=== PATIENT | male | born 1940 | race Caucasian/White ===

== ENCOUNTER 2020-09-03 08:51 | Inpatient (IN) | payer MEDICARE, OTHER, SELFPAY ==
[2020-09-03] VITALS (24 sets, daily range): BP systolic 123–173; BP diastolic 48–82; PULSE 60–78; RESP 18–34; TEMP 36.1–36.6; O2SAT 96–100; BMI 30.6
--- NOTE | ~2020-09-03 | XR_ITS ---
EXAMINATION: XR chest 1V portable EXAM DATE: 09/03/2020 09:40 INDICATION: Shortness of breath. TECHNIQUE: Portable AP frontal chest x-ray was obtained. Comparison is made to prior examination from 03/21/2018. FINDINGS: Sternotomy wires are present without findings to suggest sternal dehiscence. There is a vijay l lead pacemaker/AICD seen with leads projecting over the expected locations of the right atrial appe ndage and right ventricle. The cardiac silhouette is enlarged. Small to moderate left pleural effusio n which may be loculated. There is pulmonary vascular congestion. Left basilar subsegmental atelectas is and/or pneumonia. No pneumothorax. There are mild bony degenerative changes. Effusion and left basilar airspace disease new compared to 2018. IMPRESSION: 1. Cardiomegaly. Small to moderate left pleural effusion. 2. Segmental left basilar pneumonia and/or atelectasis. Reviewed, dictated and finalized at location A.
--- NOTE | 2020-09-03 08:53 | ECG_ITS ---
Measurements Intervals [place] Rate: 76 P: [place]: 0 QRS: 195 QRSD: 126 T: 23 QT: 391 QTc: 442 Interpretive Statements ELECTRONIC VENTRICULAR PACEMAKER BASELINE ARTIFACT- I, II, AVR, V1, V6 NO FURTHER INTERPRETATION IS POSSIBLE ATYPICAL ECG Electronically Signed On 09-03-2020 10:00:12 CDT by Lucas Chau D.O.
[2020-09-03 09:06] LABS: Base Excess ABG -2.5 mEq/l (+/-2.0); Carboxyhemoglobin 0.3 % THb (0-2.0); Fractional Inspired Oxygen 34 %; HCO3 ABG 24.6 mEq/l (22.0-26.0); Methemoglobin ABG 0.3 %THb (0-1.5); Oxygen Content ABG 12.6 %vol (16.0-22.0); Oxygen Saturation ABG 97.8 % (95.0-100.0); Oxyhemoglobin 96.6 % THb (90.0-100.0); PCO2 ABG 54.5 mmHg (35.0-45.0); PO2 ABG 118.9 mmHg (80.0-100.0); Reduced Hemoglobin 2.8 %THb (0-5.0); Total Hemoglobin 9.1 g/dL (12.0-18.0); pH ABG 7.272 (7.350-7.450)
[2020-09-03 09:07] LABS: Device NASAL CANNULA; Liters per Minute 3.5 LPM; Modified Allen's Test Pass; Site Drawn RIGHT RADIAL
--- NOTE | 2020-09-03 09:09 | ED.SOB ---
HPI - SOB/Dyspnea General Chief Complaint: Shortness of Breath/Dyspnea Stated Complaint: sob Time Seen by Provider: 09/03/20 08:53 Source: patient, EMS and RN notes reviewed Mode of arrival: EMS Limitations: no limitations History of Present Illness HPI Narrative: This is a 80 year old male with history of CHF, COPD, oxygen dependence who presents for evaluation of shortness of breath. He reports shortness of breath for 3 days that has gradually worsened. He normally wears 2 L O2 by DC and he was 91% on EMS arrival. They increased his oxygen to 4L. Patient reports his shortness of breath is worse with exertion. He denies orthopnea, chest pain, cough, fever, or chills. He has bilateral lower extremity edema that he states has been worse over the past 1 month. He states his diuretic was stopped for a while, and he started taking it again 1 week ago. HE is unsure why he was taken off the medication. His doctor's are located at [facility]. Related Data Home Medications Medication Instructions Recorded Confirmed albuterol sulfate 2 puff INHALATION QID PRN 09/03/20 09/03/20 alogliptin 12.5 mg PO DAILY 09/03/20 09/03/20 aspirin 81 mg PO DAILY 09/03/20 09/03/20 atorvastatin 40 mg PO HS 09/03/20 09/03/20 budesonide-formoterol [Symbicort] 2 puff INHALATION Q12H 09/03/20 09/03/20 cholecalciferol (vitamin D3) 25 mcg PO DAILY 09/03/20 09/03/20 cyanocobalamin (vitamin B-12) 1,000 mcg PO DAILY 09/03/20 09/03/20 ferrous sulfate 325 mg PO DAILY 09/03/20 09/03/20 isosorbide mononitrate 10 mg PO BID 09/03/20 09/03/20 magnesium oxide 400 mg PO DAILY 09/03/20 09/03/20 metformin 1,000 mg PO BID 09/03/20 09/03/20 pantoprazole [Protonix] 40 mg PO QAM 09/03/20 09/03/20 sodium bicarbonate 650 mg PO BID 09/03/20 09/03/20 tamsulosin [Flomax] 0.4 mg PO DAILY 09/03/20 09/03/20 tiotropium bromide 2 puff INHALATION DAILY 09/03/20 09/03/20 torsemide 10 mg PO QAM 09/03/20 09/03/20 Allergies Allergy/AdvReac Type Severity Reaction Status Date / Time latex Allergy Unknown Rash Verified 09/03/20 09:16 lisinopril Allergy Unknown Unknown Verified 09/03/20 15:06 Review of Systems Review of Systems: All systems reviewed & are unremarkable except as noted in HPI and below Constitutional: Constitutional: Denies chills and Denies fever(s) ENT: Denies nasal congestion Cardiovascular: Cardiovascular: Denies chest pain Respiratory: Respiratory: Denies cough and Reports dyspnea Gastrointestinal: Gastrointestinal: Denies abdominal pain, Denies nausea and Denies vomiting PMFSH Past Medical History Medical History (Updated 09/03/20 @ 17:37 by Nicole Brooks MD) 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 Blindness of right eye Unknown cause BPH (benign prostatic hyperplasia) CAD (coronary artery disease) CHF (congestive heart failure) Chronic anemia Chronic renal failure, stage 3 (moderate) Chronic respiratory failure with hypoxia He wears oxygen at 2 L per nasal cannula COPD (chronic obstructive pulmonary disease) DM2 (diabetes mellitus, type 2) Hypertension Pacemaker Sleep apnea The patient no longer uses and CPAP machine Tobacco abuse Surgical History Surgical History (Updated 09/03/20 @ 14:01 by Yolanda Naylor NP) H/O cystoscopy With bladder biopsy S/P CABG x 5 S/P heart valve repair Stented coronary artery X1 Family History Family History Daughter Scleroderma Social History Social History (Updated 09/03/20 @ 13:41 by Yolanda Naylor NP) Social History: The patient lives with his who is the durable power application development team lead for healthcare. The patient desires to be a full code but does not want to be in a vegetative state on a ventilator. Patient is retired from working for the [employer]. He had a son and a daughter but his daughter with the scleroderma. Patient does not use any alcohol, marijuana, or illicit drugs. The patient stated that he quit smok
[2020-09-03] MEDS: ALBUTEROL SULFATE NEB 2.5 MG/0.5 ML INH 15 MG INHALATION (09:14)
[2020-09-03] MEDS: IPRATROPIUM BR 0.02% INH SOLN 0.5 MG/2.5 ML VIAL 1.5 MG INHALATION (09:14)
[2020-09-03] MEDS: FUROSEMIDE INJ 40 MG/4 ML VIAL IV PUSH ×2 (09:16→18:30)
[2020-09-03] MEDS: methylPREDNISolone SOD SUCC 125 MG VIAL IV PUSH (09:16)
[2020-09-03 09:45] LABS: Basophils Percent Auto 0.2 % (0.2-1.2); Eosinophils Absolute Auto 0.1 K/mm3 (0-0.3); Hematocrit 25.8 % (42.0-52.0); Hemoglobin 7.8 g/dL (14.0-18.0); Immature Granulocyte Absolute 0.02 K/mm3 (0.00-0.031); Immature Granulocyte Percent A 0.4 % (0-0.5); Lymphocytes Percent Auto 9.8 % (18.3-44.2); Mean Corpuscular HGB Conc 30.2 g/dl (32-36); Mean Corpuscular Hemoglobin 31.5 pg (26-34); Mean Platelet Volume 9.2 fl (7.4-10.4); Monocytes Absolute Auto 0.3 K/mm3 (0.1-0.6); Monocytes Percent Auto 5.3 % (2.6-8.5); Neutrophils Absolute Auto 4.2 K/mm3 (1.3-6.7); Neutrophils Percent Auto 83.3 % (45.5-73.1); Platelet Count Result 129 k/mm3 (150-375); Red Blood Count 2.48 M/mm3 (4.6-6.20); White Blood Count 5.1 K/mm3 (4.5-10.0)
[2020-09-03 09:55] LABS: INR 1.2; Prothrombin Time 15.3 Seconds (11.1-14.7)
[2020-09-03 09:56] LABS: Partial Thromboplastin Time 28.4 SECONDS (22.3-36.8)
[2020-09-03 09:59] LABS: Anion Gap 10 mmol/L (8-16); Blood Urea Nitrogen 24 mg/dL (9-20); Calcium 9.1 mg/dL (8.4-10.2); Carbon Dioxide 26 mmol/L (22-30); Chloride 105 mmol/L (98-107); Estimated CRCL calculation 35 ml/min; Estimated Glomerular Filt Rate 39; Glucose 155 mg/dL (75-110); Potassium 4.3 mmol/L (3.4-5.0); Sodium 141 mmol/L (137-145)
[2020-09-03 10:12] LABS: NT Pro B Type Natriuretic Pept 22100 pg/mL (5-100); Troponin I 0.046 ng/mL (0.000-0.034)
[2020-09-03 10:40] LABS: Alveolar/Arterial O2 Gradient 46.7 mmHg; Device NON-INVASIVE VENT; Fractional Inspired Oxygen 30 %; HCO3 ABG 24.8 mEq/l (22.0-26.0); Modified Allen's Test Pass; Oxygen Content ABG 11.9 %vol (16.0-22.0); Oxygen Saturation ABG 97.9 % (95.0-100.0); Oxyhemoglobin 96.8 % THb (90.0-100.0); PCO2 ABG 46.4 mmHg (35.0-45.0); PO2 ABG 112.7 mmHg (80.0-100.0); PO2 FiO2 Ratio Arterial Blood 3.76 %; Site Drawn RIGHT RADIAL; Total Hemoglobin 8.6 g/dL (12.0-18.0); pH ABG 7.345 (7.350-7.450)
[2020-09-03 10:41] LABS: Non-Invasive Expiratory Pressure 8 CMH2O; Non-Invasive Inspiratory Pressure 16 CMH2O; Non-Invasive Vent Rate 4 /MIN
--- NOTE | 2020-09-03 12:53 | ADMGEN ---
This patient, Jessica Wallace, was admitted to IMU Room 201-01. Patient/family oriented to hospital policies and general routines including ID bracelet, bed and alarms, visiting hours, pain management, procedures, bathroom and other care routines, personal items, smoking policy, room service/diet, and visiting hours. Information on how to activate the Rapid Response Team has been discussed. Patient/Family are encouraged to report perceived risks to care and to ask questions if they do not understand what they are told or what they should do.
--- NOTE | 2020-09-03 13:23 | PM.IMHP ---
H&P: HPI History of Present Illness Date/Time: 09/03/20 13:23 80-year-old male patient who resides at home with his . He has a history of COPD, CHF and chronic hypoxia with chronic oxygen use at 2 L per nasal cannula. He also has a history of obstructive sleep apnea but no longer uses his CPAP machine. The patient stated that he typically goes to the NH but they have no beds today. 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 The patient stated that he was taken off of his diuretics due to his renal failure. The patient stated that he was recently put back on his diuretics about a week ago but he has been having worsening shortness of breath over the last 3 days. This is been a gradual affect. The patient denies any orthopnea, fever, chills, cough or chest pain. He has 4+ pitting edema to his lower extremities. The ER provider attempted to transfer the patient to be a hospital but the do not have any beds currently. The patient is okay with staying here at this hospital. The patient was placed on a BiPAP the settings of 16/8 with a rate of 4 and oxygen setting 30%. His H&H today is 7.8 and 25.8 without any recent labs to compare this with. Platelet counts 129. Initial pH on the ABGs 7.27 to. After the BiPAP 7.345. To 46.4 from 54.5. The patient is talking in full sentence with the BiPAP on he seems to be tolerating the BiPAP well. Today the patient's creatinine is 1.7 again I have recent labs to compare with this level. [place] 0[place] [id number].. Small to moderate left pleural effusion. Segmental left basilar pneumonia and/or atelectasis. The patient stated that stated that he had an echo performed approximately 3 weeks ago at [facility], and formerly [facility] in the emergency room. The patient is being admitted to inpatient services on the date of service of 09/03/2020 Chief Complaint: Shortness of breath Review of Systems Review of Systems: All systems reviewed & are unremarkable except as noted in HPI and below Constitutional: Constitutional: Reports as per HPI and Reports no additional constitutional complaints Eyes: Eyes: Reports as per HPI and Reports no additional eye complaints ENT: Reports system reviewed and no additional complaints, except as documented and Reports Normal hearing present Cardiovascular: Cardiovascular: Reports no additional cardiovascular complaints Respiratory: Respiratory: Reports no additional respiratory complaints and Reports no additional respiratory complaints Gastrointestinal: Gastrointestinal: Reports as per HPI and Reports no additional gastrointestinal complaints Musculoskeletal: Musculoskeletal: Reports no additional musculoskeletal complaints Integumentary/Breasts: Skin/Breast: Reports system reviewed and no additional complaints, except as docu and Reports as per HPI Neurologic: Reports system reviewed and no additional complaints, except as documented, Reports as per HPI and Reports Normal hearing present Psychiatric: Psychiatric: Reports no additional psychiatric complaints and Reports as per HPI Endocrine: Endocrine: Reports no additional endocrine complaints Hematologic/Lymphatic: Hematologic/Lymphatic: Reports no additional hematologic/lymphatic complaints Allergic/Immunologic: Allergic/Immunologic: Reports no additional allergic/immunologic complaints [facility] Past Medical History Medical History (Updated 09/03/20 @ 14:11 by Yolanda Naylor NP) 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 Blindness of right eye Unknown cause BPH (benign prostatic hyperplasia) CAD (coronary artery disease) CHF (congestive heart failure) Chronic anemia Chronic renal failure, stage 3 (moderate) Chronic respiratory failure with hypoxia He wears oxygen at 2 L per nasal cannula COPD (chronic obstructive pulmonary disease) DM2 (diabetes mellitus, type 2) Hypertension Pacemaker Sleep apnea The patient no longer uses and CPAP machine Tobacco abuse Surgical History Surgical History
[2020-09-03] MEDS: ALBUTEROL SULFATE NEB 2.5 MG/0.5 ML INH 5 MG INHALATION ×2 (14:01→19:18)
[2020-09-03] MEDS: IPRATROPIUM BR 0.02% INH SOLN 0.5 MG/2.5 ML VIAL INHALATION ×2 (14:02→19:18)
[2020-09-03] MEDS: methylPREDNISolone SOD SUCC 125 MG VIAL 60 MG IV PUSH ×2 (16:14→21:13)
[2020-09-03 16:52] LABS: Glucose Point of Care 169 mg/dl (65-105)
[2020-09-03 17:40] LABS: Hemoglobin A1C 5.4 % (<5.7)
[2020-09-03] MEDS: SODIUM BICARBONATE TAB 650 MG TABLET PO (18:29)
[2020-09-03] MEDS: ISOSORBIDE MONONITRATE 10 MG TABLET PO (18:32)
[2020-09-03 21:01] LABS: Glucose Point of Care 187 mg/dl (65-105)
[2020-09-03] MEDS: ATORVASTATIN 40 MG TABLET PO (21:14)
[2020-09-04] VITALS (23 sets, daily range): BP systolic 110–117; BP diastolic 41–48; PULSE 60–100; RESP 15–21; TEMP 36.1–36.6; O2SAT 95–100
[2020-09-04] MEDS: IPRATROPIUM BR 0.02% INH SOLN 0.5 MG/2.5 ML VIAL INHALATION ×4 (02:11→20:14)
[2020-09-04] MEDS: ALBUTEROL SULFATE NEB 2.5 MG/0.5 ML INH 5 MG INHALATION ×4 (02:12→20:14)
[2020-09-04 05:37] LABS: Hematocrit 23.1 % (42.0-52.0); Hemoglobin 7.1 g/dL (14.0-18.0); Immature Granulocyte Absolute 0.01 K/mm3 (0.00-0.031); Immature Granulocyte Percent A 0.4 % (0-0.5); Lymphocytes Absolute Auto 0.14 K/mm3 (0.9-3.2); Lymphocytes Percent Auto 5.9 % (18.3-44.2); Mean Corpuscular HGB Conc 30.7 g/dl (32-36); Mean Corpuscular Hemoglobin 31.7 pg (26-34); Mean Corpuscular Volume 103.1 fl (80-100); Mean Platelet Volume 10.1 fl (7.4-10.4); Monocytes Absolute Auto 0.1 K/mm3 (0.1-0.6); Monocytes Percent Auto 2.1 % (2.6-8.5); Neutrophils Absolute Auto 2.2 K/mm3 (1.3-6.7); Neutrophils Percent Auto 91.6 % (45.5-73.1); Platelet Count Result 138 k/mm3 (150-375); Red Blood Count 2.24 M/mm3 (4.6-6.20); Red Cell Distribution Width 15.9 % (11.5-14.5); White Blood Count 2.4 K/mm3 (4.5-10.0)
[2020-09-04 05:45] LABS: Alanine Aminotransferase 11 U/L (4-50); Albumin Level 3.4 g/dL (3.5-5.1); Alkaline Phosphatase 59 U/L (38-126); Anion Gap 13 mmol/L (8-16); Aspartate Amino Transferase 18 U/L (17-59); Bilirubin,Total 0.7 mg/dL (0.2-1.3); Blood Urea Nitrogen 30 mg/dL (9-20); Calcium 8.8 mg/dL (8.4-10.2); Carbon Dioxide 23 mmol/L (22-30); Chloride 103 mmol/L (98-107); Estimated CRCL calculation 40 ml/min; Estimated Glomerular Filt Rate 45; Glucose 210 mg/dL (75-110); Magnesium 1.5 mg/dL (1.6-2.3); Potassium 4.1 mmol/L (3.4-5.0); Sodium 139 mmol/L (137-145)
[2020-09-04] MEDS: methylPREDNISolone SOD SUCC 125 MG VIAL 60 MG IV PUSH ×3 (06:05→22:23)
[2020-09-04] MEDS: FUROSEMIDE INJ 40 MG/4 ML VIAL IV PUSH ×2 (06:05→17:51)
[2020-09-04 06:53] LABS: Thyroid Stimulating Hormone Reflex 0.627 uIU/mL (0.465-4.68)
[2020-09-04 08:45] LABS: Glucose Point of Care 251 mg/dl (65-105)
[2020-09-04] MEDS: SODIUM BICARBONATE TAB 650 MG TABLET PO ×2 (09:11→17:50)
[2020-09-04] MEDS: MAGNESIUM OXIDE 400 MG TABLET PO (09:12)
[2020-09-04] MEDS: TAMSULOSIN HCL 0.4 MG CAPSULE PO (09:12)
[2020-09-04] MEDS: ISOSORBIDE MONONITRATE 10 MG TABLET PO ×2 (09:12→17:50)
[2020-09-04] MEDS: CHOLECALCIFEROL 1,000 UNITS TABLET 1000 UNITS PO (09:12)
[2020-09-04] MEDS: PANTOPRAZOLE 40 MG TABLET PO (09:13)
[2020-09-04] MEDS: ASPIRIN 81 MG CHEWABLE TABLET PO (09:13)
[2020-09-04] MEDS: INSULIN ASPART (*BKC) 100 UNITS/ML SUB-Q ×3 (09:13→18:02)
[2020-09-04] MEDS: FERROUS SULFATE 324 MG TABLET PO (09:13)
[2020-09-04] MEDS: CYANOCOBALAMIN 1,000 MCG TABLET 1000 MCG PO (09:13)
[2020-09-04] MEDS: MAGNESIUM SULF 2 GM/WATER 50ML 2 GM/50 ML BAG IVPB (11:00)
[2020-09-04 12:50] LABS: Glucose Point of Care 235 mg/dl (65-105)
--- NOTE | 2020-09-04 13:55 | PM.IMPN ---
Progress Note: A&P Assessment and Plan (1) CHF exacerbation: Code(s): I50.9 - Heart failure, unspecified Status: Acute Assessment and Plan: Continue with IV Lasix. We will attempt to get the results of his echo from 3 months ago from the [facility]. The patient may benefit from Bumex versus Lasix considering his chronic renal failure. The patient has a can handler at [facility]. Patient is on of fluid restrictions. He has 4+ pitting edema to lower extremities. The patient had been taken off of diuretics for brief period time due to his renal failure. Patient is now on a 2 g sodium diet. (2) Chronic respiratory failure with hypoxia: Code(s): J96.11 - Chronic respiratory failure with hypoxia Status: Chronic Assessment and Plan: The patient had been on oxygen at 2 L per nasal cannula at home and is now on a BiPAP. Please wean off the BiPAP when possible. (3) Chronic renal failure, stage 3 (moderate): Code(s): N18.30 - Chronic kidney disease, stage 3 unspecified Status: Acute Assessment and Plan: We can get records from [facility] however the patient stated that he is seeing a surveying crew stake runner at [facility] we can try to get records from there. (4) Sleep apnea: Code(s): G47.30 - Sleep apnea, unspecified Status: Chronic Assessment and Plan: The patient no longer uses a CPAP machine. (5) CAD (coronary artery disease): Code(s): I25.10 - Atherosclerotic heart disease of [place] coronary artery without angina pectoris Status: Chronic Assessment and Plan: The patient has a history of 5 vessel CABG and a cardiac stent. Continue with aspirin and atorvastatin (6) COPD (chronic obstructive pulmonary disease): Code(s): J44.9 - Chronic obstructive pulmonary disease, unspecified Status: Chronic Assessment and Plan: Patient is currently on Solu-Medrol. He is currently on a BiPAP. Otherwise he wears oxygen at 2 L per nasal cannula. Continue with Symbicort. Continue with magnesium (7) Blindness of right eye: Code(s): H54.40 - Blindness, one eye, unspecified eye Status: Chronic Assessment and Plan: Patient is unsure of what happened in the right eye he has been to the eye doctor but is not fixable. His right pupil is bigger than the left. (8) BPH (benign prostatic hyperplasia): Code(s): N40.0 - Benign prostatic hyperplasia without lower urinary tract symptoms Status: Chronic Assessment and Plan: Continue with Flomax. (9) Chronic anemia: Code(s): D64.9 - Anemia, unspecified Status: Chronic Assessment and Plan: Continue to monitor. Patient has chronic renal failure so I suspect that the chronic anemia is secondary to his renal failure. The patient is on ferrous sulfate. He also takes B12. (10) DM2 (diabetes mellitus, type 2): Code(s): E11.9 - Type 2 diabetes mellitus without complications Status: Chronic Assessment and Plan: Accu-Cheks AC and HS. I did not restart his alogliptin as a side effect is listed as congestive heart failure. I did not continue with metformin as he has renal failure and I am not sure where his baseline levels are. Will do sliding scale insulin for now. Additional Plan 09/04/2020 Patient with acute exacerbation of CHF and worsening acute hypoxemic respiratory failure normally 2 L O2 dependent currently requiring 4 L. he has been weaned off the BiPAP now [facility] however there are no beds available at this time will consult cardiology In light of patients complicated cardiac history with CABG and stenting Continue current medical therapy with Lasix, duo nebs, steroids, BiPAP, supplemental O2, fluid restriction Subjective Date/time seen: 09/04/20 13:59 Patient lying in bed is bedside. We reviewed his history and admission, patients desire to go to the [place]
[2020-09-04 18:01] LABS: Glucose Point of Care 252 mg/dl (65-105)
[2020-09-04 19:06] LABS: Alveolar/Arterial O2 Gradient 58.3 mmHg; Fractional Inspired Oxygen 36 %; Oxygen Content ABG 11.4 %vol (16.0-22.0); Oxygen Saturation ABG 98.9 % (95.0-100.0); Oxyhemoglobin 97.2 % THb (90.0-100.0); PCO2 ABG 43.9 mmHg (35.0-45.0); PO2 ABG 147.5 mmHg (80.0-100.0); Total Hemoglobin 8.1 g/dL (12.0-18.0); pH ABG 7.406 (7.350-7.450)
[2020-09-04 19:07] LABS: Site Drawn RIGHT BRACHIAL
[2020-09-04 19:08] LABS: Device NASAL CANNULA
[2020-09-04 20:00] LABS: Glucose Point of Care 216 mg/dl (65-105)
--- NOTE | 2020-09-04 21:32 | ECG_ITS ---
Measurements Intervals [place] Rate: 117 P: [place]: 0 QRS: 268 QRSD: 139 T: 113 QT: 376 QTc: 525 Interpretive Statements ELECTRONIC VENTRICULAR PACEMAKER FREQUENT FUSION COMPLEXES NO FURTHER INTERPRETATION IS POSSIBLE ABNORMAL ECG Electronically Signed On 09-05-2020 7:14:30 CDT by Lucas Chau D.O.
--- NOTE | 2020-09-04 22:11 | ECG_ITS ---
Measurements Intervals [place] Rate: 102 P: 226 [place]: 227 QRS: 210 QRSD: 164 T: 38 QT: 420 QTc: 547 Interpretive Statements ELECTRONIC VENTRICULAR PACEMAKER FUSION COMPLEXES PROBABLY UNDERLYING ECTOPIC ATRIAL TACHYCARDIA NO FURTHER INTERPRETATION IS POSSIBLE ABNORMAL ECG Electronically Signed On 09-05-2020 20:58:19 CDT by Lucas Chau D.O.
[2020-09-04] MEDS: NITROGLYCERIN SL 0.4 MG TABLET SUBLINGUAL (22:20)
[2020-09-04 22:22] LABS: Troponin I 0.059 ng/mL (0.000-0.034)
[2020-09-04] MEDS: ATORVASTATIN 40 MG TABLET PO (22:23)
--- NOTE | 2020-09-04 22:52 | PM.EVENT ---
Event Note Event Note Event Note: Nursing staff called when the patient began having chest pain. The patient is having oxygen saturations over in the upper 80s to low 90s. The pain has in the left chest radiating down the left arm. Stat EKG was performed with repeat EKG 30 minutes later. Initial EKG demonstrated ST depression in V2 only repeat EKG was back to the patient's baseline. Staff troponin was ordered and was changed from 0.046 (on admission 09/03/2020) up to 0.059. After these interventions were performed that was noted that the patient oxygen was flowing through the nebulizer treatment that was no longer in place. He did not have any supplemental oxygen through his nasal cannula. After was placed back on nasal cannula oxygen patient's chest pain resolved. His hypoxia improved. Assessment and plan: Chest pain--likely due to relative hypoxia due to lack of nasal cannula oxygen. Will repeat 1 more set of troponins. However troponin profile is relatively flat.
[2020-09-05] VITALS (28 sets, daily range): BP systolic 123–139; BP diastolic 40–75; PULSE 60–110; RESP 12–24; TEMP 36.2–36.7; O2SAT 98–100; BMI 30.1
[2020-09-05] MEDS: ALBUTEROL SULFATE NEB 2.5 MG/0.5 ML INH 5 MG INHALATION ×4 (01:08→20:35)
[2020-09-05] MEDS: IPRATROPIUM BR 0.02% INH SOLN 0.5 MG/2.5 ML VIAL INHALATION ×4 (01:09→20:35)
[2020-09-05 05:41] LABS: Hematocrit 23.2 % (42.0-52.0); Hemoglobin 7.2 g/dL (14.0-18.0); Immature Granulocyte Absolute 0.03 K/mm3 (0.00-0.031); Immature Granulocyte Percent A 0.8 % (0-0.5); Lymphocytes Absolute Auto 0.08 K/mm3 (0.9-3.2); Mean Corpuscular Hemoglobin 31.7 pg (26-34); Mean Corpuscular Volume 102.2 fl (80-100); Mean Platelet Volume 9.9 fl (7.4-10.4); Monocytes Absolute Auto 0.1 K/mm3 (0.1-0.6); Monocytes Percent Auto 1.8 % (2.6-8.5); Neutrophils Absolute Auto 3.7 K/mm3 (1.3-6.7); Neutrophils Percent Auto 95.4 % (45.5-73.1); Platelet Count Result 146 k/mm3 (150-375); Red Blood Count 2.27 M/mm3 (4.6-6.20); Red Cell Distribution Width 16.1 % (11.5-14.5); White Blood Count 3.9 K/mm3 (4.5-10.0)
[2020-09-05 05:54] LABS: Anion Gap 10 mmol/L (8-16); Blood Urea Nitrogen 33 mg/dL (9-20); Calcium 9.2 mg/dL (8.4-10.2); Carbon Dioxide 27 mmol/L (22-30); Chloride 102 mmol/L (98-107); Estimated CRCL calculation 38 ml/min; Estimated Glomerular Filt Rate 42; Glucose 269 mg/dL (75-110); Magnesium 1.9 mg/dL (1.6-2.3); Potassium 4.1 mmol/L (3.4-5.0); Sodium 139 mmol/L (137-145)
[2020-09-05 06:17] LABS: Platelet Estimate Adequate (Adequate)
[2020-09-05 06:20] LABS: Hypochromasia 1+ (NORMAL); Poikilocytosis 1+ (NORMAL)
[2020-09-05] MEDS: FUROSEMIDE INJ 40 MG/4 ML VIAL IV PUSH ×2 (06:20→17:45)
[2020-09-05] MEDS: methylPREDNISolone SOD SUCC 125 MG VIAL 60 MG IV PUSH ×3 (06:20→20:31)
[2020-09-05 06:21] LABS: Acanthocytes 1+ (NORMAL); Anisocytosis 1+ (NORMAL); Burr Cells 1+ (NORMAL)
[2020-09-05 08:11] LABS: Glucose Point of Care 283 mg/dl (65-105)
[2020-09-05] MEDS: CHOLECALCIFEROL 1,000 UNITS TABLET 1000 UNITS PO (08:52)
[2020-09-05] MEDS: CYANOCOBALAMIN 1,000 MCG TABLET 1000 MCG PO (08:52)
[2020-09-05] MEDS: INSULIN ASPART (*BKC) 100 UNITS/ML SUB-Q ×3 (08:53→17:45)
[2020-09-05] MEDS: SODIUM BICARBONATE TAB 650 MG TABLET PO ×2 (08:53→17:45)
[2020-09-05] MEDS: ASPIRIN 81 MG CHEWABLE TABLET PO (08:53)
[2020-09-05] MEDS: ISOSORBIDE MONONITRATE 10 MG TABLET PO ×2 (08:53→17:45)
[2020-09-05] MEDS: MAGNESIUM OXIDE 400 MG TABLET PO (08:53)
[2020-09-05] MEDS: FERROUS SULFATE 324 MG TABLET PO (08:53)
[2020-09-05] MEDS: PANTOPRAZOLE 40 MG TABLET PO (08:53)
[2020-09-05] MEDS: TAMSULOSIN HCL 0.4 MG CAPSULE PO (08:53)
--- NOTE | 2020-09-05 08:55 | PM.CNCAR ---
Assessment and Plan Assessment and plan (1) Acute respiratory failure with hypercapnia: Code(s): J96.02 - Acute respiratory failure with hypercapnia Status: Acute Assessment and Plan: likely is multifactorial, due to COPD exacerbation as well as decompensation of congestive heart failure which is likely is due to systolic dysfunction (2) CHF exacerbation: Code(s): I50.9 - Heart failure, unspecified Status: Acute Assessment and Plan: will get echocardiogram to evaluate current status left ventricular systolic function, check BNP, gentle diuresis follow up input and output closely (3) Chronic anemia: Code(s): D64.9 - Anemia, unspecified Status: Chronic (4) Chronic respiratory failure with hypoxia: Code(s): J96.11 - Chronic respiratory failure with hypoxia Status: Chronic (5) CAD (coronary artery disease): Code(s): I25.10 - Atherosclerotic heart disease of [place] coronary artery without angina pectoris Status: Chronic Assessment and Plan: status post coronary bypass surgery, and status post stent placement, he had 1 episode of chest pain but cardiac troponin is negative, EKG is unremarkable will continue to monitor, repeat 1 more troponin, not a candidate for heparin now, due to anemia, and due to the fact that troponin elevation is very very minimal. Would only consider heparin if he has significant elevation of troponin History of Present Illness History of Present Illness Consult date/time: 09/05/20 08:55 80 years old gentleman with history of coronary disease status post coronary bypass surgery, history of aortic valve replacement, history of stent placement came to hospital because of worsening shortness of breath with cough and admitted to the hospital with COPD exacerbation. He has ICD with possible Bi V, but he is not sure about that he stated that he used to go to the [facility] for cardiac care but he is not sure about anything recent as far as follow-up. On the monitor seems to be having ventricular paced rhythm. 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 BPH (benign prostatic hyperplasia) CAD (coronary artery disease) CHF (congestive heart failure) Chronic anemia Chronic renal failure, stage 3 (moderate) Chronic respiratory failure with hypoxia He wears oxygen at 2 L per nasal cannula COPD (chronic obstructive pulmonary disease) DM2 (diabetes mellitus, type 2) Hypertension Pacemaker Sleep apnea The patient no longer uses and CPAP machine Tobacco abuse Surgical History Surgical History H/O cystoscopy With bladder biopsy S/P CABG x 5 S/P heart valve repair Stented coronary artery X1 Family History Family History Daughter Scleroderma Social History Social History (Updated 09/03/20 @ 13:41 by Yolanda Naylor NP) Social History: The patient lives with his who is the durable power patent prosecution attorney for healthcare. The patient desires to be a full code but does not want to be in a vegetative state on a ventilator. Patient is retired from working for the [employer]. He had a son and a daughter but his daughter with the scleroderma. Patient does not use any alcohol, marijuana, or illicit drugs. The patient state
[2020-09-05 09:44] LABS: Cholesterol 100 mg/dL (0-200); HDL Direct 42 mg/dL; Triglycerides 49 mg/dL (<150)
[2020-09-05 09:57] LABS: LDL Cholesterol Direct 41 mg/dL; NT Pro B Type Natriuretic Pept 28300 pg/mL (5-100)
[2020-09-05 12:06] LABS: Glucose Point of Care 275 mg/dl (65-105)
[2020-09-05 16:24] LABS: Glucose Point of Care 299 mg/dl (65-105)
--- NOTE | 2020-09-05 16:37 | PM.IMPN ---
Progress Note: A&P Assessment and Plan (1) CHF exacerbation: Code(s): I50.9 - Heart failure, unspecified Status: Acute Assessment and Plan: Continue with IV Lasix. We will attempt to get the results of his echo from 3 months ago from the [facility]. The patient may benefit from Bumex versus Lasix considering his chronic renal failure. 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 Patient is on of fluid restrictions. He has 4+ pitting edema to lower extremities. The patient had been taken off of diuretics for brief period time due to his renal failure. Patient is now on a 2 g sodium diet. contineu wth iv dirueis. (2) Chronic respiratory failure with hypoxia: Code(s): J96.11 - Chronic respiratory failure with hypoxia Status: Chronic Assessment and Plan: The patient had been on oxygen at 2 L per nasal cannula at home and is now on a BiPAP. Please wean off the BiPAP when possible. (3) Chronic renal failure, stage 3 (moderate): Code(s): N18.30 - Chronic kidney disease, stage 3 unspecified Status: Acute Assessment and Plan: We can get records from [facility] however the patient stated that he is seeing a operational review sergeant at [facility] we can try to get records from there. (4) Sleep apnea: Code(s): G47.30 - Sleep apnea, unspecified Status: Chronic Assessment and Plan: The patient no longer uses a CPAP machine. likely needs cpap at home. (5) CAD (coronary artery disease): Code(s): I25.10 - Atherosclerotic heart disease of [place] coronary artery without angina pectoris Status: Chronic Assessment and Plan: The patient has a history of 5 vessel CABG and a cardiac stent. Continue with aspirin and atorvastatin (6) COPD (chronic obstructive pulmonary disease): Code(s): J44.9 - Chronic obstructive pulmonary disease, unspecified Status: Chronic Assessment and Plan: Patient is currently on Solu-Medrol. He is currently on a BiPAP. Otherwise he wears oxygen at 2 L per nasal cannula. Continue with Symbicort. Continue with magnesium (7) Blindness of right eye: Code(s): H54.40 - Blindness, one eye, unspecified eye Status: Chronic Assessment and Plan: Patient is unsure of what happened in the right eye he has been to the eye doctor but is not fixable. His right pupil is bigger than the left. (8) BPH (benign prostatic hyperplasia): Code(s): N40.0 - Benign prostatic hyperplasia without lower urinary tract symptoms Status: Chronic Assessment and Plan: Continue with Flomax. (9) Chronic anemia: Code(s): D64.9 - Anemia, unspecified Status: Chronic Assessment and Plan: Continue to monitor. Patient has chronic renal failure so I suspect that the chronic anemia is secondary to his renal failure. The patient is on ferrous sulfate. He also takes B12. (10) DM2 (diabetes mellitus, type 2): Code(s): E11.9 - Type 2 diabetes mellitus without complications Status: Chronic Assessment and Plan: Accu-Cheks AC and HS. I did not restart his alogliptin as a side effect is listed as congestive heart failure. I did not continue with metformin as he has renal failure and I am not sure where his baseline levels are. Will do sliding scale insulin for now. Additional Plan 09/04/2020 Patient with acute exacerbation of CHF and worsening acute hypoxemic respiratory failure normally 2 L O2 dependent currently requiring 4 L. he has been weaned off the BiPAP now [facility] however there are no beds available at this time will consult cardiology In light of patients complicated cardiac history with CABG and stenting Continue current medical therapy with Lasix, duo nebs, steroids, BiPAP, supplemental O2, fluid restriction 09/05: copd exacerbation. and chf exacerbation.acute hypoxic hypercapnic resp failre on chronic 2l oxyge
[2020-09-05 20:23] LABS: Glucose Point of Care 292 mg/dl (65-105)
[2020-09-05] MEDS: ATORVASTATIN 40 MG TABLET PO (20:31)
[2020-09-06] VITALS (21 sets, daily range): BP systolic 112–136; BP diastolic 49–63; PULSE 66–118; RESP 18–24; TEMP 35.6–36.7; O2SAT 97–100
--- NOTE | 2020-09-06 | ECHO_ITS ---
Patient Info Name: Jessica Wallace Age: 80 years : 1940 Gender: Male Ht: 68 in Wt: 198 lbs BSA: 2.10 m2 HR: 83 bpm BP: 136 / 53 mmHg Technical Quality: Good Exam Date: 09/06/2020 8:50 AM Exam Location: [facility] Patient Status: Inpatient Admit Date: 09/03/2020 Staff Ordering Physician: Jose Waterman MD Asset Specialist: Mague Cavazos RDCS Attending Provider: Olu Glasgow MD Exam Type: CA echo doppler color flow Study Info Indications I50.9 - Heart failure, unspecified Complete two-dimensional, color flow and Doppler transthoracic echocardiogram is performed. Summary 1. Complete two-dimensional, color flow and Doppler transthoracic echocardiogram is performed. 2. Left ventricular chamber dimension is mildly enlarged. 3. Left ventricular systolic function is normal, estimated at 55-60%. 4. Right ventricle appears moderately dilated with mild systolic dysfunction. 5. Left atrial chamber dimension is moderately enlarged. 6. Right atrial chamber dimension is mildly enlarged. 7. Bio prosthesis is noted in the aortic position. There is no aortic regurgitation or mia valvular regurgitation. There is no aortic stenosis. 8. Mitral valve appears heavily calcified (Vs less likely ring or prosthesis in the mitral position). 9. There is moderate mitral stenosis. Mean inflow gradient across mitral valve is 7 mmHg at HR 90 mmHg. 10. There is mild ot moderate mitral regurgitation. 11. There is moderate tricuspid valve regurgitation. 12. Moderate pulmonary hypertension, estimated pulmonary arterial systolic pressure is 50-55 mmHg. 13. Dilated inferior vena cava with <50% collapse upon inspiration consistent with elevated right atrial pressure. 14. There is no pericardial effusion. Left Ventricle Left ventricular chamber dimension is mildly enlarged. Left ventricular systolic function is normal, estimated at 55-60%. There is no increased left ventricular wall thickness. Left ventricular septal wall motion is normal. The left ventricular diastolic function is indeterminate due to significant mitral annular calcification . Right Ventricle ICD wire is noted in the right ventricle. Right ventricle appears moderately dilated with mild systolic dysfunction. Left Atria Left atrial chamber dimension is moderately enlarged. Right Atria Right atrial chamber dimension is mildly enlarged. Aortic Valve Bio prosthesis is noted in the aortic position. There is no aortic regurgitation or mia valvular regurgitation. There is no aortic stenosis. Pulmonic Valve The pulmonic valve is normal. There is no pulmonic valve stenosis. There is trace pulmonic regurgitation. Mitral Valve Mitral valve appears heavily calcified (Vs less likely ring or prosthesis in the mitral position). There is moderate mitral stenosis. Mean inflow gradient across mitral valve is 7 mmHg at HR 90 mmHg. There is mild ot moderate mitral regurgitation. Tricuspid Valve The tricuspid valve leaflets are normal. There is moderate tricuspid valve regurgitation. Moderate pulmonary hypertension, estimated pulmonary arterial systolic pressure is 50-55 mmHg. Pericardium/Pleural The pericardium appears normal. There is no pericardial effusion. Inferior Vena Cava Dilated inferior vena cava with <50% collapse upon inspiration consistent with elevated right atrial pressure. Aorta The aortic root size at the sinus of Valsalva is normal. The prox ascending aorta size is normal. Left Ventricular
[2020-09-06 00:34] LABS: Anion Gap 9 mmol/L (8-16); Blood Urea Nitrogen 35 mg/dL (9-20); Calcium 9.2 mg/dL (8.4-10.2); Carbon Dioxide 29 mmol/L (22-30); Chloride 101 mmol/L (98-107); Estimated CRCL calculation 37 ml/min; Estimated Glomerular Filt Rate 42; Glucose 307 mg/dL (75-110); Magnesium 1.8 mg/dL (1.6-2.3); Potassium 3.7 mmol/L (3.4-5.0); Sodium 139 mmol/L (137-145)
[2020-09-06] MEDS: ALBUTEROL SULFATE NEB 2.5 MG/0.5 ML INH 5 MG INHALATION ×4 (02:12→20:15)
[2020-09-06] MEDS: IPRATROPIUM BR 0.02% INH SOLN 0.5 MG/2.5 ML VIAL INHALATION ×4 (02:12→20:16)
[2020-09-06 04:51] LABS: Hematocrit 23.2 % (42.0-52.0); Hemoglobin 7.3 g/dL (14.0-18.0); Immature Granulocyte Absolute 0.01 K/mm3 (0.00-0.031); Immature Granulocyte Percent A 0.3 % (0-0.5); Lymphocytes Absolute Auto 0.07 K/mm3 (0.9-3.2); Lymphocytes Percent Auto 2.2 % (18.3-44.2); Mean Corpuscular HGB Conc 31.5 g/dl (32-36); Mean Corpuscular Hemoglobin 31.6 pg (26-34); Mean Corpuscular Volume 100.4 fl (80-100); Mean Platelet Volume 10.1 fl (7.4-10.4); Monocytes Absolute Auto 0.1 K/mm3 (0.1-0.6); Monocytes Percent Auto 2.5 % (2.6-8.5); Platelet Count Result 144 k/mm3 (150-375); Red Blood Count 2.31 M/mm3 (4.6-6.20); White Blood Count 3.2 K/mm3 (4.5-10.0)
[2020-09-06 05:05] LABS: Anion Gap 9 mmol/L (8-16); Blood Urea Nitrogen 36 mg/dL (9-20); Calcium 9.1 mg/dL (8.4-10.2); Carbon Dioxide 30 mmol/L (22-30); Chloride 101 mmol/L (98-107); Estimated CRCL calculation 37 ml/min; Estimated Glomerular Filt Rate 42; Glucose 332 mg/dL (75-110); Potassium 3.8 mmol/L (3.4-5.0); Sodium 140 mmol/L (137-145)
[2020-09-06] MEDS: FUROSEMIDE INJ 40 MG/4 ML VIAL IV PUSH ×2 (05:41→17:05)
[2020-09-06] MEDS: methylPREDNISolone SOD SUCC 125 MG VIAL 60 MG IV PUSH ×3 (05:42→21:27)
--- NOTE | 2020-09-06 07:36 | PM.PNCARD ---
Progress Note: A&P Assessment and Plan (1) Acute respiratory failure with hypercapnia: Code(s): J96.02 - Acute respiratory failure with hypercapnia Status: Acute Assessment and Plan: likely is multifactorial, due to COPD exacerbation as well as decompensation of congestive heart failure which is likely is due to systolic dysfunction (2) CHF exacerbation: Code(s): I50.9 - Heart failure, unspecified Status: Acute Assessment and Plan: will get echocardiogram to evaluate current status left ventricular systolic function, check BNP, gentle diuresis follow up input and output closely (3) Chronic anemia: Code(s): D64.9 - Anemia, unspecified Status: Chronic (4) Chronic respiratory failure with hypoxia: Code(s): J96.11 - Chronic respiratory failure with hypoxia Status: Chronic (5) CAD (coronary artery disease): Code(s): I25.10 - Atherosclerotic heart disease of [place] coronary artery without angina pectoris Status: Chronic Assessment and Plan: status post coronary bypass surgery, and status post stent placement, he had 1 episode of chest pain with borderline elevated troponin, but no recurrence, will continue follow-up. Subjective Date/time seen: 09/06/20 07:36 He feels better today, still on the CPAP this morning, no chest pain, no orthopnea any more. Still with mild leg swelling Exam Narrative: Exam Narrative: Awake alert oriented x3 not in acute distress Neck is supple no obvious JVD, no carotid bruit Chest: decreased breathing sound with significant wheezing noted bilaterally Cardiovascular: Regular rate and rhythm, 2/6 systolic murmur noted left sternal border Abdomen: Soft nontender bowel sounds positive Extremities: +2 edema, he has decreased pulses distally bilaterally Objective Data Vital Signs Vital Signs: Vital Signs - 24 hr 09/05/20 07:50 09/05/20 07:54 09/05/20 08:00 Temperature Pulse Rate 87 60 Respiratory Rate 20 Blood Pressure Pulse Oximetry 100 98 09/05/20 08:03 09/05/20 08:16 09/05/20 10:00 Temperature 36.2 C L Pulse Rate 63 60 74 Respiratory Rate 20 22 H Blood Pressure 123/49 L Pulse Oximetry 100 09/05/20 12:00 09/05/20 12:09 09/05/20 13:17 Temperature 36.4 C L Pulse Rate 106 H 110 H 60 Respiratory Rate 20 20 Blood Pressure 130/65 Pulse Oximetry 98 100 09/05/20 13:27 09/05/20 14:00 09/05/20 16:00 Temperature Pulse Rate 66 82 72 Respiratory Rate 20 Blood Pressure Pulse Oximetry 98 09/05/20 16:27 09/05/20 18:00 09/05/20 20:00 Temperature 36.3 C L 36.4 C Pulse Rate 75 84 66 Respiratory Rate 12 20 Blood Pressure 130/40 L 133/62 Pulse Oximetry 100 98 09/05/20 20:36 09/05/20 20:40 09/05/20 20:48 Temperature Pulse Rate 68 67 Respiratory Rate 20 20 Blood Pressure Pulse Oximetry 98 09/05/20 22:00 09/05/20 23:10 09/05/20 23:53 Temperature 36.7 C Pulse Rate 78 65 86 Respiratory Rate 24 H 20 Blood Pressure 128/75 Pulse Oximetry 99 100 09/06/20 00:00 09/06/20 02:00 09/06/20 02:15 Temperature Pulse Rate 75 67 71 Respiratory Rate 20 20 Blood Pressure Pulse Oximetry 100 97 09/06/20 04:00 09/06/20 06:00 Temperature 36.7 C Pulse Rate 74 93 Respiratory Rate 20 Blood Pressure 136/53 L Pulse Oximetry 100 Intake/Output Intake/Output: Intake & Output 09/03/20 09/04/20 09/05/20 09/06/20 23:59 23:59 23:59 23:59 Intake Total 490 1820 720 250 Output Total 1125 1350 1600 [address] [place] [id number] 184 [phone] [phone] Meds/Results Medications: Active Medications Generic Name Dose Route Start Last Admin Trade Name Radha PRN Reason Stop Dose Admin Albuterol 5 mg 09/03/20 14:00 09/06/20 02:12 Albuterol Sulfate Neb 2.5 Mg/0.5 Ml Inh INHALATION 5 mg Q6HRT WARD Administration Aspirin 81 mg 09/04/20 09:00 09/05/20 08:53 Aspirin 81 Mg Chewable Tablet PO 81 mg DAILY WARD Administration Atorvastat
[2020-09-06 08:04] LABS: Glucose Point of Care 347 mg/dl (65-105)
[2020-09-06] MEDS: PANTOPRAZOLE 40 MG TABLET PO (08:18)
[2020-09-06] MEDS: FERROUS SULFATE 324 MG TABLET PO (08:18)
[2020-09-06] MEDS: CYANOCOBALAMIN 1,000 MCG TABLET 1000 MCG PO (08:18)
[2020-09-06] MEDS: ASPIRIN 81 MG CHEWABLE TABLET PO (08:18)
[2020-09-06] MEDS: MAGNESIUM OXIDE 400 MG TABLET PO (08:18)
[2020-09-06] MEDS: SODIUM BICARBONATE TAB 650 MG TABLET PO ×2 (08:18→17:05)
[2020-09-06] MEDS: CHOLECALCIFEROL 1,000 UNITS TABLET 1000 UNITS PO (08:18)
[2020-09-06] MEDS: TAMSULOSIN HCL 0.4 MG CAPSULE PO (08:19)
[2020-09-06] MEDS: ISOSORBIDE MONONITRATE 10 MG TABLET PO ×2 (08:19→17:05)
[2020-09-06] MEDS: INSULIN ASPART (*BKC) 100 UNITS/ML SUB-Q ×3 (09:26→18:10)
[2020-09-06 12:19] LABS: Glucose Point of Care 310 mg/dl (65-105)
[2020-09-06 16:29] LABS: Glucose Point of Care 235 mg/dl (65-105)
--- NOTE | 2020-09-06 16:53 | PC.NURSE ---
This patient, Jessica Wallace, was transferred to [ [id number]] on 09/06/20 at 1650. Personal belongings sent with patient. Report given to [ELIAS Aguilar @ [phone]]. Appropriate documentation sent with patient.
--- NOTE | 2020-09-06 17:16 | PM.IMPN ---
Progress Note: A&P Assessment and Plan (1) CHF exacerbation: Code(s): I50.9 - Heart failure, unspecified Status: Acute Assessment and Plan: Continue with IV Lasix. We will attempt to get the results of his echo from 3 months ago from the [facility]. The patient may benefit from Bumex versus Lasix considering his chronic renal failure. 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 Patient is on of fluid restrictions. He has 4+ pitting edema to lower extremities. The patient had been taken off of diuretics for brief period time due to his renal failure. Patient is now on a 2 g sodium diet. contineu [facility] iv dirueis. 09/06/20 17:16 Patient is 80-year-old male admitted with shortness of breath seen by cardiology suspect multifactorial with exacerbation of COPD as well as CHF decompensated, for COPD patient is treated with Solu-Medrol and updraft as well as inhaled steroid, congestive heart failure patient is being treated. To further evaluate teletype installer has ordered cardiac echo further recommendation to follow. 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 (2) Chronic respiratory failure with hypoxia: Code(s): J96.11 - Chronic respiratory failure with hypoxia Status: Chronic Assessment and Plan: The patient had been on oxygen at 2 L per nasal cannula at home and is now on a BiPAP. Please wean off the BiPAP when possible. (3) Chronic renal failure, stage 3 (moderate): Code(s): N18.30 - Chronic kidney disease, stage 3 unspecified Status: Acute Assessment and Plan: We can get records from [facility] however the patient stated that he is seeing a supercalender operator helper at [facility] we can try to get records from there. (4) Sleep apnea: Code(s): G47.30 - Sleep apnea, unspecified Status: Chronic Assessment and Plan: The patient no longer uses a CPAP machine. likely needs cpap at home. (5) CAD (coronary artery disease): Code(s): I25.10 - Atherosclerotic heart disease of [place] coronary artery without angina pectoris Status: Chronic Assessment and Plan: The patient has a history of 5 vessel CABG and a cardiac stent. Continue with aspirin and atorvastatin (6) COPD (chronic obstructive pulmonary disease): Code(s): J44.9 - Chronic obstructive pulmonary disease, unspecified Status: Chronic Assessment and Plan: Patient is currently on Solu-Medrol. He is currently on a BiPAP. Otherwise he wears oxygen at 2 L per nasal cannula. Continue with Symbicort. Continue with magnesium (7) Blindness of right eye: Code(s): H54.40 - Blindness, one eye, unspecified eye Status: Chronic Assessment and Plan: Patient is unsure of what happened in the right eye he has been to the eye doctor but is not fixable. His right pupil is bigger than the left. (8) BPH (benign prostatic hyperplasia): Code(s): N40.0 - Benign prostatic hyperplasia without lower urinary tract symptoms Status: Chronic Assessment and Plan: Continue with Flomax. (9) Chronic anemia: Code(s): D64.9 - Anemia, unspecified Status: Chronic Assessment and Plan: Continue to monitor. Patient has chronic renal failure so I suspect that the chronic anemia is secondary to his renal failure. The patient is on ferrous sulfate. He also takes B12. (10) DM2 (diabetes mellitus, type 2): Code(s): E11.9 - Type 2 diabetes mellitus without complications Status: Chronic Assessment and Plan: Accu-Cheks AC and HS. I did not restart his alogliptin as a side effect is listed as congestive heart failure. I did not continue with metformin as he has renal failure and I am not sure where his baseline levels are. Will do sliding scale insulin for now. Additional Plan 09/04/2020 Patient with acute exacerbation of CHF and worsening acute hypoxemic respiratory failure
--- NOTE | 2020-09-06 17:25 | PC.NURSE ---
This patient, Jessica Wallace, was received from IMU on 09/06/20 at 1645. Patient/family oriented to unit policies and routines
[2020-09-06 18:05] LABS: Glucose Point of Care 251 mg/dl (65-105)
[2020-09-06] MEDS: ATORVASTATIN 40 MG TABLET PO (21:29)
[2020-09-06 23:01] LABS: Glucose Point of Care 245 mg/dl (65-105)
[2020-09-07] VITALS (20 sets, daily range): BP systolic 115–130; BP diastolic 42–52; PULSE 60–99; RESP 18–22; TEMP 35.8–36.1; O2SAT 96–100
[2020-09-07] MEDS: ALBUTEROL SULFATE NEB 2.5 MG/0.5 ML INH 5 MG INHALATION ×4 (03:09→19:52)
[2020-09-07] MEDS: IPRATROPIUM BR 0.02% INH SOLN 0.5 MG/2.5 ML VIAL INHALATION ×4 (03:09→19:52)
[2020-09-07] MEDS: methylPREDNISolone SOD SUCC 125 MG VIAL 60 MG IV PUSH ×3 (05:29→21:22)
[2020-09-07] MEDS: FUROSEMIDE INJ 40 MG/4 ML VIAL IV PUSH ×2 (05:29→17:03)
[2020-09-07 08:29] LABS: Anion Gap 9 mmol/L (8-16); Blood Urea Nitrogen 39 mg/dL (9-20); Carbon Dioxide 32 mmol/L (22-30); Chloride 97 mmol/L (98-107); Estimated CRCL calculation 33 ml/min; Estimated Glomerular Filt Rate 42; Glucose 338 mg/dL (75-110); Potassium 3.8 mmol/L (3.4-5.0); Sodium 138 mmol/L (137-145)
[2020-09-07 08:59] LABS: Glucose Point of Care 290 mg/dl (65-105)
[2020-09-07] MEDS: INSULIN ASPART (*BKC) 100 UNITS/ML SUB-Q ×3 (09:22→17:55)
[2020-09-07] MEDS: CYANOCOBALAMIN 1,000 MCG TABLET 1000 MCG PO (09:24)
[2020-09-07] MEDS: SODIUM BICARBONATE TAB 650 MG TABLET PO ×2 (09:24→17:02)
[2020-09-07] MEDS: CHOLECALCIFEROL 1,000 UNITS TABLET 1000 UNITS PO (09:24)
[2020-09-07] MEDS: MAGNESIUM OXIDE 400 MG TABLET PO (09:24)
[2020-09-07] MEDS: ISOSORBIDE MONONITRATE 10 MG TABLET PO ×2 (09:24→17:03)
[2020-09-07] MEDS: FERROUS SULFATE 324 MG TABLET PO (09:24)
[2020-09-07] MEDS: ASPIRIN 81 MG CHEWABLE TABLET PO (09:25)
[2020-09-07] MEDS: PANTOPRAZOLE 40 MG TABLET PO (09:25)
[2020-09-07] MEDS: TAMSULOSIN HCL 0.4 MG CAPSULE PO (09:25)
--- NOTE | 2020-09-07 09:45 | PM.PNCARD ---
Progress Note: A&P Assessment and Plan (1) Acute respiratory failure with hypercapnia: Code(s): J96.02 - Acute respiratory failure with hypercapnia Status: Acute Assessment and Plan: Required bipap support on admission. Better now (2) CHF exacerbation: Code(s): I50.9 - Heart failure, unspecified Status: Acute Assessment and Plan: 2D echo reviewed. Normal LV function however dilated RV with evidence of elevated right sided filling pressures. Aortic prosthesis noted. Moderate aortic stenosis noted Continue IV diuresis. Creatinine stable ~ 1.6 Will start Metoprolol 25 mg daily (3) CAD (coronary artery disease): Code(s): I25.10 - Atherosclerotic heart disease of [place] coronary artery without angina pectoris Status: Chronic Assessment and Plan: status post coronary bypass surgery, and status post stent placement, he had 1 episode of chest pain with borderline elevated troponin, but no recurrence, will continue follow-up. (4) Chronic anemia: Code(s): D64.9 - Anemia, unspecified Status: Chronic Subjective Date/time seen: 09/07/20 09:45 He feels better and his lower ext edema has significantly improved Review of Systems Constitutional: Constitutional: Reports excessive sweating, Reports fatigue and Denies fever(s) Cardiovascular: Cardiovascular: Reports chest pain, Reports chest pain at rest, Reports chest pain with activity and Reports pedal edema Respiratory: Respiratory: Reports chest congestion and Reports cough Endocrine: Endocrine: Reports excessive sweating and Reports fatigue Exam Narrative: Exam Narrative: Awake alert oriented x3 not in acute distress Neck is supple no obvious JVD, no carotid bruit Chest: decreased breathing sound with significant wheezing noted bilaterally Cardiovascular: Regular rate and rhythm, 2/6 systolic murmur noted left sternal border Abdomen: Soft nontender bowel sounds positive Extremities: +2 edema, he has decreased pulses distally bilaterally Objective Data Vital Signs Vital Signs: Vital Signs - 24 hr 09/06/20 10:00 09/06/20 10:06 09/06/20 10:08 Temperature Pulse Rate 89 79 Respiratory Rate 18 Blood Pressure Pulse Oximetry 97 09/06/20 10:16 09/06/20 12:00 09/06/20 14:37 Temperature 35.6 C L Pulse Rate 80 118 H 83 Respiratory Rate 18 20 18 Blood Pressure 123/58 L Pulse Oximetry 100 09/06/20 14:46 09/06/20 16:00 09/06/20 16:10 Temperature 35.7 C L Pulse Rate 89 108 H 105 H Respiratory Rate 18 18 Blood Pressure 112/63 Pulse Oximetry 100 09/06/20 20:00 09/06/20 20:18 09/06/20 20:30 Temperature Pulse Rate 109 H 83 87 Respiratory Rate 20 18 19 Blood Pressure Pulse Oximetry 100 99 09/06/20 20:40 09/06/20 22:15 09/07/20 00:00 Temperature 36.1 C L Pulse Rate 86 94 94 Respiratory Rate 20 20 Blood Pressure 125/58 L Pulse Oximetry 100 99 09/07/20 03:08 09/07/20 03:10 09/07/20 03:18 Temperature Pulse Rate 66 66 70 Respiratory Rate 19 19 19 Blood Pressure Pulse Oximetry 99 09/07/20 04:00 09/07/20 05:14 Temperature 36.1 C L Pulse Rate 78 99 Respiratory Rate 20 Blood Pressure 130/52 L Pulse Oximetry 96 Intake/Output Intake/Output: Intake & Output 09/04/20 09/05/20 09/06/20 09/07/20 23:59 23:59 23:59 23:59 Intake Total 7034 794 6851 120 Output Total 1350 1600 2350 1600 Balance 149 -[phone] -4705 -0882 Meds/Results Medications: Active Medications Generic Name Dose Route Start Last Admin Trade Name Freq PRN Reason Stop Dose Admin Albuterol 5 mg 09/03/20 14:00 09/07/20 03:09 Albuterol Sulfate Neb 2.5 Mg/0.5 Ml Inh INHALATION 5 mg Q6HRT WARD Administration Aspirin 81 mg 09/04/20 09:00 09/07/20 09:25 Aspirin 81 Mg Chewable Tablet PO 81 mg DAILY WARD Administration Atorvastatin Calcium 40 mg 09/03/20 21:00 09/06/20 21:29 Atorvastatin 40 Mg Tablet PO 40 mg HS WARD Admin
[2020-09-07] MEDS: METOPROLOL SUCCINATE EXT REL 25 MG TABCR PO (10:46)
--- NOTE | 2020-09-07 11:59 | PM.IMPN ---
Progress Note: A&P Assessment and Plan (1) CHF exacerbation: Code(s): I50.9 - Heart failure, unspecified Status: Acute Assessment and Plan: Continue with IV Lasix. We will attempt to get the results of his echo from 3 months ago from the [facility]. The patient may benefit from Bumex versus Lasix considering his chronic renal failure. 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 Patient is on of fluid restrictions. He has 4+ pitting edema to lower extremities. The patient had been taken off of diuretics for brief period time due to his renal failure. Patient is now on a 2 [address] [facility] iv dirueis. 09/07/20 11:59 09/06 Patient is 80-year-old male admitted with shortness of breath seen by cardiology suspect multifactorial with exacerbation of COPD as well as CHF decompensated, for COPD patient is treated with Solu-Medrol and updraft as well as inhaled steroid, congestive heart failure patient is being treated. To further evaluate repairer wood furniture has ordered cardiac echo further recommendation to follow. 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 09/07 today patient states feeling much better not as short of breath, had a cardiac echo showed preserved LV function however does have a dilated RV and moderate aortic stenosis, patient was seen by Cardiology recommending to continue to diurese the patient follow and added metoprolol 25 mg q.day will continue to monitor will have a PT OT evaluate the patient and further recommendation to follow. (2) Chronic respiratory failure with hypoxia: Code(s): J96.11 - Chronic respiratory failure with hypoxia Status: Chronic Assessment and Plan: The patient had been on oxygen at 2 L per nasal cannula at home and is now on a BiPAP. Please wean off the BiPAP when possible. (3) Chronic renal failure, stage 3 (moderate): Code(s): N18.30 - Chronic kidney disease, stage 3 unspecified Status: Acute Assessment and Plan: We can get records from [facility] however the patient stated that he is seeing a mule packer at [facility] we can try to get records from there. (4) Sleep apnea: Code(s): G47.30 - Sleep apnea, unspecified Status: Chronic Assessment and Plan: The patient no longer uses a CPAP machine. likely needs cpap at home. (5) CAD (coronary artery disease): Code(s): I25.10 - Atherosclerotic heart disease of [place] coronary artery without angina pectoris Status: Chronic Assessment and Plan: The patient has a history of 5 vessel CABG and a cardiac stent. Continue with aspirin and atorvastatin (6) COPD (chronic obstructive pulmonary disease): Code(s): J44.9 - Chronic obstructive pulmonary disease, unspecified Status: Chronic Assessment and Plan: Patient is currently on Solu-Medrol. He is currently on a BiPAP. Otherwise he wears oxygen at 2 L per nasal cannula. Continue with Symbicort. Continue with magnesium (7) Blindness of right eye: Code(s): H54.40 - Blindness, one eye, unspecified eye Status: Chronic Assessment and Plan: Patient is unsure of what happened in the right eye he has been to the eye doctor but is not fixable. His right pupil is bigger than the left. (8) BPH (benign prostatic hyperplasia): Code(s): N40.0 - Benign prostatic hyperplasia without lower urinary tract symptoms Status: Chronic Assessment and Plan: Continue with Flomax. (9) Chronic anemia: Code(s): D64.9 - Anemia, unspecified Status: Chronic Assessment and Plan: Continue to monitor. Patient has chronic renal failure so I suspect that the chronic anemia is secondary to his renal failure. The patient is on ferrous sulfate. He also takes B12. (10) DM2 (diabetes mellitus, type 2): Code(s): E11.9 - Type 2 diabetes mellitus without complications Status: Chronic
[2020-09-07 12:34] LABS: Glucose Point of Care 374 mg/dl (65-105)
[2020-09-07 18:06] LABS: Glucose Point of Care 358 mg/dl (65-105)
[2020-09-07] MEDS: ATORVASTATIN 40 MG TABLET PO (21:22)
[2020-09-07 22:15] LABS: Glucose Point of Care 332 mg/dl (65-105)
[2020-09-08] VITALS (16 sets, daily range): BP systolic 112–126; BP diastolic 47–54; PULSE 60–72; RESP 16–20; TEMP 36.4–36.6; O2SAT 91–100
[2020-09-08] MEDS: ALBUTEROL SULFATE NEB 2.5 MG/0.5 ML INH 5 MG INHALATION ×3 (02:25→14:02)
[2020-09-08] MEDS: IPRATROPIUM BR 0.02% INH SOLN 0.5 MG/2.5 ML VIAL INHALATION ×3 (02:25→14:03)
[2020-09-08] MEDS: FUROSEMIDE INJ 40 MG/4 ML VIAL IV PUSH (05:22)
[2020-09-08] MEDS: methylPREDNISolone SOD SUCC 125 MG VIAL 60 MG IV PUSH (05:22)
[2020-09-08 05:48] LABS: Hematocrit 25.4 % (42.0-52.0); Mean Corpuscular HGB Conc 31.5 g/dl (32-36); Mean Corpuscular Hemoglobin 32.3 pg (26-34); Mean Corpuscular Volume 102.4 fl (80-100); Mean Platelet Volume 10.1 fl (7.4-10.4); Platelet Count Result 136 k/mm3 (150-375); Red Blood Count 2.48 M/mm3 (4.6-6.20); Red Cell Distribution Width 15.2 % (11.5-14.5); White Blood Count 4.8 K/mm3 (4.5-10.0)
[2020-09-08 05:56] LABS: Anion Gap 6 mmol/L (8-16); Blood Urea Nitrogen 47 mg/dL (9-20); Carbon Dioxide 35 mmol/L (22-30); Chloride 96 mmol/L (98-107); Estimated CRCL calculation 33 ml/min; Estimated Glomerular Filt Rate 42; Glucose 348 mg/dL (75-110); Potassium 3.8 mmol/L (3.4-5.0); Sodium 137 mmol/L (137-145)
[2020-09-08 08:09] LABS: Glucose Point of Care 340 mg/dl (65-105)
[2020-09-08] MEDS: TAMSULOSIN HCL 0.4 MG CAPSULE PO (08:19)
[2020-09-08] MEDS: PANTOPRAZOLE 40 MG TABLET PO (08:19)
[2020-09-08] MEDS: INSULIN ASPART (*BKC) 100 UNITS/ML SUB-Q (08:19)
[2020-09-08] MEDS: CHOLECALCIFEROL 1,000 UNITS TABLET 1000 UNITS PO (08:19)
[2020-09-08] MEDS: SODIUM BICARBONATE TAB 650 MG TABLET PO (08:19)
[2020-09-08] MEDS: ASPIRIN 81 MG CHEWABLE TABLET PO (08:20)
[2020-09-08] MEDS: METOPROLOL SUCCINATE EXT REL 25 MG TABCR PO (08:20)
[2020-09-08] MEDS: CYANOCOBALAMIN 1,000 MCG TABLET 1000 MCG PO (08:21)
[2020-09-08] MEDS: ISOSORBIDE MONONITRATE 10 MG TABLET PO (08:21)
[2020-09-08] MEDS: MAGNESIUM OXIDE 400 MG TABLET PO (08:21)
[2020-09-08] MEDS: FERROUS SULFATE 324 MG TABLET PO (08:21)
--- NOTE | 2020-09-08 09:02 | PM.PNCARD ---
Progress Note: A&P Assessment and Plan (1) CHF exacerbation: Code(s): I50.9 - Heart failure, unspecified Status: Acute Assessment and Plan: 2D echo reviewed. Normal LV function however dilated RV with evidence of elevated right sided filling pressures. Aortic prosthesis noted. Calcified mitral valve with Moderate mitral stenosis noted He is better compensated from CHF standpoint and creatinine remained stable around 1.6 with effective diuresis Will switch loop diuretics to PO. Would discharge on Bumex 1 mg BID and Metolazone 2.5 mg twice a week Started Metoprolol 25 mg daily this admission Follow up with primary academic support coordinator at the [facility] (2) Acute respiratory failure with hypercapnia: Code(s): J96.02 - Acute respiratory failure with hypercapnia Status: Acute Assessment and Plan: Required bipap support on admission. Better now (3) CAD (coronary artery disease): Code(s): I25.10 - Atherosclerotic heart disease of [place] coronary artery without angina pectoris Status: Chronic Assessment and Plan: status post coronary bypass surgery Borderline elevated troponin earlier on admission likely from increase demand from resp failure No chest pain or ischemic changes on EKG Continue maximal medical therapy (4) Chronic anemia: Code(s): D64.9 - Anemia, unspecified Status: Chronic Subjective Date/time seen: 09/08/20 09:02 He feels better and would like to go home if possible Review of Systems Constitutional: Constitutional: Reports excessive sweating, Reports fatigue and Denies fever(s) Cardiovascular: Cardiovascular: Reports chest pain, Reports chest pain at rest, Reports chest pain with activity and Reports pedal edema Respiratory: Respiratory: Reports chest congestion and Reports cough Endocrine: Endocrine: Reports excessive sweating and Reports fatigue Exam Narrative: Exam Narrative: Awake alert oriented x3 not in acute distress Neck is supple no obvious JVD, no carotid bruit Chest: decreased breathing sound with significant wheezing noted bilaterally Cardiovascular: Regular rate and rhythm, 2/6 systolic murmur noted left sternal border Abdomen: Soft nontender bowel sounds positive Extremities: +2 edema, he has decreased pulses distally bilaterally Objective Data Vital Signs Vital Signs: Vital Signs - 24 hr 09/07/20 10:02 09/07/20 12:00 09/07/20 14:00 Temperature 35.8 C L Pulse Rate 60 60 Respiratory Rate 18 Blood Pressure 115/42 L Pulse Oximetry 96 100 09/07/20 14:25 09/07/20 14:35 09/07/20 16:00 Temperature Pulse Rate 72 77 60 Respiratory Rate 18 18 Blood Pressure Pulse Oximetry 09/07/20 19:55 09/07/20 20:00 09/07/20 20:06 Temperature Pulse Rate 60 60 61 Respiratory Rate 20 18 Blood Pressure Pulse Oximetry 100 100 09/07/20 20:08 09/07/20 23:27 09/08/20 00:00 Temperature 36.1 C L Pulse Rate 62 64 64 Respiratory Rate 18 22 H Blood Pressure 124/49 L Pulse Oximetry 100 99 09/08/20 02:25 09/08/20 02:26 09/08/20 02:33 Temperature Pulse Rate 68 68 64 Respiratory Rate 17 17 18 Blood Pressure Pulse Oximetry 97 09/08/20 04:00 09/08/20 05:21 09/08/20 08:20 Temperature 36.6 C Pulse Rate 62 71 62 Respiratory Rate 20 Blood Pressure 112/54 L Pulse Oximetry 99 09/08/20 08:44 09/08/20 08:46 09/08/20 08:52 Temperature Pulse Rate 70 72 Respiratory Rate 16 16 Blood Pressure Pulse Oximetry 91 Intake/Output Intake/Output: Intake & Output 09/05/20 09/06/20 09/07/20 09/08/20 23:59 23:59 23:59 23:59 Intake Total 720 1090 840 120 Output Total 1600 2350 2750 900 [facility] -130 [phone] -780 Meds/Results Medications: Active Medications Generic Name Dose Route Start Last Admin Trade Name Freq PRN Reason Stop Dose Admin Albuterol 5 mg 09/03/20 14:00 09/08/20 08:43 Albuterol Sulfate Neb 2.5 Mg/0.5 Ml Inh INHALATION 5 mg
--- NOTE | 2020-09-08 09:44 | PM.DS ---
DS: Admitting Diagnosis Admitting Diagnosis Admitting Diagnosis: Chief Complaint: Shortness of breath DS: Discharge Diagnosis Discharge Diagnosis (1) CHF exacerbation: Code(s): I50.9 - Heart failure, unspecified Status: Acute Assessment and Plan: Continue with IV Lasix. We will attempt to get the results of his echo from 3 months ago from the [facility]. The patient may benefit from Bumex versus Lasix considering his chronic renal failure. 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 Patient is on of fluid restrictions. He has 4+ pitting edema to lower extremities. The patient had been taken off of diuretics for brief period time due to his renal failure. Patient is now on a 2 g sodium diet. [facility] iv dirueis. 09/07/20 11:59 09/06 Patient is 80-year-old male admitted with shortness of breath seen by cardiology suspect multifactorial with exacerbation of COPD as well as CHF decompensated, for COPD patient is treated with Solu-Medrol and updraft as well as inhaled steroid, congestive heart failure patient is being treated. To further evaluate lighting fixtures decorator has ordered cardiac echo further recommendation to follow. 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 09/07 today patient states feeling much better not as short of breath, had a cardiac echo showed preserved LV function however does have a dilated RV and moderate aortic stenosis, patient was seen by Cardiology recommending to continue to diurese the patient follow and added metoprolol 25 mg q.day will continue to monitor will have a PT OT evaluate the patient and further recommendation to follow. (2) Chronic respiratory failure with hypoxia: Code(s): J96.11 - Chronic respiratory failure with hypoxia Status: Chronic Assessment and Plan: The patient had been on oxygen at 2 L per nasal cannula at home and is now on a BiPAP. Please wean off the BiPAP when possible. (3) Chronic renal failure, stage 3 (moderate): Code(s): N18.30 - Chronic kidney disease, stage 3 unspecified Status: Acute Assessment and Plan: We can get records from [facility] however the patient stated that he is seeing a certified lactation educator at [facility] we can try to get records from there. (4) Sleep apnea: Code(s): G47.30 - Sleep apnea, unspecified Status: Chronic Assessment and Plan: The patient no longer uses a CPAP machine. likely needs cpap at home. (5) CAD (coronary artery disease): Code(s): I25.10 - Atherosclerotic heart disease of [place] coronary artery without angina pectoris Status: Chronic Assessment and Plan: The patient has a history of 5 vessel CABG and a cardiac stent. Continue with aspirin and atorvastatin (6) COPD (chronic obstructive pulmonary disease): Code(s): J44.9 - Chronic obstructive pulmonary disease, unspecified Status: Chronic Assessment and Plan: Patient is currently on Solu-Medrol. He is currently on a BiPAP. Otherwise he wears oxygen at 2 L per nasal cannula. Continue with Symbicort. Continue with magnesium (7) Blindness of right eye: Code(s): H54.40 - Blindness, one eye, unspecified eye Status: Chronic Assessment and Plan: Patient is unsure of what happened in the right eye he has been to the eye doctor but is not fixable. His right pupil is bigger than the left. (8) BPH (benign prostatic hyperplasia): Code(s): N40.0 - Benign prostatic hyperplasia without lower urinary tract symptoms Status: Chronic Assessment and Plan: Continue with Flomax. (9) Chronic anemia: Code(s): D64.9 - Anemia, unspecified Status: Chronic Assessment and Plan: Continue to monitor. Patient has chronic renal failure so I suspect that the chronic anemia is secondary to his renal failure. The patient is on ferrous sulfate. He also takes B12. (10) DM2 (diabetes latha
--- NOTE | 2020-09-08 10:10 | PCPTNOTE ---
Attempted to see patient for PT this date, however patient declined due to anticipated discharge.
[2020-09-08 11:31] LABS: Glucose Point of Care 433 mg/dl (65-105)
[2020-09-08] MEDS: metOLazone 2.5 MG TABLET PO (12:37)
[2020-09-08] MEDS: INSULIN ASPART (*BKC) 100 UNITS/ML 10 UNITS SUB-Q ×2 (12:37→14:52)
[2020-09-08] MEDS: INSULIN GLARGINE (*BKC) 100 UNITS/ML 10 UNITS SUB-Q (12:37)
--- NOTE | 2020-09-08 13:39 | PCPTNOTE ---
Patient declined PT this afternoon due to expected discharge.
[2020-09-08 14:24] LABS: Glucose Point of Care 414 mg/dl (65-105)
[2020-09-08] MEDS: INSULIN GLARGINE (*BKC) 100 UNITS/ML 20 UNITS SUB-Q (14:52)
[2020-09-08 16:41] LABS: Glucose Point of Care 322 mg/dl (65-105)
== END 2020-09-08 17:37 | disposition home or self-care (01) | DRG 291 ==
LOC: ANHED 11:19 → ANHIMU 12:43 → ANH2MED 09-08 09:44 → ANHIMU 09-09 15:57
PROVIDERS: Family Medicine; Internal Medicine; Nurse Practitioner; Specialist; Admitting Provider Hospitalist; Emergency Provider General Practice; Visit Provider Internal Medicine
DX: I13.0 Hypertensive heart and chronic kidney disease with heart failure and stage 1 through stage 4 chronic kidney disease, or unspecified chronic kidney disease (principal); J96.21 Acute and chronic respiratory failure with hypoxia; J96.22 Acute and chronic respiratory failure with hypercapnia; Z94.0 Kidney transplant status; J44.1 Chronic obstructive pulmonary disease with (acute) exacerbation; I50.9 Heart failure, unspecified; N18.30 Chronic kidney disease, stage 3 unspecified; E11.22 Type 2 diabetes mellitus with diabetic chronic kidney disease; J44.9 Chronic obstructive pulmonary disease, unspecified; D64.9 Anemia, unspecified; N40.0 Benign prostatic hyperplasia without lower urinary tract symptoms; R07.9 Chest pain, unspecified; I25.10 Atherosclerotic heart disease of native coronary artery without angina pectoris
CPT/HCPCS: 36415; 36600; 71045; 80048; 80053; 80061; 82375; 82805; 82948; 83036; 83050; 83735; 83880; 84100; 84443; 84484; 85025; 85027; 85610; 85730; 86850; 86900; 86901; 93005; 93306; 94002; 94003; 94640; 96374; 96375; 97110; 97161; 97165; 99285; A9270; J1815; J1940; J2930; J3475

== ENCOUNTER 2024-03-10 03:21 | Emergency (ER) | payer MEDICARE, OTHER, SELFPAY | END 2024-03-10 09:09 | disposition left against medical advice (07) | LOC: ANHED 09:08 | DX: Z53.21 Procedure and treatment not carried out due to patient leaving prior to being seen by health care provider (principal) | CPT/HCPCS: 99199 ==

== ENCOUNTER 2024-06-09 08:14 | Inpatient (IN) | payer MEDICARE, OTHER, SELFPAY ==
[2024-06-09] VITALS (25 sets, daily range): BP systolic 106–131; BP diastolic 47–73; PULSE 59–123; RESP 18–27; TEMP 36.1–36.6; O2SAT 98–100; BMI 28.8
--- NOTE | ~2024-06-09 | XR_ITS ---
EXAMINATION: XR chest 2V DATE: 06/09/2024 09:12 INDICATION: Shortness of breath. TECHNIQUE: Frontal and lateral views of the chest were obtained. COMPARISON: Chest single view 09/03/2020 FINDINGS: There are airspace opacities in the mid and lower lung zones. There are small pleural effus ions. No pneumothorax. Cardiomegaly is noted. There are changes of heart valve replacement and rivas ry artery bypass grafting. There is a left chest pacer with leads in right atrium and coronary sinus. IMPRESSION: 1. Airspace opacities in the mid and lower lung zones, consistent with atelectasis versus pneumonia. 2. Small pleural effusions. 3. Cardiomegaly. Reviewed, dictated and finalized at location B. IMPRESSION: 1. Airspace opacities in the mid and lower lung zones, consistent with atelecta sis versus pneumonia. 2. Small pleural effusions. 3. Cardiomegaly.
--- NOTE | 2024-06-09 08:14 | ECG_ITS ---
Test Date: 2024-06-09 08:18:42 Measurements Intervals [place] Rate: 73 P: 0 [place]: 0 QRS: 221 QRSD: 167 T: 51 QT: 446 QTc: 492 Interpretive Statements ELECTRONIC VENTRICULAR PACEMAKER No previous ECG available for comparison Electronically Signed On 06-09-2024 14:53:40 CDT by Sebastien Schmidt M.D.
[2024-06-09 08:58] LABS: Basophils Percent Auto 0.2 % (0.2-1.2); Eosinophils Percent Auto 0.7 % (0-4.4); Hematocrit 34.6 % (42.0-52.0); Hemoglobin 10.6 g/dL (14.0-18.0); Immature Granulocyte Absolute 0.01 K/mm3 (0.00-0.031); Immature Granulocyte Percent A 0.2 % (0-0.5); Lymphocytes Percent Auto 7.4 % (18.3-44.2); Mean Corpuscular HGB Conc 30.6 g/dl (32-36); Mean Corpuscular Hemoglobin 30.7 pg (26-34); Mean Corpuscular Volume 100.3 fl (80-100); Mean Platelet Volume 10.1 fl (7.4-10.4); Monocytes Absolute Auto 0.2 K/mm3 (0.1-0.6); Monocytes Percent Auto 4.5 % (2.6-8.5); Neutrophils Absolute Auto 4.7 K/mm3 (1.3-6.7); Platelet Count Result 116 k/mm3 (150-375); Red Blood Count 3.45 M/mm3 (4.6-6.20); Red Cell Distribution Width 14.7 % (11.5-14.5); White Blood Count 5.4 K/mm3 (4.5-10.0)
[2024-06-09 09:09] LABS: Alanine Aminotransferase 14 U/L (6-50); Albumin Level 4.2 g/dL (3.5-5.1); Alkaline Phosphatase 69 U/L (38-126); Anion Gap 11 mmol/L (4-12); Aspartate Amino Transferase 20 U/L (17-59); Bilirubin,Total 0.9 mg/dL (0.2-1.3); Blood Urea Nitrogen 98 mg/dL (9-20); Calcium 8.7 mg/dL (8.4-10.2); Carbon Dioxide 28 mmol/L (22-30); Chloride 96 mmol/L (98-107); Estimated CRCL calculation 28 ml/min; Estimated Glomerular Filt Rate 33; Glucose 227 mg/dL (65-110); Potassium 5.1 mmol/L (3.4-5.0); Sodium 135 mmol/L (137-145)
[2024-06-09 09:14] LABS: INR 1.2; Prothrombin Time 15.4 Seconds (11.1-14.7)
[2024-06-09 09:15] LABS: Partial Thromboplastin Time 27.4 Seconds (22.3-36.8)
[2024-06-09 09:22] LABS: NT Pro B Type Natriuretic Pept > 30000 pg/mL (19.9-100); Troponin I 0.085 ng/mL (0.000-0.034)
--- OUTSIDE RECORDS SUMMARY | 2024-06-09 10:03 | XMS_ITS | Clinical Summary ---
Author Organization [facility] Address [address] [place] [address] Care Team Providers Care Civil Engineering Teacher Name Role Phone Rafat Nunez MD Primary Care Provider [phone] Source Comments [facility],non-[facility] Affiliates and Associated Physician Practices is amultiple site organization consisting of ambulatory clinics and hospital sitesin [place], [place], [place] and [place]. This disclosure is being madepursuant to the Care Everywhere program and may not contain all information available regarding this patient. Last updated 17.[facility] Allergies Active Allergy Reactions Criticality Noted Date Comments Latex Unknown 11/15/2020 Lisinopril Unknown 11/15/2020 Medications * Be aware that medications may not be up to date on this document. Alwaysverify current medications with the patient. Medication Sig Dispensed Refills Start Date End Date Status albuterol-ipratropium (DUO-NEB) 0.5-2.5 (3) MG/3ML nebulizer solution Inhale 3 mL by mouth 4 times daily Active aspirin (ASPIRIN) 81 MG chew tablet Take 81 mg by mouth once daily Active atorvastatin (LIPITOR) 40 MG tablet Take 40 mg by mouth at bedtime Active furosemide (LASIX) 20 MG tablet Take 20 mg by mouth once daily Active isosorbide mononitrate CR 24hr (IMDUR) 60 MG tablet Take 60 mg by mouth once daily Active metoprolol tartrate (LOPRESSOR) 50 MG tablet Take 50 mg by mouth once daily Active mometasone (ASMANEX) 220 MCG/INH inhaler Inhale 1 puff by mouth at bedtime Active Immunizations Name Administration Dates Next Due Sharmin [facility] primary monoval ent 12+ yr 0.3mL Purple cap 05/20/2020,04/29/2020 Social History Tobacco Use Types Packs/Day Years Used Date Smoking Tobacco: Former Cigarettes Q uit: 11/15/1982 Smokeless Tobacco: Never Alcohol Use Standard Drinks/Week Comments Not Currently 0 (1 standard drink = 0.6 oz pur e alcohol) occasional drink Sex and Gender Information Value Date Recorded Sex Assigned at Not on file Gender Identity Not on file Sexual Orientation Not on file Last Filed Vital Signs Vital Sign Reading Time Taken Comments Blood Pressure 116/57 11/16/2020 1:27 PM CDT Pulse 60 11/16/2020 1:27 PM CDT Temperature 36.4 C (97.5 F) 11/16/2020 11:06 AM CDT Respiratory Rate 9 11/16/2020 1:27 PM CDT Oxygen Saturation 98% 11/16/2020 1:27 PM CDT Inhaled Oxygen Concentration - - Weight 95 kg (209 lb 8 oz) 11/16/2020 11:06 AM C DT Height 172.7 cm (5' 8 ) 11/16/2020 11:06 AM CDT Body Mass Index 31.85 11/16/2020 11:06 AM CDT Plan of Treatment Health Maintenance Due Date Last Done Comments MEDICARE AWV 12 MONTHS 1940 DTAP/TDAP/TD VACCINES (1 - Tdap) 1961 PNEUMOCOCCAL VACCINE 50+ (1 of 1 - PCV) 1992 ZOSTER VACCINE (1 of 2) 1992 Respiratory Syncytial Virus (RSV) Vaccine Pt: or over 60 yrs (1 - 1-dose 75+ series) 2017 COVID-19 VACCINE (3 - 2023-2 5 season) 2023 05/20/2020, 04/29/2020 INFLUENZA VACCINE (#1) 2023 DEPRESSION SCREENING 04/01/2024 HEPATITIS B VACCINE Aged Out No longe r eligible based on patient's age to complete this topic HIB VACCINE Aged Out No longer eligi ble based on patient's age to complete this topic HPV VACCINE Aged Out No longer eligi ble based on patient's age to complete this topic MENINGOCOCCAL (Group B) VACCINE Aged Out No longer eligible b ased on patient's age to complete this topic MENINGOCOCCAL VACCINE Aged Out No zenaida etelvina eligible based on patient's age to complete this topic Care Teams Civil Engineering Teacher Relationship Specialty Start Date End Date Rafat Nunez MD [address] OF [facility] [place] [id number] PCP - General 08/11/20
--- OUTSIDE RECORDS SUMMARY | 2024-06-09 10:03 | XMS_ITS | Patient Health Summary ---
Author Organization [facility] Address [address] [place] [address] Care Team Providers Care Skates Operator Name Role Phone Rafat Nunez MD Primary Care Provider [phone] [phone] Note from [facility],non-owned Affiliates and Associated Physician Practices is amultiple site organization consisting of ambulatory clinics and hospital sitesin [place], [place], [place]. This disclosure is being madepursuant to the Care Everywhere program and may not contain all information available regarding this patient. Last updated 17.[facility] Allergies * Latex(Unknown) * Lisinopril(Unknown) Medications * Be aware that medications may not be up to date on this document. Alwaysverify current medications with the patient. * albuterol-ipratropium (DUO-NEB) 0.5-2.5 (3) MG/3ML nebulizer solution Inhale 3 mL by mouth 4 times daily * aspirin (ASPIRIN) 81 MG chew tablet Take 81 mg by mouth once daily * atorvastatin (LIPITOR) 40 MG tablet Take 40 mg by mouth at bedtime * furosemide (LASIX) 20 MG tablet Take 20 mg by mouth once daily * isosorbide mononitrate CR 24hr (IMDUR) 60 MG tablet Take 60 mg by mouth once daily * metoprolol tartrate (LOPRESSOR) 50 MG tablet Take 50 mg by mouth once daily * mometasone (ASMANEX) 220 MCG/INH inhaler Inhale 1 puff by mouth at bedtime Immunizations * Covid Pfizer primary monovalent 12+ yr 0.3mL Purple cap(Given 05/20/2020, 04/29/2020) Social History Tobacco Use Types Packs/Day Years [...] Mass Index 31.85 11/16/2020 11:06 AM CDT Procedures * PATHOLOGY TISSUE(Performed 11/16/2020) Performed for Adenoma of sigmoid colon * ID COLONOSCOPY, DIAGNOSTIC(Performed 11/16/2020) Performed for Adenoma of sigmoid colon * GLUCOSE - POINT OF CARE(Performed 11/16/2020) * ENDOSCOPY, COLON, DIAGNOSTIC(Performed 11/16/2020) Results * PATHOLOGY TISSUE (11/16/2020 12:29 PM CDT) Case Report Surgical Pathology Report Case: [id number] Authorizing Provider: Art Mello, Collected: 11/16/2020 12:29 PM Ordering Location: [facility] Received: 11/16/2020 01:44 PM Pathologist: Christiane Blanco MD Specimen: Polyp Sigmoid, sigmoid colon polyp 11/17/2020 2:51 PM CDT [facility] Final Diagnosis Large intestine, sigmoid colon polyp, biopsy (A): - Superficial fragments of tubulovillous adenoma - See comment 11/17/2020 2:51 PM CDT [facility] Microscopic Description and Comment Sections show adenoma with some tubular areas and other more elongate villiform areas. Given the entirely superficial nature of the sampling, a deeper (unsampled) invasive component cannot be excluded. 11/17/2020 2:51 PM CDT [facility] Clinical History The patient is a 80-year-old man referred to [facility] for possible endomucosal resection of a sigmoid colon polyp. Operative procedure/findings: flexible sigmoidoscopy - 7 cm polypoid lesion in proximal sigmoid, too large for EMR, biopsied. 11/17/2020 2:51 PM CDT [facility] Gross Description The requisition and specimen(s) are identified with the patient's name Jessica Wallace. Received in formalin, specimen A , are 4 fragments of light pink mucosal tissues 0.1-1.5 cm in greatest dimension and 2.7 x 1.5 x 0.7 cm in aggregate. The margin of the largest fragment is inked black, and and sectioned showing abad cut surfaces. Entirely submitted as follows: A1-smaller fragments, A2-larger fragment sectioned. DF 11/17/2020 2:51 PM CDT [facility] Disclaimer The performance characteristics of all immunohistochemical and indirect immunofluorescence stains (if any) cited in this report were determined by the Histopathology Laboratory of [facility]. Some of these tests were developed by our own laboratory and have not been cleared or approved by the US Food and Drug Administration. The FDA does not require this test to go through premarket FDA review. These tests are used for clinical purposes. They should not be regarded as investigational or for research. This laboratory is certified under the Clinical Laboratory Improvement Amendments (CLIA) as qualified to perform high complexity clinical laboratory testing. This case has been personally reviewed and interpreted by the attending (teaching) pathologist. 11/17/2020 2:51 PM CDT [facility] Embedded Images 11/17/2020 2:51 PM CDT [facility] Biopsy, NOS POLYP OF SIGMOID COLON / Unknown 11/16/2020 12:29 PM CDT 11/16/2020 1:44 PM CDT Comment:Pre-op diagnosis: Adenoma of sigmoid colon [D12.5] Art Muro MD LAB - PATHOL OGY/CYTOLOGY ORDERABLES [facility] [address] [place], [place] [address] [phone] * GLUCOSE - POINT OF CARE (11/16/2020 11:15 AM CDT) Glucose WB/POC 115 70 - 115 mg/dL 11/16/2020 11:19 AM CDT [facility] Specimen Type Cap Fingerstick 2020 11:19 AM CDT [facility] Blood BLOOD SPECIMEN / Unknown 11/16/2020 11:15 AM CDT 11/16/2020 11:19 AM CDT Art Muro MD LAB - POINT OF CARE ORDERABLES [facility] [address] [place] [address], [facility] [phone] * ENDOSCOPY, COLON, DIAGNOSTIC (11/16/2020 7:59 AM CDT) Report Endoscopy POC Endoscopy Department Report _ Patient Name: Jessica Self Procedure Date: 11/16/2020 7:59 AM Date of : 1940 Classification: Outpatient Gender: Male Ethnicity: Not or Race: White _ Providers: Art Muro MD Referring MD: [facility] Juvencio Mariano MD; Zulma Valdez MD Procedure: Flexible Sigmoidoscopy Indications: Therapeutic procedure for colon polyps Medications: See the Anesthesia note for documentation of the administered medications Patient Profile: 80M referred for Colonoscopy w/ possible EMR of large TVA in [place]. Description of Procedure: Pre-Anesthesia Assessment:Prior to the procedure, a History and Physical was performed, and patient medications and allergies were reviewed. The patient's tolerance of previous anesthesia was also reviewed. The risks and benefits of the procedure and the sedation options and risks were discussed with the patient. All questions were answered, and informed consent was obtained. Prior Anticoagulants: The patient has taken no previous anticoagulant or antiplatelet agents. ASA Grade Assessment: III - A patient with severe systemic disease. After reviewing the risks and benefits, the patient was deemed in satisfactory condition to undergo the procedure. After obtaining informed consent, the endoscope was passed under direct vision. Throughout the procedure, the patient's blood pressure, pulse, and oxygen saturations were monitored continuously.The flexible sigmoidoscopy was accomplished without difficulty. The patient tolerated the procedure well. The PCF-[id number] was introduced through the anus and advanced to the sigmoid colon. The quality of the bowel preparation was adequate. Findings: A very large heterogenous polypoid lesion was identified in the proximal sigmoid colon adjacent to a prior tattoo site. The lesion measured approximately 7 cm in cross-sectional diameter, involved 2/3 of the luminal circumference, and was partially obstructing. The lesion was Sayda classification Is + 2a + 2b. It demonstrated friability and spontaneous oozing of blood. Attempts at endoscopic mucosal resection via injection of Eleview into the submucosal space demonstrated inadequate lift for safe and complete resection. A sample of the lesion was sent for histology after snare resection of a small lesion fragment during attempted EMR. Estimated Blood Loss: Estimated blood loss was minimal. Complications: No immediate complications. Impression: - Large (~7 cm in diameter, 2/3 of luminal circumference) partially obstructing Sayda Is + 2a + 2b lesion with spontaneous oozing of blood in the proximal sigmoid colon adjacent to a prior tattoo site. Findings not amenable to EMR. A sample of the lesion was sent for histology after snare resection of a small lesion fragment during attempted EMR. Moderate Sedation: MAC Recommendation: - Monitor for fevers, bleeding, abdominal pain. - Resume previous diet. - Hold any antiplatelet (ex. aspirin) and anticoagulant medications for 2 days. - Resume rest of home medications today. - Follow-up biopsy results. - Follow-up with [place] providers regarding Colorectal Surgery referral has been discussed with the patient/caregiver. - The potential complications and concerning symptoms/findings, including but not limited to early or delayed fevers, infection, pain, bleeding, and perforation, were discussed with the patient/caregiver. Emergency contact information was provided. Attending Participation: I personally performed the entire procedure. Procedure Code(s): --- Professional --- 00380, Sigmoidoscopy, flexible; with endoscopic mucosal resection Diagnosis Code(s): --- Professional --- D49.0, Neoplasm of unspecified behavior of digestive system K56.690, Other partial intestinal obstruction K63.5, Polyp of colon CPT copyright 2019 [employer]. All rights reserved. The codes documented in this report are preliminary and upon devil tender review may be revised to meet current compliance requirements. Art Muro MD 11/16/2020 1:07:25 PM Note Initiated On: 11/16/2020 7:59 AM Number of Addenda: 0 [facility] [address] [place] [address] [facility] 11/16/2020 7:5 9 AM CDT Art Muro MD GI PROCEDURE ORDERABLES Performing Organization Address City/State/[facility] Co de Phone Number [facility] Care Teams Skates Operator Relationship Specialty Start Date End Date Rafat Nunez MD [address] OF [facility] [place] [address] PCP - General 08/11/20
--- OUTSIDE RECORDS SUMMARY | 2024-06-09 10:03 | XMS_ITS | Referral Summary ---
Author Organization [facility] Address [address] [place] [address] Care Team Providers Care Beach Lifeguard Name Role Phone Rafat Nunez MD Primary Care Provider [phone] [phone] Source Comments [facility],non-[facility] Affiliates and Associated Physician Practices is amultiple site organization consisting of ambulatory clinics and hospital sitesin [place], [place], [place] and [place]. This disclosure is being madepursuant to the Care Everywhere program and may not contain all information available regarding this patient. Last updated 17.[facility] Allergies Active Allergy Reactions Criticality Noted Date [...] Immunizations Name Administration Dates Next Due Sharmin StartX primary monoval ent 12+ yr 0.3mL Purple [...] 11/16/2020 11:06 AM CDT Plan of Treatment Not on file Care Teams Beach Lifeguard Relationship Specialty Start Date End Date Rafat Nunez MD [address] OF [facility] [place] [phone] PCP - General 08/11/20
[2024-06-09] MEDS: IPRATROPIUM 0.5 MG/ALBUTEROL SULFATE 2.5 MG AMPUL.NEB 3 ML 12 ML INHALATION (10:49)
[2024-06-09] MEDS: methylPREDNISolone SOD SUCC 125 MG VIAL IV PUSH (11:10)
[2024-06-09] MEDS: FUROSEMIDE INJ 40 MG/4 ML VIAL IV PUSH (11:10)
--- NOTE | 2024-06-09 12:10 | ED.GENADULT ---
HPI - General Adult General Chief complaint: Shortness of Breath/Dyspnea Stated complaint: Respiratory distress Time Seen by Provider: 06/09/24 09:05 History of Present Illness HPI narrative: This is an 84-year-old male history of CHF and COPD presenting with trouble breathing. Patient says his breathing has been terrible for months however got acutely worse over the last 2 days. He has been taking his breathing treatments and Lasix as directed. He denies fevers chills chest pain abdominal pain or urinary symptoms. He does have edema of his lower extremities. [facility] He would like to be transferred back there possible. Related Data Home Medications ?Medication ?Instructions ?Recorded ?Confirmed ?Last Taken ?Type albuterol sulfate 90 mcg/actuation 2 puff inhalation QID PRN 09/03/20 09/03/20 Unknown History aerosol inhaler Shortness Of Breath Or Wheezing alogliptin 12.5 mg tablet 12.5 mg PO DAILY 09/03/20 09/03/20 Unknown History aspirin 81 mg chewable tablet 81 mg PO DAILY 09/03/20 09/03/20 Unknown History atorvastatin 40 mg tablet 40 mg PO HS 09/03/20 09/03/20 Unknown History budesonide-formoterol HFA 160 2 puff inhalation Q12H 09/03/20 09/03/20 Unknown History mcg-4.5 mcg/actuation aerosol inhaler (Symbicort) cholecalciferol (vitamin D3) 25 25 mcg PO DAILY 09/03/20 09/03/20 Unknown History mcg (1,000 unit) tablet cyanocobalamin (vitamin B-12) 1,000 mcg PO DAILY 09/03/20 09/03/20 Unknown History 1,000 mcg tablet ferrous sulfate 325 mg (65 mg 325 mg PO BID 09/03/20 09/04/20 Unknown History iron) tablet isosorbide mononitrate 10 mg tablet 15 mg PO BID 09/03/20 09/04/20 Unknown History magnesium oxide 400 mg PO DAILY 09/03/20 09/03/20 Unknown History metformin 500 mg tablet,extended 1,000 mg PO BID 09/03/20 09/03/20 Unknown History release 24 hr pantoprazole 40 mg tablet,delayed 40 mg PO QAM 09/03/20 09/03/20 Unknown History release (Protonix) sodium bicarbonate 650 mg tablet 650 mg PO BID 09/03/20 09/03/20 Unknown History tamsulosin 0.4 mg capsule (Flomax) 0.4 mg PO DAILY 09/03/20 09/03/20 Unknown History tiotropium bromide 2.5 2 puff inhalation DAILY 09/03/20 09/03/20 Unknown History mcg/actuation mist for inhalation Allergies Allergy/AdvReac Type Severity Reaction Status Date / Time latex Allergy Unknown Rash Verified 09/03/20 09:16 lisinopril Allergy Unknown Unknown Verified 09/03/20 15:06 [facility] Past Medical History Medical History DM2 (diabetes mellitus, type 2) BPH (benign prostatic hyperplasia) Blindness of right eye Unknown cause Tobacco abuse 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 Chronic anemia Chronic renal failure, stage 3 (moderate) Chronic respiratory failure with hypoxia He wears oxygen at 2 L per nasal cannula Hypertension Sleep apnea The patient no longer uses and CPAP machine CAD (coronary artery disease) Pacemaker CHF (congestive heart failure) COPD (chronic obstructive pulmonary disease) Surgical History Surgical History H/O cystoscopy With bladder biopsy S/P CABG x 5 S/P heart valve repair Stented coronary artery X1 Family History Family History Daughter Scleroderma Social History Social History Social History: The patient lives with his who is the durable power attorney recruiter for healthcare. The patient desires to be a full code but does not want to be in a vegetative state on a ventilator. Patient is retired from working for the [employer]. He had a son and a daughter but his daughter with the scleroderma. Patient does not use any alcohol, marijuana, or illicit drugs. The patient stated that he quit smoking 40 years ago. The patient served in the [employer] in [employer] and suffers from exposure from agent orange. Smoking packs per day: 2 Smoking cigarettes per day: 40.0 Years smoked: 6 Smoking pack-years: 12.00 Smoking status: Former smoker Tobacco type: cigarettes Second hand tobacco smoke exposure: No Alcohol intake: never Substance use: never Gender identity (if verbalized by the patient): Male Spiritual care concerns: No Exam Narrative: APPEARANCE: No apparent distress. Ill-appearing Head: atraumatic. EYES: EOMI, NOSE: Atraumatic NECK: Trachea midline RESPIRATORY: Tachypneic, diffuse wheezing and rhonchi CARDIOVASCULAR: Tachycardic, +3 pitting edema of the lower extremities ABDOMINAL: Non-distended soft nontender MUSCULOSKELETAl: No obvious deformities NEURO: Alert. Moving 4/4 extremities SKIN:: Warm, dry. Normal color PSYCHIATRIC: Normal affect Course Vital Signs Vital signs: Vital Signs Temperature 97.4 F L 06/09/24 08:04 Pulse Rate 76 06/09/24 08:04 Respiratory Rate 26 H 06/09/24 08:04 Blood Pressure 127/57 L 06/09/24 08:04 Pulse Oximetry 100 06/09/24 08:04 Oxygen Delivery Nasal Cannula 06/09/24 08:04 Oxygen Flow Rate 2 06/09/24 08:04 Temperature 97.4 F L 06/09/24 08:04 Pulse Rate 111 H 06/09/24 12:01 Respiratory Rate 18 06/09/24 12:01 Blood Pressure 127/58 L 06/09/24 12:01 Pulse Oximetry 100 06/09/24 12:01 Oxygen Delivery Nasal Cannula 06/09/24 08:05 Oxygen Flow Rate 2 06/09/24 08:05 Medical Decision Making [facility] Narrative Medical decision making narrative: -Course: 84-year-old male poor baseline respiratory status presenting with difficulty breathing. On exam he is ill-appearing. He has diffuse wheezing as well as rhonchi. Chest x-ray shows cardiomegaly, lower lobe infiltrates. He also has pitting edema of the lower extremities Patient given breathing treatments steroids as well as Lasix to improve his respiratory status. Patient was discharged from the [facility] last week for after an admission for respiratory failure. I attempted to transfer the patient back to hospital that they have no beds available. Patient started on broad-spectrum antibiotics. He will be admitted to the hospital for further management. -DDX includes but is not limited to: COPD, CHF, pneumonia, sepsis, UTI, dehydration -Co-morbidities complicating care: COPD, CHF -Independent interpretation of studies: White count 5.4, hgb 10.6 Potassium 5.1. Creatinine 1.97 from a baseline of about 1.6. BUN elevated at 98 [place] [address] trop elevated 0.085. Will continue to trend. Independent EKG interpretation: Rhythm paced, Rate [73], Mcfall -[normal], GA -[normal], QRS [narrow], QTC [492], T waves -[negative for concerning inversions], ST Segments - [Negative for concerning elevations] Final interpretations: Ventricular pacemaker Vital Signs Vital Signs: Vital Signs Temperature 97.4 F L 06/09/24 08:04 Pulse Rate 76 06/09/24 08:04 Respiratory Rate 26 H 06/09/24 08:04 Blood Pressure 127/57 L 06/09/24 08:04 Pulse Oximetry 100 06/09/24 08:04 Oxygen Delivery Nasal Cannula 06/09/24 08:04 Oxygen Flow Rate 2 06/09/24 08:04 Temperature 97.4 F L 06/09/24 08:04 Pulse Rate 111 H 06/09/24 12:01 Respiratory Rate 18 06/09/24 12:01 Blood Pressure 127/58 L 06/09/24 12:01 Pulse Oximetry 100 06/09/24 12:01 Oxygen Delivery Nasal Cannula 06/09/24 08:05 Oxygen Flow Rate 2 06/09/24 08:05 Lab Data 06/09/24 08:48 06/09/24 08:48 Labs: Lab Results 06/09/24 06/09/24 Range/Units 08:48 13:45 WBC 5.4 (4.5-10.0) K/mm3 RBC 3.45 L (4.6-6.20) M/mm3 Hgb 10.6 L (14.0-18.0) g/dL Hct 34.6 L (42.0-52.0) % MCV 100.3 H (80-100) fl MCH 30.7 (26-34) pg MCHC 30.6 L (32-36) g/dl RDW 14.7 H (11.5-14.5) % Plt Count 116 L (150-375) k/mm3 MPV 10.1 (7.4-10.4) fl Immature Gran % (Auto) 0.2 (0-0.5) % Neut % (Auto) 87.0 H (45.5-73.1) % Lymph % (Auto) 7.4 L (18.3-44.2) % [place] % (Auto) 4.5 (2.6-8.5) % Eos % (Auto) 0.7 (0-4.4) % Baso % (Auto) 0.2 (0.2-1.2) % Lymph # (Auto) 0.40 L (0.9-3.2) K/mm3 [place] # (Auto) 0.2 (0.1-0.6) K/mm3 Eos # (Auto) 0.0 (0-0.3) K/mm3 Baso # (Auto) 0.0 (0.0-0.1) K/mm3 Abs Immat Gran (auto) 0.01 (0.00-0.031) K/mm3 Absolute Neuts (auto) 4.7 (1.3-6.7) K/mm3 Absolute Nucleated RBC 0.000 (0.0-0.012) K/mm3 Nucleated RBC % 0.0 (0.0-0.2) % PT 15.4 H (11.1-14.7) Seconds INR 1.2 APTT 27.4 (22.3-36.8) Seconds Sodium 135 L (137-145) mmol/L Potassium 5.1 H (3.4-5.0) mmol/L Chloride 96 L (98-107) mmol/L Carbon Dioxide 28 (22-30) mmol/L Anion Gap 11 (4-12) mmol/L BUN 98 H D (9-20) mg/dL Creatinine 1.97 H (0.7-1.3) mg/dL Estim Creat Clear Calc 28 ml/min Estimated GFR 33 L (59 - ) Glucose 227 H (65-110) mg/dL Calcium 8.7 (8.4-10.2) mg/dL Total Bilirubin 0.9 (0.2-1.3) mg/dL AST 20 (17-59) U/L ALT 14 (6-50) U/L Alkaline Phosphatase 69 (38-126) U/L Troponin I 0.085 H* Pending (0.000-0.034) ng/mL NT-Pro-B Natriuret Pep > 55948 H (19.9-100) pg/mL Total Protein 7.0 (6.3-8.2) g/dL Albumin 4.2 (3.5-5.1) g/dL Critical Care Time Critical Care Time Critical Care Time: Yes Total Critical Care Time: 35 Discharge Plan Discharge Clinical Impression: COPD (chronic obstructive pulmonary disease), CHF (congestive heart failure), Respiratory failure Patient Disposition: Still a Patient Condition: Guarded Prognosis Patient Language: Kiswahili Prescriptions: No Action atorvastatin 40 mg Tablet 40 mg PO HS cyanocobalamin (vitamin B-12) 1,000 mcg Tablet 1,000 mcg PO DAILY aspirin 81 mg Tablet,Chewable 81 mg PO DAILY albuterol sulfate 90 mcg/actuation Hfa Aerosol Inhaler 2 puff INHALATION QID PRN (Reason: Shortness Of Breath Or Wheezing) cholecalciferol (vitamin D3) 25 mcg (1,000 unit) Tablet 25 mcg PO DAILY budesonide-formoterol [Symbicort] 160-4.5 mcg/actuation Hfa Aerosol Inhaler 2 puff INHALATION Q12H alogliptin 12.5 mg Tablet 12.5 mg PO DAILY tamsulosin [Flomax] 0.4 mg Capsule 0.4 mg PO DAILY sodium bicarbonate 650 mg Tablet 650 mg PO BID pantoprazole [Protonix] 40 mg Tablet,Delayed Release (Dr/Ec) 40 mg PO QAM ferrous sulfate 325 mg (65 mg iron) Tablet 325 mg PO BID isosorbide mononitrate 10 mg Tablet 15 mg PO BID metformin 500 mg Tablet Extended Release 24 Hr 1,000 mg PO BID tiotropium bromide 2.5 mcg/actuation Mist 2 puff INHALATION DAILY magnesium oxide 400 mg magnesium Tablet 400 mg PO DAILY nitroglycerin [Nitrostat] 0.4 mg Tablet, Sublingual 0.4 mg sublingual Q5MIN PRN (Reason: Chest Pain) Qty: 25 0RF bumetanide 1 mg Tablet 1 mg PO BID Qty: 60 0RF metoprolol succinate [Toprol XL] 25 mg Tablet Extended Release 24 Hr 25 mg PO QAM Qty: 30 0RF metolazone 2.5 mg tablet 2.5 mg PO WEEKLY Qty: 30 0RF Rx Instructions: twice a week prednisone 10 mg tablet 10 mg PO DAILY Qty: 48 0RF Rx Instructions: 6Tx2d, 5Tx2d, 4Tx2d, 3Tx3d, 2Tx3d, 1Tx3d Follow-up/Referrals: [facility] [Primary Care Provider] -
[2024-06-09 14:31] LABS: Troponin I 0.077 ng/mL (0.000-0.034)
[2024-06-09 14:47] LABS: Alveolar/Arterial O2 Gradient 13.6 mmHg; Base Excess ABG -3.2 mEq/l (+/-2.0); Fractional Inspired Oxygen 28 %; HCO3 ABG 26.8 mEq/l (22.0-26.0); Oxygen Content ABG 15.5 %vol (16.0-22.0); Oxygen Saturation ABG 94.8 % (95.0-100.0); Oxyhemoglobin 96.1 % THb (90.0-100.0); PO2 ABG 95.2 mmHg (80.0-100.0); Total Hemoglobin 11.4 g/dL (12.0-18.0)
[2024-06-09 14:49] LABS: pH ABG 7.159 (7.350-7.450)
[2024-06-09 14:50] LABS: Device NASAL CANNULA; Modified Allen's Test Pass; Site Drawn RIGHT RADIAL
[2024-06-09] MEDS: CEFEPIME 2 GM/NS 50 ML 2 GM/50 ML BAG IVPB (15:14)
[2024-06-09] MEDS: VANCOMYCIN 1,250 MG/NS 250 ML 1,250 MG/250 ML BAG 166.67 MG IVPB (15:21)
[2024-06-09 16:18] LABS: MRSA (PCR) NOT DETECTED (NOT DETECTE)
[2024-06-09 16:29] LABS: Glucose Point of Care 237 mg/dl (65-105)
--- NOTE | 2024-06-09 16:52 | PC.NURSE ---
Arrived to the floor via stretcher on 2L/NC. Oriented and able to follow simple commands. Respiratory therapy at bedside with to place patient on BIPAP. Patient verbalizes understanding related to care. Family has a medication list from a recent visit at the [place], however several of his home medications are not on the list that the patient thinks he is still taking. Patient's family will bring in current medications to verify what the patient is currently taking. No acute distress noted at this time. Family at the bedside.
[2024-06-09] MEDS: DOXYCYCLINE 100 MG/NS 100 ML 100 MG/100 ML BAG IVPB (17:11)
[2024-06-09] MEDS: VANCOMYCIN 1,000 MG/NS 250 ML 1,000 MG/250 ML BAG 250 MG IVPB (17:12)
--- NOTE | 2024-06-09 20:36 | P.HP_ITS ---
H&P: HPI History of Present Illness Date/Time: 06/09/24 20:36 Chief Complaint: Shortness of breath Narrative: 84 old male with medical history of CABG, pacemaker, CHF and COPD presents the hospital shortness of breath. Patient states that he has been short of breath for the past couple months however it is progressively worse the last 2 days. HPI is limited due to patient being on BiPAP and difficult to understand. Per the notes patient has been taking his Lasix as prescribed. He states that he is being having difficulties breathing for the last 2 months with lower extremity edema. The last 2 days he state or progressively worse so he came into the emergency room. While he was in the emergency room he had to be placed on BiPAP due to severe hypoxia. [facility] In the ED the patient is anemic at 10.6, ABG shows a pH of 7.159, pCO2 77, PO2 95, HC03 of 26. Patient's potassium is 5.1, BUN is 98, creatinine is 1.97, blood sugar 237, P troponin was 0.085, BNP is over 30,000, chest x-ray shows opacities consistent with atelectasis versus pneumonia, small pleural effusion cardiomegaly. 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 Chronic anemia Chronic renal failure, stage 3 (moderate) Chronic respiratory failure with hypoxia He wears oxygen at 2 L per nasal cannula Hypertension Sleep apnea The patient no longer uses and CPAP machine CAD (coronary artery disease) Pacemaker CHF (congestive heart failure) COPD (chronic obstructive pulmonary disease) Surgical History Surgical History H/O cystoscopy With bladder biopsy S/P CABG x 5 S/P heart valve repair Stented coronary artery X1 Family History Family History Daughter Scleroderma Social History Social History Social History: The patient lives with his who is the durable power health care attorney for healthcare. The patient desires to be a full code but does not want to be in a vegetative state on a ventilator. Patient is retired from working for the [employer]. He had a son and a daughter but his daughter with the scleroderma. Patient does not use any alcohol, marijuana, or illicit drugs. The patient stated that he quit smoking 40 years ago. The patient served in the [employer] in [place] and suffers from exposure from agent orange. Smoking packs per day: 2 Smoking cigarettes per day: 40.0 Years smoked: 22 Smoking pack-years: 44.00 Smoking status: Former smoker Tobacco type: cigarettes Second hand tobacco smoke exposure: No Smoking end date: 04/01/69 Alcohol intake: never Substance use: never Do You Feel Safe in your Home?: Yes Lack of Transportation: No Lack of Food: Never True Current Housing: I Have Housing Concerned About Future Housing: No Difficulty Paying Gas/Electric Bills: No Difficulty Paying for Meds: No Currently Unemployed: No Education: High School Diploma/GED Difficulty w/ Childcare or Family Care: No Gender identity (if verbalized by the patient): Male Spiritual care concerns: No Meds Home Medications and Allergies Home Medications ?Medication ?Instructions ?Recorded ?Confirmed ?Type albuterol sulfate 90 mcg/actuation 2 puff inhalation QID PRN 09/03/20 06/09/24 History aerosol inhaler Shortness Of Breath Or Wheezing alogliptin 12.5 mg tablet 12.5 mg PO DAILY 09/03/20 09/03/20 History aspirin 81 mg chewable tablet 81 mg PO DAILY 09/03/20 09/03/20 History atorvastatin 40 mg tablet 40 mg PO HS 09/03/20 09/03/20 History budesonide-formoterol HFA 160 2 puff inhalation Q12H 09/03/20 06/09/24 History mcg-4.5 mcg/actuation aerosol inhaler (Symbicort) cholecalciferol (vitamin D3) 25 25 mcg PO DAILY 09/03/20 09/03/20 History mcg (1,000 unit) tablet cyanocobalamin (vitamin B-12) 1,000 mcg PO DAILY 09/03/20 09/03/20 History 1,000 mcg tablet ferrous sulfate 325 mg (65 mg 325 mg PO BID 09/03/20 09/04/20 History iron) tablet isosorbide mononitrate 10 mg tablet 15 mg PO BID 09/03/20 09/04/20 History magnesium oxide 400 mg PO DAILY 09/03/20 09/03/20 History metformin 500 mg tablet,extended 1,000 mg PO BID 09/03/20 09/03/20 History release 24 hr pantoprazole 40 mg tablet,delayed 40 mg PO QAM 09/03/20 06/09/24 History release (Protonix) sodium bicarbonate 650 mg tablet 650 mg PO BID 09/03/20 09/03/20 History tamsulosin 0.4 mg capsule (Flomax) 0.4 mg PO DAILY 09/03/20 06/09/24 History tiotropium bromide 2.5 2 puff inhalation DAILY 09/03/20 09/03/20 History mcg/actuation mist for inhalation bumetanide 1 mg tablet 1 mg PO BID #60 tabs 09/08/20 Rx metolazone 2.5 mg tablet 2.5 mg PO WEEKLY #30 tabs 09/08/20 Rx metoprolol succinate 25 mg 25 mg PO QAM #30 tabs 09/08/20 06/09/24 Rx tablet,extended release 24 hr (Toprol XL) nitroglycerin 0.4 mg sublingual 0.4 mg sublingual Q5MIN PRN Chest 09/08/20 Rx tablet (Nitrostat) Pain #25 tabs prednisone 10 mg tablet 10 mg PO DAILY #48 tabs 09/08/20 Rx Allergies Allergy/AdvReac Type Severity Reaction Status Date / Time latex Allergy Unknown Rash Verified 09/03/20 09:16 lisinopril Allergy Unknown Unknown Verified 09/03/20 15:06 Vital Signs Vital Signs - 24 hr 06/09/24 08:04 06/09/24 08:05 06/09/24 08:19 Temperature 97.4 F L Pulse Rate 76 79 Respiratory Rate 26 H 23 H Blood Pressure 127/57 L 127/57 L Pulse Oximetry 100 100 100 Oxygen Delivery Nasal Cannula Nasal Cannula Oxygen Flow Rate 2 2 06/09/24 09:11 06/09/24 09:24 06/09/24 10:30 Temperature Pulse Rate 60 60 85 Respiratory Rate 20 27 H 22 H Blood Pressure 123/48 L 119/50 L 123/55 L Pulse Oximetry 100 100 100 Oxygen Delivery Oxygen Flow Rate 06/09/24 10:49 06/09/24 11:15 06/09/24 11:31 Temperature Pulse Rate 59 L 123 H 115 H Respiratory Rate 24 H 22 H 21 H Blood Pressure 124/49 L 106/73 Pulse Oximetry 100 100 Oxygen Delivery Oxygen Flow Rate 06/09/24 11:43 06/09/24 12:01 06/09/24 13:01 Temperature Pulse Rate 71 111 H 112 H Respiratory Rate 20 18 20 Blood Pressure 127/58 L 129/61 Pulse Oximetry 100 100 Oxygen Delivery Oxygen Flow Rate 06/09/24 14:01 06/09/24 14:45 06/09/24 15:05 Temperature Pulse Rate 73 112 H 74 Respiratory Rate 22 H 24 H 22 H Blood Pressure 119/56 L 119/58 L Pulse Oximetry 100 100 100 Oxygen Delivery BiPAP Oxygen Flow Rate 06/09/24 15:39 06/09/24 15:51 06/09/24 16:00 Temperature 97 F L Pulse Rate 88 60 63 Respiratory Rate 22 H 18 18 Blood Pressure 118/52 L 127/47 L Pulse Oximetry 100 100 100 Oxygen Delivery BiPAP Oxygen Flow Rate 06/09/24 18:00 06/09/24 18:35 06/09/24 20:34 Temperature 97.8 F Pulse Rate 60 60 61 Respiratory Rate 18 18 Blood Pressure 131/56 L Pulse Oximetry 100 100 Oxygen Delivery BiPAP Oxygen Flow Rate Exam Narrative: General: Chronically ill appearing, appears stated age. HEENT: normocephalic, atraumatic. Mucous membranes moist. EOMI, PERRLA, bilateral sclera anicteric, no conjunctival injection. Neck supple without JVD, lymphadenopathy, or bruit. Respiratory: Course to ascultation bilaterally. On BiPAP Cardiovascular: Regular rate and rhythm, normal S1-S2 upon ascultation. Murmur Abdomen: Soft, round, no pulsatile masses, nondistended and nontender. No rebound, no guarding. No CVA tenderness, no hepatosplenomegaly. Bowel sounds present to all four quadrants. No high pitch or tinkling sounds, resonant to percussion. Extremities: No cyanosis, clubbing, or edema present. Pulses are palpable 2/2. Active ROM to all four extremities. Neuro: Alert and orientated x 4. PERRLA. Cranial nerves 2-12 intact without focal deficit. Skin: Warm, dry, and intact, without rash, erythema, or lesion. Psych: pleasant, cooperative, normal speech, normal affect, no hallucinations, no dysarthia H&P: Results Labs Labs: Short CBC 06/09/24 Range/Units 08:48 WBC 5.4 (4.5-10.0) K/mm3 Hgb 10.6 L (14.0-18.0) g/dL Hct 34.6 L (42.0-52.0) % Plt Count 116 L (150-375) k/mm3 BMP 06/09/24 08:48 Sodium 135 L Potassium 5.1 H Chloride 96 L Carbon Dioxide 28 BUN 98 H D Creatinine 1.97 H Glucose 227 H Calcium 8.7 Cardiac Enzymes 06/09/24 06/09/24 Range/Units 08:48 13:45 Troponin I 0.085 H* 0.077 H* (0.000-0.034) ng/mL Liver Function 06/09/24 Range/Units 08:48 Total Bilirubin 0.9 (0.2-1.3) mg/dL AST 20 (17-59) U/L ALT 14 (6-50) U/L Alkaline Phosphatase 69 (38-126) U/L Albumin 4.2 (3.5-5.1) g/dL Assessment and Plan Assessment and plan (1) Acute respiratory failure with hypercapnia: Code(s): J96.02 - Acute respiratory failure with hypercapnia Status: Acute Assessment and Plan: With pneumonia IV Rocephin, vancomycin and doxycycline Blood cultures pending DuoNebs (2) CHF exacerbation: Code(s): I50.9 - Heart failure, unspecified Status: Acute Assessment and Plan: IV Lasix given in ED Placed on BiPAP IV Lasix in a.m. Fluid restriction 1600 (3) DM2 (diabetes mellitus, type 2): Code(s): E11.9 - Type 2 diabetes mellitus without complications Status: Chronic Assessment and Plan: NPO while BiPAP dependent Patient will need a diabetic diet Accu-Cheks q.6 hours SSI (4) Chronic renal failure, stage 3 (moderate): Code(s): N18.30 - Chronic kidney disease, stage 3 unspecified Status: Acute Assessment and Plan: Daily BMP Avoid nephrotoxic medications will receiving high-dose Lasix (5) Chronic respiratory failure with hypoxia: Code(s): J96.11 - Chronic respiratory failure with hypoxia Status: Chronic Assessment and Plan: 2 L nasal cannula baseline Plan will need to bring in medication list, he was recently admitted at the [facility], there med discrepancies between our list the [place] list. and patient do not know what he is taking. Quality VTE Prophylaxis VTE prophylaxis: mechanical ordered and pharmacologic ordered Hospitalist [facility] Advance Care Plan I have confirmed that the patient's Advanced Care Plan is present, code status is documented, or surrogate decision maker is listed in patient medical record.: Yes Medication Reconciliation I have utilized all available resources to obtain, update and review the patients current medications (includes all prescriptions, OTC, herbals, cannabis, and nutritional supplements).: Yes
[2024-06-09 21:16] LABS: Alveolar/Arterial O2 Gradient 65.6 mmHg; Base Excess ABG -6.5 mEq/l (+/-2.0); Carboxyhemoglobin 0.3 % THb (0-2.0); Fractional Inspired Oxygen 35 %; HCO3 ABG 22.3 mEq/l (22.0-26.0); Methemoglobin ABG 0.1 %THb (0-1.5); Oxygen Saturation ABG 96.8 % (95.0-100.0); Oxyhemoglobin 97.9 % THb (90.0-100.0); PO2 ABG 112.2 mmHg (80.0-100.0); PO2 FiO2 Ratio Arterial Blood 3.21 %; Reduced Hemoglobin 1.7 %THb (0-5.0); Total Hemoglobin 10.8 g/dL (12.0-18.0)
[2024-06-09 21:17] LABS: pH ABG 7.176 (7.350-7.450)
[2024-06-09 21:18] LABS: Device NON-INVASIVE VENT; Modified Allen's Test Pass; PCO2 ABG 61.7 mmHg (35.0-45.0); Site Drawn RIGHT RADIAL
[2024-06-09 21:19] LABS: Non-Invasive Expiratory Pressure 5 CMH2O; Non-Invasive Inspiratory Pressure 15 CMH2O; Non-Invasive Vent Rate 16 /MIN
[2024-06-10] VITALS (20 sets, daily range): BP systolic 105–135; BP diastolic 40–60; PULSE 59–103; RESP 18–27; TEMP 36.4–36.8; O2SAT 91–100
--- NOTE | 2024-06-10 | ECHO_ITS ---
Patient Info Name: Jessica Wallace Age: 84 years : 1940 Gender: Male Ht: 67 in Wt: 185 lbs BSA: 2.01 m2 HR: 60 bpm BP: 135 / 60 mmHg Technical Quality: Fair Exam Date: 06/10/2024 10:38 AM Exam Location: Echo Lab Patient Status: Inpatient Admit Date: 06/09/2024 Staff Ordering Physician: Chandan Vallejo MD Wrapper Rewinder: Letty Nogueira RDCS Attending Provider: Javier Viera MD Exam Type: CA echo doppler color flow Study Info Indications - CHF Complete two-dimensional, color flow and Doppler transthoracic echocardiogram is performed. Summary 1. Left ventricular chamber dimension is normal. 2. Left ventricular systolic function is mildly reduced, estimated at 40-45%. 3. There is mildly increased left ventricular wall thickness. 4. Right ventricular chamber dimension is normal. 5. Right ventricular systolic function is reduced. 6. Left atrial chamber dimension is severely enlarged. 7. Right atrial chamber dimension is severely enlarged. 8. Bioprosthetic valve appears to be well-seated. Leaflets not well visualized. Peak velocity of 2.5m/s, mean gradient of 13mmHg. 9. There is no aortic valve regurgitation. 10. The mitral valve annulus is severely calcified. 11. The mitral valve has thickened leaflets. 12. There is mild mitral valve regurgitation. 13. There is moderate tricuspid valve regurgitation. 14. Pulmonary hypertension, estimated pulmonary arterial systolic pressure is 66 mmHg. Left Ventricle Left ventricular chamber dimension is normal. Left ventricular systolic function is mildly reduced, estimated at 40-45%. There is mildly increased left ventricular wall thickness. Left ventricular septal wall motion is abnormal with septal motion related to pacing. The left ventricular diastolic function is abnormal. Right Ventricle Linear artifact in right ventricle suggestive of catheter(s), pacemaker lead(s), or ICD lead(s). Right ventricular chamber dimension is normal. Right ventricular systolic function is reduced. Left Atria Left atrial chamber dimension is severely enlarged. Right Atria Linear artifact in the right atrium suggestive of catheter(s), pacemaker lead(s), or ICD lead(s). Right atrial chamber dimension is severely enlarged. Atrial Septum Intact interatrial septum visualized by color flow imaging. Aortic Valve Bioprosthetic valve appears to be well-seated. Leaflets not well visualized. Peak velocity of 2.5m/s, mean gradient of 13mmHg. There is no aortic valve regurgitation. Mitral Valve The mitral valve has thickened leaflets. There is mild mitral valve regurgitation. The mitral valve annulus is severely calcified. Tricuspid Valve There is moderate tricuspid valve regurgitation. Pulmonary hypertension, estimated pulmonary arterial systolic pressure is 66 mmHg. Pericardium/Pleural There is no pericardial effusion. Inferior Vena Cava Dilated inferior vena cava with <50% collapse upon inspiration consistent with elevated right atrial pressure, 15 mmHg. Aorta The aortic root size at the sinus of Valsalva is normal. Left Ventricular Outflow Tract Name Value Normal LVOT 2D LVOT Diameter 2.0 cm LVOT Doppler LVOT Peak Gradient 8 mmHg LVOT Mean Gradient 4 mmHg LVOT VTI 28 cm LVOT VTI/AV VTI Ratio 0.5 LVOT Stroke Volume 85 ml LVOT CO 5.0 l/min LVOT CI 2.5 l/min/m2 Pulmonic Valve Name Value Normal RVOT Doppler RVOT Peak Gradient 1 mmHg PV Doppler PV Peak Gradient 5 mmHg Mitral Valve Name Value Normal MV Doppler MV Peak Gradient 18 mmHg MV Mean Gradient 6 mmHg MV Decel [place] 323 cm/s2 MV PHT 148 ms MV Area (PHT) 1.5 cm2 4.0-5.0 MV Area (Cont Eq VTI) 1.2 cm2 MV Regurgitation Doppler MR Peak Gradient 104 mmHg MV Diastolic Function MV E Peak Velocity 164 cm/s MV A Peak Velocity 4 cm/s MV E/A 40.1 MV Decel Time 509 ms MV Annular TDI MV E/e' (Septal) 36.1 <=8.0 MV E/e' (Lateral) 27.0 <=8.0 MV E/e' (Average) 31.6 Tricuspid Valve Name Value Normal TV Regurgitation Doppler TR Peak Velocity 357 cm/s TR Peak Gradient 47 mmHg Estimated PAP/RSVP RA Pressure 15 mmHg <=5 PA Systolic Pressure 66 mmHg <36 RV Systolic Pressure 66 mmHg <36 Aortic Valve Name Value Normal AV Doppler AV Peak Velocity 255 cm/s AV Peak Gradient 26 mmHg AV Mean Gradient 13 mmHg AV VTI 53 cm AV Area (Cont Eq VTI) 1.6 cm2 >=3.0 AV Area (Cont Eq [place]) 1.7 cm2 AV Regurgitation 2D LVOT Area 3.1 cm2 Ventricles Name Value Normal LV Dimensions 2D/MM IVS Diastolic Thickness (2D) 1.1 cm 0.6-1.0 LVID Diastole (2D) 5.0 cm 4.2-5.8 LVIW Diastolic Thickness (2D) 1.1 cm 0.6-1.0 LVID Systole (2D) 2.9 cm 2.5-4.0 LVOT Diameter 2.0 cm LV Mass (2D Cubed) 198.71 g 88.00-224.00 LV Mass Index (2D Cubed) 99 g/m2 49-115 Relative Wall Thickness (2D) 0.43 LV Fractional Shortening/Ejection Fraction 2D/MM LV Fractional Shortening (2D) 41 % 25-43 LV EF (2D Teicholz) 72 % 52-72 LV Diastolic Volume (4C MOD) 177 ml LV EF (4C MOD) 61 % LV Diastolic Volume (2C MOD) 210 ml LV EF (2C MOD) 56 % LV Diastolic Volume (BP MOD) 194 ml 62-150 LV Diastolic Volume Index (BP MOD) 96 ml/m2 34-74 LV Systolic Volume (BP MOD) 84 ml 21-61 LV Systolic Volume Index (BP MOD) 42 ml/m2 11-31 LV EF (BP MOD) 57 % 52-72 LV Diastolic Length (4C) 9.2 cm LV Systolic Length (4C) 8.3 cm LV Stroke Volume (4C MOD) 108 ml Atria Name Value Normal LA Dimensions LA Volume (4C A-L) 124 ml LA Volume (BP A-L) 108 ml RA Dimensions RA Area (4C) 26.1 cm2 <=18.0 Report Signatures
[2024-06-10 04:31] LABS: Estimated CRCL calculation 24 ml/min; Estimated Glomerular Filt Rate 31
[2024-06-10 05:32] LABS: Alveolar/Arterial O2 Gradient 39.6 mmHg; Base Excess ABG -3.2 mEq/l (+/-2.0); Carboxyhemoglobin 0.8 % THb (0-2.0); Device NON-INVASIVE VENT; Fractional Inspired Oxygen 25 %; Methemoglobin ABG 0.3 %THb (0-1.5); Oxygen Content ABG 13.8 %vol (16.0-22.0); Oxygen Saturation ABG 95.4 % (95.0-100.0); Oxyhemoglobin 95.7 % THb (90.0-100.0); PCO2 ABG 46.4 mmHg (35.0-45.0); PO2 ABG 83.6 mmHg (80.0-100.0); PO2 FiO2 Ratio Arterial Blood 3.34 %; Reduced Hemoglobin 3.2 %THb (0-5.0); Site Drawn RIGHT BRACHIAL; Total Hemoglobin 10.2 g/dL (12.0-18.0); pH ABG 7.313 (7.350-7.450)
[2024-06-10 05:33] LABS: Non-Invasive Expiratory Pressure 5 CMH2O; Non-Invasive Inspiratory Pressure 15 CMH2O; Non-Invasive Vent Rate 22 /MIN
[2024-06-10] MEDS: DOXYCYCLINE 100 MG/NS 100 ML 100 MG/100 ML BAG IVPB ×2 (05:57→17:55)
[2024-06-10 06:20] LABS: Glucose Point of Care 239 mg/dl (65-105)
[2024-06-10] MEDS: INSULIN ASPART (*BKC) 100 UNITS/ML SUB-Q ×2 (06:25→13:23)
--- NOTE | 2024-06-10 07:39 | P.PNIM_ITS ---
Progress Note: A&P Assessment and Plan (1) Acute respiratory failure with hypercapnia: Code(s): J96.02 - Acute respiratory failure with hypercapnia Status: Acute Assessment and Plan: With pneumonia IV Rocephin, vancomycin and doxycycline Blood cultures pending DuoNebs (2) CHF exacerbation: Code(s): I50.9 - Heart failure, unspecified Status: Acute Assessment and Plan: IV Lasix given in ED Placed on BiPAP IV Lasix in a.m. Fluid restriction 1600 (3) DM2 (diabetes mellitus, type 2): Code(s): E11.9 - Type 2 diabetes mellitus without complications Status: Chronic Assessment and Plan: NPO while BiPAP dependent Patient will need a diabetic diet Accu-Cheks q.6 hours SSI (4) Chronic renal failure, stage 3 (moderate): Code(s): N18.30 - Chronic kidney disease, stage 3 unspecified Status: Acute Assessment and Plan: Daily BMP Avoid nephrotoxic medications will receiving high-dose Lasix (5) Chronic respiratory failure with hypoxia: Code(s): J96.11 - Chronic respiratory failure with hypoxia Status: Chronic Assessment and Plan: 2 L nasal cannula baseline Plan will need to bring in medication list, he was recently admitted at the [facility], there med discrepancies between our list the [place] list. and patient do not know what he is taking. Subjective Date/time seen: 06/10/24 07:39 Interval history: Patient was recently to [place] for almost 10 days. patient is not able to verify his medications. Increased his Lasix from 40mg QD to BID. Will monitor his Cr and diuresis.Echo pending. Review of Systems Review of Systems: 12 systems were reviewed and are negativ e except for as per HPI. ROS unobtainable: Yes unobtainable due to medical condition Exam Narrative: General: Chronically ill appearing, appears stated age. HEENT: normocephalic, atraumatic. Mucous membranes moist. EOMI, PERRLA, bilateral sclera anicteric, no conjunctival injection. Neck supple without JVD, lymphadenopathy, or bruit. Respiratory: Course to ascultation bilaterally. On BiPAP Cardiovascular: Regular rate and rhythm, normal S1-S2 upon ascultation. Murmur Abdomen: Soft, round, no pulsatile masses, nondistended and nontender. No rebound, no guarding. No CVA tenderness, no hepatosplenomegaly. Bowel sounds present to all four quadrants. No high pitch or tinkling sounds, resonant to percussion. Extremities: No cyanosis, clubbing, or edema present. Pulses are palpable 2/2. Active ROM to all four extremities. Neuro: Alert and orientated x 4. PERRLA. Cranial nerves 2-12 intact without focal deficit. Skin: Warm, dry, and intact, without rash, erythema, or lesion. Psych: pleasant, cooperative, normal speech, normal affect, no hallucinations, no dysarthia Objective Data Vital Signs Vital Signs: Vital Signs - 24 hr 06/09/24 08:04 06/09/24 08:05 06/09/24 08:19 Temperature 97.4 F L Pulse Rate 76 79 Respiratory Rate 26 H 23 H Blood Pressure 127/57 L 127/57 L Pulse Oximetry 100 100 100 Oxygen Delivery Nasal Cannula Nasal Cannula Oxygen Flow Rate 2 2 Fraction of Inspired Oxygen 06/09/24 09:11 06/09/24 09:24 06/09/24 10:30 Temperature Pulse Rate 60 60 85 Respiratory Rate 20 27 H 22 H Blood Pressure 123/48 L 119/50 L 123/55 L Pulse Oximetry 100 100 100 Oxygen Delivery Oxygen Flow Rate Fraction of Inspired Oxygen 06/09/24 10:49 06/09/24 11:15 06/09/24 11:31 Temperature Pulse Rate 59 L 123 H 115 H Respiratory Rate 24 H 22 H 21 H Blood Pressure 124/49 L 106/73 Pulse Oximetry 100 100 Oxygen Delivery Oxygen Flow Rate Fraction of Inspired Oxygen 06/09/24 11:43 06/09/24 12:01 06/09/24 13:01 Temperature Pulse Rate 71 111 H 112 H Respiratory Rate 20 18 20 Blood Pressure 127/58 L 129/61 Pulse Oximetry 100 100 Oxygen Delivery Oxygen Flow Rate Fraction of Inspired Oxygen 06/09/24 14:01 06/09/24 14:45 06/09/24 15:05 Temperature Pulse Rate 73 112 H 74 Respiratory Rate 22 H 24 H 22 H Blood Pressure 119/56 L 119/58 L Pulse Oximetry 100 100 100 Oxygen Delivery BiPAP Oxygen Flow Rate Fraction of Inspired Oxygen 06/09/24 15:39 06/09/24 15:51 06/09/24 16:00 Temperature 97 F L Pulse Rate 88 60 63 Respiratory Rate 22 H 18 18 Blood Pressure 118/52 L 127/47 L Pulse Oximetry 100 100 100 Oxygen Delivery BiPAP Oxygen Flow Rate Fraction of Inspired Oxygen 06/09/24 18:00 06/09/24 18:35 06/09/24 20:00 Temperature Pulse Rate 60 60 116 H Respiratory Rate 18 Blood Pressure Pulse Oximetry 100 Oxygen Delivery BiPAP Oxygen Flow Rate Fraction of Inspired Oxygen 06/09/24 20:00 06/09/24 20:34 06/09/24 21:19 Temperature 97.8 F Pulse Rate 61 64 Respiratory Rate 18 20 Blood Pressure 131/56 L Pulse Oximetry 100 98 Oxygen Delivery BiPAP BiPAP Oxygen Flow Rate Fraction of Inspired Oxygen 30 06/09/24 22:00 06/09/24 23:49 06/10/24 00:00 Temperature 97.9 F Pulse Rate 60 60 Respiratory Rate 18 Blood Pressure 124/69 Pulse Oximetry 100 Oxygen Delivery BiPAP Oxygen Flow Rate Fraction of Inspired Oxygen 30 06/10/24 00:00 06/10/24 02:00 06/10/24 02:05 Temperature Pulse Rate 60 62 61 Respiratory Rate 22 H Blood Pressure Pulse Oximetry 100 Oxygen Delivery BiPAP Oxygen Flow Rate Fraction of Inspired Oxygen 06/10/24 03:49 06/10/24 03:56 06/10/24 04:00 Temperature 97.7 F Pulse Rate 60 60 Respiratory Rate 18 Blood Pressure 135/60 Pulse Oximetry 100 Oxygen Delivery BiPAP Oxygen Flow Rate Fraction of Inspired Oxygen 30 06/10/24 05:05 06/10/24 06:00 Temperature Pulse Rate 60 60 Respiratory Rate 22 H Blood Pressure Pulse Oximetry 99 Oxygen Delivery BiPAP Oxygen Flow Rate Fraction of Inspired Oxygen Intake/Output Intake/Output: Intake & Output 06/08/24 06/08/24 06/09/24 06/10/24 00:59 23:59 23:59 23:59 Intake Total 120 550 Output Total 500 Balance 120 50 Meds/Results Medications: Active Medications Generic Name Dose Route Start Last Admin Trade Name Freq PRN Reason Stop Dose Admin Acetaminophen 650 mg 06/10/24 01:25 Acetaminophen 325 Mg Tablet PO Q4H PRN Mild Pain (1-3) or Fever Dextrose 12.5 gm 06/10/24 01:20 Dextrose 50% 25 Gm/50 Ml Syringe IV PUSH PRN PRN Hypoglycemia Protocol Enoxaparin Sodium 40 mg 06/10/24 09:00 Enoxaparin 40 Mg/0.4 Ml Syringe SUB-Q DAILY WARD Furosemide 40 mg 06/10/24 09:00 Furosemide Inj 40 Mg/4 Ml Vial IV PUSH DAILY WARD Glucagon 1 mg 06/10/24 01:20 Glucagon For Inj 1 Mg Vial IM PRN PRN Hypoglycemia Protocol Glucose 15 gm 06/10/24 01:20 Glucose Oral Gel 15 Gm Of Glucse In 37.5 Gm Tube PO PRN PRN Hypoglycemia Protocol Doxycycline Hyclate 100 mg in 100 mls @ 100 mls/hr 06/10/24 06:00 06/10/24 05:57 Vibramycin 100 Mg/Ns 100 Ml IVPB 100 mls/hr Q12H WARD Administration Cefepime HCl 2 gm in 50 mls @ 100 mls/hr 06/10/24 12:00 Maxipime 2 Gm/Ns 50 Ml IVPB Q24H WARD Vancomycin HCl 1,500 mg in 500 mls @ 250 mls/hr 06/11/24 03:00 Vancomycin 1,500 Mg/Ns 500 Ml IVPB Q36H WARD Dextrose 1,000 mls @ 100 mls/hr 06/10/24 01:20 Dextrose 5% 1,000 Ml IVPB PRN PRN Hypoglycemia Protocol Insulin Aspart 3 - 6 units 06/10/24 06:00 06/10/24 06:25 Insulin Aspart (*Bkc) 100 Units/Ml SUB-Q 3 units Q6HR WARD Administration Protocol Radiology Results: ITS Impressions Chest X-Ray 06/09/24 09:14 IMPRESSION: 1. Airspace opacities in the mid and lower lung zones, consistent with atelectasis versus pneumonia. 2. Small pleural effusions. 3. Cardiomegaly. Labs Labs: Laboratory Results - last 24 hr 06/09/24 06/09/24 06/09/24 08:48 13:45 14:45 WBC 5.4 RBC 3.45 L Hgb 10.6 L Hct 34.6 L MCV 100.3 H MCH 30.7 MCHC 30.6 L RDW 14.7 H Plt Count 116 L MPV 10.1 Immature Gran % (Auto) 0.2 Neut % (Auto) 87.0 H Lymph % (Auto) 7.4 L Fountain % (Auto) 4.5 Eos % (Auto) 0.7 Baso % (Auto) 0.2 Lymph # (Auto) 0.40 L [place] # (Auto) 0.2 Eos # (Auto) 0.0 Baso # (Auto) 0.0 Abs Immat Gran (auto) 0.01 Absolute Neuts (auto) 4.7 Absolute Nucleated RBC 0.000 Nucleated RBC % 0.0 PT 15.4 H INR 1.2 APTT 27.4 Puncture Site Right radial ABG pH 7.159 L* ABG pCO2 77.0 H* ABG pO2 95.2 ABG PO2/FiO2 Ratio 3.40 ABG HCO3 26.8 H ABG O2 Saturation 94.8 L ABG O2 Content 15.5 L ABG Base Excess -3.2 A-a Gradient 13.6 Oxyhemoglobin 96.1 Carboxyhemoglobin Methemoglobin Reduced Hemoglobin Total Hemoglobin 11.4 L O2 Delivery Device Nasal cannula O2 Liters/Min 2.0 Vent Rate FiO2 28 Expiratory Pressure Inspiratory Pressure Sodium 135 L Potassium 5.1 H Chloride 96 L Carbon Dioxide 28 Anion Gap 11 BUN 98 H D Creatinine 1.97 H Estim Creat Clear Calc 28 Estimated GFR 33 L Glucose 227 H POC Capillary Glucose Calcium 8.7 Total Bilirubin 0.9 AST 20 ALT 14 Alkaline Phosphatase 69 Troponin I 0.085 H* 0.077 H* NT-Pro-B Natriuret Pep > 78481 H Total Protein 7.0 Albumin 4.2 Nasal MRSA (PCR) 06/09/24 06/09/24 06/09/24 15:01 16:26 21:06 WBC RBC Hgb Hct MCV MCH MCHC RDW Plt Count MPV Immature Gran % (Auto) Neut % (Auto) Lymph % (Auto) Fountain % (Auto) Eos % (Auto) Baso % (Auto) Lymph # (Auto) Fountain # (Auto) Eos # (Auto) Baso # (Auto) Abs Immat Gran (auto) Absolute Neuts (auto) Absolute Nucleated RBC Nucleated RBC % PT INR APTT Puncture Site Right radial ABG pH 7.176 L* ABG pCO2 61.7 H* ABG pO2 112.2 H ABG PO2/FiO2 Ratio 3.21 ABG HCO3 22.3 ABG O2 Saturation 96.8 ABG O2 Content 15.0 L ABG Base Excess -6.5 A-a Gradient 65.6 Oxyhemoglobin 97.9 Carboxyhemoglobin 0.3 Methemoglobin 0.1 Reduced Hemoglobin 1.7 Total Hemoglobin 10.8 L O2 Delivery Device Non-invasive vent O2 Liters/Min Not Reportable Vent Rate 16 FiO2 35 Expiratory Pressure 5 Inspiratory Pressure 15 Sodium Potassium Chloride Carbon Dioxide Anion Gap BUN Creatinine Estim Creat Clear Calc Estimated GFR Glucose POC Capillary Glucose 237 H Calcium Total Bilirubin AST ALT Alkaline Phosphatase Troponin I NT-Pro-B Natriuret Pep Total Protein Albumin Nasal MRSA (PCR) Not detected 06/10/24 06/10/24 06/10/24 03:44 05:13 06:17 WBC RBC Hgb Hct MCV MCH MCHC RDW Plt Count MPV Immature Gran % (Auto) Neut % (Auto) Lymph % (Auto) Fountain % (Auto) Eos % (Auto) Baso % (Auto) Lymph # (Auto) Fountain # (Auto) Eos # (Auto) Baso # (Auto) Abs Immat Gran (auto) Absolute Neuts (auto) Absolute Nucleated RBC Nucleated RBC % PT INR APTT Puncture Site Right brachial ABG pH 7.313 L ABG pCO2 46.4 H ABG pO2 83.6 ABG PO2/FiO2 Ratio 3.34 ABG HCO3 23.0 ABG O2 Saturation 95.4 ABG O2 Content 13.8 L ABG Base Excess -3.2 A-a Gradient 39.6 Oxyhemoglobin 95.7 Carboxyhemoglobin 0.8 Methemoglobin 0.3 Reduced Hemoglobin 3.2 Total Hemoglobin 10.2 L O2 Delivery Device Non-invasive vent O2 Liters/Min Not Reportable Vent Rate 22 FiO2 25 Expiratory Pressure 5 Inspiratory Pressure 15 Sodium Potassium Chloride Carbon Dioxide Anion Gap BUN Creatinine 2.04 H Estim Creat Clear Calc 24 Estimated GFR 31 L Glucose POC Capillary Glucose 239 H Calcium Total Bilirubin AST ALT Alkaline Phosphatase Troponin I NT-Pro-B Natriuret Pep Total Protein Albumin Nasal MRSA (PCR) Quality VTE Prophylaxis VTE prophylaxis: mechanical ordered and pharmacologic ordered Hospitalist MIPS Advance Care Plan I have confirmed that the patient's Advanced Care Plan is present, code status is documented, or surrogate decision maker is listed in patient medical record.: Yes Medication Reconciliation I have utilized all available resources to obtain, update and review the patients current medications (includes all prescriptions, OTC, herbals, cannabis, and nutritional supplements).: Yes
[2024-06-10 07:49] LABS: Hematocrit 33.9 % (42.0-52.0); Hemoglobin 10.3 g/dL (14.0-18.0); Mean Corpuscular HGB Conc 30.4 g/dl (32-36); Mean Corpuscular Hemoglobin 30.8 pg (26-34); Mean Corpuscular Volume 101.5 fl (80-100); Mean Platelet Volume 10.4 fl (7.4-10.4); Platelet Count Result 108 k/mm3 (150-375); Red Blood Count 3.34 M/mm3 (4.6-6.20); Red Cell Distribution Width 14.7 % (11.5-14.5); White Blood Count 3.4 K/mm3 (4.5-10.0)
[2024-06-10 08:29] LABS: Alanine Aminotransferase 14 U/L (6-50); Albumin Level 3.9 g/dL (3.5-5.1); Alkaline Phosphatase 78 U/L (38-126); Anion Gap 13 mmol/L (4-12); Aspartate Amino Transferase 16 U/L (17-59); Bilirubin,Total 0.7 mg/dL (0.2-1.3); Blood Urea Nitrogen 98 mg/dL (9-20); Calcium 8.6 mg/dL (8.4-10.2); Carbon Dioxide 24 mmol/L (22-30); Chloride 97 mmol/L (98-107); Estimated CRCL calculation 24 ml/min; Estimated Glomerular Filt Rate 33; Glucose 292 mg/dL (65-110); Potassium 5.5 mmol/L (3.4-5.0); Sodium 134 mmol/L (137-145)
[2024-06-10] MEDS: FUROSEMIDE INJ 40 MG/4 ML VIAL IV PUSH ×2 (09:21→17:50)
[2024-06-10] MEDS: ENOXAPARIN 30 MG/0.3 ML SYRINGE SUB-Q (09:22)
--- NOTE | 2024-06-10 10:03 | P.CDI_ITS ---
CDI Query Clarification Request CHF exacerbation has been documented. Please specify type of heart failure if known. * Systolic * Diastolic * Combined Systolic and Diastolic * Unknown The medical chart reflects the following: (2) CHF exacerbation: Code(s): I50.9 - Heart failure, unspecified Status: Acute Assessment and Plan: IV Lasix given in ED Placed on BiPAP IV Lasix in a.m. Fluid restriction 1600 <Shari Motley RN - Last Filed: 06/10/24 10:04> Clarified Diagnosis Clarified Diagnosis: Unknown <Chandan Vallejo MD - Last Filed: 06/10/24 18:40>
[2024-06-10 10:25] LABS: Influenza A QL RT-PCR Negative (Negative); Influenza B QL RT-PCR Negative (Negative); RSV RNA, RT-PCR Negative (Negative); SARS-CoV-2 RNA PCR Negative (Negative)
--- NOTE | 2024-06-10 10:36 | PM.CNCAR ---
Assessment and Plan Assessment and plan (1) CHF (congestive heart failure): Code(s): I50.9 - Heart failure, unspecified Status: Acute Plan 1. Acute on chronic congestive heart failure. 2. Acute hypercarbic respiratory failure 3. CHRISTIAN vs CHRISTIAN on CKD vs CKD 4. CAD s/p CABG 5. S/p bioprosthetic aortic valve 6. S/p biventricular ICD 7. COPD 8. Hypertension 9. Hyperlipidemia 10. Type 2 diabetes mellitus PLAN: -Please obtain records from the [facility]. -Echocardiogram pending. -Continue with IV Lasix for now. Please monitor strict I/Os. -Unclear what his baseline renal function is (last labs we have are from 2020). Monitor renal function closely with IV diuresis. If renal function worsens, consider Nephrology consultation. -Management of acute hypercarbic respiratory failure. -Need an updated medication list. is reportedly bringing pill bottles from home. [facility] Recommendations and plan discussed with Hospitalist. History of Present Illness History of Present Illness Consult date/time: 06/10/24 10:36 Requesting physician: Chandan Vallejo MD Consult reason: congestive heart failure Reason For Visit: Respiratory Failure Narrative: We are consulted for CHF. This is an 84 year old male with congestive heart failure, CAD s/p CABG, s/p bioprosthetic aortic valve, s/p ICD, COPD, hypertension, hyperlipidemia, type 2 diabetes mellitus. Last seen here in 2020. He gets his care at the [facility]. Jessica is a poor historian. Cannot recall the names of any of his home medications. 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 Eddierosita states that he was just recently discharged from the [facility] on Saturday. Was admitted there for 9 days. Came to [place] because he started having shortness of breath and worsening lower extremity edema at home. In the ED, he was found to have diffuse wheezing. Given breathing treatments, IV Lasix. Since he was just recently discharged from the [facility], our ED attempted to transfer him back to the [facility], but they allegedly do not have any beds. Patient was placed on BIPAP for acute hypercarbic respiratory failure. Workup here shows: Troponins 0.085, 0.077. NT pro BNP >30,000. CXR with atelectasis vs pneumonia, small pleural effusions, cardiomegaly. EKG with paced rhythm. 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 Chronic anemia Chronic renal failure, stage 3 (moderate) Chronic respiratory failure with hypoxia He wears oxygen at 2 L per nasal cannula Hypertension Sleep apnea The patient no longer uses and CPAP machine CAD (coronary artery disease) Pacemaker CHF (congestive heart failure) COPD (chronic obstructive pulmonary disease) Surgical History Surgical History H/O cystoscopy With bladder biopsy S/P CABG x 5 S/P heart valve repair Stented coronary artery X1 Family History Family History Daughter Scleroderma Social History Social History Social History: The patient lives with his who is the durable power trial attorney for healthcare. The patient desires to be a full code but does not want to be in a vegetative state on a ventilator. Patient is retired from working for the [employer]. He had a son and a daughter but his daughter with the scleroderma. Patient does not use any alcohol, marijuana, or illicit drugs. The patient stated that he quit smoking 40 years ago. The patient served in the [employer] in [employer] and suffers from exposure from agent orange. Smoking packs per day: 2 Smoking cigarettes per day: 40.0 Years smoked: 22 Smoking pack-years: 44.00 Smoking status: Former smoker Tobacco type: cigarettes Second hand tobacco smoke exposure: No Smoking end date: 04/01/69 Alcohol intake: never Substance use: never Do You Feel Safe in your Home?: Yes Lack of Transportation: No Lack of Food: Never True Current Housing: I Have Housing Concerned About Future Housing: No Difficulty Paying Gas/Electric Bills: No Difficulty Paying for Meds: No Currently Unemployed: No Education: High School Diploma/GED Difficulty w/ Childcare or Family Care: No Gender identity (if verbalized by the patient): Male Spiritual care concerns: No Meds Home Medications and Allergies Home Medications ?Medication ?Instructions ?Recorded ?Confirmed ?Type albuterol sulfate 90 mcg/actuation 2 puff inhalation QID PRN 09/03/20 06/09/24 History aerosol inhaler Shortness Of Breath Or Wheezing alogliptin 12.5 mg tablet 12.5 mg PO DAILY 09/03/20 09/03/20 History aspirin 81 mg chewable tablet 81 mg PO DAILY 09/03/20 09/03/20 History atorvastatin 40 mg tablet 40 mg PO HS 09/03/20 09/03/20 History budesonide-formoterol HFA 160 2 puff inhalation Q12H 09/03/20 06/09/24 History mcg-4.5 mcg/actuation aerosol inhaler (Symbicort) cholecalciferol (vitamin D3) 25 25 mcg PO DAILY 09/03/20 09/03/20 History mcg (1,000 unit) tablet cyanocobalamin (vitamin B-12) 1,000 mcg PO DAILY 09/03/20 09/03/20 History 1,000 mcg tablet ferrous sulfate 325 mg (65 mg 325 mg PO BID 09/03/20 09/04/20 History iron) tablet isosorbide mononitrate 10 mg tablet 15 mg PO BID 09/03/20 09/04/20 History magnesium oxide 400 mg PO DAILY 09/03/20 09/03/20 History metformin 500 mg tablet,extended 1,000 mg PO BID 09/03/20 09/03/20 History release 24 hr pantoprazole 40 mg tablet,delayed 40 mg PO QAM 09/03/20 06/09/24 History release (Protonix) sodium bicarbonate 650 mg tablet 650 mg PO BID 09/03/20 09/03/20 History tamsulosin 0.4 mg capsule (Flomax) 0.4 mg PO DAILY 09/03/20 06/09/24 History tiotropium bromide 2.5 2 puff inhalation DAILY 09/03/20 09/03/20 History mcg/actuation mist for inhalation bumetanide 1 mg tablet 1 mg PO BID #60 tabs 09/08/20 Rx metolazone 2.5 mg tablet 2.5 mg PO WEEKLY #30 tabs 09/08/20 Rx metoprolol succinate 25 mg 25 mg PO QAM #30 tabs 09/08/20 06/09/24 Rx tablet,extended release 24 hr (Toprol XL) nitroglycerin 0.4 mg sublingual 0.4 mg sublingual Q5MIN PRN Chest 09/08/20 Rx tablet (Nitrostat) Pain #25 tabs prednisone 10 mg tablet 10 mg PO DAILY #48 tabs 09/08/20 Rx Allergies Allergy/AdvReac Type Severity Reaction Status Date / Time latex Allergy Unknown Rash Verified 09/03/20 09:16 lisinopril Allergy Unknown Unknown Verified 09/03/20 15:06 Vital Signs Vital Signs - 24 hr 06/09/24 10:49 06/09/24 11:15 06/09/24 11:31 Temperature Pulse Rate 59 L 123 H 115 H Respiratory Rate 24 H 22 H 21 H Blood Pressure 124/49 L 106/73 Pulse Oximetry 100 100 Oxygen Delivery Oxygen Flow Rate Fraction of Inspired Oxygen 06/09/24 11:43 06/09/24 12:01 06/09/24 13:01 Temperature Pulse Rate 71 111 H 112 H Respiratory Rate 20 18 20 Blood Pressure 127/58 L 129/61 Pulse Oximetry 100 100 Oxygen Delivery Oxygen Flow Rate Fraction of Inspired Oxygen 06/09/24 14:01 06/09/24 14:45 06/09/24 15:05 Temperature Pulse Rate 73 112 H 74 Respiratory Rate 22 H 24 H 22 H Blood Pressure 119/56 L 119/58 L Pulse Oximetry 100 100 100 Oxygen Delivery BiPAP Oxygen Flow Rate Fraction of Inspired Oxygen 06/09/24 15:39 06/09/24 15:51 06/09/24 16:00 Temperature 36.1 C L Pulse Rate 88 60 63 Respiratory Rate 22 H 18 18 Blood Pressure 118/52 L 127/47 L Pulse Oximetry 100 100 100 Oxygen Delivery BiPAP Oxygen Flow Rate Fraction of Inspired Oxygen 06/09/24 18:00 06/09/24 18:35 06/09/24 20:00 Temperature Pulse Rate 60 60 116 H Respiratory Rate 18 Blood Pressure Pulse Oximetry 100 Oxygen Delivery BiPAP Oxygen Flow Rate Fraction of Inspired Oxygen 06/09/24 20:00 06/09/24 20:34 06/09/24 21:19 Temperature 36.6 C Pulse Rate 61 64 Respiratory Rate 18 20 Blood Pressure 131/56 L Pulse Oximetry 100 98 Oxygen Delivery BiPAP BiPAP Oxygen Flow Rate Fraction of Inspired Oxygen 30 06/09/24 22:00 06/09/24 23:49 06/10/24 00:00 Temperature 36.6 C Pulse Rate 60 60 Respiratory Rate 18 Blood Pressure 124/69 Pulse Oximetry 100 Oxygen Delivery BiPAP Oxygen Flow Rate Fraction of Inspired Oxygen 30 06/10/24 00:00 06/10/24 02:00 06/10/24 02:05 Temperature Pulse Rate 60 62 61 Respiratory Rate 22 H Blood Pressure Pulse Oximetry 100 Oxygen Delivery BiPAP Oxygen Flow Rate Fraction of Inspired Oxygen 06/10/24 03:49 06/10/24 03:56 06/10/24 04:00 Temperature 36.5 C Pulse Rate 60 60 Respiratory Rate 18 Blood Pressure 135/60 Pulse Oximetry 100 Oxygen Delivery BiPAP Oxygen Flow Rate Fraction of Inspired Oxygen 30 06/10/24 05:05 06/10/24 06:00 06/10/24 08:00 Temperature 36.8 C Pulse Rate 60 60 66 Respiratory Rate 22 H 22 H Blood Pressure 114/42 L Pulse Oximetry 99 100 Oxygen Delivery BiPAP Oxygen Flow Rate Fraction of Inspired Oxygen 06/10/24 08:27 Temperature Pulse Rate Respiratory Rate Blood Pressure Pulse Oximetry 100 Oxygen Delivery Nasal Cannula Oxygen Flow Rate 2 Fraction of Inspired Oxygen Exam Const: General: no acute distress HENMT: Mouth: Yes moist mucous membranes Eyes: General: appearance normal, both eyes and all related structures Sclera: sclerae normal Resp: Effort & Inspection: normal respiratory effort Auscultation: diminished lung sounds Cardio: Rate: regular rate Rhythm: regular rhythm Heart sounds: no murmurs Other: + Bilateral lower extremity edema Skin: General skin exam: normal color Psych: Mental Status: mental status grossly normal Affect: normal affect Results Labs and Meds 06/10/24 03:34 06/10/24 03:44 Lab results: Cardiac Enzymes 06/09/24 06/10/24 Range/Units 13:45 03:34 AST 16 L (17-59) U/L Troponin I 0.077 H* (0.000-0.034) ng/mL CBC 06/10/24 Range/Units 03:34 WBC 3.4 L (4.5-10.0) K/mm3 RBC 3.34 L (4.6-6.20) M/mm3 Hgb 10.3 L (14.0-18.0) g/dL Hct 33.9 L (42.0-52.0) % Plt Count 108 L (150-375) k/mm3 Comprehensive Metabolic Panel 06/10/24 06/10/24 Range/Units 03:34 03:44 Sodium 134 L (137-145) mmol/L Potassium 5.5 H (3.4-5.0) mmol/L Chloride 97 L (98-107) mmol/L Carbon Dioxide 24 (22-30) mmol/L BUN 98 H (9-20) mg/dL Creatinine 1.98 H 2.04 H (0.7-1.3) mg/dL Glucose 292 H (65-110) mg/dL Calcium 8.6 (8.4-10.2) mg/dL AST 16 L (17-59) U/L ALT 14 (6-50) U/L Alkaline Phosphatase 78 (38-126) U/L Total Protein 6.0 L (6.3-8.2) g/dL Albumin 3.9 (3.5-5.1) g/dL Intake and Output 06/09/24 06/10/24 06/10/24 23:59 07:59 15:59 Intake Total 120 550 Output Total 500 Balance 120 50 Intake: Oral 120 550 Output: Urine 500 Other: Number of Bowel Movements Today 0 Patient Weight 06/10/24 23:59 Weight 84.2 kg
[2024-06-10 13:02] LABS: Glucose Point of Care 275 mg/dl (65-105)
[2024-06-10] MEDS: CEFEPIME 2 GM/NS 50 ML 2 GM/50 ML BAG IVPB (13:24)
--- NOTE | 2024-06-10 13:58 | PC.NURSE ---
home medications list confirmed with discharge summary from hospital 05/30/24
[2024-06-10 16:31] LABS: Glucose Point of Care 171 mg/dl (65-105)
[2024-06-10 20:06] LABS: Glucose Point of Care 193 mg/dl (65-105)
[2024-06-11] VITALS (18 sets, daily range): BP systolic 104–115; BP diastolic 41–50; PULSE 60–119; RESP 16–28; TEMP 36.1–36.6; O2SAT 93–100
[2024-06-11 04:32] LABS: Eosinophils Percent Auto 0.7 % (0-4.4); Hematocrit 30.2 % (42.0-52.0); Hemoglobin 9.3 g/dL (14.0-18.0); Immature Granulocyte Absolute 0.01 K/mm3 (0.00-0.031); Immature Granulocyte Percent A 0.2 % (0-0.5); Lymphocytes Absolute Auto 0.43 K/mm3 (0.9-3.2); Lymphocytes Percent Auto 9.6 % (18.3-44.2); Mean Corpuscular HGB Conc 30.8 g/dl (32-36); Mean Corpuscular Hemoglobin 30.4 pg (26-34); Mean Corpuscular Volume 98.7 fl (80-100); Mean Platelet Volume 10.1 fl (7.4-10.4); Monocytes Absolute Auto 0.2 K/mm3 (0.1-0.6); Monocytes Percent Auto 5.1 % (2.6-8.5); Neutrophils Absolute Auto 3.8 K/mm3 (1.3-6.7); Neutrophils Percent Auto 84.4 % (45.5-73.1); Platelet Count Result 105 k/mm3 (150-375); Red Blood Count 3.06 M/mm3 (4.6-6.20); Red Cell Distribution Width 14.7 % (11.5-14.5); White Blood Count 4.5 K/mm3 (4.5-10.0)
[2024-06-11 04:43] LABS: Anion Gap 9 mmol/L (4-12); Blood Urea Nitrogen 101 mg/dL (9-20); Calcium 8.6 mg/dL (8.4-10.2); Carbon Dioxide 29 mmol/L (22-30); Chloride 96 mmol/L (98-107); Estimated CRCL calculation 27 ml/min; Estimated Glomerular Filt Rate 36; Glucose 215 mg/dL (65-110); Potassium 4.5 mmol/L (3.4-5.0); Sodium 134 mmol/L (137-145)
[2024-06-11] MEDS: DOXYCYCLINE 100 MG/NS 100 ML 100 MG/100 ML BAG IVPB ×2 (05:56→17:22)
[2024-06-11 08:14] LABS: Glucose Point of Care 211 mg/dl (65-105)
[2024-06-11] MEDS: INSULIN ASPART (*BKC) 100 UNITS/ML SUB-Q ×3 (08:16→20:49)
[2024-06-11] MEDS: FUROSEMIDE INJ 40 MG/4 ML VIAL IV PUSH (08:18)
[2024-06-11] MEDS: ENOXAPARIN 30 MG/0.3 ML SYRINGE SUB-Q (08:18)
[2024-06-11] MEDS: CEFEPIME 2 GM/NS 50 ML 2 GM/50 ML BAG IVPB (11:37)
--- NOTE | 2024-06-11 11:50 | PM.PNCARD ---
Progress Note: A&P Assessment and Plan (1) CHF (congestive heart failure): Code(s): I50.9 - Heart failure, unspecified Status: Acute Plan 1. Acute on chronic congestive heart failure. 2. Acute hypercarbic respiratory failure 3. CHRISTIAN vs CHRISTIAN on CKD vs CKD 4. CAD s/p CABG 5. S/p bioprosthetic aortic valve 6. S/p biventricular ICD 7. COPD 8. Hypertension 9. Hyperlipidemia 10. Type 2 diabetes mellitus PLAN: -Furosemide shifted to bumex - he has both bumex and torsemide on his home medication list, but will shift him to bumex as he still has significant lower extremity edema. -Echo showed mildly reduced EF, 40-45%, pulmonary HTN with PASP 66 mmHg -Unclear what his baseline renal function is (last labs we have are from 2020). Monitor renal function closely with IV diuresis. If renal function worsens, consider Nephrology consultation. -Management of acute hypercarbic respiratory failure. - states she told another staff member to change his code status to DNR. Recommendations and plan discussed with Hospitalist. Subjective Date/time seen: 06/11/24 11:50 Interval history: Cardiology follow up visit He does not feel any better today. On BiPAP currently. Edema is still significant. Review of Systems Review of Systems: All systems reviewed & are unremarkable except as noted in HPI and below (HPI) Exam Const: General: no acute distress Other: on BiPAP HENMT: Mouth: Yes moist mucous membranes Eyes: General: appearance normal, both eyes and all related structures Sclera: sclerae normal Resp: Effort & Inspection: normal respiratory effort Auscultation: diminished lung sounds Cardio: Rate: regular rate Rhythm: regular rhythm Heart sounds: no murmurs Skin: General skin exam: normal color Extrem: General: pedal edema Other: bilateral lower extremity edema extending to the thigh Psych: Mental Status: mental status grossly normal Affect: normal affect Objective Data Vital Signs Vital Signs: Vital Signs - 24 hr 06/10/24 12:00 06/10/24 12:30 06/10/24 14:00 Temperature 36.6 C Pulse Rate 59 L 59 L 60 Respiratory Rate 22 H Blood Pressure 115/40 L Pulse Oximetry 91 Oxygen Delivery Oxygen Flow Rate Fraction of Inspired Oxygen 06/10/24 16:00 06/10/24 16:30 06/10/24 16:30 Temperature 36.6 C Pulse Rate 69 60 60 Respiratory Rate 22 H 22 H Blood Pressure 105/40 L Pulse Oximetry 99 99 Oxygen Delivery Nasal Cannula Oxygen Flow Rate 2 Fraction of Inspired Oxygen 06/10/24 20:00 06/10/24 20:00 06/10/24 20:00 Temperature 36.6 C Pulse Rate 60 103 H Respiratory Rate 20 Blood Pressure 108/43 L Pulse Oximetry 99 99 Oxygen Delivery BiPAP Oxygen Flow Rate Fraction of Inspired Oxygen 06/10/24 21:00 06/10/24 21:00 06/10/24 22:00 Temperature Pulse Rate 60 63 Respiratory Rate 27 H Blood Pressure Pulse Oximetry 93 93 Oxygen Delivery BiPAP BiPAP Oxygen Flow Rate Fraction of Inspired Oxygen 06/10/24 23:25 06/10/24 23:57 06/11/24 00:00 Temperature 36.4 C Pulse Rate 60 66 Respiratory Rate 23 H Blood Pressure 113/46 L Pulse Oximetry 100 Oxygen Delivery BiPAP Oxygen Flow Rate Fraction of Inspired Oxygen 06/11/24 02:00 06/11/24 02:28 06/11/24 03:43 Temperature Pulse Rate 62 Respiratory Rate 25 H Blood Pressure Pulse Oximetry 93 Oxygen Delivery BiPAP BiPAP Oxygen Flow Rate Fraction of Inspired Oxygen 06/11/24 04:00 06/11/24 04:00 06/11/24 04:00 Temperature 36.1 C L Pulse Rate 67 61 Respiratory Rate 16 Blood Pressure 114/45 L Pulse Oximetry 100 100 Oxygen Delivery Nasal Cannula Oxygen Flow Rate 2 Fraction of Inspired Oxygen 06/11/24 08:00 06/11/24 08:00 06/11/24 08:35 Temperature 36.6 C Pulse Rate 119 H 64 Respiratory Rate 24 H Blood Pressure 115/41 L Pulse Oximetry 97 98 Oxygen Delivery Nasal Cannula Oxygen Flow Rate 2 Fraction of Inspired Oxygen 06/11/24 10:00 Temperature Pulse Rate 61 Respiratory Rate Blood Pressure Pulse Oximetry Oxygen Delivery Oxygen Flow Rate Fraction of Inspired Oxygen Intake/Output Intake/Output: Intake & Output 06/08/24 06/09/24 06/10/24 06/11/24 23:59 23:59 23:59 23:59 Intake Total 120 1420 100 Output Total 1300 850 Balance 120 120 -750 Meds/Results Medications: Active Medications Generic Name Dose Route Start Last Admin Trade Name Freq PRN Reason Stop Dose Admin Acetaminophen 650 mg 06/10/24 01:25 Acetaminophen 325 Mg Tablet PO Q4H PRN Mild Pain (1-3) or Fever Dextrose 12.5 gm 06/10/24 01:20 Dextrose 50% 25 Gm/50 Ml Syringe IV PUSH PRN PRN Hypoglycemia Protocol Enoxaparin Sodium 30 mg 06/10/24 09:00 06/11/24 08:18 Enoxaparin 30 Mg/0.3 Ml Syringe SUB-Q 30 mg DAILY WARD Administration Furosemide 40 mg 06/10/24 09:00 06/11/24 08:18 Furosemide Inj 40 Mg/4 Ml Vial IV PUSH 40 mg BID WARD Administration Glucagon 1 mg 06/10/24 01:20 Glucagon For Inj 1 Mg Vial IM PRN PRN Hypoglycemia Protocol Glucose 15 gm 06/10/24 01:20 Glucose Oral Gel 15 Gm Of Glucse In 37.5 Gm Tube PO PRN PRN Hypoglycemia Protocol Doxycycline Hyclate 100 mg in 100 mls @ 100 mls/hr 06/10/24 06:00 06/11/24 07:00 Vibramycin 100 Mg/Ns 100 Ml IVPB Infused Q12H WARD Infusion Cefepime HCl 2 gm in 50 mls @ 100 mls/hr 06/10/24 12:00 06/11/24 11:37 Maxipime 2 Gm/Ns 50 Ml IVPB 100 mls/hr Q24H WARD Administration Dextrose 1,000 mls @ 100 mls/hr 06/10/24 01:20 Dextrose 5% 1,000 Ml IVPB PRN PRN Hypoglycemia Protocol Insulin Aspart 3 - 6 units 06/10/24 13:20 06/11/24 08:16 Insulin Aspart (*Bkc) 100 Units/Ml SUB-Q 3 units ACHS WARD Administration Protocol Perflutren Lipid Microsphere 0 ml 06/10/24 07:45 Perflutren Lipid Microspheres 1.5 Ml Vial Diluted To 10 Ml Total Volume IV PUSH 06/13/24 07:45 ONCE PRN adequate visualization Protocol Radiology Results: ITS Impressions Chest X-Ray 06/09/24 09:14 IMPRESSION: 1. Airspace opacities in the mid and lower lung zones, consistent with atelectasis versus pneumonia. 2. Small pleural effusions. 3. Cardiomegaly. Labs Labs: Laboratory Results - last 24 hr 06/10/24 06/10/24 06/10/24 13:00 15:58 19:33 WBC RBC Hgb Hct MCV MCH MCHC RDW Plt Count MPV Immature Gran % (Auto) Neut % (Auto) Lymph % (Auto) [place] % (Auto) Eos % (Auto) Baso % (Auto) Lymph # (Auto) [place] # (Auto) Eos # (Auto) Baso # (Auto) Abs Immat Gran (auto) Absolute Neuts (auto) Absolute Nucleated RBC Nucleated RBC % Sodium Potassium Chloride Carbon Dioxide Anion Gap BUN Creatinine Estim Creat Clear Calc Estimated GFR Glucose POC Capillary Glucose 275 H 171 H 193 H Calcium 06/11/24 06/11/24 03:35 07:42 WBC 4.5 RBC 3.06 L Hgb 9.3 L Hct 30.2 L MCV 98.7 MCH 30.4 MCHC 30.8 L RDW 14.7 H Plt Count 105 L MPV 10.1 Immature Gran % (Auto) 0.2 Neut % (Auto) 84.4 H Lymph % (Auto) 9.6 L [place] % (Auto) 5.1 Eos % (Auto) 0.7 Baso % (Auto) 0.0 L Lymph # (Auto) 0.43 L [place] # (Auto) 0.2 Eos # (Auto) 0.0 Baso # (Auto) 0.0 Abs Immat Gran (auto) 0.01 Absolute Neuts (auto) 3.8 Absolute Nucleated RBC 0.000 Nucleated RBC % 0.0 Sodium 134 L Potassium 4.5 Chloride 96 L Carbon Dioxide 29 Anion Gap 9 BUN 101 H Creatinine 1.82 H Estim Creat Clear Calc 27 Estimated GFR 36 L Glucose 215 H POC Capillary Glucose 211 H Calcium 8.6 Quality VTE Prophylaxis VTE prophylaxis: mechanical ordered and pharmacologic ordered
--- NOTE | 2024-06-11 12:18 | P.PNIM_ITS ---
Progress Note: A&P Assessment and Plan (1) Acute respiratory failure with hypercapnia: Code(s): J96.02 - Acute respiratory failure with hypercapnia Status: Acute Assessment and Plan: With pneumonia Continue cefepime and doxycycline Blood cultures pending DuoNebs (2) CHF exacerbation: Code(s): I50.9 - Heart failure, unspecified Status: Acute Assessment and Plan: Discontinue Lasix 40 mg IV b.i.d. Continue home dose torsemide 20 mg p.o. b.i.d. Continue home dose metoprolol succinate 12.5 mg p.o. q.d. Fluid restriction 1600 Left ventricular ejection fraction 40-45% (3) DM2 (diabetes mellitus, type 2): Code(s): E11.9 - Type 2 diabetes mellitus without complications Status: Chronic Assessment and Plan: NPO while BiPAP dependent Patient will need a diabetic diet Accu-Cheks q.6 hours SSI (4) Chronic renal failure, stage 3 (moderate): Code(s): N18.30 - Chronic kidney disease, stage 3 unspecified Status: Acute Assessment and Plan: Daily BMP Avoid nephrotoxic medications will receiving high-dose Lasix CKD 4 (5) Chronic respiratory failure with hypoxia: Code(s): J96.11 - Chronic respiratory failure with hypoxia Status: Chronic Assessment and Plan: 2 L nasal cannula baseline L Plan Medications were reviewed from [place] on [place] 30 with torsemide 20 mg p.o. b.i.d. and metoprolol 12.5 mg p.o. q.d.. Advised to follow-up with the primary care physician for his CKD stage 4 and heart failure. Subjective Date/time seen: 06/11/24 12:18 Interval history: 84-year-old male with a past medical history of CAD(s/p CABG 2004,PCI 2005), HFrEF (EF 45-50% 05/2024), s/p PATTERN MARKER and ICD,CKD4, HTN, COPD(2L) ,AFUA,CVA,T2DM,A.Fib, (s/p Bio AVR 2013),rib fracture(2023), and urothelial ca. patient was [place] on [place]. Patient was initially admitted in the ICU for noninvasive positive pressure ventilation. Where he was treated for respiratory distress with a BiPAP , Lasix, metolazone, steroids and antibiotics. Later his code status has been changed from full code to DNR after discussing with with him and his . In regards to heart failure medications patient was discharged with torsemide 20 mg b.i.d. and metoprolol succinate 12.5 mg p.o. q.d. Discussed with cardiology team and will discontinue Lasix and continue torsemide 20 mg p.o. b.i.d. and metoprolol 12.5 mg p.o. q.d. Review of Systems Review of Systems: 12 systems were reviewed and are negativ e except for as per HPI. ROS unobtainable: Yes unobtainable due to medical condition Exam Narrative: General: Chronically ill appearing, appears stated age. HEENT: normocephalic, atraumatic. Mucous membranes moist. EOMI, PERRLA, bilateral sclera anicteric, no conjunctival injection. Neck supple without JVD, lymphadenopathy, or bruit. Respiratory: Course to ascultation bilaterally. On BiPAP Cardiovascular: Regular rate and rhythm, normal S1-S2 upon ascultation. Murmur Abdomen: Soft, round, no pulsatile masses, nondistended and nontender. No rebound, no guarding. No CVA tenderness, no hepatosplenomegaly. Bowel sounds present to all four quadrants. No high pitch or tinkling sounds, resonant to percussion. Extremities: No cyanosis, clubbing, or edema present. Pulses are palpable 2/2. Active ROM to all four extremities. Neuro: Alert and orientated x 4. PERRLA. Cranial nerves 2-12 intact without focal deficit. Skin: Warm, dry, and intact, without rash, erythema, or lesion. Psych: pleasant, cooperative, normal speech, normal affect, no hallucinations, no dysarthia Objective Data Vital Signs Vital Signs: Vital Signs - 24 hr 06/10/24 12:30 06/10/24 14:00 06/10/24 16:00 Temperature 97.9 F Pulse Rate 59 L 60 69 Respiratory Rate 22 H Blood Pressure 105/40 L Pulse Oximetry 99 Oxygen Delivery Oxygen Flow Rate Fraction of Inspired Oxygen 06/10/24 16:30 06/10/24 16:30 06/10/24 20:00 Temperature 97.9 F Pulse Rate 60 60 60 Respiratory Rate 22 H 20 Blood Pressure 108/43 L Pulse Oximetry 99 99 Oxygen Delivery Nasal Cannula Oxygen Flow Rate 2 Fraction of Inspired Oxygen 06/10/24 20:00 06/10/24 20:00 06/10/24 21:00 Temperature Pulse Rate 103 H 60 Respiratory Rate 27 H Blood Pressure Pulse Oximetry 99 93 Oxygen Delivery BiPAP BiPAP Oxygen Flow Rate Fraction of Inspired Oxygen 06/10/24 21:00 06/10/24 22:00 06/10/24 23:25 Temperature 97.6 F Pulse Rate 63 60 Respiratory Rate 23 H Blood Pressure 113/46 L Pulse Oximetry 93 100 Oxygen Delivery BiPAP Oxygen Flow Rate Fraction of Inspired Oxygen 06/10/24 23:57 06/11/24 00:00 06/11/24 02:00 Temperature Pulse Rate 66 62 Respiratory Rate Blood Pressure Pulse Oximetry Oxygen Delivery BiPAP Oxygen Flow Rate Fraction of Inspired Oxygen 06/11/24 02:28 06/11/24 03:43 06/11/24 04:00 Temperature 97 F L Pulse Rate 67 Respiratory Rate 25 H 16 Blood Pressure 114/45 L Pulse Oximetry 93 100 Oxygen Delivery BiPAP BiPAP Oxygen Flow Rate Fraction of Inspired Oxygen 06/11/24 04:00 06/11/24 04:00 06/11/24 08:00 Temperature 97.8 F Pulse Rate 61 119 H Respiratory Rate 24 H Blood Pressure 115/41 L Pulse Oximetry 100 97 Oxygen Delivery Nasal Cannula Oxygen Flow Rate 2 Fraction of Inspired Oxygen 06/11/24 08:00 06/11/24 08:35 06/11/24 10:00 Temperature Pulse Rate 64 61 Respiratory Rate Blood Pressure Pulse Oximetry 98 Oxygen Delivery Nasal Cannula Oxygen Flow Rate 2 Fraction of Inspired Oxygen 06/11/24 12:00 Temperature 98 F Pulse Rate 64 Respiratory Rate 24 H Blood Pressure 110/47 L Pulse Oximetry 100 Oxygen Delivery Oxygen Flow Rate Fraction of Inspired Oxygen Intake/Output Intake/Output: Intake & Output 06/08/24 06/09/24 06/10/24 06/11/24 23:59 23:59 23:59 23:59 Intake Total 120 1420 100 Output Total 1300 1750 Balance 120 120 -1650 Meds/Results Medications: Active Medications Generic Name Dose Route Start Last Admin Trade Name Freq PRN Reason Stop Dose Admin Acetaminophen 650 mg 06/10/24 01:25 Acetaminophen 325 Mg Tablet PO Q4H PRN Mild Pain (1-3) or Fever Albuterol 2 puff 06/11/24 12:15 Albuterol Sulfate (*Sp) Aerosol 1 Puff INHALATION QID PRN Shortness Of Breath Or Wheezing Dextrose 12.5 gm 06/10/24 01:20 Dextrose 50% 25 Gm/50 Ml Syringe IV PUSH PRN PRN Hypoglycemia Protocol Enoxaparin Sodium 30 mg 06/10/24 09:00 06/11/24 08:18 Enoxaparin 30 Mg/0.3 Ml Syringe SUB-Q 30 mg DAILY WARD Administration Finasteride 5 mg 06/12/24 09:00 Finasteride 5 Mg Tablet PO DAILY WARD Folic Acid 1 mg 06/12/24 09:00 Folic Acid 1 Mg Tablet PO DAILY WARD Furosemide 40 mg 06/10/24 09:00 06/11/24 08:18 Furosemide Inj 40 Mg/4 Ml Vial IV PUSH 40 mg BID WARD Administration Glucagon 1 mg 06/10/24 01:20 Glucagon For Inj 1 Mg Vial IM PRN PRN Hypoglycemia Protocol Glucose 15 gm 06/10/24 01:20 Glucose Oral Gel 15 Gm Of Glucse In 37.5 Gm Tube PO PRN PRN Hypoglycemia Protocol Doxycycline Hyclate 100 mg in 100 mls @ 100 mls/hr 06/10/24 06:00 06/11/24 07:00 Vibramycin 100 Mg/Ns 100 Ml IVPB Infused Q12H WARD Infusion Cefepime HCl 2 gm in 50 mls @ 100 mls/hr 06/10/24 12:00 06/11/24 11:37 Maxipime 2 Gm/Ns 50 Ml IVPB 100 mls/hr Q24H WARD Administration Dextrose 1,000 mls @ 100 mls/hr 06/10/24 01:20 Dextrose 5% 1,000 Ml IVPB PRN PRN Hypoglycemia Protocol Insulin Aspart 3 - 6 units 06/10/24 13:20 06/11/24 08:16 Insulin Aspart (*Bkc) 100 Units/Ml SUB-Q 3 units ACHS WARD Administration Protocol Metoprolol Succinate 25 mg 06/12/24 09:00 Metoprolol Succinate Ext Rel 25 Mg Tabcr PO QAM WARD Non-Formulary Medication 1 drop 06/11/24 12:15 Atropine Sulfate (Pf) RIGHT EYE 07/11/24 12:14 .Q12HR WARD Non-Formulary Medication 2 inhalation 06/11/24 12:15 Nabjlvrjmh-Vjttwkfa-Ouddpbhqtb [Breztri Aerosphere] INHALATION 07/11/24 12:14 .Q12HR WARD Non-Formulary Medication 325 mg 06/11/24 17:00 Ferrous Sulfate PO 07/11/24 16:59 BID WARD Non-Formulary Medication 400 mg 06/11/24 12:15 Guaifenesin [G-Fenesin] PO Q4H PRN cough Non-Formulary Medication 1 drop 06/11/24 12:15 Prednisolone Acetate (Pf) RIGHT EYE 07/11/24 12:14 Q12H WARD Pantoprazole Sodium 40 mg 06/12/24 09:00 Pantoprazole 40 Mg Tablet PO QAM WARD Perflutren Lipid Microsphere 0 ml 06/10/24 07:45 Perflutren Lipid Microspheres 1.5 Ml Vial Diluted To 10 Ml Total Volume IV PUSH 06/13/24 07:45 ONCE PRN adequate visualization Protocol Pregabalin 25 mg 06/12/24 09:00 Pregabalin (*Crx) 25 Mg Capsule PO DAILY [facility] Tamsulosin HCl 0.4 mg 06/11/24 12:15 Tamsulosin Hcl 0.4 Mg Capsule PO .pm WARD Torsemide 20 mg 06/11/24 17:00 Torsemide 20 Mg Tablet PO BID [facility] Radiology Results: ITS Impressions Chest X-Ray 06/09/24 09:14 IMPRESSION: 1. Airspace opacities in the mid and lower lung zones, consistent with atelectasis versus pneumonia. 2. Small pleural effusions. 3. Cardiomegaly. Labs Labs: Laboratory Results - last 24 hr 06/10/24 06/10/24 06/10/24 13:00 15:58 19:33 WBC RBC Hgb Hct MCV MCH MCHC RDW Plt Count MPV Immature Gran % (Auto) Neut % (Auto) Lymph % (Auto) [place] % (Auto) Eos % (Auto) Baso % (Auto) Lymph # (Auto) [place] # (Auto) Eos # (Auto) Baso # (Auto) Abs Immat Gran (auto) Absolute Neuts (auto) Absolute Nucleated RBC Nucleated RBC % Sodium Potassium Chloride Carbon Dioxide Anion Gap BUN Creatinine Estim Creat Clear Calc Estimated GFR Glucose POC Capillary Glucose 275 H 171 H 193 H Calcium 06/11/24 06/11/24 03:35 07:42 WBC 4.5 RBC 3.06 L Hgb 9.3 L Hct 30.2 L MCV 98.7 MCH 30.4 MCHC 30.8 L RDW 14.7 H Plt Count 105 L MPV 10.1 Immature Gran % (Auto) 0.2 Neut % (Auto) 84.4 H Lymph % (Auto) 9.6 L [place] % (Auto) 5.1 Eos % (Auto) 0.7 Baso % (Auto) 0.0 L Lymph # (Auto) 0.43 L [place] # (Auto) 0.2 Eos # (Auto) 0.0 Baso # (Auto) 0.0 Abs Immat Gran (auto) 0.01 Absolute Neuts (auto) 3.8 Absolute Nucleated RBC 0.000 Nucleated RBC % 0.0 Sodium 134 L Potassium 4.5 Chloride 96 L Carbon Dioxide 29 Anion Gap 9 BUN 101 H Creatinine 1.82 H Estim Creat Clear Calc 27 Estimated GFR 36 L Glucose 215 H POC Capillary Glucose 211 H Calcium 8.6 Quality VTE Prophylaxis VTE prophylaxis: mechanical ordered and pharmacologic ordered Hospitalist MIPS Advance Care Plan I have confirmed that the patient's Advanced Care Plan is present, code status is documented, or surrogate decision maker is listed in patient medical record.: Yes Medication Reconciliation I have utilized all available resources to obtain, update and review the patients current medications (includes all prescriptions, OTC, herbals, cannabis, and nutritional supplements).: Yes
[2024-06-11 12:32] LABS: Glucose Point of Care 204 mg/dl (65-105)
[2024-06-11] MEDS: FOLIC ACID 1 MG TABLET PO (13:12)
[2024-06-11] MEDS: METOPROLOL SUCCINATE EXT REL 12.5 MG TABCR PO (13:13)
[2024-06-11] MEDS: PANTOPRAZOLE 40 MG TABLET PO (13:13)
[2024-06-11] MEDS: FINASTERIDE 5 MG TABLET PO (13:13)
[2024-06-11 16:19] LABS: Glucose Point of Care 174 mg/dl (65-105)
[2024-06-11] MEDS: FERROUS SULFATE 325 MG TABLET DR BY MOUTH (16:36)
[2024-06-11] MEDS: BUMETANIDE INJ 1 MG/4 ML VIAL IV PUSH (16:36)
[2024-06-11] MEDS: TAMSULOSIN HCL 0.4 MG CAPSULE PO (17:22)
[2024-06-11 19:54] LABS: Glucose Point of Care 245 mg/dl (65-105)
[2024-06-11] MEDS: PREGABALIN (*CRX) 25 MG CAPSULE PO (20:49)
[2024-06-11] MEDS: prednisoLONE ACETATE 1% OPHTH 5 ML 1 DROP RIGHT EYE (20:49)
[2024-06-11] MEDS: ATROPINE SULFATE 1% OPHTH SOLN 5 ML BOTTLE 1 DROP EACH EYE (20:49)
--- NOTE | 2024-06-11 21:31 | P.RRN_ITS ---
Critical Care Event Note Summary Code activated: No Narrative: Rapid response was called around 20:30 when nursing staff was bathing the patient. Telemetry suddenly demonstrated irregular tachycardic rhythm with rates ranging between 160s to 220s. Patient was asymptomatic. When I arrived at the patient's bedside and palpated the patient's pulse although his telemetry was reading in the 160s his telemetry was a poor baseline and pulse was palpated in the 60s. The patient's blood pressures were stable. Patient was completely asymptomatic. Stat EKG was performed which demonstrated a paced rhythm in the 60s. Patient's monitoring and evaluation advisor was again reviewed it was found of that he was not on a pacer settings. His telemetry leads were exchanged and with reprogramming of the monitoring and evaluation advisor the patient's heart rate was appropriately picked up in the 60s. On exam the patient was wheezing a slightly the but in no respiratory distress. He denies any chest pain he was not diaphoretic. He had some bruising across his abdomen from DVT prophylaxis administration. Abdomen was distended with obvious hernia that was easily reducible. Hernia was more prominent with position changes. Patient normoactive bowel sounds in abdomen was otherwise soft. Had 1+ pulses bilateral radial. Had 2-3 second cap refill. 30 minute spent in critical care activities. Due to a high probability of clinically significant, life threatening deterioration, the patient required my highest level of preparedness to intervene emergently and I personally spent this critical care time directly and personally managing the patient. This critical care time included obtaining a history; examining the patient; pulse oximetry; ordering and review of studies; arranging urgent treatment with development of a management plan; evaluation of patient's response to treatment; frequent reassessment; and discussions with other providers. It was exclusive of separately billable procedures and treating other patients and teaching time. Please see Assessment and Plan section and the rest of the note for further information on patient assessment and treatment. Critical care time: 30 - 74 mins
[2024-06-12] VITALS (18 sets, daily range): BP systolic 99–111; BP diastolic 39–51; PULSE 60–75; RESP 16–26; TEMP 36.1–36.7; O2SAT 94–100
[2024-06-12 04:38] LABS: Hematocrit 33.4 % (42.0-52.0); Hemoglobin 10.4 g/dL (14.0-18.0); Immature Platelet Fraction Pct 2.4 % (0.9-11.2); Mean Corpuscular HGB Conc 31.1 g/dl (32-36); Mean Corpuscular Hemoglobin 30.8 pg (26-34); Mean Corpuscular Volume 98.8 fl (80-100); Mean Platelet Volume 9.9 fl (7.4-10.4); Platelet Count Result 89 k/mm3 (150-375); Red Blood Count 3.38 M/mm3 (4.6-6.20); Red Cell Distribution Width 14.4 % (11.5-14.5); White Blood Count 3.2 K/mm3 (4.5-10.0)
[2024-06-12] MEDS: DOXYCYCLINE 100 MG/NS 100 ML 100 MG/100 ML BAG IVPB (05:10)
[2024-06-12 05:22] LABS: Alanine Aminotransferase 11 U/L (6-50); Albumin Level 3.5 g/dL (3.5-5.1); Alkaline Phosphatase 59 U/L (38-126); Anion Gap 10 mmol/L (4-12); Aspartate Amino Transferase 17 U/L (17-59); Bilirubin,Total 0.9 mg/dL (0.2-1.3); Calcium 8.5 mg/dL (8.4-10.2); Carbon Dioxide 32 mmol/L (22-30); Chloride 94 mmol/L (98-107); Glucose 216 mg/dL (65-110); Sodium 136 mmol/L (137-145)
[2024-06-12 05:29] LABS: Blood Urea Nitrogen 94 mg/dL (9-20); Estimated CRCL calculation 31 ml/min; Estimated Glomerular Filt Rate 43
[2024-06-12 07:21] LABS: Glucose Point of Care 227 mg/dl (65-105)
[2024-06-12] MEDS: FLUTICASONE/UMECLIDIN/VILANTER 100-62.5-25 MCG ELLIPTA 1 PUFF INHALATION (08:49)
[2024-06-12] MEDS: FINASTERIDE 5 MG TABLET PO (09:15)
[2024-06-12] MEDS: METOPROLOL SUCCINATE EXT REL 12.5 MG TABCR PO (09:15)
[2024-06-12] MEDS: PANTOPRAZOLE 40 MG TABLET PO (09:15)
[2024-06-12] MEDS: FERROUS SULFATE 325 MG TABLET DR BY MOUTH ×2 (09:15→17:08)
[2024-06-12] MEDS: BUMETANIDE INJ 1 MG/4 ML VIAL IV PUSH ×2 (09:15→17:05)
[2024-06-12] MEDS: INSULIN ASPART (*BKC) 100 UNITS/ML SUB-Q ×4 (09:15→21:06)
[2024-06-12] MEDS: FOLIC ACID 1 MG TABLET PO (09:15)
[2024-06-12] MEDS: prednisoLONE ACETATE 1% OPHTH 5 ML 1 DROP RIGHT EYE ×2 (09:16→20:33)
[2024-06-12] MEDS: ATROPINE SULFATE 1% OPHTH SOLN 5 ML BOTTLE 1 DROP EACH EYE ×2 (09:16→20:34)
--- NOTE | 2024-06-12 10:41 | PM.PNCARD ---
Progress Note: A&P Assessment and Plan (1) CHF (congestive heart failure): Code(s): I50.9 - Heart failure, unspecified Status: Acute Plan 1. Acute on chronic congestive heart failure. 2. Acute hypercarbic respiratory failure 3. CHRISTIAN vs CHRISTIAN on CKD vs CKD 4. CAD s/p CABG 5. S/p bioprosthetic aortic valve 6. S/p biventricular ICD 7. COPD 8. Hypertension 9. Hyperlipidemia 10. Type 2 diabetes mellitus PLAN: -Continue IV bumex 1mg b.i.d. -Echo showed mildly reduced EF, 40-45%, pulmonary HTN with PASP 66 mmHg -Unclear what his baseline renal function is (last labs we have are from 2020). Monitor renal function closely with IV diuresis. If renal function worsens, consider Nephrology consultation. -Management of acute hypercarbic respiratory failure. - states she told another staff member to change his code status to DNR. Today she is interested in discussing hospice. Subjective Date/time seen: 06/12/24 10:41 Interval history: Cardiology follow up visit He does not feel any better today. On BiPAP currently. Edema is still significant. 06/12/2024: He is off BiPAP this morning and sleeping comfortably. Lower extremity edema slightly improved. Review of Systems Review of Systems: All systems reviewed & are unremarkable except as noted in HPI and below (HPI) Exam Const: General: no acute distress HENMT: Mouth: Yes moist mucous membranes Eyes: General: appearance normal, both eyes and all related structures Sclera: sclerae normal Neck: Neck: JVD Resp: Effort & Inspection: normal respiratory effort Auscultation: diminished lung sounds Cardio: Rate: regular rate Rhythm: regular rhythm Heart sounds: no murmurs Other: + Bilateral lower extremity edema Urinary Catheter: Urinary Catheter: patent and draining Skin: General skin exam: normal color Extrem: General: pedal edema Psych: Affect: normal affect Objective Data Vital Signs Vital Signs: Vital Signs - 24 hr 06/11/24 12:00 06/11/24 12:40 06/11/24 12:40 Temperature 36.6 C Pulse Rate 64 63 Respiratory Rate 24 H Blood Pressure 110/47 L Pulse Oximetry 100 100 Oxygen Delivery BiPAP Oxygen Flow Rate Fraction of Inspired Oxygen 06/11/24 13:13 06/11/24 14:00 06/11/24 15:03 Temperature Pulse Rate 66 60 Respiratory Rate Blood Pressure Pulse Oximetry 95 Oxygen Delivery Nasal Cannula Oxygen Flow Rate 2 Fraction of Inspired Oxygen 06/11/24 16:00 06/11/24 16:45 06/11/24 16:45 Temperature 36.3 C L Pulse Rate 61 63 Respiratory Rate 23 H Blood Pressure 104/50 L Pulse Oximetry 100 97 Oxygen Delivery Nasal Cannula Oxygen Flow Rate 2 Fraction of Inspired Oxygen 06/11/24 18:00 06/11/24 19:55 06/11/24 20:00 Temperature 36.2 C L Pulse Rate 60 64 Respiratory Rate 28 H Blood Pressure 115/49 L Pulse Oximetry 99 99 Oxygen Delivery BiPAP Oxygen Flow Rate Fraction of Inspired Oxygen 25 06/11/24 20:00 06/11/24 22:00 06/12/24 00:00 Temperature 36.4 C L Pulse Rate 60 63 62 Respiratory Rate 23 H Blood Pressure 108/51 L Pulse Oximetry 100 Oxygen Delivery Oxygen Flow Rate Fraction of Inspired Oxygen 06/12/24 00:00 06/12/24 00:00 06/12/24 02:00 Temperature Pulse Rate 64 64 Respiratory Rate Blood Pressure Pulse Oximetry 99 Oxygen Delivery BiPAP Oxygen Flow Rate Fraction of Inspired Oxygen 25 06/12/24 04:00 06/12/24 04:00 06/12/24 04:00 Temperature 36.1 C L Pulse Rate 66 60 Respiratory Rate 26 H Blood Pressure 108/40 L Pulse Oximetry 100 100 Oxygen Delivery BiPAP Oxygen Flow Rate Fraction of Inspired Oxygen 06/12/24 06:00 06/12/24 07:55 06/12/24 08:00 Temperature 36.4 C Pulse Rate 75 60 Respiratory Rate 20 Blood Pressure 107/47 L Pulse Oximetry 100 100 Oxygen Delivery Nasal Cannula Oxygen Flow Rate 2 Fraction of Inspired Oxygen 06/12/24 08:00 06/12/24 08:52 06/12/24 08:52 Temperature Pulse Rate 60 63 63 Respiratory Rate 18 18 Blood Pressure Pulse Oximetry 100 Oxygen Delivery Nasal Cannula Oxygen Flow Rate 2 Fraction of Inspired Oxygen 06/12/24 09:15 06/12/24 10:00 Temperature Pulse Rate 72 69 Respiratory Rate Blood Pressure Pulse Oximetry Oxygen Delivery Oxygen Flow Rate Fraction of Inspired Oxygen Intake/Output Intake/Output: Intake & Output 06/09/24 06/10/24 06/11/24 06/12/24 23:59 23:59 23:59 23:59 Intake Total 120 1420 430 100 Output Total 1300 3820 900 Balance 120 120 [id number] Meds/Results Medications: Active Medications Generic Name Dose Route Start Last Admin Trade Name Freq PRN Reason Stop Dose Admin Acetaminophen 650 mg 06/10/24 01:25 Acetaminophen 325 Mg Tablet PO Q4H PRN Mild Pain (1-3) or Fever Albuterol 2 puff 06/11/24 12:15 Albuterol Sulfate (*Sp) Aerosol 1 Puff INHALATION QID PRN Shortness Of Breath Or Wheezing Atropine Sulfate 1 drop 06/11/24 21:00 06/12/24 09:16 Atropine Sulfate 1% Ophth Soln 5 Ml Bottle EACH EYE 1 drop Q12HR WARD Administration Bumetanide 1 mg 06/11/24 17:00 06/12/24 09:15 Bumetanide Inj 1 Mg/4 Ml Vial IV PUSH 1 mg BID WARD Administration Dextrose 12.5 gm 06/10/24 01:20 Dextrose 50% 25 Gm/50 Ml Syringe IV PUSH PRN PRN Hypoglycemia Protocol Enoxaparin Sodium 30 mg 06/10/24 09:00 06/11/24 08:18 Enoxaparin 30 Mg/0.3 Ml Syringe SUB-Q 30 mg DAILY WARD Administration Ferrous Sulfate 325 mg 06/11/24 17:00 06/12/24 09:15 Ferrous Sulfate [address] BY MOUTH 325 mg BID WARD Administration Finasteride 5 mg 06/11/24 12:30 06/12/24 09:15 Finasteride 5 Mg Tablet PO 5 mg DAILY WARD Administration Fluticasone/Umeclidinium/Vilanterol 1 puff 06/11/24 12:35 06/12/24 10:16 Fluticasone/Umeclidin/Vilanter 100-62.5-25 Mcg Ellipta INHALATION Not Given DAILYRT WARD Folic Acid 1 mg 06/11/24 12:30 06/12/24 09:15 Folic Acid 1 Mg Tablet PO 1 mg DAILY WARD Administration Glucagon 1 mg 06/10/24 01:20 Glucagon For Inj 1 Mg Vial IM PRN PRN Hypoglycemia Protocol Glucose 15 gm 06/10/24 01:20 Glucose Oral Gel 15 Gm Of Glucse In 37.5 Gm Tube PO PRN PRN Hypoglycemia Protocol Guaifenesin 1,200 mg 06/11/24 12:30 Guaifenesin 12 Hr 600 Mg Tabcr PO Q12HR PRN Cough Doxycycline Hyclate 100 mg in 100 mls @ 100 mls/hr 06/10/24 06:00 06/12/24 06:28 Vibramycin 100 Mg/Ns 100 Ml IVPB Infused Q12H WARD Infusion Cefepime HCl 2 gm in 50 mls @ 100 mls/hr 06/10/24 12:00 06/11/24 12:07 Maxipime 2 Gm/Ns 50 Ml IVPB Infused Q24H WARD Infusion Dextrose 1,000 mls @ 100 mls/hr 06/10/24 01:20 Dextrose 5% 1,000 Ml IVPB PRN PRN Hypoglycemia Protocol Insulin Aspart 3 - 6 units 06/12/24 08:00 06/12/24 09:15 Insulin Aspart (*Bkc) 100 Units/Ml SUB-Q 3 units WMHS WARD Administration Protocol Metoprolol Succinate 12.5 mg 06/11/24 12:35 06/12/24 09:15 Metoprolol Succinate Ext Rel 12.5 Mg Tabcr PO 12.5 mg QAM WARD Administration Miscellaneous Information 1 each 06/12/24 00:[address] 89 Today. Do You Want To Hold Lovenox? XX 07/12/24 00:00 CLARIFY WARD Pantoprazole Sodium 40 mg 06/11/24 12:30 06/12/24 09:15 Pantoprazole 40 Mg Tablet PO 40 mg QAM WARD Administration Perflutren Lipid Microsphere 0 ml 06/10/24 07:45 Perflutren Lipid Microspheres 1.5 Ml Vial Diluted To 10 Ml Total Volume IV PUSH 06/13/24 07:45 ONCE PRN adequate visualization Protocol Prednisolone Acetate 1 drop 06/11/24 21:00 06/12/24 09:16 Prednisolone Acetate 1% Ophth 5 Ml RIGHT EYE 1 drop Q12HR WARD Administration Pregabalin 25 mg 06/11/24 21:00 06/11/24 20:49 Pregabalin (*Crx) 25 Mg Capsule PO 25 mg HS WARD Administration Tamsulosin HCl 0.4 mg 06/11/24 18:00 06/11/24 17:22 Tamsulosin Hcl 0.4 Mg Capsule PO 0.4 mg QPM WARD Administration Radiology Results: ITS Impressions Chest X-Ray 06/09/24 09:14 IMPRESSION: 1. Airspace opacities in the mid and lower lung zones, consistent with atelectasis versus pneumonia. 2. Small pleural effusions. 3. Cardiomegaly. Labs Labs: Laboratory Results - last 24 hr 06/11/24 06/11/24 06/11/24 11:18 15:52 19:44 WBC RBC Hgb Hct MCV MCH MCHC RDW Plt Count MPV % Immature Plt Fraction Sodium Potassium Chloride Carbon Dioxide Anion Gap BUN Creatinine Estim Creat Clear Calc Estimated GFR Glucose POC Capillary Glucose 204 H 174 H 245 H Calcium Total Bilirubin AST ALT Alkaline Phosphatase Total Protein Albumin 06/12/24 06/12/24 03:56 07:18 WBC 3.2 L RBC 3.38 L Hgb 10.4 L Hct 33.4 L MCV 98.8 MCH 30.8 MCHC 31.1 L RDW 14.4 Plt Count 89 L MPV 9.9 % Immature Plt Fraction 2.4 Sodium 136 L Potassium 4.0 Chloride 94 L Carbon Dioxide 32 H Anion Gap 10 BUN 94 H Creatinine 1.56 H Estim Creat Clear Calc 31 Estimated GFR 43 L Glucose 216 H POC Capillary Glucose 227 H Calcium 8.5 Total Bilirubin 0.9 AST 17 ALT 11 Alkaline Phosphatase 59 Total Protein 6.0 L Albumin 3.5 Quality VTE Prophylaxis VTE prophylaxis: mechanical ordered and pharmacologic ordered
[2024-06-12 11:16] LABS: Glucose Point of Care 229 mg/dl (65-105)
[2024-06-12] MEDS: AMOXICILLIN/CLAVULANATE K 875-125 MG TAB 1 TABLET PO ×2 (13:00→20:32)
[2024-06-12] MEDS: DOXYCYCLINE HYCLATE 100 MG TABLET PO ×2 (13:01→20:32)
[2024-06-12 16:18] LABS: Glucose Point of Care 262 mg/dl (65-105)
[2024-06-12] MEDS: TAMSULOSIN HCL 0.4 MG CAPSULE PO (17:08)
--- NOTE | 2024-06-12 17:47 | P.PNIM_ITS ---
Progress Note: A&P Assessment and Plan (1) Acute respiratory failure with hypercapnia: Code(s): J96.02 - Acute respiratory failure with hypercapnia Status: Acute Assessment and Plan: With pneumonia Continue cefepime and doxycycline Blood cultures pending DuoNebs (2) CHF exacerbation: Code(s): I50.9 - Heart failure, unspecified Status: Acute Assessment and Plan: Discontinue Lasix 40 mg IV b.i.d. Continue home dose torsemide 20 mg p.o. b.i.d. Continue home dose metoprolol succinate 12.5 mg p.o. q.d. Fluid restriction 1600 Left ventricular ejection fraction 40-45% (3) DM2 (diabetes mellitus, type 2): Code(s): E11.9 - Type 2 diabetes mellitus without complications Status: Chronic Assessment and Plan: NPO while BiPAP dependent Patient will need a diabetic diet Accu-Cheks q.6 hours SSI (4) Chronic renal failure, stage 3 (moderate): Code(s): N18.30 - Chronic kidney disease, stage 3 unspecified Status: Acute Assessment and Plan: Daily BMP Avoid nephrotoxic medications will receiving high-dose Lasix CKD 4 (5) Chronic respiratory failure with hypoxia: Code(s): J96.11 - Chronic respiratory failure with hypoxia Status: Chronic Assessment and Plan: 2 L nasal cannula baseline L Plan Medications were reviewed from [place]. patient was discharged from [place] on May 30 with torsemide 20 mg p.o. b.i.d. and metoprolol 12.5 mg p.o. q.d.. Advised to follow-up with the primary care physician for his CKD stage 4 and heart failure. Subjective Date/time seen: 06/12/24 17:47 Interval history: Patient is weak. Hospice was consulted as per family request but now family denies to undergo hospice. Review of Systems Review of Systems: 12 systems were reviewed and are negativ e except for as per HPI. ROS unobtainable: Yes unobtainable due to medical condition Exam Narrative: General: Chronically ill appearing, appears stated age. HEENT: normocephalic, atraumatic. Mucous membranes moist. EOMI, PERRLA, bilateral sclera anicteric, no conjunctival injection. Neck supple without JVD, lymphadenopathy, or bruit. Respiratory: Course to ascultation bilaterally. On BiPAP Cardiovascular: Regular rate and rhythm, normal S1-S2 upon ascultation. Murmur Abdomen: Soft, round, no pulsatile masses, nondistended and nontender. No rebound, no guarding. No CVA tenderness, no hepatosplenomegaly. Bowel sounds present to all four quadrants. No high pitch or tinkling sounds, resonant to percussion. Extremities: No cyanosis, clubbing, or edema present. Pulses are palpable 2/2. Active ROM to all four extremities. Neuro: Alert and orientated x 4. PERRLA. Cranial nerves 2-12 intact without focal deficit. Skin: Warm, dry, and intact, without rash, erythema, or lesion. Psych: pleasant, cooperative, normal speech, normal affect, no hallucinations, no dysarthia Objective Data Vital Signs Vital Signs: Vital Signs - 24 hr 06/11/24 18:00 06/11/24 19:55 06/11/24 20:00 Temperature 97.2 F L Pulse Rate 60 64 Respiratory Rate 28 H Blood Pressure 115/49 L Pulse Oximetry 99 99 Oxygen Delivery BiPAP Oxygen Flow Rate Fraction of Inspired Oxygen 06/11/24 20:00 06/11/24 22:00 06/12/24 00:00 Temperature 97.5 F L Pulse Rate 60 63 62 Respiratory Rate 23 H Blood Pressure 108/51 L Pulse Oximetry 100 Oxygen Delivery Oxygen Flow Rate Fraction of Inspired Oxygen 06/12/24 00:00 06/12/24 00:00 06/12/24 02:00 Temperature Pulse Rate 64 64 Respiratory Rate Blood Pressure Pulse Oximetry 99 Oxygen Delivery BiPAP Oxygen Flow Rate Fraction of Inspired Oxygen 06/12/24 04:00 06/12/24 04:00 06/12/24 04:00 Temperature 97 F L Pulse Rate 66 60 Respiratory Rate 26 H Blood Pressure 108/40 L Pulse Oximetry 100 100 Oxygen Delivery BiPAP Oxygen Flow Rate Fraction of Inspired Oxygen 06/12/24 06:00 06/12/24 07:55 06/12/24 08:00 Temperature 97.6 F Pulse Rate 75 60 Respiratory Rate 20 Blood Pressure 107/47 L Pulse Oximetry 100 100 Oxygen Delivery Nasal Cannula Oxygen Flow Rate 2 Fraction of Inspired Oxygen 06/12/24 08:00 06/12/24 08:52 06/12/24 08:52 Temperature Pulse Rate 60 63 63 Respiratory Rate 18 18 Blood Pressure Pulse Oximetry 100 Oxygen Delivery Nasal Cannula Oxygen Flow Rate 2 Fraction of Inspired Oxygen 06/12/24 09:15 06/12/24 10:00 06/12/24 12:00 Temperature 96.9 F L Pulse Rate 72 69 67 Respiratory Rate 16 Blood Pressure 101/47 L Pulse Oximetry 100 Oxygen Delivery Oxygen Flow Rate Fraction of Inspired Oxygen 06/12/24 12:00 06/12/24 12:00 06/12/24 14:00 Temperature Pulse Rate 63 60 Respiratory Rate Blood Pressure Pulse Oximetry 100 Oxygen Delivery Nasal Cannula Oxygen Flow Rate 2 Fraction of Inspired Oxygen 06/12/24 16:00 Temperature 97.8 F Pulse Rate 63 Respiratory Rate 22 H Blood Pressure 99/47 L Pulse Oximetry 98 Oxygen Delivery Oxygen Flow Rate Fraction of Inspired Oxygen Intake/Output Intake/Output: Intake & Output 06/09/24 06/10/24 06/11/2414/25 23:59 23:59 23:59 23:59 Intake Total 120 1420 430 840 Output Total 1300 3660 900 Balance Meds/Results Medications: Active Medications Generic Name Dose Route Start Last Admin Trade Name Freq PRN Reason Stop Dose Admin Acetaminophen 650 mg 06/10/24 01:25 Acetaminophen 325 Mg Tablet PO Q4H PRN Mild Pain (1-3) or Fever Albuterol 2 puff 06/11/24 12:15 Albuterol Sulfate (*Sp) Aerosol 1 Puff INHALATION QID PRN Shortness Of Breath Or Wheezing Amoxicillin/Clavulanate Potassium 1 tablet 06/12/24 11:55 06/12/24 13:00 Amoxicillin/Clavulanate K 875-125 Mg Tab PO 06/15/24 21:01 1 tablet Q12HR WARD Administration Atropine Sulfate 1 drop 06/11/24 21:00 06/12/24 09:16 Atropine Sulfate 1% Ophth Soln 5 Ml Bottle EACH EYE 1 drop Q12HR WARD Administration Bumetanide 1 mg 06/11/24 17:00 06/12/24 17:05 Bumetanide Inj 1 Mg/4 Ml Vial IV PUSH 1 mg BID WARD Administration Dextrose 12.5 gm 06/10/24 01:20 Dextrose 50% 25 Gm/50 Ml Syringe IV PUSH PRN PRN Hypoglycemia Protocol Doxycycline Hyclate 100 mg 06/12/24 13:00 06/12/24 13:01 Doxycycline Hyclate 100 Mg Tablet PO 06/15/24 21:01 100 mg Q12HR WARD Administration Enoxaparin Sodium 30 mg 06/10/24 09:00 06/12/24 10:46 Enoxaparin 30 Mg/0.3 Ml Syringe SUB-Q Not Given DAILY WARD Ferrous Sulfate 325 mg 06/11/24 17:00 06/12/24 17:08 Ferrous Sulfate [address] BY MOUTH 325 mg BID WARD Administration Finasteride 5 mg 06/11/24 12:30 06/12/24 09:15 Finasteride 5 Mg Tablet PO 5 mg DAILY WARD Administration Fluticasone/Umeclidinium/Vilanterol 1 puff 06/11/24 12:35 06/12/24 10:16 Fluticasone/Umeclidin/Vilanter 100-62.5-25 Mcg Ellipta INHALATION Not Given DAILYRT WARD Folic Acid 1 mg 06/11/24 12:30 06/12/24 09:15 Folic Acid 1 Mg Tablet PO 1 mg DAILY WARD Administration Glucagon 1 mg 06/10/24 01:20 Glucagon For Inj 1 Mg Vial IM PRN PRN Hypoglycemia Protocol Glucose 15 gm 06/10/24 01:20 Glucose Oral Gel 15 Gm Of Glucse In 37.5 Gm Tube PO PRN PRN Hypoglycemia Protocol Guaifenesin 1,200 mg 06/11/24 12:30 Guaifenesin 12 Hr 600 Mg Tabcr PO Q12HR PRN Cough Dextrose 1,000 mls @ 100 mls/hr 06/10/24 01:20 Dextrose 5% 1,000 Ml IVPB PRN PRN Hypoglycemia Protocol Insulin Aspart 3 - 6 units 06/12/24 08:00 06/12/24 17:06 Insulin Aspart (*Bkc) 100 Units/Ml SUB-Q 4 units WMHS WARD Administration Protocol Metoprolol Succinate 12.5 mg 06/11/24 12:35 06/12/24 09:15 Metoprolol Succinate Ext Rel 12.5 Mg Tabcr PO 12.5 mg QAM WARD Administration Pantoprazole Sodium 40 mg 06/11/24 12:30 06/12/24 09:15 Pantoprazole 40 Mg Tablet PO 40 mg QAM WARD Administration Perflutren Lipid Microsphere 0 ml 06/10/24 07:45 Perflutren Lipid Microspheres 1.5 Ml Vial Diluted To 10 Ml Total Volume IV PUSH 06/13/24 07:45 ONCE PRN adequate visualization Protocol Prednisolone Acetate 1 drop 06/11/24 21:00 06/12/24 09:16 Prednisolone Acetate 1% Ophth 5 Ml RIGHT EYE 1 drop Q12HR WARD Administration Pregabalin 25 mg 06/11/24 21:00 06/11/24 20:49 Pregabalin (*Crx) 25 Mg Capsule PO 25 mg HS WARD Administration Tamsulosin HCl 0.4 mg 06/11/24 18:00 06/12/24 17:08 Tamsulosin Hcl 0.4 Mg Capsule PO 0.4 mg QPM WARD Administration Radiology Results: ITS Impressions Chest X-Ray 06/09/24 09:14 IMPRESSION: 1. Airspace opacities in the mid and lower lung zones, consistent with atelectasis versus pneumonia. 2. Small pleural effusions. 3. Cardiomegaly. Labs Labs: Laboratory Results - last 24 hr 06/11/24 06/12/24 06/12/24 19:44 03:56 07:18 WBC 3.2 L RBC 3.38 L Hgb 10.4 L Hct 33.4 L MCV 98.8 MCH 30.8 MCHC 31.1 L RDW 14.4 Plt Count 89 L MPV 9.9 % Immature Plt Fraction 2.4 Sodium 136 L Potassium 4.0 Chloride 94 L Carbon Dioxide 32 H Anion Gap 10 BUN 94 H Creatinine 1.56 H Estim Creat Clear Calc 31 Estimated GFR 43 L Glucose 216 H POC Capillary Glucose 245 H 227 H Calcium 8.5 Total Bilirubin 0.9 AST 17 ALT 11 Alkaline Phosphatase 59 Total Protein 6.0 L Albumin 3.5 06/12/24 06/12/24 11:13 16:14 WBC RBC Hgb Hct MCV MCH MCHC RDW Plt Count MPV % Immature Plt Fraction Sodium Potassium Chloride Carbon Dioxide Anion Gap BUN Creatinine Estim Creat Clear Calc Estimated GFR Glucose POC Capillary Glucose 229 H 262 H Calcium Total Bilirubin AST ALT Alkaline Phosphatase Total Protein Albumin Quality VTE Prophylaxis VTE prophylaxis: mechanical ordered and pharmacologic ordered Hospitalist MIPS Advance Care Plan I have confirmed that the patient's Advanced Care Plan is present, code status is documented, or surrogate decision maker is listed in patient medical record.: Yes Medication Reconciliation I have utilized all available resources to obtain, update and review the patients current medications (includes all prescriptions, OTC, herbals, cannabis, and nutritional supplements).: Yes
[2024-06-12] MEDS: PREGABALIN (*CRX) 25 MG CAPSULE PO (20:33)
[2024-06-12 21:03] LABS: Glucose Point of Care 329 mg/dl (65-105)
[2024-06-13] VITALS (20 sets, daily range): BP systolic 92–119; BP diastolic 36–57; PULSE 60–82; RESP 20–29; TEMP 36.4–36.7; O2SAT 95–100
[2024-06-13 07:15] LABS: Hematocrit 29.3 % (42.0-52.0); Mean Corpuscular HGB Conc 30.7 g/dl (32-36); Mean Corpuscular Hemoglobin 30.5 pg (26-34); Mean Corpuscular Volume 99.3 fl (80-100); Mean Platelet Volume 9.8 fl (7.4-10.4); Platelet Count Result 82 k/mm3 (150-375); Red Blood Count 2.95 M/mm3 (4.6-6.20); Red Cell Distribution Width 14.1 % (11.5-14.5); White Blood Count 4.7 K/mm3 (4.5-10.0)
[2024-06-13 07:38] LABS: Alanine Aminotransferase 10 U/L (6-50); Alkaline Phosphatase 57 U/L (38-126); Anion Gap 6 mmol/L (4-12); Aspartate Amino Transferase 14 U/L (17-59); Bilirubin,Total 0.8 mg/dL (0.2-1.3); Blood Urea Nitrogen 87 mg/dL (9-20); Calcium 8.1 mg/dL (8.4-10.2); Carbon Dioxide 33 mmol/L (22-30); Chloride 97 mmol/L (98-107); Estimated CRCL calculation 33 ml/min; Estimated Glomerular Filt Rate 46; Glucose 230 mg/dL (65-110); Potassium 3.7 mmol/L (3.4-5.0); Sodium 136 mmol/L (137-145)
[2024-06-13 07:53] LABS: Glucose Point of Care 215 mg/dl (65-105)
--- NOTE | 2024-06-13 09:13 | PM.PNCARD ---
Progress Note: A&P Assessment and Plan (1) CHF (congestive heart failure): Code(s): I50.9 - Heart failure, unspecified Status: Acute Plan 1. Acute on chronic congestive heart failure. 2. Acute hypercarbic respiratory failure 3. CHRISTIAN vs CHRISTIAN on CKD vs CKD 4. CAD s/p CABG 5. S/p bioprosthetic aortic valve 6. S/p biventricular ICD 7. COPD 8. Hypertension 9. Hyperlipidemia 10. Type 2 diabetes mellitus PLAN: -may change IV bumetanide to p.o.. -continue metoprolol succinate -Management of acute hypercarbic respiratory failure as per primary team. -spoke with . Based on previous notes, she wanted to change code status to DNR. Today, patient states that she would like her to get discharged to a nursing facility. -anticipate conservative cardiac management. No further cardiac testing is anticipated. We will follow on p.r.n. basis. Discharge planning as per primary team. Subjective Date/time seen: 06/13/24 09:13 Interval history: 06/13/2024-patient is lying in the bed, denies chest pain or shortness of breath. His is in the room. V paced rhythm on telemetry Exam Narrative: PHYSICAL EXAMINATION: GENERAL: Alert MENTAL STATUS: affect appropriate to mood EYES: Extraocular movements intact, no pallor EARS: External ears appear normal, hearing grossly normal NOSE: Normal and patent, no discharge MOUTH: Mucous membranes moist, tongue normal NECK: Supple, no JVD CHEST: Good respiratory effort, clear to auscultation HEART: Normal rate, regular/paced rhythm, systolic murmur left sternal border and base ABDOMEN: Soft, nontender NEUROLOGICAL: Alert, oriented, normal speech, no gross motor deficits MUSCULOSKELETAL: No major deformity, no amputation EXTREMITIES: Bilateral pedal edema SKIN: no rash on the exposed area, no cyanosis PSYCHIATRIC: Normal mood, appropriate affect Objective Data Vital Signs Vital Signs: Vital Signs - 24 hr 06/12/24 09:15 06/12/24 10:00 06/12/24 12:00 Temperature 36.1 C L Pulse Rate 72 69 67 Respiratory Rate 16 Blood Pressure 101/47 L Pulse Oximetry 100 Oxygen Delivery Oxygen Flow Rate Fraction of Inspired Oxygen 06/12/24 12:00 06/12/24 12:00 06/12/24 14:00 Temperature Pulse Rate 63 60 Respiratory Rate Blood Pressure Pulse Oximetry 100 Oxygen Delivery Nasal Cannula Oxygen Flow Rate 2 Fraction of Inspired Oxygen 06/12/24 16:00 06/12/24 16:00 06/12/24 16:00 Temperature 36.6 C Pulse Rate 63 63 Respiratory Rate 22 H Blood Pressure 99/47 L Pulse Oximetry 98 100 Oxygen Delivery Nasal Cannula Oxygen Flow Rate 2 Fraction of Inspired Oxygen 06/12/24 18:00 06/12/24 20:00 06/12/24 20:00 Temperature 36.7 C Pulse Rate 62 67 62 Respiratory Rate 22 H Blood Pressure 111/39 L Pulse Oximetry 94 Oxygen Delivery Oxygen Flow Rate Fraction of Inspired Oxygen 06/12/24 20:10 06/12/24 20:10 06/12/24 20:45 Temperature Pulse Rate 64 Respiratory Rate 23 H Blood Pressure Pulse Oximetry 96 98 96 Oxygen Delivery Nasal Cannula BiPAP BiPAP Oxygen Flow Rate 2 Fraction of Inspired Oxygen 30 06/12/24 20:48 06/12/24 22:00 06/13/24 00:00 Temperature Pulse Rate 62 60 Respiratory Rate Blood Pressure Pulse Oximetry 95 97 Oxygen Delivery Nasal Cannula BiPAP Oxygen Flow Rate Fraction of Inspired Oxygen 30 06/13/24 00:00 06/13/24 00:18 06/13/24 02:00 Temperature 36.7 C Pulse Rate 60 65 62 Respiratory Rate 22 H Blood Pressure 104/36 L Pulse Oximetry 99 Oxygen Delivery Oxygen Flow Rate Fraction of Inspired Oxygen 06/13/24 04:00 06/13/24 04:00 06/13/24 05:01 Temperature 36.7 C Pulse Rate 60 65 Respiratory Rate 22 H Blood Pressure 119/45 L Pulse Oximetry 100 100 Oxygen Delivery BiPAP Oxygen Flow Rate Fraction of Inspired Oxygen 30 06/13/24 06:00 06/13/24 06:07 06/13/24 08:00 Temperature 36.5 C Pulse Rate 63 65 Respiratory Rate 20 Blood Pressure 92/56 L Pulse Oximetry 99 95 Oxygen Delivery Nasal Cannula Oxygen Flow Rate 2 Fraction of Inspired Oxygen Intake/Output Intake/Output: Intake & Output 06/10/24 06/11/24 06/12/24 06/13/24 23:59 23:59 23:59 23:59 Intake Total 1420 430 840 0 Output Total 1300 2450 900 Balance 60 0 Meds/Results Medications: Active Medications Generic Name Dose Route Start Last Admin Trade Name Freq PRN Reason Stop Dose Admin Acetaminophen 650 mg 06/10/24 01:25 Acetaminophen 325 Mg Tablet PO Q4H PRN Mild Pain (1-3) or Fever Albuterol 2 puff 06/11/24 12:15 Albuterol Sulfate (*Sp) Aerosol 1 Puff INHALATION QID PRN Shortness Of Breath Or Wheezing Amoxicillin/Clavulanate Potassium 1 tablet 06/12/24 11:55 06/12/24 20:32 Amoxicillin/Clavulanate K 875-125 Mg Tab PO 06/15/24 21:01 1 tablet Q12HR WARD Administration Atropine Sulfate 1 drop 06/11/24 21:00 06/12/24 20:34 Atropine Sulfate 1% Ophth Soln 5 Ml Bottle EACH EYE 1 drop Q12HR WARD Administration Bumetanide 1 mg 06/11/24 17:00 06/12/24 17:05 Bumetanide Inj 1 Mg/4 Ml Vial IV PUSH 1 mg BID WARD Administration Dextrose 12.5 gm 06/10/24 01:20 Dextrose 50% 25 Gm/50 Ml Syringe IV PUSH PRN PRN Hypoglycemia Protocol Doxycycline Hyclate 100 mg 06/12/24 13:00 06/12/24 20:32 Doxycycline Hyclate 100 Mg Tablet PO 06/15/24 21:01 100 mg Q12HR WARD Administration Enoxaparin Sodium 30 mg 06/10/24 09:00 06/12/24 10:46 Enoxaparin 30 Mg/0.3 Ml Syringe SUB-Q Not Given DAILY WARD Ferrous Sulfate 325 mg 06/11/24 17:00 06/12/24 17:08 Ferrous Sulfate [address] BY MOUTH 325 mg BID WARD Administration Finasteride 5 mg 06/11/24 12:30 06/12/24 09:15 Finasteride 5 Mg Tablet PO 5 mg DAILY WARD Administration Fluticasone/Umeclidinium/Vilanterol 1 puff 06/11/24 12:35 06/12/24 10:16 Fluticasone/Umeclidin/Vilanter 100-62.5-25 Mcg Ellipta INHALATION Not Given DAILYRT WARD Folic Acid 1 mg 06/11/24 12:30 06/12/24 09:15 Folic Acid 1 Mg Tablet PO 1 mg DAILY WARD Administration Glucagon 1 mg 06/10/24 01:20 Glucagon For Inj 1 Mg Vial IM PRN PRN Hypoglycemia Protocol Glucose 15 gm 06/10/24 01:20 Glucose Oral Gel 15 Gm Of Glucse In 37.5 Gm Tube PO PRN PRN Hypoglycemia Protocol Guaifenesin 1,200 mg 06/11/24 12:30 Guaifenesin 12 Hr 600 Mg Tabcr PO Q12HR PRN Cough Dextrose 1,000 mls @ 100 mls/hr 06/10/24 01:20 Dextrose 5% 1,000 Ml IVPB PRN PRN Hypoglycemia Protocol Insulin Aspart 3 - 6 units 06/12/24 08:00 06/12/24 21:06 Insulin Aspart (*Bkc) 100 Units/Ml SUB-Q 5 units WMHS WARD Administration Protocol Metoprolol Succinate 12.5 mg 06/11/24 12:35 06/12/24 09:15 Metoprolol Succinate Ext Rel 12.5 Mg Tabcr PO 12.5 mg QAM WARD Administration Pantoprazole Sodium 40 mg 06/11/24 12:30 06/12/24 09:15 Pantoprazole 40 Mg Tablet PO 40 mg QAM WARD Administration Prednisolone Acetate 1 drop 06/11/24 21:00 06/12/24 20:33 Prednisolone Acetate 1% Ophth 5 Ml RIGHT EYE 1 drop Q12HR WARD Administration Pregabalin 25 mg 06/11/24 21:00 06/12/24 20:33 Pregabalin (*Crx) 25 Mg Capsule PO 25 mg HS WARD Administration Tamsulosin HCl 0.4 mg 06/11/24 18:00 06/12/24 17:08 Tamsulosin Hcl 0.4 Mg Capsule PO 0.4 mg QPM WARD Administration Radiology Results: ITS Impressions Chest X-Ray 06/09/24 09:14 IMPRESSION: 1. Airspace opacities in the mid and lower lung zones, consistent with atelectasis versus pneumonia. 2. Small pleural effusions. 3. Cardiomegaly. Labs Labs: Laboratory Results - last 24 hr 06/12/24 06/12/24 06/12/24 11:13 16:14 21:00 WBC RBC Hgb Hct MCV MCH MCHC RDW Plt Count MPV Sodium Potassium Chloride Carbon Dioxide Anion Gap BUN Creatinine Estim Creat Clear Calc Estimated GFR Glucose POC Capillary Glucose 229 H 262 H 329 H Calcium Total Bilirubin AST ALT Alkaline Phosphatase Total Protein Albumin 06/13/24 06/13/24 07:07 07:49 WBC 4.7 RBC 2.95 L Hgb 9.0 L Hct 29.3 L MCV 99.3 MCH 30.5 MCHC 30.7 L RDW 14.1 Plt Count 82 L MPV 9.8 Sodium 136 L Potassium 3.7 Chloride 97 L Carbon Dioxide 33 H Anion Gap 6 BUN 87 H Creatinine 1.47 H Estim Creat Clear Calc 33 Estimated GFR 46 L Glucose 230 H POC Capillary Glucose 215 H Calcium 8.1 L Total Bilirubin 0.8 AST 14 L ALT 10 Alkaline Phosphatase 57 Total Protein 5.0 L Albumin 3.0 L
[2024-06-13] MEDS: METOPROLOL SUCCINATE EXT REL 12.5 MG TABCR PO (09:23)
[2024-06-13] MEDS: PANTOPRAZOLE 40 MG TABLET PO (09:23)
[2024-06-13] MEDS: FOLIC ACID 1 MG TABLET PO (09:23)
[2024-06-13] MEDS: FINASTERIDE 5 MG TABLET PO (09:23)
[2024-06-13] MEDS: ENOXAPARIN 30 MG/0.3 ML SYRINGE SUB-Q (09:24)
[2024-06-13] MEDS: FERROUS SULFATE 325 MG TABLET DR BY MOUTH ×2 (09:24→18:41)
[2024-06-13] MEDS: ATROPINE SULFATE 1% OPHTH SOLN 5 ML BOTTLE 1 DROP EACH EYE ×2 (09:24→20:12)
[2024-06-13] MEDS: AMOXICILLIN/CLAVULANATE K 875-125 MG TAB 1 TABLET PO ×2 (09:24→20:12)
[2024-06-13] MEDS: prednisoLONE ACETATE 1% OPHTH 5 ML 1 DROP RIGHT EYE ×2 (09:24→20:12)
[2024-06-13] MEDS: DOXYCYCLINE HYCLATE 100 MG TABLET PO ×2 (09:24→20:12)
[2024-06-13] MEDS: INSULIN ASPART (*BKC) 100 UNITS/ML SUB-Q ×3 (09:24→20:11)
[2024-06-13] MEDS: FLUTICASONE/UMECLIDIN/VILANTER 100-62.5-25 MCG ELLIPTA 1 PUFF INHALATION (09:43)
--- NOTE | 2024-06-13 10:41 | P.PNIM_ITS ---
Progress Note: A&P Assessment and Plan (1) Acute respiratory failure with hypercapnia: Code(s): J96.02 - Acute respiratory failure with hypercapnia Status: Acute Assessment and Plan: With pneumonia Discontinue cefepime and started Augmentin and continue doxycycline Blood cultures pending DuoNebs (2) CHF exacerbation: Code(s): I50.9 - Heart failure, unspecified Status: Acute Assessment and Plan: Discontinue Lasix 40 mg IV b.i.d. Hold home dose torsemide 20 mg p.o. b.i.d. Continue Bumex 1 mg p.o. b.i.d. Continue home dose metoprolol succinate 12.5 mg p.o. q.d. Fluid restriction 1600 Left ventricular ejection fraction 40-45% (3) DM2 (diabetes mellitus, type 2): Code(s): E11.9 - Type 2 diabetes mellitus without complications Status: Chronic Assessment and Plan: NPO while BiPAP dependent Patient will need a diabetic diet Accu-Cheks q.6 hours SSI (4) Chronic renal failure, stage 3 (moderate): Code(s): N18.30 - Chronic kidney disease, stage 3 unspecified Status: Acute Assessment and Plan: Daily BMP Avoid nephrotoxic medications will receiving high-dose Lasix CKD 4 (5) Chronic respiratory failure with hypoxia: Code(s): J96.11 - Chronic respiratory failure with hypoxia Status: Chronic Assessment and Plan: 2 L nasal cannula baseline Plan Medications were reviewed from [facility]. patient was discharged from [facility] on May 30 with torsemide 20 mg p.o. b.i.d. and metoprolol 12.5 mg p.o. q.d.. Advised to follow-up with the primary care physician for his CKD stage 4 and heart failure. Subjective Date/time seen: 06/13/24 10:41 Interval history: Family denied hospice and opted for rehabilitation. Possible discharge tomorrow Review of Systems Review of Systems: 12 systems were reviewed and are negativ e except for as per HPI. ROS unobtainable: Yes unobtainable due to medical condition Exam Narrative: General: Chronically ill appearing, appears stated age. HEENT: normocephalic, atraumatic. Mucous membranes moist. EOMI, PERRLA, bilateral sclera anicteric, no conjunctival injection. Neck supple without JVD, lymphadenopathy, or bruit. Respiratory: Course to ascultation bilaterally. On BiPAP Cardiovascular: Regular rate and rhythm, normal S1-S2 upon ascultation. Murmur Abdomen: Soft, round, no pulsatile masses, nondistended and nontender. No rebound, no guarding. No CVA tenderness, no hepatosplenomegaly. Bowel sounds present to all four quadrants. No high pitch or tinkling sounds, resonant to percussion. Extremities: No cyanosis, clubbing, or edema present. Pulses are palpable 2/2. Active ROM to all four extremities. Neuro: Alert and orientated x 4. PERRLA. Cranial nerves 2-12 intact without focal deficit. Skin: Warm, dry, and intact, without rash, erythema, or lesion. Psych: pleasant, cooperative, normal speech, normal affect, no hallucinations, no dysarthia Objective Data Vital Signs Vital Signs: Vital Signs - 24 hr 06/12/24 12:00 06/12/24 12:00 06/12/24 12:00 Temperature 96.9 F L Pulse Rate 67 63 Respiratory Rate 16 Blood Pressure 101/47 L Pulse Oximetry 100 100 Oxygen Delivery Nasal Cannula Oxygen Flow Rate 2 Fraction of Inspired Oxygen 06/12/24 14:00 06/12/24 16:00 06/12/24 16:00 Temperature 97.8 F Pulse Rate 60 63 Respiratory Rate 22 H Blood Pressure 99/47 L Pulse Oximetry 98 100 Oxygen Delivery Nasal Cannula Oxygen Flow Rate 2 Fraction of Inspired Oxygen 06/12/24 16:00 06/12/24 18:00 06/12/24 20:00 Temperature 98.0 F Pulse Rate 63 62 67 Respiratory Rate 22 H Blood Pressure 111/39 L Pulse Oximetry 94 Oxygen Delivery Oxygen Flow Rate Fraction of Inspired Oxygen 06/12/24 20:00 06/12/24 20:10 06/12/24 20:10 Temperature Pulse Rate 62 64 Respiratory Rate 23 H Blood Pressure Pulse Oximetry 96 98 Oxygen Delivery Nasal Cannula BiPAP Oxygen Flow Rate 2 Fraction of Inspired Oxygen 06/12/24 20:45 06/12/24 20:48 06/12/24 22:00 Temperature Pulse Rate 62 60 Respiratory Rate Blood Pressure Pulse Oximetry 96 95 Oxygen Delivery BiPAP Nasal Cannula Oxygen Flow Rate Fraction of Inspired Oxygen 30 06/13/24 00:00 06/13/24 00:00 06/13/24 00:18 Temperature 98.0 F Pulse Rate 60 65 Respiratory Rate 22 H Blood Pressure 104/36 L Pulse Oximetry 97 99 Oxygen Delivery BiPAP Oxygen Flow Rate Fraction of Inspired Oxygen 30 06/13/24 02:00 06/13/24 04:00 06/13/24 04:00 Temperature Pulse Rate 62 60 Respiratory Rate Blood Pressure Pulse Oximetry 100 Oxygen Delivery BiPAP Oxygen Flow Rate Fraction of Inspired Oxygen 30 06/13/24 05:01 06/13/24 06:00 06/13/24 06:07 Temperature 98.0 F Pulse Rate 65 63 Respiratory Rate 22 H Blood Pressure 119/45 L Pulse Oximetry 100 99 Oxygen Delivery Nasal Cannula Oxygen Flow Rate 2 Fraction of Inspired Oxygen 06/13/24 08:00 06/13/24 09:23 06/13/24 09:44 Temperature 97.7 F Pulse Rate 65 63 67 Respiratory Rate 20 20 Blood Pressure 92/56 L Pulse Oximetry 95 100 Oxygen Delivery Nasal Cannula Oxygen Flow Rate 2 Fraction of Inspired Oxygen 06/13/24 09:44 Temperature Pulse Rate 67 Respiratory Rate 20 Blood Pressure Pulse Oximetry Oxygen Delivery Oxygen Flow Rate Fraction of Inspired Oxygen Intake/Output Intake/Output: Intake & Output 06/10/24 06/11/24 06/12/24 06/13/24 23:59 23:59 23:59 23:59 Intake Total 1420 430 840 0 Output Total 1300 2450 900 Balance - 0 Meds/Results Medications: Active Medications Generic Name Dose Route Start Last Admin Trade Name Freq PRN Reason Stop Dose Admin Acetaminophen 650 mg 06/10/24 01:25 Acetaminophen 325 Mg Tablet PO Q4H PRN Mild Pain (1-3) or Fever Albuterol 2 puff 06/11/24 12:15 Albuterol Sulfate (*Sp) Aerosol 1 Puff INHALATION QID PRN Shortness Of Breath Or Wheezing Amoxicillin/Clavulanate Potassium 1 tablet 06/12/24 11:55 06/13/24 09:24 Amoxicillin/Clavulanate K 875-125 Mg Tab PO 06/15/24 21:01 1 tablet Q12HR WARD Administration Atropine Sulfate 1 drop 06/11/24 21:00 06/13/24 09:24 Atropine Sulfate 1% Ophth Soln 5 Ml Bottle EACH EYE 1 drop Q12HR WARD Administration Bumetanide 1 mg 06/13/24 09:50 Bumetanide 1 Mg Tablet PO BID WARD Dextrose 12.5 gm 06/10/24 01:20 Dextrose 50% 25 Gm/50 Ml Syringe IV PUSH PRN PRN Hypoglycemia Protocol Doxycycline Hyclate 100 mg 06/12/24 13:00 06/13/24 09:24 Doxycycline Hyclate 100 Mg Tablet PO 06/15/24 21:01 100 mg Q12HR WARD Administration Enoxaparin Sodium 30 mg 06/10/24 09:00 06/13/24 09:24 Enoxaparin 30 Mg/0.3 Ml Syringe SUB-Q 30 mg DAILY WARD Administration Ferrous Sulfate 325 mg 06/11/24 17:00 06/13/24 09:24 Ferrous Sulfate [address] BY MOUTH 325 mg BID WARD Administration Finasteride 5 mg 06/11/24 12:30 06/13/24 09:23 Finasteride 5 Mg Tablet PO 5 mg DAILY WARD Administration Fluticasone/Umeclidinium/Vilanterol 1 puff 06/11/24 12:35 06/13/24 09:43 Fluticasone/Umeclidin/Vilanter 100-62.5-25 Mcg Ellipta INHALATION 1 puff DAILYRT WARD Administration Folic Acid 1 mg 06/11/24 12:30 06/13/24 09:23 Folic Acid 1 Mg Tablet PO 1 mg DAILY WARD Administration Glucagon 1 mg 06/10/24 01:20 Glucagon For Inj 1 Mg Vial IM PRN PRN Hypoglycemia Protocol Glucose 15 gm 06/10/24 01:20 Glucose Oral Gel 15 Gm Of Glucse In 37.5 Gm Tube PO PRN PRN Hypoglycemia Protocol Guaifenesin 1,200 mg 06/11/24 12:30 Guaifenesin 12 Hr 600 Mg Tabcr PO Q12HR PRN Cough Dextrose 1,000 mls @ 100 mls/hr 06/10/24 01:20 Dextrose 5% 1,000 Ml IVPB PRN PRN Hypoglycemia Protocol Insulin Aspart 3 - 6 units 06/12/24 08:00 06/13/24 09:24 Insulin Aspart (*Bkc) 100 Units/Ml SUB-Q 3 units WMHS WARD Administration Protocol Metoprolol Succinate 12.5 mg 06/11/24 12:35 06/13/24 09:23 Metoprolol Succinate Ext Rel 12.5 Mg Tabcr PO 12.5 mg QAM WARD Administration Pantoprazole Sodium 40 mg 06/11/24 12:30 06/13/24 09:23 Pantoprazole 40 Mg Tablet PO 40 mg QAM WARD Administration Prednisolone Acetate 1 drop 06/11/24 21:00 06/13/24 09:24 Prednisolone Acetate 1% Ophth 5 Ml RIGHT EYE 1 drop Q12HR WARD Administration Pregabalin 25 mg 06/11/24 21:00 06/12/24 20:33 Pregabalin (*Crx) 25 Mg Capsule PO 25 mg HS WARD Administration Tamsulosin HCl 0.4 mg 06/11/24 18:00 06/12/24 17:08 Tamsulosin Hcl 0.4 Mg Capsule PO 0.4 mg QPM WARD Administration Radiology Results: ITS Impressions Chest X-Ray 06/09/24 09:14 IMPRESSION: 1. Airspace opacities in the mid and lower lung zones, consistent with atelectasis versus pneumonia. 2. Small pleural effusions. 3. Cardiomegaly. Labs Labs: Laboratory Results - last 24 hr 06/12/24 06/12/24 06/12/24 11:13 16:14 21:00 WBC RBC Hgb Hct MCV MCH MCHC RDW Plt Count MPV Sodium Potassium Chloride Carbon Dioxide Anion Gap BUN Creatinine Estim Creat Clear Calc Estimated GFR Glucose POC Capillary Glucose 229 H 262 H 329 H Calcium Total Bilirubin AST ALT Alkaline Phosphatase Total Protein Albumin 06/13/24 06/13/24 07:07 07:49 WBC 4.7 RBC 2.95 L Hgb 9.0 L Hct 29.3 L MCV 99.3 MCH 30.5 MCHC 30.7 L RDW 14.1 Plt Count 82 L MPV 9.8 Sodium 136 L Potassium 3.7 Chloride 97 L Carbon Dioxide 33 H Anion Gap 6 BUN 87 H Creatinine 1.47 H Estim Creat Clear Calc 33 Estimated GFR 46 L Glucose 230 H POC Capillary Glucose 215 H Calcium 8.1 L Total Bilirubin 0.8 AST 14 L ALT 10 Alkaline Phosphatase 57 Total Protein 5.0 L Albumin 3.0 L Quality VTE Prophylaxis VTE prophylaxis: mechanical ordered and pharmacologic ordered Hospitalist MIPS Advance Care Plan I have confirmed that the patient's Advanced Care Plan is present, code status is documented, or surrogate decision maker is listed in patient medical record.: Yes Medication Reconciliation I have utilized all available resources to obtain, update and review the patie nts current medications (includes all prescriptions, OTC, herbals, cannabis, and nutritional supplements).: Yes
[2024-06-13 11:28] LABS: Glucose Point of Care 231 mg/dl (65-105)
[2024-06-13] MEDS: BUMETANIDE 1 MG TABLET PO ×2 (12:05→18:41)
[2024-06-13 16:21] LABS: Glucose Point of Care 174 mg/dl (65-105)
[2024-06-13] MEDS: TAMSULOSIN HCL 0.4 MG CAPSULE PO (18:41)
[2024-06-13] MEDS: ACETAMINOPHEN 325 MG TABLET 650 MG PO (18:43)
[2024-06-13] MEDS: PREGABALIN (*CRX) 25 MG CAPSULE PO (20:12)
[2024-06-13 22:00] LABS: Glucose Point of Care 259 mg/dl (65-105)
[2024-06-14] VITALS (13 sets, daily range): BP systolic 101–143; BP diastolic 37–52; PULSE 60–94; RESP 14–26; TEMP 36.4–36.7; O2SAT 96–100
[2024-06-14 04:51] LABS: Hematocrit 32.3 % (42.0-52.0); Mean Corpuscular Hemoglobin 30.6 pg (26-34); Mean Corpuscular Volume 98.8 fl (80-100); Mean Platelet Volume 10.4 fl (7.4-10.4); Platelet Count Result 92 k/mm3 (150-375); Red Blood Count 3.27 M/mm3 (4.6-6.20); Red Cell Distribution Width 14.4 % (11.5-14.5); White Blood Count 4.2 K/mm3 (4.5-10.0)
[2024-06-14 04:58] LABS: Alanine Aminotransferase 11 U/L (6-50); Albumin Level 3.3 g/dL (3.5-5.1); Alkaline Phosphatase 62 U/L (38-126); Anion Gap 6 mmol/L (4-12); Aspartate Amino Transferase 15 U/L (17-59); Bilirubin,Total 0.9 mg/dL (0.2-1.3); Blood Urea Nitrogen 84 mg/dL (9-20); Calcium 8.3 mg/dL (8.4-10.2); Carbon Dioxide 36 mmol/L (22-30); Chloride 95 mmol/L (98-107); Estimated CRCL calculation 33 ml/min; Estimated Glomerular Filt Rate 46; Glucose 225 mg/dL (65-110); Potassium 3.9 mmol/L (3.4-5.0); Sodium 137 mmol/L (137-145)
[2024-06-14 08:11] LABS: Glucose Point of Care 222 mg/dl (65-105)
[2024-06-14] MEDS: FLUTICASONE/UMECLIDIN/VILANTER 100-62.5-25 MCG ELLIPTA 1 PUFF INHALATION (08:39)
--- NOTE | 2024-06-14 09:05 | P.PNIM_ITS ---
Progress Note: A&P Assessment and Plan (1) Acute respiratory failure with hypercapnia: Code(s): J96.02 - Acute respiratory failure with hypercapnia Status: Acute Assessment and Plan: With pneumonia Discontinue cefepime and started Augmentin and continue doxycycline Blood cultures pending DuoNebs (2) CHF exacerbation: Code(s): I50.9 - Heart failure, unspecified Status: Acute Assessment and Plan: Discontinue Lasix 40 mg IV b.i.d. Hold home dose torsemide 20 mg p.o. b.i.d. Continue Bumex 1 mg p.o. b.i.d. Continue home dose metoprolol succinate 12.5 mg p.o. q.d. Fluid restriction 1600 Left ventricular ejection fraction 40-45% (3) DM2 (diabetes mellitus, type 2): Code(s): E11.9 - Type 2 diabetes mellitus without complications Status: Chronic Assessment and Plan: NPO while BiPAP dependent Patient will need a diabetic diet Accu-Cheks q.6 hours SSI (4) Chronic renal failure, stage 3 (moderate): Code(s): N18.30 - Chronic kidney disease, stage 3 unspecified Status: Acute Assessment and Plan: Daily BMP Avoid nephrotoxic medications will receiving high-dose Lasix CKD 4 (5) Chronic respiratory failure with hypoxia: Code(s): J96.11 - Chronic respiratory failure with hypoxia Status: Chronic Assessment and Plan: 2 L nasal cannula baseline Plan Medications were reviewed from [place]. patient was discharged from [facility] on May 30 with torsemide 20 mg p.o. b.i.d. and metoprolol 12.5 mg p.o. q.d.. Advised to follow-up with the primary care physician for his CKD stage 4 and heart failure. Subjective Date/time seen: 06/14/24 09:05 Interval history: Interval history: 84-year-old male with a past medical history of CAD(s/p CABG 2004,PCI 2005), HFrEF (EF 45-50% 05/2024), s/p [employer] and ICD,CKD4, HTN, COPD(2L) ,AFUA,CVA,T2DM,A.Fib, (s/p Bio AVR 2013),rib fracture(2023), and urothelial ca. patient was discharged from [facility] on May. Patient was initially admitted in the ICU for noninvasive positive pressure ventilation. Where he was treated for respiratory distress with a BiPAP , Lasix, metolazone, steroids and antibiotics. Later his code status has been changed from full code to DNR after discussing with with him and his . In regards to heart failure medications patient was discharged with torsemide 20 mg b.i.d. and metoprolol succinate 12.5 mg p.o. q.d. 06/14:Patient is resting well. P.r.n. BiPAP. Patient will be discharged possibly tomorrow to rehab. Family previously denied hospice. Review of Systems Review of Systems: 12 systems were reviewed and are negativ e except for as per HPI. ROS unobtainable: Yes unobtainable due to medical condition Exam Narrative: General: Chronically ill appearing, appears stated age. HEENT: normocephalic, atraumatic. Mucous membranes moist. EOMI, PERRLA, bilateral sclera anicteric, no conjunctival injection. Neck supple without JVD, lymphadenopathy, or bruit. Respiratory: Course to ascultation bilaterally. On BiPAP Cardiovascular: Regular rate and rhythm, normal S1-S2 upon ascultation. Murmur Abdomen: Soft, round, no pulsatile masses, nondistended and nontender. No rebound, no guarding. No CVA tenderness, no hepatosplenomegaly. Bowel sounds present to all four quadrants. No high pitch or tinkling sounds, resonant to percussion. Extremities: No cyanosis, clubbing, or edema present. Pulses are palpable 2/2. Active ROM to all four extremities. Neuro: Alert and orientated x 4. PERRLA. Cranial nerves 2-12 intact without focal deficit. Skin: Warm, dry, and intact, without rash, erythema, or lesion. Psych: pleasant, cooperative, normal speech, normal affect, no hallucinations, no dysarthia Objective Data Vital Signs Vital Signs: Vital Signs - 24 hr 06/13/24 09:23 06/13/24 09:44 06/13/24 09:44 Temperature Pulse Rate 63 67 67 Respiratory Rate 20 20 Blood Pressure Pulse Oximetry 100 Oxygen Delivery Nasal Cannula Oxygen Flow Rate 2 Fraction of Inspired Oxygen 06/13/24 10:00 06/13/24 12:00 06/13/24 12:00 Temperature 97.6 F Pulse Rate 60 63 62 Respiratory Rate 22 H Blood Pressure 117/50 L Pulse Oximetry 98 Oxygen Delivery Oxygen Flow Rate Fraction of Inspired Oxygen 06/13/24 12:00 06/13/24 14:00 06/13/24 16:00 Temperature 97.7 F Pulse Rate 63 60 Respiratory Rate 26 H Blood Pressure 103/57 L Pulse Oximetry 99 99 Oxygen Delivery Nasal Cannula Oxygen Flow Rate 2 Fraction of Inspired Oxygen 06/13/24 16:00 06/13/24 16:00 06/13/24 18:00 Temperature Pulse Rate 60 63 Respiratory Rate Blood Pressure Pulse Oximetry 99 Oxygen Delivery Nasal Cannula Oxygen Flow Rate 2 Fraction of Inspired Oxygen 06/13/24 20:00 06/13/24 20:00 06/13/24 20:41 Temperature Pulse Rate 60 66 Respiratory Rate 29 H Blood Pressure Pulse Oximetry 100 99 Oxygen Delivery Nasal Cannula BiPAP Oxygen Flow Rate 2 Fraction of Inspired Oxygen 06/13/24 21:16 06/13/24 21:50 06/13/24 22:00 Temperature 97.8 F Pulse Rate 62 69 65 Respiratory Rate 26 H Blood Pressure 101/51 L Pulse Oximetry 100 99 Oxygen Delivery BiPAP Oxygen Flow Rate Fraction of Inspired Oxygen 06/14/24 00:00 06/14/24 00:00 06/14/24 00:00 Temperature 97.8 F Pulse Rate 71 60 Respiratory Rate 18 Blood Pressure 116/50 L Pulse Oximetry 100 99 Oxygen Delivery BiPAP Oxygen Flow Rate Fraction of Inspired Oxygen 30 06/14/24 02:00 06/14/24 04:00 06/14/24 04:00 Temperature Pulse Rate 63 72 Respiratory Rate Blood Pressure Pulse Oximetry 100 Oxygen Delivery BiPAP Oxygen Flow Rate Fraction of Inspired Oxygen 30 06/14/24 04:00 06/14/24 06:00 06/14/24 08:00 Temperature 97.9 F 97.8 F Pulse Rate 62 67 94 Respiratory Rate 18 14 Blood Pressure 102/46 L 122/37 L Pulse Oximetry 100 100 Oxygen Delivery Oxygen Flow Rate Fraction of Inspired Oxygen 06/14/24 08:13 06/14/24 08:39 06/14/24 08:39 Temperature Pulse Rate 60 Respiratory Rate 20 Blood Pressure 101/43 L Pulse Oximetry 100 Oxygen Delivery Nasal Cannula Oxygen Flow Rate 2 Fraction of Inspired Oxygen 28 Intake/Output Intake/Output: Intake & Output 06/11/24 06/12/24 06/13/24 06/14/24 23:59 23:59 23:59 23:59 Intake Total 430 840 720 150 Output Total 2450 900 1000 400 Balance -2020 -60 -280 -250 Meds/Results Medications: Active Medications Generic Name Dose Route Start Last Admin Trade Name Freq PRN Reason Stop Dose Admin Acetaminophen 650 mg 06/10/24 01:25 06/13/24 18:43 Acetaminophen 325 Mg Tablet PO 650 mg Q4H PRN Administration Mild Pain (1-3) or Fever Albuterol 2 puff 06/11/24 12:15 Albuterol Sulfate (*Sp) Aerosol 1 Puff INHALATION QID PRN Shortness Of Breath Or Wheezing Amoxicillin/Clavulanate Potassium 1 tablet 06/12/24 11:55 06/13/24 20:12 Amoxicillin/Clavulanate K 875-125 Mg Tab PO 06/15/24 21:01 1 tablet Q12HR WARD Administration Atropine Sulfate 1 drop 06/11/24 21:00 06/13/24 20:12 Atropine Sulfate 1% Ophth Soln 5 Ml Bottle EACH EYE 1 drop Q12HR WARD Administration Bumetanide 1 mg 06/13/24 09:50 06/13/24 18:41 Bumetanide 1 Mg Tablet PO 1 mg BID WARD Administration Dextrose 12.5 gm 06/10/24 01:20 Dextrose 50% 25 Gm/50 Ml Syringe IV PUSH PRN PRN Hypoglycemia Protocol Doxycycline Hyclate 100 mg 06/12/24 13:00 06/13/24 20:12 Doxycycline Hyclate 100 Mg Tablet PO 06/15/24 21:01 100 mg Q12HR WARD Administration Enoxaparin Sodium 30 mg 06/10/24 09:00 06/13/24 09:24 Enoxaparin 30 Mg/0.3 Ml Syringe SUB-Q 30 mg DAILY WARD Administration Ferrous Sulfate 325 mg 06/11/24 17:00 06/13/24 18:41 Ferrous Sulfate [address] BY MOUTH 325 mg BID WARD Administration Finasteride 5 mg 06/11/24 12:30 06/13/24 09:23 Finasteride 5 Mg Tablet PO 5 mg DAILY WARD Administration Fluticasone/Umeclidinium/Vilanterol 1 puff 06/11/24 12:35 06/14/24 08:39 Fluticasone/Umeclidin/Vilanter 100-62.5-25 Mcg Ellipta INHALATION 1 puff DAILYRT WARD Administration Folic Acid 1 mg 06/11/24 12:30 06/13/24 09:23 Folic Acid 1 Mg Tablet PO 1 mg DAILY WARD Administration Glucagon 1 mg 06/10/24 01:20 Glucagon For Inj 1 Mg Vial IM PRN PRN Hypoglycemia Protocol Glucose 15 gm 06/10/24 01:20 Glucose Oral Gel 15 Gm Of Glucse In 37.5 Gm Tube PO PRN PRN Hypoglycemia Protocol Guaifenesin 1,200 mg 06/11/24 12:30 Guaifenesin 12 Hr 600 Mg Tabcr PO Q12HR PRN Cough Dextrose 1,000 mls @ 100 mls/hr 06/10/24 01:20 Dextrose 5% 1,000 Ml IVPB PRN PRN Hypoglycemia Protocol Insulin Aspart 3 - 6 units 06/12/24 08:00 06/13/24 20:11 Insulin Aspart (*Bkc) 100 Units/Ml SUB-Q 4 units WMHS WARD Administration Protocol Metoprolol Succinate 12.5 mg 06/11/24 12:35 06/13/24 09:23 Metoprolol Succinate Ext Rel 12.5 Mg Tabcr PO 12.5 mg QAM WARD Administration Pantoprazole Sodium 40 mg 06/11/24 12:30 06/13/24 09:23 Pantoprazole 40 Mg Tablet PO 40 mg QAM WARD Administration Prednisolone Acetate 1 drop 06/11/24 21:00 06/13/24 20:12 Prednisolone Acetate 1% Ophth 5 Ml RIGHT EYE 1 drop Q12HR WARD Administration Pregabalin 25 mg 06/11/24 21:00 06/13/24 20:12 Pregabalin (*Crx) 25 Mg Capsule PO 25 mg HS WARD Administration Tamsulosin HCl 0.4 mg 06/11/24 18:00 06/13/24 18:41 Tamsulosin Hcl 0.4 Mg Capsule PO 0.4 mg QPM WARD Administration Radiology Results: ITS Impressions Chest X-Ray 06/09/24 09:14 IMPRESSION: 1. Airspace opacities in the mid and lower lung zones, consistent with atelectasis versus pneumonia. 2. Small pleural effusions. 3. Cardiomegaly. Labs Labs: Laboratory Results - last 24 hr 06/13/24 06/13/24 06/13/24 11:24 16:17 20:10 WBC RBC Hgb Hct MCV MCH MCHC RDW Plt Count MPV % Immature Plt Fraction Sodium Potassium Chloride Carbon Dioxide Anion Gap BUN Creatinine Estim Creat Clear Calc Estimated GFR Glucose POC Capillary Glucose 231 H 174 H 259 H Calcium Total Bilirubin AST ALT Alkaline Phosphatase Total Protein Albumin 06/14/24 06/14/24 04:30 07:34 WBC 4.2 L RBC 3.27 L Hgb 10.0 L Hct 32.3 L MCV 98.8 MCH 30.6 MCHC 31.0 L RDW 14.4 Plt Count 92 L MPV 10.4 % Immature Plt Fraction 3.0 Sodium 137 Potassium 3.9 Chloride 95 L Carbon Dioxide 36 H Anion Gap 6 BUN 84 H Creatinine 1.47 H Estim Creat Clear Calc 33 Estimated GFR 46 L Glucose 225 H POC Capillary Glucose 222 H Calcium 8.3 L Total Bilirubin 0.9 AST 15 L ALT 11 Alkaline Phosphatase 62 Total Protein 6.0 L Albumin 3.3 L Quality VTE Prophylaxis VTE prophylaxis: mechanical ordered and pharmacologic ordered Hospitalist MIPS Advance Care Plan I have confirmed that the patient's Advanced Care Plan is present, code status is documented, or surrogate decision maker is listed in patient medical record.: Yes Medication Reconciliation I have utilized all available resources to obtain, update and review the patients current medications (includes all prescriptions, OTC, herbals, cannabis, and nutritional supplements).: Yes
[2024-06-14] MEDS: BUMETANIDE 1 MG TABLET PO ×2 (09:44→17:39)
[2024-06-14] MEDS: DOXYCYCLINE HYCLATE 100 MG TABLET PO ×2 (09:44→20:44)
[2024-06-14] MEDS: AMOXICILLIN/CLAVULANATE K 875-125 MG TAB 1 TABLET PO ×2 (09:44→20:44)
[2024-06-14] MEDS: METOPROLOL SUCCINATE EXT REL 12.5 MG TABCR PO (09:44)
[2024-06-14] MEDS: PANTOPRAZOLE 40 MG TABLET PO (09:45)
[2024-06-14] MEDS: FOLIC ACID 1 MG TABLET PO (09:45)
[2024-06-14] MEDS: ATROPINE SULFATE 1% OPHTH SOLN 5 ML BOTTLE 1 DROP EACH EYE ×2 (09:45→21:52)
[2024-06-14] MEDS: FERROUS SULFATE 325 MG TABLET DR BY MOUTH ×2 (09:45→17:39)
[2024-06-14] MEDS: FINASTERIDE 5 MG TABLET PO (09:45)
[2024-06-14] MEDS: prednisoLONE ACETATE 1% OPHTH 5 ML 1 DROP RIGHT EYE ×2 (09:45→21:52)
[2024-06-14] MEDS: INSULIN ASPART (*BKC) 100 UNITS/ML SUB-Q ×3 (09:46→17:39)
[2024-06-14 12:14] LABS: Glucose Point of Care 285 mg/dl (65-105)
[2024-06-14] MEDS: ACETAMINOPHEN 325 MG TABLET 650 MG PO (12:45)
--- NOTE | 2024-06-14 15:08 | PC.NURSE ---
pt arrival to 3M/S Rm. 315 from IMU Rm. 202 per bed. This RN assumed care of patient @ 1320 06/14/24.
[2024-06-14 16:54] LABS: Glucose Point of Care 261 mg/dl (65-105)
[2024-06-14] MEDS: TAMSULOSIN HCL 0.4 MG CAPSULE PO (17:39)
[2024-06-14 20:12] LABS: Glucose Point of Care 196 mg/dl (65-105)
[2024-06-14] MEDS: PREGABALIN (*CRX) 25 MG CAPSULE PO (20:44)
[2024-06-15] VITALS (9 sets, daily range): BP systolic 99–117; BP diastolic 45–48; PULSE 59–68; RESP 18–28; TEMP 36.1–36.7; O2SAT 96–100
[2024-06-15 05:26] LABS: Hematocrit 32.4 % (42.0-52.0); Immature Platelet Fraction Pct 3.3 % (0.9-11.2); Mean Corpuscular HGB Conc 30.9 g/dl (32-36); Mean Corpuscular Hemoglobin 30.8 pg (26-34); Mean Corpuscular Volume 99.7 fl (80-100); Mean Platelet Volume 10.2 fl (7.4-10.4); Platelet Count Result 92 k/mm3 (150-375); Red Blood Count 3.25 M/mm3 (4.6-6.20); Red Cell Distribution Width 14.6 % (11.5-14.5); White Blood Count 4.8 K/mm3 (4.5-10.0)
[2024-06-15 05:37] LABS: Alanine Aminotransferase 12 U/L (6-50); Albumin Level 3.2 g/dL (3.5-5.1); Alkaline Phosphatase 62 U/L (38-126); Anion Gap 4 mmol/L (4-12); Aspartate Amino Transferase 16 U/L (17-59); Blood Urea Nitrogen 85 mg/dL (9-20); Carbon Dioxide 37 mmol/L (22-30); Chloride 96 mmol/L (98-107); Estimated CRCL calculation 29 ml/min; Estimated Glomerular Filt Rate 40; Glucose 203 mg/dL (65-110); Potassium 4.1 mmol/L (3.4-5.0); Sodium 137 mmol/L (137-145)
[2024-06-15 08:03] LABS: Glucose Point of Care 202 mg/dl (65-105)
[2024-06-15] MEDS: ATROPINE SULFATE 1% OPHTH SOLN 5 ML BOTTLE 1 DROP EACH EYE ×2 (08:39→20:15)
[2024-06-15] MEDS: prednisoLONE ACETATE 1% OPHTH 5 ML 1 DROP RIGHT EYE ×2 (08:39→20:15)
[2024-06-15] MEDS: INSULIN ASPART (*BKC) 100 UNITS/ML SUB-Q ×3 (08:42→20:15)
[2024-06-15] MEDS: METOPROLOL SUCCINATE EXT REL 12.5 MG TABCR PO (08:50)
[2024-06-15] MEDS: PANTOPRAZOLE 40 MG TABLET PO (08:50)
[2024-06-15] MEDS: FERROUS SULFATE 325 MG TABLET DR BY MOUTH ×2 (08:50→17:20)
[2024-06-15] MEDS: FOLIC ACID 1 MG TABLET PO (08:50)
[2024-06-15] MEDS: FINASTERIDE 5 MG TABLET PO (08:50)
[2024-06-15] MEDS: DOXYCYCLINE HYCLATE 100 MG TABLET PO ×2 (08:50→20:14)
[2024-06-15] MEDS: AMOXICILLIN/CLAVULANATE K 875-125 MG TAB 1 TABLET PO ×2 (08:50→20:15)
[2024-06-15] MEDS: BUMETANIDE 1 MG TABLET PO ×2 (08:50→17:21)
[2024-06-15] MEDS: FLUTICASONE/UMECLIDIN/VILANTER 100-62.5-25 MCG ELLIPTA 1 PUFF INHALATION (09:33)
[2024-06-15] MEDS: ACETAMINOPHEN 325 MG TABLET 650 MG PO (11:30)
[2024-06-15 12:08] LABS: Glucose Point of Care 196 mg/dl (65-105)
[2024-06-15 12:21] LABS: SARS-CoV-2 RNA PCR Negative (Negative)
--- NOTE | 2024-06-15 14:19 | PCOTNOTE ---
Attempted to see Patient at this time. Patient is in bed and stated he just got back into bed and plans to be discharged this afternoon, Patient declined.
--- NOTE | 2024-06-15 15:48 | P.PNIM_ITS ---
Progress Note: A&P Assessment and Plan (1) Acute respiratory failure with hypercapnia: Code(s): J96.02 - Acute respiratory failure with hypercapnia Status: Acute Assessment and Plan: bc negative transition to oral abx dc bipap tonight try cpap pts own and dc effie (2) CHF exacerbation: Code(s): I50.9 - Heart failure, unspecified Status: Acute Assessment and Plan: transition to oral diuretics Hold home dose torsemide 20 mg p.o. b.i.d. Continue Bumex 1 mg p.o. b.i.d. Continue home dose metoprolol succinate 12.5 mg p.o. q.d. Left ventricular ejection fraction 40-45% pt will need voiding trail today (3) DM2 (diabetes mellitus, type 2): Code(s): E11.9 - Type 2 diabetes mellitus without complications Status: Chronic Assessment and Plan: Patient will need a diabetic diet Accu-Cheks q.6 hours SSI (4) Chronic renal failure, stage 3 (moderate): Code(s): N18.30 - Chronic kidney disease, stage 3 unspecified Status: Acute Assessment and Plan: Avoid nephrotoxic medications will receiving high-dose Lasix CKD 4 (5) Chronic respiratory failure with hypoxia: Code(s): J96.11 - Chronic respiratory failure with hypoxia Status: Chronic Assessment and Plan: 2 L nasal cannula baseline Plan Medications were reviewed from [place]. patient was discharged from [place] on May 30 with torsemide 20 mg p.o. b.i.d. and metoprolol 12.5 mg p.o. q.d.. Advised to follow-up with the primary care physician for his CKD stage 4 and heart failure. Subjective Date/time seen: 06/15/24 15:48 Interval history: Interval history: 84-year-old male with a past medical history of CAD(s/p CABG 2004,PCI 2005), HFrEF (EF 45-50% 05/2024), s/p [employer] CLERK and ICD,CKD4, HTN, COPD(2L) ,AFUA,CVA,T2DM,A.Fib, (s/p Bio AVR 2013),rib fracture(2023), and urothelial ca. patient was discharged from [place] on May. Patient was initially admitted in the ICU for noninvasive positive pressure ventilation. Where he was treated for respiratory distress with a BiPAP / , Lasix, metolazone, steroids and antibiotics. Later his code status has been changed from full code to DNR after discussing with with him and his . In regards to heart failure medications patient was discharged with torsemide 20 mg b.i.d. and metoprolol succinate 12.5 mg p.o. q.d. Pt to stop bipap and try his own cpap settings tonight ok to dc effie Pt to have voiding trail today Exam Narrative: General: Chronically ill appearing, appears stated age. Respiratory: Course to auscultation bilaterally. Cardiovascular: Regular rate and rhythm, normal S1-S2 upon auscultation. Murmur Abdomen: Soft, round, no pulsatile masses, nondistended and nontender. No rebound, no guarding. No CVA tenderness, no hepatosplenomegaly. Bowel sounds present to all four quadrants. No high pitch or tinkling sounds, resonant to percussion. Extremities: No cyanosis, clubbing, or edema present. Pulses are palpable 2/2. Active ROM to all four extremities. Neuro: Alert and orientated x 4. PERRLA. Cranial nerves 2-12 intact without focal deficit. Skin: Warm, dry, and intact, without rash, erythema, or lesion. Psych: pleasant, cooperative, normal speech, normal affect, no hallucinations Objective Data Vital Signs Vital Signs: Vital Signs - 24 hr 06/14/24 20:26 06/14/24 20:44 06/14/24 22:44 Temperature 36.6 C Pulse Rate 60 66 Respiratory Rate 20 26 H Blood Pressure 106/49 L Pulse Oximetry 99 99 96 Oxygen Delivery Nasal Cannula BiPAP Oxygen Flow Rate 2 Fraction of Inspired Oxygen 06/15/24 02:48 06/15/24 06:00 06/15/24 08:00 Temperature 36.7 C Pulse Rate 66 60 60 Respiratory Rate 28 H 22 H Blood Pressure 117/48 L Pulse Oximetry 96 100 98 Oxygen Delivery BiPAP Nasal Cannula Oxygen Flow Rate 2 Fraction of Inspired Oxygen 06/15/24 08:50 06/15/24 09:33 06/15/24 09:33 Temperature Pulse Rate 60 68 Respiratory Rate 20 Blood Pressure Pulse Oximetry 97 Oxygen Delivery Nasal Cannula Oxygen Flow Rate 2 Fraction of Inspired Oxygen 28 06/15/24 10:55 06/15/24 14:38 Temperature 36.1 C L Pulse Rate 59 L Respiratory Rate 18 Blood Pressure 105/45 L Pulse Oximetry 100 Oxygen Delivery Nasal Cannula Oxygen Flow Rate 2 Fraction of Inspired Oxygen Intake/Output Intake/Output: Intake & Output 06/12/24 06/13/24 06/14/24 06/15/24 23:59 23:59 23:59 23:59 Intake Total 840 720 630 820 Output Total 900 1000 700 550 Balance -60 -280 -70 270 Meds/Results Medications: Active Medications Generic Name Dose Route Start Last Admin Trade Name Freq PRN Reason Stop Dose Admin Acetaminophen 650 mg 06/10/24 01:25 06/15/24 11:30 Acetaminophen 325 Mg Tablet PO 650 mg Q4H PRN Administration Mild Pain (1-3) or Fever Albuterol 2 puff 06/11/24 12:15 Albuterol Sulfate (*Sp) Aerosol 1 Puff INHALATION QID PRN Shortness Of Breath Or Wheezing Amoxicillin/Clavulanate Potassium 1 tablet 06/12/24 11:55 06/15/24 08:50 Amoxicillin/Clavulanate K 875-125 Mg Tab PO 06/15/24 21:01 1 tablet Q12HR WARD Administration Atropine Sulfate 1 drop 06/11/24 21:00 06/15/24 08:39 Atropine Sulfate 1% Ophth Soln 5 Ml Bottle EACH EYE 1 drop Q12HR WARD Administration Bumetanide 1 mg 06/13/24 09:50 06/15/24 08:50 Bumetanide 1 Mg Tablet PO 1 mg BID WARD Administration Dextrose 12.5 gm 06/10/24 01:20 Dextrose 50% 25 Gm/50 Ml Syringe IV PUSH PRN PRN Hypoglycemia Protocol Doxycycline Hyclate 100 mg 06/12/24 13:00 06/15/24 08:50 Doxycycline Hyclate 100 Mg Tablet PO 06/15/24 21:01 100 mg Q12HR WARD Administration Enoxaparin Sodium 30 mg 06/10/24 09:00 06/15/24 07:52 Enoxaparin 30 Mg/0.3 Ml Syringe SUB-Q Not Given DAILY WARD Ferrous Sulfate 325 mg 06/11/24 17:00 06/15/24 08:50 Ferrous Sulfate [address] BY MOUTH 325 mg BID WARD Administration Finasteride 5 mg 06/11/24 12:30 06/15/24 08:50 Finasteride 5 Mg Tablet PO 5 mg DAILY WARD Administration Fluticasone/Umeclidinium/Vilanterol 1 puff 06/11/24 12:35 06/15/24 09:33 Fluticasone/Umeclidin/Vilanter 100-62.5-25 Mcg Ellipta INHALATION 1 puff DAILYRT WARD Administration Folic Acid 1 mg 06/11/24 12:30 06/15/24 08:50 Folic Acid 1 Mg Tablet PO 1 mg DAILY WARD Administration Glucagon 1 mg 06/10/24 01:20 Glucagon For Inj 1 Mg Vial IM PRN PRN Hypoglycemia Protocol Glucose 15 gm 06/10/24 01:20 Glucose Oral Gel 15 Gm Of Glucse In 37.5 Gm Tube PO PRN PRN Hypoglycemia Protocol Guaifenesin 1,200 mg 06/11/24 12:30 Guaifenesin 12 Hr 600 Mg Tabcr PO Q12HR PRN Cough Dextrose 1,000 mls @ 100 mls/hr 06/10/24 01:20 Dextrose 5% 1,000 Ml IVPB PRN PRN Hypoglycemia Protocol Insulin Aspart 3 - 6 units 06/12/24 08:00 06/15/24 12:14 Insulin Aspart (*Bkc) 100 Units/Ml SUB-Q Not Given [facility] WARD Protocol Metoprolol Succinate 12.5 mg 06/11/24 12:35 06/15/24 08:50 Metoprolol Succinate Ext Rel 12.5 Mg Tabcr PO 12.5 mg QAM WARD Administration Pantoprazole Sodium 40 mg 06/11/24 12:30 06/15/24 08:50 Pantoprazole 40 Mg Tablet PO 40 mg QAM WARD Administration Prednisolone Acetate 1 drop 06/11/24 21:00 06/15/24 08:39 Prednisolone Acetate 1% Ophth 5 Ml RIGHT EYE 1 drop Q12HR WARD Administration Pregabalin 25 mg 06/11/24 21:00 06/14/24 20:44 Pregabalin (*Crx) 25 Mg Capsule PO 25 mg HS WARD Administration Tamsulosin HCl 0.4 mg 06/11/24 18:00 06/14/24 17:39 Tamsulosin Hcl 0.4 Mg Capsule PO 0.4 mg QPM WARD Administration Radiology Results: ITS Impressions Chest X-Ray 06/09/24 09:14 IMPRESSION: 1. Airspace opacities in the mid and lower lung zones, consistent with atelectasis versus pneumonia. 2. Small pleural effusions. 3. Cardiomegaly. Labs Labs: Laboratory Results - last 24 hr 06/14/24 06/14/24 06/15/24 16:42 20:08 05:09 WBC 4.8 RBC 3.25 L Hgb 10.0 L Hct 32.4 L MCV 99.7 MCH 30.8 MCHC 30.9 L RDW 14.6 H Plt Count 92 L MPV 10.2 % Immature Plt Fraction 3.3 Sodium 137 Potassium 4.1 Chloride 96 L Carbon Dioxide 37 H Anion Gap 4 BUN 85 H Creatinine 1.64 H Estim Creat Clear Calc 29 Estimated GFR 40 L Glucose 203 H POC Capillary Glucose 261 H 196 H Calcium 8.0 L Total Bilirubin 1.0 AST 16 L ALT 12 Alkaline Phosphatase 62 Total Protein 6.0 L Albumin 3.2 L SARS-CoV-2 RNA (RT-PCR) 06/15/24 06/15/24 06/15/24 07:46 11:36 11:45 WBC RBC Hgb Hct MCV MCH MCHC RDW Plt Count MPV % Immature Plt Fraction Sodium Potassium Chloride Carbon Dioxide Anion Gap BUN Creatinine Estim Creat Clear Calc Estimated GFR Glucose POC Capillary Glucose 202 H 196 H Calcium Total Bilirubin AST ALT Alkaline Phosphatase Total Protein Albumin SARS-CoV-2 RNA (RT-PCR) Negative
[2024-06-15 16:47] LABS: Glucose Point of Care 254 mg/dl (65-105)
[2024-06-15] MEDS: TAMSULOSIN HCL 0.4 MG CAPSULE PO (17:21)
[2024-06-15] MEDS: ATORVASTATIN 40 MG TABLET PO (20:14)
[2024-06-15] MEDS: PREGABALIN (*CRX) 25 MG CAPSULE PO (20:14)
[2024-06-15 20:29] LABS: Glucose Point of Care 203 mg/dl (65-105)
[2024-06-16 06:00] VITALS: BP 114/50; PULSE 60; RESP 18; TEMP 36.7; O2SAT 100
[2024-06-16 06:32] LABS: Anion Gap 9 mmol/L (4-12); Blood Urea Nitrogen 84 mg/dL (9-20); Calcium 8.1 mg/dL (8.4-10.2); Carbon Dioxide 32 mmol/L (22-30); Chloride 94 mmol/L (98-107); Estimated CRCL calculation 30 ml/min; Estimated Glomerular Filt Rate 42; Glucose 199 mg/dL (65-110); Magnesium 1.7 mg/dL (1.6-2.3); Potassium 4.2 mmol/L (3.4-5.0); Sodium 135 mmol/L (137-145)
[2024-06-16 08:01] LABS: Glucose Point of Care 168 mg/dl (65-105)
[2024-06-16] MEDS: MAGNESIUM OXIDE 400 MG TABLET PO (08:42)
[2024-06-16] MEDS: FOLIC ACID 1 MG TABLET PO (08:42)
[2024-06-16] MEDS: PANTOPRAZOLE 40 MG TABLET PO (08:42)
[2024-06-16] MEDS: FINASTERIDE 5 MG TABLET PO (08:42)
[2024-06-16] MEDS: FERROUS SULFATE 325 MG TABLET DR BY MOUTH (08:42)
[2024-06-16] MEDS: ENOXAPARIN 30 MG/0.3 ML SYRINGE SUB-Q (08:42)
[2024-06-16] MEDS: METOPROLOL SUCCINATE EXT REL 12.5 MG TABCR PO (08:42)
[2024-06-16] MEDS: SITagliptin PHOSPHATE 25 MG TABLET PO (08:42)
[2024-06-16] MEDS: BUMETANIDE 1 MG TABLET PO (08:42)
[2024-06-16] MEDS: ATROPINE SULFATE 1% OPHTH SOLN 5 ML BOTTLE 1 DROP EACH EYE (08:43)
[2024-06-16] MEDS: prednisoLONE ACETATE 1% OPHTH 5 ML 1 DROP RIGHT EYE (08:43)
[2024-06-16 09:11] VITALS: O2SAT 97
[2024-06-16] MEDS: FLUTICASONE/UMECLIDIN/VILANTER 100-62.5-25 MCG ELLIPTA 1 PUFF INHALATION (09:11)
[2024-06-16] MEDS: UMECLIDINIUM BROMIDE 62.5 MCG ELLIPTA 1 PUFF INHALATION (09:11)
--- NOTE | 2024-06-16 10:02 | PCNWS ---
Weekly nutritional screen. Patient is tolerating current Diabetic diet with adequate intake 75-100%. No weight loss reported. No nutritional recommendations at this time.
[2024-06-16 11:30] LABS: Glucose Point of Care 229 mg/dl (65-105)
[2024-06-16] MEDS: INSULIN ASPART (*BKC) 100 UNITS/ML SUB-Q (11:56)
--- NOTE | 2024-06-16 12:50 | P.PNIM_ITS ---
Progress Note: A&P Assessment and Plan (1) Acute respiratory failure with hypercapnia: Code(s): J96.02 - Acute respiratory failure with hypercapnia Status: Acute Assessment and Plan: bc negative transition to oral abx dc bipap tonight try cpap pts own and dc effie (2) CHF exacerbation: Code(s): I50.9 - Heart failure, unspecified Status: Acute Assessment and Plan: transition to oral diuretics Hold home dose torsemide 20 mg p.o. b.i.d. Continue Bumex 1 mg p.o. b.i.d. Continue home dose metoprolol succinate 12.5 mg p.o. q.d. Left ventricular ejection fraction 40-45% pt will need voiding trail today (3) DM2 (diabetes mellitus, type 2): Code(s): E11.9 - Type 2 diabetes mellitus without complications Status: Chronic Assessment and Plan: Patient will need a diabetic diet Accu-Cheks q.6 hours SSI (4) Chronic renal failure, stage 3 (moderate): Code(s): N18.30 - Chronic kidney disease, stage 3 unspecified Status: Acute Assessment and Plan: Avoid nephrotoxic medications will receiving high-dose Lasix CKD 4 (5) Chronic respiratory failure with hypoxia: Code(s): J96.11 - Chronic respiratory failure with hypoxia Status: Chronic Assessment and Plan: 2 L nasal cannula baseline Plan Medications were reviewed from [place]. patient was discharged [place] on May 30 with torsemide 20 mg p.o. b.i.d. and metoprolol 12.5 mg p.o. q.d.. Advised to follow-up with the primary care physician for his CKD stage 4 and heart failure. Subjective Date/time seen: 06/16/24 12:50 Interval history: Interval history: 84-year-old male with a past medical history of CAD(s/p CABG 2004,PCI 2005), HFrEF (EF 45-50% 05/2024), s/p [employer] SINGER and ICD,CKD4, HTN, COPD(2L) ,AFUA,CVA,T2DM,A.Fib, (s/p Bio AVR 2013),rib fracture(2023), and urothelial ca. patient was discharged from [place] on May. Patient was initially admitted in the ICU for noninvasive positive pressure ventilation. Where he was treated for respiratory distress with a BiPAP , Lasix, metolazone, steroids and antibiotics. Later his code status has been changed from full code to DNR after discussing with with him and his . In regards to heart failure medications patient was discharged with torsemide 20 mg b.i.d. and metoprolol succinate 12.5 mg p.o. q.d. Pt to stop bipap and try his own cpap settings isaías montenegro to danielle chou Pt to have voiding trail today Review of Systems Review of Systems: 12 systems were reviewed and are negativ e except for as per HPI. ROS unobtainable: Yes unobtainable due to medical condition Exam Narrative: General: Chronically ill appearing, appears stated age. Respiratory: Course to auscultation bilaterally. Cardiovascular: Regular rate and rhythm, normal S1-S2 upon auscultation. Murmur Abdomen: Soft, round, no pulsatile masses, nondistended and nontender. No rebound, no guarding. No CVA tenderness, no hepatosplenomegaly. Bowel sounds present to all four quadrants. No high pitch or tinkling sounds, resonant to percussion. Extremities: No cyanosis, clubbing, or edema present. Pulses are palpable 2/2. Active ROM to all four extremities. Neuro: Alert and orientated x 4. PERRLA. Cranial nerves 2-12 intact without focal deficit. Skin: Warm, dry, and intact, without rash, erythema, or lesion. Psych: pleasant, cooperative, normal speech, normal affect, no hallucinations Objective Data Vital Signs Vital Signs: Vital Signs - 24 hr 06/15/24 14:38 06/15/24 20:14 06/15/24 20:15 Temperature 97.0 F L Pulse Rate 59 L 61 Respiratory Rate 18 Blood Pressure 105/45 L Pulse Oximetry 100 100 99 Oxygen Delivery CPAP CPAP Oxygen Flow Rate 2 06/15/24 22:00 06/16/24 02:02 06/16/24 06:00 Temperature 97.4 F L 98.0 F Pulse Rate 60 60 Respiratory Rate 22 H 18 Blood Pressure 99/48 L 114/50 L Pulse Oximetry 100 100 Oxygen Delivery CPAP Oxygen Flow Rate 06/16/24 09:11 Temperature Pulse Rate Respiratory Rate Blood Pressure Pulse Oximetry 97 Oxygen Delivery Nasal Cannula Oxygen Flow Rate 2 Intake/Output Intake/Output: Intake & Output 06/13/24 06/14/24 06/15/24 06/16/24 23:59 23:59 23:59 23:59 Intake Total 361 010 7824 360 Output Total 0924 810 5370 700 Balance -280 -70 150 -340 Meds/Results Medications: Active Medications Generic Name Dose Route Start Last Admin Trade Name Freq PRN Reason Stop Dose Admin Acetaminophen 650 mg 06/10/24 01:25 06/15/24 11:30 Acetaminophen 325 Mg Tablet PO 650 mg Q4H PRN Administration Mild Pain (1-3) or Fever Albuterol 2 puff 06/11/24 12:15 Albuterol Sulfate (*Sp) Aerosol 1 Puff INHALATION QID PRN Shortness Of Breath Or Wheezing Atorvastatin Calcium 40 mg 06/15/24 21:00 06/15/24 20:14 Atorvastatin 40 Mg Tablet PO 40 mg HS WARD Administration Atropine Sulfate 1 drop 06/11/24 21:00 06/16/24 08:43 Atropine Sulfate 1% Ophth Soln 5 Ml Bottle EACH EYE 1 drop Q12HR WARD Administration Bumetanide 1 mg 06/13/24 09:50 06/16/24 08:42 Bumetanide 1 Mg Tablet PO 1 mg BID WARD Administration Dextrose 12.5 gm 06/10/24 01:20 Dextrose 50% 25 Gm/50 Ml Syringe IV PUSH PRN PRN Hypoglycemia Protocol Enoxaparin Sodium 30 mg 06/10/24 09:00 06/16/24 08:42 Enoxaparin 30 Mg/0.3 Ml Syringe SUB-Q 30 mg DAILY WARD Administration Ferrous Sulfate 325 mg 06/11/24 17:00 06/16/24 08:42 Ferrous Sulfate [address] BY MOUTH 325 mg BID WARD Administration Finasteride 5 mg 06/11/24 12:30 06/16/24 08:42 Finasteride 5 Mg Tablet PO 5 mg DAILY WARD Administration Fluticasone/Umeclidinium/Vilanterol 1 puff 06/11/24 12:35 06/16/24 09:11 Fluticasone/Umeclidin/Vilanter 100-62.5-25 Mcg Ellipta INHALATION 1 puff DAILYRT WARD Administration Folic Acid 1 mg 06/11/24 12:30 06/16/24 08:42 Folic Acid 1 Mg Tablet PO 1 mg DAILY WARD Administration Glucagon 1 mg 06/10/24 01:20 Glucagon For Inj 1 Mg Vial IM PRN PRN Hypoglycemia Protocol Glucose 15 gm 06/10/24 01:20 Glucose Oral Gel 15 Gm Of Glucse In 37.5 Gm Tube PO PRN PRN Hypoglycemia Protocol Guaifenesin 1,200 mg 06/11/24 12:30 Guaifenesin 12 Hr 600 Mg Tabcr PO Q12HR PRN Cough Dextrose 1,000 mls @ 100 mls/hr 06/10/24 01:20 Dextrose 5% 1,000 Ml IVPB PRN PRN Hypoglycemia Protocol Insulin Aspart 3 - 6 units 06/12/24 08:00 06/16/24 11:56 Insulin Aspart (*Bkc) 100 Units/Ml SUB-Q 3 units [facility] WARD Administration Protocol Isosorbide Mononitrate 15 mg 06/15/24 17:00 Isosorbide Mononitrate 15 Mg Tab.Er.24h PO BID WARD Magnesium Oxide 400 mg 06/16/24 09:00 06/16/24 08:42 Magnesium Oxide 400 Mg Tablet PO 400 mg DAILY AWRD Administration Metolazone 2.5 mg 06/22/24 09:00 Metolazone 2.5 Mg Tablet PO WEEKLY WARD Metoprolol Succinate 12.5 mg 06/11/24 12:35 06/16/24 08:42 Metoprolol Succinate Ext Rel 12.5 Mg Tabcr PO 12.5 mg QAM WARD Administration Miscellaneous Information 0 each 06/15/24 00:01 Isosorbide - Please Clarify Drug/Dose/Directions XX 07/15/24 00:00 [facility] Miscellaneous Information 0 each 06/15/24 00:01 Metolazone Twice A Week - What Days Do They Take This? When Is Next Dose Due? XX 07/15/24 00:00 [facility] Nitroglycerin 0.4 mg 06/15/24 15:51 Nitroglycerin Sl 0.4 Mg Tablet SUBLINGUAL Q5MIN PRN Chest Pain Pantoprazole Sodium 40 mg 06/11/24 12:30 06/16/24 08:42 Pantoprazole 40 Mg Tablet PO 40 mg QAM [facility] Administration Prednisolone Acetate 1 drop 06/11/24 21:00 06/16/24 08:43 Prednisolone Acetate 1% Ophth 5 Ml RIGHT EYE 1 drop Q12HR WARD Administration Pregabalin 25 mg 06/11/24 21:00 06/15/24 20:14 Pregabalin (*Crx) 25 Mg Capsule PO 25 mg HS WARD Administration Sitagliptin Phosphate 25 mg 06/16/24 09:00 06/16/24 08:42 Sitagliptin Phosphate 25 Mg Tablet PO 25 mg QAM WARD Administration Tamsulosin HCl 0.4 mg 06/11/24 18:00 06/15/24 17:21 Tamsulosin Hcl 0.4 Mg Capsule PO 0.4 mg QPM WARD Administration Umeclidinium [place] 1 puff 06/16/24 08:00 06/16/24 09:11 Umeclidinium [place] 62.5 Mcg Ellipta INHALATION 1 puff DAILYRT WARD Administration Radiology Results: ITS Impressions Chest X-Ray 06/09/24 09:14 IMPRESSION: 1. Airspace opacities in the mid and lower lung zones, consistent with atelectasis versus pneumonia. 2. Small pleural effusions. 3. Cardiomegaly. Labs Labs: Laboratory Results - last 24 hr 06/15/24 06/15/24 06/16/24 16:36 20:09 05:57 Sodium 135 L Potassium 4.2 Chloride 94 L Carbon Dioxide 32 H Anion Gap 9 BUN 84 H Creatinine 1.60 H Estim Creat Clear Calc 30 Estimated GFR 42 L Glucose 199 H POC Capillary Glucose 254 H 203 H Calcium 8.1 L Magnesium 1.7 06/16/24 06/16/24 07:57 11:24 Sodium Potassium Chloride Carbon Dioxide Anion Gap BUN Creatinine Estim Creat Clear Calc Estimated GFR Glucose POC Capillary Glucose 168 H 229 H Calcium Magnesium Quality VTE Prophylaxis VTE prophylaxis: mechanical ordered and pharmacologic ordered
--- NOTE | 2024-06-16 13:30 | P.DS_ITS ---
DS: Admitting Diagnosis Discharge Date 06/16/24 Admitting Diagnosis Shortness of breath DS: Discharge Diagnosis Discharge Diagnosis (1) CHF exacerbation: Code(s): I50.9 - Heart failure, unspecified Status: Acute DS: Summary Hospital Course Hospital Course: 84 old male with medical history of CABG, pacemaker, CHF and COPD presents the hospital shortness of breath. Patient states that he has been short of breath for the past couple months however it is progressively worse the last 2 days. HPI is limited due to patient being on BiPAP and difficult to understand. Per the notes patient has been taking his Lasix as prescribed. He states that he is being having difficulties breathing for the last 2 months with lower extremity edema. The last 2 days he state or progressively worse so he came into the emergency room. While he was in the emergency room he had to be placed on BiPAP due to severe hypoxia. [facility] In the ED the patient is anemic at 10.6, ABG shows a pH of 7.159, pCO2 77, PO2 95, HC03 of 26. Patient's potassium is 5.1, BUN is 98, creatinine is 1.97, blood sugar 237, P troponin was 0.085, BNP is over 30,000, chest x-ray shows opacities consistent with atelectasis versus pneumonia, small pleural effusion cardiomegaly. EKG shows V paced rate of 73. Patient was managed with IV bumex and now at baseline oxygen 2 liters oxygen. Discharged back on home diuretics regimen Bumex. Torsemide held as CHRISTIAN on CKD resolved due to holding Torsemide. Cardiology was involved. Continue other home meds. F/u [facility] PCP in 3-5 days, f/u with cardiology as instructed Time Spent with Patient Time attestation: Total time spent providing and/or coordinating discharge services: DS: Data Data Completed and Pending Labs on day of discharge: Labs from last 24 hours 06/16/24 06/16/24 06/16/24 11:24 07:57 05:57 Sodium 135 L Potassium 4.2 Chloride 94 L Carbon Dioxide 32 H Anion Gap 9 BUN 84 H Creatinine 1.60 H Estim Creat Clear Calc 30 Estimated GFR 42 L Glucose 199 H POC Capillary Glucose 229 H 168 H Calcium 8.1 L Magnesium 1.7 06/15/24 06/15/24 20:09 16:36 Sodium Potassium Chloride Carbon Dioxide Anion Gap BUN Creatinine Estim Creat Clear Calc Estimated GFR Glucose POC Capillary Glucose 203 H 254 H Calcium Magnesium Discharge Plan Discharge Attending physician on discharge: Elzbieta Jamison Consulting providers: Sebastien Schmidt Discharging Clinician: Elzbieta Jamison Anticipated Discharge Date/Time: 06/16/24 13:26 Patient Disposition: Inpatient Rehab Facility Activity: as tolerated Diet: heart healthy Patient Language: Nigerien Stand Alone Forms: General Discharge Information Discharge Medications: Continued atorvastatin 40 mg Tablet 40 mg PO HS cyanocobalamin (vitamin B-12) 1,000 mcg Tablet 1,000 mcg PO DAILY aspirin 81 mg Tablet,Chewable 81 mg PO DAILY albuterol sulfate 90 mcg/actuation Hfa Aerosol Inhaler 2 puff INHALATION QID PRN (Reason: Shortness Of Breath Or Wheezing) Patient Comments: pt states he was taking prior to being hospitalized in the [place], although hasn't had since his discharge from that hospital on Saturday. cholecalciferol (vitamin D3) 25 mcg (1,000 unit) Tablet 25 mcg PO DAILY alogliptin 12.5 mg Tablet 12.5 mg PO DAILY tamsulosin [Flomax] 0.4 mg Capsule 0.4 mg PO .pm pantoprazole [Protonix] 40 mg Tablet,Delayed Release (Dr/Ec) 40 mg PO QAM ferrous sulfate 325 mg (65 mg iron) Tablet 325 mg PO BID isosorbide mononitrate 10 mg Tablet 15 mg PO BID tiotropium bromide 2.5 mcg/actuation Mist 2 puff INHALATION DAILY magnesium oxide 400 mg magnesium Tablet 400 mg PO DAILY nitroglycerin [Nitrostat] 0.4 mg Tablet, Sublingual 0.4 mg sublingual Q5MIN PRN (Reason: Chest Pain) Qty: 25 0RF bumetanide 1 mg Tablet 1 mg PO BID Qty: 60 0RF metolazone 2.5 mg tablet 2.5 mg PO WEEKLY Qty: 30 0RF Rx Instructions: twice a week atropine sulfate (PF) 1 % dropperette 1 drp RIGHT EYE .Q12HR Breztri Aerosphere 160-9-4.8 mcg/actuation HFA aerosol inhaler 2 inh inhalation .Q12HR calcitriol 0.25 mcg capsule 0.25 mcg PO 3XW Rx Instructions: TAKES diclofenac sodium 1 % gel 2 g topical QID PRN (Reason: pain) Rx Instructions: apply to Right shoulder /Right hand as needed for pain; finasteride 5 mg tablet 5 mg PO DAILY folic acid 1 mg tablet 1 mg PO DAILY guaifenesin [G-Fenesin] 400 mg tablet 400 mg PO Q4H PRN (Reason: cough) prednisolone acetate (PF) 1 % drops,suspension 1 drp RIGHT EYE Q12H sitagliptin 25 mg tablet 25 mg PO DAILY metoprolol succinate [Toprol XL] 25 mg Tablet Extended Release 24 Hr 25 mg PO QAM Rx Instructions: take 1/2 tablet daily pregabalin 25 mg capsule 25 mg PO HS Discontinued torsemide 20 mg tablet 20 mg PO BID Date of admission: 06/09/24 14:18 Primary Care Provider: [facility] Admitting Provider: Javier Viera Attending physician on admission: Javier Viera Condition: Guarded Prognosis
[2024-06-16 14:00] VITALS: BP 128/60; PULSE 60; RESP 20; TEMP 36.1; O2SAT 100
== END 2024-06-16 16:40 | DRG 291 ==
LOC: ANHED 14:17 → ANHIMU 06-10 11:42 → ANH3MEDSUR 06-16 13:26 → ANHIMU 06-18 16:21
PROVIDERS: Family Medicine; General Practice; Nurse Practitioner Acute Care; Nurse Practitioner Gerontology; Admitting Provider Hospitalist; Emergency Provider Emergency Medicine; Visit Provider Internal Medicine
DX: I13.0 Hypertensive heart and chronic kidney disease with heart failure and stage 1 through stage 4 chronic kidney disease, or unspecified chronic kidney disease (principal); I50.23 Acute on chronic systolic (congestive) heart failure; J96.02 Acute respiratory failure with hypercapnia; N18.4 Chronic kidney disease, stage 4 (severe); J96.11 Chronic respiratory failure with hypoxia; E11.22 Type 2 diabetes mellitus with diabetic chronic kidney disease; E78.5 Hyperlipidemia, unspecified; G47.33 Obstructive sleep apnea (adult) (pediatric); H54.7 Unspecified visual loss; I48.91 Unspecified atrial fibrillation; I25.10 Atherosclerotic heart disease of native coronary artery without angina pectoris; J44.9 Chronic obstructive pulmonary disease, unspecified; K46.9 Unspecified abdominal hernia without obstruction or gangrene; N40.0 Benign prostatic hyperplasia without lower urinary tract symptoms; R00.0 Tachycardia, unspecified; Z66 Do not resuscitate; Z79.82 Long term (current) use of aspirin; Z20.822 Contact with and (suspected) exposure to COVID-19; Z79.84 Long term (current) use of oral hypoglycemic drugs; Z85.51 Personal history of malignant neoplasm of bladder; Z86.73 Personal history of transient ischemic attack (TIA), and cerebral infarction without residual deficits; Z95.2 Presence of prosthetic heart valve; Z95.1 Presence of aortocoronary bypass graft; Z95.5 Presence of coronary angioplasty implant and graft; Z87.891 Personal history of nicotine dependence; Z77.098 Contact with and (suspected) exposure to other hazardous, chiefly nonmedicinal, chemicals; Z95.0 Presence of cardiac pacemaker
CPT/HCPCS: 36415; 36600; 71046; 80048; 80053; 82375; 82565; 82805; 82948; 83050; 83735; 83880; 84484; 85018; 85025; 85027; 85055; 85610; 85730; 87040; 87635; 87637; 87641; 93005; 93306; 94002; 94003; 94640; 96374; 96375; 97110; 97116; 97161; 97165; 97530; 97535; 99285; A9270; J0692; J1650; J1815; J1939; J1940; J2919; J3370

== ENCOUNTER 2024-06-24 16:30 | Inpatient (IN) | payer MEDICARE, OTHER, SELFPAY ==
[2024-06-24] VITALS (11 sets, daily range): BP systolic 100–107; BP diastolic 54–86; PULSE 60–86; RESP 13–19; TEMP 36.6–36.9; O2SAT 99–100
--- NOTE | ~2024-06-24 | XR_ITS ---
EXAMINATION: XR chest 1V portable DATE: 06/26/2024 05:37 INDICATION: Shortness of breath. TECHNIQUE: A single frontal view of the chest was obtained. COMPARISON: Chest view 06/24/2024 FINDINGS: There are airspace opacities in the mid and lower lung zones. There are small pleural effus ions. No pneumothorax. Cardiomegaly is noted. There are changes of heart valve replacement. There is a left chest pacer with leads in right ventricle and coronary sinus. IMPRESSION: 1. Stable airspace opacities in the mid and lower lung zones, consistent with atelectasis versus pneu monia. 2. Small pleural effusions. 3. Cardiomegaly. Reviewed, dictated and finalized at location A. IMPRESSION: 1. Stable airspace opacities in the mid and lower lung zones, consistent with a telectasis versus pneumonia. 2. Small pleural effusions. 3. Cardiomegaly.
--- NOTE | ~2024-06-24 | NM_ITS ---
EXAMINATION: NM lung vent and perfusion DATE: 06/26/2024 13:39 INDICATION: Shortness of breath and lower limb swelling TECHNIQUE: 15.3 mCi xenon-133 by inhalation and 4.4 mCi Tc-99m MAA by intravenous route. Scintigraph ic images of the chest were obtained. COMPARISON: Chest radiograph dated 06/26/2024 FINDINGS: Left lung volume is decreased with matched asymmetrically decreased activity on the posterior ventila tion and perfusion images. There is prominent air trapping in the left upper lung zone on the washout images. Large matched bandlike ventilation and perfusion defect projecting across the left mid lung on the posterior scintigrams which on the lateral image. Correspond to the fissure and likely related to an effusion. There are couple moderate-sized perfusion defects at the right middle lobe and anter ior segment of the right upper lobe, moderate sized perfusion defect at the lingula and small perfusi on defect at the basilar left lower lobe along the lateral and oblique images. There are correspondin g airspace opacities in the bilateral mid and lower lung zones on the prior radiographs portions of w hich correspond to small bilateral pleural effusions. IMPRESSION: 1. No immediate probability for pulmonary embolism. Reviewed, dictated and finalized at location B.
--- NOTE | ~2024-06-24 | XR_ITS ---
EXAMINATION: XR chest 1V portable DATE: 07/02/2024 10:31 INDICATION: Shortness of breath TECHNIQUE: frontal view of the chest was obtained. COMPARISON: Chest radiograph dated 06/26/2024 FINDINGS: Persistent gradient of basilar predominant airspace opacities in the bilateral mid and lower lung zon es with blunting at the costophrenic angles consistent with small to moderate-sized bilateral posteri or layering pleural effusions and associated atelectasis and/or pneumonia. No pneumothorax. Cardiomeg mary kay. Median sternotomy wires and mediastinal surgical clips are seen, likely from prior coronary ary ry bypass grafting. There is also been prior aortic valve repair. Left sided cardiac pacemaker/AICD w ith lead tips terminating at the right ventricle and in the coronary vein overlying the apex of the l eft ventricle. IMPRESSION: 1. No significant change in small to moderate-sized bilateral pleural effusions with associated bibas ilar atelectasis and/or pneumonia. 2. Cardiomegaly. Reviewed, dictated and finalized at location A. IMPRESSION: 1. No significant change in small to moderate-sized bilateral pleural effusions with associated bibasilar atelectasis and/or pneumonia. 2. Cardiomegaly.
--- NOTE | ~2024-06-24 | XR_ITS ---
XR chest 1V Ordering provider: Manav Duarte MD History: 84 years Male with . AMS . Comparison: June 09, 2024 FINDINGS: MEDIASTINUM: The cardiac silhouette is moderately enlarged. Left bipolar pacemaker. Postoperative syed nges in the mediastinum. Congestive maciej. LUNGS: No pneumothorax. Bilateral interstitial thickening. Bilateral basal opacification with bilater al pleural effusion. OTHER: No free air under the diaphragm. IMPRESSION: Bilateral basal atelectasis versus pneumonia with bilateral pleural effusion. Cardiomegaly with cardiac decompensation and pulmonary edema. Clinical correlation advised. Reviewed, dictated and finalized at location A. IMPRESSION: Bilateral basal atelectasis versus pneumonia with bilateral pleural effusion. Cardiomegaly with cardiac decompensation and pulmonary edema. Clinical correlat ion advised.
--- NOTE | ~2024-06-24 | CT_ITS ---
CTA brain carotid Ordering provider: Manav Duarte MD History: . stroke . Comparison: None. Technique: CT angiogram head and neck was performed following timed intravenous injection of contrast . Thin slice axial images and reformatted coronal images were obtained. Three dimensional reformatted images of the brain were also obtained using a [employer] workstation. Radiation reduction technique ut ilized.The dose-length product was 1229.15 mGy-cm. 100 mL Omnipaque 350 was given IV. FINDINGS: HEAD: --ANTERIOR AND MIDDLE CEREBRAL ARTERIES AND BRANCHES: Normal caliber and contour. --INTERNAL CAROTID ARTERIES: Mild atheromatous disease but no significant stenosis. No occlusion. --BASILAR ARTERY AND BRANCHES: Slightly smaller caliber and normal contour. No atheromatous disease. --POSTERIOR CEREBRAL ARTERIES: The distal left posterior cerebral artery is not well demonstrated. Ot herwise Normal caliber and contour --POSTERIOR COMMUNICATING ARTERIES: Left posterior communicating artery continues as the posterior ce rebral artery. The right is not visualized which is probably related to congenital absence or small s ize. --ANEURYSM: None visualized. --BRAIN: Please refer to report of CT head performed the same day. --BONES AND SUPERFICIAL SOFT TISSUES: Please refer to report of CT head performed the same day. --PARANASAL SINUSES AND MASTOIDS: Please refer to report of CT head done the same day. NECK: --RIGHT CERVICAL CAROTID SYSTEM: Severe atheromatous disease of the carotid bulb and proximal interna l carotid artery. Percent stenosis per NASCET criteria is 50%. No carotid dissection. Otherwise, no s ignificant atheromatous disease or stenosis of the cervical carotid system. --LEFT CERVICAL CAROTID SYSTEM: Mild atheromatous disease of the carotid bulb and proximal internal c arotid artery without significant stenosis. Percent stenosis per NASCET criteria is 20% No carotid d issection. Otherwise, no significant atheromatous disease or stenosis of the cervical carotid system. --VERTEBRAL ARTERIES: Dominant right vertebral artery. Otherwise, Normal caliber and contour. --VISUALIZED AORTIC ARCH AND BRANCHING VESSELS: Mild atheromatous disease but no significant stenosis . Cardiomegaly. --SOFT TISSUES: Normal. Bilateral pleural effusion with adjacent atelectasis. --CERVICAL SPINE: Age appropriate degenerative changes. IMPRESSION: 1. Nonvisualization of the distal left posterior cerebral artery. Otherwise normal CTA of the head. 2. CTA of the neck. Shows severe calcification of the carotid arteries. Percent stenosis per NASCET criteria is 60% on the right side. 3. Bilateral pleural effusion with adjacent atelectasis versus pneumonia. Reviewed, dictated and finalized at location A. IMPRESSION: 1. Nonvisualization of the distal left posterior cerebral artery. Otherwise no rmal CTA of the head. 2. CTA of the neck. Shows severe calcification of the carotid arteries. Percen t stenosis per NASCET criteria is 60% on the right side. 3. Bilateral pleural effusion with adjacent atelectasis versus pneumonia.
--- NOTE | ~2024-06-24 | CT_ITS ---
CT brain wo con Ordering provider: Manav Duarte MD History: 84 years Male with . AMS . Comparison: None. Technique: CT of the head without contrast. Radiation reduction technique utilized.The dose-length pr oduct was 681 mGy-cm. FINDINGS: BRAIN PARENCHYMA AND CSF SPACES: Hypodensity in the left posterior temporal area which may indicate a cute/subacute infarct. MRI evaluation advised. Hyperdensities are seen in the area which may indicate hemorrhagic changes. Calcification is not excluded. Mild leukoaraiosis and diffuse cortical atrophy. Mild atheromatous disease. No midline shift, or mass effect.. The brain parenchyma and CSF spaces a re otherwise normal. VISUALIZED PARANASAL SINUSES: Bilateral maxillary sinus disease. Otherwise, Well aerated. MASTOIDS: Well aerated. BONES: The bones appear intact. SOFT TISSUES: Visualized nasopharynx is normal. Superficial soft tissues are normal. IMPRESSION: Hypodensity in the left posterior temporal/occipital area which is suggestive of acute/subacute infar ct with multiple hyperdensities which may be hemorrhagic areas. Calcification is less likely. MRI laura luation is advised. Physician: Manav Duarte MD Was notified with the result of the patient at time 6:45 PM on June 24, 2024. Reviewed, dictated and finalized at location A. IMPRESSION: Hypodensity in the left posterior temporal/occipital area which is suggestive o f acute/subacute infarct with multiple hyperdensities which may be hemorrhagic areas. Calcification is less likely. MRI evaluation is advised. Physician: Manav Duarte MD Was notified with the result of the patient at time 6:45 PM on June 24, 2024.
--- NOTE | ~2024-06-24 | XR_ITS ---
Portable chest x-ray Comparison: 07/02/2024 Clinical History: CHF Findings: Small bilateral pleural effusions are present with mild bibasilar pulmonary edema/atelecta sis. Cardiomediastinal silhouette is stable, status post CABG and aortic valve replacement, with pac emaker device. Bones and soft tissues are unremarkable. Impression: Small bilateral pleural effusions with mild bibasilar pulmonary edema/atelectasis. Stable cardiomegaly, status post CABG and aortic valve replacement, with pacemaker device. Reviewed, dictated and finalized at location . Impression: Small bilateral pleural effusions with mild bibasilar pulmonary edema/atelectas is. Stable cardiomegaly, status post CABG and aortic valve replacement, with pacema ker device.
--- NOTE | ~2024-06-24 | US_ITS ---
EXAM: RENAL ULTRASOUND HISTORY: CHRISTIAN on CKD COMPARISON: None FINDINGS: RIGHT KIDNEY: 10.8 x 4.5 x 5.4 cm. The parenchyma of the right kidney is thin and increased in echogenicity. No hydronephrosis or bulky renal calculi. LEFT KIDNEY: 10.8 x 5.1 x 5.7 cm No hydronephrosis or renal calculi. The parenchyma of the left kidney is thin and increased in echogenicity. A single rounded avascular anechoic focus is present within the lower pole of the left kidney measuri ng 11 mm in greatest dimension, consistent with a simple cyst for which no further follow-up is neede d. BLADDER: The bladder is only minimally distended. Despite prolonged interrogation, neither ureteral jet is visualized. IMPRESSION: No hydronephrosis or renal calculi. Findings suggesting medical renal disease. Reviewed, dictated and finalized at location A.
--- NOTE | ~2024-06-24 | US_ITS ---
EXAMINATION: US venous doppler [facility] DATE: 06/26/2024 11:33 INDICATION: Lower limb swelling. TECHNIQUE: Grayscale ultrasound images without and with compression and Doppler ultrasound images of the bilateral lower extremity veins were obtained. COMPARISON: None. FINDINGS: The visualized portions of right common femoral vein, profunda (deep) femoral vein, femoral vein, pop liteal vein, peroneal veins, posterior tibial veins, and greater saphenous vein outflow are patent. The visualized portions of left common femoral vein, profunda femoral vein, femoral vein, popliteal v ein, peroneal veins, posterior tibial veins, and greater saphenous vein outflow are patent. IMPRESSION: 1. No deep venous thrombosis. Reviewed, dictated and finalized at location A.
--- NOTE | 2024-06-24 16:47 | ECG_ITS ---
Test Date: 2024-06-24 17:07:59 Measurements Intervals [place] Rate: 59 P: 0 WI: 0 QRS: 218 QRSD: 178 T: 31 QT: 503 QTc: 502 Interpretive Statements ELECTRONIC VENTRICULAR PACEMAKER ABNORMAL RHYTHM ECG Compared to ECG 06/09/2024 08:18:42 No significant changes Electronically Signed On 06-25-2024 10:45:50 CDT by Omer Sanchez M.D.
--- NOTE | 2024-06-24 16:56 | ED_ITS ---
HPI - Altered Mental Status General Chief Complaint: Altered Mental Status <Manav Duarte MD - Last Filed: 06/25/24 19:45> Stated Complaint: altered mental status <Manav Duarte MD - Last Filed: 06/25/24 19:45> Time Seen by Provider: 06/24/24 16:34 <Manav Duarte MD - Last Filed: 06/25/24 19:45> History of Present Illness HPI narrative: 84-year-old male with a past medical history including coronary disease status post CABG, AICD/pacemaker, CHF, COPD on home oxygen 2-3 L. He resides at a halfway facility. Patient presents to the ER for evaluation of mental status changes. Patient was somnolent and minimally arousable to verbal or physical stimuli according to the staff members and EMS arrived to scene. Glucose obtained at 300, patient responded to deeper stimuli and woke up and is alert oriented x4 upon arrival to the emergency department. 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 No facial droop or asymmetry. No aphasia. No sensory deficits or visual deficits. He states that he feels at his baseline self right now and has no complaints. He denies any chest pain, shortness a breath, nausea, vomiting, headache, vision changes, abdominal pain, back pain. When asked why they brought him to the hospital patient replies ?they do not like me at the nursing facility. and then laughed. EMS provided additional collateral formation and also noted that while he was having his mental status changes he had irregular heart rhythms on the monitor but were difficult to ascertain as he has a baseline tremor which is not new for him. Reportedly had bradycardia episodes in the 20s to 40s which resolved during transit without intervention. <Manav Duarte MD - Last Filed: 06/25/24 19:45> Related Data Home Medications: Home Medications ?Medication ?Instructions ?Recorded ?Confirmed ?Last Taken ?Type albuterol sulfate 90 mcg/actuation 2 puff inhalation QID PRN 09/03/20 06/25/24 06/08/24 12:33 History aerosol inhaler Shortness Of Breath Or Wheezing 2 puff aspirin 81 mg chewable tablet 81 mg PO DAILY 09/03/20 06/25/24 Unknown History atorvastatin 40 mg tablet 40 mg PO HS 09/03/20 06/25/24 Unknown History cholecalciferol (vitamin D3) 25 25 mcg PO DAILY 09/03/20 06/25/24 Unknown History mcg (1,000 unit) tablet cyanocobalamin (vitamin B-12) 1,000 mcg PO DAILY 09/03/20 06/25/24 Unknown History 1,000 mcg tablet ferrous sulfate 325 mg (65 mg 325 mg PO BID 09/03/20 06/25/24 06/08/24 History iron) tablet isosorbide mononitrate 10 mg tablet 15 mg PO BID 09/03/20 06/25/24 Unknown History magnesium oxide 400 mg PO DAILY 09/03/20 06/25/24 Unknown History pantoprazole 40 mg tablet,delayed 40 mg PO QAM 09/03/20 06/25/24 06/08/24 History release (Protonix) tamsulosin 0.4 mg capsule (Flomax) 0.4 mg PO .pm 09/03/20 06/25/24 06/08/24 History tiotropium bromide 2.5 2 puff inhalation DAILY 09/03/20 06/25/24 Unknown History mcg/actuation mist for inhalation atropine sulfate (PF) 1 % eye 1 drp RIGHT EYE .Q12HR 06/10/24 06/25/24 06/08/24 History drops in a dropperette budesonide 160 mcg-glycopyr 9 2 inh inhalation .Q12HR 06/10/24 06/25/24 06/08/24 History mcg-formot 4.8 mcg/actuation HFA inhaler (Breztri Aerosphere) calcitriol 0.25 mcg capsule 0.25 mcg PO 3XW 06/10/24 06/25/24 06/08/24 History diclofenac sodium 1 % topical gel 2 g topical QID PRN pain 06/10/24 06/25/24 06/08/24 History finasteride 5 mg tablet 5 mg PO DAILY 06/10/24 06/25/24 06/08/24 History folic acid 1 mg tablet 1 mg PO DAILY 06/10/24 06/25/24 06/08/24 History guaifenesin 400 mg tablet 400 mg PO Q4H PRN cough 06/10/24 06/25/24 06/08/24 History (G-Fenesin) metoprolol succinate 25 mg 25 mg PO QAM 06/10/24 06/25/24 06/08/24 History tablet,extended release 24 hr 12.5 mg (Toprol XL) prednisolone acetate (PF) 1 % eye 1 drp RIGHT EYE Q12H 06/10/24 06/25/24 06/08/24 21:00 History drops,suspension pregabalin 25 mg capsule 25 mg PO HS 06/10/24 06/25/24 06/08/24 History sitagliptin 25 mg tablet 25 mg PO DAILY 06/10/24 06/25/24 06/08/24 History acetaminophen 325 mg tablet 650 mg PO Q4-6H PRN pain 06/25/24 06/25/24 Unknown History furosemide 40 mg tablet 40 mg PO DAILY 06/25/24 06/25/24 Unknown History <Manav Duarte MD - Last Filed: 06/25/24 19:45> Allergies/Adverse Reactions: Allergies Allergy/AdvReac Type Severity Reaction Status Date / Time latex Allergy Unknown Rash Verified 06/25/24 06:09 lisinopril Allergy Unknown Unknown Verified 06/25/24 06:09 <Manav Duarte MD - Last Filed: 06/25/24 19:45> Review of Systems 2 Review of Systems: As reviewed above in HPI <Manav Duarte MD - Last Filed: 06/25/24 19:45> [facility] Past Medical History Medical History: Medical History DM2 (diabetes mellitus, type 2) BPH (benign prostatic hyperplasia) Blindness of right eye Unknown cause Tobacco abuse 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 Chronic anemia Chronic renal failure, stage 3 (moderate) Chronic respiratory failure with hypoxia He wears oxygen at 2 L per nasal cannula Hypertension Sleep apnea The patient no longer uses and CPAP machine CAD (coronary artery disease) Pacemaker CHF (congestive heart failure) COPD (chronic obstructive pulmonary disease) <Manav Duarte MD - Last Filed: 06/25/24 19:45> Surgical History Surgical History: Surgical History H/O cystoscopy With bladder biopsy S/P CABG x 5 S/P heart valve repair Stented coronary artery X1 <Manav Duarte MD - Last Filed: 06/25/24 19:45> Family History Family History: Family History Daughter Scleroderma <Manav Duarte MD - Last Filed: 06/25/24 19:45> Social History Social History: Social History Social History: The patient lives with his who is the durable power managing attorney for healthcare. The patient desires to be a full code but does not want to be in a vegetative state on a ventilator. Patient is retired from working for the [employer]. He had a son and a daughter but his daughter with the scleroderma. Patient does not use any alcohol, marijuana, or illicit drugs. The patient stated that he quit smoking 40 years ago. The patient served in the [employer] in [employer] and suffers from exposure from agent orange. Smoking packs per day: 2 Smoking cigarettes per day: 40.0 Years smoked: 22 Smoking pack-years: 44.00 Smoking status: Former smoker Tobacco type: cigarettes Second hand tobacco smoke exposure: No Smoking end date: 04/01/69 Alcohol intake: never Substance use: never Do You Feel Safe in your Home?: Yes Lack of Transportation: No Lack of Food: Never True Current Housing: I Have Housing Concerned About Future Housing: No Difficulty Paying Gas/Electric Bills: No Difficulty Paying for Meds: No Currently Unemployed: No Education: High School Diploma/GED Difficulty w/ Childcare or Family Care: No Gender identity (if verbalized by the patient): Male Spiritual care concerns: No <Manav Duarte MD - Last Filed: 06/25/24 19:45> Exam 2 Narrative: GENERAL: Chronically ill-appearing but not any acute distress. Answering all questions appropriately. Awake alert x4. HEAD: [Normocephalic, atraumatic.] EYES: [PERRLA and EOMI.] ENT: Nares clear, no rhinorrhea or epistaxis. Mucous membranes moist. NECK: Supple. CHEST: [Clear to auscultation. No respiratory distress.] HEART: [Regular rate and rhythm]. No murmur heard. [Normal peripheral pulses.] ABDOMEN: [Soft, nondistended], [nontender], [No rigidity or guarding] generalized bruising over the bilateral abdominal flanks likely from previous heparin injections EXTREMITIES: Normal range of motion. 2+ extremity edema SKIN: Warm, dry, no rash. NEURO: [No focal deficits]. Alert and oriented [x3.] Normal strength and sensation throughout both arms and legs, cranial nerves are intact, no facial asymmetries. No aphasia, answering all questions appropriately. PSYCH: [Normal mood and affect.] <Manav Duarte MD - Last Filed: 06/25/24 19:45> Course Course Emergency Course: Patient signed out to me pending CTA. Following this, we did contact [facility] center again. Dr. Frias is no longer on-call as neurology. Images are pushed and, per return phone call by transfer coordiantor, flight communications operator neurologist Dr Burrows does believe patient needs admitted to an ICU bed. Either neurologist available as consulting but not as accepting. Updated at bedside. Patient resting comfortably on bipap, saturating appropriately. Somnolent but arouses to loud verbal or physcial stimulus. Neuro ICU had initially been contacted. marketing content coordinator reached out to them again and I was informed at approximately 21:45 that accepting physician (presumably an pocket secretary assembler, though did not talk with me directly) was Dr Olesya Mcgraw at [facility], pending bed assignment. Reassessed patient at bedside at 21:50 given concern for possible left upper extremity deficits given weaker squeeze on the left per nurse. I did go to bedside. Patient requiring loud verbal stimuli to arouse him enough to participate in physical exam. He does have muscle tone in this extremity. Able to squeeze hand firmly. No events overnight. Code status per verbal report from Dr Duarte was modified - Yes to CPR but NO intubation. Received patient back in sign-out this morning pending [facility] transfer and bed availability. Patient has been doing well all night and was able to be weaned off of BiPAP. He is now on his home oxygen dose. He is mentating appropriately, no changes neurological status. Remains NPO at this time until swallow study can be completed at bedside. His urine culture showed positive E coli which he was started on Rocephin for. Since patient has been boarding here in the emergency department over 24 hours I had discussions with the hospitalist team regarding admission here while we are waiting transfer. [facility] transfer system was called multiple times and they do not have any bed availability tonight or tomorrow most likely. I discussed the case with the hospitalist overnight who accepted the patient for admission here to an IMU monitored bed. MRI was ordered. Patient was accepted upstairs pending transfer to [facility]. <Manav Duarte MD - Last Filed: 06/25/24 19:45> Patient signed out to me pending CTA. Following this, we did contact [facility] again. Dr. Frias is no longer on-call as neurology. Images are pushed and, per return phone call by transfer coordiantor, flight communications operator neurologist Dr Burrows does believe patient needs admitted to an ICU bed. Either neurologist available as consulting but not as accepting. Updated at bedside. Patient resting comfortably on bipap, saturating appropriately. Somnolent but arouses to loud verbal or physcial stimulus. Neuro ICU had initially been contacted. marketing content coordinator reached out to them again and I was informed at approximately 21:45 that accepting physician (presumably an pocket secretary assembler, though did not talk with me directly) was Dr Olesya Mcgraw at [facility], pending bed assignment. Reassessed patient at bedside at 21:50 given concern for possible left upper extremity deficits given weaker squeeze on the left per nurse. I did go to bedside. Patient requiring loud verbal stimuli to arouse him enough to participate in physical exam. He does have muscle tone in this extremity. Able to squeeze hand firmly. No events overnight. Code status per verbal report from Dr Duarte was modified - Yes to CPR but NO intubation. <Mikki Henao MD - Last Filed: 06/25/24 20:21> Vital Signs Vital signs: Vital Signs Temperature 97.8 F 06/24/24 16:31 Pulse Rate 61 06/24/24 16:31 Respiratory Rate 18 06/24/24 16:31 Blood Pressure 105/86 06/24/24 16:31 Pulse Oximetry 100 06/24/24 16:31 Oxygen Delivery Nasal Cannula 06/24/24 16:31 Oxygen Flow Rate 3 06/24/24 16:31 Temperature 98.3 F 06/25/24 06:59 Pulse Rate 68 06/25/24 18:51 Respiratory Rate 23 H 06/25/24 18:51 Blood Pressure 102/54 L 06/25/24 18:51 Pulse Oximetry 100 06/25/24 18:51 Oxygen Delivery BiPAP 06/25/24 08:04 Oxygen Flow Rate 3 06/24/24 16:48 <Manav Duarte MD - Last Filed: 06/25/24 19:45> Vital Signs Temperature 97.8 F 06/24/24 16:31 Pulse Rate 61 06/24/24 16:31 Respiratory Rate 18 06/24/24 16:31 Blood Pressure 105/86 06/24/24 16:31 Pulse Oximetry 100 06/24/24 16:31 Oxygen Delivery Nasal Cannula 06/24/24 16:31 Oxygen Flow Rate 3 06/24/24 16:31 Temperature 98.3 F 06/25/24 06:59 Pulse Rate 68 06/25/24 18:51 Respiratory Rate 23 H 06/25/24 18:51 Blood Pressure 102/54 L 06/25/24 18:51 Pulse Oximetry 100 06/25/24 18:51 Oxygen Delivery BiPAP 06/25/24 08:04 Oxygen Flow Rate 3 06/24/24 16:48 <Mikki Henao MD - Last Filed: 06/25/24 20:21> MDM - Altered Mental Status MDM Narrative Medical decision making narrative: 84-year-old male with a past medical history including coronary disease status post CABG and PCI, have for F, CKD, hypertension, COPD on 2-3 L baseline oxygen trauma type 2 diabetes. Patient presents to the emergency department with concern for altered mental status at the nursing facility. Patient was minimally responsive to verbal and physical stimuli according to the EMS report and during transit he woke up back to his normal baseline mentation in answering all questions appropriately. He is noted to be potentially bradycardic in the 20s to 40s during the mental status episode with no pacer spikes seen on the monitor but he had significant tremor and difficult to identify. Patient presently is awake alert as baseline has no neurological deficits on examination NIH stroke scale 0. Noted to have a paced rhythm on the monitor without any ectopy or dysrhythmia. Normal vital signs no tachycardia, fever, hypoxia. Eyes baseline oxygen at 3 L. He is chronically ill appearing and chronically edematous from heart failure. Was recently admitted and discharged from this facility about 10 days prior for acute respiratory failure and hypercapnia. This could be a recurrence of the hypercapnic episode or new process. Given that he is awake alert oriented as baseline mentation suspicion for intracranial pathology is very unlikely. Toxicological process also unlikely given that he is a nursing facility. Workup was ordered with CBC, CMP, VBG, alcohol level, toxicological panel, urinalysis, thyroid stimulating hormone, troponin, EKG, chest x-ray, CT of the brain. One could glucose obtained. Patient placed on cardiac cath lab manager and pulse oximetry. Blood sugars 311. CT noncontrast shows acute ischemic stroke with microhemorrhage conversion. Not a TNK candidate. I was able to speak to the who was there at the facility and last known well as 3:30 p.m. patient is presently awake and mentating appropriately and placed on BiPAP for acute on chronic hypercapnia on his ABG. Spoke to Dr. Guerrero at [facility] regarding patient's presentation and need for transfer for stroke workup. Recommendations to obtain a CT angiogram to make sure he is not need a thrombectomy and then to call back to transfer center for transfer recommendations at that time. Patient is hemodynamically stable at this time, doing well on BiPAP, patient and family updated multiple times at bedside. Patient care signed out to oncoming ER physician at 8:[address] Henao pending CT angiography and transfer to facility with neurological capabilities for additional stroke workup and management. <Manav Duarte MD - Last Filed: 06/25/24 19:45> Medical Records Attestation: I reviewed the patient's medical records. <Manav Duarte MD - Last Filed: 06/25/24 19:45> Lab Data Attestation: I reviewed the patient's lab results. <Manav Duarte MD - Last Filed: 06/25/24 19:45> Result diagrams: 06/24/24 17:04 06/24/24 17:04 <Manav Duarte MD - Last Filed: 06/25/24 19:45> Labs: Lab Results 06/24/24 06/24/24 06/24/24 Range/Units 17:04 17:13 17:20 WBC 5.0 (4.5-10.0) K/mm3 RBC 3.12 L (4.6-6.20) M/mm3 Hgb 9.5 L (14.0-18.0) g/dL Hct 31.1 L (42.0-52.0) % MCV 99.7 (80-100) fl MCH 30.4 (26-34) pg MCHC 30.5 L (32-36) g/dl RDW 14.9 H (11.5-14.5) % Plt Count 131 L (150-375) k/mm3 MPV 10.0 (7.4-10.4) fl Immature Gran % (Auto) Not Reportable Neut % (Auto) Not Reportable Lymph % (Auto) Not Reportable Grimes % (Auto) Not Reportable Eos % (Auto) Not Reportable Baso % (Auto) Not Reportable Lymph # (Auto) Not Reportable Grimes # (Auto) Not Reportable Eos # (Auto) Not Reportable Baso # (Auto) Not Reportable Abs Immat Gran (auto) Not Reportable Absolute Neuts (auto) Not Reportable Absolute Nucleated RBC Not Reportable Total Counted 100 Neutrophils % (Manual) 87 H (46-73) % Band Neutrophils % 0 (0-6) % Lymphocytes % (Manual) 9.0 L (18-44) % Monocytes % (Manual) 3 (3-9) % Eosinophils % (Manual) 1 (0-4) % Nucleated RBC % Not Reportable Abs Neuts (Manual) 4.35 (1.3-6.7) K/mm3 Abs Lymphs (Manual) 0.45 L (1.1-4.5) K/mm3 Abs Monocytes (Manual) 0.15 (0.1-0.90) K/mm3 Absolute Eos (Manual) 0.05 (0.02-0.50) K/mm3 Platelet Estimate Decreased (Adequate) Hypochromasia 1+ Anisocytosis 1+ Schistocytes Rare PT 15.7 H (11.1-14.7) Seconds INR 1.2 APTT 28.9 (22.3-36.8) Seconds Sodium 129 L (137-145) mmol/L Potassium 5.0 (3.4-5.0) mmol/L Chloride 87 L (98-107) mmol/L Carbon Dioxide 36 H (22-30) mmol/L Anion Gap 6 (4-12) mmol/L BUN 104 H D (9-20) mg/dL Creatinine 2.49 H (0.7-1.3) mg/dL Estim Creat Clear Calc Not Reportable Estimated GFR 25 L (59 - ) Glucose 306 H (65-110) mg/dL POC Capillary Glucose 311 H (65-105) mg/dl Calcium 8.4 (8.4-10.2) mg/dL Total Bilirubin 0.8 (0.2-1.3) mg/dL AST 19 (17-59) U/L ALT 16 (6-50) U/L Alkaline Phosphatase 98 (38-126) U/L Troponin I 0.078 H* (0.000-0.034) ng/mL Total Protein 7.0 (6.3-8.2) g/dL Albumin 3.7 (3.5-5.1) g/dL TSH 3.770 (0.465-4.680) uIU/mL Urine Color Yellow (Yellow) Urine Appearance Cloudy H (Clear) Urine pH 5.0 (5.0-9.0) Ur Specific [place] 1.012 (1.001-1.035) Urine Protein Negative (Negative) mg/dL Urine Glucose (UA) 1+ H (Negative) mg/dL Urine Ketones Negative (Negative) mg/dL Ur Blood (Man) Negative (Negative) Urine Nitrate Negative (Negative) Urine Bilirubin Negative (Negative) Urine Urobilinogen 0.2 (<2.0) mg/dL Add Ur Microanalysis Reviewed Leukocyte Esterase Rfl Trace H (Negative) AIDAN/UL Urine RBC 0-2 (0-2) /hpf Urine WBC 6-10 H (0-3) /hpf Ur Squamous Epith Cells None seen (Few) /hpf Urine Bacteria None seen /hpf Urine Casts 11-20 Salicylates < 1.0 L (2-20) mg/dL Acetaminophen < 10 L (10-30) ug/mL Ethyl Alcohol < 10 (<10) mg/dL 06/24/24 06/24/24 06/25/24 Range/Units 22:02 23:58 13:37 WBC (4.5-10.0) K/mm3 RBC (4.6-6.20) M/mm3 Hgb (14.0-18.0) g/dL Hct (42.0-52.0) % MCV (80-100) fl MCH (26-34) pg MCHC (32-36) g/dl RDW (11.5-14.5) % Plt Count (150-375) k/mm3 MPV (7.4-10.4) fl Immature Gran % (Auto) Neut % (Auto) Lymph % (Auto) Grimes % (Auto) Eos % (Auto) Baso % (Auto) Lymph # (Auto) [place] # (Auto) Eos # (Auto) Baso # (Auto) Abs Immat Gran (auto) Absolute Neuts (auto) Absolute Nucleated RBC Total Counted Neutrophils % (Manual) (46-73) % Band Neutrophils % (0-6) % Lymphocytes % (Manual) (18-44) % Monocytes % (Manual) (3-9) % Eosinophils % (Manual) (0-4) % Nucleated RBC % Abs Neuts (Manual) (1.3-6.7) K/mm3 Abs Lymphs (Manual) (1.1-4.5) K/mm3 Abs Monocytes (Manual) (0.1-0.90) K/mm3 Absolute Eos (Manual) (0.02-0.50) K/mm3 Platelet Estimate (Adequate) Hypochromasia Anisocytosis Schistocytes PT (11.1-14.7) Seconds INR APTT (22.3-36.8) Seconds Sodium (137-145) mmol/L Potassium (3.4-5.0) mmol/L Chloride (98-107) mmol/L Carbon Dioxide (22-30) mmol/L Anion Gap (4-12) mmol/L BUN (9-20) mg/dL Creatinine (0.7-1.3) mg/dL Estim Creat Clear Calc Estimated GFR (59 - ) Glucose (65-110) mg/dL POC Capillary Glucose 230 H 215 H (65-105) mg/dl Calcium (8.4-10.2) mg/dL Total Bilirubin (0.2-1.3) mg/dL AST (17-59) U/L ALT (6-50) U/L Alkaline Phosphatase (38-126) U/L Troponin I 0.078 H* (0.000-0.034) ng/mL Total Protein (6.3-8.2) g/dL Albumin (3.5-5.1) g/dL TSH (0.465-4.680) uIU/mL Urine Color (Yellow) Urine Appearance (Clear) Urine pH (5.0-9.0) Ur Specific [place] (1.001-1.035) Urine Protein (Negative) mg/dL Urine Glucose (UA) (Negative) mg/dL Urine Ketones (Negative) mg/dL Ur Blood (Man) (Negative) Urine Nitrate (Negative) Urine Bilirubin (Negative) Urine Urobilinogen (<2.0) mg/dL Add Ur Microanalysis Leukocyte Esterase Rfl (Negative) AIDAN/UL Urine RBC (0-2) /hpf Urine WBC (0-3) /hpf Ur Squamous Epith Cells (Few) /hpf Urine Bacteria /hpf Urine Casts Salicylates (2-20) mg/dL Acetaminophen (10-30) ug/mL Ethyl Alcohol (<10) mg/dL <Manav Duarte MD - Last Filed: 06/25/24 19:45> Lab Results 06/24/24 06/24/24 06/24/24 Range/Units 17:04 17:13 17:20 WBC 5.0 (4.5-10.0) K/mm3 RBC 3.12 L (4.6-6.20) M/mm3 Hgb 9.5 L (14.0-18.0) g/dL Hct 31.1 L (42.0-52.0) % MCV 99.7 (80-100) fl MCH 30.4 (26-34) pg MCHC 30.5 L (32-36) g/dl RDW 14.9 H (11.5-14.5) % Plt Count 131 L (150-375) k/mm3 MPV 10.0 (7.4-10.4) fl Immature Gran % (Auto) Not Reportable Neut % (Auto) Not Reportable Lymph % (Auto) Not Reportable [place] % (Auto) Not Reportable Eos % (Auto) Not Reportable Baso % (Auto) Not Reportable Lymph # (Auto) Not Reportable [place] # (Auto) Not Reportable Eos # (Auto) Not Reportable Baso # (Auto) Not Reportable Abs Immat Gran (auto) Not Reportable Absolute Neuts (auto) Not Reportable Absolute Nucleated RBC Not Reportable Total Counted 100 Neutrophils % (Manual) 87 H (46-73) % Band Neutrophils % 0 (0-6) % Lymphocytes % (Manual) 9.0 L (18-44) % Monocytes % (Manual) 3 (3-9) % Eosinophils % (Manual) 1 (0-4) % Nucleated RBC % Not Reportable Abs Neuts (Manual) 4.35 (1.3-6.7) K/mm3 Abs Lymphs (Manual) 0.45 L (1.1-4.5) K/mm3 Abs Monocytes (Manual) 0.15 (0.1-0.90) K/mm3 Absolute Eos (Manual) 0.05 (0.02-0.50) K/mm3 Platelet Estimate Decreased (Adequate) Hypochromasia 1+ Anisocytosis 1+ Schistocytes Rare PT 15.7 H (11.1-14.7) Seconds INR 1.2 APTT 28.9 (22.3-36.8) Seconds Sodium 129 L (137-145) mmol/L Potassium 5.0 (3.4-5.0) mmol/L Chloride 87 L (98-107) mmol/L Carbon Dioxide 36 H (22-30) mmol/L Anion Gap 6 (4-12) mmol/L BUN 104 H D (9-20) mg/dL Creatinine 2.49 H (0.7-1.3) mg/dL Estim Creat Clear Calc Not Reportable Estimated GFR 25 L (59 - ) Glucose 306 H (65-110) mg/dL POC Capillary Glucose 311 H (65-105) mg/dl Calcium 8.4 (8.4-10.2) mg/dL Total Bilirubin 0.8 (0.2-1.3) mg/dL AST 19 (17-59) U/L ALT 16 (6-50) U/L Alkaline Phosphatase 98 (38-126) U/L Troponin I 0.078 H* (0.000-0.034) ng/mL Total Protein 7.0 (6.3-8.2) g/dL Albumin 3.7 (3.5-5.1) g/dL TSH 3.770 (0.465-4.680) uIU/mL Urine Color Yellow (Yellow) Urine Appearance Cloudy H (Clear) Urine pH 5.0 (5.0-9.0) Ur Specific [place] 1.012 (1.001-1.035) Urine Protein Negative (Negative) mg/dL Urine Glucose (UA) 1+ H (Negative) mg/dL Urine Ketones Negative (Negative) mg/dL Ur Blood (Man) Negative (Negative) Urine Nitrate Negative (Negative) Urine Bilirubin Negative (Negative) Urine Urobilinogen 0.2 (<2.0) mg/dL Add Ur Microanalysis Reviewed Leukocyte Esterase Rfl Trace H (Negative) AIDAN/UL Urine RBC 0-2 (0-2) /hpf Urine WBC 6-10 H (0-3) /hpf Ur Squamous Epith Cells None seen (Few) /hpf Urine Bacteria None seen /hpf Urine Casts 11-20 Salicylates < 1.0 L (2-20) mg/dL Acetaminophen < 10 L (10-30) ug/mL Ethyl Alcohol < 10 (<10) mg/dL 06/24/24 06/24/24 06/25/24 Range/Units 22:02 23:58 13:37 WBC (4.5-10.0) K/mm3 RBC (4.6-6.20) M/mm3 Hgb (14.0-18.0) g/dL Hct (42.0-52.0) % MCV (80-100) fl MCH (26-34) pg MCHC (32-36) g/dl RDW (11.5-14.5) % Plt Count (150-375) k/mm3 MPV (7.4-10.4) fl Immature Gran % (Auto) Neut % (Auto) Lymph % (Auto) [place] % (Auto) Eos % (Auto) Baso % (Auto) Lymph # (Auto) [place] # (Auto) Eos # (Auto) Baso # (Auto) Abs Immat Gran (auto) Absolute Neuts (auto) Absolute Nucleated RBC Total Counted Neutrophils % (Manual) (46-73) % Band Neutrophils % (0-6) % Lymphocytes % (Manual) (18-44) % Monocytes % (Manual) (3-9) % Eosinophils % (Manual) (0-4) % Nucleated RBC % Abs Neuts (Manual) (1.3-6.7) K/mm3 Abs Lymphs (Manual) (1.1-4.5) K/mm3 Abs Monocytes (Manual) (0.1-0.90) K/mm3 Absolute Eos (Manual) (0.02-0.50) K/mm3 Platelet Estimate (Adequate) Hypochromasia Anisocytosis Schistocytes PT (11.1-14.7) Seconds INR APTT (22.3-36.8) Seconds Sodium (137-145) mmol/L Potassium (3.4-5.0) mmol/L Chloride (98-107) mmol/L Carbon Dioxide (22-30) mmol/L Anion Gap (4-12) mmol/L BUN (9-20) mg/dL Creatinine (0.7-1.3) mg/dL Estim Creat Clear Calc Estimated GFR (59 - ) Glucose (65-110) mg/dL POC Capillary Glucose 230 H 215 H (65-105) mg/dl Calcium (8.4-10.2) mg/dL Total Bilirubin (0.2-1.3) mg/dL AST (17-59) U/L ALT (6-50) U/L Alkaline Phosphatase (38-126) U/L Troponin I 0.078 H* (0.000-0.034) ng/mL Total Protein (6.3-8.2) g/dL Albumin (3.5-5.1) g/dL TSH (0.465-4.680) uIU/mL Urine Color (Yellow) Urine Appearance (Clear) Urine pH (5.0-9.0) Ur Specific [place] (1.001-1.035) Urine Protein (Negative) mg/dL Urine Glucose (UA) (Negative) mg/dL Urine Ketones (Negative) mg/dL Ur Blood (Man) (Negative) Urine Nitrate (Negative) Urine Bilirubin (Negative) Urine Urobilinogen (<2.0) mg/dL Add Ur Microanalysis Leukocyte Esterase Rfl (Negative) AIDAN/UL Urine RBC (0-2) /hpf Urine WBC (0-3) /hpf Ur Squamous Epith Cells (Few) /hpf Urine Bacteria /hpf Urine Casts Salicylates (2-20) mg/dL Acetaminophen (10-30) ug/mL Ethyl Alcohol (<10) mg/dL <Mikki Henao MD - Last Filed: 03/27/25 20:21> ABG Data ABG results: 06/24/24 17:04 VBG pH 7.276 L VBG pCO2 71.4 H* VBG pO2 29.2 L VBG HCO3 32.5 H O2 Delivery Device Room air O2 Liters/Min Not Reportable FiO2 21 <Manav Duarte MD - Last Filed: 06/25/24 19:45> 06/24/24 17:04 VBG pH 7.276 L VBG pCO2 71.4 H* VBG pO2 29.2 L VBG HCO3 32.5 H O2 Delivery Device Room air O2 Liters/Min Not Reportable FiO2 21 <Mikki Henao MD - Last Filed: 06/25/24 20:21> Attestation: I personally reviewed and interpreted this ABG as follows: <Manav Duarte MD - Last Filed: 06/25/24 19:45> Interpretation: Acute on chronic hypercapnic retention <Manav Duarte MD - Last Filed: 06/25/24 19:45> Imaging Data Attestation: I personally reviewed and interpreted this imaging study as follows: < Manav Duarte MD - Last Filed: 06/25/24 19:45> My impression: Impressions Head CT 06/24/24 18:31 IMPRESSION: Hypodensity in the left posterior temporal/occipital area which is suggestive of acute/subacute infarct with multiple hyperdensities which may be hemorrhagic areas. Calcification is less likely. MRI evaluation is advised. Physician: Manav Duarte MD Was notified with the result of the patient at time 6:45 PM on June 24, 2024. Chest X-Ray 06/24/24 18:54 IMPRESSION: Bilateral basal atelectasis versus pneumonia with bilateral pleural effusion. Cardiomegaly with cardiac decompensation and pulmonary edema. Clinical correlation advised. <Manav Duarte MD - Last Filed: 06/25/24 19:45> Critical Care Time Critical Care Time Critical Care Time: Yes <Manav Duarte MD - Last Filed: 06/25/24 19:45> Total Critical Care Time: 60 <Manav Duarte MD - Last Filed: 06/25/24 19:45> Discharge Plan Discharge Clinical Impression: Acute ischemic stroke, Hemorrhagic stroke, Acute and chronic respiratory failure with hypercapnia <Manav Duarte MD - Last Filed: 06/25/24 19:45> Patient Disposition: Acute Care Hospital <Manav Duarte MD - Last Filed: 06/25/24 19:45> Condition: Serious <Manav Duarte MD - Last Filed: 06/25/24 19:45> Patient Language: Hungarian <Manav Duarte MD - Last Filed: 06/25/24 19:45> Prescriptions: No Action atorvastatin 40 mg Tablet 40 mg PO HS cyanocobalamin (vitamin B-12) 1,000 mcg Tablet 1,000 mcg PO DAILY aspirin 81 mg Tablet,Chewable 81 mg PO DAILY albuterol sulfate 90 mcg/actuation Hfa Aerosol Inhaler 2 puff INHALATION QID PRN (Reason: Shortness Of Breath Or Wheezing) Patient Comments: pt states he was taking prior to being hospitalized in the [place], although hasn't had since his discharge from that hospital on Saturday. cholecalciferol (vitamin D3) 25 mcg (1,000 unit) Tablet 25 mcg PO DAILY tamsulosin [Flomax] 0.4 mg Capsule 0.4 mg PO .pm pantoprazole [Protonix] 40 mg Tablet,Delayed Release (Dr/Ec) 40 mg PO QAM ferrous sulfate 325 mg (65 mg iron) Tablet 325 mg PO BID isosorbide mononitrate 10 mg Tablet 15 mg PO BID tiotropium bromide 2.5 mcg/actuation Mist 2 puff INHALATION DAILY magnesium oxide 400 mg magnesium Tablet 400 mg PO DAILY nitroglycerin [Nitrostat] 0.4 mg Tablet, Sublingual 0.4 mg sublingual Q5MIN PRN (Reason: Chest Pain) Qty: 25 0RF bumetanide 1 mg Tablet 1 mg PO BID Qty: 60 0RF metolazone 2.5 mg tablet 2.5 mg PO WEEKLY Qty: 30 0RF Rx Instructions: twice a week atropine sulfate (PF) 1 % dropperette 1 drp RIGHT EYE .Q12HR Breztri Aerosphere 160-9-4.8 mcg/actuation HFA aerosol inhaler 2 inh inhalation .Q12HR calcitriol 0.25 mcg capsule 0.25 mcg PO 3XW Rx Instructions: TAKES -- diclofenac sodium 1 % gel 2 g topical QID PRN (Reason: pain) Rx Instructions: apply to Right shoulder /Right hand as needed for pain; finasteride 5 mg tablet 5 mg PO DAILY folic acid 1 mg tablet 1 mg PO DAILY guaifenesin [G-Fenesin] 400 mg tablet 400 mg PO Q4H PRN (Reason: cough) prednisolone acetate (PF) 1 % drops,suspension 1 drp RIGHT EYE Q12H sitagliptin 25 mg tablet 25 mg PO DAILY metoprolol succinate [Toprol XL] 25 mg Tablet Extended Release 24 Hr 25 mg PO QAM Rx Instructions: take 1/2 tablet daily pregabalin 25 mg capsule 25 mg PO HS acetaminophen 325 mg tablet 650 mg PO Q4-6H PRN (Reason: pain) furosemide 40 mg tablet 40 mg PO DAILY <Manav Duarte MD - Last Filed: 06/25/24 19:45> Follow-up/Referrals: [facility] [Primary Care Provider] - <Manav Duarte MD - Last Filed: 06/25/24 19:45>
[2024-06-24 17:10] LABS: Hematocrit 31.1 % (42.0-52.0); Hemoglobin 9.5 g/dL (14.0-18.0); Mean Corpuscular HGB Conc 30.5 g/dl (32-36); Mean Corpuscular Hemoglobin 30.4 pg (26-34); Mean Corpuscular Volume 99.7 fl (80-100); Platelet Count Result 131 k/mm3 (150-375); Red Blood Count 3.12 M/mm3 (4.6-6.20); Red Cell Distribution Width 14.9 % (11.5-14.5)
[2024-06-24 17:21] LABS: Acetaminophen < 10 ug/mL (10-30); Alanine Aminotransferase 16 U/L (6-50); Albumin Level 3.7 g/dL (3.5-5.1); Alkaline Phosphatase 98 U/L (38-126); Anion Gap 6 mmol/L (4-12); Aspartate Amino Transferase 19 U/L (17-59); Bilirubin,Total 0.8 mg/dL (0.2-1.3); Blood Urea Nitrogen 104 mg/dL (9-20); Calcium 8.4 mg/dL (8.4-10.2); Carbon Dioxide 36 mmol/L (22-30); Chloride 87 mmol/L (98-107); Estimated Glomerular Filt Rate 25; Ethanol < 10 mg/dL (<10); Glucose 306 mg/dL (65-110); Salicylate < 1.0 mg/dL (2-20); Sodium 129 mmol/L (137-145)
[2024-06-24 17:23] LABS: Fractional Inspired Oxygen 21 %; HCO3 VBG 32.5 mEq/l (24.0-30.0); INR 1.2; PO2 VBG 29.2 mmHg (35.0-45.0); Prothrombin Time 15.7 Seconds (11.1-14.7); pH VBG 7.276 (7.300-7.400)
[2024-06-24 17:24] LABS: Glucose Point of Care 311 mg/dl (65-105)
[2024-06-24 17:24] LABS: Partial Thromboplastin Time 28.9 Seconds (22.3-36.8)
[2024-06-24 17:25] LABS: Device ROOM AIR; PCO2 VBG 71.4 mmHg (42.0-48.0)
[2024-06-24 17:36] LABS: Eosinophils Absolute Manual 0.05 K/mm3 (0.02-0.50); Eosinophils Percent Manual 1 % (0-4); Lymphocytes Absolute Manual 0.45 K/mm3 (1.1-4.5); Monocytes Absolute Manual 0.15 K/mm3 (0.1-0.90); Monocytes Percent Manual 3 % (3-9); Neutrophils Percent Manual 87 % (46-73); Platelet Estimate Decreased (Adequate); Total Cells Counted 100
[2024-06-24 17:38] LABS: Hypochromasia 1+; Schistocytes Rare
[2024-06-24 17:39] LABS: Anisocytosis 1+
[2024-06-24 17:40] LABS: Band Neutrophils Percent 0 % (0-6); Neutrophils Absolute Manual 4.35 K/mm3 (1.3-6.7)
[2024-06-24 17:41] LABS: Troponin I 0.078 ng/mL (0.000-0.034)
--- OUTSIDE RECORDS SUMMARY | 2024-06-24 17:50 | XMS_ITS | Clinical Summary ---
Author Organization [facility] Address [address] [place] [address] Care Team Providers Care Welding Machine Operator Helper Arc Name Role Phone Rafat Nunez MD Primary Care Provider [phone] Source Comments [facility],non-[facility] Affiliates and Associated Physician Practices is amultiple site organization consisting of ambulatory clinics and hospital sitesin [place], [place], [place] and [place]. This disclosure is being madepursuant to the Care Everywhere program and may not contain all information available regarding this patient. Last updated 17.[facility] Allergies Active Allergy Reactions Criticality Noted Date [...] Immunizations Name Administration Dates Next Due Sharmin Proficient primary monoval ent 12+ yr 0.3mL Purple [...] complete this topic MENINGOCOCCAL (Group B) VACCINE SHARED DECISION-MAKING Aged Out No longer eligible based on patient's age to complete this topic MENINGOCOCCAL GROUPS A/C/Y/W VACCINE Aged Out No longer eligible b ased on patient's age to complete this topic Care Teams Welding Machine Operator Helper Arc Relationship Specialty Start Date End Date Rafat Nunez MD [address] [id number] PCP - General 08/11/20
--- OUTSIDE RECORDS SUMMARY | 2024-06-24 17:50 | XMS_ITS | Clinical Summary ---
Author Organization Unknown Care Team Providers Care Crop Or Grain Farmer Name Role Phone FRANCISCO JAVIER OQUENDO Unavailable Unavaila boyd BELL PT, NADER Unavailable Unavailable ERNST COATING MIXER SUPERVISOR, ANMOL Unavailable Unavailable Payers Payer Name Policy Type Policy Number Effective Date Expira tion Date [facility].OPTUM.[id number].[id number].AUTH Problems Condition Name Condition Details Condition Category Status Onset Date Resolution Date Last Treatment Date Treating Clinician Comments HYP HRT AND CHR KDNY DIS W HRT FAIL AND STG 1-4/UNSP CHR KDNY Active - 00:00: 00 ACUTE DIASTOLIC (CONGESTIVE) HEART FAILURE Active 05-26 00:00: 00 CHRONIC KIDNEY DISEASE, STAGE 4 (SEVERE) Active - 00:00: 00 CHRONIC OBSTRUCTIVE PULMONARY DISEASE W (ACUTE) EXACERBATION Active 05-26 00:00: 00 ACUTE RESPIRATORY FAILURE WITH HYPOXIA Active 05-26 00:00: 00 ATHSCL HEART DISEASE OF [place] CORONARY ARTERY W/O ANG PCTRS Active - 00:00: 00 TYPE 2 DIABETES MELLITUS WITHOUT COMPLICATION S Active - 00:00: 00 MALIGNANT NEOPLASM OF BLADDER, UNSPECIFIED Active - 00:00: 00 PAROXYSMAL ATRIAL FIBRILLATION Active - 00:00: 00 PULMONARY HYPERTENSION , UNSPECIFIED Active - 00:00: 00 NONRHEUMATIC AORTIC (VALVE) STENOSIS Active - 00:00: 00 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 Active 2- 00:00: 00 OBSTRUCTIVE SLEEP APNEA (ADULT) (PEDIATRIC) Active 2- 00:00: 00 UMBILICAL HERNIA WITHOUT OBSTRUCTION OR GANGRENE Active - 00:00: 00 PRESENCE OF AORTOCORONAR Y BYPASS GRAFT Active - 00:00: 00 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 Ordering Clinician Indication Dosage Frequency Signature (SIG) Comments Components albuterol sulfate HFA 90 mcg/actuati on aerosol inhaler 06-02 00:00: 00 Yes [id number] WHEEZING, SHORTNESS OF BREATH 2 puff 4 TIMES DAILY 2 puff 4 TIMES DAILY (route: inhalation ) Med Classific ation: Respirato ry Therapy Agents atropine sulfate (PF) 1 % eye drops in a dropperette 06-02 00:00: 00 Yes [id number] RIGHT EYE 1 dropper ette, single- use drop dispens er 2 TIMES DAILY 1 dropperett e, single-use drop dispenser 2 TIMES DAILY (route: ophthalmic (eye)) Med Classific ation: Ophthalmi c Agents Breztri Aerosphere 160 mcg-9mcg-4. 8mcg/actuat ion HFA aerosol inhaler 06-02 00:00: 00 Yes [id number] COPD 2 puff 2 TIMES DAILY 2 puff 2 TIMES DAILY (route: inhalation ) Med Classific ation: Respirato ry Therapy Agents calcitriol 0.25 mcg capsule 06-02 00:00: 00 Yes [id number] LOW PARATHYROID HORMONE 1 capsule EVERY OTHER DAY 1 capsule EVERY OTHER DAY (route: oral) Med Classific ation: Electroly te Balance-N utritiona l Products diclofenac 1 % topical gel 06-02 00:00: 00 Yes [id number] NEEDED FOR KNEE PAIN 1 inch 4 TIMES DAILY 1 inch 4 TIMES DAILY (route: topical) Med Classific ation: Dermatolo gical ferrous sulfate 325 mg (65 mg iron) tablet 06-02 00:00: 00 Yes [id number] SUPPLEMENT 1 tablet DAILY 1 tablet DAILY (route: oral) Med Classific ation: Electroly te Balance-N utritiona l Products finasteride 5 mg tablet 06-02 00:00: 00 Yes [id number] PROSTATE 1 tablet DAILY 1 tablet DAILY (route: oral) Med Classific ation: Genitouri nary Therapy folic acid 1 mg tablet 06-02 00:00: 00 Yes [id number] SUPPLEMENT 1 tablet DAILY 1 tablet DAILY (route: oral) Med Classific ation: Electroly te Balance-N utritiona l Products guaifenesin 400 mg tablet 06-02 00:00: 00 Yes [id number] NEEDED FOR COUGH AND CONGESTION 1 tablet EVERY 4 HOURS 1 tablet EVERY 4 HOURS (route: oral) Med Classific ation: Respirato ry Therapy Agents metoprolol succinate ER 25 mg tablet,exte nded release 24 hr 06-02 00:00: 00 Yes [id number] HIGH BLOOD PRESSURE .5 tablet DAILY .5 tablet DAILY (route: oral) Med Classific ation: Cardiovas cular Therapy Agents pantoprazol e 40 mg tablet,uziel yed release 06-02 00:00: 00 Yes [id number] GERD 1 tablet DAILY 1 tablet DAILY (route: oral) Med Classific ation: Gastroint estinal Therapy Agents prednisolon e acetate 1 % eye drops,suspe nsion 06-02 00:00: 00 Yes [id number] EYE INFLAMMATIO N 1 drops 2 TIMES DAILY 1 drops 2 TIMES DAILY (route: ophthalmic (eye)) Med Classific ation: Ophthalmi c Agents pregabalin 25 mg capsule 06-02 00:00: 00 Yes [id number] NERVE PAIN 1 capsule DAILY 1 capsule DAILY (route: oral) Med Classific ation: Central Nervous System Agents sitagliptin 25 mg tablet 06-02 00:00: 00 Yes [id number] DIABETES 1 tablet DAILY 1 tablet DAILY (route: oral) Med Classific ation: Endocrine tamsulosin 0.4 mg capsule 06-02 00:00: 00 Yes [id number] PROSTATE HEALTH 1 capsule DAILY 1 capsule DAILY (route: oral) Med Classific ation: Genitouri nary Therapy torsemide 20 mg tablet 06-02 00:00: 00 Yes [id number] FLUID OVERLOAD 1 tablet 2 TIMES DAILY 1 tablet 2 TIMES DAILY (route: oral) Med Classific ation: Cardiovas cular Therapy Agents Vital Signs Vital Name Observation Time Observation Value Commen ts Temperature 2024-06-02 13:08:00.000 97.1 [degF] BMI (%) 2024-06-02 12:54:31.000 27 kg/m2 Height 2024-06-02 12:54:25.000 68 [in_us] Pulse 2024-06-02 13:08:00.000 66 /min O2 Saturation (%) 2024-06-02 13:08:00.000 99 % Respirations 2024-06-02 13:08:00.000 18 /min Weight (lbs) 2024-06-02 12:54:31.000 180 [lb_av] Systolic Blood Pressure 2024-06-02 13:08:00.000 128 mm [Hg] Diastolic Blood Pressure 2024-06-02 13:08:00.000 60 mm [Hg] Plan of Treatment Planned Activity Planned Date Details Comments Future Scheduled Test AGENCY MAY PERFORM A RESUMPTION OF CARE VISIT FOLLOWING ANY HOSPITAL ADMISSION. PT TO EVALUATE, OBSERVE / ASSESS, AND MONITOR, COATING MIXER SUPERVISOR TO OBSERVE AND MONITOR, PROVIDE SKILLED THERAPEUTIC INTERVENTION, ACTIVITY, EDUCATION, AND TRAINING TO ADDRESS; PATIENT HAS PAST MEDICAL HISTORY OF CAD S/P CABG, HEART FAILURE, CKD STAGE 4, HTN, COPD, AFUA, CVA, UMBILICAL HERNIA, MILD PULMONARY HTN, DMII, AFIB, AORTIC STENOSIS. [facility] WILL MONITOR PATIENT FOR SIGNS AND SYMPTOMS OF EXACERBATION OF THESE DIAGNOSES AND WILL NOTIFY PROVIDER OF ANY CONCERNS OR CHANGES THAT ARISE. [code = AGENCY MAY PERFORM A RESUMPTION OF CARE VISIT FOLLOWING ANY HOSPITAL ADMISSION. PT TO EVALUATE, OBSERVE / ASSESS, AND MONITOR, COATING MIXER SUPERVISOR TO OBSERVE AND MONITOR, PROVIDE SKILLED THERAPEUTIC INTERVENTION, ACTIVITY, EDUCATION, AND TRAINING TO ADDRESS; PATIENT HAS PAST MEDICAL HISTORY OF CAD S/P CABG, HEART FAILURE, CKD STAGE 4, HTN, COPD, AFUA, CVA, UMBILICAL HERNIA, MILD PULMONARY HTN, DMII, AFIB, AORTIC STENOSIS. [facility] WILL MONITOR PATIENT FOR SIGNS AND SYMPTOMS OF EXACERBATION OF THESE DIAGNOSES AND WILL NOTIFY PROVIDER OF ANY CONCERNS OR CHANGES THAT ARISE. ] Future Scheduled Test PT / COATING MIXER SUPERVISOR T O INSTRUCT PATIENT/CAREGIVER ON RISK FOR HOSPITALIZATION/EMERGENCY ROOM VISITS, TEACH SIGNS AND SYMPTOMS THAT PUT PATIENT AT RISK, WHEN TO NOTIFY NURSE/PHYSICIAN OF COMPLICATIONS/DECLINE, AND WHEN TO CALL 911. [code = PT / COATING MIXER SUPERVISOR TO INSTRUCT PATIENT/CAREGIVER ON RISK FOR HOSPITALIZATION/EMERGENCY ROOM VISITS, TEACH SIGNS AND SYMPTOMS THAT PUT PATIENT AT RISK, WHEN TO NOTIFY NURSE/PHYSICIAN OF COMPLICATIONS/DECLINE, AND WHEN TO CALL 911.] Future Scheduled Test BED MOBILI TY (PT/COATING MIXER SUPERVISOR) [code = BED MOBILITY (PT/COATING MIXER SUPERVISOR)] Future Scheduled Test PT/COATING MIXER SUPERVISOR TO PROVIDE GAIT TRAINING FOR IMPROVED MOBILITY AND /OR TO NORMALIZE GAIT PATTERN [code = PT/COATING MIXER SUPERVISOR TO PROVIDE GAIT TRAINING FOR IMPROVED MOBILITY AND /OR TO NORMALIZE GAIT PATTERN] Future Scheduled Test PT/COATING MIXER SUPERVISOR TO IDENTIFY FALL RISK FACTORS; EDUCATE THE PATIENT/CAREGIVER ON WAYS TO REDUCE FALL RISK FACTORS AND ESTABLISH HOME EXERCISE PROGRAM TO MINIMIZE FALL RISK. MAY TEACH THE PATIENT FLOOR RECOVERY WHEN CLINICALLY APPROPRIATE [code = PT/COATING MIXER SUPERVISOR TO IDENTIFY FALL RISK FACTORS; EDUCATE THE PATIENT/CAREGIVER ON WAYS TO REDUCE FALL RISK FACTORS AND ESTABLISH HOME EXERCISE PROGRAM TO MINIMIZE FALL RISK. MAY TEACH THE PATIENT FLOOR RECOVERY WHEN CLINICALLY APPROPRIATE] Future Scheduled Test SIT TO/FRO M STAND TRANSFERS (PT/COATING MIXER SUPERVISOR) [code = SIT TO/FROM STAND TRANSFERS (PT/COATING MIXER SUPERVISOR)] Future Scheduled Test PT TO ASSE SS / COATING MIXER SUPERVISOR TO MONITOR CARDIO/RESPIRATORY SYSTEM; AND NOTIFY THE PHYSICIAN AND/OR THE RN CLINICAL MANUFACTURING ENGINEER AUTOMOTIVE FOR PHYSICIAN NOTIFICATION FOR EARLY SIGNS AND SYMPTOMS OF EXACERBATION OR DETERIORATION. [code = PT TO ASSESS / COATING MIXER SUPERVISOR TO MONITOR CARDIO/RESPIRATORY SYSTEM; AND NOTIFY THE PHYSICIAN AND/OR THE RN CLINICAL MANUFACTURING ENGINEER AUTOMOTIVE FOR PHYSICIAN NOTIFICATION FOR EARLY SIGNS AND SYMPTOMS OF EXACERBATION OR DETERIORATION.] Future Scheduled Test PT / COATING MIXER SUPERVISOR T O MONITOR AND EDUCATE ON OXYGEN SATURATION DURING ADLS/IADLS, NOTIFY PHYSICIAN AND/OR THE RN CLINICAL MANUFACTURING ENGINEER AUTOMOTIVE FOR PHYSICIAN NOTIFICATION AND IF O2 SATS BELOW PHYSICIAN ORDERED PARAMETERS AFTER 10 MIN OF REST [code = PT / COATING MIXER SUPERVISOR TO MONITOR AND EDUCATE ON OXYGEN SATURATION DURING ADLS/IADLS, NOTIFY PHYSICIAN AND/OR THE RN CLINICAL MANUFACTURING ENGINEER AUTOMOTIVE FOR PHYSICIAN NOTIFICATION AND IF O2 SATS BELOW PHYSICIAN ORDERED PARAMETERS AFTER 10 MIN OF REST] Future Scheduled Test PT / COATING MIXER SUPERVISOR T O EDUCATE PATIENT / CAREGIVER ON OXYGEN MANAGEMENT; OXYGEN FLOW RATE L/MIN CONTINUOUS [code = PT / COATING MIXER SUPERVISOR TO EDUCATE PATIENT / CAREGIVER ON OXYGEN MANAGEMENT; OXYGEN FLOW RATE L/MIN CONTINUOUS ] Future Scheduled Test PT / COATING MIXER SUPERVISOR T O MONITOR FOR HYPO/HYPERGLYCEMIA AND CONDUCT ROUTINE FOOT INSPECTIONS. RECORD PATIENT REPORTED BLOOD SUGAR LEVELS AND NOTIFY PHYSICIAN AND/OR THE RN CLINICAL MANUFACTURING ENGINEER AUTOMOTIVE FOR PHYSICIAN NOTIFICATION IF BLOOD SUGAR LEVELS ARE OUTSIDE ORDERED PARAMETERS. TEACH PATIENT/CAREGIVER ON DAILY FOOT INSPECTIONS [code = PT / COATING MIXER SUPERVISOR TO MONITOR FOR HYPO/HYPERGLYCEMIA AND CONDUCT ROUTINE FOOT INSPECTIONS. RECORD PATIENT REPORTED BLOOD SUGAR LEVELS AND NOTIFY PHYSICIAN AND/OR THE RN CLINICAL MANUFACTURING ENGINEER AUTOMOTIVE FOR PHYSICIAN NOTIFICATION IF BLOOD SUGAR LEVELS ARE OUTSIDE ORDERED PARAMETERS. TEACH PATIENT/CAREGIVER ON DAILY FOOT INSPECTIONS] Future Scheduled Test NEUROMUSCU LAR RE-EDUCATION / BALANCE / POSTURAL CONTROL (PT) [code = NEUROMUSCULAR RE-EDUCATION / BALANCE / POSTURAL CONTROL (PT)] Future Scheduled Test PT / COATING MIXER SUPERVISOR T O EDUCATE ON HEART FAILURE SELF-MANAGEMENT [code = PT / COATING MIXER SUPERVISOR TO EDUCATE ON HEART FAILURE SELF-MANAGEMENT] Future Scheduled Test PT / COATING MIXER SUPERVISOR T O EDUCATE ON HYPERTENSION SELF-MANAGEMENT [code = PT / COATING MIXER SUPERVISOR TO EDUCATE ON HYPERTENSION SELF-MANAGEMENT] Future Scheduled Test PT / COATING MIXER SUPERVISOR T O EDUCATE ON COPD SELF-MANAGEMENT [code = PT / COATING MIXER SUPERVISOR TO EDUCATE ON COPD SELF-MANAGEMENT] Future Scheduled Test PT / COATING MIXER SUPERVISOR T O EDUCATE ON DIABETES SELF- MANAGEMENT [code = PT / COATING MIXER SUPERVISOR TO EDUCATE ON DIABETES SELF- MANAGEMENT] Goal Patient Goal - T O GET STRONGER AND SLEEP IN HIS BED Goal Provider Goal - PATIENT WILL DEMONSTRATE PT GOALS MET BY 5.2.25 Goal Provider Goal - PT GOAL: PATIENT/CAREGIVER WILL VERBALIZE UNDERSTANDING OF SIGNS AND SYMPTOMS THAT PUT THE PATIENT AT RISK FOR HOSPITALIZATION /EMERGENCY ROOM VISITS, WHEN TO NOTIFY NURSE/PHYSICIAN OF COMPLICATIONS/DECLINE AND WHEN TO CALL 911. Goal Provider Goal - PT STG: PATIENT WILL DEMONSTRATE IMPROVED BED MOBILITY TO REDUCE THE RISK OF SKIN INTEGRITY ISSUES AND/OR PAIN FROM MIN ASSIST TO INDEP IN 3WEEKS Goal Provider Goal - PT LTG: PATIENT WILL DEMONSTRATE IMPROVED SAFE FUNCTIONAL MOBILITY BY IMPROVING AMBULATION FROM 60 FT WITH ROLLATOR AND CGA TO INDEP FOR 150 FT IN 8WEEKS Goal Provider Goal - PT LTG: PATIENT/CAREGIVER WILL DEMONSTRATE ADHERENCE TO FALL REDUCTION SELF-MANAGEMENT AND REDUCING FALL RISK FACTORS TO MINIMIZE FALL RISK BY 5.2.25 PT LTG: PATIENT WILL BE INDEPENDENT WITH IMPLEMENTATION OF HEP WITHIN 3WEEKS Goal Provider Goal - PT STG: PATIENT WILL DEMONSTRATE IMPROVED ABILITY TO PERFORM SIT TO/FROM STAND TRANSFERS TO REDUCE THE RISK OF SKIN BREAKDOWN AND REDUCE FALL RISK FROM CGA TO INDEP FROM ALL SURFACES IN 3WEEKS Goal Provider Goal - PT LTG: PATIENT WILL NOT EXPERIENCE CARDIAC OR RESPIRATORY COMPLICATIONS THROUGHOUT THE EPISODE OF CARE. Goal Provider Goal - PT LTG: PATIENT WILL MAINTAIN OXYGEN SATURATION WITHIN PHYSICIAN ORDERED PARAMETERS THROUGHOUT EPISODE OF CARE. Goal Provider Goal - PT GOAL: PATIENT/CAREGIVER WILL DEMONSTRATE UNDERSTANDING OF OXYGEN SAFETY, CARE, AND MANAGEMENT BY END OF EPISODE AND PATIENT WILL MAINTAIN SAFE OXYGEN LEVELS DURING ACTIVITY Goal Provider Goal - PATIENTS BLOOD SUGAR WILL REMAIN WELL CONTROLLED WITH SELF-MANAGEMENT THROUGHOUT EPISODE OF CARE. Goal Provider Goal - PT LTG: PATIENT WILL DEMONSTRATE REDUCED FALL RISK EVIDENCED BY IMPROVED TINETTI FROM 18 TO 22 IN 8 WEEKS Goal Provider Goal - PT LTG: PATIENT/CAREGIVER WILL BE ABLE TO IDENTIFY SIGNS OF EXACERBATION OF HEART FAILURE AND VERBALIZE / DEMONSTRATE HOW TO MANAGE SYMPTOMS AND HOW TO ADHERE TO HEART FAILURE SELF-MANAGEMENT AND LIFE-STYLE CHANGES BY 5.2.25 Goal Provider Goal - PT GOAL: PATIENT/CAREGIVER WILL BE ABLE TO IDENTIFY SIGNS OF EXACERBATION OF HYPERTENSION AND WILL VERBALIZE/DEMONSTRATE AN ABILITY TO ADHERE TO HYPERTENSION SELF-MANAGEMENT AND LIFE-STYLE CHANGES BY 5.2.25 Goal Provider Goal - PT GOAL: THE PATIENT / CAREGIVER WILL DEMONSTRATE ADHERENCE TO COPD SELF-MANAGEMENT BY 5.2.25 Goal Provider Goal - PATIENT/CAREGIVER WILL BE ABLE TO IDENTIFY SIGNS OF HYPER- AND HYPOGLYCEMIA AND VERBALIZE HOW TO MANAGE SYMPTOMS. Encounters Start Date/Time End Date/Time Encounter Type Admission Type Attending Clinicians Care Facility Care Department Encounter ID Discharge Date Discharge Status Discharge Condition Discharge Reason Percent Goals Met 2024-06-02 00:00:00 2024-07-31 00:00:00 Outpatient NEW ADMISSION [facility] [id number]
--- OUTSIDE RECORDS SUMMARY | 2024-06-24 17:50 | XMS_ITS | Clinical Summary ---
Author Organization Unknown Care Team Providers Care Storeroom Attendant Name Role Phone FRANCISCO JAVIER OQUENDO Unavailable Unavaila boyd BELL PT, NADER Unavailable Unavailable [employer]NST PROJECT MANAGEMENT, ANMOL Unavailable Unavailable Payers Payer Name Policy Type Policy Number Effective Date Expira tion Date [facility].OPTUM.[email or web address] Problems Condition Name Condition Details Condition Category [...] 05-26 00:00: 00 ATHSCL HEART DISEASE OF [place] CORONARY ARTERY W/O ANG PCTRS Active - [...] W/O RESID DEFICITS Active 04-01 00:00: 00 BLOCKERS SKIVER (CURRENT) USE OF INHALED STEROIDS Active 04-01 [...] on aerosol inhaler 06-02 00:00: 00 Yes [id number] WHEEZING, SHORTNESS OF BREATH 2 puff 4 TIMES DAILY 2 puff 4 TIMES DAILY (route: inhalation ) Med Classific ation: Respirato ry Therapy Agents atropine sulfate (PF) 1 % eye drops in a dropperette 06-02 00:00: 00 Yes [id number] RIGHT EYE 1 dropper ette, single- use drop dispens er 2 TIMES DAILY 1 dropperett e, single-use drop dispenser 2 TIMES DAILY (route: ophthalmic (eye)) Med Classific ation: Ophthalmi c Agents Breztri Aerosphere 160 mcg-9mcg-4. 8mcg/actuat ion HFA aerosol inhaler 06-02 00:00: 00 Yes [id number] COPD 2 puff 2 TIMES DAILY 2 puff 2 TIMES DAILY (route: inhalation ) Med Classific ation: Respirato ry Therapy Agents calcitriol 0.25 mcg capsule 06-02 00:00: 00 Yes [id number] LOW PARATHYROID HORMONE 1 capsule EVERY OTHER DAY 1 capsule EVERY OTHER DAY (route: oral) Med Classific ation: Electroly te Balance-N utritiona l Products diclofenac 1 % topical gel 06-02 00:00: 00 Yes [id number] NEEDED FOR KNEE PAIN 1 inch 4 TIMES DAILY 1 inch 4 TIMES DAILY (route: topical) Med Classific ation: Dermatolo gical ferrous sulfate 325 mg (65 mg iron) tablet 06-02 00:00: 00 Yes [id number] SUPPLEMENT 1 tablet DAILY 1 tablet DAILY (route: oral) Med Classific ation: Electroly te Balance-N utritiona l Products finasteride 5 mg tablet 06-02 00:00: 00 Yes [id number] PROSTATE 1 tablet DAILY 1 tablet DAILY (route: oral) Med Classific ation: Genitouri nary Therapy folic acid 1 mg tablet 06-02 00:00: 00 Yes [id number] SUPPLEMENT 1 tablet DAILY 1 tablet DAILY (route: oral) Med Classific ation: Electroly te Balance-N utritiona l Products guaifenesin 400 mg tablet 06-02 00:00: 00 Yes [id number] NEEDED FOR COUGH AND CONGESTION 1 tablet EVERY 4 HOURS 1 tablet EVERY 4 HOURS (route: oral) Med Classific ation: Respirato ry Therapy Agents metoprolol succinate ER 25 mg tablet,exte nded release 24 hr 06-02 00:00: 00 Yes [id number] HIGH BLOOD PRESSURE .5 tablet DAILY .5 tablet DAILY (route: oral) Med Classific ation: Cardiovas cular Therapy Agents pantoprazol e 40 mg tablet,uziel yed release 06-02 00:00: 00 Yes [id number] GERD 1 tablet DAILY 1 tablet DAILY (route: oral) Med Classific ation: Gastroint estinal Therapy Agents prednisolon e acetate 1 % eye drops,suspe nsion 06-02 00:00: 00 Yes [id number] EYE INFLAMMATIO N 1 drops 2 TIMES DAILY 1 drops 2 TIMES DAILY (route: ophthalmic (eye)) Med Classific ation: Ophthalmi c Agents pregabalin 25 mg capsule 06-02 00:00: 00 Yes [id number] NERVE PAIN 1 capsule DAILY 1 capsule DAILY (route: oral) Med Classific ation: Central Nervous System Agents sitagliptin 25 mg tablet 06-02 00:00: 00 Yes [id number] DIABETES 1 tablet DAILY 1 tablet DAILY (route: oral) Med Classific ation: Endocrine tamsulosin 0.4 mg capsule 06-02 00:00: 00 Yes [id number] PROSTATE HEALTH 1 capsule DAILY 1 capsule DAILY (route: oral) Med Classific ation: Genitouri nary Therapy torsemide 20 mg tablet 06-02 00:00: 00 Yes [id number] FLUID OVERLOAD 1 tablet 2 TIMES DAILY [...] TO EVALUATE, OBSERVE / ASSESS, AND MONITOR, PROJECT MANAGEMENT TO OBSERVE AND MONITOR, PROVIDE SKILLED THERAPEUTIC INTERVENTION, ACTIVITY, EDUCATION, AND TRAINING TO ADDRESS; PATIENT HAS PAST MEDICAL HISTORY OF CAD S/P CABG, HEART FAILURE, CKD STAGE 4, HTN, COPD, AFUA, CVA, UMBILICAL HERNIA, MILD PULMONARY HTN, DMII, AFIB, AORTIC STENOSIS. [facility] WILL MONITOR PATIENT FOR SIGNS AND SYMPTOMS OF EXACERBATION OF THESE DIAGNOSES AND WILL NOTIFY PROVIDER OF ANY CONCERNS OR CHANGES THAT ARISE. [code = AGENCY MAY PERFORM A RESUMPTION OF CARE VISIT FOLLOWING ANY HOSPITAL ADMISSION. PT TO EVALUATE, OBSERVE / ASSESS, AND MONITOR, PROJECT MANAGEMENT TO OBSERVE AND MONITOR, PROVIDE SKILLED THERAPEUTIC INTERVENTION, ACTIVITY, EDUCATION, AND TRAINING TO ADDRESS; PATIENT HAS PAST MEDICAL HISTORY OF CAD S/P CABG, HEART FAILURE, CKD STAGE 4, HTN, COPD, AFUA, CVA, UMBILICAL HERNIA, MILD PULMONARY HTN, DMII, AFIB, AORTIC STENOSIS. [facility] WILL MONITOR PATIENT FOR SIGNS AND SYMPTOMS OF EXACERBATION OF THESE DIAGNOSES AND WILL NOTIFY PROVIDER OF ANY CONCERNS OR CHANGES THAT ARISE. ] Future Scheduled Test PT / PROJECT MANAGEMENT T O INSTRUCT PATIENT/CAREGIVER ON RISK FOR HOSPITALIZATION/EMERGENCY ROOM VISITS, TEACH SIGNS AND SYMPTOMS THAT PUT PATIENT AT RISK, WHEN TO NOTIFY NURSE/PHYSICIAN OF COMPLICATIONS/DECLINE, AND WHEN TO CALL 911. [code = PT / PROJECT MANAGEMENT TO INSTRUCT PATIENT/CAREGIVER ON RISK FOR HOSPITALIZATION/EMERGENCY ROOM VISITS, TEACH SIGNS AND SYMPTOMS THAT PUT PATIENT AT RISK, WHEN TO NOTIFY NURSE/PHYSICIAN OF COMPLICATIONS/DECLINE, AND WHEN TO CALL 911.] Future Scheduled Test BED MOBILI TY (PT/PROJECT MANAGEMENT) [code = BED MOBILITY (PT/PROJECT MANAGEMENT)] Future Scheduled Test PT/PROJECT MANAGEMENT TO PROVIDE GAIT TRAINING FOR IMPROVED MOBILITY AND /OR TO NORMALIZE GAIT PATTERN [code = PT/PROJECT MANAGEMENT TO PROVIDE GAIT TRAINING FOR IMPROVED MOBILITY AND /OR TO NORMALIZE GAIT PATTERN] Future Scheduled Test PT/PROJECT MANAGEMENT TO IDENTIFY FALL RISK FACTORS; EDUCATE THE PATIENT/CAREGIVER ON WAYS TO REDUCE FALL RISK FACTORS AND ESTABLISH HOME EXERCISE PROGRAM TO MINIMIZE FALL RISK. MAY TEACH THE PATIENT FLOOR RECOVERY WHEN CLINICALLY APPROPRIATE [code = PT/PROJECT MANAGEMENT TO IDENTIFY FALL RISK FACTORS; EDUCATE THE PATIENT/CAREGIVER ON WAYS TO REDUCE FALL RISK FACTORS AND ESTABLISH HOME EXERCISE PROGRAM TO MINIMIZE FALL RISK. MAY TEACH THE PATIENT FLOOR RECOVERY WHEN CLINICALLY APPROPRIATE] Future Scheduled Test SIT TO/FRO M STAND TRANSFERS (PT/PROJECT MANAGEMENT) [code = SIT TO/FROM STAND TRANSFERS (PT/PROJECT MANAGEMENT)] Future Scheduled Test PT TO ASSE SS / PROJECT MANAGEMENT TO MONITOR CARDIO/RESPIRATORY SYSTEM; AND NOTIFY THE PHYSICIAN AND/OR THE RN CLINICAL DOWEL MACHINE OPERATOR FOR PHYSICIAN NOTIFICATION FOR EARLY SIGNS AND SYMPTOMS OF EXACERBATION OR DETERIORATION. [code = PT TO ASSESS / PROJECT MANAGEMENT TO MONITOR CARDIO/RESPIRATORY SYSTEM; AND NOTIFY THE PHYSICIAN AND/OR THE RN CLINICAL DOWEL MACHINE OPERATOR FOR PHYSICIAN NOTIFICATION FOR EARLY SIGNS AND SYMPTOMS OF EXACERBATION OR DETERIORATION.] Future Scheduled Test PT / PROJECT MANAGEMENT T O MONITOR AND EDUCATE ON OXYGEN SATURATION DURING ADLS/IADLS, NOTIFY PHYSICIAN AND/OR THE RN CLINICAL DOWEL MACHINE OPERATOR FOR PHYSICIAN NOTIFICATION AND IF O2 SATS BELOW PHYSICIAN ORDERED PARAMETERS AFTER 10 MIN OF REST [code = PT / PROJECT MANAGEMENT TO MONITOR AND EDUCATE ON OXYGEN SATURATION DURING ADLS/IADLS, NOTIFY PHYSICIAN AND/OR THE RN CLINICAL DOWEL MACHINE OPERATOR FOR PHYSICIAN NOTIFICATION AND IF O2 SATS BELOW PHYSICIAN ORDERED PARAMETERS AFTER 10 MIN OF REST] Future Scheduled Test PT / PROJECT MANAGEMENT T O EDUCATE PATIENT / CAREGIVER ON OXYGEN MANAGEMENT; OXYGEN FLOW RATE L/MIN CONTINUOUS [code = PT / PROJECT MANAGEMENT TO EDUCATE PATIENT / CAREGIVER ON OXYGEN MANAGEMENT; OXYGEN FLOW RATE L/MIN CONTINUOUS ] Future Scheduled Test PT / PROJECT MANAGEMENT T O MONITOR FOR HYPO/HYPERGLYCEMIA AND CONDUCT ROUTINE FOOT INSPECTIONS. RECORD PATIENT REPORTED BLOOD SUGAR LEVELS AND NOTIFY PHYSICIAN AND/OR THE RN CLINICAL DOWEL MACHINE OPERATOR FOR PHYSICIAN NOTIFICATION IF BLOOD SUGAR LEVELS ARE OUTSIDE ORDERED PARAMETERS. TEACH PATIENT/CAREGIVER ON DAILY FOOT INSPECTIONS [code = PT / PROJECT MANAGEMENT TO MONITOR FOR HYPO/HYPERGLYCEMIA AND CONDUCT ROUTINE FOOT INSPECTIONS. RECORD PATIENT REPORTED BLOOD SUGAR LEVELS AND NOTIFY PHYSICIAN AND/OR THE RN CLINICAL DOWEL MACHINE OPERATOR FOR PHYSICIAN NOTIFICATION IF BLOOD SUGAR LEVELS ARE OUTSIDE ORDERED PARAMETERS. TEACH PATIENT/CAREGIVER ON DAILY FOOT INSPECTIONS] Future Scheduled Test NEUROMUSCU LAR RE-EDUCATION / BALANCE / POSTURAL CONTROL (PT) [code = NEUROMUSCULAR RE-EDUCATION / BALANCE / POSTURAL CONTROL (PT)] Future Scheduled Test PT / PROJECT MANAGEMENT T O EDUCATE ON HEART FAILURE SELF-MANAGEMENT [code = PT / PROJECT MANAGEMENT TO EDUCATE ON HEART FAILURE SELF-MANAGEMENT] Future Scheduled Test PT / PROJECT MANAGEMENT T O EDUCATE ON HYPERTENSION SELF-MANAGEMENT [code = PT / PROJECT MANAGEMENT TO EDUCATE ON HYPERTENSION SELF-MANAGEMENT] Future Scheduled Test PT / PROJECT MANAGEMENT T O EDUCATE ON COPD SELF-MANAGEMENT [code = PT / PROJECT MANAGEMENT TO EDUCATE ON COPD SELF-MANAGEMENT] Future Scheduled Test PT / PROJECT MANAGEMENT T O EDUCATE ON DIABETES SELF- MANAGEMENT [code = PT / PROJECT MANAGEMENT TO EDUCATE ON DIABETES SELF- MANAGEMENT] Goal [...] 2024-07-31 00:00:00 Outpatient NEW ADMISSION NADER [facility] [id number]
--- OUTSIDE RECORDS SUMMARY | 2024-06-24 17:50 | XMS_ITS | Continuity of Care Document ---
Author Organization [facility] Address [address] [place] [address] Phone Care Team Providers Care County Agent Name Role Phone Jonn Trinh Unavailable Unavailable Procedures Procedure Date Eye Exam Established Pt Ophthalmoscopy, Subsequent Ophthalmoscopy, Subsequent Office/outpatient Visit, Est Advance Directives Directive Yes / No Effective Date File Name No Information Encounters Encounter Description Practice Location Reason(s) For Visit Diagnoses Date Provider Providers Copied on Encounter [facility], [address], [place], [place], [address], [place] tel:[phone] [facility] No Information [address] [place], [address], [place]. tel:[phone] Office/outpat ient Visit, Est [facility], [address] [place] [address] [address], [place], [place], [id number], [place] tel:[phone] [facility] No Information [address] [place], [place], [address], [place]. tel:[phone] Family History Family Member Type Diagnosis Age At Onset No Information Payers Payer name Insurance type Covered libertarian ID Authoriza tion(s) No Information Social History Type Description Quantity Date Captured Comments Sex Male Smoking Status No Information Chief Complaint And Reason For Visit No Information Reason For Referral Reason For Referral No Information History Of Present Illness Encounter Date Complaint History Of Prese nt Illness No Information Functional Status Date Functional Assessmen t No Information Instructions Date Instruction Additional Infor mation No Information Assessments Type Assessment Date No Information Patient Care Teams Name Effective Dates (start - stop) Status Members No Information
[2024-06-24 17:51] LABS: Add Urine Microscopic? YES; Appearance Urine Cloudy (Clear); Bacteria Urine None Seen /hpf; Bilirubin Urine Negative (Negative); Blood Urine Negative (Negative); Color Urine Yellow (Yellow); Glucose Urine UA 1+ mg/dL (Negative); Ketones Urine Negative (Negative); Leukocyte Esterase Ur Trace LEU/UL (Negative); Need Manual Microscopic Reviewed; Nitrate Urine Negative (Negative); Protein Urine Negative (Negative); RBC Urine 0-2 /hpf (0-2); Specific Grav Ur 1.012 (1.001-1.035); Squamous Epithelial Cell Urine None Seen /hpf (Few); Urobilinogen Urine 0.2 mg/dL (<2.0)
[2024-06-24] MEDS: LACTATED RINGERS 1,000 ML 999 ML IV CONT (18:38)
--- NOTE | 2024-06-24 18:44 | PC.NURSE ---
Dr. Duarte at bedside updating pt. .
--- NOTE | 2024-06-24 19:00 | PC.NURSE ---
Pt. lost peripheral IV access. IV removed. This RN and Nelly RN attempted additional access with no success. ARON Farias to bedside to attempt additional access.
--- NOTE | 2024-06-24 20:04 | PC.NURSE ---
IV infusion completion delayed d/t loss of access. Lactated Ringer's continues to infuse at this time.
--- NOTE | 2024-06-24 21:15 | PC.NURSE ---
Pt. is drowsy but will wake up to verbal. A&Ox3.
--- NOTE | 2024-06-24 21:20 | PC.NURSE ---
Pt. and son state they are leaving bedside. Update provided at bedside by Dr. Henao prior to them leaving. All questions answered. Pt. can be called for verbal consent for transfer at any time tonjennifer: Darcie Self [phone]. Secondary contact who is also able to give consent is pt. son Jared Self [phone].
--- NOTE | 2024-06-24 21:40 | PC.NURSE ---
This RN spoke with the [facility] transfer center. Accepting doctor is Olesya Mcgraw. No estimate on when a bed will be available. Dr. Henao notified.
--- NOTE | 2024-06-24 21:50 | PC.NURSE ---
Neuro exam revealed a weak worm sorter to LUE. This is different from exam charted previously. Dr. Henao notified and to bedside. No additional interventions at this time.
--- NOTE | 2024-06-24 21:54 | ECG_ITS ---
Test Date: 2024-06-24 22:05:37 Measurements Intervals [place] Rate: 65 P: 0 ID: 0 QRS: 219 QRSD: 180 T: 46 QT: 494 QTc: 517 Interpretive Statements ELECTRONIC VENTRICULAR PACEMAKER ABNORMAL RHYTHM ECG Compared to ECG 06/24/2024 17:07:59 No significant changes Electronically Signed On 06-25-2024 11:43:39 CDT by Omer Sanchez M.D.
[2024-06-24 22:31] LABS: Troponin I 0.078 ng/mL (0.000-0.034)
--- NOTE | 2024-06-24 22:54 | PC.NURSE ---
This RN attempted to get pt. to take ordered aspirin. BiPAP removed to assess pt. ability to drink water and pt. yelled leave me alone! multiple times. Unable to administer aspirin at this time or assess pt. ability to swallow. Speech clear.
--- NOTE | 2024-06-24 22:56 | PC.NURSE ---
Dr. Henao aware of pt. refusal.
--- NOTE | 2024-06-24 23:23 | PC.NURSE ---
Report given to ELIAS Broderick. All questions answered at this time.
--- NOTE | 2024-06-24 23:24 | PC.NURSE ---
Report given to ELIAS Broderick. All questions answered at this time.
[2024-06-24] MEDS: ASPIRIN 300 MG SUPPOSITORY RECTAL (23:34)
[2024-06-25] VITALS (41 sets, daily range): BP systolic 98–118; BP diastolic 51–83; PULSE 60–97; RESP 14–28; TEMP 36.3–36.8; O2SAT 92–100; BMI 30.5
[2024-06-25 00:02] LABS: Glucose Point of Care 230 mg/dl (65-105)
--- NOTE | 2024-06-25 10:21 | PC.NURSE ---
Update provided to [facility].
[2024-06-25 13:39] LABS: Glucose Point of Care 215 mg/dl (65-105)
--- NOTE | 2024-06-25 19:09 | PC.NURSE ---
Discussed with Dr Duarte concern for pt remaining NPO and no IVF and possibility of admitting pt here until can get a bed at [facility]. States that he does not want pt to have IVF d/t CHF. Discussed with family reason for NPO and ways we can attempt to make pt more comfortable. Pt pulled up in bed and tech assisted with getting pt into hospital bed. I was told that there was no Neuro here tomorrow so pt would not be able to be admitted.
--- NOTE | 2024-06-25 19:22 | PC.NURSE ---
put patient in hospital bed for comfort while waiting for a bed at [facility]
--- NOTE | 2024-06-25 21:49 | P.HP_ITS ---
H&P: HPI History of Present Illness Date/Time: 06/25/24 21:49 Chief Complaint: Altered mental status Narrative: This is an 84-year-old male with a significant past medical history who presented to the hospital for evaluation of altered mental status. Patient was found by staff members at his group home facility to be somnolent and minimally arousable to verbal or painful stimuli and EMS was called to the scene. Upon EMS arrival patient was able to be stimulated by EMS en route, woke up, and was then alert and oriented x4. Workup in the hospital included a head CT which showed hyperdensity in the left posterior temporal/occipital area which is suggestive of acute/subacute infarct with multiple hyperdensities which may be hemorrhagic areas. Chest x-ray showed bilateral basal atelectasis versus p neumonia with bilateral pleural effusion, cardiomegaly with cardiac decompensation and pulmonary edema. Head/neck CTA shown a normal CTA of the head, CTA of the neck shows severe calcification of the carotid arteries, bilateral pleural effusion with adjacent atelectasis versus pneumonia. Initial labs showed a white blood cell count of 5.0, hemoglobin 9.5, platelet count 131, sodium 129, chloride 87, bicarb 36, creatinine 2.49, EGFR 25, blood sugars ranging 215-311, troponin 0.078> 0.078, TSH was normal at 3.770. VBG showed a pH of 7.276, pCO2 of 71.4, PO2 29.2, bicarb 32.5 on room air. UA was obtained which showed cloudy urine appearance, 1+ glucose, trace leukocytes, 6-10 urine WBC, 11-20 urine cast. Urine culture was obtained and shown Gram-negative bacilli isolated on preliminary read. EKG showed electronic ventricular pacemaker with a rate of 65, QTC 517. Was placed on BiPAP for a hypercapnia while in the ED. he was also given aspirin 300 mg rectal and Rocephin while in the ED. patient currently has an electronic pacemaker and is unable to get MRI at our facility and he is currently pending transfer to [facility]. 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 Chronic anemia Chronic renal failure, stage 3 (moderate) Chronic respiratory failure with hypoxia He wears oxygen at 2 L per nasal cannula Hypertension Sleep apnea The patient no longer uses and CPAP machine CAD (coronary artery disease) Pacemaker CHF (congestive heart failure) COPD (chronic obstructive pulmonary disease) Surgical History Surgical History H/O cystoscopy With bladder biopsy S/P CABG x 5 S/P heart valve repair Stented coronary artery X1 Family History Family History Daughter Scleroderma Social History Social History Social History: The patient lives with his who is the durable power senior attorney for healthcare. The patient desires to be a full code but does not want to be in a vegetative state on a ventilator. Patient is retired from working for the [employer]. He had a son and a daughter but his daughter with the scleroderma. Patient does not use any alcohol, marijuana, or illicit drugs. The patient stated that he quit smoking 40 years ago. The patient served in the [employer] in [place] and suffers from exposure from agent orange. Smoking packs per day: 2 Smoking cigarettes per day: 40.0 Years smoked: 22 Smoking pack-years: 44.00 Smoking status: Former smoker Second hand tobacco smoke exposure: No Alcohol intake: never Substance use: never Do You Feel Safe in your Home?: Yes Lack of Transportation: No Lack of Food: Never True Current Housing: I Have Housing Concerned About Future Housing: No Difficulty Paying Gas/Electric Bills: No Difficulty Paying for Meds: No Currently Unemployed: No Education: High School Diploma/GED Difficulty w/ Childcare or Family Care: No Gender identity (if verbalized by the patient): Male Spiritual care concerns: No Meds Home Medications and Allergies Home Medications ?Medication ?Instructions ?Recorded ?Confirmed ?Type albuterol sulfate 90 mcg/actuation 2 puff inhalation QID PRN 09/03/20 06/25/24 History aerosol inhaler Shortness Of Breath Or Wheezing aspirin 81 mg chewable tablet 81 mg PO DAILY 09/03/20 06/25/24 History atorvastatin 40 mg tablet 40 mg PO HS 09/03/20 06/25/24 History cholecalciferol (vitamin D3) 25 25 mcg PO DAILY 09/03/20 06/25/24 History mcg (1,000 unit) tablet cyanocobalamin (vitamin B-12) 1,000 mcg PO DAILY 09/03/20 06/25/24 History 1,000 mcg tablet ferrous sulfate 325 mg (65 mg 325 mg PO BID 09/03/20 06/25/24 History iron) tablet isosorbide mononitrate 10 mg tablet 15 mg PO BID 09/03/20 06/25/24 History magnesium oxide 400 mg PO DAILY 09/03/20 06/25/24 History pantoprazole 40 mg tablet,delayed 40 mg PO QAM 09/03/20 06/25/24 History release (Protonix) tamsulosin 0.4 mg capsule (Flomax) 0.4 mg PO .pm 09/03/20 06/25/24 History tiotropium bromide 2.5 2 puff inhalation DAILY 09/03/20 06/25/24 History mcg/actuation mist for inhalation bumetanide 1 mg tablet 1 mg PO BID #60 tabs 09/08/20 06/25/24 Rx metolazone 2.5 mg tablet 2.5 mg PO WEEKLY #30 tabs 09/08/20 06/25/24 Rx nitroglycerin 0.4 mg sublingual 0.4 mg sublingual Q5MIN PRN Chest 09/08/20 06/25/24 Rx tablet (Nitrostat) Pain #25 tabs atropine sulfate (PF) 1 % eye 1 drp RIGHT EYE .Q12HR 06/10/24 06/25/24 History drops in a dropperette budesonide 160 mcg-glycopyr 9 2 inh inhalation .Q12HR 06/10/24 06/25/24 History mcg-formot 4.8 mcg/actuation HFA inhaler (Breztri Aerosphere) calcitriol 0.25 mcg capsule 0.25 mcg PO 3XW 06/10/24 06/25/24 History diclofenac sodium 1 % topical gel 2 g topical QID PRN pain 06/10/24 06/25/24 History finasteride 5 mg tablet 5 mg PO DAILY 06/10/24 06/25/24 History folic acid 1 mg tablet 1 mg PO DAILY 06/10/24 06/25/24 History guaifenesin 400 mg tablet 400 mg PO Q4H PRN cough 06/10/24 06/25/24 History (G-Fenesin) metoprolol succinate 25 mg 25 mg PO QAM 06/10/24 06/25/24 History tablet,extended release 24 hr (Toprol XL) prednisolone acetate (PF) 1 % eye 1 drp RIGHT EYE Q12H 06/10/24 06/25/24 History drops,suspension pregabalin 25 mg capsule 25 mg PO HS 06/10/24 06/25/24 History sitagliptin 25 mg tablet 25 mg PO DAILY 06/10/24 06/25/24 History acetaminophen 325 mg tablet 650 mg PO Q4-6H PRN pain 06/25/24 06/25/24 History furosemide 40 mg tablet 40 mg PO DAILY 06/25/24 06/25/24 History Allergies Allergy/AdvReac Type Severity Reaction Status Date / Time latex Allergy Unknown Rash Verified 06/25/24 06:09 lisinopril Allergy Unknown Unknown Verified 06/25/24 06:09 Vital Signs Vital Signs - 24 hr 06/24/24 23:27 06/24/24 23:28 06/24/24 23:40 Temperature 98.4 F Pulse Rate 60 62 82 Respiratory Rate 16 14 Blood Pressure 100/62 Pulse Oximetry 100 100 Oxygen Delivery BiPAP 06/25/24 01:23 06/25/24 01:45 06/25/24 02:59 Temperature 98.1 F 97.9 F Pulse Rate 60 75 62 Respiratory Rate 17 17 18 Blood Pressure 100/68 115/60 Pulse Oximetry 100 100 100 Oxygen Delivery BiPAP 06/25/24 03:45 06/25/24 04:50 06/25/24 05:46 Temperature 97.4 F L Pulse Rate 66 61 65 Respiratory Rate 20 18 23 H Blood Pressure 104/69 Pulse Oximetry 100 100 99 Oxygen Delivery BiPAP BiPAP 06/25/24 06:59 06/25/24 07:13 06/25/24 07:16 Temperature 98.3 F Pulse Rate 62 62 65 Respiratory Rate 17 19 18 Blood Pressure 98/53 L 99/53 L 99/53 L Pulse Oximetry 99 98 99 Oxygen Delivery 06/25/24 07:39 06/25/24 08:04 06/25/24 08:31 Temperature Pulse Rate 63 67 78 Respiratory Rate 20 19 15 Blood Pressure 104/52 L 101/80 Pulse Oximetry 100 97 92 Oxygen Delivery BiPAP 06/25/24 09:16 06/25/24 09:46 06/25/24 10:31 Temperature Pulse Rate 71 84 66 Respiratory Rate 18 18 17 Blood Pressure 109/57 L 100/61 110/57 L Pulse Oximetry 97 97 98 Oxygen Delivery 06/25/24 11:16 06/25/24 11:31 06/25/24 12:16 Temperature Pulse Rate 60 79 60 Respiratory Rate 16 17 20 Blood Pressure 115/57 L 104/61 108/55 L Pulse Oximetry 98 98 98 Oxygen Delivery 06/25/24 12:46 06/25/24 13:01 06/25/24 13:16 Temperature Pulse Rate 66 68 64 Respiratory Rate 18 19 14 Blood Pressure 112/61 110/61 110/83 Pulse Oximetry 100 100 97 Oxygen Delivery 06/25/24 14:01 06/25/24 14:31 06/25/24 14:46 Temperature Pulse Rate 66 67 60 Respiratory Rate 18 17 19 Blood Pressure 114/55 L 105/57 L 104/55 L Pulse Oximetry 100 100 100 Oxygen Delivery 06/25/24 15:16 06/25/24 15:31 06/25/24 16:00 Temperature Pulse Rate 65 71 61 Respiratory Rate 16 19 17 Blood Pressure 98/71 L 109/51 L 107/55 L Pulse Oximetry 100 100 100 Oxygen Delivery 06/25/24 16:31 06/25/24 16:46 06/25/24 17:08 Temperature Pulse Rate 64 68 63 Respiratory Rate 18 20 28 H Blood Pressure 105/72 107/51 L Pulse Oximetry 100 100 100 Oxygen Delivery 06/25/24 17:16 06/25/24 17:18 06/25/24 17:30 Temperature Pulse Rate 65 62 60 Respiratory Rate 22 H 18 17 Blood Pressure 113/76 Pulse Oximetry 100 100 100 Oxygen Delivery 06/25/24 17:31 06/25/24 18:51 06/25/24 21:21 Temperature Pulse Rate 97 68 60 Respiratory Rate 20 23 H 14 Blood Pressure 108/52 L 102/54 L Pulse Oximetry 100 100 100 Oxygen Delivery Exam Narrative: General: In no acute distress, well nourished Head: atraumatic, no encephalopathy Eyes: PERRLA, sclera clear ENT: moist mucous membranes, nasal passages clear Neck: supple, no JVD, no adenopathy, trachea midline Cardiac: Normal S1 and S2. No murmur, gallops or friction rubs, peripheral pulses intact. Respiratory:Inspiratory and expiratory wheezing, no other adventitious lung sounds, currently on nasal cannula with use of accessory muscles and acute respiratory distress. Gastrointestinal: soft, non-distended, non-tender, normoactive bowel sounds. : voiding without difficulty. Extremities:BUE with good hand interpersonal communications professor 4/5 bilaterally, 4+ pitting edema to bilateral lower extremities Skin: clean, dry, intact. No wounds or lesions. Neuro: Alert and oriented x4, cranial nerves intact, no neuro deficits. Psych: normal mood, normal affect, interactive H&P: Results Labs Labs: Cardiac Enzymes 06/24/24 Range/Units 22:02 Troponin I 0.078 H* (0.000-0.034) ng/mL Imaging Head/neck CTA: Radiologist's impression: CTA brain carotid Ordering provider: Manav Duarte MD History: . stroke . Comparison: None. Technique: CT angiogram head and neck was performed following timed intravenous injection of contrast. Thin slice axial images and reformatted coronal images were obtained. Three dimensional reformatted images of the brain were also obtained using a [employer] workstation. Radiation reduction technique utilized.The dose-length product was 1229.15 mGy-cm. 100 mL Omnipaque 350 was given IV. FINDINGS: HEAD: --ANTERIOR AND MIDDLE CEREBRAL ARTERIES AND BRANCHES: Normal caliber and contour. --INTERNAL CAROTID ARTERIES: Mild atheromatous disease but no significant stenosis. No occlusion. --BASILAR ARTERY AND BRANCHES: Slightly smaller caliber and normal contour. No atheromatous disease. --POSTERIOR CEREBRAL ARTERIES: The distal left posterior cerebral artery is not well demonstrated. Otherwise Normal caliber and contour --POSTERIOR COMMUNICATING ARTERIES: Left posterior communicating artery con tinues as the posterior cerebral artery. The right is not visualized which is probably related to congenital absence or small size. --ANEURYSM: None visualized. --BRAIN: Please refer to report of CT head performed the same day. --BONES AND SUPERFICIAL SOFT TISSUES: Please refer to report of CT head performed the same day. --PARANASAL SINUSES AND MASTOIDS: Please refer to report of CT head done the same day. NECK: --RIGHT CERVICAL CAROTID SYSTEM: Severe atheromatous disease of the carotid bulb and proximal internal carotid artery. Percent stenosis per NASCET criteria is 50%. No carotid dissection. Otherwise, no significant atheromatous disease or stenosis of the cervical carotid system. --LEFT CERVICAL CAROTID SYSTEM: Mild atheromatous disease of the carotid bulb and proximal internal carotid artery without significant stenosis. Percent stenosis per NASCET criteria is 20% No carotid dissection. Otherwise, no significant atheromatous disease or stenosis of the cervical carotid system. --VERTEBRAL ARTERIES: Dominant right vertebral artery. Otherwise, Normal caliber and contour. --VISUALIZED AORTIC ARCH AND BRANCHING VESSELS: Mild atheromatous disease but no significant stenosis. Cardiomegaly. --SOFT TISSUES: Normal. Bilateral pleural effusion with adjacent atelectasis. --CERVICAL SPINE: Age appropriate degenerative changes. IMPRESSION: 1. Nonvisualization of the distal left posterior cerebral artery. Otherwise normal CTA of the head. 2. CTA of the neck. Shows severe calcification of the carotid arteries. Percent stenosis per NASCET criteria is 60% on the right side. 3. Bilateral pleural effusion with adjacent atelectasis versus pneumonia. Reviewed, dictated and finalized at location A. Chest x-ray: Radiologist's impression: XR chest 1V Ordering provider: Manav Duarte MD History: 84 years Male with . AMS . Comparison: June 09, 2024 FINDINGS: MEDIASTINUM: The cardiac silhouette is moderately enlarged. Left bipolar pacemaker. Postoperative changes in the mediastinum. Congestive maciej. LUNGS: No pneumothorax. Bilateral interstitial thickening. Bilateral basal opacification with bilateral pleural effusion. OTHER: No free air under the diaphragm. IMPRESSION: Bilateral basal atelectasis versus pneumonia with bilateral pleural effusion. Cardiomegaly with cardiac decompensation and pulmonary edema. Clinical correlation advised. Reviewed, dictated and finalized at location A. CT scan - head: Radiologist's impression: CT brain wo con Ordering provider: Manav Duarte MD History: 84 years Male with . AMS . Comparison: None. Technique: CT of the head without contrast. Radiation reduction technique utilized.The dose-length product was 681 mGy-cm. FINDINGS: BRAIN PARENCHYMA AND CSF SPACES: Hypodensity in the left posterior temporal area which may indicate acute/subacute infarct. MRI evaluation advised. Hyperdensities are seen in the area which may indicate hemorrhagic changes. Calcification is not excluded. Mild leukoaraiosis and diffuse cortical atrophy. Mild atheromatous disease. No midline shift, or mass effect.. The brain parenchyma and CSF spaces are otherwise normal. VISUALIZED PARANASAL SINUSES: Bilateral maxillary sinus disease. Otherwise, Well aerated. MASTOIDS: Well aerated. BONES: The bones appear intact. SOFT TISSUES: Visualized nasopharynx is normal. Superficial soft tissues are normal. IMPRESSION: Hypodensity in the left posterior temporal/occipital area which is suggestive of acute/subacute infarct with multiple hyperdensities which may be hemorrhagic areas. Calcification is less likely. MRI evaluation is advised. Physician: Manav Duarte MD Was notified with the result of the patient at time 6:45 PM on June 24, 2024. Reviewed, dictated and finalized at location A. Assessment and Plan Assessment and plan (1) Acute ischemic stroke: Code(s): I63.9 - Cerebral infarction, unspecified Status: Acute Assessment and Plan: * Head CT shown hypodensity in the left posterior temporal/occipital area suggestive of acute/subacute infarct with multiple hyperdensities which may be hemorrhagic areas * Head/neck CTA showed severe calcification of the carotid arteries 60% on the right side, bilateral pleural effusion with adjacent atelectasis versus pneumonia * Awaiting transfer to [facility] * MRI of the brain and brainstem ordered however patient has pacemaker (2) Acute and chronic respiratory failure with hypercapnia: Code(s): J96.22 - Acute and chronic respiratory failure with hypercapnia Status: Acute Assessment and Plan: * ABG showing a pH of 7.313, pCO2 61.6, bicarb 30.5, PO2 90.9 * Continue BiPAP (3) CHF (congestive heart failure): Code(s): I50.9 - Heart failure, unspecified Status: Chronic Assessment and Plan: * ProBNP greater than 30,000, patient has 4+ pitting edema to bilateral lower extremities * Troponin 0.078> 0.078> 0.070--likely demand ischemia * Bumex 1 mg IV push given overnight * Last echocardiogram reviewed from 06/10/2024 which shown mildly reduced LV systolic function with an estimated EF of 40-45%, right ventricular systolic function is reduced, left and right atrial chamber severely enlarged, bioprosthetic valve appears to be well seated, pulmonary hypertension with an estimated pulmonary arterial systolic pressure of 66 mmHg * Initial chest x-ray shown bilateral basal atelectasis versus pneumonia with bilateral pleural effusion, cardiomegaly with cardiac decompensation and pulmonary edema * Will repeat chest x-ray this morning * Continue metoprolol * Continue IV diuresis with Lasix 40 mg BID (4) Elevated d-dimer: Code(s): R79.89 - Other specified abnormal findings of blood chemistry Status: Acute Assessment and Plan: * D-dimer 1.9 * Will get V/Q scan today to rule out PE * Venous Doppler to rule out DVT (5) DM2 (diabetes mellitus, type 2): Code(s): E11.9 - Type 2 diabetes mellitus without complications Status: Chronic Assessment and Plan: * Blood sugars ranging 175-230 * Hgb A1C 5.4 on 09/03/2020 * Will recheck hemoglobin A1c * Accu checks AC/HS * High-dose SSI ordered * hypoglycemic protocol in place * Diabetic diet and 2 g sodium diet ordered (6) COPD (chronic obstructive pulmonary disease): Code(s): J44.9 - Chronic obstructive pulmonary disease, unspecified Status: Chronic Assessment and Plan: * DuoNebs ordered q.6 hour (7) Hypertension: Code(s): I10 - Essential (primary) hypertension Status: Chronic Assessment and Plan: * Blood pressure ranging 102/54 to 118/72 * Continue isosorbide (8) CAD (coronary artery disease): Code(s): I25.10 - Atherosclerotic heart disease of [place] coronary artery without angina pectoris Status: Chronic Assessment and Plan: * Status post CABG x5 vessel * Continue atorvastatin (9) Pacemaker: Code(s): Z95.0 - Presence of cardiac pacemaker Status: Acute Assessment and Plan: * Ventricular pacemaker in place * EKG showed electronic ventricular pacemaker with a rate of 65, QTC 517 (10) BPH (benign prostatic hyperplasia): Code(s): N40.0 - Benign prostatic hyperplasia without lower urinary tract symptoms Status: Chronic Assessment and Plan: * Continue finasteride and tamsulosin (11) Chronic anemia: Code(s): D64.9 - Anemia, unspecified Status: Chronic Assessment and Plan: * Hemoglobin 9.4 * Appears to be chronic * Continue ferrous sulfate (12) Sleep apnea: Code(s): G47.30 - Sleep apnea, unspecified Status: Chronic Assessment and Plan: * Patient currently requiring BiPAP due to hypercapnia Quality VTE Prophylaxis VTE prophylaxis: mechanical ordered Hospitalist MIPS Advance Care Plan I have confirmed that the patient's Advanced Care Plan is present, code status is documented, or surrogate decision maker is listed in patient medical record.: Yes Medication Reconciliation I have utilized all available resources to obtain, update and review the patients current medications (includes all prescriptions, OTC, herbals, cannabis, and nutritional supplements).: Yes
[2024-06-25 21:53] LABS: Glucose Point of Care 187 mg/dl (65-105)
[2024-06-25] MEDS: IPRATROPIUM 0.5 MG/ALBUTEROL SULFATE 2.5 MG AMPUL.NEB 3 ML INHALATION (23:02)
[2024-06-25 23:47] LABS: Alveolar/Arterial O2 Gradient 14.2 mmHg; Base Excess ABG 3.2 mEq/l (+/-2.0); HCO3 ABG 30.5 mEq/l (22.0-26.0); Oxygen Content ABG 14.6 %vol (16.0-22.0); Oxygen Saturation ABG 96.1 % (95.0-100.0); Oxyhemoglobin 96.3 % THb (90.0-100.0); PO2 ABG 90.9 mmHg (80.0-100.0); PO2 FiO2 Ratio Arterial Blood 3.64 %; Total Hemoglobin 10.7 g/dL (12.0-18.0); pH ABG 7.313 (7.350-7.450)
[2024-06-25 23:50] LABS: Modified Allen's Test Pass; PCO2 ABG 61.6 mmHg (35.0-45.0); Site Drawn RIGHT RADIAL
[2024-06-25 23:52] LABS: Alanine Aminotransferase 14 U/L (6-50); Albumin Level 3.4 g/dL (3.5-5.1); Alkaline Phosphatase 75 U/L (38-126); Anion Gap 13 mmol/L (4-12); Aspartate Amino Transferase 20 U/L (17-59); Bilirubin,Total 0.7 mg/dL (0.2-1.3); Blood Urea Nitrogen 105 mg/dL (9-20); Calcium 8.4 mg/dL (8.4-10.2); Carbon Dioxide 30 mmol/L (22-30); Chloride 90 mmol/L (98-107); Estimated CRCL calculation 27 ml/min; Estimated Glomerular Filt Rate 29; Glucose 175 mg/dL (65-110); Magnesium 2.2 mg/dL (1.6-2.3); Potassium 4.6 mmol/L (3.4-5.0); Sodium 133 mmol/L (137-145)
[2024-06-25 23:52] LABS: Device NASAL CANNULA; Fractional Inspired Oxygen 28 %
[2024-06-25 23:53] LABS: D Dimer 1.79 ug/mL (<0.48)
[2024-06-26] VITALS (26 sets, daily range): BP systolic 101–112; BP diastolic 41–49; PULSE 60–138; RESP 16–24; TEMP 36.3–36.5; O2SAT 95–100
[2024-06-26] LABS: Basophils Percent Auto 0.5 % (0.2-1.2); Eosinophils Percent Auto 0.7 % (0-4.4); Hemoglobin 9.4 g/dL (14.0-18.0); Immature Granulocyte Absolute 0.09 K/mm3 (0.00-0.031); Immature Granulocyte Percent A 2.2 % (0-0.5); Lymphocytes Absolute Auto 0.27 K/mm3 (0.9-3.2); Lymphocytes Percent Auto 6.7 % (18.3-44.2); Mean Corpuscular HGB Conc 31.3 g/dl (32-36); Mean Corpuscular Hemoglobin 31.3 pg (26-34); Mean Platelet Volume 10.3 fl (7.4-10.4); Monocytes Absolute Auto 0.3 K/mm3 (0.1-0.6); Monocytes Percent Auto 6.7 % (2.6-8.5); Neutrophils Absolute Auto 3.4 K/mm3 (1.3-6.7); Neutrophils Percent Auto 83.2 % (45.5-73.1); Platelet Count Result 118 k/mm3 (150-375); Red Cell Distribution Width 15.1 % (11.5-14.5); White Blood Count 4.1 K/mm3 (4.5-10.0)
[2024-06-26 00:20] LABS: NT Pro B Type Natriuretic Pept > 30000 pg/mL (19.9-100)
[2024-06-26] MEDS: ATORVASTATIN 40 MG TABLET PO ×2 (00:34→20:11)
[2024-06-26] MEDS: TAMSULOSIN HCL 0.4 MG CAPSULE PO ×2 (00:34→20:11)
[2024-06-26] MEDS: IPRATROPIUM 0.5 MG/ALBUTEROL SULFATE 2.5 MG AMPUL.NEB 3 ML INHALATION ×4 (02:24→20:22)
--- NOTE | 2024-06-26 04:45 | ADMGEN ---
This patient, Jessica Wallace, was admitted to IMU Room 207-01 on 06/25/25 at 2130. Patient/family oriented to hospital policies and general routines including ID bracelet, bed and alarms, visiting hours, pain management, procedures, bathroom and other care routines, personal items, smoking policy, room service/diet, and visiting hours. Information on how to activate the Rapid Response Team has been discussed. Patient/Family are encouraged to report perceived risks to care and to ask questions if they do not understand what they are told or what they should do.
[2024-06-26 06:03] LABS: Hemoglobin A1C 9.2 % (<5.7)
[2024-06-26 07:48] LABS: Glucose Point of Care 150 mg/dl (65-105)
--- NOTE | 2024-06-26 08:48 | PCSTNOTE ---
Please refer to the Bedside Swallow Evaluation in the EMR. Please note, silent aspiration cannot be ruled out at bedside. The above pleasant and cooperative pt was seen for a swallow evaluation at the bedside. The pt was positioned upright in the bed for the evaluation. He is alert & oriented and able to follow commands. Pt denies dysphagia. Oral mucosa is normal; pt has full upper and lower dentures which are of good fit. Oral peripheral exam revealed lingual and labial structures to be normal. He was able to dry swallow on command and exhibited a strong cough and clear vocal quality. He was tested with pudding, applesauce, cracker and thin liquids. The oral stages appeared WNL. No oral leakage or pocketing was noted. During the pharyngeal stage, the swallow reflex appeared prompt & laryngeal elevation was adequate. No overt s/s of aspiration were exhibited; however, silent aspiration cannot be ruled out at bedside. General impression is normal swallow ability. Recommendation: Continue current diet. Thank you for this referral.
--- NOTE | 2024-06-26 09:19 | P.PNIM_ITS ---
Progress Note: A&P Assessment and Plan (1) Acute ischemic stroke: Code(s): I63.9 - Cerebral infarction, unspecified Status: Acute Assessment and Plan: * Head CT shown hypodensity in the left posterior temporal/occipital area suggestive of acute/subacute infarct with multiple hyperdensities which may be hemorrhagic areas * Head/neck CTA showed severe calcification of the carotid arteries 60% on the right side, bilateral pleural effusion with adjacent atelectasis versus pneumonia * Awaiting transfer to [facility] * MRI of the brain and brainstem ordered however patient has pacemaker (2) Acute and chronic respiratory failure with hypercapnia: Code(s): J96.22 - Acute and chronic respiratory failure with hypercapnia Status: Acute Assessment and Plan: * ABG showing a pH of 7.313, pCO2 61.6, bicarb 30.5, PO2 90.9 * Continue BiPAP (3) CHF (congestive heart failure): Code(s): I50.9 - Heart failure, unspecified Status: Chronic Assessment and Plan: * ProBNP greater than 30,000, patient has 4+ pitting edema to bilateral lower extremities * Troponin 0.078> 0.078> 0.070--likely demand ischemia * Bumex 1 mg IV push given overnight * Last echocardiogram reviewed from 06/10/2024 which shown mildly reduced LV systolic function with an estimated EF of 40-45%, right ventricular systolic function is reduced, left and right atrial chamber severely enlarged, bioprosthetic valve appears to be well seated, pulmonary hypertension with an estimated pulmonary arterial systolic pressure of 66 mmHg * Initial chest x-ray shown bilateral basal atelectasis versus pneumonia with bilateral pleural effusion, cardiomegaly with cardiac decompensation and pulmonary edema * Will repeat chest x-ray this morning * Continue metoprolol * Continue IV diuresis with Lasix 40 mg BID (4) Elevated d-dimer: Code(s): R79.89 - Other specified abnormal findings of blood chemistry Status: Acute Assessment and Plan: * D-dimer 1.9 * Will get V/Q scan today to rule out PE * Venous Doppler to rule out DVT (5) DM2 (diabetes mellitus, type 2): Code(s): E11.9 - Type 2 diabetes mellitus without complications Status: Chronic Assessment and Plan: * Blood sugars ranging 175-230 * Hgb A1C 5.4 on 09/03/2020 * Will recheck hemoglobin A1c * Accu checks AC/HS * High-dose SSI ordered * hypoglycemic protocol in place * Diabetic diet and 2 g sodium diet ordered (6) COPD (chronic obstructive pulmonary disease): Code(s): J44.9 - Chronic obstructive pulmonary disease, unspecified Status: Chronic Assessment and Plan: * DuoNebs ordered q.6 hour (7) Hypertension: Code(s): I10 - Essential (primary) hypertension Status: Chronic Assessment and Plan: * Blood pressure ranging 102/54 to 118/72 * Continue isosorbide (8) CAD (coronary artery disease): Code(s): I25.10 - Atherosclerotic heart disease of [place] coronary artery without angina pectoris Status: Chronic Assessment and Plan: * Status post CABG x5 vessel * Continue atorvastatin (9) Pacemaker: Code(s): Z95.0 - Presence of cardiac pacemaker Status: Acute Assessment and Plan: * Ventricular pacemaker in place * EKG showed electronic ventricular pacemaker with a rate of 65, QTC 517 (10) BPH (benign prostatic hyperplasia): Code(s): N40.0 - Benign prostatic hyperplasia without lower urinary tract symptoms Status: Chronic Assessment and Plan: * Continue finasteride and tamsulosin (11) Chronic anemia: Code(s): D64.9 - Anemia, unspecified Status: Chronic Assessment and Plan: * Hemoglobin 9.4 * Appears to be chronic * Continue ferrous sulfate (12) Sleep apnea: Code(s): G47.30 - Sleep apnea, unspecified Status: Chronic Assessment and Plan: * Patient currently requiring BiPAP due to hypercapnia Subjective Date/time seen: 06/26/24 09:19 Interval history: 84-year-old male with a significant past medical history who presented to the hospital for evaluation of altered mental status. Patient was found by staff members at [facility] facility to be somnolent and minimally arousable to verbal or painful stimuli and EMS was called to the scene. Upon EMS arrival patient was able to be stimulated by EMS en route, woke up, and was then alert and oriented x4. Workup in the hospital included a head CT which showed hyperdensity in the left posterior temporal/occipital area which is suggestive of acute/subacute infarct with multiple hyperdensities which may be hemorrhagic areas. Chest x-ray showed bilateral basal atelectasis versus pneumonia with bilateral pleural effusion, cardiomegaly with cardiac decompensation and pulmonary edema. Head/neck CTA shown a normal CTA of the head, CTA of the neck shows severe calcification of the carotid arteries, bilateral pleural effusion with adjacent atelectasis versus pneumonia. Initial labs showed a white blood cell count of 5.0, hemoglobin 9.5, platelet count 131, sodium 129, chloride 87, bicarb 36, creatinine 2.49, EGFR 25, blood sugars ranging 215-311, troponin 0.078> 0.078, TSH was normal at 3.770. VBG showed a pH of 7.276, pCO2 of 71.4, PO2 29.2, bicarb 32.5 on room air. UA was obtained which showed cloudy urine appearance, 1+ glucose, trace leukocytes, 6-10 urine WBC, 11-20 urine cast. Urine culture was obtained and shown Gram-negative bacilli isolated on preliminary read. EKG showed electronic ventricular pacemaker with a rate of 65, QTC 517. Was placed on BiPAP for a hypercapnia while in the ED. he was also given aspirin 300 mg rectal and Rocephin while in the ED. patient currently has an electronic pacemaker and is unable to get MRI at our facility and he is currently pending transfer to [facility]. Patient denies any UTI symptoms. Urine culture shows Pseudomonas aeruginosa. Asymptomatic bacteriuria does not warrant treatment Review of Systems Review of Systems: All systems reviewed & are unremarkable except as noted in HPI and below Exam Narrative: General: In no acute distress, well nourished Head: atraumatic, no encephalopathy Eyes: PERRLA, sclera clear ENT: moist mucous membranes, nasal passages clear Neck: supple, no JVD, no adenopathy, trachea midline Cardiac: Normal S1 and S2. No murmur, gallops or friction rubs, peripheral pulses intact. Respiratory:Inspiratory and expiratory wheezing, no other adventitious lung sounds, currently on nasal cannula with use of accessory muscles and acute respiratory distress. Gastrointestinal: soft, non-distended, non-tender, normoactive bowel sounds. : voiding without difficulty. 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 No wounds or lesions. Neuro: Alert and oriented x4, cranial nerves intact, no neuro deficits. Psych: normal mood, normal affect, interactive Objective Data Vital Signs Vital Signs: Vital Signs - 24 hr 06/25/24 09:46 06/25/24 10:31 06/25/24 11:16 Temperature Pulse Rate 84 66 60 Respiratory Rate 18 17 16 Blood Pressure 100/61 110/57 L 115/57 L Pulse Oximetry 97 98 98 Oxygen Delivery Oxygen Flow Rate Fraction of Inspired Oxygen 06/25/24 11:31 06/25/24 12:16 06/25/24 12:46 Temperature Pulse Rate 79 60 66 Respiratory Rate 17 20 18 Blood Pressure 104/61 108/55 L 112/61 Pulse Oximetry 98 98 100 Oxygen Delivery Oxygen Flow Rate Fraction of Inspired Oxygen 06/25/24 13:01 06/25/24 13:16 06/25/24 14:01 Temperature Pulse Rate 68 64 66 Respiratory Rate 19 14 18 Blood Pressure 110/61 110/83 114/55 L Pulse Oximetry 100 97 100 Oxygen Delivery Oxygen Flow Rate Fraction of Inspired Oxygen 06/25/24 14:31 06/25/24 14:46 06/25/24 15:16 Temperature Pulse Rate 67 60 65 Respiratory Rate 17 19 16 Blood Pressure 105/57 L 104/55 L 98/71 L Pulse Oximetry 100 100 100 Oxygen Delivery Oxygen Flow Rate Fraction of Inspired Oxygen 06/25/24 15:31 06/25/24 16:00 06/25/24 16:31 Temperature Pulse Rate 71 61 64 Respiratory Rate 19 17 18 Blood Pressure 109/51 L 107/55 L 105/72 Pulse Oximetry 100 100 100 Oxygen Delivery Oxygen Flow Rate Fraction of Inspired Oxygen 06/25/24 16:46 06/25/24 17:08 06/25/24 17:16 Temperature Pulse Rate 68 63 65 Respiratory Rate 20 28 H 22 H Blood Pressure 107/51 L 113/76 Pulse Oximetry 100 100 100 Oxygen Delivery Oxygen Flow Rate Fraction of Inspired Oxygen 06/25/24 17:18 06/25/24 17:30 06/25/24 17:31 Temperature Pulse Rate 62 60 97 Respiratory Rate 18 17 20 Blood Pressure 108/52 L Pulse Oximetry 100 100 100 Oxygen Delivery Oxygen Flow Rate Fraction of Inspired Oxygen 06/25/24 18:51 06/25/24 21:21 06/25/24 21:30 Temperature 97.7 F Pulse Rate 68 60 62 Respiratory Rate 23 H 14 20 Blood Pressure 102/54 L 118/72 Pulse Oximetry 100 100 99 Oxygen Delivery Oxygen Flow Rate Fraction of Inspired Oxygen 06/25/24 22:00 06/25/24 23:02 06/25/24 23:12 Temperature Pulse Rate 62 62 62 Respiratory Rate 24 H 21 H Blood Pressure Pulse Oximetry Oxygen Delivery Oxygen Flow Rate Fraction of Inspired Oxygen 06/25/24 23:50 06/26/24 00:00 06/26/24 00:00 Temperature Pulse Rate 62 60 62 Respiratory Rate 20 21 H Blood Pressure Pulse Oximetry 93 99 Oxygen Delivery BiPAP BiPAP Oxygen Flow Rate Fraction of Inspired Oxygen 35 06/26/24 00:00 06/26/24 02:20 06/26/24 02:24 Temperature 97.6 F Pulse Rate 60 63 62 Respiratory Rate 21 H 20 20 Blood Pressure 111/49 L Pulse Oximetry 99 100 Oxygen Delivery BiPAP Oxygen Flow Rate Fraction of Inspired Oxygen 06/26/24 02:34 06/26/24 02:34 06/26/24 04:00 Temperature 97.7 F Pulse Rate 62 63 Respiratory Rate 20 19 Blood Pressure 102/41 L Pulse Oximetry 95 97 Oxygen Delivery BiPAP Oxygen Flow Rate Fraction of Inspired Oxygen 06/26/24 04:00 06/26/24 04:00 06/26/24 04:38 Temperature Pulse Rate 63 63 75 Respiratory Rate 19 20 Blood Pressure Pulse Oximetry 97 97 Oxygen Delivery BiPAP BiPAP Oxygen Flow Rate Fraction of Inspired Oxygen 06/26/24 06:00 06/26/24 08:00 06/26/24 08:49 Temperature 97.7 F Pulse Rate 64 138 H Respiratory Rate 22 H Blood Pressure 112/46 L Pulse Oximetry 100 99 Oxygen Delivery Nasal Cannula Oxygen Flow Rate 3 Fraction of Inspired Oxygen 06/26/24 08:49 06/26/24 09:00 06/26/24 09:00 Temperature Pulse Rate 60 63 Respiratory Rate 22 H 20 Blood Pressure Pulse Oximetry 100 Oxygen Delivery Nasal Cannula Oxygen Flow Rate 2 Fraction of Inspired Oxygen Intake/Output Intake/Output: Intake & Output 06/23/24 06/24/24 06/25/24 06/26/24 23:59 23:59 23:59 23:59 Intake Total 1000 50 Output Total 50 Balance 1000 50 -50 Meds/Results Medications: Active Medications Generic Name Dose Route Start Last Admin Trade Name Freq PRN Reason Stop Dose Admin Acetaminophen 650 mg 06/25/24 23:05 Acetaminophen 325 Mg Tablet PO Q4H PRN Mild Pain (1-3) or Fever Albuterol/Ipratropium 3 ml 06/26/24 02:00 06/26/24 08:46 Ipratropium 0.5 Mg/Albuterol Sulfate 2.5 Mg Ampul.Neb 3 Ml INHALATION 3 ml Q6HRT WARD Administration Atorvastatin Calcium 40 mg 06/25/24 23:10 06/26/24 00:34 Atorvastatin 40 Mg Tablet PO 40 mg HS WARD Administration Cyanocobalamin 1,000 mcg 06/26/24 09:00 Cyanocobalamin 1,000 Mcg Tablet PO DAILY [facility] Dextrose 12.5 gm 06/26/24 04:23 Dextrose 50% 25 Gm/50 Ml Syringe IV PUSH PRN PRN Hypoglycemia Protocol Ferrous Sulfate 325 mg 06/26/24 09:00 Ferrous Sulfate [address] PO BID [facility] Finasteride 5 mg 06/26/24 09:00 Finasteride 5 Mg Tablet PO DAILY [facility] Folic Acid 1 mg 06/26/24 09:00 Folic Acid 1 Mg Tablet PO DAILY [facility] Furosemide 40 mg 06/26/24 09:00 Furosemide Inj 40 Mg/4 Ml Vial IV PUSH BID [facility] Glucagon 1 mg 06/26/24 04:23 Glucagon For Inj 1 Mg Vial IM PRN PRN Hypoglycemia Protocol Glucose 15 gm 06/26/24 04:23 Glucose Oral Gel 15 Gm Of Glucse In 37.5 Gm Tube PO PRN PRN Hypoglycemia Protocol Dextrose 1,000 mls @ 100 mls/hr 06/26/24 04:23 Dextrose 5% 1,000 Ml IVPB PRN PRN Hypoglycemia Protocol Insulin Aspart 4 - 8 units 06/26/24 08:00 Insulin Aspart (*Bkc) 100 Units/Ml SUB-Q TIDWM [facility] Protocol Insulin Aspart 2 - 4 units 06/26/24 21:00 Insulin Aspart (*Bkc) 100 Units/Ml SUB-Q HS [facility] Protocol Isosorbide Mononitrate 15 mg 06/26/24 09:00 Isosorbide Mononitrate 10 Mg Tablet PO BID@0900,1600 [facility] Metoprolol Succinate 25 mg 06/26/24 09:00 Metoprolol Succinate Ext Rel 25 Mg Tabcr PO QAM [facility] Ondansetron HCl 4 mg 06/25/24 23:05 Ondansetron Inj 4 Mg/2 Ml Vial IV PUSH Q6H PRN Nausea And Vomiting Pantoprazole Sodium 40 mg 06/26/24 09:00 Pantoprazole 40 Mg Tablet PO QAM [facility] Pregabalin 25 mg 06/26/24 21:00 Pregabalin (*Crx) 25 Mg Capsule PO HS W[facility] Tamsulosin HCl 0.4 mg 06/25/24 23:10 06/26/24 00:34 Tamsulosin Hcl 0.4 Mg Capsule PO 0.4 mg QHS [facility] Administration Vitamin D 1,000 units 06/26/24 09:00 Cholecalciferol 1,000 Units Tablet PO DAILY [facility] Radiology Results: ITS Impressions Head CT 06/24/24 18:31 IMPRESSION: Hypodensity in the left posterior temporal/occipital area which is suggestive of acute/subacute infarct with multiple hyperdensities which may be hemorrhagic areas. Calcification is less likely. MRI evaluation is advised. Physician: Manav Duarte MD Was notified with the result of the patient at time 6:45 PM on June 24, 2024. Head/Neck CTA 06/24/24 19:43 IMPRESSION: 1. Nonvisualization of the distal left posterior cerebral artery. Otherwise normal CTA of the head. 2. CTA of the neck. Shows severe calcification of the carotid arteries. Percent stenosis per NASCET criteria is 60% on the right side. 3. Bilateral pleural effusion with adjacent atelectasis versus pneumonia. Chest X-Ray 06/26/24 05:51 IMPRESSION: 1. Stable airspace opacities in the mid and lower lung zones, consistent with atelectasis versus pneumonia. 2. Small pleural effusions. 3. Cardiomegaly. Labs Labs: Laboratory Results - last 24 hr 06/25/24 06/25/24 06/25/24 13:37 21:51 23:27 WBC RBC Hgb Hct MCV MCH MCHC RDW Plt Count MPV Immature Gran % (Auto) Neut % (Auto) Lymph % (Auto) [place] % (Auto) Eos % (Auto) Baso % (Auto) Lymph # (Auto) [place] # (Auto) Eos # (Auto) Baso # (Auto) Abs Immat Gran (auto) Absolute Neuts (auto) Absolute Nucleated RBC Nucleated RBC % D-Dimer Puncture Site Right radial ABG pH 7.313 L ABG pCO2 61.6 H* ABG pO2 90.9 ABG PO2/FiO2 Ratio 3.64 ABG HCO3 30.5 H ABG O2 Saturation 96.1 ABG O2 Content 14.6 L ABG Base Excess 3.2 A-a Gradient 14.2 Oxyhemoglobin 96.3 Total Hemoglobin 10.7 L O2 Delivery Device Nasal cannula O2 Liters/Min 2.0 FiO2 28 Sodium Potassium Chloride Carbon Dioxide Anion Gap BUN Creatinine Estim Creat Clear Calc Estimated GFR Glucose POC Capillary Glucose 215 H 187 H Hemoglobin A1c Calcium Magnesium Total Bilirubin AST ALT Alkaline Phosphatase Troponin I NT-Pro-B Natriuret Pep Total Protein Albumin 06/25/24 06/25/24 06/26/24 23:29 23:33 07:25 WBC 4.1 L RBC 3.00 L Hgb 9.4 L Hct 30.0 L MCV 100.0 MCH 31.3 MCHC 31.3 L RDW 15.1 H Plt Count 118 L MPV 10.3 Immature Gran % (Auto) 2.2 H Neut % (Auto) 83.2 H Lymph % (Auto) 6.7 L [place] % (Auto) 6.7 Eos % (Auto) 0.7 Baso % (Auto) 0.5 Lymph # (Auto) 0.27 L [place] # (Auto) 0.3 Eos # (Auto) 0.0 Baso # (Auto) 0.0 Abs Immat Gran (auto) 0.09 H Absolute Neuts (auto) 3.4 Absolute Nucleated RBC 0.000 Nucleated RBC % 0.0 D-Dimer 1.79 H Puncture Site ABG pH ABG pCO2 ABG pO2 ABG PO2/FiO2 Ratio ABG HCO3 ABG O2 Saturation ABG O2 Content ABG Base Excess A-a Gradient Oxyhemoglobin Total Hemoglobin O2 Delivery Device O2 Liters/Min FiO2 Sodium 133 L Potassium 4.6 Chloride 90 L Carbon Dioxide 30 Anion Gap 13 H BUN 105 H Creatinine 2.16 H Estim Creat Clear Calc 27 Estimated GFR 29 L Glucose 175 H POC Capillary Glucose 150 H Hemoglobin A1c 9.2 H Calcium 8.4 Magnesium 2.2 Total Bilirubin 0.7 AST 20 ALT 14 Alkaline Phosphatase 75 Troponin I 0.070 H* NT-Pro-B Natriuret Pep > 72089 H Total Protein 6.0 L Albumin 3.4 L Quality VTE Prophylaxis VTE prophylaxis: mechanical ordered Hospitalist MIPS Advance Care Plan I have confirmed that the patient's Advanced Care Plan is present, code status is documented, or surrogate decision maker is listed in patient medical record.: Yes Medication Reconciliation I have utilized all available resources to obtain, update and review the patients current medications (includes all prescriptions, OTC, herbals, cannabis, and nutritional supplements).: Yes
[2024-06-26] MEDS: METOPROLOL SUCCINATE EXT REL 25 MG TABCR PO (09:49)
[2024-06-26] MEDS: CYANOCOBALAMIN 1,000 MCG TABLET 1000 MCG PO (09:49)
[2024-06-26] MEDS: FERROUS SULFATE 325 MG TABLET DR PO ×2 (09:49→17:30)
[2024-06-26] MEDS: FINASTERIDE 5 MG TABLET PO (09:50)
[2024-06-26] MEDS: FUROSEMIDE INJ 40 MG/4 ML VIAL IV PUSH ×2 (09:50→17:29)
[2024-06-26] MEDS: CHOLECALCIFEROL 1,000 UNITS TABLET 1000 UNITS PO (09:50)
[2024-06-26] MEDS: FOLIC ACID 1 MG TABLET PO (09:50)
[2024-06-26] MEDS: PANTOPRAZOLE 40 MG TABLET PO (09:51)
[2024-06-26] MEDS: ISOSORBIDE MONONITRATE 10 MG TABLET 15 MG PO ×2 (09:52→17:30)
--- NOTE | 2024-06-26 11:12 | P.CDI_ITS ---
CDI Query Clarification Request Please specify type and acuity of heart failure if known. * Acute * Chronic * Acute on Chronic * Unknown * Systolic * Diastolic * Combined Systolic and Diastolic * Unknown The medical chart reflects the following: (3) CHF (congestive heart failure): Code(s): I50.9 - Heart failure, unspecified Status: Chronic Assessment and Plan: * ProBNP greater than 30,000, patient has 4+ pitting edema to bilateral lower extremities * Troponin 0.078> 0.078> 0.070--likely demand ischemia * Bumex 1 mg IV push given overnight * Last echocardiogram reviewed from 06/10/2024 which shown mildly reduced LV systolic function with an estimated EF of 40-45%, right ventricular systolic function is reduced, left and right atrial chamber severely enlarged, bioprosthetic valve appears to be well seated, pulmonary hypertension with an estimated pulmonary arterial systolic pressure of 66 mmHg * Initial chest x-ray shown bilateral basal atelectasis versus pneumonia with bilateral pleural effusion, cardiomegaly with cardiac decompensation and pulmonary edema * Will repeat chest x-ray this morning * Continue metoprolol * Continue IV diuresis with Lasix 40 mg BID Repeat CXR 06/26: IMPRESSION: 1. Stable airspace opacities in the mid and lower lung zones, consistent with atelectasis versus pneumonia. 2. Small pleural effusions. 3. Cardiomegaly. <Shari Motley RN - Last Filed: 06/26/24 11:14> Clarified Diagnosis Clarified Diagnosis: Systolic <Chandan Vallejo MD - Last Filed: 06/26/24 17:07>
--- NOTE | 2024-06-26 11:12 | WPDCDIQUERY2 ---
CDI Query Clarification Request Please specify type and acuity of heart failure if known. Acute Chronic Acute on Chronic Unknown Systolic Diastolic Combined Systolic and Diastolic Unknown The medical chart reflects the following: (3) CHF (congestive heart failure): Code(s): I50.9 - Heart failure, unspecified Status: Chronic Assessment and Plan: ProBNP greater than 30,000, patient has 4+ pitting edema to bilateral lower extremities Troponin 0.078> 0.078> 0.070--likely demand ischemia Bumex 1 mg IV push given overnight Last echocardiogram reviewed from 06/10/2024 which shown mildly reduced LV systolic function with an estimated EF of 40-45%, right ventricular systolic function is reduced, left and right atrial chamber severely enlarged, bioprosthetic valve appears to be well seated, pulmonary hypertension with an estimated pulmonary arterial systolic pressure of 66 mmHg Initial chest x-ray shown bilateral basal atelectasis versus pneumonia with bilateral pleural effusion, cardiomegaly with cardiac decompensation and pulmonary edema Will repeat chest x-ray this morning Continue metoprolol Continue IV diuresis with Lasix 40 mg BID Repeat CXR 06/26: IMPRESSION: 1. Stable airspace opacities in the mid and lower lung zones, consistent with atelectasis versus pneumonia. 2. Small pleural effusions. 3. Cardiomegaly. <Shari Motley RN - Last Filed: 06/26/24 11:14> Clarified Diagnosis Clarified Diagnosis: Systolic <Chandan Vallejo MD - Last Filed: 06/26/24 17:07>
[2024-06-26 11:25] LABS: Glucose Point of Care 184 mg/dl (65-105)
--- NOTE | 2024-06-26 14:08 | PC.NURSE ---
On 06/26/24, the student, [Zulma Duong], provided care and completed [facility] on this [facility]. I have reviewed the student's documentation and agree with the findings.
[2024-06-26 14:31] LABS: Basophils Percent Auto 0.2 % (0.2-1.2); Eosinophils Percent Auto 0.7 % (0-4.4); Hematocrit 28.9 % (42.0-52.0); Immature Granulocyte Absolute 0.03 K/mm3 (0.00-0.031); Immature Granulocyte Percent A 0.7 % (0-0.5); Lymphocytes Percent Auto 6.9 % (18.3-44.2); Mean Corpuscular HGB Conc 31.1 g/dl (32-36); Mean Corpuscular Hemoglobin 30.9 pg (26-34); Mean Corpuscular Volume 99.3 fl (80-100); Mean Platelet Volume 9.8 fl (7.4-10.4); Monocytes Absolute Auto 0.3 K/mm3 (0.1-0.6); Monocytes Percent Auto 6.3 % (2.6-8.5); Neutrophils Absolute Auto 3.7 K/mm3 (1.3-6.7); Neutrophils Percent Auto 85.2 % (45.5-73.1); Platelet Count Result 116 k/mm3 (150-375); Red Blood Count 2.91 M/mm3 (4.6-6.20); Red Cell Distribution Width 15.1 % (11.5-14.5); White Blood Count 4.3 K/mm3 (4.5-10.0)
[2024-06-26 14:58] LABS: Alanine Aminotransferase 14 U/L (6-50); Albumin Level 3.2 g/dL (3.5-5.1); Alkaline Phosphatase 68 U/L (38-126); Anion Gap 9 mmol/L (4-12); Aspartate Amino Transferase 17 U/L (17-59); Bilirubin,Total 0.6 mg/dL (0.2-1.3); Blood Urea Nitrogen 103 mg/dL (9-20); Calcium 8.3 mg/dL (8.4-10.2); Carbon Dioxide 34 mmol/L (22-30); Chloride 90 mmol/L (98-107); Estimated CRCL calculation 27 ml/min; Estimated Glomerular Filt Rate 30; Glucose 224 mg/dL (65-110); Potassium 4.6 mmol/L (3.4-5.0); Sodium 133 mmol/L (137-145)
[2024-06-26 17:17] LABS: Glucose Point of Care 259 mg/dl (65-105)
[2024-06-26] MEDS: INSULIN ASPART (*BKC) 100 UNITS/ML SUB-Q ×2 (17:30→20:13)
[2024-06-26 19:56] LABS: Glucose Point of Care 284 mg/dl (65-105)
[2024-06-26] MEDS: PREGABALIN (*CRX) 25 MG CAPSULE PO (20:11)
[2024-06-27] VITALS (25 sets, daily range): BP systolic 98–113; BP diastolic 41–60; PULSE 60–65; RESP 12–24; TEMP 36.4–36.6; O2SAT 97–100
[2024-06-27] MEDS: IPRATROPIUM 0.5 MG/ALBUTEROL SULFATE 2.5 MG AMPUL.NEB 3 ML INHALATION ×4 (01:49→19:51)
[2024-06-27 04:45] LABS: Basophils Percent Auto 0.2 % (0.2-1.2); Eosinophils Percent Auto 0.5 % (0-4.4); Hemoglobin 8.4 g/dL (14.0-18.0); Immature Granulocyte Absolute 0.02 K/mm3 (0.00-0.031); Immature Granulocyte Percent A 0.5 % (0-0.5); Immature Platelet Fraction Pct 3.9 % (0.9-11.2); Lymphocytes Absolute Auto 0.35 K/mm3 (0.9-3.2); Lymphocytes Percent Auto 8.2 % (18.3-44.2); Mean Corpuscular HGB Conc 31.1 g/dl (32-36); Mean Corpuscular Hemoglobin 30.8 pg (26-34); Mean Corpuscular Volume 98.9 fl (80-100); Mean Platelet Volume 10.3 fl (7.4-10.4); Monocytes Absolute Auto 0.3 K/mm3 (0.1-0.6); Neutrophils Absolute Auto 3.6 K/mm3 (1.3-6.7); Neutrophils Percent Auto 83.6 % (45.5-73.1); Platelet Count Result 113 k/mm3 (150-375); Red Blood Count 2.73 M/mm3 (4.6-6.20); Red Cell Distribution Width 15.1 % (11.5-14.5); White Blood Count 4.3 K/mm3 (4.5-10.0)
[2024-06-27 04:57] LABS: Alanine Aminotransferase 12 U/L (6-50); Albumin Level 3.1 g/dL (3.5-5.1); Alkaline Phosphatase 69 U/L (38-126); Anion Gap 11 mmol/L (4-12); Aspartate Amino Transferase 17 U/L (17-59); Bilirubin,Total 0.5 mg/dL (0.2-1.3); Blood Urea Nitrogen 112 mg/dL (9-20); Calcium 8.2 mg/dL (8.4-10.2); Carbon Dioxide 33 mmol/L (22-30); Chloride 89 mmol/L (98-107); Estimated CRCL calculation 26 ml/min; Estimated Glomerular Filt Rate 29; Glucose 220 mg/dL (65-110); Magnesium 2.2 mg/dL (1.6-2.3); Potassium 4.7 mmol/L (3.4-5.0); Sodium 133 mmol/L (137-145)
[2024-06-27 07:46] LABS: Glucose Point of Care 211 mg/dl (65-105)
[2024-06-27] MEDS: CYANOCOBALAMIN 1,000 MCG TABLET 1000 MCG PO (08:58)
[2024-06-27] MEDS: FOLIC ACID 1 MG TABLET PO (08:58)
[2024-06-27] MEDS: FERROUS SULFATE 325 MG TABLET DR PO ×2 (08:58→17:32)
[2024-06-27] MEDS: CHOLECALCIFEROL 1,000 UNITS TABLET 1000 UNITS PO (08:58)
[2024-06-27] MEDS: ISOSORBIDE MONONITRATE 10 MG TABLET 15 MG PO ×2 (08:58→17:32)
[2024-06-27] MEDS: FINASTERIDE 5 MG TABLET PO (08:58)
[2024-06-27] MEDS: PANTOPRAZOLE 40 MG TABLET PO (08:58)
[2024-06-27] MEDS: METOPROLOL SUCCINATE EXT REL 25 MG TABCR PO (08:58)
[2024-06-27] MEDS: INSULIN ASPART (*BKC) 100 UNITS/ML SUB-Q ×4 (08:59→20:47)
[2024-06-27 11:46] LABS: Glucose Point of Care 291 mg/dl (65-105)
--- NOTE | 2024-06-27 16:09 | P.PNIM_ITS ---
Progress Note: A&P Assessment and Plan (1) Acute ischemic stroke: Code(s): I63.9 - Cerebral infarction, unspecified Status: Acute Assessment and Plan: * Head CT shown hypodensity in the left posterior temporal/occipital area suggestive of acute/subacute infarct with multiple hyperdensities which may be hemorrhagic areas * Head/neck CTA showed severe calcification of the carotid arteries 60% on the right side, bilateral pleural effusion with adjacent atelectasis versus pneumonia * Awaiting transfer to [facility] * MRI of the brain and brainstem ordered however patient has pacemaker (2) Acute and chronic respiratory failure with hypercapnia: Code(s): J96.22 - Acute and chronic respiratory failure with hypercapnia Status: Acute Assessment and Plan: * ABG showing a pH of 7.313, pCO2 61.6, bicarb 30.5, PO2 90.9 * Continue BiPAP (3) CHF (congestive heart failure): Code(s): I50.9 - Heart failure, unspecified Status: Chronic Assessment and Plan: * ProBNP greater than 30,000, patient has 4+ pitting edema to bilateral lower extremities * Troponin 0.078> 0.078> 0.070--likely demand ischemia * Bumex 1 mg IV push given overnight * Last echocardiogram reviewed from 06/10/2024 which shown mildly reduced LV systolic function with an estimated EF of 40-45%, right ventricular systolic function is reduced, left and right atrial chamber severely enlarged, bioprosthetic valve appears to be well seated, pulmonary hypertension with an estimated pulmonary arterial systolic pressure of 66 mmHg * Initial chest x-ray shown bilateral basal atelectasis versus pneumonia with bilateral pleural effusion, cardiomegaly with cardiac decompensation and pulmonary edema * Will repeat chest x-ray this morning * Continue metoprolol * Continue IV diuresis with Lasix 40 mg BID (4) Elevated d-dimer: Code(s): R79.89 - Other specified abnormal findings of blood chemistry Status: Acute Assessment and Plan: * D-dimer 1.9 * Will get V/Q scan today to rule out PE * Venous Doppler to rule out DVT (5) DM2 (diabetes mellitus, type 2): Code(s): E11.9 - Type 2 diabetes mellitus without complications Status: Chronic Assessment and Plan: * Blood sugars ranging 175-230 * Hgb A1C 5.4 on 09/03/2020 * Will recheck hemoglobin A1c * Accu checks AC/HS * High-dose SSI ordered * hypoglycemic protocol in place * Diabetic diet and 2 g sodium diet ordered (6) COPD (chronic obstructive pulmonary disease): Code(s): J44.9 - Chronic obstructive pulmonary disease, unspecified Status: Chronic Assessment and Plan: * DuoNebs ordered q.6 hour (7) Hypertension: Code(s): I10 - Essential (primary) hypertension Status: Chronic Assessment and Plan: * Blood pressure ranging 102/54 to 118/72 * Continue isosorbide (8) CAD (coronary artery disease): Code(s): I25.10 - Atherosclerotic heart disease of [place] coronary artery without angina pectoris Status: Chronic Assessment and Plan: * Status post CABG x5 vessel * Continue atorvastatin (9) Pacemaker: Code(s): Z95.0 - Presence of cardiac pacemaker Status: Acute Assessment and Plan: * Ventricular pacemaker in place * EKG showed electronic ventricular pacemaker with a rate of 65, QTC 517 (10) BPH (benign prostatic hyperplasia): Code(s): N40.0 - Benign prostatic hyperplasia without lower urinary tract symptoms Status: Chronic Assessment and Plan: * Continue finasteride and tamsulosin (11) Chronic anemia: Code(s): D64.9 - Anemia, unspecified Status: Chronic Assessment and Plan: * Hemoglobin 9.4 * Appears to be chronic * Continue ferrous sulfate (12) Sleep apnea: Code(s): G47.30 - Sleep apnea, unspecified Status: Chronic Assessment and Plan: * Patient currently requiring BiPAP due to hypercapnia Subjective Date/time seen: 06/27/24 16:09 Interval history: Pending transfer to [place]. Denies any urinary sx. Review of Systems Review of Systems: All systems reviewed & are unremarkable except as noted in HPI and below Exam Narrative: General: In no acute distress, well nourished Head: atraumatic, no encephalopathy Eyes: PERRLA, sclera clear ENT: moist mucous membranes, nasal passages clear Neck: supple, no JVD, no adenopathy, trachea midline Cardiac: Normal S1 and S2. No murmur, gallops or friction rubs, peripheral pulses intact. Respiratory:Inspiratory and expiratory wheezing, no other adventitious lung sounds, currently on nasal cannula with use of accessory muscles and acute respiratory distress. Gastrointestinal: soft, non-distended, non-tender, normoactive bowel sounds. : voiding without difficulty. Extremities:BUE with good hand polo coach 4/5 bilaterally, 4+ pitting edema to bilateral lower extremities Skin: clean, dry, intact. No wounds or lesions. Neuro: Alert and oriented x4, cranial nerves intact, no neuro deficits. Psych: normal mood, normal affect, interactive Objective Data Vital Signs Vital Signs: Vital Signs - 24 hr 06/26/24 18:00 06/26/24 19:58 06/26/24 20:00 Temperature 97.6 F Pulse Rate 60 60 Respiratory Rate 20 Blood Pressure 105/45 L Pulse Oximetry 100 98 Oxygen Delivery Nasal Cannula Oxygen Flow Rate 3 06/26/24 20:00 06/26/24 20:22 06/26/24 20:22 Temperature Pulse Rate 60 60 Respiratory Rate 16 Blood Pressure Pulse Oximetry 96 Oxygen Delivery Nasal Cannula Oxygen Flow Rate 1 06/26/24 20:31 06/26/24 20:33 06/26/24 22:00 Temperature Pulse Rate 60 60 61 Respiratory Rate 16 24 H Blood Pressure Pulse Oximetry 99 Oxygen Delivery BiPAP Oxygen Flow Rate 06/26/24 23:47 06/27/24 00:00 06/27/24 00:00 Temperature 97.7 F Pulse Rate 63 61 Respiratory Rate 24 H 23 H Blood Pressure 102/45 L Pulse Oximetry 97 98 99 Oxygen Delivery BiPAP BiPAP Oxygen Flow Rate 06/27/24 00:00 06/27/24 01:50 06/27/24 01:51 Temperature Pulse Rate 60 61 61 Respiratory Rate 16 22 H Blood Pressure Pulse Oximetry 99 Oxygen Delivery BiPAP Oxygen Flow Rate 06/27/24 02:00 06/27/24 04:00 06/27/24 04:00 Temperature 97.8 F Pulse Rate 60 60 Respiratory Rate 17 Blood Pressure 105/60 Pulse Oximetry 99 99 Oxygen Delivery BiPAP Oxygen Flow Rate 06/27/24 04:00 06/27/24 06:00 06/27/24 07:53 Temperature 97.6 F Pulse Rate 61 60 61 Respiratory Rate 12 Blood Pressure 99/44 L Pulse Oximetry 98 Oxygen Delivery Oxygen Flow Rate 06/27/24 08:00 06/27/24 08:00 06/27/24 08:25 Temperature Pulse Rate 65 Respiratory Rate Blood Pressure Pulse Oximetry 98 97 Oxygen Delivery Nasal Cannula Nasal Cannula Oxygen Flow Rate 3 2 06/27/24 08:25 06/27/24 08:35 06/27/24 08:58 Temperature Pulse Rate 60 60 61 Respiratory Rate 18 18 Blood Pressure Pulse Oximetry Oxygen Delivery Oxygen Flow Rate 06/27/24 10:00 06/27/24 12:00 06/27/24 12:00 Temperature 97.6 F Pulse Rate 60 61 Respiratory Rate 24 H Blood Pressure 98/41 L Pulse Oximetry 100 100 Oxygen Delivery Nasal Cannula Oxygen Flow Rate 3 06/27/24 12:00 06/27/24 14:00 06/27/24 14:20 Temperature Pulse Rate 60 61 62 Respiratory Rate 18 Blood Pressure Pulse Oximetry Oxygen Delivery Oxygen Flow Rate 06/27/24 14:30 Temperature Pulse Rate 60 Respiratory Rate 18 Blood Pressure Pulse Oximetry Oxygen Delivery Oxygen Flow Rate Intake/Output Intake/Output: Intake & Output 06/24/24 06/25/24 06/26/24 06/27/24 23:59 23:59 23:59 23:59 Intake Total 1000 50 1200 1045 Output Total 950 300 Balance 1000 50 250 745 Meds/Results Medications: Active Medications Generic Name Dose Route Start Last Admin Trade Name Freq PRN Reason Stop Dose Admin Acetaminophen 650 mg 06/25/24 23:05 Acetaminophen 325 Mg Tablet PO Q4H PRN Mild Pain (1-3) or Fever Albuterol/Ipratropium 3 ml 06/26/24 02:00 06/27/24 14:19 Ipratropium 0.5 Mg/Albuterol Sulfate 2.5 Mg Ampul.Neb 3 Ml INHALATION 3 ml Q6HRT WARD Administration Atorvastatin Calcium 40 mg 06/25/24 23:10 06/26/24 20:11 Atorvastatin 40 Mg Tablet PO 40 mg HS WARD Administration Cyanocobalamin 1,000 mcg 06/26/24 09:00 06/27/24 08:58 Cyanocobalamin 1,000 Mcg Tablet PO 1,000 mcg DAILY WARD Administration Dextrose 12.5 gm 06/26/24 04:23 Dextrose 50% 25 Gm/50 Ml Syringe IV PUSH PRN PRN Hypoglycemia Protocol Ferrous Sulfate 325 mg 06/26/24 09:00 06/27/24 08:58 Ferrous Sulfate [address] PO 325 mg BID WARD Administration Finasteride 5 mg 06/26/24 09:00 06/27/24 08:58 Finasteride 5 Mg Tablet PO 5 mg DAILY WARD Administration Folic Acid 1 mg 06/26/24 09:00 06/27/24 08:58 Folic Acid 1 Mg Tablet PO 1 mg DAILY WARD Administration Furosemide 40 mg 06/26/24 09:00 06/27/24 13:07 Furosemide Inj 40 Mg/4 Ml Vial IV PUSH Not Given BID WARD Glucagon 1 mg 06/26/24 04:23 Glucagon For Inj 1 Mg Vial IM PRN PRN Hypoglycemia Protocol Glucose 15 gm 06/26/24 04:23 Glucose Oral Gel 15 Gm Of Glucse In 37.5 Gm Tube PO PRN PRN Hypoglycemia Protocol Dextrose 1,000 mls @ 100 mls/hr 06/26/24 04:23 Dextrose 5% 1,000 Ml IVPB PRN PRN Hypoglycemia Protocol Insulin Aspart 4 - 8 units 06/26/24 08:00 06/27/24 12:15 Insulin Aspart (*Bkc) 100 Units/Ml SUB-Q 5 units TIDWM WARD Administration Protocol Insulin Aspart 2 - 4 units 06/26/24 21:00 06/26/24 20:13 Insulin Aspart (*Bkc) 100 Units/Ml SUB-Q 2 units HS WARD Administration Protocol Isosorbide Mononitrate 15 mg 06/26/24 09:00 06/27/24 08:58 Isosorbide Mononitrate 10 Mg Tablet PO 15 mg BID@0900,1600 WARD Administration Metoprolol Succinate 25 mg 06/26/24 09:00 06/27/24 08:58 Metoprolol Succinate Ext Rel 25 Mg Tabcr PO 25 mg QAM WARD Administration Ondansetron HCl 4 mg 06/25/24 23:05 Ondansetron Inj 4 Mg/2 Ml Vial IV PUSH Q6H PRN Nausea And Vomiting Pantoprazole Sodium 40 mg 06/26/24 09:00 06/27/24 08:58 Pantoprazole 40 Mg Tablet PO 40 mg QAM WARD Administration Pregabalin 25 mg 06/26/24 21:00 06/26/24 20:11 Pregabalin (*Crx) 25 Mg Capsule PO 25 mg HS WARD Administration Tamsulosin HCl 0.4 mg 06/25/24 23:10 06/26/24 20:11 Tamsulosin Hcl 0.4 Mg Capsule PO 0.4 mg QHS WARD Administration Vitamin D 1,000 units 06/26/24 09:00 06/27/24 08:58 Cholecalciferol 1,000 Units Tablet PO 1,000 units DAILY WARD Administration Radiology Results: ITS Impressions Head CT 06/24/24 18:31 IMPRESSION: Hypodensity in the left posterior temporal/occipital area which is suggestive of acute/subacute infarct with multiple hyperdensities which may be hemorrhagic areas. Calcification is less likely. MRI evaluation is advised. Physician: Manav Duarte MD Was notified with the result of the patient at time 6:45 PM on June 24, 2024. Head/Neck CTA 06/24/24 19:43 IMPRESSION: 1. Nonvisualization of the distal left posterior cerebral artery. Otherwise normal CTA of the head. 2. CTA of the neck. Shows severe calcification of the carotid arteries. Percent stenosis per NASCET criteria is 60% on the right side. 3. Bilateral pleural effusion with adjacent atelectasis versus pneumonia. Chest X-Ray 06/26/24 05:51 IMPRESSION: 1. Stable airspace opacities in the mid and lower lung zones, consistent with atelectasis versus pneumonia. 2. Small pleural effusions. 3. Cardiomegaly. Venous Doppler Study 06/26/24 12:46 IMPRESSION: 1. No deep venous thrombosis. Pulmonary Perfusion Imaging 06/26/24 13:58 IMPRESSION: 1. No immediate probability for pulmonary embolism. Labs Labs: Laboratory Results - last 24 hr 06/26/24 06/26/24 06/27/24 16:02 19:53 04:26 WBC 4.3 L RBC 2.73 L Hgb 8.4 L Hct 27.0 L MCV 98.9 MCH 30.8 MCHC 31.1 L RDW 15.1 H Plt Count 113 L MPV 10.3 Immature Gran % (Auto) 0.5 Neut % (Auto) 83.6 H Lymph % (Auto) 8.2 L [place] % (Auto) 7.0 Eos % (Auto) 0.5 Baso % (Auto) 0.2 Lymph # (Auto) 0.35 L [place] # (Auto) 0.3 Eos # (Auto) 0.0 Baso # (Auto) 0.0 Abs Immat Gran (auto) 0.02 Absolute Neuts (auto) 3.6 Absolute Nucleated RBC 0.000 Nucleated RBC % 0.0 % Immature Plt Fraction 3.9 Sodium 133 L Potassium 4.7 Chloride 89 L Carbon Dioxide 33 H Anion Gap 11 BUN 112 H Creatinine 2.17 H Estim Creat Clear Calc 26 Estimated GFR 29 L Glucose 220 H POC Capillary Glucose 259 H 284 H Calcium 8.2 L Magnesium 2.2 Total Bilirubin 0.5 AST 17 ALT 12 Alkaline Phosphatase 69 Total Protein 6.0 L Albumin 3.1 L 06/27/24 06/27/24 07:32 11:39 WBC RBC Hgb Hct MCV MCH MCHC RDW Plt Count MPV Immature Gran % (Auto) Neut % (Auto) Lymph % (Auto) [place] % (Auto) Eos % (Auto) Baso % (Auto) Lymph # (Auto) [place] # (Auto) Eos # (Auto) Baso # (Auto) Abs Immat Gran (auto) Absolute Neuts (auto) Absolute Nucleated RBC Nucleated RBC % % Immature Plt Fraction Sodium Potassium Chloride Carbon Dioxide Anion Gap BUN Creatinine Estim Creat Clear Calc Estimated GFR Glucose POC Capillary Glucose 211 H 291 H Calcium Magnesium Total Bilirubin AST ALT Alkaline Phosphatase Total Protein Albumin Quality VTE Prophylaxis VTE prophylaxis: mechanical ordered Hospitalist MIPS Advance Care Plan I have confirmed that the patient's Advanced Care Plan is present, code status is documented, or surrogate decision maker is listed in patient medical record.: Yes Medication Reconciliation I have utilized all available resources to obtain, update and review the patients current medications (includes all prescriptions, OTC, herbals, cannabis, and nutritional supplements).: Yes
[2024-06-27 16:37] LABS: Glucose Point of Care 271 mg/dl (65-105)
[2024-06-27 20:25] LABS: Glucose Point of Care 290 mg/dl (65-105)
[2024-06-27] MEDS: PREGABALIN (*CRX) 25 MG CAPSULE PO (20:42)
[2024-06-27] MEDS: TAMSULOSIN HCL 0.4 MG CAPSULE PO (20:42)
[2024-06-27] MEDS: ATORVASTATIN 40 MG TABLET PO (20:42)
[2024-06-28] VITALS (28 sets, daily range): BP systolic 93–107; BP diastolic 39–52; PULSE 60–70; RESP 16–24; TEMP 36.4–36.9; O2SAT 92–100
[2024-06-28] MEDS: IPRATROPIUM 0.5 MG/ALBUTEROL SULFATE 2.5 MG AMPUL.NEB 3 ML INHALATION ×4 (01:36→19:15)
[2024-06-28 04:42] LABS: Eosinophils Percent Auto 0.8 % (0-4.4); Hematocrit 27.7 % (42.0-52.0); Hemoglobin 8.4 g/dL (14.0-18.0); Immature Granulocyte Absolute 0.03 K/mm3 (0.00-0.031); Immature Granulocyte Percent A 0.8 % (0-0.5); Lymphocytes Percent Auto 10.3 % (18.3-44.2); Mean Corpuscular HGB Conc 30.3 g/dl (32-36); Mean Corpuscular Volume 98.9 fl (80-100); Mean Platelet Volume 10.2 fl (7.4-10.4); Monocytes Absolute Auto 0.3 K/mm3 (0.1-0.6); Monocytes Percent Auto 6.7 % (2.6-8.5); Neutrophils Absolute Auto 3.2 K/mm3 (1.3-6.7); Neutrophils Percent Auto 81.4 % (45.5-73.1); Platelet Count Result 104 k/mm3 (150-375); Red Cell Distribution Width 15.2 % (11.5-14.5); White Blood Count 3.9 K/mm3 (4.5-10.0)
[2024-06-28 04:50] LABS: Alanine Aminotransferase 12 U/L (6-50); Albumin Level 3.1 g/dL (3.5-5.1); Alkaline Phosphatase 72 U/L (38-126); Anion Gap 9 mmol/L (4-12); Aspartate Amino Transferase 16 U/L (17-59); Bilirubin,Total 0.6 mg/dL (0.2-1.3); Blood Urea Nitrogen 107 mg/dL (9-20); Calcium 8.2 mg/dL (8.4-10.2); Carbon Dioxide 33 mmol/L (22-30); Chloride 90 mmol/L (98-107); Estimated CRCL calculation 24 ml/min; Estimated Glomerular Filt Rate 26; Glucose 224 mg/dL (65-110); Potassium 4.8 mmol/L (3.4-5.0); Sodium 132 mmol/L (137-145)
[2024-06-28 08:14] LABS: Glucose Point of Care 226 mg/dl (65-105)
[2024-06-28] MEDS: METOPROLOL SUCCINATE EXT REL 25 MG TABCR PO (09:14)
[2024-06-28] MEDS: CYANOCOBALAMIN 1,000 MCG TABLET 1000 MCG PO (09:14)
[2024-06-28] MEDS: FOLIC ACID 1 MG TABLET PO (09:14)
[2024-06-28] MEDS: CHOLECALCIFEROL 1,000 UNITS TABLET 1000 UNITS PO (09:14)
[2024-06-28] MEDS: FERROUS SULFATE 325 MG TABLET DR PO ×2 (09:15→17:26)
[2024-06-28] MEDS: INSULIN ASPART (*BKC) 100 UNITS/ML SUB-Q ×4 (09:15→21:30)
[2024-06-28] MEDS: PANTOPRAZOLE 40 MG TABLET PO (09:15)
[2024-06-28] MEDS: FINASTERIDE 5 MG TABLET PO (09:15)
[2024-06-28] MEDS: ISOSORBIDE MONONITRATE 10 MG TABLET 15 MG PO ×2 (09:17→17:26)
--- NOTE | 2024-06-28 10:20 | P.PNIM_ITS ---
Progress Note: A&P Assessment and Plan (1) Acute ischemic stroke: Code(s): I63.9 - Cerebral infarction, unspecified Status: Acute Assessment and Plan: * Head CT shown hypodensity in the left posterior temporal/occipital area suggestive of acute/subacute infarct with multiple hyperdensities which may be hemorrhagic areas * Head/neck CTA showed severe calcification of the carotid arteries 60% on the right side, bilateral pleural effusion with adjacent atelectasis versus pneumonia * Awaiting transfer to [facility] * MRI of the brain and brainstem ordered however patient has pacemaker (2) Acute and chronic respiratory failure with hypercapnia: Code(s): J96.22 - Acute and chronic respiratory failure with hypercapnia Status: Acute Assessment and Plan: * ABG showing a pH of 7.313, pCO2 61.6, bicarb 30.5, PO2 90.9 * Continue BiPAP (3) CHF (congestive heart failure): Code(s): I50.9 - Heart failure, unspecified Status: Chronic Assessment and Plan: * ProBNP greater than 30,000, patient has 4+ pitting edema to bilateral lower extremities * Troponin 0.078> 0.078> 0.070--likely demand ischemia * Bumex 1 mg IV push given overnight * Last echocardiogram reviewed from 06/10/2024 which shown mildly reduced LV systolic function with an estimated EF of 40-45%, right ventricular systolic function is reduced, left and right atrial chamber severely enlarged, bioprosthetic valve appears to be well seated, pulmonary hypertension with an estimated pulmonary arterial systolic pressure of 66 mmHg * Initial chest x-ray shown bilateral basal atelectasis versus pneumonia with bilateral pleural effusion, cardiomegaly with cardiac decompensation and pulmonary edema * Will repeat chest x-ray this morning * Continue metoprolol * Continue IV diuresis with Lasix 40 mg BID (4) Elevated d-dimer: Code(s): R79.89 - Other specified abnormal findings of blood chemistry Status: Acute Assessment and Plan: * D-dimer 1.9 * Will get V/Q scan today to rule out PE * Venous Doppler to rule out DVT (5) DM2 (diabetes mellitus, type 2): Code(s): E11.9 - Type 2 diabetes mellitus without complications Status: Chronic Assessment and Plan: * Blood sugars ranging 175-230 * Hgb A1C 5.4 on 09/03/2020 * Will recheck hemoglobin A1c * Accu checks AC/HS * High-dose SSI ordered * hypoglycemic protocol in place * Diabetic diet and 2 g sodium diet ordered (6) COPD (chronic obstructive pulmonary disease): Code(s): J44.9 - Chronic obstructive pulmonary disease, unspecified Status: Chronic Assessment and Plan: * DuoNebs ordered q.6 hour (7) Hypertension: Code(s): I10 - Essential (primary) hypertension Status: Chronic Assessment and Plan: * Blood pressure ranging 102/54 to 118/72 * Continue isosorbide (8) CAD (coronary artery disease): Code(s): I25.10 - Atherosclerotic heart disease of [place] coronary artery without angina pectoris Status: Chronic Assessment and Plan: * Status post CABG x5 vessel * Continue atorvastatin (9) Pacemaker: Code(s): Z95.0 - Presence of cardiac pacemaker Status: Acute Assessment and Plan: * Ventricular pacemaker in place * EKG showed electronic ventricular pacemaker with a rate of 65, QTC 517 (10) BPH (benign prostatic hyperplasia): Code(s): N40.0 - Benign prostatic hyperplasia without lower urinary tract symptoms Status: Chronic Assessment and Plan: * Continue finasteride and tamsulosin (11) Chronic anemia: Code(s): D64.9 - Anemia, unspecified Status: Chronic Assessment and Plan: * Hemoglobin 9.4 * Appears to be chronic * Continue ferrous sulfate (12) Sleep apnea: Code(s): G47.30 - Sleep apnea, unspecified Status: Chronic Assessment and Plan: * Patient currently requiring BiPAP due to hypercapnia Subjective Date/time seen: 06/28/24 10:20 Interval history: Pending transfer. Denies any complaints Review of Systems Review of Systems: All systems reviewed & are unremarkable except as noted in HPI and below Exam Narrative: General: In no acute distress, well nourished Head: atraumatic, no encephalopathy Eyes: PERRLA, sclera clear ENT: moist mucous membranes, nasal passages clear Neck: supple, no JVD, no adenopathy, trachea midline Cardiac: Normal S1 and S2. No murmur, gallops or friction rubs, peripheral pulses intact. Respiratory:Inspiratory and expiratory wheezing, no other adventitious lung sounds, currently on nasal cannula with use of accessory muscles and acute respiratory distress. Gastrointestinal: soft, non-distended, non-tender, normoactive bowel sounds. : voiding without difficulty. Extremities:BUE with [employer] 4/5 bilaterally, 4+ pitting edema to bilateral lower extremities Skin: clean, dry, intact. No wounds or lesions. Neuro: Alert and oriented x4, cranial nerves intact, no neuro deficits. Psych: normal mood, normal affect, interactive Objective Data Vital Signs Vital Signs: Vital Signs - 24 hr 06/27/24 12:00 06/27/24 12:00 06/27/24 12:00 Temperature 97.6 F Pulse Rate 61 60 Respiratory Rate 24 H Blood Pressure 98/41 L Pulse Oximetry 100 100 Oxygen Delivery Nasal Cannula Oxygen Flow Rate 3 Fraction of Inspired Oxygen 06/27/24 14:00 06/27/24 14:20 06/27/24 14:30 Temperature Pulse Rate 61 62 60 Respiratory Rate 18 18 Blood Pressure Pulse Oximetry Oxygen Delivery Oxygen Flow Rate Fraction of Inspired Oxygen 06/27/24 16:00 06/27/24 16:00 06/27/24 16:00 Temperature 97.5 F L Pulse Rate 60 60 Respiratory Rate 16 Blood Pressure 102/44 L Pulse Oximetry 100 100 Oxygen Delivery Nasal Cannula Oxygen Flow Rate 3 Fraction of Inspired Oxygen 06/27/24 18:00 06/27/24 19:51 06/27/24 19:54 Temperature Pulse Rate 61 60 60 Respiratory Rate 16 16 Blood Pressure Pulse Oximetry 99 Oxygen Delivery Nasal Cannula Oxygen Flow Rate 2 Fraction of Inspired Oxygen 06/27/24 19:58 06/27/24 20:00 06/27/24 20:00 Temperature 97.8 F Pulse Rate 60 60 Respiratory Rate 16 20 Blood Pressure 113/45 L Pulse Oximetry 100 98 Oxygen Delivery Nasal Cannula Oxygen Flow Rate 3 Fraction of Inspired Oxygen 06/27/24 20:00 06/27/24 21:27 06/27/24 22:00 Temperature Pulse Rate 60 60 60 Respiratory Rate 21 H Blood Pressure Pulse Oximetry 98 Oxygen Delivery BiPAP Oxygen Flow Rate Fraction of Inspired Oxygen 06/27/24 23:53 06/28/24 00:00 06/28/24 00:00 Temperature 97.7 F Pulse Rate 60 62 Respiratory Rate 19 Blood Pressure 110/56 L Pulse Oximetry 100 99 Oxygen Delivery Nasal Cannula Oxygen Flow Rate 3 Fraction of Inspired Oxygen 06/28/24 01:36 06/28/24 01:39 06/28/24 01:42 Temperature Pulse Rate 62 61 61 Respiratory Rate 21 H 19 19 Blood Pressure Pulse Oximetry 99 Oxygen Delivery BiPAP Oxygen Flow Rate Fraction of Inspired Oxygen 06/28/24 02:00 06/28/24 04:00 06/28/24 04:00 Temperature 97.7 F Pulse Rate 60 62 Respiratory Rate 22 H Blood Pressure 100/39 L Pulse Oximetry 97 97 Oxygen Delivery Nasal Cannula Oxygen Flow Rate 3 Fraction of Inspired Oxygen 06/28/24 04:00 06/28/24 06:00 06/28/24 07:28 Temperature Pulse Rate 60 60 Respiratory Rate Blood Pressure Pulse Oximetry 98 Oxygen Delivery BiPAP Oxygen Flow Rate Fraction of Inspired Oxygen 06/28/24 07:28 06/28/24 07:36 06/28/24 07:36 Temperature Pulse Rate 61 60 Respiratory Rate 18 18 Blood Pressure Pulse Oximetry 98 Oxygen Delivery Nasal Cannula Oxygen Flow Rate 2 Fraction of Inspired Oxygen 06/28/24 08:00 06/28/24 09:14 Temperature 97.5 F L Pulse Rate 60 60 Respiratory Rate 20 Blood Pressure 98/39 L Pulse Oximetry 97 Oxygen Delivery Oxygen Flow Rate Fraction of Inspired Oxygen Intake/Output Intake/Output: Intake & Output 06/25/24 06/26/24 06/27/24 06/28/24 23:59 23:59 23:59 23:59 Intake Total 50 1200 1825 490 Output Total 950 600 500 Balance 50 250 1225 -10 Meds/Results Medications: Active Medications Generic Name Dose Route Start Last Admin Trade Name Freq PRN Reason Stop Dose Admin Acetaminophen 650 mg 06/25/24 23:05 Acetaminophen 325 Mg Tablet PO Q4H PRN Mild Pain (1-3) or Fever Albuterol/Ipratropium 3 ml 06/26/24 02:00 06/28/24 07:28 Ipratropium 0.5 Mg/Albuterol Sulfate 2.5 Mg Ampul.Neb 3 Ml INHALATION 3 ml Q6HRT WARD Administration Atorvastatin Calcium 40 mg 06/25/24 23:10 06/27/24 20:42 Atorvastatin 40 Mg Tablet PO 40 mg HS WARD Administration Cyanocobalamin 1,000 mcg 06/26/24 09:00 06/28/24 09:14 Cyanocobalamin 1,000 Mcg Tablet PO 1,000 mcg DAILY WARD Administration Dextrose 12.5 gm 06/26/24 04:23 Dextrose 50% 25 Gm/50 Ml Syringe IV PUSH PRN PRN Hypoglycemia Protocol Ferrous Sulfate 325 mg 06/26/24 09:00 06/28/24 09:15 Ferrous Sulfate [address] PO 325 mg BID WARD Administration Finasteride 5 mg 06/26/24 09:00 06/28/24 09:15 Finasteride 5 Mg Tablet PO 5 mg DAILY WARD Administration Folic Acid 1 mg 06/26/24 09:00 06/28/24 09:14 Folic Acid 1 Mg Tablet PO 1 mg DAILY WARD Administration Furosemide 40 mg 06/26/24 09:00 06/27/24 13:07 Furosemide Inj 40 Mg/4 Ml Vial IV PUSH Not Given BID WARD Glucagon 1 mg 06/26/24 04:23 Glucagon For Inj 1 Mg Vial IM PRN PRN Hypoglycemia Protocol Glucose 15 gm 06/26/24 04:23 Glucose Oral Gel 15 Gm Of Glucse In 37.5 Gm Tube PO PRN PRN Hypoglycemia Protocol Dextrose 1,000 mls @ 100 mls/hr 06/26/24 04:23 Dextrose 5% 1,000 Ml IVPB PRN PRN Hypoglycemia Protocol Insulin Aspart 4 - 8 units 06/26/24 08:00 06/28/24 09:15 Insulin Aspart (*Bkc) 100 Units/Ml SUB-Q 4 units TIDWM WARD Administration Protocol Insulin Aspart 2 - 4 units 06/26/24 21:00 06/27/24 20:47 Insulin Aspart (*Bkc) 100 Units/Ml SUB-Q 2 units HS WARD Administration Protocol Insulin Glargine 8 units 06/28/24 21:00 Insulin Glargine (*Bkc) 100 Units/Ml SUB-Q HS WARD Isosorbide Mononitrate 15 mg 06/26/24 09:00 06/28/24 09:17 Isosorbide Mononitrate 10 Mg Tablet PO 15 mg BID@0900,1600 WARD Administration Metoprolol Succinate 25 mg 06/26/24 09:00 06/28/24 09:14 Metoprolol Succinate Ext Rel 25 Mg Tabcr PO 25 mg QAM WARD Administration Ondansetron HCl 4 mg 06/25/24 23:05 Ondansetron Inj 4 Mg/2 Ml Vial IV PUSH Q6H PRN Nausea And Vomiting Pantoprazole Sodium 40 mg 06/26/24 09:00 06/28/24 09:15 Pantoprazole 40 Mg Tablet PO 40 mg QAM WARD Administration Pregabalin 25 mg 06/26/24 21:00 06/27/24 20:42 Pregabalin (*Crx) 25 Mg Capsule PO 25 mg HS WARD Administration Tamsulosin HCl 0.4 mg 06/25/24 23:10 06/27/24 20:42 Tamsulosin Hcl 0.4 Mg Capsule PO 0.4 mg QHS WARD Administration Vitamin D 1,000 units 06/26/24 09:00 06/28/24 09:14 Cholecalciferol 1,000 Units Tablet PO 1,000 units DAILY WARD Administration Radiology Results: ITS Impressions Head CT 06/24/24 18:31 IMPRESSION: Hypodensity in the left posterior temporal/occipital area which is suggestive of acute/subacute infarct with multiple hyperdensities which may be hemorrhagic areas. Calcification is less likely. MRI evaluation is advised. Physician: Manav Duarte MD Was notified with the result of the patient at time 6:45 PM on June 24, 2024. Head/Neck CTA 06/24/24 19:43 IMPRESSION: 1. Nonvisualization of the distal left posterior cerebral artery. Otherwise normal CTA of the head. 2. CTA of the neck. Shows severe calcification of the carotid arteries. Percent stenosis per NASCET criteria is 60% on the right side. 3. Bilateral pleural effusion with adjacent atelectasis versus pneumonia. Chest X-Ray 06/26/24 05:51 IMPRESSION: 1. Stable airspace opacities in the mid and lower lung zones, consistent with atelectasis versus pneumonia. 2. Small pleural effusions. 3. Cardiomegaly. Venous Doppler Study 06/26/24 12:46 IMPRESSION: 1. No deep venous thrombosis. Pulmonary Perfusion Imaging 06/26/24 13:58 IMPRESSION: 1. No immediate probability for pulmonary embolism. Labs Labs: Laboratory Results - last 24 hr 06/27/24 06/27/24 06/27/24 11:39 16:34 20:02 WBC RBC Hgb Hct MCV MCH MCHC RDW Plt Count MPV Immature Gran % (Auto) Neut % (Auto) Lymph % (Auto) [place] % (Auto) Eos % (Auto) Baso % (Auto) Lymph # (Auto) [place] # (Auto) Eos # (Auto) Baso # (Auto) Abs Immat Gran (auto) Absolute Neuts (auto) Absolute Nucleated RBC Nucleated RBC % Sodium Potassium Chloride Carbon Dioxide Anion Gap BUN Creatinine Estim Creat Clear Calc Estimated GFR Glucose POC Capillary Glucose 291 H 271 H 290 H Calcium Total Bilirubin AST ALT Alkaline Phosphatase Total Protein Albumin 06/28/24 06/28/24 04:21 07:39 WBC 3.9 L RBC 2.80 L Hgb 8.4 L Hct 27.7 L MCV 98.9 MCH 30.0 MCHC 30.3 L RDW 15.2 H Plt Count 104 L MPV 10.2 Immature Gran % (Auto) 0.8 H Neut % (Auto) 81.4 H Lymph % (Auto) 10.3 L [place] % (Auto) 6.7 Eos % (Auto) 0.8 Baso % (Auto) 0.0 L Lymph # (Auto) 0.40 L [place] # (Auto) 0.3 Eos # (Auto) 0.0 Baso # (Auto) 0.0 Abs Immat Gran (auto) 0.03 Absolute Neuts (auto) 3.2 Absolute Nucleated RBC 0.000 Nucleated RBC % 0.0 Sodium 132 L Potassium 4.8 Chloride 90 L Carbon Dioxide 33 H Anion Gap 9 BUN 107 H Creatinine 2.44 H Estim Creat Clear Calc 24 Estimated GFR 26 L Glucose 224 H POC Capillary Glucose 226 H Calcium 8.2 L Total Bilirubin 0.6 AST 16 L ALT 12 Alkaline Phosphatase 72 Total Protein 6.0 L Albumin 3.1 L Quality VTE Prophylaxis VTE prophylaxis: mechanical ordered Hospitalist MIPS Advance Care Plan I have confirmed that the patient's Advanced Care Plan is present, code status is documented, or surrogate decision maker is listed in patient medical record.: Yes Medication Reconciliation I have utilized all available resources to obtain, update and review the patients current medications (includes all prescriptions, OTC, herbals, cannabis, and nutritional supplements).: Yes
[2024-06-28 11:52] LABS: Glucose Point of Care 314 mg/dl (65-105)
[2024-06-28 17:17] LABS: Glucose Point of Care 311 mg/dl (65-105)
[2024-06-28 20:34] LABS: Glucose Point of Care 292 mg/dl (65-105)
[2024-06-28] MEDS: ATORVASTATIN 40 MG TABLET PO (21:30)
[2024-06-28] MEDS: TAMSULOSIN HCL 0.4 MG CAPSULE PO (21:30)
[2024-06-28] MEDS: INSULIN GLARGINE (*BKC) 100 UNITS/ML 8 UNITS SUB-Q (21:30)
[2024-06-28] MEDS: PREGABALIN (*CRX) 25 MG CAPSULE PO (21:30)
[2024-06-29] VITALS (24 sets, daily range): BP systolic 100–118; BP diastolic 44–67; PULSE 59–76; RESP 16–23; TEMP 36–36.8; O2SAT 91–100
[2024-06-29] MEDS: IPRATROPIUM 0.5 MG/ALBUTEROL SULFATE 2.5 MG AMPUL.NEB 3 ML INHALATION ×4 (02:03→21:17)
[2024-06-29 04:50] LABS: Basophils Percent Auto 0.2 % (0.2-1.2); Eosinophils Percent Auto 0.8 % (0-4.4); Hematocrit 27.6 % (42.0-52.0); Hemoglobin 8.4 g/dL (14.0-18.0); Immature Granulocyte Absolute 0.04 K/mm3 (0.00-0.031); Immature Granulocyte Percent A 0.8 % (0-0.5); Immature Platelet Fraction Pct 3.4 % (0.9-11.2); Lymphocytes Absolute Auto 0.43 K/mm3 (0.9-3.2); Lymphocytes Percent Auto 8.5 % (18.3-44.2); Mean Corpuscular HGB Conc 30.4 g/dl (32-36); Mean Corpuscular Hemoglobin 30.2 pg (26-34); Mean Corpuscular Volume 99.3 fl (80-100); Mean Platelet Volume 10.2 fl (7.4-10.4); Monocytes Absolute Auto 0.4 K/mm3 (0.1-0.6); Monocytes Percent Auto 6.9 % (2.6-8.5); Neutrophils Absolute Auto 4.2 K/mm3 (1.3-6.7); Neutrophils Percent Auto 82.8 % (45.5-73.1); Platelet Count Result 104 k/mm3 (150-375); Red Blood Count 2.78 M/mm3 (4.6-6.20); Red Cell Distribution Width 15.1 % (11.5-14.5); White Blood Count 5.1 K/mm3 (4.5-10.0)
[2024-06-29 05:08] LABS: Alanine Aminotransferase 11 U/L (6-50); Alkaline Phosphatase 72 U/L (38-126); Anion Gap 8 mmol/L (4-12); Aspartate Amino Transferase 15 U/L (17-59); Bilirubin,Total 0.5 mg/dL (0.2-1.3); Blood Urea Nitrogen 110 mg/dL (9-20); Calcium 7.9 mg/dL (8.4-10.2); Carbon Dioxide 33 mmol/L (22-30); Chloride 90 mmol/L (98-107); Estimated CRCL calculation 22 ml/min; Estimated Glomerular Filt Rate 24; Glucose 245 mg/dL (65-110); Potassium 5.2 mmol/L (3.4-5.0); Sodium 131 mmol/L (137-145)
[2024-06-29 07:41] LABS: Glucose Point of Care 238 mg/dl (65-105)
[2024-06-29] MEDS: INSULIN ASPART (*BKC) 100 UNITS/ML SUB-Q ×4 (08:40→20:54)
[2024-06-29] MEDS: FOLIC ACID 1 MG TABLET PO (08:47)
[2024-06-29] MEDS: FINASTERIDE 5 MG TABLET PO (08:47)
[2024-06-29] MEDS: METOPROLOL SUCCINATE EXT REL 25 MG TABCR PO (08:47)
[2024-06-29] MEDS: CYANOCOBALAMIN 1,000 MCG TABLET 1000 MCG PO (08:47)
[2024-06-29] MEDS: PANTOPRAZOLE 40 MG TABLET PO (08:47)
[2024-06-29] MEDS: CHOLECALCIFEROL 1,000 UNITS TABLET 1000 UNITS PO (08:47)
[2024-06-29] MEDS: FERROUS SULFATE 325 MG TABLET DR PO ×2 (08:47→17:15)
[2024-06-29] MEDS: ISOSORBIDE MONONITRATE 10 MG TABLET 15 MG PO ×2 (10:01→17:15)
--- NOTE | 2024-06-29 10:59 | P.PNIM_ITS ---
Progress Note: A&P Assessment and Plan (1) Acute ischemic stroke: Code(s): I63.9 - Cerebral infarction, unspecified Status: Acute Assessment and Plan: * Head CT shown hypodensity in the left posterior temporal/occipital area suggestive of acute/subacute infarct with multiple hyperdensities which may be hemorrhagic areas * Head/neck CTA showed severe calcification of the carotid arteries 60% on the right side, bilateral pleural effusion with adjacent atelectasis versus pneumonia * Awaiting transfer to [facility] for Neurology Services * MRI of the brain and brainstem ordered however patient has pacemaker (2) Acute and chronic respiratory failure with hypercapnia: Code(s): J96.22 - Acute and chronic respiratory failure with hypercapnia Status: Acute Assessment and Plan: * ABG showing a pH of 7.313, pCO2 61.6, bicarb 30.5, PO2 90.9 * Continue BiPAP (3) CHF (congestive heart failure): Code(s): I50.9 - Heart failure, unspecified Status: Chronic Assessment and Plan: * ProBNP greater than 30,000, patient has 4+ pitting edema to bilateral lower extremities * Troponin 0.078> 0.078> 0.070--likely demand ischemia * Bumex 1 mg IV push given overnight * Last echocardiogram reviewed from 06/10/2024 which shown mildly reduced LV systolic function with an estimated EF of 40-45%, right ventricular systolic function is reduced, left and right atrial chamber severely enlarged, bioprosthetic valve appears to be well seated, pulmonary hypertension with an estimated pulmonary arterial systolic pressure of 66 mmHg * Initial chest x-ray shown bilateral basal atelectasis versus pneumonia with bilateral pleural effusion, cardiomegaly with cardiac decompensation and pulmonary edema * Will repeat chest x-ray this morning * Continue metoprolol * Continue IV diuresis with Lasix 40 mg BID (4) Elevated d-dimer: Code(s): R79.89 - Other specified abnormal findings of blood chemistry Status: Acute Assessment and Plan: * D-dimer 1.9 * Will get V/Q scan today to rule out PE * Venous Doppler to rule out DVT (5) DM2 (diabetes mellitus, type 2): Code(s): E11.9 - Type 2 diabetes mellitus without complications Status: Chronic Assessment and Plan: * Blood sugars ranging 175-230 * Hgb A1C 5.4 on 09/03/2020 * Will recheck hemoglobin A1c * Accu checks AC/HS * High-dose SSI ordered * hypoglycemic protocol in place * Diabetic diet and 2 g sodium diet ordered (6) COPD (chronic obstructive pulmonary disease): Code(s): J44.9 - Chronic obstructive pulmonary disease, unspecified Status: Chronic Assessment and Plan: * DuoNebs ordered q.6 hour (7) Hypertension: Code(s): I10 - Essential (primary) hypertension Status: Chronic Assessment and Plan: * Blood pressure ranging 102/54 to 118/72 * Continue isosorbide (8) CAD (coronary artery disease): Code(s): I25.10 - Atherosclerotic heart disease of [place] coronary artery without angina pectoris Status: Chronic Assessment and Plan: * Status post CABG x5 vessel * Continue atorvastatin (9) Pacemaker: Code(s): Z95.0 - Presence of cardiac pacemaker Status: Acute Assessment and Plan: * Ventricular pacemaker in place * EKG showed electronic ventricular pacemaker with a rate of 65, QTC 517 (10) BPH (benign prostatic hyperplasia): Code(s): N40.0 - Benign prostatic hyperplasia without lower urinary tract symptoms Status: Chronic Assessment and Plan: * Continue finasteride and tamsulosin (11) Chronic anemia: Code(s): D64.9 - Anemia, unspecified Status: Chronic Assessment and Plan: * Hemoglobin 9.4 * Appears to be chronic * Continue ferrous sulfate (12) Sleep apnea: Code(s): G47.30 - Sleep apnea, unspecified Status: Chronic Assessment and Plan: * Patient currently requiring BiPAP due to hypercapnia Subjective Date/time seen: 06/29/24 10:59 Interval history: Pending transfer to [facility] for CVA Review of Systems Review of Systems: All systems reviewed & are unremarkable except as noted in HPI and below Exam Narrative: General: In no acute distress, well nourished Head: atraumatic, no encephalopathy Eyes: PERRLA, sclera clear ENT: moist mucous membranes, nasal passages clear Neck: supple, no JVD, no adenopathy, trachea midline Cardiac: Normal S1 and S2. No murmur, gallops or friction rubs, peripheral pulses intact. Respiratory:Inspiratory and expiratory wheezing, no other adventitious lung sounds, currently on nasal cannula with use of accessory muscles and acute respiratory distress. Gastrointestinal: soft, non-distended, non-tender, normoactive bowel sounds. : voiding without difficulty. Extremities:BUE with good hand sales architect 4/5 bilaterally, 4+ pitting edema to bilateral lower extremities Skin: clean, dry, intact. No wounds or lesions. Neuro: Alert and oriented x4, cranial nerves intact, no neuro deficits. Psych: normal mood, normal affect, interactive Objective Data Vital Signs Vital Signs: Vital Signs - 24 hr 06/28/24 11:53 06/28/24 12:00 06/28/24 12:00 Temperature 97.6 F Pulse Rate 64 60 Respiratory Rate 24 H Blood Pressure 107/46 L Pulse Oximetry 93 100 Oxygen Delivery Nasal Cannula Oxygen Flow Rate 3 Fraction of Inspired Oxygen 06/28/24 13:18 06/28/24 13:18 06/28/24 13:26 Temperature Pulse Rate 60 60 Respiratory Rate 20 20 Blood Pressure Pulse Oximetry 96 Oxygen Delivery Nasal Cannula Oxygen Flow Rate 2 Fraction of Inspired Oxygen 28 06/28/24 14:00 06/28/24 15:51 06/28/24 16:00 Temperature 98.4 F Pulse Rate 60 60 60 Respiratory Rate 16 Blood Pressure 93/40 L Pulse Oximetry 99 Oxygen Delivery Oxygen Flow Rate Fraction of Inspired Oxygen 06/28/24 16:00 06/28/24 18:00 06/28/24 19:15 Temperature Pulse Rate 60 60 Respiratory Rate 16 Blood Pressure Pulse Oximetry 94 Oxygen Delivery Nasal Cannula Oxygen Flow Rate 3 Fraction of Inspired Oxygen 06/28/24 19:27 06/28/24 19:35 06/28/24 19:40 Temperature 97.7 F Pulse Rate 60 60 Respiratory Rate 16 18 Blood Pressure 106/41 L Pulse Oximetry 94 93 Oxygen Delivery Nasal Cannula Oxygen Flow Rate 2 Fraction of Inspired Oxygen 28 06/28/24 20:00 06/28/24 20:00 06/28/24 22:00 Temperature Pulse Rate 60 60 Respiratory Rate Blood Pressure Pulse Oximetry 92 Oxygen Delivery Nasal Cannula Oxygen Flow Rate 2 Fraction of Inspired Oxygen 06/28/24 23:00 06/28/24 23:35 06/29/24 00:00 Temperature 97.8 F Pulse Rate 70 60 Respiratory Rate 24 H 18 Blood Pressure 106/52 L Pulse Oximetry 96 97 96 Oxygen Delivery BiPAP BiPAP Oxygen Flow Rate Fraction of Inspired Oxygen 35 06/29/24 00:00 06/29/24 02:00 06/29/24 02:00 Temperature Pulse Rate 60 60 61 Respiratory Rate 16 Blood Pressure Pulse Oximetry Oxygen Delivery Oxygen Flow Rate Fraction of Inspired Oxygen 06/29/24 02:11 06/29/24 02:14 06/29/24 04:00 Temperature 97.7 F Pulse Rate 60 70 60 Respiratory Rate 16 21 H 18 Blood Pressure 105/49 L Pulse Oximetry 96 96 Oxygen Delivery BiPAP Oxygen Flow Rate Fraction of Inspired Oxygen 06/29/24 04:00 06/29/24 04:00 06/29/24 06:00 Temperature Pulse Rate 60 60 Respiratory Rate Blood Pressure Pulse Oximetry 97 Oxygen Delivery BiPAP Oxygen Flow Rate Fraction of Inspired Oxygen 35 06/29/24 07:37 06/29/24 07:37 06/29/24 08:00 Temperature 96.8 F L Pulse Rate 60 59 L Respiratory Rate 20 20 Blood Pressure 100/47 L Pulse Oximetry 100 100 Oxygen Delivery Nasal Cannula Oxygen Flow Rate 2 Fraction of Inspired Oxygen 06/29/24 08:00 06/29/24 08:00 06/29/24 08:05 Temperature Pulse Rate 60 76 Respiratory Rate 20 Blood Pressure Pulse Oximetry 98 Oxygen Delivery Nasal Cannula Oxygen Flow Rate 2 Fraction of Inspired Oxygen 97 06/29/24 08:47 Temperature Pulse Rate 63 Respiratory Rate Blood Pressure Pulse Oximetry Oxygen Delivery Oxygen Flow Rate Fraction of Inspired Oxygen Intake/Output Intake/Output: Intake & Output 06/26/24 06/27/24 06/28/24 06/29/24 23:59 23:59 23:59 23:59 Intake Total 1200 1825 930 Output Total 950 600 900 0 Balance 250 1225 30 0 Meds/Results Medications: Active Medications Generic Name Dose Route Start Last Admin Trade Name Freq PRN Reason Stop Dose Admin Acetaminophen 650 mg 06/25/24 23:05 Acetaminophen 325 Mg Tablet PO Q4H PRN Mild Pain (1-3) or Fever Albuterol/Ipratropium 3 ml 06/26/24 02:00 06/29/24 07:35 Ipratropium 0.5 Mg/Albuterol Sulfate 2.5 Mg Ampul.Neb 3 Ml INHALATION 3 ml Q6HRT WARD Administration Atorvastatin Calcium 40 mg 06/25/24 23:10 06/28/24 21:30 Atorvastatin 40 Mg Tablet PO 40 mg HS WARD Administration Cyanocobalamin 1,000 mcg 06/26/24 09:00 06/29/24 08:47 Cyanocobalamin 1,000 Mcg Tablet PO 1,000 mcg DAILY WARD Administration Dextrose 12.5 gm 06/26/24 04:23 Dextrose 50% 25 Gm/50 Ml Syringe IV PUSH PRN PRN Hypoglycemia Protocol Ferrous Sulfate 325 mg 06/26/24 09:00 06/29/24 08:47 Ferrous Sulfate [address] PO 325 mg BID WARD Administration Finasteride 5 mg 06/26/24 09:00 06/29/24 08:47 Finasteride 5 Mg Tablet PO 5 mg DAILY WARD Administration Folic Acid 1 mg 06/26/24 09:00 06/29/24 08:47 Folic Acid 1 Mg Tablet PO 1 mg DAILY WARD Administration Furosemide 40 mg 06/26/24 09:00 06/27/24 13:07 Furosemide Inj 40 Mg/4 Ml Vial IV PUSH Not Given BID WARD Glucagon 1 mg 06/26/24 04:23 Glucagon For Inj 1 Mg Vial IM PRN PRN Hypoglycemia Protocol Glucose 15 gm 06/26/24 04:23 Glucose Oral Gel 15 Gm Of Glucse In 37.5 Gm Tube PO PRN PRN Hypoglycemia Protocol Dextrose 1,000 mls @ 100 mls/hr 06/26/24 04:23 Dextrose 5% 1,000 Ml IVPB PRN PRN Hypoglycemia Protocol Insulin Aspart 4 - 8 units 06/26/24 08:00 06/29/24 08:40 Insulin Aspart (*Bkc) 100 Units/Ml SUB-Q 4 units TIDWM WARD Administration Protocol Insulin Aspart 2 - 4 units 06/26/24 21:00 06/28/24 21:30 Insulin Aspart (*Bkc) 100 Units/Ml SUB-Q 2 units HS WARD Administration Protocol Insulin Glargine 8 units 06/28/24 21:00 06/28/24 21:30 Insulin Glargine (*Bkc) 100 Units/Ml SUB-Q 8 units HS WARD Administration Isosorbide Mononitrate 15 mg 06/26/24 09:00 06/29/24 10:01 Isosorbide Mononitrate 10 Mg Tablet PO 15 mg BID@0900,1600 WARD Administration Metoprolol Succinate 25 mg 06/26/24 09:00 06/29/24 08:47 Metoprolol Succinate Ext Rel 25 Mg Tabcr PO 25 mg QAM WARD Administration Ondansetron HCl 4 mg 06/25/24 23:05 Ondansetron Inj 4 Mg/2 Ml Vial IV PUSH Q6H PRN Nausea And Vomiting Pantoprazole Sodium 40 mg 06/26/24 09:00 06/29/24 08:47 Pantoprazole 40 Mg Tablet PO 40 mg QAM WARD Administration Pregabalin 25 mg 06/26/24 21:00 06/28/24 21:30 Pregabalin (*Crx) 25 Mg Capsule PO 25 mg HS WARD Administration Tamsulosin HCl 0.4 mg 06/25/24 23:10 06/28/24 21:30 Tamsulosin Hcl 0.4 Mg Capsule PO 0.4 mg QHS WARD Administration Vitamin D 1,000 units 06/26/24 09:00 06/29/24 08:47 Cholecalciferol 1,000 Units Tablet PO 1,000 units DAILY WARD Administration Radiology Results: ITS Impressions Head CT 06/24/24 18:31 IMPRESSION: Hypodensity in the left posterior temporal/occipital area which is suggestive of acute/subacute infarct with multiple hyperdensities which may be hemorrhagic areas. Calcification is less likely. MRI evaluation is advised. Physician: Manav Duarte MD Was notified with the result of the patient at time 6:45 PM on June 24, 2024. Head/Neck CTA 06/24/24 19:43 IMPRESSION: 1. Nonvisualization of the distal left posterior cerebral artery. Otherwise normal CTA of the head. 2. CTA of the neck. Shows severe calcification of the carotid arteries. Percent stenosis per NASCET criteria is 60% on the right side. 3. Bilateral pleural effusion with adjacent atelectasis versus pneumonia. Chest X-Ray 06/26/24 05:51 IMPRESSION: 1. Stable airspace opacities in the mid and lower lung zones, consistent with atelectasis versus pneumonia. 2. Small pleural effusions. 3. Cardiomegaly. Venous Doppler Study 06/26/24 12:46 IMPRESSION: 1. No deep venous thrombosis. Pulmonary Perfusion Imaging 06/26/24 13:58 IMPRESSION: 1. No immediate probability for pulmonary embolism. Labs Labs: Laboratory Results - last 24 hr 06/28/24 06/28/24 06/28/24 11:12 17:10 19:42 WBC RBC Hgb Hct MCV MCH MCHC RDW Plt Count MPV Immature Gran % (Auto) Neut % (Auto) Lymph % (Auto) [place] % (Auto) Eos % (Auto) Baso % (Auto) Lymph # (Auto) [place] # (Auto) Eos # (Auto) Baso # (Auto) Abs Immat Gran (auto) Absolute Neuts (auto) Absolute Nucleated RBC Nucleated RBC % % Immature Plt Fraction Sodium Potassium Chloride Carbon Dioxide Anion Gap BUN Creatinine Estim Creat Clear Calc Estimated GFR Glucose POC Capillary Glucose 314 H 311 H 292 H Calcium Total Bilirubin AST ALT Alkaline Phosphatase Total Protein Albumin 06/29/24 06/29/24 04:26 07:29 WBC 5.1 RBC 2.78 L Hgb 8.4 L Hct 27.6 L MCV 99.3 MCH 30.2 MCHC 30.4 L RDW 15.1 H Plt Count 104 L MPV 10.2 Immature Gran % (Auto) 0.8 H Neut % (Auto) 82.8 H Lymph % (Auto) 8.[address] [place] % (Auto) 6.9 Eos % (Auto) 0.8 Baso % (Auto) 0.2 Lymph # (Auto) 0.[address] [place] # (Auto) 0.4 Eos # (Auto) 0.0 Baso # (Auto) 0.0 Abs Immat Gran (auto) 0.04 H Absolute Neuts (auto) 4.2 Absolute Nucleated RBC 0.000 Nucleated RBC % 0.0 % Immature Plt Fraction 3.4 Sodium 131 L Potassium 5.2 H Chloride 90 L Carbon Dioxide 33 H Anion Gap 8 BUN 110 H Creatinine 2.62 H Estim Creat Clear Calc 22 Estimated GFR 24 L Glucose 245 H POC Capillary Glucose 238 H Calcium 7.9 L Total Bilirubin 0.5 AST 15 L ALT 11 Alkaline Phosphatase 72 Total Protein 6.0 L Albumin 3.0 L Quality VTE Prophylaxis VTE prophylaxis: mechanical ordered Hospitalist MIPS Advance Care Plan I have confirmed that the patient's Advanced Care Plan is present, code status is documented, or surrogate decision maker is listed in patient medical record.: Yes Medication Reconciliation I have utilized all available resources to obtain, update and review the patients current medications (includes all prescriptions, OTC, herbals, cannabis, and nutritional supplements).: Yes
[2024-06-29 11:46] LABS: Glucose Point of Care 251 mg/dl (65-105)
[2024-06-29] MEDS: SODIUM ZIRCONIUM CYCLOSILICATE 10 GM POWD.PACK PO (18:54)
[2024-06-29 19:10] LABS: Glucose Point of Care 249 mg/dl (65-105)
[2024-06-29 20:24] LABS: Glucose Point of Care 286 mg/dl (65-105)
[2024-06-29] MEDS: PREGABALIN (*CRX) 25 MG CAPSULE PO (20:48)
[2024-06-29] MEDS: TAMSULOSIN HCL 0.4 MG CAPSULE PO (20:48)
[2024-06-29] MEDS: ATORVASTATIN 40 MG TABLET PO (20:48)
[2024-06-29] MEDS: INSULIN GLARGINE (*BKC) 100 UNITS/ML 8 UNITS SUB-Q (20:53)
[2024-06-30] VITALS (25 sets, daily range): BP systolic 92–117; BP diastolic 38–53; PULSE 60–65; RESP 16–22; TEMP 36.6–37; O2SAT 97–100
[2024-06-30] MEDS: IPRATROPIUM 0.5 MG/ALBUTEROL SULFATE 2.5 MG AMPUL.NEB 3 ML INHALATION ×4 (03:03→20:27)
[2024-06-30 04:30] LABS: Basophils Percent Auto 0.2 % (0.2-1.2); Eosinophils Percent Auto 0.7 % (0-4.4); Hematocrit 27.3 % (42.0-52.0); Hemoglobin 8.4 g/dL (14.0-18.0); Immature Granulocyte Absolute 0.04 K/mm3 (0.00-0.031); Immature Granulocyte Percent A 0.7 % (0-0.5); Immature Platelet Fraction Pct 3.1 % (0.9-11.2); Lymphocytes Absolute Auto 0.35 K/mm3 (0.9-3.2); Lymphocytes Percent Auto 6.3 % (18.3-44.2); Mean Corpuscular HGB Conc 30.8 g/dl (32-36); Mean Corpuscular Hemoglobin 30.5 pg (26-34); Mean Corpuscular Volume 99.3 fl (80-100); Mean Platelet Volume 10.1 fl (7.4-10.4); Monocytes Absolute Auto 0.3 K/mm3 (0.1-0.6); Neutrophils Absolute Auto 4.8 K/mm3 (1.3-6.7); Neutrophils Percent Auto 86.1 % (45.5-73.1); Platelet Count Result 96 k/mm3 (150-375); Red Blood Count 2.75 M/mm3 (4.6-6.20); Red Cell Distribution Width 15.5 % (11.5-14.5); White Blood Count 5.5 K/mm3 (4.5-10.0)
[2024-06-30 04:43] LABS: Alanine Aminotransferase 11 U/L (6-50); Albumin Level 3.1 g/dL (3.5-5.1); Alkaline Phosphatase 70 U/L (38-126); Anion Gap 8 mmol/L (4-12); Aspartate Amino Transferase 17 U/L (17-59); Bilirubin,Total 0.6 mg/dL (0.2-1.3); Blood Urea Nitrogen 114 mg/dL (9-20); Carbon Dioxide 33 mmol/L (22-30); Chloride 90 mmol/L (98-107); Estimated CRCL calculation 22 ml/min; Estimated Glomerular Filt Rate 23; Glucose 192 mg/dL (65-110); Potassium 5.3 mmol/L (3.4-5.0); Sodium 131 mmol/L (137-145)
[2024-06-30 07:40] LABS: Glucose Point of Care 176 mg/dl (65-105)
[2024-06-30] MEDS: METOPROLOL SUCCINATE EXT REL 25 MG TABCR PO (09:29)
[2024-06-30] MEDS: FOLIC ACID 1 MG TABLET PO (09:29)
[2024-06-30] MEDS: PANTOPRAZOLE 40 MG TABLET PO (09:29)
[2024-06-30] MEDS: CYANOCOBALAMIN 1,000 MCG TABLET 1000 MCG PO (09:29)
[2024-06-30] MEDS: FERROUS SULFATE 325 MG TABLET DR PO ×2 (09:29→18:50)
[2024-06-30] MEDS: FINASTERIDE 5 MG TABLET PO (09:29)
[2024-06-30] MEDS: CHOLECALCIFEROL 1,000 UNITS TABLET 1000 UNITS PO (09:29)
[2024-06-30] MEDS: ISOSORBIDE MONONITRATE 10 MG TABLET 15 MG PO ×2 (09:30→18:50)
[2024-06-30 11:41] LABS: Glucose Point of Care 276 mg/dl (65-105)
--- NOTE | 2024-06-30 11:41 | WPDNEURCNPN ---
Assessment and Plan Assessment and plan (1) Acute ischemic stroke: Code(s): I63.9 - Cerebral infarction, unspecified Status: Acute Plan 1. Change in the mental status noted at the [facility] with CT scan documenting acute subacute stroke with multiple hypodensities 2. Carotid artery stenosis with calcification 3. Already on electronic ventricular pacemaker 4 no MRI because of the electronic pacemaker 5. Treatment to be continued as such along with the other medical problems as well Consult date: 07/01/24 HPI: Jessica Wallace is a 84 year old male admitted to the hospital through the emergency room for the complaints of change in the mental status. In addition to the ongoing history of 1. Coronary artery disease for which he has undergone CABG, AICD pacemaker, 2. Congestive heart failure 3. COPD for which she is on home oxygen 2 to 3 liters patient was brought to the hospital for being somnolent with only minimally arousable to verbal or physical stimuli, initial glucose 300, chronic to deeper stimuli but oriented x4 on arrival to the ER, at that time glucose 300 without any focal deficit he also suggested that he was having irregular heartbeats when he was going through the mental status changes for the same time he has a baseline tremor which is not new for him. He has been on multiple medications which include aspirin 81mg daily, atorvastatin 40mg daily, isosorbide 15mg twice a day, finasteride 5mg daily, sitagliptin 25mg daily, furosemide 40mg daily, and he is allergic to latex and lisinopril, he has history of chronic anemia chronic renal failure chronic respiratory failure and along with the blindness of the right common coronary artery disease pacemaker and congestive heart failure, has undergone CABG 5 times with heart valve repair as and stenting in the coronary artery. He has history of smoking cigarettes 40 per day 22 years smoked his smoking pack years of 44 but at present is a former smoker. His evaluation up until now includes a venous Doppler study which is negative, head and neck CTA with known visualization of the distal left posterior cerebral artery and severe calcification of the carotid arteries on CT of the neck along with 60% stenosis on the right side. On CT of the head he was noted to hypodensity in the left posterior temporal occipital area raising the possibility for acute versus subacute infarct with multiple hypodensities for which MRI had been suggested. 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 Chronic anemia Chronic renal failure, stage 3 (moderate) Chronic respiratory failure with hypoxia He wears oxygen at 2 L per nasal cannula Hypertension Sleep apnea The patient no longer uses and CPAP machine CAD (coronary artery disease) Pacemaker CHF (congestive heart failure) COPD (chronic obstructive pulmonary disease) Surgical History Surgical History H/O cystoscopy With bladder biopsy S/P CABG x 5 S/P heart valve repair Stented coronary artery X1 Family History Family History Daughter Scleroderma Social History Social History Social History: The patient lives with his who is the durable power assistant county attorney for healthcare. The patient desires to be a full code but does not want to be in a vegetative state on a ventilator. Patient is retired from working for the [employer]. He had a son and a daughter but his daughter with the scleroderma. Patient does not use any alcohol, marijuana, or illicit drugs. The patient stated that he quit smoking 40 years ago. The patient served in the [employer] in [employer] and suffers from exposure from agent orange. Smoking packs per day: 2 Smoking cigarettes per day: 40.0 Years smoked: 22 Smoking pack-years: 44.00 Smoking status: Former smoker Second hand tobacco smoke exposure: No Alcohol intake: never Substance use: never Do You Feel Safe in your Home?: Yes Lack of Transportation: No Lack of Food: Never True Current Housing: I Have Housing Concerned About Future Housing: No Difficulty Paying Gas/Electric Bills: No Difficulty Paying for Meds: No Currently Unemployed: No Education: High School Diploma/GED Difficulty w/ Childcare or Family Care: No Gender identity (if verbalized by the patient): Male Spiritual care concerns: No Meds Home Medications and Allergies Home Medications ?Medication ?Instructions ?Recorded ?Confirmed ?Type albuterol sulfate 90 mcg/actuation 2 puff inhalation QID PRN 09/03/20 06/25/24 History aerosol inhaler Shortness Of Breath Or Wheezing aspirin 81 mg chewable tablet 81 mg PO DAILY 09/03/20 06/25/24 History atorvastatin 40 mg tablet 40 mg PO HS 09/03/20 06/25/24 History cholecalciferol (vitamin D3) 25 25 mcg PO DAILY 09/03/20 06/25/24 History mcg (1,000 unit) tablet cyanocobalamin (vitamin B-12) 1,000 mcg PO DAILY 09/03/20 06/25/24 History 1,000 mcg tablet ferrous sulfate 325 mg (65 mg 325 mg PO BID 09/03/20 06/25/24 History iron) tablet isosorbide mononitrate 10 mg tablet 15 mg PO BID 09/03/20 06/25/24 History magnesium oxide 400 mg PO DAILY 09/03/20 06/25/24 History pantoprazole 40 mg tablet,delayed 40 mg PO QAM 09/03/20 06/25/24 History release (Protonix) tamsulosin 0.4 mg capsule (Flomax) 0.4 mg PO .pm 09/03/20 06/25/24 History tiotropium bromide 2.5 2 puff inhalation DAILY 09/03/20 06/25/24 History mcg/actuation mist for inhalation bumetanide 1 mg tablet 1 mg PO BID #60 tabs 09/08/20 06/25/24 Rx metolazone 2.5 mg tablet 2.5 mg PO WEEKLY #30 tabs 09/08/20 06/25/24 Rx nitroglycerin 0.4 mg sublingual 0.4 mg sublingual Q5MIN PRN Chest 09/08/20 06/25/24 Rx tablet (Nitrostat) Pain #25 tabs atropine sulfate (PF) 1 % eye 1 drp RIGHT EYE .Q12HR 06/10/24 06/25/24 History drops in a dropperette budesonide 160 mcg-glycopyr 9 2 inh inhalation .Q12HR 06/10/24 06/25/24 History mcg-formot 4.8 mcg/actuation HFA inhaler (Breztri Aerosphere) calcitriol 0.25 mcg capsule 0.25 mcg PO 3XW 06/10/24 06/25/24 History diclofenac sodium 1 % topical gel 2 g topical QID PRN pain 06/10/24 06/25/24 History finasteride 5 mg tablet 5 mg PO DAILY 06/10/24 06/25/24 History folic acid 1 mg tablet 1 mg PO DAILY 06/10/24 06/25/24 History guaifenesin 400 mg tablet 400 mg PO Q4H PRN cough 06/10/24 06/25/24 History (G-Fenesin) metoprolol succinate 25 mg 25 mg PO QAM 06/10/24 06/25/24 History tablet,extended release 24 hr (Toprol XL) prednisolone acetate (PF) 1 % eye 1 drp RIGHT EYE Q12H 06/10/24 06/25/24 History drops,suspension pregabalin 25 mg capsule 25 mg PO HS 06/10/24 06/25/24 History sitagliptin 25 mg tablet 25 mg PO DAILY 06/10/24 06/25/24 History acetaminophen 325 mg tablet 650 mg PO Q4-6H PRN pain 06/25/24 06/25/24 History furosemide 40 mg tablet 40 mg PO DAILY 06/25/24 06/25/24 History Allergies Allergy/AdvReac Type Severity Reaction Status Date / Time latex Allergy Unknown Rash Verified 06/25/24 06:09 lisinopril Allergy Unknown Unknown Verified 06/25/24 06:09 Vital Signs Vital Signs - 24 hr 06/29/24 12:00 06/29/24 12:00 06/29/24 12:00 Temperature 36.5 C Pulse Rate 63 Respiratory Rate Blood Pressure Pulse Oximetry 98 Oxygen Delivery Nasal Cannula Oxygen Flow Rate 2 Fraction of Inspired Oxygen 06/29/24 14:00 06/29/24 15:41 06/29/24 16:00 Temperature 36.4 C L Pulse Rate 59 L 60 59 L Respiratory Rate 18 22 H Blood Pressure 102/67 Pulse Oximetry 100 Oxygen Delivery Oxygen Flow Rate Fraction of Inspired Oxygen 06/29/24 16:00 06/29/24 16:00 06/29/24 18:00 Temperature Pulse Rate 60 60 Respiratory Rate Blood Pressure Pulse Oximetry 98 Oxygen Delivery Nasal Cannula Oxygen Flow Rate 2 Fraction of Inspired Oxygen 06/29/24 19:47 06/29/24 20:00 06/29/24 20:00 Temperature 36.6 C Pulse Rate 60 60 Respiratory Rate 19 Blood Pressure 118/45 L Pulse Oximetry 91 Oxygen Delivery BiPAP Oxygen Flow Rate Fraction of Inspired Oxygen 35 06/29/24 20:20 06/29/24 21:18 06/29/24 21:19 Temperature Pulse Rate 60 60 Respiratory Rate 23 H 23 H Blood Pressure Pulse Oximetry 99 96 Oxygen Delivery BiPAP BiPAP Oxygen Flow Rate Fraction of Inspired Oxygen 06/29/24 21:28 06/29/24 22:00 06/29/24 23:12 Temperature 36.8 C Pulse Rate 62 60 60 Respiratory Rate 23 H 18 Blood Pressure 101/44 L Pulse Oximetry 100 Oxygen Delivery Oxygen Flow Rate Fraction of Inspired Oxygen 06/30/24 00:00 06/30/24 02:00 06/30/24 02:55 Temperature Pulse Rate 60 60 Respiratory Rate 20 Blood Pressure Pulse Oximetry 100 97 Oxygen Delivery BiPAP BiPAP Oxygen Flow Rate Fraction of Inspired Oxygen 06/30/24 03:03 06/30/24 03:26 06/30/24 03:35 Temperature 37.0 C Pulse Rate 60 60 60 Respiratory Rate 20 20 18 Blood Pressure 105/44 L Pulse Oximetry 97 100 Oxygen Delivery BiPAP Oxygen Flow Rate Fraction of Inspired Oxygen 06/30/24 04:00 06/30/24 06:00 06/30/24 07:49 Temperature 36.6 C Pulse Rate 60 60 60 Respiratory Rate 16 Blood Pressure 99/44 L Pulse Oximetry 100 Oxygen Delivery Oxygen Flow Rate Fraction of Inspired Oxygen 06/30/24 08:00 06/30/24 08:00 06/30/24 09:00 Temperature Pulse Rate 60 62 Respiratory Rate 20 Blood Pressure Pulse Oximetry 98 98 Oxygen Delivery Nasal Cannula Nasal Cannula Oxygen Flow Rate 2 2 Fraction of Inspired Oxygen 06/30/24 09:00 06/30/24 09:15 06/30/24 09:29 Temperature Pulse Rate 60 60 60 Respiratory Rate 20 20 Blood Pressure Pulse Oximetry Oxygen Delivery Oxygen Flow Rate Fraction of Inspired Oxygen Exam Narrative: examination revealed him to be awake alert cooperative in no obvious acute distress, head normocephalic with no bruit, ear nose throat examination normal, neck supple with no cervical bruit no thyroid megaly no lymphadenopathy, heart regular, lungs with rhonchi or crepitation, abdomen soft nontender with normal bowel sounds, neurologically he is awake alert able to follow the verbal commands pupils round regular feels the vision for extraocular movements full face symmetrical tongue midline motor examination revealed generally Results Labs 07/01/24 04:35 07/01/24 04:35 Labs: Short CBC 06/30/24 Range/Units 04:20 WBC 5.5 (4.5-10.0) K/mm3 Hgb 8.4 L (14.0-18.0) g/dL Hct 27.3 L (42.0-52.0) % Plt Count 96 L (150-375) k/mm3 BMP 06/30/24 04:20 Sodium 131 L Potassium 5.3 H Chloride 90 L Carbon Dioxide 33 H BUN 114 H Creatinine 2.66 H Glucose 192 H Calcium 8.0 L Liver Function 06/30/24 Range/Units 04:20 Total Bilirubin 0.6 (0.2-1.3) mg/dL AST 17 (17-59) U/L ALT 11 (6-50) U/L Alkaline Phosphatase 70 (38-126) U/L Albumin 3.1 L (3.5-5.1) g/dL
[2024-06-30 16:12] LABS: Glucose Point of Care 323 mg/dl (65-105)
[2024-06-30] MEDS: INSULIN ASPART (*BKC) 100 UNITS/ML SUB-Q ×3 (17:53→20:38)
--- NOTE | 2024-06-30 18:10 | P.PNIM_ITS ---
Progress Note: A&P Assessment and Plan (1) Acute ischemic stroke: Code(s): I63.9 - Cerebral infarction, unspecified Status: Acute Assessment and Plan: * Head CT shown hypodensity in the left posterior temporal/occipital area suggestive of acute/subacute infarct with multiple hyperdensities which may be hemorrhagic areas * Head/neck CTA showed severe calcification of the carotid arteries 60% on the right side, bilateral pleural effusion with adjacent atelectasis versus pneumonia * MRI of the brain and brainstem ordered however patient has pacemaker * Continue Aspirin, lipitor * PT/OT/ST * neurology consulted (2) Acute and chronic respiratory failure with hypercapnia: Code(s): J96.22 - Acute and chronic respiratory failure with hypercapnia Status: Acute Assessment and Plan: * ABG showing a pH of 7.313, pCO2 61.6, bicarb 30.5, PO2 90.9 * Continue BiPAP * at baseline oxygen (3) CHF (congestive heart failure): Code(s): I50.9 - Heart failure, unspecified Status: Chronic Assessment and Plan: * ProBNP greater than 30,000, patient has 4+ pitting edema to bilateral lower extremities * Troponin 0.078> 0.078> 0.070--likely demand ischemia * Bumex 1 mg IV push given overnight * Last echocardiogram reviewed from 06/10/2024 which shown mildly reduced LV systolic function with an estimated EF of 40-45%, right ventricular systolic function is reduced, left and right atrial chamber severely enlarged, bioprosthetic valve appears to be well seated, pulmonary hypertension with an estimated pulmonary arterial systolic pressure of 66 mmHg * Initial chest x-ray shown bilateral basal atelectasis versus pneumonia with bilateral pleural effusion, cardiomegaly with cardiac decompensation and pulmonary edema * Will repeat chest x-ray this morning * Continue metoprolol * Continue IV diuresis with Lasix 40 mg BID (4) Elevated d-dimer: Code(s): R79.89 - Other specified abnormal findings of blood chemistry Status: Acute Assessment and Plan: * D-dimer 1.9 * Will get V/Q scan negative for PE * Venous Doppler LE, negative (5) DM2 (diabetes mellitus, type 2): Code(s): E11.9 - Type 2 diabetes mellitus without complications Status: Chronic Assessment and Plan: * Blood sugars ranging 175-230 * Hgb A1C 5.4 on 09/03/2020 * Will recheck hemoglobin A1c * Accu checks AC/HS * High-dose SSI ordered * hypoglycemic protocol in place * Diabetic diet and 2 g sodium diet ordered (6) COPD (chronic obstructive pulmonary disease): Code(s): J44.9 - Chronic obstructive pulmonary disease, unspecified Status: Chronic Assessment and Plan: * DuoNebs ordered q.6 hour (7) Hypertension: Code(s): I10 - Essential (primary) hypertension Status: Chronic Assessment and Plan: * Blood pressure ranging 102/54 to 118/72 * Continue isosorbide (8) CAD (coronary artery disease): Code(s): I25.10 - Atherosclerotic heart disease of [place] coronary artery without angina pectoris Status: Chronic Assessment and Plan: * Status post CABG x5 vessel * Continue atorvastatin (9) Pacemaker: Code(s): Z95.0 - Presence of cardiac pacemaker Status: Acute Assessment and Plan: * Ventricular pacemaker in place * EKG showed electronic ventricular pacemaker with a rate of 65, QTC 517 (10) BPH (benign prostatic hyperplasia): Code(s): N40.0 - Benign prostatic hyperplasia without lower urinary tract symptoms Status: Chronic Assessment and Plan: * Continue finasteride and tamsulosin (11) Chronic anemia: Code(s): D64.9 - Anemia, unspecified Status: Chronic Assessment and Plan: * Hemoglobin 9.4-->8.4 * Appears to be chronic * Continue ferrous sulfate * iron panel ordered (12) Sleep apnea: Code(s): G47.30 - Sleep apnea, unspecified Status: Chronic Assessment and Plan: * Patient currently requiring BiPAP due to hypercapnia Plan CHRISTIAN on CKD Cr 2.66 baseline is about 1.6 Adjust diuresis and monitor DVT prophylaxis on SCDs Subjective Date/time seen: 06/30/24 18:10 Interval history: Comfortable at bedside Awiating neurology eval today Review of Systems Review of Systems: All systems reviewed & are unremarkable except as noted in HPI and below Exam Narrative: General: In no acute distress, well nourished Head: atraumatic, no encephalopathy Eyes: PERRLA, sclera clear ENT: moist mucous membranes, nasal passages clear Neck: supple, no JVD, no adenopathy, trachea midline Cardiac: Normal S1 and S2. No murmur, gallops or friction rubs, peripheral pulses intact. Respiratory:Inspiratory and expiratory wheezing, no other adventitious lung sounds, currently on nasal cannula with use of accessory muscles and acute respiratory distress. Gastrointestinal: soft, non-distended, non-tender, normoactive bowel sounds. : voiding without difficulty. 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 No wounds or lesions. Neuro: Alert and oriented x4, cranial nerves intact, LUE weakness Psych: normal mood, normal affect, interactive Objective Data Vital Signs Vital Signs: Vital Signs - 24 hr 06/29/24 19:47 06/29/24 20:00 06/29/24 20:00 Temperature 97.9 F Pulse Rate 60 60 Respiratory Rate 19 Blood Pressure 118/45 L Pulse Oximetry 91 Oxygen Delivery BiPAP Oxygen Flow Rate Fraction of Inspired Oxygen 35 06/29/24 20:20 06/29/24 21:18 06/29/24 21:19 Temperature Pulse Rate 60 60 Respiratory Rate 23 H 23 H Blood Pressure Pulse Oximetry 99 96 Oxygen Delivery BiPAP BiPAP Oxygen Flow Rate Fraction of Inspired Oxygen 06/29/24 21:28 06/29/24 22:00 06/29/24 23:12 Temperature 98.2 F Pulse Rate 62 60 60 Respiratory Rate 23 H 18 Blood Pressure 101/44 L Pulse Oximetry 100 Oxygen Delivery Oxygen Flow Rate Fraction of Inspired Oxygen 06/30/24 00:00 06/30/24 02:00 06/30/24 02:55 Temperature Pulse Rate 60 60 Respiratory Rate 20 Blood Pressure Pulse Oximetry 100 97 Oxygen Delivery BiPAP BiPAP Oxygen Flow Rate Fraction of Inspired Oxygen 06/30/24 03:03 06/30/24 03:26 06/30/24 03:35 Temperature 98.6 F Pulse Rate 60 60 60 Respiratory Rate 20 20 18 Blood Pressure 105/44 L Pulse Oximetry 97 100 Oxygen Delivery BiPAP Oxygen Flow Rate Fraction of Inspired Oxygen 06/30/24 04:00 06/30/24 06:00 06/30/24 07:49 Temperature 97.8 F Pulse Rate 60 60 60 Respiratory Rate 16 Blood Pressure 99/44 L Pulse Oximetry 100 Oxygen Delivery Oxygen Flow Rate Fraction of Inspired Oxygen 06/30/24 08:00 06/30/24 08:00 06/30/24 09:00 Temperature Pulse Rate 60 62 Respiratory Rate 20 Blood Pressure Pulse Oximetry 98 98 Oxygen Delivery Nasal Cannula Nasal Cannula Oxygen Flow Rate 2 2 Fraction of Inspired Oxygen 06/30/24 09:00 06/30/24 09:15 06/30/24 09:29 Temperature Pulse Rate 60 60 60 Respiratory Rate 20 20 Blood Pressure Pulse Oximetry Oxygen Delivery Oxygen Flow Rate Fraction of Inspired Oxygen 06/30/24 10:00 06/30/24 12:00 06/30/24 12:00 Temperature Pulse Rate 61 60 Respiratory Rate Blood Pressure Pulse Oximetry 97 Oxygen Delivery Nasal Cannula Oxygen Flow Rate 2 Fraction of Inspired Oxygen 06/30/24 12:00 06/30/24 14:00 06/30/24 14:27 Temperature 97.8 F Pulse Rate 60 62 60 Respiratory Rate 22 H 20 Blood Pressure 113/46 L Pulse Oximetry 99 Oxygen Delivery Oxygen Flow Rate Fraction of Inspired Oxygen 06/30/24 14:38 06/30/24 16:00 06/30/24 16:00 Temperature Pulse Rate 65 60 Respiratory Rate 20 Blood Pressure Pulse Oximetry 97 Oxygen Delivery Nasal Cannula Oxygen Flow Rate 2 Fraction of Inspired Oxygen 06/30/24 16:00 Temperature 97.8 F Pulse Rate 60 Respiratory Rate 22 H Blood Pressure 117/44 L Pulse Oximetry 100 Oxygen Delivery Oxygen Flow Rate Fraction of Inspired Oxygen Intake/Output Intake/Output: Intake & Output 06/27/24 06/28/24 06/29/24 06/30/24 23:59 23:59 23:59 23:59 Intake Total 1825 192 841 4625 Output Total 600 900 450 500 Balance 1225 30 450 1031 Meds/Results Medications: Active Medications Generic Name Dose Route Start Last Admin Trade Name Freq PRN Reason Stop Dose Admin Acetaminophen 650 mg 06/25/24 23:05 Acetaminophen 325 Mg Tablet PO Q4H PRN Mild Pain (1-3) or Fever Albuterol/Ipratropium 3 ml 06/26/24 02:00 06/30/24 14:25 Ipratropium 0.5 Mg/Albuterol Sulfate 2.5 Mg Ampul.Neb 3 Ml INHALATION 3 ml Q6HRT WARD Administration Atorvastatin Calcium 40 mg 06/25/24 23:10 06/29/24 20:48 Atorvastatin 40 Mg Tablet PO 40 mg HS WARD Administration Cyanocobalamin 1,000 mcg 06/26/24 09:00 06/30/24 09:29 Cyanocobalamin 1,000 Mcg Tablet PO 1,000 mcg DAILY WARD Administration Dextrose 12.5 gm 06/26/24 04:23 Dextrose 50% 25 Gm/50 Ml Syringe IV PUSH PRN PRN Hypoglycemia Protocol Ferrous Sulfate 325 mg 06/26/24 09:00 06/30/24 09:29 Ferrous Sulfate [address] PO 325 mg BID WARD Administration Finasteride 5 mg 06/26/24 09:00 06/30/24 09:29 Finasteride 5 Mg Tablet PO 5 mg DAILY WARD Administration Folic Acid 1 mg 06/26/24 09:00 06/30/24 09:29 Folic Acid 1 Mg Tablet PO 1 mg DAILY WARD Administration Furosemide 40 mg 06/26/24 09:00 06/27/24 13:07 Furosemide Inj 40 Mg/4 Ml Vial IV PUSH Not Given BID WARD Glucagon 1 mg 06/26/24 04:23 Glucagon For Inj 1 Mg Vial IM PRN PRN Hypoglycemia Protocol Glucose 15 gm 06/26/24 04:23 Glucose Oral Gel 15 Gm Of Glucse In 37.5 Gm Tube PO PRN PRN Hypoglycemia Protocol Dextrose 1,000 mls @ 100 mls/hr 06/26/24 04:23 Dextrose 5% 1,000 Ml IVPB PRN PRN Hypoglycemia Protocol Insulin Aspart 4 - 8 units 06/26/24 08:00 06/30/24 17:53 Insulin Aspart (*Bkc) 100 Units/Ml SUB-Q 6 units TIDWM WARD Administration Protocol Insulin Aspart 2 - 4 units 06/26/24 21:00 06/29/24 20:54 Insulin Aspart (*Bkc) 100 Units/Ml SUB-Q 2 units HS WARD Administration Protocol Insulin Glargine 8 units 06/28/24 21:00 06/29/24 20:53 Insulin Glargine (*Bkc) 100 Units/Ml SUB-Q 8 units HS WARD Administration Isosorbide Mononitrate 15 mg 06/26/24 09:00 06/30/24 09:30 Isosorbide Mononitrate 10 Mg Tablet PO 15 mg BID@0900,1600 WARD Administration Metoprolol Succinate 25 mg 06/26/24 09:00 06/30/24 09:29 Metoprolol Succinate Ext Rel 25 Mg Tabcr PO 25 mg QAM WARD Administration Ondansetron HCl 4 mg 06/25/24 23:05 Ondansetron Inj 4 Mg/2 Ml Vial IV PUSH Q6H PRN Nausea And Vomiting Pantoprazole Sodium 40 mg 06/26/24 09:00 06/30/24 09:29 Pantoprazole 40 Mg Tablet PO 40 mg QAM WARD Administration Pregabalin 25 mg 06/26/24 21:00 06/29/24 20:48 Pregabalin (*Crx) 25 Mg Capsule PO 25 mg HS WARD Administration Tamsulosin HCl 0.4 mg 06/25/24 23:10 06/29/24 20:48 Tamsulosin Hcl 0.4 Mg Capsule PO 0.4 mg QHS WARD Administration Vitamin D 1,000 units 06/26/24 09:00 06/30/24 09:29 Cholecalciferol 1,000 Units Tablet PO 1,000 units DAILY WARD Administration Radiology Results: ITS Impressions Head CT 06/24/24 18:31 IMPRESSION: Hypodensity in the left posterior temporal/occipital area which is suggestive of acute/subacute infarct with multiple hyperdensities which may be hemorrhagic areas. Calcification is less likely. MRI evaluation is advised. Physician: Manav Duarte MD Was notified with the result of the patient at time 6:45 PM on June 24, 2024. Head/Neck CTA 06/24/24 19:43 IMPRESSION: 1. Nonvisualization of the distal left posterior cerebral artery. Otherwise normal CTA of the head. 2. CTA of the neck. Shows severe calcification of the carotid arteries. Percent stenosis per NASCET criteria is 60% on the right side. 3. Bilateral pleural effusion with adjacent atelectasis versus pneumonia. Chest X-Ray 06/26/24 05:51 IMPRESSION: 1. Stable airspace opacities in the mid and lower lung zones, consistent with atelectasis versus pneumonia. 2. Small pleural effusions. 3. Cardiomegaly. Venous Doppler Study 06/26/24 12:46 IMPRESSION: 1. No deep venous thrombosis. Pulmonary Perfusion Imaging 06/26/24 13:58 IMPRESSION: 1. No immediate probability for pulmonary embolism. Labs Labs: Laboratory Results - last 24 hr 06/29/24 06/29/24 06/30/24 15:45 19:50 04:20 WBC 5.5 RBC 2.75 L Hgb 8.4 L Hct 27.3 L MCV 99.3 MCH 30.5 MCHC 30.8 L RDW 15.5 H Plt Count 96 L MPV 10.1 Immature Gran % (Auto) 0.7 H Neut % (Auto) 86.1 H Lymph % (Auto) 6.3 L [place] % (Auto) 6.0 Eos % (Auto) 0.7 Baso % (Auto) 0.2 Lymph # (Auto) 0.35 L [place] # (Auto) 0.3 Eos # (Auto) 0.0 Baso # (Auto) 0.0 Abs Immat Gran (auto) 0.04 H Absolute Neuts (auto) 4.8 Absolute Nucleated RBC 0.000 Nucleated RBC % 0.0 % Immature Plt Fraction 3.1 Sodium 131 L Potassium 5.3 H Chloride 90 L Carbon Dioxide 33 H Anion Gap 8 BUN 114 H Creatinine 2.66 H Estim Creat Clear Calc 22 Estimated GFR 23 L Glucose 192 H POC Capillary Glucose 249 H 286 H Calcium 8.0 L Total Bilirubin 0.6 AST 17 ALT 11 Alkaline Phosphatase 70 Total Protein 6.0 L Albumin 3.1 L 06/30/24 06/30/24 06/30/24 07:24 11:16 16:07 WBC RBC Hgb Hct MCV MCH MCHC RDW Plt Count MPV Immature Gran % (Auto) Neut % (Auto) Lymph % (Auto) [place] % (Auto) Eos % (Auto) Baso % (Auto) Lymph # (Auto) [place] # (Auto) Eos # (Auto) Baso # (Auto) Abs Immat Gran (auto) Absolute Neuts (auto) Absolute Nucleated RBC Nucleated RBC % % Immature Plt Fraction Sodium Potassium Chloride Carbon Dioxide Anion Gap BUN Creatinine Estim Creat Clear Calc Estimated GFR Glucose POC Capillary Glucose 176 H 276 H 323 H Calcium Total Bilirubin AST ALT Alkaline Phosphatase Total Protein Albumin Quality VTE Prophylaxis VTE prophylaxis: mechanical ordered
[2024-06-30 19:52] LABS: Glucose Point of Care 305 mg/dl (65-105)
[2024-06-30] MEDS: ATORVASTATIN 40 MG TABLET PO (20:37)
[2024-06-30] MEDS: TAMSULOSIN HCL 0.4 MG CAPSULE PO (20:37)
[2024-06-30] MEDS: PREGABALIN (*CRX) 25 MG CAPSULE PO (20:37)
[2024-06-30] MEDS: INSULIN GLARGINE (*BKC) 100 UNITS/ML 8 UNITS SUB-Q (20:38)
[2024-07-01] VITALS (24 sets, daily range): BP systolic 98–108; BP diastolic 40–47; PULSE 60–67; RESP 18–23; TEMP 36.3–36.7; O2SAT 94–100
[2024-07-01] MEDS: IPRATROPIUM 0.5 MG/ALBUTEROL SULFATE 2.5 MG AMPUL.NEB 3 ML INHALATION ×4 (02:21→19:42)
[2024-07-01 04:53] LABS: Basophils Percent Auto 0.2 % (0.2-1.2); Eosinophils Percent Auto 0.6 % (0-4.4); Hematocrit 27.4 % (42.0-52.0); Hemoglobin 8.4 g/dL (14.0-18.0); Immature Granulocyte Absolute 0.03 K/mm3 (0.00-0.031); Immature Granulocyte Percent A 0.6 % (0-0.5); Immature Platelet Fraction Pct 3.8 % (0.9-11.2); Lymphocytes Absolute Auto 0.32 K/mm3 (0.9-3.2); Lymphocytes Percent Auto 6.1 % (18.3-44.2); Mean Corpuscular HGB Conc 30.7 g/dl (32-36); Mean Corpuscular Hemoglobin 30.5 pg (26-34); Mean Corpuscular Volume 99.6 fl (80-100); Mean Platelet Volume 10.7 fl (7.4-10.4); Monocytes Absolute Auto 0.3 K/mm3 (0.1-0.6); Monocytes Percent Auto 6.1 % (2.6-8.5); Neutrophils Absolute Auto 4.6 K/mm3 (1.3-6.7); Neutrophils Percent Auto 86.4 % (45.5-73.1); Platelet Count Result 92 k/mm3 (150-375); Red Blood Count 2.75 M/mm3 (4.6-6.20); Red Cell Distribution Width 15.6 % (11.5-14.5); White Blood Count 5.3 K/mm3 (4.5-10.0)
[2024-07-01 05:18] LABS: Alanine Aminotransferase 12 U/L (6-50); Albumin Level 3.2 g/dL (3.5-5.1); Alkaline Phosphatase 82 U/L (38-126); Anion Gap 9 mmol/L (4-12); Aspartate Amino Transferase 19 U/L (17-59); Bilirubin,Total 0.6 mg/dL (0.2-1.3); Blood Urea Nitrogen 111 mg/dL (9-20); Calcium 8.2 mg/dL (8.4-10.2); Carbon Dioxide 32 mmol/L (22-30); Chloride 89 mmol/L (98-107); Estimated CRCL calculation 23 ml/min; Estimated Glomerular Filt Rate 25; Glucose 223 mg/dL (65-110); Magnesium 2.7 mg/dL (1.6-2.3); Potassium 5.8 mmol/L (3.4-5.0); Sodium 130 mmol/L (137-145)
[2024-07-01 05:25] LABS: Band Neutrophils Percent 0 % (0-6); Ovalocytes 1+; Platelet Estimate Decreased (Adequate)
[2024-07-01 05:26] LABS: Schistocytes None Seen
[2024-07-01 05:35] LABS: Iron 39 ug/dL (49-181)
[2024-07-01 05:44] LABS: Percent Iron Saturation 15 % (20-50)
[2024-07-01 07:31] LABS: Glucose Point of Care 224 mg/dl (65-105)
[2024-07-01] MEDS: INSULIN ASPART (*BKC) 100 UNITS/ML SUB-Q ×4 (09:41→20:42)
[2024-07-01] MEDS: FINASTERIDE 5 MG TABLET PO (09:41)
[2024-07-01] MEDS: METOPROLOL SUCCINATE EXT REL 25 MG TABCR PO (09:41)
[2024-07-01] MEDS: CYANOCOBALAMIN 1,000 MCG TABLET 1000 MCG PO (09:42)
[2024-07-01] MEDS: CHOLECALCIFEROL 1,000 UNITS TABLET 1000 UNITS PO (09:42)
[2024-07-01] MEDS: PANTOPRAZOLE 40 MG TABLET PO (09:42)
[2024-07-01] MEDS: FERROUS SULFATE 325 MG TABLET DR PO ×2 (09:42→16:55)
[2024-07-01] MEDS: FOLIC ACID 1 MG TABLET PO (09:42)
[2024-07-01 11:32] LABS: Glucose Point of Care 244 mg/dl (65-105)
[2024-07-01] MEDS: FUROSEMIDE INJ 40 MG/4 ML VIAL IV PUSH (12:13)
[2024-07-01] MEDS: SODIUM ZIRCONIUM CYCLOSILICATE 10 GM POWD.PACK PO (12:13)
--- NOTE | 2024-07-01 13:01 | P.CONNP_ITS ---
Assessment and Plan Assessment and plan (1) Acute kidney injury: Code(s): N17.9 - Acute kidney failure, unspecified Status: Acute Assessment and Plan: * noted on admission * suspect due to several issues: * volume overload * infection (UTI) * previous IV diuresis * outpatient diuretics prior to admission * hypoxia * relative hypotension * contrast exposure (although creatinine elevated even prior to this...) * concerning that creatinine continues to worsen in association with hyperkalemia * remains at risk for [employer]/dialysis (which has been discussed before by his [facility] physician according to ....) * follow trend of repeat labs and UOP (2) Chronic kidney disease, stage IV (severe): Code(s): N18.4 - Chronic kidney disease, stage 4 (severe) Status: Chronic Assessment and Plan: * baseline creatinine runs ~ 1.8 - 2.3mg/dl (from review of [facility] records) * however, given his multiple admissions for volume overload/acute hypoxic respiratory failure and the need for diuresis, his creatinine has been as high as 3.8mg/dl * furthermore, he tend have significant azotemia with BUNs running in the 100s+ range * due to hypertension, diabetes, CHF/cardiomyopathy with necessity of chronic diuretic therapy, vascular disease and age-related change * follows with Nephrology at [facility] * according to his , there have been ongoing discussions about dialysis with his palliative care team at [facility] - unclear if formal decision has been made (3) Acute and chronic respiratory failure with hypercapnia: Code(s): J96.22 - Acute and chronic respiratory failure with hypercapnia Status: Acute Assessment and Plan: * due to combo of CHF and COPD complicated by his AFUA * on BiPAP therapy PRN and IV steroids * was previously on IV diuretics but on hold due to #1 * DNI (4) CHF (congestive heart failure): Code(s): I50.9 - Heart failure, unspecified Status: Chronic Assessment and Plan: * known history * Echo (06/10) noted: * left ventricular systolic function is mildly reduced - estimated at 40-45% * right ventricular systolic function is reduced * bioprosthetic valve appears to be well-seated. Leaflets not well visualized. Peak velocity of 2.5m/s, mean gradient of 13mmHg * no aortic valve regurgitation * mitral valve annulus is severely calcified * mitral valve has thickened leaflets * mild mitral valve regurgitation * moderate tricuspid valve regurgitation * pulmonary hypertension, estimated pulmonary arterial systolic pressure is 66 mmHg * IV diuretics on hold due to #1 * CXR results noted (5) COPD (chronic obstructive pulmonary disease): Code(s): J44.9 - Chronic obstructive pulmonary disease, unspecified Status: Chronic Assessment and Plan: * exacerbation suspected on admission * follow ABGs * BiPAP as needed * on nebulizers/bronchodilators and IV steroids * continue supportive therapy (6) Acute ischemic stroke: Code(s): I63.9 - Cerebral infarction, unspecified Status: Acute Assessment and Plan: * head CT shown hypodensity in the left posterior temporal/occipital area suggestive of acute/subacute infarct with multiple hyperdensities which may be hemorrhagic areas * head/neck CTA showed severe calcification of the carotid arteries 60% on the right side, bilateral pleural effusion with adjacent atelectasis versus pneumonia * unable to do MRI brain due to pacemaker * Neurololgy following with recommendations * continue PT/OT/ST (7) Sleep apnea: Code(s): G47.30 - Sleep apnea, unspecified Status: Chronic Assessment and Plan: * known history * was not using CPAP machine before admission * BIPAP when resting during the day and at night * noted issues with CO2 retention by ABGs (8) Chronic anemia: Code(s): D64.9 - Anemia, unspecified Status: Chronic Assessment and Plan: * suspect related to CHRISTIAN, CKD, and acute illness * anemia studies also note iron deficiency * on oral iron * s/p IV venofer * follow trend of H/H (9) Hypertension: Code(s): I10 - Essential (primary) hypertension Status: Chronic Assessment and Plan: * reasonable control * follow trend of hemodynamics (10) DM2 (diabetes mellitus, type 2): Code(s): E11.9 - Type 2 diabetes mellitus without complications Status: Chronic Assessment and Plan: * follow accu-cheks * glycemic control per hospitalist Long and extensive discussion (> 20 minutes) with patient's at bedside regarding his renal failure/chronic kidney disease -- she is aware of his advanced kidney disease at baseline as [facility] up this issue before given his other multiple medical issues; he also follows with palliative care at the [place] as well and has been having ongoing discussion regarding dialysis in general and if this is a therapy he would be willing to do (not sure if a formal decision has ever been made). I will continue to follow the patient with you while he remains hospitalized and make further recommendations as deemed necessary. Thank you for allowing me to participate in the care of this patient. L History of Present Illness Reason for Consult Consult date: 07/01/24 Reason for consult: acute renal failure (on chronic kidney disease) Chief Complaint Chief complaint: Acute ischemic stroke History of Present Illness Narrative: The patient is an 84-year-old male with extensive past medical history who presented to [facility] Emergency Room for altered mental status. Apparently, the patient is found by staff members at his nursing facility be somewhat somnolent and minimally arousable to both verbal and painful stimuli. As this was a significant change from his baseline normal mentation, EMS was summoned for further assistance. Upon EMS arrival, the patient apparently did improve clinically with more aggressive stimulation and it seemed like his mentation was back to baseline. Nonetheless, he was transferred to the emergency room for further assessment of this change in his clinical status. Workup and evaluation in emergency rooms demonstrated the patient be hemodynamically stable and in no apparent distress. A CT scan of his head showed a hyperdensity in the left posterior is temporal/occipital area which is suggestive acute / subacute infarct with multiple hyperdensities which may be hemorrhagic areas. A subsequent head/neck CTA was significant for severe calcification of the carotid arteries with demonstration bilateral pleural effusions with adjacent atelectasis versus pneumonia. His chest x-ray showed bilateral bibasilar atelectasis versus pneumonia with effusions cardiomegaly with cardiac decompensation and pulmonary edema. Routine blood tests were significant for white blood cell count of 5.0, hemoglobin 9 point platelet count of 131 and a chemistry with a creatinine of 2.49, sodium 129, with an associated GFR of 20. His UA was somewhat suggestive of urinary tract infection as well this EKG showed ventricular paced rhythm but his ABG showed evidence CO2 retention. He was initiated on BiPAP therapy as well as IV diuretics along IV antibiotics for possible pneumonia and urinary tract infection. After appropriate cultures were obtained. Given his pacemaker, an MRI was unable to be done there was an attempt to transfer him to [facility] given no beds were available, he was admitted to [facility] further evaluation and therapy Since his admission, he has been seen in consultation by Neurology was recommended ongoing conservative therapy at this time. His mentation seems to be doing somewhat better in general. Unfortunately, despite treatment of his CHF and COPD his renal function has been deteriorating. Renal consultation was record due to his acute kidney injury/ acute renal failure top his baseline chronic kidney disease. The patient has known and significant chronic kidney disease has followed his physicians at the [facility] for management of this issue. His baseline creatinine seems to run around 1.8-2.3 mg/dL at its best but from review his many hospitalizations at the [facility], his creatinine has been pushed to extremes due to the necessity of IV diuretics to optimize his volume status and has had creatinine is running in the 3ish range in the past. His reports to me that the issue of dialysis has been discussed in the past but he has never actually required it despite his fluctuating kidney function. Currently, at the time my evaluation, he does not appear to be in any acute distress. Review of Systems 2 Review of Systems: As per HPI. 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 Chronic anemia Chronic renal failure, stage 3 (moderate) Chronic respiratory failure with hypoxia He wears oxygen at 2 L per nasal cannula Hypertension Sleep apnea The patient no longer uses and CPAP machine CAD (coronary artery disease) Pacemaker CHF (congestive heart failure) COPD (chronic obstructive pulmonary disease) Surgical History Surgical History H/O cystoscopy With bladder biopsy S/P CABG x 5 S/P heart valve repair Stented coronary artery X1 Family History Family History Daughter Scleroderma Social History Social History Social History: The patient lives with his who is the durable power advertising dispatch clerk for healthcare. The patient desires to be a full code but does not want to be in a vegetative state on a ventilator. Patient is retired from working for the [employer]. He had a son and a daughter but his daughter with the scleroderma. Patient does not use any alcohol, marijuana, or illicit drugs. The patient stated that he quit smoking 40 years ago. The patient served in the [employer] in [place] and suffers from exposure from agent orange. Smoking packs per day: 2 Smoking cigarettes per day: 40.0 Years smoked: 22 Smoking pack-years: 44.00 Smoking status: Former smoker Second hand tobacco smoke exposure: No Alcohol intake: never Substance use: never Do You Feel Safe in your Home?: Yes Lack of Transportation: No Lack of Food: Never True Current Housing: I Have Housing Concerned About Future Housing: No Difficulty Paying Gas/Electric Bills: No Difficulty Paying for Meds: No Currently Unemployed: No Education: High School Diploma/GED Difficulty w/ Childcare or Family Care: No Gender identity (if verbalized by the patient): Male Spiritual care concerns: No Meds Home Medications and Allergies Home Medications ?Medication ?Instructions ?Recorded ?Confirmed ?Type albuterol sulfate 90 mcg/actuation 2 puff inhalation QID PRN 09/03/20 06/25/24 History aerosol inhaler Shortness Of Breath Or Wheezing aspirin 81 mg chewable tablet 81 mg PO DAILY 09/03/20 06/25/24 History atorvastatin 40 mg tablet 40 mg PO HS 09/03/20 06/25/24 History cholecalciferol (vitamin D3) 25 25 mcg PO DAILY 09/03/20 06/25/24 History mcg (1,000 unit) tablet cyanocobalamin (vitamin B-12) 1,000 mcg PO DAILY 09/03/20 06/25/24 History 1,000 mcg tablet ferrous sulfate 325 mg (65 mg 325 mg PO BID 09/03/20 06/25/24 History iron) tablet isosorbide mononitrate 10 mg tablet 15 mg PO BID 09/03/20 06/25/24 History magnesium oxide 400 mg PO DAILY 09/03/20 06/25/24 History pantoprazole 40 mg tablet,delayed 40 mg PO QAM 09/03/20 06/25/24 History release (Protonix) tamsulosin 0.4 mg capsule (Flomax) 0.4 mg PO .pm 09/03/20 06/25/24 History tiotropium bromide 2.5 2 puff inhalation DAILY 09/03/20 06/25/24 History mcg/actuation mist for inhalation bumetanide 1 mg tablet 1 mg PO BID #60 tabs 09/08/20 06/25/24 Rx metolazone 2.5 mg tablet 2.5 mg PO WEEKLY #30 tabs 09/08/20 06/25/24 Rx nitroglycerin 0.4 mg sublingual 0.4 mg sublingual Q5MIN PRN Chest 09/08/20 06/25/24 Rx tablet (Nitrostat) Pain #25 tabs atropine sulfate (PF) 1 % eye 1 drp RIGHT EYE .Q12HR 06/10/24 06/25/24 History drops in a dropperette budesonide 160 mcg-glycopyr 9 2 inh inhalation .Q12HR 06/10/24 06/25/24 History mcg-formot 4.8 mcg/actuation HFA inhaler (Breztri Aerosphere) calcitriol 0.25 mcg capsule 0.25 mcg PO 3XW 06/10/24 06/25/24 History diclofenac sodium 1 % topical gel 2 g topical QID PRN pain 06/10/24 06/25/24 History finasteride 5 mg tablet 5 mg PO DAILY 06/10/24 06/25/24 History folic acid 1 mg tablet 1 mg PO DAILY 06/10/24 06/25/24 History guaifenesin 400 mg tablet 400 mg PO Q4H PRN cough 06/10/24 06/25/24 History (G-Fenesin) metoprolol succinate 25 mg 25 mg PO QAM 06/10/24 06/25/24 History tablet,extended release 24 hr (Toprol XL) prednisolone acetate (PF) 1 % eye 1 drp RIGHT EYE Q12H 06/10/24 06/25/24 History drops,suspension pregabalin 25 mg capsule 25 mg PO HS 06/10/24 06/25/24 History sitagliptin 25 mg tablet 25 mg PO DAILY 06/10/24 06/25/24 History acetaminophen 325 mg tablet 650 mg PO Q4-6H PRN pain 06/25/24 06/25/24 History furosemide 40 mg tablet 40 mg PO DAILY 06/25/24 06/25/24 History Allergies Allergy/AdvReac Type Severity Reaction Status Date / Time latex Allergy Unknown Rash Verified 06/25/24 06:09 lisinopril Allergy Unknown Unknown Verified 06/25/24 06:09 Vital Signs Vital Signs Temp Pulse Resp BP Pulse Ox O2 Del Method O2 Flow Rate 07/01/24 12:50 Nasal Cannula 2 07/01/24 12:00 60 07/01/24 11:44 97.8 F 60 20 98/42 L 100 07/01/24 10:17 Nasal Cannula 2 07/01/24 10:00 60 07/01/24 09:41 61 07/01/24 08:59 99 Nasal Cannula 2 07/01/24 08:54 61 20 07/01/24 08:40 60 21 H 07/01/24 08:00 60 07/01/24 07:42 98.0 F 67 19 104/47 L 100 07/01/24 06:00 60 07/01/24 04:00 60 07/01/24 04:00 96 BiPAP 07/01/24 03:37 97.3 F L 60 18 108/47 L 100 07/01/24 02:23 61 23 H 07/01/24 02:23 61 23 H 99 BiPAP 07/01/24 02:00 60 07/01/24 00:00 60 07/01/24 00:00 99 BiPAP 06/30/24 23:31 97.8 F 60 18 92/38 L 99 06/30/24 22:00 60 06/30/24 20:27 60 20 06/30/24 20:27 60 20 99 BiPAP 06/30/24 20:00 60 06/30/24 20:00 97 Nasal Cannula 2 06/30/24 19:45 97.9 F 60 20 116/53 L 97 06/30/24 18:00 60 Exam 2 Narrative: GENERAL APPEARANCE: elderly but well developed well nourished male in no acute distress HEENT: normocephalic, atraumatic, normal conjunctiva and sclera, nares patient NECK: no lymphadenopathy, thyromegaly, or JVD MOUTH: normal lips, teeth, and gums CARDIOVASCULAR: RRR, normal S1 and S2, no rub detected RESPIRATORY: coarse breath sounds with few scattered wheezes ABDOMEN: soft, nontender, nondistended, positive bowel sounds present EXTREMITIES: no evidence of cyanosis, clubbing, 3+ edema NEUROLOGICAL: alert and oriented x 3; CN II - XII intact bilaterally; generalized weakness present Results Lab Results 07/04/24 04:10 07/04/24 04:10 Lab results: Most recent lab results ABG pH 7.313 (7.350-7.450) L 06/25/24 23:27 ABG pCO2 61.6 mmHg (35.0-45.0) H* 06/25/24 23: ABG pO2 90.9 mmHg (80.0-100.0) 06/25/24 23: ABG HCO3 30.5 mEq/l (22.0-26.0) H 06/25/24 23: ABG O2 Saturation 96.1 % (95.0-100.0) 06/25/24 23:27 Calcium 8.2 mg/dL (8.4-10.2) L 07/01/24 04:35 Magnesium 2.7 mg/dL (1.6-2.3) H 07/01/24 04:35
--- NOTE | 2024-07-01 14:47 | P.PNIM_ITS ---
Progress Note: A&P Assessment and Plan (1) Acute ischemic stroke: Code(s): I63.9 - Cerebral infarction, unspecified Status: Acute Assessment and Plan: * Head CT shown hypodensity in the left posterior temporal/occipital area suggestive of acute/subacute infarct with multiple hyperdensities which may be hemorrhagic areas * Head/neck CTA showed severe calcification of the carotid arteries 60% on the right side, bilateral pleural effusion with adjacent atelectasis versus pneumonia * MRI of the brain and brainstem ordered however patient has pacemaker * Continue Aspirin, lipitor * PT/OT/ST * neurology consulted (2) Acute and chronic respiratory failure with hypercapnia: Code(s): J96.22 - Acute and chronic respiratory failure with hypercapnia Status: Acute Assessment and Plan: * ABG showing a pH of 7.313, pCO2 61.6, bicarb 30.5, PO2 90.9 * Continue BiPAP * at baseline oxygen * resolved (3) CHF (congestive heart failure): Code(s): I50.9 - Heart failure, unspecified Status: Chronic Assessment and Plan: * ProBNP greater than 30,000, patient has 4+ pitting edema to bilateral lower extremities * Troponin 0.078> 0.078> 0.070--likely demand ischemia * Bumex 1 mg IV push given overnight * Last echocardiogram reviewed from 06/10/2024 which shown mildly reduced LV systolic function with an estimated EF of 40-45%, right ventricular systolic function is reduced, left and right atrial chamber severely enlarged, bioprosthetic valve appears to be well seated, pulmonary hypertension with an estimated pulmonary arterial systolic pressure of 66 mmHg * Initial chest x-ray shown bilateral basal atelectasis versus pneumonia with bilateral pleural effusion, cardiomegaly with cardiac decompensation and pulmonary edema * Will repeat chest x-ray this morning * Continue metoprolol * Continue IV diuresis with Lasix 40 mg BID (4) Elevated d-dimer: Code(s): R79.89 - Other specified abnormal findings of blood chemistry Status: Acute Assessment and Plan: * D-dimer 1.9 * Will get V/Q scan negative for PE * Venous Doppler LE, negative (5) DM2 (diabetes mellitus, type 2): Code(s): E11.9 - Type 2 diabetes mellitus without complications Status: Chronic Assessment and Plan: * Blood sugars ranging 175-230 * Hgb A1C 5.4 on 09/03/2020 * Will recheck hemoglobin A1c * Accu checks AC/HS * High-dose SSI ordered * hypoglycemic protocol in place * Diabetic diet and 2 g sodium diet ordered (6) COPD (chronic obstructive pulmonary disease): Code(s): J44.9 - Chronic obstructive pulmonary disease, unspecified Status: Chronic Assessment and Plan: * DuoNebs ordered q.6 hour (7) Hypertension: Code(s): I10 - Essential (primary) hypertension Status: Chronic Assessment and Plan: * Blood pressure ranging 102/54 to 118/72 * Continue isosorbide (8) CAD (coronary artery disease): Code(s): I25.10 - Atherosclerotic heart disease of [place] coronary artery without angina pectoris Status: Chronic Assessment and Plan: * Status post CABG x5 vessel * Continue atorvastatin (9) Pacemaker: Code(s): Z95.0 - Presence of cardiac pacemaker Status: Acute Assessment and Plan: * Ventricular pacemaker in place * EKG showed electronic ventricular pacemaker with a rate of 65, QTC 517 (10) BPH (benign prostatic hyperplasia): Code(s): N40.0 - Benign prostatic hyperplasia without lower urinary tract symptoms Status: Chronic Assessment and Plan: * Continue finasteride and tamsulosin (11) Chronic anemia: Code(s): D64.9 - Anemia, unspecified Status: Chronic Assessment and Plan: * Hemoglobin 9.4-->8.4 * Appears to be chronic * Continue ferrous sulfate * isat 15 and Ferritin 43. * IV Iron 400/1000mg (12) Sleep apnea: Code(s): G47.30 - Sleep apnea, unspecified Status: Chronic Assessment and Plan: * Patient currently requiring BiPAP due to hypercapnia Plan CHRISTIAN on CKD Cr 2.51 baseline is about 1.6 Adjust diuresis and monitor Hyperkalemia K 5.8 Started Lokelma monitor DVT prophylaxis on SCDs Subjective Date/time seen: 07/01/24 14:47 Interval history: Comfortable at bedside Awiating neurology eval Review of Systems Review of Systems: All systems reviewed & are unremarkable except as noted in HPI and below Exam Narrative: General: In no acute distress, well nourished Head: atraumatic, no encephalopathy Eyes: PERRLA, sclera clear ENT: moist mucous membranes, nasal passages clear Neck: supple, no JVD, no adenopathy, trachea midline Cardiac: Normal S1 and S2. No murmur, gallops or friction rubs, peripheral pulses intact. Respiratory:Inspiratory and expiratory wheezing, no other adventitious lung sounds, currently on nasal cannula with use of accessory muscles and acute respiratory distress. Gastrointestinal: soft, non-distended, non-tender, normoactive bowel sounds. : voiding without difficulty. 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 No wounds or lesions. Neuro: Alert and oriented x4, cranial nerves intact, LUE weakness Psych: normal mood, normal affect, interactive Objective Data Vital Signs Vital Signs: Vital Signs - 24 hr 06/30/24 16:00 06/30/24 16:00 06/30/24 16:00 Temperature 97.8 F Pulse Rate 60 60 Respiratory Rate 22 H Blood Pressure 117/44 L Pulse Oximetry 97 100 Oxygen Delivery Nasal Cannula Oxygen Flow Rate 2 Fraction of Inspired Oxygen 06/30/24 18:00 06/30/24 19:45 06/30/24 20:00 Temperature 97.9 F Pulse Rate 60 60 Respiratory Rate 20 Blood Pressure 116/53 L Pulse Oximetry 97 97 Oxygen Delivery Nasal Cannula Oxygen Flow Rate 2 Fraction of Inspired Oxygen 06/30/24 20:00 06/30/24 20:27 06/30/24 20:27 Temperature Pulse Rate 60 60 60 Respiratory Rate 20 20 Blood Pressure Pulse Oximetry 99 Oxygen Delivery BiPAP Oxygen Flow Rate Fraction of Inspired Oxygen 06/30/24 22:00 06/30/24 23:31 07/01/24 00:00 Temperature 97.8 F Pulse Rate 60 60 Respiratory Rate 18 Blood Pressure 92/38 L Pulse Oximetry 99 99 Oxygen Delivery BiPAP Oxygen Flow Rate Fraction of Inspired Oxygen 07/01/24 00:00 07/01/24 02:00 07/01/24 02:23 Temperature Pulse Rate 60 60 61 Respiratory Rate 23 H Blood Pressure Pulse Oximetry 99 Oxygen Delivery BiPAP Oxygen Flow Rate Fraction of Inspired Oxygen 07/01/24 02:23 07/01/24 03:37 07/01/24 04:00 Temperature 97.3 F L Pulse Rate 61 60 Respiratory Rate 23 H 18 Blood Pressure 108/47 L Pulse Oximetry 100 96 Oxygen Delivery BiPAP Oxygen Flow Rate Fraction of Inspired Oxygen 07/01/24 04:00 07/01/24 06:00 07/01/24 07:42 Temperature 98.0 F Pulse Rate 60 60 67 Respiratory Rate 19 Blood Pressure 104/47 L Pulse Oximetry 100 Oxygen Delivery Oxygen Flow Rate Fraction of Inspired Oxygen 07/01/24 08:00 07/01/24 08:40 07/01/24 08:54 Temperature Pulse Rate 60 60 61 Respiratory Rate 21 H 20 Blood Pressure Pulse Oximetry Oxygen Delivery Oxygen Flow Rate Fraction of Inspired Oxygen 07/01/24 08:59 07/01/24 09:41 07/01/24 10:00 Temperature Pulse Rate 61 60 Respiratory Rate Blood Pressure Pulse Oximetry 99 Oxygen Delivery Nasal Cannula Oxygen Flow Rate 2 Fraction of Inspired Oxygen 07/01/24 10:17 07/01/24 11:44 07/01/24 12:00 Temperature 97.8 F Pulse Rate 60 60 Respiratory Rate 20 Blood Pressure 98/42 L Pulse Oximetry 100 Oxygen Delivery Nasal Cannula Oxygen Flow Rate 2 Fraction of Inspired Oxygen 07/01/24 12:50 07/01/24 13:31 07/01/24 13:40 Temperature Pulse Rate 60 61 Respiratory Rate 20 20 Blood Pressure Pulse Oximetry Oxygen Delivery Nasal Cannula Oxygen Flow Rate 2 Fraction of Inspired Oxygen 07/01/24 14:00 Temperature Pulse Rate 60 Respiratory Rate Blood Pressure Pulse Oximetry Oxygen Delivery Oxygen Flow Rate Fraction of Inspired Oxygen Intake/Output Intake/Output: Intake & Output 06/28/24 06/29/24 06/30/24 07/01/24 23:59 23:59 23:59 23:59 Intake Total 656 559 3828 480 Output Total 900 450 800 300 Balance 30 450 731 180 Meds/Results Medications: Active Medications Generic Name Dose Route Start Last Admin Trade Name Freq PRN Reason Stop Dose Admin Acetaminophen 650 mg 06/25/24 23:05 Acetaminophen 325 Mg Tablet PO Q4H PRN Mild Pain (1-3) or Fever Albuterol/Ipratropium 3 ml 06/26/24 02:00 07/01/24 13:30 Ipratropium 0.5 Mg/Albuterol Sulfate 2.5 Mg Ampul.Neb 3 Ml INHALATION 3 ml Q6HRT [facility] Administration Aspirin 81 mg 07/01/24 09:00 07/01/24 09:44 Aspirin 81 Mg Enteric Tablet PO [facility] Atorvastatin Calcium 40 mg 06/25/24 23:10 06/30/24 20:37 Atorvastatin 40 Mg Tablet PO 40 mg HS WARD Administration Cyanocobalamin 1,000 mcg 06/26/24 09:00 07/01/24 09:42 Cyanocobalamin 1,000 Mcg Tablet PO 1,000 mcg DAILY WARD Administration Dextrose 12.5 gm 06/26/24 04:23 Dextrose 50% 25 Gm/50 Ml Syringe IV PUSH PRN PRN Hypoglycemia Protocol Ferrous Sulfate 325 mg 06/26/24 09:00 07/01/24 09:42 Ferrous Sulfate [address] PO 325 mg BID WARD Administration Finasteride 5 mg 06/26/24 09:00 07/01/24 09:41 Finasteride 5 Mg Tablet PO 5 mg DAILY WARD Administration Folic Acid 1 mg 06/26/24 09:00 07/01/24 09:42 Folic Acid 1 Mg Tablet PO 1 mg DAILY WARD Administration Furosemide 40 mg 06/26/24 09:00 06/27/24 13:07 Furosemide Inj 40 Mg/4 Ml Vial IV PUSH Not Given BID WARD Glucagon 1 mg 06/26/24 04:23 Glucagon For Inj 1 Mg Vial IM PRN PRN Hypoglycemia Protocol Glucose 15 gm 06/26/24 04:23 Glucose Oral Gel 15 Gm Of Glucse In 37.5 Gm Tube PO PRN PRN Hypoglycemia Protocol Dextrose 1,000 mls @ 100 mls/hr 06/26/24 04:23 Dextrose 5% 1,000 Ml IVPB PRN PRN Hypoglycemia Protocol Insulin Aspart 4 - 8 units 06/26/24 08:00 07/01/24 12:13 Insulin Aspart (*Bkc) 100 Units/Ml SUB-Q 4 units TIDWM WARD Administration Protocol Insulin Aspart 2 - 4 units 06/26/24 21:00 06/30/24 20:38 Insulin Aspart (*Bkc) 100 Units/Ml SUB-Q 3 units HS WARD Administration Protocol Insulin Glargine 8 units 06/28/24 21:00 06/30/24 20:38 Insulin Glargine (*Bkc) 100 Units/Ml SUB-Q 8 units HS WARD Administration Isosorbide Mononitrate 15 mg 06/26/24 09:00 06/30/24 18:50 Isosorbide Mononitrate 10 Mg Tablet PO 15 mg BID@0900,1600 WARD Administration Metoprolol Succinate 25 mg 06/26/24 09:00 04/02/25 09:41 Metoprolol Succinate Ext Rel 25 Mg Tabcr PO 25 mg QAM WARD Administration Ondansetron HCl 4 mg 06/25/24 23:05 Ondansetron Inj 4 Mg/2 Ml Vial IV PUSH Q6H PRN Nausea And Vomiting Pantoprazole Sodium 40 mg 06/26/24 09:00 07/01/24 09:42 Pantoprazole 40 Mg Tablet PO 40 mg QAM WARD Administration Pregabalin 25 mg 06/26/24 21:00 06/30/24 20:37 Pregabalin (*Crx) 25 Mg Capsule PO 25 mg HS WARD Administration Tamsulosin HCl 0.4 mg 06/25/24 23:10 06/30/24 20:37 Tamsulosin Hcl 0.4 Mg Capsule PO 0.4 mg QHS WARD Administration Vitamin D 1,000 units 06/26/24 09:00 07/01/24 09:42 Cholecalciferol 1,000 Units Tablet PO 1,000 units DAILY WARD Administration Radiology Results: ITS Impressions Head CT 06/24/24 18:31 IMPRESSION: Hypodensity in the left posterior temporal/occipital area which is suggestive of acute/subacute infarct with multiple hyperdensities which may be hemorrhagic areas. Calcification is less likely. MRI evaluation is advised. Physician: Manav Duarte MD Was notified with the result of the patient at time 6:45 PM on June 24, 2024. Head/Neck CTA 06/24/24 19:43 IMPRESSION: 1. Nonvisualization of the distal left posterior cerebral artery. Otherwise normal CTA of the head. 2. CTA of the neck. Shows severe calcification of the carotid arteries. Percent stenosis per NASCET criteria is 60% on the right side. 3. Bilateral pleural effusion with adjacent atelectasis versus pneumonia. Chest X-Ray 06/26/24 05:51 IMPRESSION: 1. Stable airspace opacities in the mid and lower lung zones, consistent with atelectasis versus pneumonia. 2. Small pleural effusions. 3. Cardiomegaly. Venous Doppler Study 06/26/24 12:46 IMPRESSION: 1. No deep venous thrombosis. Pulmonary Perfusion Imaging 06/26/24 13:58 IMPRESSION: 1. No immediate probability for pulmonary embolism. Labs Labs: Laboratory Results - last 24 hr 06/30/24 06/30/24 07/01/24 16:07 19:48 04:35 WBC 5.3 RBC 2.75 L Hgb 8.4 L Hct 27.4 L MCV 99.6 MCH 30.5 MCHC 30.7 L RDW 15.6 H Plt Count 92 L MPV 10.7 H Immature Gran % (Auto) 0.6 H Neut % (Auto) 86.4 H Lymph % (Auto) 6.1 L Taylor % (Auto) 6.1 Eos % (Auto) 0.6 Baso % (Auto) 0.2 Lymph # (Auto) 0.32 L Taylor # (Auto) 0.3 Eos # (Auto) 0.0 Baso # (Auto) 0.0 Abs Immat Gran (auto) 0.03 Absolute Neuts (auto) 4.6 Absolute Nucleated RBC 0.000 Band Neutrophils % 0 Nucleated RBC % 0.0 Platelet Estimate Decreased % Immature Plt Fraction 3.8 Ovalocytes 1+ Schistocytes None seen Sodium 130 L Potassium 5.8 H Chloride 89 L Carbon Dioxide 32 H Anion Gap 9 BUN 111 H Creatinine 2.51 H Estim Creat Clear Calc 23 Estimated GFR 25 L Glucose 223 H POC Capillary Glucose 323 H 305 H Calcium 8.2 L Magnesium 2.7 H Iron 39 L TIBC 263 L % Saturation 15 L Ferritin 43.30 Total Bilirubin 0.6 AST 19 ALT 12 Alkaline Phosphatase 82 Total Protein 6.0 L Albumin 3.2 L 07/01/24 07/01/24 07:14 11:22 WBC RBC Hgb Hct MCV MCH MCHC RDW Plt Count MPV Immature Gran % (Auto) Neut % (Auto) Lymph % (Auto) Taylor % (Auto) Eos % (Auto) Baso % (Auto) Lymph # (Auto) Taylor # (Auto) Eos # (Auto) Baso # (Auto) Abs Immat Gran (auto) Absolute Neuts (auto) Absolute Nucleated RBC Band Neutrophils % Nucleated RBC % Platelet Estimate % Immature Plt Fraction Ovalocytes Schistocytes Sodium Potassium Chloride Carbon Dioxide Anion Gap BUN Creatinine Estim Creat Clear Calc Estimated GFR Glucose POC Capillary Glucose 224 H 244 H Calcium Magnesium Iron TIBC % Saturation Ferritin Total Bilirubin AST ALT Alkaline Phosphatase Total Protein Albumin Quality VTE Prophylaxis VTE prophylaxis: mechanical ordered
[2024-07-01] MEDS: ISOSORBIDE MONONITRATE 10 MG TABLET 15 MG PO (15:01)
[2024-07-01 15:42] LABS: Glucose Point of Care 297 mg/dl (65-105)
[2024-07-01] MEDS: IRON SUCROSE COMPLEX 400 MG in SODIUM CHLORIDE 0.9% IV 250 ML 108 MG IVPB (16:55)
[2024-07-01] MEDS: TAMSULOSIN HCL 0.4 MG CAPSULE PO (20:13)
[2024-07-01] MEDS: ATORVASTATIN 40 MG TABLET PO (20:13)
[2024-07-01] MEDS: PREGABALIN (*CRX) 25 MG CAPSULE PO (20:13)
[2024-07-01 20:28] LABS: Glucose Point of Care 300 mg/dl (65-105)
[2024-07-01] MEDS: INSULIN GLARGINE (*BKC) 100 UNITS/ML 8 UNITS SUB-Q (20:41)
[2024-07-02] VITALS (23 sets, daily range): BP systolic 91–109; BP diastolic 39–54; PULSE 60–66; RESP 20–28; TEMP 36.4–36.5; O2SAT 91–100
[2024-07-02] MEDS: IPRATROPIUM 0.5 MG/ALBUTEROL SULFATE 2.5 MG AMPUL.NEB 3 ML INHALATION ×5 (01:59→20:25)
[2024-07-02 04:24] LABS: Hematocrit 27.4 % (42.0-52.0); Hemoglobin 8.2 g/dL (14.0-18.0); Immature Platelet Fraction Pct 3.7 % (0.9-11.2); Mean Corpuscular HGB Conc 29.9 g/dl (32-36); Mean Corpuscular Volume 100.4 fl (80-100); Mean Platelet Volume 10.5 fl (7.4-10.4); Platelet Count Result 97 k/mm3 (150-375); Red Blood Count 2.73 M/mm3 (4.6-6.20); Red Cell Distribution Width 15.4 % (11.5-14.5); White Blood Count 5.5 K/mm3 (4.5-10.0)
[2024-07-02 04:40] LABS: Alanine Aminotransferase 12 U/L (6-50); Albumin Level 3.2 g/dL (3.5-5.1); Alkaline Phosphatase 76 U/L (38-126); Anion Gap 7 mmol/L (4-12); Aspartate Amino Transferase 20 U/L (17-59); Bilirubin,Total 0.5 mg/dL (0.2-1.3); Carbon Dioxide 33 mmol/L (22-30); Chloride 91 mmol/L (98-107); Estimated CRCL calculation 21 ml/min; Estimated Glomerular Filt Rate 22; Glucose 204 mg/dL (65-110); Magnesium 2.7 mg/dL (1.6-2.3); Potassium 5.8 mmol/L (3.4-5.0); Sodium 131 mmol/L (137-145)
[2024-07-02 04:45] LABS: Blood Urea Nitrogen 116 mg/dL (9-20)
[2024-07-02 04:59] LABS: Band Neutrophils Percent 3 % (0-6); Eosinophils Absolute Manual 0.11 K/mm3 (0.02-0.50); Eosinophils Percent Manual 2 % (0-4); Lymphocytes Absolute Manual 0.33 K/mm3 (1.1-4.5); Monocytes Absolute Manual 0.11 K/mm3 (0.1-0.90); Monocytes Percent Manual 2 % (3-9); Neutrophils Absolute Manual 4.95 K/mm3 (1.3-6.7); Neutrophils Percent Manual 87 % (46-73); Platelet Estimate Decreased (Adequate); Total Cells Counted 100
[2024-07-02 05:00] LABS: Anisocytosis 1+; Hypochromasia 1+; Ovalocytes 1+; Schistocytes Rare
[2024-07-02 07:42] LABS: Glucose Point of Care 237 mg/dl (65-105)
[2024-07-02] MEDS: CHOLECALCIFEROL 1,000 UNITS TABLET 1000 UNITS PO (09:15)
[2024-07-02] MEDS: FERROUS SULFATE 325 MG TABLET DR PO (09:15)
[2024-07-02] MEDS: CYANOCOBALAMIN 1,000 MCG TABLET 1000 MCG PO (09:15)
[2024-07-02] MEDS: PANTOPRAZOLE 40 MG TABLET PO (09:15)
[2024-07-02] MEDS: FOLIC ACID 1 MG TABLET PO (09:15)
[2024-07-02] MEDS: INSULIN ASPART (*BKC) 100 UNITS/ML SUB-Q ×3 (09:16→21:11)
[2024-07-02] MEDS: FINASTERIDE 5 MG TABLET PO (09:16)
[2024-07-02 11:23] LABS: Glucose Point of Care 182 mg/dl (65-105)
--- NOTE | 2024-07-02 11:40 | PCPTNOTE ---
Patient refused PT treatment due to feeling fatigued and SOB. SPO2 100% on 2L O2. PT will continue to follow per plan of care.
--- NOTE | 2024-07-02 11:54 | PCOTNOTE ---
Attempted to see Patient at this time. Patient declined to participate in therapy services, Patient states he is to tired and not interested.
[2024-07-02 12:47] LABS: Alveolar/Arterial O2 Gradient 21.2 mmHg; Fractional Inspired Oxygen 28 %; HCO3 ABG 32.5 mEq/l (22.0-26.0); Oxygen Content ABG 12.3 %vol (16.0-22.0); Oxygen Saturation ABG 94.9 % (95.0-100.0); Oxyhemoglobin 94.7 % THb (90.0-100.0); PO2 ABG 88.6 mmHg (80.0-100.0); PO2 FiO2 Ratio Arterial Blood 3.16 %; Total Hemoglobin 9.1 g/dL (12.0-18.0)
--- NOTE | 2024-07-02 12:47 | P.PNNP_ITS ---
Progress Note: A&P Assessment and Plan (1) Acute kidney injury: Code(s): N17.9 - Acute kidney failure, unspecified Status: Acute Assessment and Plan: * noted on admission * suspect due to several issues: * volume overload * infection (UTI) * previous IV diuresis * outpatient diuretics prior to admission * hypoxia * relative hypotension * contrast exposure (although creatinine elevated even prior to this...) * concerning that creatinine continues to worsen in association with hyperkalemia * noted azotemia as well although IV steroids likely contributing * remains at risk for DRAWING IN HAND/dialysis (which has been discussed before by his [place] physicians...) * follow trend of repeat labs and UOP (2) Chronic kidney disease, stage IV (severe): Code(s): N18.4 - Chronic kidney disease, stage 4 (severe) Status: Chronic Assessment and Plan: * baseline creatinine runs ~ 1.8 - 2.3mg/dl (from review of [place] records) * however, given his multiple admissions for volume overload/acute hypoxic respiratory failure and the need for diuresis, his creatinine has run in the 3ish range * furthermore, he tends have significant azotemia with BUNs running in the 100s+ range (presumably due to diuretics and prerenal factors) * due to hypertension, diabetes, CHF/cardiomyopathy with necessity of chronic diuretic therapy, vascular disease and age-related change * follows with Nephrology at [facility] * according to his , there have been ongoing discussions about dialysis with his palliative care team at [facility]... * he tells me that he willing to do dialysis if it is needed when I discussed it further him today... (3) Acute and chronic respiratory failure with hypercapnia: Code(s): J96.22 - Acute and chronic respiratory failure with hypercapnia Status: Acute Assessment and Plan: * due to combo of CHF and COPD complicated by his AFUA * on BiPAP therapy PRN and IV steroids * was previously on IV diuretics but on hold due to #1 * DNI (4) CHF (congestive heart failure): Code(s): I50.9 - Heart failure, unspecified Status: Chronic Assessment and Plan: * known history * Echo (06/10) noted: * left ventricular systolic function is mildly reduced - estimated at 40-45% * right ventricular systolic function is reduced * bioprosthetic valve appears to be well-seated. Leaflets not well visualized. Peak velocity of 2.5m/s, mean gradient of 13mmHg * no aortic valve regurgitation * mitral valve annulus is severely calcified * mitral valve has thickened leaflets * mild mitral valve regurgitation * moderate tricuspid valve regurgitation * pulmonary hypertension, estimated pulmonary arterial systolic pressure is 66 mmHg * IV diuretics on hold due to #1 * CXR results noted (5) COPD (chronic obstructive pulmonary disease): Code(s): J44.9 - Chronic obstructive pulmonary disease, unspecified Status: Chronic Assessment and Plan: * exacerbation suspected on admission * follow ABGs * BiPAP as needed * on nebulizers/bronchodilators and IV steroids * continue supportive therapy (6) Acute ischemic stroke: Code(s): I63.9 - Cerebral infarction, unspecified Status: Acute Assessment and Plan: * head CT shown hypodensity in the left posterior temporal/occipital area suggestive of acute/subacute infarct with multiple hyperdensities which may be hemorrhagic areas * head/neck CTA showed severe calcification of the carotid arteries 60% on the right side, bilateral pleural effusion with adjacent atelectasis versus pneumonia * unable to do MRI brain due to pacemaker * Neurololgy following with recommendations * continue PT/OT/ST (7) Sleep apnea: Code(s): G47.30 - Sleep apnea, unspecified Status: Chronic Assessment and Plan: * known history * was not using CPAP machine before admission * BIPAP when resting during the day and at night * noted issues with CO2 retention by ABGs (8) Chronic anemia: Code(s): D64.9 - Anemia, unspecified Status: Chronic Assessment and Plan: * suspect related to CHRISTIAN, CKD, and acute illness * anemia studies also note iron deficiency * on oral iron * s/p IV venofer * will dose with Epogen while hospitalized * follow trend of H/H (9) Hypertension: Code(s): I10 - Essential (primary) hypertension Status: Chronic Assessment and Plan: * reasonable control * follow trend of hemodynamics (10) DM2 (diabetes mellitus, type 2): Code(s): E11.9 - Type 2 diabetes mellitus without complications Status: Chronic Assessment and Plan: * follow accu-cheks * glycemic control per hospitalist Will continue to follow. L Subjective Date/time seen: 07/02/24 12:47 Interval history: Follow-up for acute kidney injury/acute renal failure on chronic kidney disease. Resting comfortably with BiPAP in place at the time of my visit; renal function/creatinine continues to deteriorate in association with mild hyperkalemia; still reports his breathing is a bit rough but no worse than yesterday; no apparent distress noted. Exam 2 Narrative: General: elderly but WD/WN [place] male in NAD; on BiPAP Heart: normal S1 and S2; no rub Lungs: coarse breath sounds with a few crackles at baseline Abdomen: soft, nontender, nondistended, positive bowel sounds Extremities: no cyanosis or clubbing; 2+ edema Skin: warm and dry Objective Data Vital Signs Vital Signs: Vital Signs Temp Pulse Resp BP Pulse Ox O2 Del Method O2 Flow Rate 07/02/24 12:36 62 28 H 93 BiPAP 07/02/24 12:00 65 07/02/24 12:00 97.5 F L 60 27 H 95/39 L 91 07/02/24 11:02 95 Nasal Cannula 2 07/02/24 10:33 60 20 98 BiPAP 07/02/24 08:55 60 20 07/02/24 08:40 62 24 H 07/02/24 08:40 96 Nasal Cannula 2 07/02/24 08:00 60 07/02/24 07:48 97.5 F L 60 20 91/40 L 100 07/02/24 04:00 60 07/02/24 04:00 97.7 F 60 22 H 98/43 L 97 07/02/24 02:18 62 21 H 07/02/24 01:59 60 21 H 07/02/24 01:59 60 21 H 96 BiPAP 07/02/24 00:00 60 07/02/24 00:00 97.7 F 60 22 H 99/41 L 100 07/01/24 22:47 62 22 H 94 BiPAP 07/01/24 20:00 98 BiPAP 07/01/24 19:53 63 22 H 07/01/24 19:43 97.8 F 60 22 H 105/44 L 99 07/01/24 19:42 60 22 H 07/01/24 19:42 60 22 H 96 BiPAP Intake/Output Intake/Output: Intake & Output 06/29/24 06/30/24 07/01/24 07/02/24 23:59 23:59 23:59 23:59 Intake Total 900 1531 990 240 Output Total 450 800 550 400 Balance 450 731 440 -160 Meds/Results Medications: Active Medications Generic Name Dose Route Start Last Admin Trade Name Radha PRN Reason Stop Dose Admin Acetaminophen 650 mg 06/25/24 23:05 Acetaminophen 325 Mg Tablet PO Q4H PRN Mild Pain (1-3) or Fever Albuterol/Ipratropium 3 ml 07/02/24 13:50 07/02/24 16:28 Ipratropium 0.5 Mg/Albuterol Sulfate 2.5 Mg Ampul.Neb 3 Ml INHALATION 3 ml Q4HRT WARD Administration Aspirin 81 mg 07/01/24 09:00 07/02/24 07:57 Aspirin 81 Mg Enteric Tablet PO Not Given QA WARD Atorvastatin Calcium 40 mg 06/25/24 23:10 07/01/24 20:13 Atorvastatin 40 Mg Tablet PO 40 mg HS WARD Administration Cyanocobalamin 1,000 mcg 06/26/24 09:00 07/02/24 09:15 Cyanocobalamin 1,000 Mcg Tablet PO 1,000 mcg DAILY WARD Administration Dextrose 12.5 gm 06/26/24 04:23 Dextrose 50% 25 Gm/50 Ml Syringe IV PUSH PRN PRN Hypoglycemia Protocol Ferrous Sulfate 325 mg 06/26/24 09:00 07/02/24 09:15 Ferrous Sulfate [address] PO 325 mg BID WARD Administration Finasteride 5 mg 06/26/24 09:00 07/02/24 09:16 Finasteride 5 Mg Tablet PO 5 mg DAILY WARD Administration Folic Acid 1 mg 06/26/24 09:00 07/02/24 09:15 Folic Acid 1 Mg Tablet PO 1 mg DAILY WARD Administration Furosemide 40 mg 06/26/24 09:00 06/27/24 13:07 Furosemide Inj 40 Mg/4 Ml Vial IV PUSH Not Given BID WARD Glucagon 1 mg 06/26/24 04:23 Glucagon For Inj 1 Mg Vial IM PRN PRN Hypoglycemia Protocol Glucose 15 gm 06/26/24 04:23 Glucose Oral Gel 15 Gm Of Glucse In 37.5 Gm Tube PO PRN PRN Hypoglycemia Protocol Dextrose 1,000 mls @ 100 mls/hr 06/26/24 04:23 Dextrose 5% 1,000 Ml IVPB PRN PRN Hypoglycemia Protocol Insulin Aspart 4 - 8 units 06/26/24 08:00 07/02/24 12:49 Insulin Aspart (*Bkc) 100 Units/Ml SUB-Q Not Given TIDWM [facility] Protocol Insulin Aspart 2 - 4 units 06/26/24 21:00 07/01/24 20:42 Insulin Aspart (*Bkc) 100 Units/Ml SUB-Q 2 units HS [facility] Administration Protocol Insulin Glargine 8 units 06/28/24 21:00 07/01/24 20:41 Insulin Glargine (*Bkc) 100 Units/Ml SUB-Q 8 units HS [facility] Administration Isosorbide Mononitrate 15 mg 06/26/24 09:00 07/02/24 10:21 Isosorbide Mononitrate 10 Mg Tablet PO Not Given BID@0900,1600 [facility] Methylprednisolone Sodium Succinate 40 mg 07/02/24 13:40 07/02/24 14:20 Methylprednisolone Sod Succ 40 Mg Vial IV PUSH 40 mg Q8HR [facility] Administration Metoprolol Succinate 25 mg 06/26/24 09:00 07/02/24 10:21 Metoprolol Succinate Ext Rel 25 Mg Tabcr PO Not Given QAM [facility] Ondansetron HCl 4 mg 06/25/24 23:05 Ondansetron Inj 4 Mg/2 Ml Vial IV PUSH Q6H PRN Nausea And Vomiting Pantoprazole Sodium 40 mg 06/26/24 09:00 07/02/24 09:15 Pantoprazole 40 Mg Tablet PO 40 mg QAM [facility] Administration Pregabalin 25 mg 06/26/24 21:00 07/01/24 20:13 Pregabalin (*Crx) 25 Mg Capsule PO 25 mg [facility] Administration Fluticasone/Salmeterol 2 puff 07/02/24 20:00 Fluticasone/Salmeterol 115-21 Mcg Inhaler 1 Puff INHALATION Q12HRT [facility] Sodium Zirconium Cyclosilicate 10 gm 07/02/24 16:50 Sodium Zirconium Cyclosilicate 10 Gm Powd.Pack PO TID@1000,1500,2200 [facility] Tamsulosin HCl 0.4 mg 06/25/24 23:10 07/01/24 20:13 Tamsulosin Hcl 0.4 Mg Capsule PO 0.4 mg QHS [facility] Administration Vitamin D 1,000 units 06/26/24 09:00 07/02/24 09:15 Cholecalciferol 1,000 Units Tablet PO 1,000 units DAILY WARD Administration Radiology Results: ITS Impressions Head CT 06/24/24 18:31 IMPRESSION: Hypodensity in the left posterior temporal/occipital area which is suggestive of acute/subacute infarct with multiple hyperdensities which may be hemorrhagic areas. Calcification is less likely. MRI evaluation is advised. Physician: Manav Duarte MD Was notified with the result of the patient at time 6:45 PM on June 24, 2024. Head/Neck CTA 06/24/24 19:43 IMPRESSION: 1. Nonvisualization of the distal left posterior cerebral artery. Otherwise normal CTA of the head. 2. CTA of the neck. Shows severe calcification of the carotid arteries. Percent stenosis per NASCET criteria is 60% on the right side. 3. Bilateral pleural effusion with adjacent atelectasis versus pneumonia. Venous Doppler Study 06/26/24 12:46 IMPRESSION: 1. No deep venous thrombosis. Pulmonary Perfusion Imaging 06/26/24 13:58 IMPRESSION: 1. No immediate probability for pulmonary embolism. ADDENDUM: 07/02/24 1044 CORRECTION: There is a dictation error in the impression section. With the correction capitalized this should read- 1. INTERMEDIATE probability for pulmonary embolism. This correction was discussed with Dior Ugarte, the nurse caring for the patient, at 10:40 AM. Chest X-Ray 07/02/24 10:34 IMPRESSION: 1. No significant change in small to moderate-sized bilateral pleural effusions with associated bibasilar atelectasis and/or pneumonia. 2. Cardiomegaly. Labs Labs: Laboratory Tests 07/02/24 04:15 07/02/24 04:15 Calcium 8.0 L Magnesium 2.7 H Total Bilirubin 0.5 AST 20 ALT 12 Alkaline Phosphatase 76 Total Protein 6.0 L Albumin 3.2 L
[2024-07-02 12:50] LABS: pH ABG 7.249 (7.350-7.450)
[2024-07-02 12:51] LABS: PCO2 ABG 76.1 mmHg (35.0-45.0)
[2024-07-02 12:52] LABS: Site Drawn LEFT BRACHIAL
[2024-07-02 12:53] LABS: Device NASAL CANNULA
--- NOTE | 2024-07-02 13:06 | P.PNNEUR_ITS ---
Progress Note: A&P Assessment and Plan (1) Acute ischemic stroke: Code(s): I63.9 - Cerebral infarction, unspecified Status: Acute (2) CHF (congestive heart failure): Code(s): I50.9 - Heart failure, unspecified Status: Chronic (3) Hypertension: Code(s): I10 - Essential (primary) hypertension Status: Chronic (4) Pacemaker: Code(s): Z95.0 - Presence of cardiac pacemaker Status: Acute (5) DM2 (diabetes mellitus, type 2): Code(s): E11.9 - Type 2 diabetes mellitus without complications Status: Chronic (6) Chronic renal failure, stage 3 (moderate): Code(s): N18.30 - Chronic kidney disease, stage 3 unspecified Status: Acute (7) COPD (chronic obstructive pulmonary disease): Code(s): J44.9 - Chronic obstructive pulmonary disease, unspecified Status: Chronic (8) Sleep apnea: Code(s): G47.30 - Sleep apnea, unspecified Status: Chronic Plan At present patient does not appear to have any aphasia right-sided weakness. The CT scan of the brain did show an infarct in the left posterior temporal parietal area. Aspirin 81 mg a day atorvastatin 40 mg a day. He has multiple medical problems including hemoglobin 8.2 and creatinine of 2.78 and potassium of 5.8. He is being attended to by medical office worker also. I would suggest to cont inue with the same treatment from neurologic point of view. Subjective Date/time seen: 07/02/24 13:06 Interval history: The patient is 84-year-old with history of presentation with altered mental status and found to have and left CVA. At this time however patient able to talk and move both upper and lower limbs. His creatinine was found to be at 2.78 and hemoglobin 8.2 and potassium is high at 5.8. He is being seen by Nephrology Services. Patient has a cardiac pacemaker and MRI cannot be done. CT angiogram did show a 60% narrowing on the right internal carotid artery. His CO2 was high at 61.6 and he is on BiPAP. There is also diagnosis of congestive cardiac failure, diabetes mellitus, chronic obstructive pulmonary disease. He has had coronary bypass grafting in the past. Review of Systems Review of Systems: All systems reviewed & are unremarkable except as noted in HPI and below Exam Narrative: fully conscious alert no aphasia or dysarthria. Cranial nerves no facial asymmetry. Tongue was midline. Extraocular movements were normal. Visual flowers by confrontation are normal. Motor system shows moving both upper and lower limbs and appears to have normal tone and symmetry. No asymmetry of reflexes. Objective Data Vital Signs Vital Signs: Vital Signs - 24 hr 07/01/24 13:31 07/01/24 13:40 07/01/24 14:00 Temperature Pulse Rate 60 61 60 Respiratory Rate 20 20 Blood Pressure Pulse Oximetry Oxygen Delivery Oxygen Flow Rate Fraction of Inspired Oxygen 07/01/24 16:00 07/01/24 16:00 07/01/24 19:42 Temperature 97.5 F L Pulse Rate 62 60 60 Respiratory Rate 22 H 22 H Blood Pressure 100/40 L Pulse Oximetry 98 96 Oxygen Delivery BiPAP Oxygen Flow Rate Fraction of Inspired Oxygen 07/01/24 19:42 07/01/24 19:43 07/01/24 19:53 Temperature 97.8 F Pulse Rate 60 60 63 Respiratory Rate 22 H 22 H 22 H Blood Pressure 105/44 L Pulse Oximetry 99 Oxygen Delivery Oxygen Flow Rate Fraction of Inspired Oxygen 07/01/24 20:00 07/01/24 22:47 07/02/24 00:00 Temperature 97.7 F Pulse Rate 62 60 Respiratory Rate 22 H 22 H Blood Pressure 99/41 L Pulse Oximetry 98 94 100 Oxygen Delivery BiPAP BiPAP Oxygen Flow Rate Fraction of Inspired Oxygen 07/02/24 00:00 07/02/24 01:59 07/02/24 01:59 Temperature Pulse Rate 60 60 60 Respiratory Rate 21 H 21 H Blood Pressure Pulse Oximetry 96 Oxygen Delivery BiPAP Oxygen Flow Rate Fraction of Inspired Oxygen 07/02/24 02:18 07/02/24 04:00 07/02/24 04:00 Temperature 97.7 F Pulse Rate 62 60 60 Respiratory Rate 21 H 22 H Blood Pressure 98/43 L Pulse Oximetry 97 Oxygen Delivery Oxygen Flow Rate Fraction of Inspired Oxygen 07/02/24 07:48 07/02/24 08:00 07/02/24 08:40 Temperature 97.5 F L Pulse Rate 60 60 Respiratory Rate 20 Blood Pressure 91/40 L Pulse Oximetry 100 96 Oxygen Delivery Nasal Cannula Oxygen Flow Rate 2 Fraction of Inspired Oxygen 07/02/24 08:40 07/02/24 08:55 07/02/24 10:33 Temperature Pulse Rate 62 60 60 Respiratory Rate 24 H 20 20 Blood Pressure Pulse Oximetry 98 Oxygen Delivery BiPAP Oxygen Flow Rate Fraction of Inspired Oxygen 07/02/24 11:02 07/02/24 12:00 07/02/24 12:00 Temperature 97.5 F L Pulse Rate 60 65 Respiratory Rate 27 H Blood Pressure 95/39 L Pulse Oximetry 95 91 Oxygen Delivery Nasal Cannula Oxygen Flow Rate 2 Fraction of Inspired Oxygen 07/02/24 12:36 Temperature Pulse Rate 62 Respiratory Rate 28 H Blood Pressure Pulse Oximetry 93 Oxygen Delivery BiPAP Oxygen Flow Rate Fraction of Inspired Oxygen Intake/Output Intake/Output: Intake & Output 06/29/24 06/30/24 07/01/24 07/02/24 23:59 23:59 23:59 23:59 Intake Total 900 1531 990 240 Output Total 450 800 550 400 Balance 450 731 440 -160 Meds/Results Medications: Active Medications Generic Name Dose Route Start Last Admin Trade Name Freq PRN Reason Stop Dose Admin Acetaminophen 650 mg 06/25/24 23:05 Acetaminophen 325 Mg Tablet PO Q4H PRN Mild Pain (1-3) or Fever Albuterol/Ipratropium 3 ml 06/26/24 02:00 07/02/24 08:39 Ipratropium 0.5 Mg/Albuterol Sulfate 2.5 Mg Ampul.Neb 3 Ml INHALATION 3 ml Q6HRT WARD Administration Aspirin 81 mg 07/01/24 09:00 07/02/24 07:57 Aspirin 81 Mg Enteric Tablet PO Not Given QAM WARD Atorvastatin Calcium 40 mg 06/25/24 23:10 07/01/24 20:13 Atorvastatin 40 Mg Tablet PO 40 mg HS WARD Administration Cyanocobalamin 1,000 mcg 06/26/24 09:00 07/02/24 09:15 Cyanocobalamin 1,000 Mcg Tablet PO 1,000 mcg DAILY WARD Administration Dextrose 12.5 gm 06/26/24 04:23 Dextrose 50% 25 Gm/50 Ml Syringe IV PUSH PRN PRN Hypoglycemia Protocol Ferrous Sulfate 325 mg 06/26/24 09:00 07/02/24 09:15 Ferrous Sulfate [address] PO 325 mg BID WARD Administration Finasteride 5 mg 06/26/24 09:00 07/02/24 09:16 Finasteride 5 Mg Tablet PO 5 mg DAILY WARD Administration Folic Acid 1 mg 06/26/24 09:00 07/02/24 09:15 Folic Acid 1 Mg Tablet PO 1 mg DAILY WARD Administration Furosemide 40 mg 06/26/24 09:00 06/27/24 13:07 Furosemide Inj 40 Mg/4 Ml Vial IV PUSH Not Given BID WARD Glucagon 1 mg 06/26/24 04:23 Glucagon For Inj 1 Mg Vial IM PRN PRN Hypoglycemia Protocol Glucose 15 gm 06/26/24 04:23 Glucose Oral Gel 15 Gm Of Glucse In 37.5 Gm Tube PO PRN PRN Hypoglycemia Protocol Dextrose 1,000 mls @ 100 mls/hr 06/26/24 04:23 Dextrose 5% 1,000 Ml IVPB PRN PRN Hypoglycemia Protocol Insulin Aspart 4 - 8 units 06/26/24 08:00 07/02/24 12:49 Insulin Aspart (*Bkc) 100 Units/Ml SUB-Q Not Given TIDWM [facility] Protocol Insulin Aspart 2 - 4 units 06/26/24 21:00 07/01/24 20:42 Insulin Aspart (*Bkc) 100 Units/Ml SUB-Q 2 units HS [facility] Administration Protocol Insulin Glargine 8 units 06/28/24 21:00 07/01/24 20:41 Insulin Glargine (*Bkc) 100 Units/Ml SUB-Q 8 units HS [facility] Administration Isosorbide Mononitrate 15 mg 06/26/24 09:00 07/02/24 10:21 Isosorbide Mononitrate 10 Mg Tablet PO Not Given BID@0900,1600 [facility] Metoprolol Succinate 25 mg 06/26/24 09:00 07/02/24 10:21 Metoprolol Succinate Ext Rel 25 Mg Tabcr PO Not Given QAM [facility] Ondansetron HCl 4 mg 06/25/24 23:05 Ondansetron Inj 4 Mg/2 Ml Vial IV PUSH Q6H PRN Nausea And Vomiting Pantoprazole Sodium 40 mg 06/26/24 09:00 07/02/24 09:15 Pantoprazole 40 Mg Tablet PO 40 mg QAM [facility] Administration Pregabalin 25 mg 06/26/24 21:00 07/01/24 20:13 Pregabalin (*Crx) 25 Mg Capsule PO 25 mg HS [facility] Administration Tamsulosin HCl 0.4 mg 06/25/24 23:10 07/01/24 20:13 Tamsulosin Hcl 0.4 Mg Capsule PO 0.4 mg QHS WARD Administration Vitamin D 1,000 units 06/26/24 09:00 07/02/24 09:15 Cholecalciferol 1,000 Units Tablet PO 1,000 units DAILY WARD Administration Radiology Results: ITS Impressions Head CT 06/24/24 18:31 IMPRESSION: Hypodensity in the left posterior temporal/occipital area which is suggestive of acute/subacute infarct with multiple hyperdensities which may be hemorrhagic areas. Calcification is less likely. MRI evaluation is advised. Physician: Manav Duarte MD Was notified with the result of the patient at time 6:45 PM on June 24, 2024. Head/Neck CTA 06/24/24 19:43 IMPRESSION: 1. Nonvisualization of the distal left posterior cerebral artery. Otherwise normal CTA of the head. 2. CTA of the neck. Shows severe calcification of the carotid arteries. Percent stenosis per NASCET criteria is 60% on the right side. 3. Bilateral pleural effusion with adjacent atelectasis versus pneumonia. Venous Doppler Study 06/26/24 12:46 IMPRESSION: 1. No deep venous thrombosis. Pulmonary Perfusion Imaging 06/26/24 13:58 IMPRESSION: 1. No immediate probability for pulmonary embolism. ADDENDUM: 07/02/24 1044 CORRECTION: There is a dictation error in the impression section. With the correction capitalized this should read- 1. INTERMEDIATE probability for pulmonary embolism. This correction was discussed with Dior Ugarte, the nurse caring for the patient, at 10:40 AM. Chest X-Ray 07/02/24 10:34 IMPRESSION: 1. No significant change in small to moderate-sized bilateral pleural effusions with associated bibasilar atelectasis and/or pneumonia. 2. Cardiomegaly. Labs Labs: Laboratory Results - last 24 hr 07/01/24 07/01/24 07/02/24 15:39 20:26 04:15 WBC 5.5 RBC 2.73 L Hgb 8.2 L Hct 27.4 L MCV 100.4 H MCH 30.0 MCHC 29.9 L RDW 15.4 H Plt Count 97 L MPV 10.5 H Immature Gran % (Auto) Not Reportable Neut % (Auto) Not Reportable Lymph % (Auto) Not Reportable Gillespie % (Auto) Not Reportable Eos % (Auto) Not Reportable Baso % (Auto) Not Reportable Lymph # (Auto) Not Reportable Gillespie # (Auto) Not Reportable Eos # (Auto) Not Reportable Baso # (Auto) Not Reportable Abs Immat Gran (auto) Not Reportable Absolute Neuts (auto) Not Reportable Absolute Nucleated RBC Not Reportable Total Counted 100 Neutrophils % (Manual) 87 H Band Neutrophils % 3 Lymphocytes % (Manual) 6.0 L Monocytes % (Manual) 2 L Eosinophils % (Manual) 2 Nucleated RBC % Not Reportable Abs Neuts (Manual) 4.95 Abs Lymphs (Manual) 0.33 L Abs Monocytes (Manual) 0.11 Absolute Eos (Manual) 0.11 Platelet Estimate Decreased % Immature Plt Fraction 3.7 Hypochromasia 1+ Anisocytosis 1+ Ovalocytes 1+ Schistocytes Rare Puncture Site ABG pH ABG pCO2 ABG pO2 ABG PO2/FiO2 Ratio ABG HCO3 ABG O2 Saturation ABG O2 Content ABG Base Excess A-a Gradient Oxyhemoglobin Total Hemoglobin O2 Delivery Device O2 Liters/Min FiO2 Sodium 131 L Potassium 5.8 H Chloride 91 L Carbon Dioxide 33 H Anion Gap 7 BUN 116 H Creatinine 2.78 H Estim Creat Clear Calc 21 Estimated GFR 22 L Glucose 204 H POC Capillary Glucose 297 H 300 H Calcium 8.0 L Magnesium 2.7 H Total Bilirubin 0.5 AST 20 ALT 12 Alkaline Phosphatase 76 Total Protein 6.0 L Albumin 3.2 L 07/02/24 07/02/24 07/02/24 07:16 11:19 12:27 WBC RBC Hgb Hct MCV MCH MCHC RDW Plt Count MPV Immature Gran % (Auto) Neut % (Auto) Lymph % (Auto) Gillespie % (Auto) Eos % (Auto) Baso % (Auto) Lymph # (Auto) Gillespie # (Auto) Eos # (Auto) Baso # (Auto) Abs Immat Gran (auto) Absolute Neuts (auto) Absolute Nucleated RBC Total Counted Neutrophils % (Manual) Band Neutrophils % Lymphocytes % (Manual) Monocytes % (Manual) Eosinophils % (Manual) Nucleated RBC % Abs Neuts (Manual) Abs Lymphs (Manual) Abs Monocytes (Manual) Absolute Eos (Manual) Platelet Estimate % Immature Plt Fraction Hypochromasia Anisocytosis Ovalocytes Schistocytes Puncture Site Left brachial ABG pH 7.249 L* ABG pCO2 76.1 H* ABG pO2 88.6 ABG PO2/FiO2 Ratio 3.16 ABG HCO3 32.5 H ABG O2 Saturation 94.9 L ABG O2 Content 12.3 L ABG Base Excess 4.0 A-a Gradient 21.2 Oxyhemoglobin 94.7 Total Hemoglobin 9.1 L O2 Delivery Device Nasal cannula O2 Liters/Min 28.0 FiO2 28 Sodium Potassium Chloride Carbon Dioxide Anion Gap BUN Creatinine Estim Creat Clear Calc Estimated GFR Glucose POC Capillary Glucose 237 H 182 H Calcium Magnesium Total Bilirubin AST ALT Alkaline Phosphatase Total Protein Albumin
--- NOTE | 2024-07-02 13:39 | P.PNIM_ITS ---
Progress Note: A&P Assessment and Plan (1) Acute ischemic stroke: Code(s): I63.9 - Cerebral infarction, unspecified Status: Acute Assessment and Plan: * Head CT shown hypodensity in the left posterior temporal/occipital area suggestive of acute/subacute infarct with multiple hyperdensities which may be hemorrhagic areas * Head/neck CTA showed severe calcification of the carotid arteries 60% on the right side, bilateral pleural effusion with adjacent atelectasis versus pneumonia * Unable to do MRI brain due to pacemaker * Continue Aspirin, lipitor * PT/OT/ST * neurology following (2) Acute and chronic respiratory failure with hypercapnia: Code(s): J96.22 - Acute and chronic respiratory failure with hypercapnia Status: Acute Assessment and Plan: From COPD exacerbation abg 7.249/76.1/88.6/32.5 on BiPAP and Continue Bronchodilator and IV steroids (3) CHF (congestive heart failure): Code(s): I50.9 - Heart failure, unspecified Status: Chronic Assessment and Plan: * ProBNP greater than 30,000, patient has 4+ pitting edema to bilateral lower extremities * Troponin 0.078> 0.078> 0.070--likely demand ischemia * ECHO EF 40-45% * Lasix 40mg IV bid on hold due to worsening renal function * Repeat CXR showed no significant change to small to moderate-sized bilateral pleural effusions (4) Elevated d-dimer: Code(s): R79.89 - Other specified abnormal findings of blood chemistry Status: Acute Assessment and Plan: * D-dimer 1.9 * Will get V/Q scan negative for PE * Venous Doppler LE, negative (5) DM2 (diabetes mellitus, type 2): Code(s): E11.9 - Type 2 diabetes mellitus without complications Status: Chronic Assessment and Plan: * Blood sugars ranging 175-230 * Hgb A1C 5.4 on 09/03/2020 * Will recheck hemoglobin A1c * Accu checks AC/HS * High-dose SSI ordered * hypoglycemic protocol in place * Diabetic diet and 2 g sodium diet ordered (6) COPD (chronic obstructive pulmonary disease): Code(s): J44.9 - Chronic obstructive pulmonary disease, unspecified Status: Chronic Assessment and Plan: in exacerbation continue IV steroid, bronchodilators monitor (7) Hypertension: Code(s): I10 - Essential (primary) hypertension Status: Chronic Assessment and Plan: * Blood pressure ranging 102/54 to 118/72 * Continue isosorbide (8) CAD (coronary artery disease): Code(s): I25.10 - Atherosclerotic heart disease of [place] coronary artery without angina pectoris Status: Chronic Assessment and Plan: * Status post CABG x5 vessel * Continue atorvastatin (9) Pacemaker: Code(s): Z95.0 - Presence of cardiac pacemaker Status: Acute Assessment and Plan: * Ventricular pacemaker in place * EKG showed electronic ventricular pacemaker with a rate of 65, QTC 517 (10) BPH (benign prostatic hyperplasia): Code(s): N40.0 - Benign prostatic hyperplasia without lower urinary tract symptoms Status: Chronic Assessment and Plan: * Continue finasteride and tamsulosin (11) Chronic anemia: Code(s): D64.9 - Anemia, unspecified Status: Chronic Assessment and Plan: * Hemoglobin 9.4-->8.4 * Appears to be chronic * Continue ferrous sulfate * isat 15 and Ferritin 43. * IV Iron 400/1000mg (12) Sleep apnea: Code(s): G47.30 - Sleep apnea, unspecified Status: Chronic Assessment and Plan: * Patient currently requiring BiPAP due to hypercapnia Plan CHRISTIAN on CKD , worsening Cr 2.51-->2.78 baseline is about 1.6 Lasix on hold, given worsening fluid overload, patient may need dialysis Nephrology consulted Hyperkalemia K 5.8 Started [facility] following iron deficiency anemia Hb 8.2, isat 15 Give 400mg IV iron continue PO Iron monitor DVT prophylaxis on SCDs Subjective Date/time seen: 07/02/24 13:39 Interval history: Comfortable at bedside now in Hypercapnic respiratory failure Review of Systems Review of Systems: All systems reviewed & are unremarkable except as noted in HPI and below Exam Narrative: General: In no acute distress, well nourished Head: atraumatic, no encephalopathy Eyes: PERRLA, sclera clear ENT: moist mucous membranes, nasal passages clear Neck: supple, no JVD, no adenopathy, trachea midline Cardiac: Normal S1 and S2. No murmur, gallops or friction rubs, peripheral pulses intact. Respiratory:Inspiratory and expiratory wheezing, no other adventitious lung sounds, currently on nasal cannula with use of accessory muscles and acute respiratory distress. Gastrointestinal: soft, non-distended, non-tender, normoactive bowel sounds. : voiding without difficulty. 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 No wounds or lesions. Neuro: Alert and oriented x4, cranial nerves intact, LUE weakness Psych: normal mood, normal affect, interactive Objective Data Vital Signs Vital Signs: Vital Signs - 24 hr 07/01/24 13:40 07/01/24 14:00 07/01/24 16:00 Temperature 97.5 F L Pulse Rate 61 60 62 Respiratory Rate 20 22 H Blood Pressure 100/40 L Pulse Oximetry 98 Oxygen Delivery Oxygen Flow Rate Fraction of Inspired Oxygen 07/01/24 16:00 07/01/24 19:42 07/01/24 19:42 Temperature Pulse Rate 60 60 60 Respiratory Rate 22 H 22 H Blood Pressure Pulse Oximetry 96 Oxygen Delivery BiPAP Oxygen Flow Rate Fraction of Inspired Oxygen 07/01/24 19:43 07/01/24 19:53 07/01/24 20:00 Temperature 97.8 F Pulse Rate 60 63 Respiratory Rate 22 H 22 H Blood Pressure 105/44 L Pulse Oximetry 99 98 Oxygen Delivery BiPAP Oxygen Flow Rate Fraction of Inspired Oxygen 07/01/24 22:47 07/02/24 00:00 07/02/24 00:00 Temperature 97.7 F Pulse Rate 62 60 60 Respiratory Rate 22 H 22 H Blood Pressure 99/41 L Pulse Oximetry 94 100 Oxygen Delivery BiPAP Oxygen Flow Rate Fraction of Inspired Oxygen 07/02/24 01:59 07/02/24 01:59 07/02/24 02:18 Temperature Pulse Rate 60 60 62 Respiratory Rate 21 H 21 H 21 H Blood Pressure Pulse Oximetry 96 Oxygen Delivery BiPAP Oxygen Flow Rate Fraction of Inspired Oxygen 07/02/24 04:00 07/02/24 04:00 07/02/24 07:48 Temperature 97.7 F 97.5 F L Pulse Rate 60 60 60 Respiratory Rate 22 H 20 Blood Pressure 98/43 L 91/40 L Pulse Oximetry 97 100 Oxygen Delivery Oxygen Flow Rate Fraction of Inspired Oxygen 07/02/24 08:00 07/02/24 08:40 07/02/24 08:40 Temperature Pulse Rate 60 62 Respiratory Rate 24 H Blood Pressure Pulse Oximetry 96 Oxygen Delivery Nasal Cannula Oxygen Flow Rate 2 Fraction of Inspired Oxygen 07/02/24 08:55 07/02/24 10:33 07/02/24 11:02 Temperature Pulse Rate 60 60 Respiratory Rate 20 20 Blood Pressure Pulse Oximetry 98 95 Oxygen Delivery BiPAP Nasal Cannula Oxygen Flow Rate 2 Fraction of Inspired Oxygen 07/02/24 12:00 07/02/24 12:00 07/02/24 12:36 Temperature 97.5 F L Pulse Rate 60 65 62 Respiratory Rate 27 H 28 H Blood Pressure 95/39 L Pulse Oximetry 91 93 Oxygen Delivery BiPAP Oxygen Flow Rate Fraction of Inspired Oxygen Intake/Output Intake/Output: Intake & Output 06/29/24 06/30/24 07/01/24 07/02/24 23:59 23:59 23:59 23:59 Intake Total 900 1531 990 240 Output Total 450 800 550 400 Balance 450 731 440 -160 Meds/Results Medications: Active Medications Generic Name Dose Route Start Last Admin Trade Name Freq PRN Reason Stop Dose Admin Acetaminophen 650 mg 06/25/24 23:05 Acetaminophen 325 Mg Tablet PO Q4H PRN Mild Pain (1-3) or Fever Albuterol/Ipratropium 3 ml 06/26/24 02:00 07/02/24 08:39 Ipratropium 0.5 Mg/Albuterol Sulfate 2.5 Mg Ampul.Neb 3 Ml INHALATION 3 ml Q6HRT WARD Administration Albuterol/Ipratropium 3 ml 07/02/24 13:40 Ipratropium 0.5 Mg/Albuterol Sulfate 2.5 Mg Ampul.Neb 3 Ml INHALATION Q4H [facility] Aspirin 81 mg 07/01/24 09:00 07/02/24 07:57 Aspirin 81 Mg Enteric Tablet PO Not Given QAM [facility] Atorvastatin Calcium 40 mg 06/25/24 23:10 07/01/24 20:13 Atorvastatin 40 Mg Tablet PO 40 mg HS WARD Administration Cyanocobalamin 1,000 mcg 06/26/24 09:00 07/02/24 09:15 Cyanocobalamin 1,000 Mcg Tablet PO 1,000 mcg DAILY WARD Administration Dextrose 12.5 gm 06/26/24 04:23 Dextrose 50% 25 Gm/50 Ml Syringe IV PUSH PRN PRN Hypoglycemia Protocol Ferrous Sulfate 325 mg 06/26/24 09:00 07/02/24 09:15 Ferrous Sulfate [address] PO 325 mg BID WARD Administration Finasteride 5 mg 06/26/24 09:00 07/02/24 09:16 Finasteride 5 Mg Tablet PO 5 mg DAILY WARD Administration Folic Acid 1 mg 06/26/24 09:00 07/02/24 09:15 Folic Acid 1 Mg Tablet PO 1 mg DAILY WARD Administration Furosemide 40 mg 06/26/24 09:00 06/27/24 13:07 Furosemide Inj 40 Mg/4 Ml Vial IV PUSH Not Given BID WARD Glucagon 1 mg 06/26/24 04:23 Glucagon For Inj 1 Mg Vial IM PRN PRN Hypoglycemia Protocol Glucose 15 gm 06/26/24 04:23 Glucose Oral Gel 15 Gm Of Glucse In 37.5 Gm Tube PO PRN PRN Hypoglycemia Protocol Dextrose 1,000 mls @ 100 mls/hr 06/26/24 04:23 Dextrose 5% 1,000 Ml IVPB PRN PRN Hypoglycemia Protocol Insulin Aspart 4 - 8 units 06/26/24 08:00 07/02/24 12:49 Insulin Aspart (*Bkc) 100 Units/Ml SUB-Q Not Given TIDWM [facility] Protocol Insulin Aspart 2 - 4 units 06/26/24 21:00 07/01/24 20:42 Insulin Aspart (*Bkc) 100 Units/Ml SUB-Q 2 units HS WARD Administration Protocol Insulin Glargine 8 units 06/28/24 21:00 07/01/24 20:41 Insulin Glargine (*Bkc) 100 Units/Ml SUB-Q 8 units HS WARD Administration Isosorbide Mononitrate 15 mg 06/26/24 09:00 07/02/24 10:21 Isosorbide Mononitrate 10 Mg Tablet PO Not Given BID@0900,1600 [facility] Methylprednisolone Sodium Succinate 40 mg 07/02/24 13:40 Methylprednisolone Sod Succ 40 Mg Vial IV PUSH Q8H WARD Metoprolol Succinate 25 mg 06/26/24 09:00 07/02/24 10:21 Metoprolol Succinate Ext Rel 25 Mg Tabcr PO Not Given QAM [facility] Ondansetron HCl 4 mg 06/25/24 23:05 Ondansetron Inj 4 Mg/2 Ml Vial IV PUSH Q6H PRN Nausea And Vomiting Pantoprazole Sodium 40 mg 06/26/24 09:00 07/02/24 09:15 Pantoprazole 40 Mg Tablet PO 40 mg QAM WARD Administration Pregabalin 25 mg 06/26/24 21:00 07/01/24 20:13 Pregabalin (*Crx) 25 Mg Capsule PO 25 mg HS WARD Administration Fluticasone/Salmeterol 2 puff 07/02/24 20:00 Fluticasone/Salmeterol 115-21 Mcg Inhaler 1 Puff INHALATION Q12HRT [facility] Tamsulosin HCl 0.4 mg 06/25/24 23:10 07/01/24 20:13 Tamsulosin Hcl 0.4 Mg Capsule PO 0.4 mg QHS WARD Administration Vitamin D 1,000 units 06/26/24 09:00 07/02/24 09:15 Cholecalciferol 1,000 Units Tablet PO 1,000 units DAILY WARD Administration Radiology Results: ITS Impressions Head CT 06/24/24 18:31 IMPRESSION: Hypodensity in the left posterior temporal/occipital area which is suggestive of acute/subacute infarct with multiple hyperdensities which may be hemorrhagic areas. Calcification is less likely. MRI evaluation is advised. Physician: Manav Duarte MD Was notified with the result of the patient at time 6:45 PM on June 24, 2024. Head/Neck CTA 06/24/24 19:43 IMPRESSION: 1. Nonvisualization of the distal left posterior cerebral artery. Otherwise normal CTA of the head. 2. CTA of the neck. Shows severe calcification of the carotid arteries. Percent stenosis per NASCET criteria is 60% on the right side. 3. Bilateral pleural effusion with adjacent atelectasis versus pneumonia. Venous Doppler Study 06/26/24 12:46 IMPRESSION: 1. No deep venous thrombosis. Pulmonary Perfusion Imaging 06/26/24 13:58 IMPRESSION: 1. No immediate probability for pulmonary embolism. ADDENDUM: 07/02/24 1044 CORRECTION: There is a dictation error in the impression section. With the correction capitalized this should read- 1. INTERMEDIATE probability for pulmonary embolism. This correction was discussed with Dior Ugarte, the nurse caring for the patient, at 10:40 AM. Chest X-Ray 07/02/24 10:34 IMPRESSION: 1. No significant change in small to moderate-sized bilateral pleural effusions with associated bibasilar atelectasis and/or pneumonia. 2. Cardiomegaly. Labs Labs: Laboratory Results - last 24 hr 07/01/24 07/01/24 07/02/24 15:39 20:26 04:15 WBC 5.5 RBC 2.73 L Hgb 8.2 L Hct 27.4 L MCV 100.4 H MCH 30.0 MCHC 29.9 L RDW 15.4 H Plt Count 97 L MPV 10.5 H Immature Gran % (Auto) Not Reportable Neut % (Auto) Not Reportable Lymph % (Auto) Not Reportable [place] % (Auto) Not Reportable Eos % (Auto) Not Reportable Baso % (Auto) Not Reportable Lymph # (Auto) Not Reportable [place] # (Auto) Not Reportable Eos # (Auto) Not Reportable Baso # (Auto) Not Reportable Abs Immat Gran (auto) Not Reportable Absolute Neuts (auto) Not Reportable Absolute Nucleated RBC Not Reportable Total Counted 100 Neutrophils % (Manual) 87 H Band Neutrophils % 3 Lymphocytes % (Manual) 6.0 L Monocytes % (Manual) 2 L Eosinophils % (Manual) 2 Nucleated RBC % Not Reportable Abs Neuts (Manual) 4.95 Abs Lymphs (Manual) 0.33 L Abs Monocytes (Manual) 0.11 Absolute Eos (Manual) 0.11 Platelet Estimate Decreased % Immature Plt Fraction 3.7 Hypochromasia 1+ Anisocytosis 1+ Ovalocytes 1+ Schistocytes Rare Puncture Site ABG pH ABG pCO2 ABG pO2 ABG PO2/FiO2 Ratio ABG HCO3 ABG O2 Saturation ABG O2 Content ABG Base Excess A-a Gradient Oxyhemoglobin Total Hemoglobin O2 Delivery Device O2 Liters/Min FiO2 Sodium 131 L Potassium 5.8 H Chloride 91 L Carbon Dioxide 33 H Anion Gap 7 BUN 116 H Creatinine 2.78 H Estim Creat Clear Calc 21 Estimated GFR 22 L Glucose 204 H POC Capillary Glucose 297 H 300 H Calcium 8.0 L Magnesium 2.7 H Total Bilirubin 0.5 AST 20 ALT 12 Alkaline Phosphatase 76 Total Protein 6.0 L Albumin 3.2 L 07/02/24 07/02/24 07/02/24 07:16 11:19 12:27 WBC RBC Hgb Hct MCV MCH MCHC RDW Plt Count MPV Immature Gran % (Auto) Neut % (Auto) Lymph % (Auto) [place] % (Auto) Eos % (Auto) Baso % (Auto) Lymph # (Auto) [place] # (Auto) Eos # (Auto) Baso # (Auto) Abs Immat Gran (auto) Absolute Neuts (auto) Absolute Nucleated RBC Total Counted Neutrophils % (Manual) Band Neutrophils % Lymphocytes % (Manual) Monocytes % (Manual) Eosinophils % (Manual) Nucleated RBC % Abs Neuts (Manual) Abs Lymphs (Manual) Abs Monocytes (Manual) Absolute Eos (Manual) Platelet Estimate % Immature Plt Fraction Hypochromasia Anisocytosis Ovalocytes Schistocytes Puncture Site Left brachial ABG pH 7.249 L* ABG pCO2 76.1 H* ABG pO2 88.6 ABG PO2/FiO2 Ratio 3.16 ABG HCO3 32.5 H ABG O2 Saturation 94.9 L ABG O2 Content 12.3 L ABG Base Excess 4.0 A-a Gradient 21.2 Oxyhemoglobin 94.7 Total Hemoglobin 9.1 L O2 Delivery Device Nasal cannula O2 Liters/Min 28.0 FiO2 28 Sodium Potassium Chloride Carbon Dioxide Anion Gap BUN Creatinine Estim Creat Clear Calc Estimated GFR Glucose POC Capillary Glucose 237 H 182 H Calcium Magnesium Total Bilirubin AST ALT Alkaline Phosphatase Total Protein Albumin Quality VTE Prophylaxis VTE prophylaxis: mechanical ordered
[2024-07-02 13:51] LABS: IFOB Positive Control Positive; Immunochemical Fecal Occult Bl Positive (N)
[2024-07-02] MEDS: methylPREDNISolone SOD SUCC 40 MG VIAL IV PUSH ×2 (14:20→19:49)
[2024-07-02] MEDS: SODIUM ZIRCONIUM CYCLOSILICATE 10 GM POWD.PACK PO ×2 (14:21→19:50)
[2024-07-02 16:32] LABS: Glucose Point of Care 215 mg/dl (65-105)
[2024-07-02] MEDS: ATORVASTATIN 40 MG TABLET PO (19:49)
[2024-07-02] MEDS: PREGABALIN (*CRX) 25 MG CAPSULE PO (19:49)
[2024-07-02] MEDS: TAMSULOSIN HCL 0.4 MG CAPSULE PO (19:49)
[2024-07-02] MEDS: INSULIN GLARGINE (*BKC) 100 UNITS/ML 8 UNITS SUB-Q (19:51)
[2024-07-02] MEDS: FLUTICASONE/SALMETEROL 115-21 MCG INHALER 1 PUFF 2 PUFF INHALATION (20:25)
[2024-07-02 20:58] LABS: Glucose Point of Care 336 mg/dl (65-105)
[2024-07-03] VITALS (27 sets, daily range): BP systolic 92–141; BP diastolic 45–72; PULSE 55–93; RESP 18–28; TEMP 36.4–36.7; O2SAT 95–100
[2024-07-03] MEDS: IPRATROPIUM 0.5 MG/ALBUTEROL SULFATE 2.5 MG AMPUL.NEB 3 ML INHALATION ×7 (00:30→23:05)
[2024-07-03 04:47] LABS: Hematocrit 28.1 % (42.0-52.0); Hemoglobin 8.4 g/dL (14.0-18.0); Immature Platelet Fraction Pct 3.8 % (0.9-11.2); Mean Corpuscular HGB Conc 29.9 g/dl (32-36); Mean Corpuscular Hemoglobin 30.4 pg (26-34); Mean Corpuscular Volume 101.8 fl (80-100); Mean Platelet Volume 10.2 fl (7.4-10.4); Red Blood Count 2.76 M/mm3 (4.6-6.20); Red Cell Distribution Width 15.6 % (11.5-14.5); White Blood Count 3.8 K/mm3 (4.5-10.0)
[2024-07-03 05:08] LABS: Alanine Aminotransferase 16 U/L (6-50); Albumin Level 3.4 g/dL (3.5-5.1); Alkaline Phosphatase 72 U/L (38-126); Anion Gap 11 mmol/L (4-12); Aspartate Amino Transferase 21 U/L (17-59); Bilirubin,Total 0.5 mg/dL (0.2-1.3); Blood Urea Nitrogen 118 mg/dL (9-20); Calcium 8.1 mg/dL (8.4-10.2); Carbon Dioxide 30 mmol/L (22-30); Chloride 89 mmol/L (98-107); Estimated CRCL calculation 23 ml/min; Estimated Glomerular Filt Rate 24; Glucose 316 mg/dL (65-110); Magnesium 2.8 mg/dL (1.6-2.3); Potassium 5.8 mmol/L (3.4-5.0); Sodium 130 mmol/L (137-145)
[2024-07-03 05:12] LABS: Platelet Count Result 95 k/mm3 (150-375)
[2024-07-03 05:19] LABS: Anisocytosis 1+; Hypochromasia 1+; Lymphocytes Absolute Manual 0.19 K/mm3 (1.1-4.5); Monocytes Absolute Manual 0.03 K/mm3 (0.1-0.90); Monocytes Percent Manual 1 % (3-9); Neutrophils Percent Manual 94 % (46-73); Ovalocytes 1+; Platelet Estimate Adequate (Adequate); Schistocytes None Seen; Total Cells Counted 100
[2024-07-03 05:21] LABS: Band Neutrophils Percent 0 % (0-6); Neutrophils Absolute Manual 3.57 K/mm3 (1.3-6.7)
[2024-07-03] MEDS: methylPREDNISolone SOD SUCC 40 MG VIAL IV PUSH ×3 (05:35→22:07)
[2024-07-03 07:34] LABS: Glucose Point of Care 316 mg/dl (65-105)
[2024-07-03] MEDS: FLUTICASONE/SALMETEROL 115-21 MCG INHALER 1 PUFF 2 PUFF INHALATION ×2 (08:01→19:57)
[2024-07-03] MEDS: PANTOPRAZOLE 40 MG TABLET PO (08:30)
[2024-07-03] MEDS: ASPIRIN 81 MG ENTERIC TABLET PO (08:30)
[2024-07-03] MEDS: CHOLECALCIFEROL 1,000 UNITS TABLET 1000 UNITS PO (08:30)
[2024-07-03] MEDS: FOLIC ACID 1 MG TABLET PO (08:30)
[2024-07-03] MEDS: FERROUS SULFATE 325 MG TABLET DR PO ×2 (08:30→17:51)
[2024-07-03] MEDS: FINASTERIDE 5 MG TABLET PO (08:30)
[2024-07-03] MEDS: CYANOCOBALAMIN 1,000 MCG TABLET 1000 MCG PO (08:30)
[2024-07-03] MEDS: INSULIN ASPART (*BKC) 100 UNITS/ML SUB-Q ×4 (08:31→20:15)
--- NOTE | 2024-07-03 10:08 | P.PNNP_ITS ---
Progress Note: A&P Assessment and Plan (1) Acute kidney injury: Code(s): N17.9 - Acute kidney failure, unspecified Status: Acute Assessment and Plan: * noted on admission * suspect due to several issues: * volume overload * infection (UTI) * previous IV diuresis * outpatient diuretics prior to admission * hypoxia * relative hypotension * contrast exposure (although creatinine elevated even prior to this...) * concerning that creatinine continues to worsen in association with hyperkalemia * noted azotemia as well although IV steroids likely contributing * remains at risk for [employer]/dialysis (which has been discussed before by his [place] physicians...) * follow trend of repeat labs and UOP (2) Chronic kidney disease, stage IV (severe): Code(s): N18.4 - Chronic kidney disease, stage 4 (severe) Status: Chronic Assessment and Plan: * baseline creatinine runs ~ 1.8 - 2.3mg/dl (from review of [place] records) * however, given his multiple admissions for volume overload/acute hypoxic respiratory failure and the need for diuresis, his creatinine has run in the 3ish range * furthermore, he tends have significant azotemia with BUNs running in the 100s+ range (presumably due to diuretics and prerenal factors) * due to hypertension, diabetes, CHF/cardiomyopathy with necessity of chronic diuretic therapy, vascular disease and age-related change * follows with Nephrology at [facility] * according to his , there have been ongoing discussions about dialysis with his palliative care team at [facility]... * he tells me that he willing to do dialysis if it is needed when I discussed it further with him (3) Acute and chronic respiratory failure with hypercapnia: Code(s): J96.22 - Acute and chronic respiratory failure with hypercapnia Status: Acute Assessment and Plan: * due to combo of CHF and COPD complicated by his AFUA * on BiPAP therapy PRN and IV steroids * was previously on IV diuretics but on hold due to #1 * DNI (4) CHF (congestive heart failure): Code(s): I50.9 - Heart failure, unspecified Status: Chronic Assessment and Plan: * known history * Echo (06/10) noted: * left ventricular systolic function is mildly reduced - estimated at 40-45% * right ventricular systolic function is reduced * bioprosthetic valve appears to be well-seated. Leaflets not well visualized. Peak velocity of 2.5m/s, mean gradient of 13mmHg * no aortic valve regurgitation * mitral valve annulus is severely calcified * mitral valve has thickened leaflets * mild mitral valve regurgitation * moderate tricuspid valve regurgitation * pulmonary hypertension, estimated pulmonary arterial systolic pressure is 66 mmHg * IV diuretics on hold due to #1 * CXR results noted (5) COPD (chronic obstructive pulmonary disease): Code(s): J44.9 - Chronic obstructive pulmonary disease, unspecified Status: Chronic Assessment and Plan: * exacerbation suspected on admission * follow ABGs * BiPAP as needed * on nebulizers/bronchodilators and IV steroids * continue supportive therapy (6) Acute ischemic stroke: Code(s): I63.9 - Cerebral infarction, unspecified Status: Acute Assessment and Plan: * head CT shown hypodensity in the left posterior temporal/occipital area suggestive of acute/subacute infarct with multiple hyperdensities which may be hemorrhagic areas * head/neck CTA showed severe calcification of the carotid arteries 60% on the right side, bilateral pleural effusion with adjacent atelectasis versus pneumonia * unable to do MRI brain due to pacemaker * Neurololgy following with recommendations * continue PT/OT/ST (7) Sleep apnea: Code(s): G47.30 - Sleep apnea, unspecified Status: Chronic Assessment and Plan: * known history * was not using CPAP machine before admission * BIPAP when resting during the day and at night * noted issues with CO2 retention by ABGs (8) Chronic anemia: Code(s): D64.9 - Anemia, unspecified Status: Chronic Assessment and Plan: * suspect related to CHRISTIAN, CKD, and acute illness * anemia studies also note iron deficiency * on oral iron * s/p IV venofer * will dose with Epogen while hospitalized * follow trend of H/H (9) Hypertension: Code(s): I10 - Essential (primary) hypertension Status: Chronic Assessment and Plan: * reasonable control * follow trend of hemodynamics (10) DM2 (diabetes mellitus, type 2): Code(s): E11.9 - Type 2 diabetes mellitus without complications Status: Chronic Assessment and Plan: * follow accu-cheks * glycemic control per hospitalist Will continue to follow. L Subjective Date/time seen: 07/03/24 10:08 Interval history: Follow-up for acute kidney injury/acute renal failure on chronic kidney disease. Renal function/creatinine is about the same although his potassium remains elevated despite current/ongoing medical therapy; breathing/respiratory status seems about the same as well; no apparent distress noted other than he reports he still feels short of breath. Exam 2 Narrative: General: elderly but WD/WN male in NAD; on BiPAP Heart: normal S1 and S2; no rub Lungs: coarse breath sounds with a few crackles at baseline Abdomen: soft, nontender, nondistended, positive bowel sounds Extremities: no cyanosis or clubbing; 2+ edema Skin: warm and intact Objective Data Vital Signs Vital Signs: Vital Signs Temp Pulse Resp BP Pulse Ox O2 Del Method O2 Flow Rate 07/03/24 08:10 60 24 H 07/03/24 08:02 60 24 H 07/03/24 08:02 97 Nasal Cannula 2 07/03/24 08:00 60 07/03/24 08:00 97 Nasal Cannula 2 07/03/24 07:38 97.5 F L 55 L 24 H 109/59 L 99 07/03/24 05:52 60 07/03/24 04:00 98.0 F 60 19 141/45 H 97 07/03/24 04:00 60 07/03/24 03:59 60 21 H 07/03/24 03:59 60 21 H 99 BiPAP 07/03/24 03:51 97 BiPAP 07/03/24 00:30 64 21 H 07/03/24 00:30 64 24 H 98 BiPAP 07/03/24 00:00 97.9 F 62 18 105/72 99 07/03/24 00:00 76 07/02/24 22:00 60 07/02/24 21:00 60 24 H 96 BiPAP 07/02/24 20:25 64 20 07/02/24 20:25 64 20 98 Nasal Cannula 2 07/02/24 20:00 97.6 F 65 22 H 109/54 L 98 07/02/24 20:00 60 07/02/24 16:35 60 21 H 07/02/24 16:31 60 22 H 98 BiPAP 07/02/24 16:29 60 25 H 07/02/24 16:00 60 07/02/24 15:33 97.5 F L 60 24 H 106/46 L 99 07/02/24 14:10 60 21 H 07/02/24 14:01 66 20 07/02/24 12:36 62 28 H 93 BiPAP 07/02/24 12:00 65 07/02/24 12:00 97.5 F L 60 27 H 95/39 L 91 Intake/Output Intake/Output: Intake & Output 06/30/24 07/01/24 07/02/24 07/03/24 23:59 23:59 23:59 23:59 Intake Total 1531 990 700 240 Output Total 800 550 650 200 Balance 731 440 50 40 Meds/Results Medications: Active Medications Generic Name Dose Route Start Last Admin Trade Name Freq PRN Reason Stop Dose Admin Acetaminophen 650 mg 06/25/24 23:05 Acetaminophen 325 Mg Tablet PO Q4H PRN Mild Pain (1-3) or Fever Albuterol/Ipratropium 3 ml 07/02/24 13:50 07/03/24 08:02 Ipratropium 0.5 Mg/Albuterol Sulfate 2.5 Mg Ampul.Neb 3 Ml INHALATION 3 ml Q4HRT WARD Administration Aspirin 81 mg 07/01/24 09:00 07/03/24 08:30 Aspirin 81 Mg Enteric Tablet PO 81 mg QAM WARD Administration Atorvastatin Calcium 40 mg 06/25/24 23:10 07/02/24 19:49 Atorvastatin 40 Mg Tablet PO 40 mg HS WARD Administration Cyanocobalamin 1,000 mcg 06/26/24 09:00 07/03/24 08:30 Cyanocobalamin 1,000 Mcg Tablet PO 1,000 mcg DAILY WARD Administration Dextrose 12.5 gm 06/26/24 04:23 Dextrose 50% 25 Gm/50 Ml Syringe IV PUSH PRN PRN Hypoglycemia Protocol Epoetin Edwin-epbx 20,000 units 07/03/24 11:15 Epoetin Edwin-Epbx 20,000 Units/Ml Vial SUB-Q 07/03/24 11:16 ONCE ONE Epoetin Edwin-epbx 10,000 units 07/04/24 09:00 Epoetin Edwin-Epbx 10,000 Units/Ml Vial SUB-Q TUTHSA@09 WARD Ferrous Sulfate 325 mg 06/26/24 09:00 07/03/24 08:30 Ferrous Sulfate [address] PO 325 mg BID WARD Administration Finasteride 5 mg 06/26/24 09:00 07/03/24 08:30 Finasteride 5 Mg Tablet PO 5 mg DAILY WARD Administration Folic Acid 1 mg 06/26/24 09:00 07/03/24 08:30 Folic Acid 1 Mg Tablet PO 1 mg DAILY WARD Administration Furosemide 40 mg 06/26/24 09:00 06/27/24 13:07 Furosemide Inj 40 Mg/4 Ml Vial IV PUSH Not Given BID WARD Glucagon 1 mg 06/26/24 04:23 Glucagon For Inj 1 Mg Vial IM PRN PRN Hypoglycemia Protocol Glucose 15 gm 06/26/24 04:23 Glucose Oral Gel 15 Gm Of Glucse In 37.5 Gm Tube PO PRN PRN Hypoglycemia Protocol Dextrose 1,000 mls @ 100 mls/hr 06/26/24 04:23 Dextrose 5% 1,000 Ml IVPB PRN PRN Hypoglycemia Protocol Insulin Aspart 4 - 8 units 06/26/24 08:00 07/03/24 08:31 Insulin Aspart (*Bkc) 100 Units/Ml SUB-Q 6 units TIDWM WARD Administration Protocol Insulin Aspart 2 - 4 units 06/26/24 21:00 07/02/24 21:11 Insulin Aspart (*Bkc) 100 Units/Ml SUB-Q 3 units HS WARD Administration Protocol Insulin Glargine 8 units 06/28/24 21:00 07/02/24 19:51 Insulin Glargine (*Bkc) 100 Units/Ml SUB-Q 8 units HS WARD Administration Isosorbide Mononitrate 15 mg 07/03/24 09:00 Isosorbide Mononitrate 15 Mg Tab.Er.24h PO BID@0900,1600 [facility] Methylprednisolone Sodium Succinate 40 mg 07/02/24 13:40 07/03/24 05:35 Methylprednisolone Sod Succ 40 Mg Vial IV PUSH 40 mg Q8HR WARD Administration Metoprolol Succinate 25 mg 06/26/24 09:00 07/02/24 10:21 Metoprolol Succinate Ext Rel 25 Mg Tabcr PO Not Given QAM [facility] Ondansetron HCl 4 mg 06/25/24 23:05 Ondansetron Inj 4 Mg/2 Ml Vial IV PUSH Q6H PRN Nausea And Vomiting Pantoprazole Sodium 40 mg 06/26/24 09:00 07/03/24 08:30 Pantoprazole 40 Mg Tablet PO 40 mg QAM [facility] Administration Pregabalin 25 mg 06/26/24 21:00 07/02/24 19:49 Pregabalin (*Crx) 25 Mg Capsule PO 25 mg HS WARD Administration Fluticasone/Salmeterol 2 puff 07/02/24 20:00 07/03/24 08:01 Fluticasone/Salmeterol 115-21 Mcg Inhaler 1 Puff INHALATION 2 puff Q12HRT WARD Administration Sodium Zirconium Cyclosilicate 10 gm 07/02/24 16:50 07/02/24 19:50 Sodium Zirconium Cyclosilicate 10 Gm Powd.Pack PO 10 gm TID@1000,1500,2200 WARD Administration Tamsulosin HCl 0.4 mg 06/25/24 23:10 07/02/24 19:49 Tamsulosin Hcl 0.4 Mg Capsule PO 0.4 mg QHS WARD Administration Vitamin D 1,000 units 06/26/24 09:00 07/03/24 08:30 Cholecalciferol 1,000 Units Tablet PO 1,000 units DAILY WARD Administration Radiology Results: ITS Impressions Head CT 06/24/24 18:31 IMPRESSION: Hypodensity in the left posterior temporal/occipital area which is suggestive of acute/subacute infarct with multiple hyperdensities which may be hemorrhagic areas. Calcification is less likely. MRI evaluation is advised. Physician: Manav Duarte MD Was notified with the result of the patient at time 6:45 PM on June 24, 2024. Head/Neck CTA 06/24/24 19:43 IMPRESSION: 1. Nonvisualization of the distal left posterior cerebral artery. Otherwise normal CTA of the head. 2. CTA of the neck. Shows severe calcification of the carotid arteries. Percent stenosis per NASCET criteria is 60% on the right side. 3. Bilateral pleural effusion with adjacent atelectasis versus pneumonia. Venous Doppler Study 06/26/24 12:46 IMPRESSION: 1. No deep venous thrombosis. Pulmonary Perfusion Imaging 06/26/24 13:58 IMPRESSION: 1. No immediate probability for pulmonary embolism. ADDENDUM: 07/02/24 1044 CORRECTION: There is a dictation error in the impression section. With the correction capitalized this should read- 1. INTERMEDIATE probability for pulmonary embolism. This correction was discussed with Dior Ugarte, the nurse caring for the patient, at 10:40 AM. Labs Labs: Laboratory Tests 07/03/24 04:39 04/04/25 04:39 Calcium 8.1 L Magnesium 2.8 H Total Bilirubin 0.5 AST 21 ALT 16 Alkaline Phosphatase 72 Total Creatine Kinase Total Protein 6.0 L Albumin 3.4 L
[2024-07-03 11:20] LABS: Creatine Kinase 28 U/L (55-170)
[2024-07-03 12:10] LABS: Glucose Point of Care 327 mg/dl (65-105)
[2024-07-03 12:17] LABS: Add Urine Microscopic? YES; Appearance Urine Clear (Clear); Bacteria Urine None Seen /hpf; Bilirubin Urine Negative (Negative); Blood Urine Negative (Negative); Color Urine Yellow (Yellow); Glucose Urine UA 2+ mg/dL (Negative); Ketones Urine Negative (Negative); Leukocyte Esterase Ur Negative LEU/UL (Negative); Nitrate Urine Negative (Negative); Non Pathogenic Casts 0-2; Protein Urine Trace mg/dL (Negative); RBC Urine 0-2 /hpf (0-2); Specific Grav Ur 1.016 (1.001-1.035); Squamous Epithelial Cell Urine None Seen /hpf (Few); Urobilinogen Urine 0.2 mg/dL (<2.0); WBC Urine 0-5 /hpf (0-3)
[2024-07-03] MEDS: EPOETIN ALFA-EPBX 20,000 UNITS/ML VIAL 20000 UNITS SUB-Q (12:19)
[2024-07-03] MEDS: SODIUM ZIRCONIUM CYCLOSILICATE 10 GM POWD.PACK PO ×3 (12:19→22:05)
[2024-07-03] MEDS: ISOSORBIDE MONONITRATE 15 MG TAB.ER.24H PO (12:20)
[2024-07-03] MEDS: ACETAMINOPHEN 325 MG TABLET 650 MG PO ×2 (12:20→17:50)
[2024-07-03 12:21] LABS: Urea Random Urine 579 MG/DL
[2024-07-03 12:23] LABS: Total Protein Urine Random 20 mg/dL
[2024-07-03 12:28] LABS: Sodium Urine Random 16 meq/L
--- NOTE | 2024-07-03 12:32 | PCOTNOTE ---
Attempted to see Patient at this time. Patient's family present in the room, verbalized he is having shortness of breath. Patient addressed and refused to participate, stated to short of breath, not today .
[2024-07-03 12:35] LABS: Total Protein Urine Random 20 mg/dL
[2024-07-03 12:40] LABS: Eosinophil Urine None Seen % (None Seen); Urine Eos QC 2nd Tech Confirmed
[2024-07-03] MEDS: polyethylene glycoL 3350 17 GM POWD.PACK PO (13:58)
--- NOTE | 2024-07-03 14:28 | PCPTNOTE ---
Patient refused treatment this session. Patient state he has had a rough day due to SOB and is not up to doing therapy this afternoon.
[2024-07-03 16:18] LABS: Glucose Point of Care 268 mg/dl (65-105)
[2024-07-03 20:05] LABS: Glucose Point of Care 288 mg/dl (65-105)
[2024-07-03] MEDS: INSULIN GLARGINE (*BKC) 100 UNITS/ML 8 UNITS SUB-Q (20:15)
[2024-07-03] MEDS: ATORVASTATIN 40 MG TABLET PO (20:16)
[2024-07-03] MEDS: TAMSULOSIN HCL 0.4 MG CAPSULE PO (20:16)
[2024-07-04] VITALS (24 sets, daily range): BP systolic 97–115; BP diastolic 35–47; PULSE 58–96; RESP 19–30; TEMP 36.6–36.9; O2SAT 96–99
[2024-07-04] MEDS: IPRATROPIUM 0.5 MG/ALBUTEROL SULFATE 2.5 MG AMPUL.NEB 3 ML INHALATION ×5 (03:00→19:56)
[2024-07-04 04:26] LABS: Hematocrit 27.1 % (42.0-52.0); Hemoglobin 8.3 g/dL (14.0-18.0); Immature Granulocyte Absolute 0.03 K/mm3 (0.00-0.031); Immature Granulocyte Percent A 0.4 % (0-0.5); Lymphocytes Absolute Auto 0.08 K/mm3 (0.9-3.2); Lymphocytes Percent Auto 1.1 % (18.3-44.2); Mean Corpuscular HGB Conc 30.6 g/dl (32-36); Mean Corpuscular Hemoglobin 30.7 pg (26-34); Mean Corpuscular Volume 100.4 fl (80-100); Monocytes Absolute Auto 0.1 K/mm3 (0.1-0.6); Monocytes Percent Auto 0.8 % (2.6-8.5); Neutrophils Absolute Auto 7.2 K/mm3 (1.3-6.7); Neutrophils Percent Auto 97.7 % (45.5-73.1); Platelet Count Result 104 k/mm3 (150-375); Red Cell Distribution Width 15.9 % (11.5-14.5); White Blood Count 7.3 K/mm3 (4.5-10.0)
[2024-07-04 04:36] LABS: Alanine Aminotransferase 15 U/L (6-50); Albumin Level 3.4 g/dL (3.5-5.1); Alkaline Phosphatase 81 U/L (38-126); Anion Gap 11 mmol/L (4-12); Aspartate Amino Transferase 22 U/L (17-59); Bilirubin,Total 0.5 mg/dL (0.2-1.3); Calcium 7.9 mg/dL (8.4-10.2); Carbon Dioxide 31 mmol/L (22-30); Chloride 88 mmol/L (98-107); Estimated CRCL calculation 21 ml/min; Estimated Glomerular Filt Rate 22; Glucose 313 mg/dL (65-110); Potassium 5.9 mmol/L (3.4-5.0); Sodium 130 mmol/L (137-145)
[2024-07-04 04:56] LABS: Blood Urea Nitrogen 122 mg/dL (9-20)
[2024-07-04 05:07] LABS: Hepatitis B Surface Antigen Negative (Negative)
[2024-07-04 05:25] LABS: Hepatitis B Surface Anti Res Negative
[2024-07-04] MEDS: methylPREDNISolone SOD SUCC 40 MG VIAL IV PUSH ×2 (05:25→15:06)
[2024-07-04 08:18] LABS: Glucose Point of Care 346 mg/dl (65-105)
[2024-07-04] MEDS: FLUTICASONE/SALMETEROL 115-21 MCG INHALER 1 PUFF 2 PUFF INHALATION ×2 (08:51→19:56)
[2024-07-04] MEDS: FOLIC ACID 1 MG TABLET PO (10:12)
[2024-07-04] MEDS: polyethylene glycoL 3350 17 GM POWD.PACK PO (10:12)
[2024-07-04] MEDS: ISOSORBIDE MONONITRATE 15 MG TAB.ER.24H PO ×2 (10:12→15:06)
[2024-07-04] MEDS: FINASTERIDE 5 MG TABLET PO (10:12)
[2024-07-04] MEDS: SODIUM ZIRCONIUM CYCLOSILICATE 10 GM POWD.PACK PO ×2 (10:12→15:07)
[2024-07-04] MEDS: ASPIRIN 81 MG ENTERIC TABLET PO (10:12)
[2024-07-04] MEDS: PANTOPRAZOLE 40 MG TABLET PO (10:13)
[2024-07-04] MEDS: INSULIN ASPART (*BKC) 100 UNITS/ML SUB-Q ×4 (10:13→21:20)
[2024-07-04] MEDS: CHOLECALCIFEROL 1,000 UNITS TABLET 1000 UNITS PO (10:13)
[2024-07-04] MEDS: METOPROLOL SUCCINATE EXT REL 25 MG TABCR PO (10:13)
[2024-07-04] MEDS: FERROUS SULFATE 325 MG TABLET DR PO ×2 (10:13→16:39)
[2024-07-04] MEDS: CYANOCOBALAMIN 1,000 MCG TABLET 1000 MCG PO (10:13)
[2024-07-04] MEDS: EPOETIN ALFA-EPBX 10,000 UNITS/ML VIAL 10000 UNITS SUB-Q (10:41)
--- NOTE | 2024-07-04 11:12 | P.PNNP_ITS ---
Progress Note: A&P Assessment and Plan (1) Acute kidney injury: Code(s): N17.9 - Acute kidney failure, unspecified Status: Acute Assessment and Plan: * noted on admission * suspect due to several issues: * volume overload * infection (UTI) * previous IV diuresis * outpatient diuretics prior to admission * hypoxia * relative hypotension * contrast exposure (although creatinine elevated even prior to this...) * Outpatient baseline of creatinine seems to be around 1.8-2.3. * His creatinine was 1.9 when he was admitted but that was when he was severely volume overloaded. * He was diuresed and his creatinine went. * I suspect that either the kidneys got worse or his heart is worse and he just needs more diuretics and a higher creatinine to achieve euvolemia. We could continue holding his diuretics and maybe his creatinine would not get better but he can not walk around in heart failure either. So I think we ought to go ahead and can restart the diuretics and except a mild rise in his creatinine. (2) Chronic kidney disease, stage IV (severe): Code(s): N18.4 - Chronic kidney disease, stage 4 (severe) Status: Chronic Assessment and Plan: * baseline creatinine runs ~ 1.8 - 2.3mg/dl [facility] * however, given his multiple admissions for volume overload/acute hypoxic respiratory failure and the need for diuresis, his creatinine has run in the 3ish range * furthermore, he tends have significant azotemia with BUNs running in the 100s+ range (presumably due to diuretics and prerenal factors) * due to hypertension, diabetes, CHF/cardiomyopathy with necessity of chronic diuretic therapy, vascular disease and age-related change * follows with Nephrology at [facility] * according to his , there have been ongoing discussions about dialysis with his palliative care team at [facility]. Strangely, with a GFR of 24, we would not normally be talking about imminent dialysis. I wonder if his true GFR baseline is closer to the mid teens. 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 Leaflets not well visualized. Peak velocity of 2.5m/s, mean gradient of 13mmHg * no aortic valve regurgitation * mitral valve annulus is severely calcified * mitral valve has thickened leaflets * mild mitral valve regurgitation * moderate tricuspid valve regurgitation * pulmonary hypertension, estimated pulmonary arterial systolic pressure is 66 mmHg * CXR results noted * Restart diuretics (5) COPD (chronic obstructive pulmonary disease): Code(s): J44.9 - Chronic obstructive pulmonary disease, unspecified Status: Chronic Assessment and Plan: * exacerbation suspected on admission * follow ABGs * BiPAP as needed * on nebulizers/bronchodilators and IV steroids * continue supportive therapy (6) Acute ischemic stroke: Code(s): I63.9 - Cerebral infarction, unspecified Status: Acute Assessment and Plan: * head CT shown hypodensity in the left posterior temporal/occipital area suggestive of acute/subacute infarct with multiple hyperdensities which may be hemorrhagic areas * head/neck CTA showed severe calcification of the carotid arteries 60% on the right side, bilateral pleural effusion with adjacent atelectasis versus pneumonia * unable to do MRI brain due to pacemaker * Neurololgy following with recommendations * continue PT/OT/ST (7) Sleep apnea: Code(s): G47.30 - Sleep apnea, unspecified Status: Chronic Assessment and Plan: * known history * was not using CPAP machine before admission * BIPAP when resting during the day and at night * noted issues with CO2 retention by ABGs (8) Chronic anemia: Code(s): D64.9 - Anemia, unspecified Status: Chronic Assessment and Plan: * suspect related to CHRISTIAN, CKD, and acute illness * anemia studies also note iron deficiency * on oral iron * s/p IV venofer * will dose with Epogen while hospitalized * hb stable. (9) Hypertension: Code(s): I10 - Essential (primary) hypertension Status: Chronic Assessment and Plan: * systolic 90 to 130 * follow trend of hemodynamics (10) DM2 (diabetes mellitus, type 2): Code(s): E11.9 - Type 2 diabetes mellitus without complications Status: Chronic Assessment and Plan: * follow accu-cheks * glycemic control per hospitalist Subjective Date/time seen: 07/04/24 11:12 Interval history: Patient short of breath. He is on a BiPAP machine. is in the room Exam Narrative: General: elderly but WD/WN male in NAD; on BiPAP Heart: normal S1 and S2; no rub or gallop Lungs: coarse breath sounds with a few crackles at baseline Abdomen: soft, nontender, nondistended, positive bowel sounds Extremities: no cyanosis or clubbing; 2+ edema bilaterally Skin: No rash Objective Data Vital Signs Vital Signs: Vital Signs - 24 hr 07/03/24 11:30 07/03/24 11:40 07/03/24 12:00 Temperature 97.8 F Pulse Rate 60 60 60 Respiratory Rate 22 H 22 H 22 H Blood Pressure 109/45 L Pulse Oximetry 100 Oxygen Delivery Oxygen Flow Rate Fraction of Inspired Oxygen 07/03/24 12:00 07/03/24 12:00 07/03/24 14:00 Temperature Pulse Rate 60 74 Respiratory Rate Blood Pressure Pulse Oximetry Oxygen Delivery BiPAP Oxygen Flow Rate Fraction of Inspired Oxygen 07/03/24 15:45 07/03/24 15:55 07/03/24 16:00 Temperature 97.6 F Pulse Rate 60 62 93 Respiratory Rate 20 20 28 H Blood Pressure 101/52 L Pulse Oximetry 95 Oxygen Delivery Oxygen Flow Rate Fraction of Inspired Oxygen 07/03/24 16:00 07/03/24 16:00 07/03/24 18:00 Temperature Pulse Rate 60 60 Respiratory Rate Blood Pressure Pulse Oximetry 98 Oxygen Delivery Nasal Cannula Oxygen Flow Rate 2 Fraction of Inspired Oxygen 07/03/24 19:07 07/03/24 19:55 07/03/24 19:55 Temperature 97.5 F L Pulse Rate 60 90 Respiratory Rate 19 22 H Blood Pressure 92/60 L Pulse Oximetry 99 97 97 Oxygen Delivery BiPAP BiPAP Oxygen Flow Rate Fraction of Inspired Oxygen 07/03/24 19:55 07/03/24 20:00 07/03/24 20:00 Temperature Pulse Rate 90 60 Respiratory Rate 22 H Blood Pressure Pulse Oximetry 99 Oxygen Delivery BiPAP Oxygen Flow Rate Fraction of Inspired Oxygen 07/03/24 20:10 07/03/24 22:00 07/03/24 23:05 Temperature Pulse Rate 61 60 60 Respiratory Rate 22 H 20 Blood Pressure Pulse Oximetry 99 Oxygen Delivery BiPAP Oxygen Flow Rate Fraction of Inspired Oxygen 07/03/24 23:05 07/03/24 23:19 07/03/24 23:57 Temperature Pulse Rate 60 61 Respiratory Rate 20 22 H Blood Pressure Pulse Oximetry 98 Oxygen Delivery BiPAP Oxygen Flow Rate Fraction of Inspired Oxygen 07/04/24 00:00 07/04/24 00:00 07/04/24 02:00 Temperature 98.3 F Pulse Rate 82 60 60 Respiratory Rate 24 H Blood Pressure 97/40 L Pulse Oximetry 97 Oxygen Delivery Oxygen Flow Rate Fraction of Inspired Oxygen 07/04/24 03:00 07/04/24 03:00 07/04/24 03:06 Temperature Pulse Rate 70 70 60 Respiratory Rate 22 H 22 H 20 Blood Pressure Pulse Oximetry 96 Oxygen Delivery BiPAP Oxygen Flow Rate Fraction of Inspired Oxygen 07/04/24 03:43 07/04/24 04:00 07/04/24 04:00 Temperature 97.9 F Pulse Rate 96 66 Respiratory Rate 20 Blood Pressure 114/35 L Pulse Oximetry 96 98 Oxygen Delivery BiPAP Oxygen Flow Rate Fraction of Inspired Oxygen 07/04/24 05:53 07/04/24 08:00 07/04/24 08:55 Temperature 97.8 F Pulse Rate 65 65 76 Respiratory Rate 23 H 30 H Blood Pressure 115/47 L Pulse Oximetry 99 96 Oxygen Delivery BiPAP Oxygen Flow Rate Fraction of Inspired Oxygen 07/04/24 08:55 07/04/24 08:55 07/04/24 10:13 Temperature Pulse Rate 76 74 Respiratory Rate 30 H Blood Pressure Pulse Oximetry 97 Oxygen Delivery Nasal Cannula Oxygen Flow Rate 2 Fraction of Inspired Oxygen Intake/Output Intake/Output: Intake & Output 07/01/24 07/02/24 07/03/24 07/04/24 23:59 23:59 23:59 23:59 Intake Total 990 700 480 740 Output Total 550 650 650 350 Balance 440 50 -170 390 Meds/Results Medications: Active Medications Generic Name Dose Route Start Last Admin Trade Name Freq PRN Reason Stop Dose Admin Acetaminophen 650 mg 06/25/24 23:05 07/03/24 17:50 Acetaminophen 325 Mg Tablet PO 650 mg Q4H PRN Administration Mild Pain (1-3) or Fever Albuterol/Ipratropium 3 ml 07/02/24 13:50 07/04/24 08:51 Ipratropium 0.5 Mg/Albuterol Sulfate 2.5 Mg Ampul.Neb 3 Ml INHALATION 3 ml Q4HRT WARD Administration Aspirin 81 mg 07/01/24 09:00 07/04/24 10:12 Aspirin 81 Mg Enteric Tablet PO 81 mg QAM WARD Administration Atorvastatin Calcium 40 mg 06/25/24 23:10 07/03/24 20:16 Atorvastatin 40 Mg Tablet PO 40 mg HS WARD Administration Cyanocobalamin 1,000 mcg 06/26/24 09:00 07/04/24 10:13 Cyanocobalamin 1,000 Mcg Tablet PO 1,000 mcg DAILY WARD Administration Dextrose 12.5 gm 06/26/24 04:23 Dextrose 50% 25 Gm/50 Ml Syringe IV PUSH PRN PRN Hypoglycemia Protocol Epoetin Edwin-epbx 10,000 units 07/04/24 09:00 07/04/24 10:41 Epoetin Edwin-Epbx 10,000 Units/Ml Vial SUB-Q 10,000 units TUTHSA@09 WARD Administration Ferrous Sulfate 325 mg 06/26/24 09:00 07/04/24 10:13 Ferrous Sulfate [address] PO 325 mg BID WARD Administration Finasteride 5 mg 06/26/24 09:00 07/04/24 10:12 Finasteride 5 Mg Tablet PO 5 mg DAILY WARD Administration Folic Acid 1 mg 06/26/24 09:00 07/04/24 10:12 Folic Acid 1 Mg Tablet PO 1 mg DAILY WARD Administration Furosemide 40 mg 06/26/24 09:00 06/27/24 13:07 Furosemide Inj 40 Mg/4 Ml Vial IV PUSH Not Given BID WARD Glucagon 1 mg 06/26/24 04:23 Glucagon For Inj 1 Mg Vial IM PRN PRN Hypoglycemia Protocol Glucose 15 gm 06/26/24 04:23 Glucose Oral Gel 15 Gm Of Glucse In 37.5 Gm Tube PO PRN PRN Hypoglycemia Protocol Dextrose 1,000 mls @ 100 mls/hr 06/26/24 04:23 Dextrose 5% 1,000 Ml IVPB PRN PRN Hypoglycemia Protocol Insulin Aspart 4 - 8 units 06/26/24 08:00 07/04/24 10:13 Insulin Aspart (*Bkc) 100 Units/Ml SUB-Q 6 units TIDWM WARD Administration Protocol Insulin Aspart 2 - 4 units 06/26/24 21:00 07/03/24 20:15 Insulin Aspart (*Bkc) 100 Units/Ml SUB-Q 2 units HS [facility] Administration Protocol Insulin Glargine 8 units 06/28/24 21:00 07/03/24 20:15 Insulin Glargine (*Bkc) 100 Units/Ml SUB-Q 8 units HS [facility] Administration Isosorbide Mononitrate 15 mg 07/03/24 09:00 07/04/24 10:12 Isosorbide Mononitrate 15 Mg Tab.Er.24h PO 15 mg BID@0900,1600 WARD Administration Methylprednisolone Sodium Succinate 40 mg 07/02/24 13:40 07/04/24 05:25 Methylprednisolone Sod Succ 40 Mg Vial IV PUSH 40 mg Q8HR WARD Administration Metoprolol Succinate 25 mg 06/26/24 09:00 07/04/24 10:13 Metoprolol Succinate Ext Rel 25 Mg Tabcr PO 25 mg QAM WARD Administration Ondansetron HCl 4 mg 06/25/24 23:05 Ondansetron Inj 4 Mg/2 Ml Vial IV PUSH Q6H PRN Nausea And Vomiting Pantoprazole Sodium 40 mg 06/26/24 09:00 07/04/24 10:13 Pantoprazole 40 Mg Tablet PO 40 mg QAM WARD Administration Polyethylene Glycol 17 gm 07/04/24 09:00 07/04/24 10:12 Polyethylene Glycol 3350 17 Gm Powd.Pack PO 17 gm QAM WARD Administration Pregabalin 25 mg 06/26/24 21:00 07/03/24 20:26 Pregabalin (*Crx) 25 Mg Capsule PO Not Given [facility] Fluticasone/Salmeterol 2 puff 07/02/24 20:00 07/04/24 08:51 Fluticasone/Salmeterol 115-21 Mcg Inhaler 1 Puff INHALATION 2 puff Q12HRT WARD Administration Sodium Zirconium Cyclosilicate 10 gm 07/02/24 16:50 07/04/24 10:12 Sodium Zirconium Cyclosilicate 10 Gm Powd.Pack PO 10 gm TID@1000,1500,2200 WARD Administration Tamsulosin HCl 0.4 mg 06/25/24 23:10 07/03/24 20:16 Tamsulosin Hcl 0.4 Mg Capsule PO 0.4 mg QHS WARD Administration Vitamin D 1,000 units 06/26/24 09:00 07/04/24 10:13 Cholecalciferol 1,000 Units Tablet PO 1,000 units DAILY WARD Administration Radiology Results: ITS Impressions Head CT 06/24/24 18:31 IMPRESSION: Hypodensity in the left posterior temporal/occipital area which is suggestive of acute/subacute infarct with multiple hyperdensities which may be hemorrhagic areas. Calcification is less likely. MRI evaluation is advised. Physician: Manav Duarte MD Was notified with the result of the patient at time 6:45 PM on June 24, 2024. Head/Neck CTA 06/24/24 19:43 IMPRESSION: 1. Nonvisualization of the distal left posterior cerebral artery. Otherwise normal CTA of the head. 2. CTA of the neck. Shows severe calcification of the carotid arteries. Percent stenosis per NASCET criteria is 60% on the right side. 3. Bilateral pleural effusion with adjacent atelectasis versus pneumonia. Venous Doppler Study 06/26/24 12:46 IMPRESSION: 1. No deep venous thrombosis. Pulmonary Perfusion Imaging 06/26/24 13:58 IMPRESSION: 1. No immediate probability for pulmonary embolism. ADDENDUM: 07/02/24 1044 CORRECTION: There is a dictation error in the impression section. With the correction capitalized this should read- 1. INTERMEDIATE probability for pulmonary embolism. This correction was discussed with Dior Ugarte, the nurse caring for the patient, at 10:40 AM. Chest X-Ray 07/03/24 11:30 Impression: Small bilateral pleural effusions with mild bibasilar pulmonary edema/atelectasis. Stable cardiomegaly, status post CABG and aortic valve replacement, with pacemaker device. Renal Ultrasound 07/03/24 20:41 IMPRESSION: No hydronephrosis or renal calculi. Findings suggesting medical renal disease. Labs Labs: Laboratory Results - last 24 hr 07/03/24 07/03/24 07/03/24 04:38 11:38 12:00 WBC RBC Hgb Hct MCV MCH MCHC RDW Plt Count MPV Immature Gran % (Auto) Neut % (Auto) Lymph % (Auto) Towns % (Auto) Eos % (Auto) Baso % (Auto) Lymph # (Auto) Towns # (Auto) Eos # (Auto) Baso # (Auto) Abs Immat Gran (auto) Absolute Neuts (auto) Absolute Nucleated RBC Nucleated RBC % Sodium Potassium Chloride Carbon Dioxide Anion Gap BUN Creatinine Estim Creat Clear Calc Estimated GFR Glucose POC Capillary Glucose 327 H Calcium Total Bilirubin AST ALT Alkaline Phosphatase Total Creatine Kinase 28 L Total Protein Albumin Urine Color Yellow Urine Appearance Clear Urine pH 5.0 Ur Specific [place] 1.016 Urine Protein Trace Urine Glucose (UA) 2+ H Urine Ketones Negative Ur Blood (Man) Negative Urine Nitrate Negative Urine Bilirubin Negative Urine Urobilinogen 0.2 Leukocyte Esterase Rfl Negative Urine RBC 0-2 Urine WBC 0-5 Ur Squamous Epith Cells None seen Urine Bacteria None seen Urine Casts 0-2 Urine Eosinophils None seen U Random Total Protein 20 Ur Random Sodium Ur Random Urea Urine Creatinine Protein/Creat Ratio 2 Hep Bs Antigen Hep Bs Antibody 07/03/24 07/03/24 07/03/24 12:00 16:16 20:00 WBC RBC Hgb Hct MCV MCH MCHC RDW Plt Count MPV Immature Gran % (Auto) Neut % (Auto) Lymph % (Auto) Towns % (Auto) Eos % (Auto) Baso % (Auto) Lymph # (Auto) Towns # (Auto) Eos # (Auto) Baso # (Auto) Abs Immat Gran (auto) Absolute Neuts (auto) Absolute Nucleated RBC Nucleated RBC % Sodium Potassium Chloride Carbon Dioxide Anion Gap BUN Creatinine Estim Creat Clear Calc Estimated GFR Glucose POC Capillary Glucose 268 H 288 H Calcium Total Bilirubin AST ALT Alkaline Phosphatase Total Creatine Kinase Total Protein Albumin Urine Color Urine Appearance Urine pH Ur Specific [place] Urine Protein Urine Glucose (UA) Urine Ketones Ur Blood (Man) Urine Nitrate Urine Bilirubin Urine Urobilinogen Leukocyte Esterase Rfl Urine RBC Urine WBC Ur Squamous Epith Cells Urine Bacteria Urine Casts Urine Eosinophils U Random Total Protein 20 Ur Random Sodium 16 Ur Random Urea 579 Urine Creatinine 67.0 Protein/Creat Ratio 2 0.30 H Hep Bs Antigen Hep Bs Antibody 07/04/24 07/04/24 04:10 08:14 WBC 7.3 RBC 2.70 L Hgb 8.3 L Hct 27.1 L MCV 100.4 H MCH 30.7 MCHC 30.6 L RDW 15.9 H Plt Count 104 L MPV 10.0 Immature Gran % (Auto) 0.4 Neut % (Auto) 97.7 H Lymph % (Auto) 1.1 L Towns % (Auto) 0.8 L Eos % (Auto) 0.0 Baso % (Auto) 0.0 L Lymph # (Auto) 0.08 L Towns # (Auto) 0.1 Eos # (Auto) 0.0 Baso # (Auto) 0.0 Abs Immat Gran (auto) 0.03 Absolute Neuts (auto) 7.2 H Absolute Nucleated RBC 0.000 Nucleated RBC % 0.0 Sodium 130 L Potassium 5.9 H Chloride 88 L Carbon Dioxide 31 H Anion Gap 11 BUN 122 H Creatinine 2.76 H Estim Creat Clear Calc 21 Estimated GFR 22 L Glucose 313 H POC Capillary Glucose 346 H Calcium 7.9 L Total Bilirubin 0.5 AST 22 ALT 15 Alkaline Phosphatase 81 Total Creatine Kinase Total Protein 6.0 L Albumin 3.4 L Urine Color Urine Appearance Urine pH Ur Specific [place] Urine Protein Urine Glucose (UA) Urine Ketones Ur Blood (Man) Urine Nitrate Urine Bilirubin Urine Urobilinogen Leukocyte Esterase Rfl Urine RBC Urine WBC Ur Squamous Epith Cells Urine Bacteria Urine Casts Urine Eosinophils U Random Total Protein Ur Random Sodium Ur Random Urea Urine Creatinine Protein/Creat Ratio 2 Hep Bs Antigen Negative Hep Bs Antibody Negative
[2024-07-04 11:59] LABS: Glucose Point of Care 359 mg/dl (65-105)
--- NOTE | 2024-07-04 12:48 | PM.IMPN ---
Progress Note: A&P Assessment and Plan (1) Acute ischemic stroke: Code(s): I63.9 - Cerebral infarction, unspecified Status: Acute Assessment and Plan: Head CT shown hypodensity in the left posterior temporal/occipital area suggestive of acute/subacute infarct with multiple hyperdensities which may be hemorrhagic areas Head/neck CTA showed severe calcification of the carotid arteries 60% on the right side, bilateral pleural effusion with adjacent atelectasis versus pneumonia Unable to do MRI brain due to pacemaker Continue Aspirin, lipitor PT/OT/ST neurology following (2) Acute and chronic respiratory failure with hypercapnia: Code(s): J96.22 - Acute and chronic respiratory failure with hypercapnia Status: Acute Assessment and Plan: From COPD exacerbation abg 7.249/76.1/88.6/32.5 resolving continue Nighttime BiPAP contineu IV steroid adn bronchodilator (3) CHF (congestive heart failure): Code(s): I50.9 - Heart failure, unspecified Status: Chronic Assessment and Plan: ProBNP greater than 30,000, patient has 4+ pitting edema to bilateral lower extremities Troponin 0.078> 0.078> 0.070--likely demand ischemia ECHO EF 40-45% Lasix 40mg IV bid on hold due to worsening renal function Repeat CXR showed no significant change to small to moderate-sized bilateral pleural effusions (4) Elevated d-dimer: Code(s): R79.89 - Other specified abnormal findings of blood chemistry Status: Acute Assessment and Plan: D-dimer 1.9 Will get V/Q scan negative for PE Venous Doppler LE, negative (5) DM2 (diabetes mellitus, type 2): Code(s): E11.9 - Type 2 diabetes mellitus without complications Status: Chronic Assessment and Plan: Blood sugars ranging 175-230 Hgb A1C 5.4 on 09/03/2020 Will recheck hemoglobin A1c Accu checks AC/HS High-dose SSI ordered hypoglycemic protocol in place Diabetic diet and 2 g sodium diet ordered (6) COPD (chronic obstructive pulmonary disease): Code(s): J44.9 - Chronic obstructive pulmonary disease, unspecified Status: Chronic Assessment and Plan: in exacerbation continue IV steroid, bronchodilators monitor (7) Hypertension: Code(s): I10 - Essential (primary) hypertension Status: Chronic Assessment and Plan: Blood pressure ranging 102/54 to 118/72 Continue isosorbide (8) CAD (coronary artery disease): Code(s): I25.10 - Atherosclerotic heart disease of [place] coronary artery without angina pectoris Status: Chronic Assessment and Plan: Status post CABG x5 vessel Continue atorvastatin (9) Pacemaker: Code(s): Z95.0 - Presence of cardiac pacemaker Status: Acute Assessment and Plan: Ventricular pacemaker in place EKG showed electronic ventricular pacemaker with a rate of 65, QTC 517 (10) BPH (benign prostatic hyperplasia): Code(s): N40.0 - Benign prostatic hyperplasia without lower urinary tract symptoms Status: Chronic Assessment and Plan: Continue finasteride and tamsulosin (11) Chronic anemia: Code(s): D64.9 - Anemia, unspecified Status: Chronic Assessment and Plan: Hemoglobin 9.4-->8.4 Appears to be chronic Continue ferrous sulfate isat 15 and Ferritin 43. IV Iron 400/1000mg (12) Sleep apnea: Code(s): G47.30 - Sleep apnea, unspecified Status: Chronic Assessment and Plan: Patient currently requiring BiPAP due to hypercapnia Plan CHRISTIAN on CKD , worsening Cr 2.51-->2.78 baseline is about 1.6 Lasix on hold, given worsening fluid overload, patient may need dialysis Nephrology consulted Hyperkalemia K 5.8 Started [facility] Nephrology following iron deficiency anemia Hb 8.2, isat 15 Give 400mg IV iron continue PO Iron monitor DVT prophylaxis on SCDs Subjective Date/time seen: 07/03/24 12:48 date of service is 07/03/24 Interval history: comfortable at bedside Neprhology evla noted Review of Systems Review of Systems: All systems reviewed & are unremarkable except as noted in HPI and below Exam Narrative: General: In no acute distress, well nourished Head: atraumatic, no encephalopathy Eyes: PERRLA, sclera clear ENT: moist mucous membranes, nasal passages clear Neck: supple, no JVD, no adenopathy, trachea midline Cardiac: Normal S1 and S2. No murmur, gallops or friction rubs, peripheral pulses intact. Respiratory:Inspiratory and expiratory wheezing, no other adventitious lung sounds, currently on nasal cannula with use of accessory muscles and acute respiratory distress. Gastrointestinal: soft, non-distended, non-tender, normoactive bowel sounds. : voiding without difficulty. Extremities:BUE with good hand jukebox routeman 4/5 bilaterally, 4+ pitting edema to bilateral lower extremities Skin: clean, dry, intact. No wounds or lesions. Neuro: Alert and oriented x4, cranial nerves intact, LUE weakness Psych: normal mood, normal affect, interactive Objective Data Vital Signs Vital Signs: Vital Signs - 24 hr 07/03/24 14:00 07/03/24 15:45 07/03/24 15:55 Temperature Pulse Rate 74 60 62 Respiratory Rate 20 20 Blood Pressure Pulse Oximetry Oxygen Delivery Oxygen Flow Rate Fraction of Inspired Oxygen 07/03/24 16:00 07/03/24 16:00 07/03/24 16:00 Temperature 97.6 F Pulse Rate 93 60 Respiratory Rate 28 H Blood Pressure 101/52 L Pulse Oximetry 95 98 Oxygen Delivery Nasal Cannula Oxygen Flow Rate 2 Fraction of Inspired Oxygen 07/03/24 18:00 07/03/24 19:07 07/03/24 19:55 Temperature 97.5 F L Pulse Rate 60 60 90 Respiratory Rate 19 22 H Blood Pressure 92/60 L Pulse Oximetry 99 97 Oxygen Delivery BiPAP Oxygen Flow Rate Fraction of Inspired Oxygen 07/03/24 19:55 07/03/24 19:55 07/03/24 20:00 Temperature Pulse Rate 90 Respiratory Rate 22 H Blood Pressure Pulse Oximetry 97 99 Oxygen Delivery BiPAP BiPAP Oxygen Flow Rate Fraction of Inspired Oxygen 07/03/24 20:00 07/03/24 20:10 07/03/24 22:00 Temperature Pulse Rate 60 61 60 Respiratory Rate 22 H Blood Pressure Pulse Oximetry Oxygen Delivery Oxygen Flow Rate Fraction of Inspired Oxygen 07/03/24 23:05 07/03/24 23:05 07/03/24 23:19 Temperature Pulse Rate 60 60 61 Respiratory Rate 20 20 22 H Blood Pressure Pulse Oximetry 99 Oxygen Delivery BiPAP Oxygen Flow Rate Fraction of Inspired Oxygen 07/03/24 23:57 07/04/24 00:00 07/04/24 00:00 Temperature 98.3 F Pulse Rate 82 60 Respiratory Rate 24 H Blood Pressure 97/40 L Pulse Oximetry 98 97 Oxygen Delivery BiPAP Oxygen Flow Rate Fraction of Inspired Oxygen 07/04/24 02:00 07/04/24 03:00 07/04/24 03:00 Temperature Pulse Rate 60 70 70 Respiratory Rate 22 H 22 H Blood Pressure Pulse Oximetry 96 Oxygen Delivery BiPAP Oxygen Flow Rate Fraction of Inspired Oxygen 07/04/24 03:06 07/04/24 03:43 07/04/24 04:00 Temperature 97.9 F Pulse Rate 60 96 Respiratory Rate 20 20 Blood Pressure 114/35 L Pulse Oximetry 96 98 Oxygen Delivery BiPAP Oxygen Flow Rate Fraction of Inspired Oxygen 25 07/04/24 04:00 07/04/24 05:53 07/04/24 08:00 Temperature 97.8 F Pulse Rate 66 65 65 Respiratory Rate 23 H Blood Pressure 115/47 L Pulse Oximetry 99 Oxygen Delivery Oxygen Flow Rate Fraction of Inspired Oxygen 07/04/24 08:00 07/04/24 08:00 07/04/24 08:55 Temperature Pulse Rate 65 62 76 Respiratory Rate 20 30 H Blood Pressure Pulse Oximetry 98 96 Oxygen Delivery BiPAP BiPAP Oxygen Flow Rate 2 Fraction of Inspired Oxygen 07/04/24 08:55 07/04/24 08:55 07/04/24 10:00 Temperature Pulse Rate 76 67 Respiratory Rate 30 H Blood Pressure Pulse Oximetry 97 Oxygen Delivery Nasal Cannula Oxygen Flow Rate 2 Fraction of Inspired Oxygen 07/04/24 10:13 07/04/24 11:58 07/04/24 11:58 Temperature Pulse Rate 74 77 77 Respiratory Rate 27 H 27 H Blood Pressure Pulse Oximetry 96 Oxygen Delivery BiPAP Oxygen Flow Rate Fraction of Inspired Oxygen 07/04/24 12:00 07/04/24 12:00 07/04/24 12:34 Temperature 98.4 F Pulse Rate 58 L 61 68 Respiratory Rate 23 H Blood Pressure 114/45 L Pulse Oximetry 97 Oxygen Delivery Oxygen Flow Rate Fraction of Inspired Oxygen Intake/Output Intake/Output: Intake & Output 07/01/24 07/02/24 07/03/24 07/04/24 23:59 23:59 23:59 23:59 Intake Total 990 700 480 980 Output Total 550 650 650 350 Balance 440 50 -170 630 Meds/Results Medications: Active Medications Generic Name Dose Route Start Last Admin Trade Name Freq PRN Reason Stop Dose Admin Acetaminophen 650 mg 06/25/24 23:05 07/03/24 17:50 Acetaminophen 325 Mg Tablet PO 650 mg Q4H PRN Administration Mild Pain (1-3) or Fever Albuterol/Ipratropium 3 ml 07/02/24 13:50 07/04/24 11:56 Ipratropium 0.5 Mg/Albuterol Sulfate 2.5 Mg Ampul.Neb 3 Ml INHALATION 3 ml Q4HRT WARD Administration Aspirin 81 mg 07/01/24 09:00 07/04/24 10:12 Aspirin 81 Mg Enteric Tablet PO 81 mg QAM WARD Administration Atorvastatin Calcium 40 mg 06/25/24 23:10 07/03/24 20:16 Atorvastatin 40 Mg Tablet PO 40 mg HS WARD Administration Cyanocobalamin 1,000 mcg 06/26/24 09:00 07/04/24 10:13 Cyanocobalamin 1,000 Mcg Tablet PO 1,000 mcg DAILY WARD Administration Dextrose 12.5 gm 06/26/24 04:23 Dextrose 50% 25 Gm/50 Ml Syringe IV PUSH PRN PRN Hypoglycemia Protocol Epoetin Edwin-epbx 10,000 units 07/04/24 09:00 07/04/24 10:41 Epoetin Edwin-Epbx 10,000 Units/Ml Vial SUB-Q 10,000 units TUTHSA@09 WARD Administration Ferrous Sulfate 325 mg 06/26/24 09:00 07/04/24 10:13 Ferrous Sulfate [address] PO 325 mg BID WARD Administration Finasteride 5 mg 06/26/24 09:00 07/04/24 10:12 Finasteride 5 Mg Tablet PO 5 mg DAILY WARD Administration Folic Acid 1 mg 06/26/24 09:00 07/04/24 10:12 Folic Acid 1 Mg Tablet PO 1 mg DAILY WARD Administration Furosemide 40 mg 06/26/24 09:00 06/27/24 13:07 Furosemide Inj 40 Mg/4 Ml Vial IV PUSH Not Given BID WARD Glucagon 1 mg 06/26/24 04:23 Glucagon For Inj 1 Mg Vial IM PRN PRN Hypoglycemia Protocol Glucose 15 gm 06/26/24 04:23 Glucose Oral Gel 15 Gm Of Glucse In 37.5 Gm Tube PO PRN PRN Hypoglycemia Protocol Dextrose 1,000 mls @ 100 mls/hr 06/26/24 04:23 Dextrose 5% 1,000 Ml IVPB PRN PRN Hypoglycemia Protocol Insulin Aspart 4 - 8 units 06/26/24 08:00 07/04/24 12:05 Insulin Aspart (*Bkc) 100 Units/Ml SUB-Q 8 units TIDWM WARD Administration Protocol Insulin Aspart 2 - 4 units 06/26/24 21:00 07/03/24 20:15 Insulin Aspart (*Bkc) 100 Units/Ml SUB-Q 2 units HS [facility] Administration Protocol Insulin Glargine 8 units 06/28/24 21:00 07/03/24 20:15 Insulin Glargine (*Bkc) 100 Units/Ml SUB-Q 8 units HS [facility] Administration Isosorbide Mononitrate 15 mg 07/03/24 09:00 07/04/24 10:12 Isosorbide Mononitrate 15 Mg Tab.Er.24h PO 15 mg BID@0900,1600 [facility] Administration Methylprednisolone Sodium Succinate 40 mg 07/02/24 13:40 07/04/24 05:25 Methylprednisolone Sod Succ 40 Mg Vial IV PUSH 40 mg Q8HR WARD Administration Metoprolol Succinate 25 mg 06/26/24 09:00 07/04/24 10:13 Metoprolol Succinate Ext Rel 25 Mg Tabcr PO 25 mg QAM [facility] Administration Ondansetron HCl 4 mg 06/25/24 23:05 Ondansetron Inj 4 Mg/2 Ml Vial IV PUSH Q6H PRN Nausea And Vomiting Pantoprazole Sodium 40 mg 06/26/24 09:00 07/04/24 10:13 Pantoprazole 40 Mg Tablet PO 40 mg QAM [facility] Administration Polyethylene Glycol 17 gm 07/04/24 09:00 07/04/24 10:12 Polyethylene Glycol 3350 17 Gm Powd.Pack PO 17 gm QAM WARD Administration Pregabalin 25 mg 06/26/24 21:00 07/03/24 20:26 Pregabalin (*Crx) 25 Mg Capsule PO Not Given [facility] Fluticasone/Salmeterol 2 puff 07/02/24 20:00 07/04/24 08:51 Fluticasone/Salmeterol 115-21 Mcg Inhaler 1 Puff INHALATION 2 puff Q12HRT WARD Administration Sodium Zirconium Cyclosilicate 10 gm 07/02/24 16:50 07/04/24 10:12 Sodium Zirconium Cyclosilicate 10 Gm Powd.Pack PO 10 gm TID@1000,1500,2200 WARD Administration Tamsulosin HCl 0.4 mg 06/25/24 23:10 07/03/24 20:16 Tamsulosin Hcl 0.4 Mg Capsule PO 0.4 mg QHS [facility] Administration Vitamin D 1,000 units 06/26/24 09:00 07/04/24 10:13 Cholecalciferol 1,000 Units Tablet PO 1,000 units DAILY WARD Administration Radiology Results: ITS Impressions Head CT 06/24/24 18:31 IMPRESSION: Hypodensity in the left posterior temporal/occipital area which is suggestive of acute/subacute infarct with multiple hyperdensities which may be hemorrhagic areas. Calcification is less likely. MRI evaluation is advised. Physician: Manav Duarte MD Was notified with the result of the patient at time 6:45 PM on June 24, 2024. Head/Neck CTA 06/24/24 19:43 IMPRESSION: 1. Nonvisualization of the distal left posterior cerebral artery. Otherwise normal CTA of the head. 2. CTA of the neck. Shows severe calcification of the carotid arteries. Percent stenosis per NASCET criteria is 60% on the right side. 3. Bilateral pleural effusion with adjacent atelectasis versus pneumonia. Venous Doppler Study 06/26/24 12:46 IMPRESSION: 1. No deep venous thrombosis. Pulmonary Perfusion Imaging 06/26/24 13:58 IMPRESSION: 1. No immediate probability for pulmonary embolism. ADDENDUM: 07/02/24 1044 CORRECTION: There is a dictation error in the impression section. With the correction capitalized this should read- 1. INTERMEDIATE probability for pulmonary embolism. This correction was discussed with Dior Ugarte, the nurse caring for the patient, at 10:40 AM. Chest X-Ray 07/03/24 11:30 Impression: Small bilateral pleural effusions with mild bibasilar pulmonary edema/atelectasis. Stable cardiomegaly, status post CABG and aortic valve replacement, with pacemaker device. Renal Ultrasound 07/03/24 20:41 IMPRESSION: No hydronephrosis or renal calculi. Findings suggesting medical renal disease. Labs Labs: Laboratory Results - last 24 hr 07/03/24 07/03/24 07/03/24 12:00 16:16 20:00 WBC RBC Hgb Hct MCV MCH MCHC RDW Plt Count MPV Immature Gran % (Auto) Neut % (Auto) Lymph % (Auto) [place] % (Auto) Eos % (Auto) Baso % (Auto) Lymph # (Auto) [place] # (Auto) Eos # (Auto) Baso # (Auto) Abs Immat Gran (auto) Absolute Neuts (auto) Absolute Nucleated RBC Nucleated RBC % Sodium Potassium Chloride Carbon Dioxide Anion Gap BUN Creatinine Estim Creat Clear Calc Estimated GFR Glucose POC Capillary Glucose 268 H 288 H Calcium Total Bilirubin AST ALT Alkaline Phosphatase Total Protein Albumin Protein/Creat Ratio 2 0.30 H Hep Bs Antigen Hep Bs Antibody 07/04/24 07/04/24 07/04/24 04:10 08:14 11:31 WBC 7.3 RBC 2.70 L Hgb 8.3 L Hct 27.1 L MCV 100.4 H MCH 30.7 MCHC 30.6 L RDW 15.9 H Plt Count 104 L MPV 10.0 Immature Gran % (Auto) 0.4 Neut % (Auto) 97.7 H Lymph % (Auto) 1.1 L [place] % (Auto) 0.8 L Eos % (Auto) 0.0 Baso % (Auto) 0.0 L Lymph # (Auto) 0.08 L [place] # (Auto) 0.1 Eos # (Auto) 0.0 Baso # (Auto) 0.0 Abs Immat Gran (auto) 0.03 Absolute Neuts (auto) 7.2 H Absolute Nucleated RBC 0.000 Nucleated RBC % 0.0 Sodium 130 L Potassium 5.9 H Chloride 88 L Carbon Dioxide 31 H Anion Gap 11 BUN 122 H Creatinine 2.76 H Estim Creat Clear Calc 21 Estimated GFR 22 L Glucose 313 H POC Capillary Glucose 346 H 359 H Calcium 7.9 L Total Bilirubin 0.5 AST 22 ALT 15 Alkaline Phosphatase 81 Total Protein 6.0 L Albumin 3.4 L Protein/Creat Ratio 2 Hep Bs Antigen Negative Hep Bs Antibody Negative Quality VTE Prophylaxis VTE prophylaxis: mechanical ordered
--- NOTE | 2024-07-04 12:51 | P.PNIM_ITS ---
Progress Note: A&P Assessment and Plan (1) Acute ischemic stroke: Code(s): I63.9 - Cerebral infarction, unspecified Status: Acute Assessment and Plan: * Head CT shown hypodensity in the left posterior temporal/occipital area suggestive of acute/subacute infarct with multiple hyperdensities which may be hemorrhagic areas * Head/neck CTA showed severe calcification of the carotid arteries 60% on the right side, bilateral pleural effusion with adjacent atelectasis versus pneumonia * Unable to do MRI brain due to pacemaker * Continue Aspirin, lipitor * PT/OT/ST * neurology following (2) Acute and chronic respiratory failure with hypercapnia: Code(s): J96.22 - Acute and chronic respiratory failure with hypercapnia Status: Acute Assessment and Plan: From COPD exacerbation abg 7.249/76.1/88.6/32.5 resolving continue Nighttime BiPAP contineu IV steroid adn bronchodilator and titrate oxygen (3) CHF (congestive heart failure): Code(s): I50.9 - Heart failure, unspecified Status: Chronic Assessment and Plan: * ProBNP greater than 30,000, patient has 4+ pitting edema to bilateral lower extremities * Troponin 0.078> 0.078> 0.070--likely demand ischemia * ECHO EF 40-45% * restarted Lasix per nephrology * Repeat CXR showed no significant change to small to moderate-sized bilateral pleural effusions (4) Elevated d-dimer: Code(s): R79.89 - Other specified abnormal findings of blood chemistry Status: Acute Assessment and Plan: * D-dimer 1.9 * Will get V/Q scan negative for PE * Venous Doppler LE, negative (5) DM2 (diabetes mellitus, type 2): Code(s): E11.9 - Type 2 diabetes mellitus without complications Status: Chronic Assessment and Plan: * Blood sugars ranging 175-230 * Hgb A1C 5.4 on 09/03/2020 * Will recheck hemoglobin A1c * Accu checks AC/HS * High-dose SSI ordered * hypoglycemic protocol in place * Diabetic diet and 2 g sodium diet ordered (6) COPD (chronic obstructive pulmonary disease): Code(s): J44.9 - Chronic obstructive pulmonary disease, unspecified Status: Chronic Assessment and Plan: in exacerbation continue IV steroid, bronchodilators monitor (7) Hypertension: Code(s): I10 - Essential (primary) hypertension Status: Chronic Assessment and Plan: * Blood pressure ranging 102/54 to 118/72 * Continue isosorbide (8) CAD (coronary artery disease): Code(s): I25.10 - Atherosclerotic heart disease of [place] coronary artery without angina pectoris Status: Chronic Assessment and Plan: * Status post CABG x5 vessel * Continue atorvastatin (9) Pacemaker: Code(s): Z95.0 - Presence of cardiac pacemaker Status: Acute Assessment and Plan: * Ventricular pacemaker in place * EKG showed electronic ventricular pacemaker with a rate of 65, QTC 517 (10) BPH (benign prostatic hyperplasia): Code(s): N40.0 - Benign prostatic hyperplasia without lower urinary tract symptoms Status: Chronic Assessment and Plan: * Continue finasteride and tamsulosin (11) Chronic anemia: Code(s): D64.9 - Anemia, unspecified Status: Chronic Assessment and Plan: * Hemoglobin 9.4-->8.4 * Appears to be chronic * Continue ferrous sulfate * isat 15 and Ferritin 43. * IV Iron 400/1000mg (12) Sleep apnea: Code(s): G47.30 - Sleep apnea, unspecified Status: Chronic Assessment and Plan: * Patient currently requiring BiPAP due to hypercapnia Plan CHRISTIAN on CKD , worsening 1.8-2.3. Nephrology eval noted that patient may have to have to adjust to higher Creatinien thus recommended restarting Lasix, Lasix restarted 40mg bid IV Cr 2.51-->2.76 baseline is about 1.6 Lasix on hold, given worsening fluid overload, patient may need dialysis Nephrology consulted Hyperkalemia K 5.8 Started [facility] Nephrology following iron deficiency anemia Hb 8.2, isat 15 Give 400mg IV iron continue PO Iron monitor DVT prophylaxis on SCDs, hx of hemorrhagic CVA Subjective Date/time seen: 07/04/24 12:51 Interval history: comfortable at bedside Nephrology eval noted Review of Systems Review of Systems: All systems reviewed & are unremarkable except as noted in HPI and below Exam Narrative: General: In no acute distress, well nourished Head: atraumatic, no encephalopathy Eyes: PERRLA, sclera clear ENT: moist mucous membranes, nasal passages clear Neck: supple, no JVD, no adenopathy, trachea midline Cardiac: Normal S1 and S2. No murmur, gallops or friction rubs, peripheral pulses intact. Respiratory:Inspiratory and expiratory wheezing, no other adventitious lung sounds, currently on nasal cannula with use of accessory muscles and acute respiratory distress. Gastrointestinal: soft, non-distended, non-tender, normoactive bowel sounds. : voiding without difficulty. Extremities:BUE with good hand automatic outsole cutter 4/5 bilaterally, 4+ pitting edema to bilateral lower extremities Skin: clean, dry, intact. No wounds or lesions. Neuro: Alert and oriented x4, cranial nerves intact, LUE weakness Psych: normal mood, normal affect, interactive Objective Data Vital Signs Vital Signs: Vital Signs - 24 hr 07/03/24 14:00 07/03/24 15:45 07/03/24 15:55 Temperature Pulse Rate 74 60 62 Respiratory Rate 20 20 Blood Pressure Pulse Oximetry Oxygen Delivery Oxygen Flow Rate Fraction of Inspired Oxygen 07/03/24 16:00 07/03/24 16:00 07/03/24 16:00 Temperature 97.6 F Pulse Rate 93 60 Respiratory Rate 28 H Blood Pressure 101/52 L Pulse Oximetry 95 98 Oxygen Delivery Nasal Cannula Oxygen Flow Rate 2 Fraction of Inspired Oxygen 07/03/24 18:00 07/03/24 19:07 07/03/24 19:55 Temperature 97.5 F L Pulse Rate 60 60 90 Respiratory Rate 19 22 H Blood Pressure 92/60 L Pulse Oximetry 99 97 Oxygen Delivery BiPAP Oxygen Flow Rate Fraction of Inspired Oxygen 07/03/24 19:55 07/03/24 19:55 07/03/24 20:00 Temperature Pulse Rate 90 Respiratory Rate 22 H Blood Pressure Pulse Oximetry 97 99 Oxygen Delivery BiPAP BiPAP Oxygen Flow Rate Fraction of Inspired Oxygen 07/03/24 20:00 07/03/24 20:10 07/03/24 22:00 Temperature Pulse Rate 60 61 60 Respiratory Rate 22 H Blood Pressure Pulse Oximetry Oxygen Delivery Oxygen Flow Rate Fraction of Inspired Oxygen 07/03/24 23:05 07/03/24 23:05 07/03/24 23:19 Temperature Pulse Rate 60 60 61 Respiratory Rate 20 20 22 H Blood Pressure Pulse Oximetry 99 Oxygen Delivery BiPAP Oxygen Flow Rate Fraction of Inspired Oxygen 07/03/24 23:57 07/04/24 00:00 07/04/24 00:00 Temperature 98.3 F Pulse Rate 82 60 Respiratory Rate 24 H Blood Pressure 97/40 L Pulse Oximetry 98 97 Oxygen Delivery BiPAP Oxygen Flow Rate Fraction of Inspired Oxygen 07/04/24 02:00 07/04/24 03:00 07/04/24 03:00 Temperature Pulse Rate 60 70 70 Respiratory Rate 22 H 22 H Blood Pressure Pulse Oximetry 96 Oxygen Delivery BiPAP Oxygen Flow Rate Fraction of Inspired Oxygen 07/04/24 03:06 07/04/24 03:43 07/04/24 04:00 Temperature 97.9 F Pulse Rate 60 96 Respiratory Rate 20 20 Blood Pressure 114/35 L Pulse Oximetry 96 98 Oxygen Delivery BiPAP Oxygen Flow Rate Fraction of Inspired Oxygen 25 07/04/24 04:00 07/04/24 05:53 07/04/24 08:00 Temperature 97.8 F Pulse Rate 66 65 65 Respiratory Rate 23 H Blood Pressure 115/47 L Pulse Oximetry 99 Oxygen Delivery Oxygen Flow Rate Fraction of Inspired Oxygen 07/04/24 08:00 07/04/24 08:00 07/04/24 08:55 Temperature Pulse Rate 65 62 76 Respiratory Rate 20 30 H Blood Pressure Pulse Oximetry 98 96 Oxygen Delivery BiPAP BiPAP Oxygen Flow Rate 2 Fraction of Inspired Oxygen 07/04/24 08:55 07/04/24 08:55 07/04/24 10:00 Temperature Pulse Rate 76 67 Respiratory Rate 30 H Blood Pressure Pulse Oximetry 97 Oxygen Delivery Nasal Cannula Oxygen Flow Rate 2 Fraction of Inspired Oxygen 07/04/24 10:13 07/04/24 11:58 07/04/24 11:58 Temperature Pulse Rate 74 77 77 Respiratory Rate 27 H 27 H Blood Pressure Pulse Oximetry 96 Oxygen Delivery BiPAP Oxygen Flow Rate Fraction of Inspired Oxygen 07/04/24 12:00 07/04/24 12:00 07/04/24 12:00 Temperature 98.4 F Pulse Rate 58 L 61 58 L Respiratory Rate 23 H 22 H Blood Pressure 114/45 L Pulse Oximetry 97 97 Oxygen Delivery BiPAP Oxygen Flow Rate Fraction of Inspired Oxygen 07/04/24 12:34 Temperature Pulse Rate 68 Respiratory Rate Blood Pressure Pulse Oximetry Oxygen Delivery Oxygen Flow Rate Fraction of Inspired Oxygen Intake/Output Intake/Output: Intake & Output 07/01/24 07/02/24 07/03/24 07/04/24 23:59 23:59 23:59 23:59 Intake Total 990 700 480 980 Output Total 550 650 650 350 Balance 440 50 -170 630 Meds/Results Medications: Active Medications Generic Name Dose Route Start Last Admin Trade Name Freq PRN Reason Stop Dose Admin Acetaminophen 650 mg 06/25/24 23:05 07/03/24 17:50 Acetaminophen 325 Mg Tablet PO 650 mg Q4H PRN Administration Mild Pain (1-3) or Fever Albuterol/Ipratropium 3 ml 07/02/24 13:50 07/04/24 11:56 Ipratropium 0.5 Mg/Albuterol Sulfate 2.5 Mg Ampul.Neb 3 Ml INHALATION 3 ml Q4HRT WARD Administration Aspirin 81 mg 07/01/24 09:00 07/04/24 10:12 Aspirin 81 Mg Enteric Tablet PO 81 mg QAM WARD Administration Atorvastatin Calcium 40 mg 06/25/24 23:10 07/03/24 20:16 Atorvastatin 40 Mg Tablet PO 40 mg HS WARD Administration Cyanocobalamin 1,000 mcg 06/26/24 09:00 07/04/24 10:13 Cyanocobalamin 1,000 Mcg Tablet PO 1,000 mcg DAILY WARD Administration Dextrose 12.5 gm 06/26/24 04:23 Dextrose 50% 25 Gm/50 Ml Syringe IV PUSH PRN PRN Hypoglycemia Protocol Epoetin Edwin-epbx 10,000 units 07/04/24 09:00 07/04/24 10:41 Epoetin Edwin-Epbx 10,000 Units/Ml Vial SUB-Q 10,000 units TUTHSA@09 WARD Administration Ferrous Sulfate 325 mg 06/26/24 09:00 07/04/24 10:13 Ferrous Sulfate [address] PO 325 mg BID WARD Administration Finasteride 5 mg 06/26/24 09:00 07/04/24 10:12 Finasteride 5 Mg Tablet PO 5 mg DAILY WARD Administration Folic Acid 1 mg 06/26/24 09:00 07/04/24 10:12 Folic Acid 1 Mg Tablet PO 1 mg DAILY WARD Administration Furosemide 40 mg 06/26/24 09:00 06/27/24 13:07 Furosemide Inj 40 Mg/4 Ml Vial IV PUSH Not Given BID WARD Glucagon 1 mg 06/26/24 04:23 Glucagon For Inj 1 Mg Vial IM PRN PRN Hypoglycemia Protocol Glucose 15 gm 06/26/24 04:23 Glucose Oral Gel 15 Gm Of Glucse In 37.5 Gm Tube PO PRN PRN Hypoglycemia Protocol Dextrose 1,000 mls @ 100 mls/hr 06/26/24 04:23 Dextrose 5% 1,000 Ml IVPB PRN PRN Hypoglycemia Protocol Insulin Aspart 4 - 8 units 06/26/24 08:00 07/04/24 12:05 Insulin Aspart (*Bkc) 100 Units/Ml SUB-Q 8 units TIDWM WARD Administration Protocol Insulin Aspart 2 - 4 units 06/26/24 21:00 07/03/24 20:15 Insulin Aspart (*Bkc) 100 Units/Ml SUB-Q 2 units HS WARD Administration Protocol Insulin Glargine 8 units 06/28/24 21:00 07/03/24 20:15 Insulin Glargine (*Bkc) 100 Units/Ml SUB-Q 8 units HS WARD Administration Isosorbide Mononitrate 15 mg 07/03/24 09:00 07/04/24 10:12 Isosorbide Mononitrate 15 Mg Tab.Er.24h PO 15 mg BID@0900,1600 WARD Administration Methylprednisolone Sodium Succinate 40 mg 07/02/24 13:40 07/04/24 05:25 Methylprednisolone Sod Succ 40 Mg Vial IV PUSH 40 mg Q8HR WARD Administration Metoprolol Succinate 25 mg 06/26/24 09:00 07/04/24 10:13 Metoprolol Succinate Ext Rel 25 Mg Tabcr PO 25 mg QAM WARD Administration Ondansetron HCl 4 mg 06/25/24 23:05 Ondansetron Inj 4 Mg/2 Ml Vial IV PUSH Q6H PRN Nausea And Vomiting Pantoprazole Sodium 40 mg 06/26/24 09:00 07/04/24 10:13 Pantoprazole 40 Mg Tablet PO 40 mg QAM WARD Administration Polyethylene Glycol 17 gm 07/04/24 09:00 07/04/24 10:12 Polyethylene Glycol 3350 17 Gm Powd.Pack PO 17 gm QAM WARD Administration Pregabalin 25 mg 06/26/24 21:00 07/03/24 20:26 Pregabalin (*Crx) 25 Mg Capsule PO Not Given HS WARD Fluticasone/Salmeterol 2 puff 07/02/24 20:00 07/04/24 08:51 Fluticasone/Salmeterol 115-21 Mcg Inhaler 1 Puff INHALATION 2 puff Q12HRT WARD Administration Sodium Zirconium Cyclosilicate 10 gm 07/02/24 16:50 07/04/24 10:12 Sodium Zirconium Cyclosilicate 10 Gm Powd.Pack PO 10 gm TID@1000,1500,2200 WARD Administration Tamsulosin HCl 0.4 mg 06/25/24 23:10 07/03/24 20:16 Tamsulosin Hcl 0.4 Mg Capsule PO 0.4 mg QHS WARD Administration Vitamin D 1,000 units 06/26/24 09:00 07/04/24 10:13 Cholecalciferol 1,000 Units Tablet PO 1,000 units DAILY WARD Administration Radiology Results: ITS Impressions Head CT 06/24/24 18:31 IMPRESSION: Hypodensity in the left posterior temporal/occipital area which is suggestive of acute/subacute infarct with multiple hyperdensities which may be hemorrhagic areas. Calcification is less likely. MRI evaluation is advised. Physician: Manav Duarte MD Was notified with the result of the patient at time 6:45 PM on June 24, 2024. Head/Neck CTA 06/24/24 19:43 IMPRESSION: 1. Nonvisualization of the distal left posterior cerebral artery. Otherwise n ormal CTA of the head. 2. CTA of the neck. Shows severe calcification of the carotid arteries. Percent stenosis per NASCET criteria is 60% on the right side. 3. Bilateral pleural effusion with adjacent atelectasis versus pneumonia. Venous Doppler Study 06/26/24 12:46 IMPRESSION: 1. No deep venous thrombosis. Pulmonary Perfusion Imaging 06/26/24 13:58 IMPRESSION: 1. No immediate probability for pulmonary embolism. ADDENDUM: 07/02/24 1044 CORRECTION: There is a dictation error in the impression section. With the correction capitalized this should read- 1. INTERMEDIATE probability for pulmonary embolism. This correction was discussed with Dior Ugarte, the nurse caring for the patient, at 10:40 AM. Chest X-Ray 07/03/24 11:30 Impression: Small bilateral pleural effusions with mild bibasilar pulmonary edema/atelectasis. Stable cardiomegaly, status post CABG and aortic valve replacement, with pacemaker device. Renal Ultrasound 07/03/24 20:41 IMPRESSION: No hydronephrosis or renal calculi. Findings suggesting medical renal disease. Labs Labs: Laboratory Results - last 24 hr 07/03/24 07/03/24 07/04/24 16:16 20:00 04:10 WBC 7.3 RBC 2.70 L Hgb 8.3 L Hct 27.1 L MCV 100.4 H MCH 30.7 MCHC 30.6 L RDW 15.9 H Plt Count 104 L MPV 10.0 Immature Gran % (Auto) 0.4 Neut % (Auto) 97.7 H Lymph % (Auto) 1.1 L [place] % (Auto) 0.8 L Eos % (Auto) 0.0 Baso % (Auto) 0.0 L Lymph # (Auto) 0.08 L [place] # (Auto) 0.1 Eos # (Auto) 0.0 Baso # (Auto) 0.0 Abs Immat Gran (auto) 0.03 Absolute Neuts (auto) 7.2 H Absolute Nucleated RBC 0.000 Nucleated RBC % 0.0 Sodium 130 L Potassium 5.9 H Chloride 88 L Carbon Dioxide 31 H Anion Gap 11 BUN 122 H Creatinine 2.76 H Estim Creat Clear Calc 21 Estimated GFR 22 L Glucose 313 H POC Capillary Glucose 268 H 288 H Calcium 7.9 L Total Bilirubin 0.5 AST 22 ALT 15 Alkaline Phosphatase 81 Total Protein 6.0 L Albumin 3.4 L Hep Bs Antigen Negative Hep Bs Antibody Negative 07/04/24 07/04/24 08:14 11:31 WBC RBC Hgb Hct MCV MCH MCHC RDW Plt Count MPV Immature Gran % (Auto) Neut % (Auto) Lymph % (Auto) [place] % (Auto) Eos % (Auto) Baso % (Auto) Lymph # (Auto) [place] # (Auto) Eos # (Auto) Baso # (Auto) Abs Immat Gran (auto) Absolute Neuts (auto) Absolute Nucleated RBC Nucleated RBC % Sodium Potassium Chloride Carbon Dioxide Anion Gap BUN Creatinine Estim Creat Clear Calc Estimated GFR Glucose POC Capillary Glucose 346 H 359 H Calcium Total Bilirubin AST ALT Alkaline Phosphatase Total Protein Albumin Hep Bs Antigen Hep Bs Antibody Quality VTE Prophylaxis VTE prophylaxis: mechanical ordered
--- NOTE | 2024-07-04 13:52 | PCPTNOTE ---
Pt refused PT- stating that he's feeling too short of breath (pt was on bipap at this time)
[2024-07-04 14:00] LABS: Alveolar/Arterial O2 Gradient 33.3 mmHg; Base Excess ABG 1.5 mEq/l (+/-2.0); Fractional Inspired Oxygen 25 %; HCO3 ABG 27.5 mEq/l (22.0-26.0); Oxygen Content ABG 11.6 %vol (16.0-22.0); Oxygen Saturation ABG 95.8 % (95.0-100.0); Oxyhemoglobin 94.9 % THb (90.0-100.0); PCO2 ABG 50.9 mmHg (35.0-45.0); PO2 ABG 84.5 mmHg (80.0-100.0); PO2 FiO2 Ratio Arterial Blood 3.38 %; Total Hemoglobin 8.6 g/dL (12.0-18.0)
[2024-07-04 14:01] LABS: Device NON-INVASIVE VENT; Modified Allen's Test Pass; Site Drawn RIGHT RADIAL
[2024-07-04 14:02] LABS: Non-Invasive Expiratory Pressure 6 CMH2O; Non-Invasive Inspiratory Pressure 12 CMH2O; Non-Invasive Vent Rate 16 /MIN
--- NOTE | 2024-07-04 16:19 | P.CONPL_ITS ---
Assessment and Plan Assessment and plan (1) Acute and chronic respiratory failure with hypercapnia: Code(s): J96.22 - Acute and chronic respiratory failure with hypercapnia Status: Acute Assessment and Plan: He is better compensated now compared to admission; Last ABG showed compensated pH, lowest pCO2 in the system, adequate pO2. 7.35/51/85 on BiPAP 12/6, 25% and rate 16. He has the intersection of and stage systolic CHF leading to worsening renal perfusion, worsening acute on chronic kidney failure; lungs are not normal at baseline, has used O2 for years, now with inability to compensate. This will only get worse. (2) COPD (chronic obstructive pulmonary disease): Code(s): J44.9 - Chronic obstructive pulmonary disease, unspecified Status: Chronic Assessment and Plan: Has dx of COPD, has been on O2 7-8 years, uses nebulizer at home with albuterol, and his controller inhaler he says is Breztri. Smoked 2 ppd x 20 years, quit decades ago. Plan plan: 1) Stop steroids; he is not having a COPD exacerbation. He is having progressive multiorgan deterioration due to systolic heart failure and worsening acute on chronic renal failure, driving up pCO2. 2) change BiPap to AVAPS; his ABGs improved on BiPAP, much better and not a bad choice. I am trying to give him something more comfortable, a lower rate, higher TV, improve what I can while he makes decision for hospice. 3) Airway clearance; he has little sputum. Will add Cornet valve to help with any secretions he has. He does not have pneumonia; has a chronic cough with daily clear sputum. 4) By not making a firm decision about dialysis, he is making a choice to by progressive multiorgan dysfunction. I spoke with him and his with their friends present. They asked questions about hemodialysis as if they might consider it, but then let me know how much family members had suffered, dasia their daughter who at 34 with scleroderma. He might be more comfortable and have better quality of life with hospice, be more comfortable with hospice care instead of intense care in IMU. > 80 minutes spent reviewing chart, talking with patient nad family, documenting, talking with staff. I saw patient at 18:15, completed charting at 21:35, other activities in the interim. History of Present Illness History of Present Illness Consult date: 07/04/24 Requesting physician: Elzbieta Jamison MD Chief complaint: Shortness of breath Narrative: Patient was seen at 18:15 on July 04, 2024 Room 207 IMU Darcie is at the bedside, and there is a couple also visiting him. NEW: Jessica Wallace is an 84-year-old man with CHF, CAD s/p CABG, stent, ppm with probable ICD, COPD, O2 use for 7-8 years, chronic kidney disease, DM type 2, anemia, AFUA, Agent [place] exposure, 100% disability. He has diagnosis of AFUA, had a CPAP for a few years, did not want to use it until the last few months when his breathing worsened, started regular use 3 months ago. Has a hard time keeping it on at night, sleeps more than he is awake, worsening exercise tolerance, increased leg swelling. [facility] of breath, sounds like CHF + acute and chronic respiratory failure, and acute and chronic kidney disease. [facility] at the end of that admission. He was admitted here at [facility] June 09 admission with hypercapnic respiratory failure, decompensated systolic CHF, acute and chronic renal failure; he was having shortness of breath and LE swelling for several months. He went to a alf facility, became less responsive, returned on June 24 with altered mentation, had a UTI and an acute ischemic stroke; head CT showed left posterior temporal occipital ischemia with areas of hemorrhage. He had elevated pCO2 both admissions; this admission June 24 as placed on BiPAP in the ED, I/E = 12/6 with rate 20, 1 L/min O2. He had been on BiPAP most of this admission, improved pCO2. He has worsening acute on chronic renal failure, initial BUN was 102, creat was 2.19, with worsening failure, BUN 122, creat 2.76. He has systolic CHF, diabetes is out of control with glucose running in the 300s aggravated by solumedrol IV push Q 6 hours. He is receiving this for COPD. Nephrology has talked with him about dialysis, which he does not want because he watched his 34 year-old daughter have HD for a month before dying of scleroderma. His sister also had dialysis, he does not want that path. He has been on CPAP a few years, did not wear his device regularly until 3 months ago when he started having worsening CHF. His machine was adjusted after this Fe admission at the CT. He coughs daily, minimal sputum which is clear, uses albuterol at home and an inhaler, thinks that it is Breztri. DATA * 07/03/24 CXR; Impression: Small bilateral pleural effusions with mild bibasilar pulmonary edema/atelectasis. Stable cardiomegaly, status post CABG and aortic valve replacement, with pacemaker device. * ABGs ; he had acute hypercapnia during last admission June 09; his serum bicarbonate is low. He now has acute and chronic hypercapnia, serum bicarbonate is 27 to 32. Review of Systems 2 Review of Systems: All systems reviewed & are unremarkable except as noted in HPI and below PMFSH Past Medical History Medical History DM2 (diabetes mellitus, type 2) BPH (benign prostatic hyperplasia) Blindness of right eye Unknown cause Tobacco abuse 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 Chronic anemia Chronic renal failure, stage 3 (moderate) Chronic respiratory failure with hypoxia He wears oxygen at 2 L per nasal cannula Hypertension Sleep apnea The patient no longer uses and CPAP machine CAD (coronary artery disease) Pacemaker CHF (congestive heart failure) COPD (chronic obstructive pulmonary disease) Surgical History Surgical History H/O cystoscopy With bladder biopsy S/P CABG x 5 S/P heart valve repair Stented coronary artery X1 Family History Family History Daughter Scleroderma Social History Social History Social History: The patient lives with his who is the durable power banking attorney for healthcare. The patient desires to be a full code but does not want to be in a vegetative state on a ventilator. Patient is retired from working for the [employer]. He had a son and a daughter but his daughter with the scleroderma. Patient does not use any alcohol, marijuana, or illicit drugs. The patient stated that he quit smoking 40 years ago. 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 Smoking packs per day: 2 Smoking cigarettes per day: 40.0 Years smoked: 22 Smoking pack-years: 44.00 Smoking status: Former smoker Second hand tobacco smoke exposure: No Alcohol intake: never Substance use: never Do You Feel Safe in your Home?: Yes Lack of Transportation: No Lack of Food: Never True Current Housing: I Have Housing Concerned About Future Housing: No Difficulty Paying Gas/Electric Bills: No Difficulty Paying for Meds: No Currently Unemployed: No Education: High School Diploma/GED Difficulty w/ Childcare or Family Care: No Gender identity (if verbalized by the patient): Male Spiritual care concerns: No Meds Home Medications and Allergies Home Medications ?Medication ?Instructions ?Recorded ?Confirmed ?Type albuterol sulfate 90 mcg/actuation 2 puff inhalation QID PRN 09/03/20 06/25/24 History aerosol inhaler Shortness Of Breath Or Wheezing aspirin 81 mg chewable tablet 81 mg PO DAILY 09/03/20 06/25/24 History atorvastatin 40 mg tablet 40 mg PO HS 09/03/20 06/25/24 History cholecalciferol (vitamin D3) 25 25 mcg PO DAILY 09/03/20 06/25/24 History mcg (1,000 unit) tablet cyanocobalamin (vitamin B-12) 1,000 mcg PO DAILY 09/03/20 06/25/24 History 1,000 mcg tablet ferrous sulfate 325 mg (65 mg 325 mg PO BID 09/03/20 06/25/24 History iron) tablet isosorbide mononitrate 10 mg tablet 15 mg PO BID 09/03/20 06/25/24 History magnesium oxide 400 mg PO DAILY 09/03/20 06/25/24 History pantoprazole 40 mg tablet,delayed 40 mg PO QAM 09/03/20 06/25/24 History release (Protonix) tamsulosin 0.4 mg capsule (Flomax) 0.4 mg PO .pm 09/03/20 06/25/24 History tiotropium bromide 2.5 2 puff inhalation DAILY 09/03/20 06/25/24 History mcg/actuation mist for inhalation bumetanide 1 mg tablet 1 mg PO BID #60 tabs 09/08/20 06/25/24 Rx metolazone 2.5 mg tablet 2.5 mg PO WEEKLY #30 tabs 09/08/20 06/25/24 Rx nitroglycerin 0.4 mg sublingual 0.4 mg sublingual Q5MIN PRN Chest 09/08/20 06/25/24 Rx tablet (Nitrostat) Pain #25 tabs atropine sulfate (PF) 1 % eye 1 drp RIGHT EYE .Q12HR 06/10/24 06/25/24 History drops in a dropperette budesonide 160 mcg-glycopyr 9 2 inh inhalation .Q12HR 06/10/24 06/25/24 History mcg-formot 4.8 mcg/actuation HFA inhaler (Breztri Aerosphere) calcitriol 0.25 mcg capsule 0.25 mcg PO 3XW 06/10/24 06/25/24 History diclofenac sodium 1 % topical gel 2 g topical QID PRN pain 06/10/24 06/25/24 History finasteride 5 mg tablet 5 mg PO DAILY 06/10/24 06/25/24 History folic acid 1 mg tablet 1 mg PO DAILY 06/10/24 06/25/24 History guaifenesin 400 mg tablet 400 mg PO Q4H PRN cough 06/10/24 06/25/24 History (G-Fenesin) metoprolol succinate 25 mg 25 mg PO QAM 06/10/24 06/25/24 History tablet,extended release 24 hr (Toprol XL) prednisolone acetate (PF) 1 % eye 1 drp RIGHT EYE Q12H 06/10/24 06/25/24 History drops,suspension pregabalin 25 mg capsule 25 mg PO HS 06/10/24 06/25/24 History sitagliptin 25 mg tablet 25 mg PO DAILY 06/10/24 06/25/24 History acetaminophen 325 mg tablet 650 mg PO Q4-6H PRN pain 06/25/24 06/25/24 History furosemide 40 mg tablet 40 mg PO DAILY 06/25/24 06/25/24 History Allergies Allergy/AdvReac Type Severity Reaction Status Date / Time latex Allergy Unknown Rash Verified 06/25/24 06:09 lisinopril Allergy Unknown Unknown Verified 06/25/24 06:09 Vital Signs Vital Signs - 24 hr 07/03/24 18:00 07/03/24 19:07 07/03/24 19:55 Temperature 36.4 C L Pulse Rate 60 60 90 Respiratory Rate 19 22 H Blood Pressure 92/60 L Pulse Oximetry 99 97 Oxygen Delivery BiPAP Oxygen Flow Rate Fraction of Inspired Oxygen 07/03/24 19:55 07/03/24 19:55 07/03/24 20:00 Temperature Pulse Rate 90 Respiratory Rate 22 H Blood Pressure Pulse Oximetry 97 99 Oxygen Delivery BiPAP BiPAP Oxygen Flow Rate Fraction of Inspired Oxygen 07/03/24 20:00 07/03/24 20:10 07/03/24 22:00 Temperature Pulse Rate 60 61 60 Respiratory Rate 22 H Blood Pressure Pulse Oximetry Oxygen Delivery Oxygen Flow Rate Fraction of Inspired Oxygen 07/03/24 23:05 07/03/24 23:05 07/03/24 23:19 Temperature Pulse Rate 60 60 61 Respiratory Rate 20 20 22 H Blood Pressure Pulse Oximetry 99 Oxygen Delivery BiPAP Oxygen Flow Rate Fraction of Inspired Oxygen 07/03/24 23:57 07/04/24 00:00 07/04/24 00:00 Temperature 36.8 C Pulse Rate 82 60 Respiratory Rate 24 H Blood Pressure 97/40 L Pulse Oximetry 98 97 Oxygen Delivery BiPAP Oxygen Flow Rate Fraction of Inspired Oxygen 07/04/24 02:00 07/04/24 03:00 07/04/24 03:00 Temperature Pulse Rate 60 70 70 Respiratory Rate 22 H 22 H Blood Pressure Pulse Oximetry 96 Oxygen Delivery BiPAP Oxygen Flow Rate Fraction of Inspired Oxygen 07/04/24 03:06 07/04/24 03:43 07/04/24 04:00 Temperature 36.6 C Pulse Rate 60 96 Respiratory Rate 20 20 Blood Pressure 114/35 L Pulse Oximetry 96 98 Oxygen Delivery BiPAP Oxygen Flow Rate Fraction of Inspired Oxygen 07/04/24 04:00 07/04/24 05:53 07/04/24 08:00 Temperature 36.6 C Pulse Rate 66 65 65 Respiratory Rate 23 H Blood Pressure 115/47 L Pulse Oximetry 99 Oxygen Delivery Oxygen Flow Rate Fraction of Inspired Oxygen 07/04/24 08:00 07/04/24 08:00 07/04/24 08:55 Temperature Pulse Rate 65 62 76 Respiratory Rate 20 30 H Blood Pressure Pulse Oximetry 98 96 Oxygen Delivery BiPAP BiPAP Oxygen Flow Rate 2 Fraction of Inspired Oxygen 07/04/24 08:55 07/04/24 08:55 07/04/24 10:00 Temperature Pulse Rate 76 67 Respiratory Rate 30 H Blood Pressure Pulse Oximetry 97 Oxygen Delivery Nasal Cannula Oxygen Flow Rate 2 Fraction of Inspired Oxygen 07/04/24 10:13 07/04/24 11:58 07/04/24 11:58 Temperature Pulse Rate 74 77 77 Respiratory Rate 27 H 27 H Blood Pressure Pulse Oximetry 96 Oxygen Delivery BiPAP Oxygen Flow Rate Fraction of Inspired Oxygen 07/04/24 12:00 07/04/24 12:00 07/04/24 12:00 Temperature 36.9 C Pulse Rate 58 L 61 58 L Respiratory Rate 23 H 22 H Blood Pressure 114/45 L Pulse Oximetry 97 97 Oxygen Delivery BiPAP Oxygen Flow Rate Fraction of Inspired Oxygen 07/04/24 12:34 07/04/24 14:00 07/04/24 14:55 Temperature Pulse Rate 68 60 61 Respiratory Rate 22 H Blood Pressure Pulse Oximetry 98 Oxygen Delivery BiPAP Oxygen Flow Rate Fraction of Inspired Oxygen 07/04/24 14:57 07/04/24 15:03 07/04/24 16:00 Temperature Pulse Rate 61 62 Respiratory Rate 22 H 22 H Blood Pressure Pulse Oximetry 99 Oxygen Delivery BiPAP Oxygen Flow Rate Fraction of Inspired Oxygen Exam 2 Narrative: GEN: Alert, oriented, chronically ill man lying in bed with head elevated up; he has faint wheezes audible from upper airway. he is wearing a full face mask and using BiPAP set at 12/6, TV running 370-450, HEENT: Left pupil responds to light, right eye opacified, blindness; symmetrical face; oral membranes dry, Mallampati II airway. NECK: Trachea is midline. No palpable lymphadenopathy. CHEST: Decreased breath sounds in right lung base; he is leaning towards right side; faint expiratory wheezes throughout remainder of the lungs. Prolonged expiration. CV: Regular S1S2 no m/g/r ABD : (+) bowel sounds, distended abdomen Extremities : no clubbing; his hands are warm, he has no cyanosis; scattered ecchymoses over dorsum of hands; 4+ edema both legs and hands. PSYCH: normal thought and speech Results Laboratory Findings 07/04/24 04:10 07/04/24 04:10 ABG, PT/INR, D-dimer: ABG ABG pH 7.350 (7.350-7.450) 07/04/24 14:00 ABG pCO2 50.9 mmHg (35.0-45.0) H 07/04/24 14:00 ABG pO2 84.5 mmHg (80.0-100.0) 07/04/24 14:00 ABG O2 Saturation 95.8 % (95.0-100.0) 07/04/24 14:00 PT/INR, D-dimer PT 15.7 Seconds (11.1-14.7) H 06/24/24 17:04 INR 1.2 06/24/24 17:04 D-Dimer 1.79 ug/mL (<0.48) H 06/25/24 23:33 Abnormal lab findings: Abnormal Labs 06/24/24 06/24/24 06/24/24 17:04 17:13 17:20 WBC RBC 3.12 L Hgb 9.5 L Hct 31.1 L MCV MCHC 30.5 L RDW 14.9 H Plt Count 131 L MPV Immature Gran % (Auto) Neut % (Auto) Lymph % (Auto) [place] % (Auto) Baso % (Auto) Lymph # (Auto) Abs Immat Gran (auto) Absolute Neuts (auto) Neutrophils % (Manual) 87 H Lymphocytes % (Manual) 9.0 L Monocytes % (Manual) Abs Lymphs (Manual) 0.45 L Abs Monocytes (Manual) PT 15.7 H D-Dimer ABG pH ABG pCO2 ABG HCO3 ABG O2 Saturation ABG O2 Content VBG pH 7.276 L VBG pCO2 71.4 H* VBG pO2 29.2 L VBG HCO3 32.5 H Total Hemoglobin Sodium 129 L Potassium Chloride 87 L Carbon Dioxide 36 H Anion Gap BUN 104 H D Creatinine 2.49 H Estimated GFR 25 L Glucose 306 H POC Capillary Glucose 311 H Hemoglobin A1c Calcium Magnesium Iron TIBC % Saturation AST Total Creatine Kinase Troponin I 0.078 H* NT-Pro-B Natriuret Pep Total Protein Albumin Urine Appearance Cloudy H Urine Glucose (UA) 1+ H Leukocyte Esterase Rfl Trace H Urine WBC 6-10 H Protein/Creat Ratio 2 Stl Occult Blood (IFOB) Salicylates < 1.0 L Acetaminophen < 10 L 06/24/24 06/24/24 06/25/24 22:02 23:58 13:37 WBC RBC Hgb Hct MCV MCHC RDW Plt Count MPV Immature Gran % (Auto) Neut % (Auto) Lymph % (Auto) [place] % (Auto) Baso % (Auto) Lymph # (Auto) Abs Immat Gran (auto) Absolute Neuts (auto) Neutrophils % (Manual) Lymphocytes % (Manual) Monocytes % (Manual) Abs Lymphs (Manual) Abs Monocytes (Manual) PT D-Dimer ABG pH ABG pCO2 ABG HCO3 ABG O2 Saturation ABG O2 Content VBG pH VBG pCO2 VBG pO2 VBG HCO3 Total Hemoglobin Sodium Potassium Chloride Carbon Dioxide Anion Gap BUN Creatinine Estimated GFR Glucose POC Capillary Glucose 230 H 215 H Hemoglobin A1c Calcium Magnesium Iron TIBC % Saturation AST Total Creatine Kinase Troponin I 0.078 H* NT-Pro-B Natriuret Pep Total Protein Albumin Urine Appearance Urine Glucose (UA) Leukocyte Esterase Rfl Urine WBC Protein/Creat Ratio 2 Stl Occult Blood (IFOB) Salicylates Acetaminophen 06/25/24 06/25/24 06/25/24 21:51 23:27 23:29 WBC RBC Hgb Hct MCV MCHC RDW Plt Count MPV Immature Gran % (Auto) Neut % (Auto) Lymph % (Auto) [place] % (Auto) Baso % (Auto) Lymph # (Auto) Abs Immat Gran (auto) Absolute Neuts (auto) Neutrophils % (Manual) Lymphocytes % (Manual) Monocytes % (Manual) Abs Lymphs (Manual) Abs Monocytes (Manual) PT D-Dimer ABG pH 7.313 L ABG pCO2 61.6 H* ABG HCO3 30.5 H ABG O2 Saturation ABG O2 Content 14.6 L VBG pH VBG pCO2 VBG pO2 VBG HCO3 Total Hemoglobin 10.7 L Sodium Potassium Chloride Carbon Dioxide Anion Gap BUN Creatinine Estimated GFR Glucose POC Capillary Glucose 187 H Hemoglobin A1c 9.2 H Calcium Magnesium Iron TIBC % Saturation AST Total Creatine Kinase Troponin I NT-Pro-B Natriuret Pep Total Protein Albumin Urine Appearance Urine Glucose (UA) Leukocyte Esterase Rfl Urine WBC Protein/Creat Ratio 2 Stl Occult Blood (IFOB) Salicylates Acetaminophen 06/25/24 06/26/24 06/26/24 23:33 07:25 11:10 WBC 4.1 L RBC 3.00 L Hgb 9.4 L Hct 30.0 L MCV MCHC 31.3 L RDW 15.1 H Plt Count 118 L MPV Immature Gran % (Auto) 2.2 H Neut % (Auto) 83.2 H Lymph % (Auto) 6.7 L [place] % (Auto) Baso % (Auto) Lymph # (Auto) 0.27 L Abs Immat Gran (auto) 0.09 H Absolute Neuts (auto) Neutrophils % (Manual) Lymphocytes % (Manual) Monocytes % (Manual) Abs Lymphs (Manual) Abs Monocytes (Manual) PT D-Dimer 1.79 H ABG pH ABG pCO2 ABG HCO3 ABG O2 Saturation ABG O2 Content VBG pH VBG pCO2 VBG pO2 VBG HCO3 Total Hemoglobin Sodium 133 L Potassium Chloride 90 L Carbon Dioxide Anion Gap 13 H BUN 105 H Creatinine 2.16 H Estimated GFR 29 L Glucose 175 H POC Capillary Glucose 150 H 184 H Hemoglobin A1c Calcium Magnesium Iron TIBC % Saturation AST Total Creatine Kinase Troponin I 0.070 H* NT-Pro-B Natriuret Pep > 80751 H Total Protein 6.0 L Albumin 3.4 L Urine Appearance Urine Glucose (UA) Leukocyte Esterase Rfl Urine WBC Protein/Creat Ratio 2 Stl Occult Blood (IFOB) Salicylates Acetaminophen 06/26/24 06/26/24 06/26/24 14:18 16:02 19:53 WBC 4.3 L RBC 2.91 L Hgb 9.0 L Hct 28.9 L MCV MCHC 31.1 L RDW 15.1 H Plt Count 116 L MPV Immature Gran % (Auto) 0.7 H Neut % (Auto) 85.2 H Lymph % (Auto) 6.9 L [place] % (Auto) Baso % (Auto) Lymph # (Auto) 0.30 L Abs Immat Gran (auto) Absolute Neuts (auto) Neutrophils % (Manual) Lymphocytes % (Manual) Monocytes % (Manual) Abs Lymphs (Manual) Abs Monocytes (Manual) PT D-Dimer ABG pH ABG pCO2 ABG HCO3 ABG O2 Saturation ABG O2 Content VBG pH VBG pCO2 VBG pO2 VBG HCO3 Total Hemoglobin Sodium 133 L Potassium Chloride 90 L Carbon Dioxide 34 H Anion Gap BUN 103 H Creatinine 2.14 H Estimated GFR 30 L Glucose 224 H POC Capillary Glucose 259 H 284 H Hemoglobin A1c Calcium 8.3 L Magnesium Iron TIBC % Saturation AST Total Creatine Kinase Troponin I NT-Pro-B Natriuret Pep Total Protein 6.0 L Albumin 3.2 L Urine Appearance Urine Glucose (UA) Leukocyte Esterase Rfl Urine WBC Protein/Creat Ratio 2 Stl Occult Blood (IFOB) Salicylates Acetaminophen 06/27/24 06/27/24 06/27/24 04:26 07:32 11:39 WBC 4.3 L RBC 2.73 L Hgb 8.4 L Hct 27.0 L MCV MCHC 31.1 L RDW 15.1 H Plt Count 113 L MPV Immature Gran % (Auto) Neut % (Auto) 83.6 H Lymph % (Auto) 8.2 L [place] % (Auto) Baso % (Auto) Lymph # (Auto) 0.35 L Abs Immat Gran (auto) Absolute Neuts (auto) Neutrophils % (Manual) Lymphocytes % (Manual) Monocytes % (Manual) Abs Lymphs (Manual) Abs Monocytes (Manual) PT D-Dimer ABG pH ABG pCO2 ABG HCO3 ABG O2 Saturation ABG O2 Content VBG pH VBG pCO2 VBG pO2 VBG HCO3 Total Hemoglobin Sodium 133 L Potassium Chloride 89 L Carbon Dioxide 33 H Anion Gap BUN 112 H Creatinine 2.17 H Estimated GFR 29 L Glucose 220 H POC Capillary Glucose 211 H 291 H Hemoglobin A1c Calcium 8.2 L Magnesium Iron TIBC % Saturation AST Total Creatine Kinase Troponin I NT-Pro-B Natriuret Pep Total Protein 6.0 L Albumin 3.1 L Urine Appearance Urine Glucose (UA) Leukocyte Esterase Rfl Urine WBC Protein/Creat Ratio 2 Stl Occult Blood (IFOB) Salicylates Acetaminophen 06/27/24 06/27/24 06/28/24 16:34 20:02 04:21 WBC 3.9 L RBC 2.80 L Hgb 8.4 L Hct 27.7 L MCV MCHC 30.3 L RDW 15.2 H Plt Count 104 L MPV Immature Gran % (Auto) 0.8 H Neut % (Auto) 81.4 H Lymph % (Auto) 10.3 L [place] % (Auto) Baso % (Auto) 0.0 L Lymph # (Auto) 0.40 L Abs Immat Gran (auto) Absolute Neuts (auto) Neutrophils % (Manual) Lymphocytes % (Manual) Monocytes % (Manual) Abs Lymphs (Manual) Abs Monocytes (Manual) PT D-Dimer ABG pH ABG pCO2 ABG HCO3 ABG O2 Saturation ABG O2 Content VBG pH VBG pCO2 VBG pO2 VBG HCO3 Total Hemoglobin Sodium 132 L Potassium Chloride 90 L Carbon Dioxide 33 H Anion Gap BUN 107 H Creatinine 2.44 H Estimated GFR 26 L Glucose 224 H POC Capillary Glucose 271 H 290 H Hemoglobin A1c Calcium 8.2 L Magnesium Iron TIBC % Saturation AST 16 L Total Creatine Kinase Troponin I NT-Pro-B Natriuret Pep Total Protein 6.0 L Albumin 3.1 L Urine Appearance Urine Glucose (UA) Leukocyte Esterase Rfl Urine WBC Protein/Creat Ratio 2 Stl Occult Blood (IFOB) Salicylates Acetaminophen 06/28/24 06/28/24 06/28/24 07:39 11:12 17:10 WBC RBC Hgb Hct MCV MCHC RDW Plt Count MPV Immature Gran % (Auto) Neut % (Auto) Lymph % (Auto) [place] % (Auto) Baso % (Auto) Lymph # (Auto) Abs Immat Gran (auto) Absolute Neuts (auto) Neutrophils % (Manual) Lymphocytes % (Manual) Monocytes % (Manual) Abs Lymphs (Manual) Abs Monocytes (Manual) PT D-Dimer ABG pH ABG pCO2 ABG HCO3 ABG O2 Saturation ABG O2 Content VBG pH VBG pCO2 VBG pO2 VBG HCO3 Total Hemoglobin Sodium Potassium Chloride Carbon Dioxide Anion Gap BUN Creatinine Estimated GFR Glucose POC Capillary Glucose 226 H 314 H 311 H Hemoglobin A1c Calcium Magnesium Iron TIBC % Saturation AST Total Creatine Kinase Troponin I NT-Pro-B Natriuret Pep Total Protein Albumin Urine Appearance Urine Glucose (UA) Leukocyte Esterase Rfl Urine WBC Protein/Creat Ratio 2 Stl Occult Blood (IFOB) Salicylates Acetaminophen 06/28/24 06/29/24 06/29/24 19:42 04:26 07:29 WBC RBC 2.78 L Hgb 8.4 L Hct 27.6 L MCV MCHC 30.4 L RDW 15.1 H Plt Count 104 L MPV Immature Gran % (Auto) 0.8 H Neut % (Auto) 82.8 H Lymph % (Auto) 8.5 L [place] % (Auto) Baso % (Auto) Lymph # (Auto) 0.43 L Abs Immat Gran (auto) 0.04 H Absolute Neuts (auto) Neutrophils % (Manual) Lymphocytes % (Manual) Monocytes % (Manual) Abs Lymphs (Manual) Abs Monocytes (Manual) PT D-Dimer ABG pH ABG pCO2 ABG HCO3 ABG O2 Saturation ABG O2 Content VBG pH VBG pCO2 VBG pO2 VBG HCO3 Total Hemoglobin Sodium 131 L Potassium 5.2 H Chloride 90 L Carbon Dioxide 33 H Anion Gap BUN 110 H Creatinine 2.62 H Estimated GFR 24 L Glucose 245 H POC Capillary Glucose 292 H 238 H Hemoglobin A1c Calcium 7.9 L Magnesium Iron TIBC % Saturation AST 15 L Total Creatine Kinase Troponin I NT-Pro-B Natriuret Pep Total Protein 6.0 L Albumin 3.0 L Urine Appearance Urine Glucose (UA) Leukocyte Esterase Rfl Urine WBC Protein/Creat Ratio 2 Stl Occult Blood (IFOB) Salicylates Acetaminophen 06/29/24 06/29/24 06/29/24 11:38 15:45 19:50 WBC RBC Hgb Hct MCV MCHC RDW Plt Count MPV Immature Gran % (Auto) Neut % (Auto) Lymph % (Auto) [place] % (Auto) Baso % (Auto) Lymph # (Auto) Abs Immat Gran (auto) Absolute Neuts (auto) Neutrophils % (Manual) Lymphocytes % (Manual) Monocytes % (Manual) Abs Lymphs (Manual) Abs Monocytes (Manual) PT D-Dimer ABG pH ABG pCO2 ABG HCO3 ABG O2 Saturation ABG O2 Content VBG pH VBG pCO2 VBG pO2 VBG HCO3 Total Hemoglobin Sodium Potassium Chloride Carbon Dioxide Anion Gap BUN Creatinine Estimated GFR Glucose POC Capillary Glucose 251 H 249 H 286 H Hemoglobin A1c Calcium Magnesium Iron TIBC % Saturation AST Total Creatine Kinase Troponin I NT-Pro-B Natriuret Pep Total Protein Albumin Urine Appearance Urine Glucose (UA) Leukocyte Esterase Rfl Urine WBC Protein/Creat Ratio 2 Stl Occult Blood (IFOB) Salicylates Acetaminophen 06/30/24 06/30/24 06/30/24 04:20 07:24 11:16 WBC RBC 2.75 L Hgb 8.4 L Hct 27.3 L MCV MCHC 30.8 L RDW 15.5 H Plt Count 96 L MPV Immature Gran % (Auto) 0.7 H Neut % (Auto) 86.1 H Lymph % (Auto) 6.3 L [place] % (Auto) Baso % (Auto) Lymph # (Auto) 0.35 L Abs Immat Gran (auto) 0.04 H Absolute Neuts (auto) Neutrophils % (Manual) Lymphocytes % (Manual) Monocytes % (Manual) Abs Lymphs (Manual) Abs Monocytes (Manual) PT D-Dimer ABG pH ABG pCO2 ABG HCO3 ABG O2 Saturation ABG O2 Content VBG pH VBG pCO2 VBG pO2 VBG HCO3 Total Hemoglobin Sodium 131 L Potassium 5.3 H Chloride 90 L Carbon Dioxide 33 H Anion Gap BUN 114 H Creatinine 2.66 H Estimated GFR 23 L Glucose 192 H POC Capillary Glucose 176 H 276 H Hemoglobin A1c Calcium 8.0 L Magnesium Iron TIBC % Saturation AST Total Creatine Kinase Troponin I NT-Pro-B Natriuret Pep Total Protein 6.0 L Albumin 3.1 L Urine Appearance Urine Glucose (UA) Leukocyte Esterase Rfl Urine WBC Protein/Creat Ratio 2 Stl Occult Blood (IFOB) Salicylates Acetaminophen 06/30/24 06/30/24 07/01/24 16:07 19:48 04:35 WBC RBC 2.75 L Hgb 8.4 L Hct 27.4 L MCV MCHC 30.7 L RDW 15.6 H Plt Count 92 L MPV 10.7 H Immature Gran % (Auto) 0.6 H Neut % (Auto) 86.4 H Lymph % (Auto) 6.1 L [place] % (Auto) Baso % (Auto) Lymph # (Auto) 0.32 L Abs Immat Gran (auto) Absolute Neuts (auto) Neutrophils % (Manual) Lymphocytes % (Manual) Monocytes % (Manual) Abs Lymphs (Manual) Abs Monocytes (Manual) PT D-Dimer ABG pH ABG pCO2 ABG HCO3 ABG O2 Saturation ABG O2 Content VBG pH VBG pCO2 VBG pO2 VBG HCO3 Total Hemoglobin Sodium 130 L Potassium 5.8 H Chloride 89 L Carbon Dioxide 32 H Anion Gap BUN 111 H Creatinine 2.51 H Estimated GFR 25 L Glucose 223 H POC Capillary Glucose 323 H 305 H Hemoglobin A1c Calcium 8.2 L Magnesium 2.7 H Iron 39 L TIBC 263 L % Saturation 15 L AST Total Creatine Kinase Troponin I NT-Pro-B Natriuret Pep Total Protein 6.0 L Albumin 3.2 L Urine Appearance Urine Glucose (UA) Leukocyte Esterase Rfl Urine WBC Protein/Creat Ratio 2 Stl Occult Blood (IFOB) Salicylates Acetaminophen 07/01/24 07/01/24 07/01/24 07:14 11:22 15:39 WBC RBC Hgb Hct MCV MCHC RDW Plt Count MPV Immature Gran % (Auto) Neut % (Auto) Lymph % (Auto) [place] % (Auto) Baso % (Auto) Lymph # (Auto) Abs Immat Gran (auto) Absolute Neuts (auto) Neutrophils % (Manual) Lymphocytes % (Manual) Monocytes % (Manual) Abs Lymphs (Manual) Abs Monocytes (Manual) PT D-Dimer ABG pH ABG pCO2 ABG HCO3 ABG O2 Saturation ABG O2 Content VBG pH VBG pCO2 VBG pO2 VBG HCO3 Total Hemoglobin Sodium Potassium Chloride Carbon Dioxide Anion Gap BUN Creatinine Estimated GFR Glucose POC Capillary Glucose 224 H 244 H 297 H Hemoglobin A1c Calcium Magnesium Iron TIBC % Saturation AST Total Creatine Kinase Troponin I NT-Pro-B Natriuret Pep Total Protein Albumin Urine Appearance Urine Glucose (UA) Leukocyte Esterase Rfl Urine WBC Protein/Creat Ratio 2 Stl Occult Blood (IFOB) Salicylates Acetaminophen 07/01/24 07/02/24 07/02/24 20:26 04:15 07:16 WBC RBC 2.73 L Hgb 8.2 L Hct 27.4 L MCV 100.4 H MCHC 29.9 L RDW 15.4 H Plt Count 97 L MPV 10.5 H Immature Gran % (Auto) Neut % (Auto) Lymph % (Auto) [place] % (Auto) Baso % (Auto) Lymph # (Auto) Abs Immat Gran (auto) Absolute Neuts (auto) Neutrophils % (Manual) 87 H Lymphocytes % (Manual) 6.0 L Monocytes % (Manual) 2 L Abs Lymphs (Manual) 0.33 L Abs Monocytes (Manual) PT D-Dimer ABG pH ABG pCO2 ABG HCO3 ABG O2 Saturation ABG O2 Content VBG pH VBG pCO2 VBG pO2 VBG HCO3 Total Hemoglobin Sodium 131 L Potassium 5.8 H Chloride 91 L Carbon Dioxide 33 H Anion Gap BUN 116 H Creatinine 2.78 H Estimated GFR 22 L Glucose 204 H POC Capillary Glucose 300 H 237 H Hemoglobin A1c Calcium 8.0 L Magnesium 2.7 H Iron TIBC % Saturation AST Total Creatine Kinase Troponin I NT-Pro-B Natriuret Pep Total Protein 6.0 L Albumin 3.2 L Urine Appearance Urine Glucose (UA) Leukocyte Esterase Rfl Urine WBC Protein/Creat Ratio 2 Stl Occult Blood (IFOB) Salicylates Acetaminophen 07/02/24 07/02/24 07/02/24 11:19 12:27 13:32 WBC RBC Hgb Hct MCV MCHC RDW Plt Count MPV Immature Gran % (Auto) Neut % (Auto) Lymph % (Auto) [place] % (Auto) Baso % (Auto) Lymph # (Auto) Abs Immat Gran (auto) Absolute Neuts (auto) Neutrophils % (Manual) Lymphocytes % (Manual) Monocytes % (Manual) Abs Lymphs (Manual) Abs Monocytes (Manual) PT D-Dimer ABG pH 7.249 L* ABG pCO2 76.1 H* ABG HCO3 32.5 H ABG O2 Saturation 94.9 L ABG O2 Content 12.3 L VBG pH VBG pCO2 VBG pO2 VBG HCO3 Total Hemoglobin 9.1 L Sodium Potassium Chloride Carbon Dioxide Anion Gap BUN Creatinine Estimated GFR Glucose POC Capillary Glucose 182 H Hemoglobin A1c Calcium Magnesium Iron TIBC % Saturation AST Total Creatine Kinase Troponin I NT-Pro-B Natriuret Pep Total Protein Albumin Urine Appearance Urine Glucose (UA) Leukocyte Esterase Rfl Urine WBC Protein/Creat Ratio 2 Stl Occult Blood (IFOB) Positive H Salicylates Acetaminophen 07/02/24 07/02/24 07/03/24 16:29 20:55 04:38 WBC RBC Hgb Hct MCV MCHC RDW Plt Count MPV Immature Gran % (Auto) Neut % (Auto) Lymph % (Auto) [place] % (Auto) Baso % (Auto) Lymph # (Auto) Abs Immat Gran (auto) Absolute Neuts (auto) Neutrophils % (Manual) Lymphocytes % (Manual) Monocytes % (Manual) Abs Lymphs (Manual) Abs Monocytes (Manual) PT D-Dimer ABG pH ABG pCO2 ABG HCO3 ABG O2 Saturation ABG O2 Content VBG pH VBG pCO2 VBG pO2 VBG HCO3 Total Hemoglobin Sodium Potassium Chloride Carbon Dioxide Anion Gap BUN Creatinine Estimated GFR Glucose POC Capillary Glucose 215 H 336 H Hemoglobin A1c Calcium Magnesium Iron TIBC % Saturation AST Total Creatine Kinase 28 L Troponin I NT-Pro-B Natriuret Pep Total Protein Albumin Urine Appearance Urine Glucose (UA) Leukocyte Esterase Rfl Urine WBC Protein/Creat Ratio 2 Stl Occult Blood (IFOB) Salicylates Acetaminophen 07/03/24 07/03/24 07/03/24 04:39 07:25 11:38 WBC 3.8 L RBC 2.76 L Hgb 8.4 L Hct 28.1 L MCV 101.8 H MCHC 29.9 L RDW 15.6 H Plt Count 95 L MPV Immature Gran % (Auto) Neut % (Auto) Lymph % (Auto) [place] % (Auto) Baso % (Auto) Lymph # (Auto) Abs Immat Gran (auto) Absolute Neuts (auto) Neutrophils % (Manual) 94 H Lymphocytes % (Manual) 5.0 L Monocytes % (Manual) 1 L Abs Lymphs (Manual) 0.19 L Abs Monocytes (Manual) 0.03 L PT D-Dimer ABG pH ABG pCO2 ABG HCO3 ABG O2 Saturation ABG O2 Content VBG pH VBG pCO2 VBG pO2 VBG HCO3 Total Hemoglobin Sodium 130 L Potassium 5.8 H Chloride 89 L Carbon Dioxide Anion Gap BUN 118 H Creatinine 2.58 H Estimated GFR 24 L Glucose 316 H POC Capillary Glucose 316 H 327 H Hemoglobin A1c Calcium 8.1 L Magnesium 2.8 H Iron TIBC % Saturation AST Total Creatine Kinase Troponin I NT-Pro-B Natriuret Pep Total Protein 6.0 L Albumin 3.4 L Urine Appearance Urine Glucose (UA) Leukocyte Esterase Rfl Urine WBC Protein/Creat Ratio 2 Stl Occult Blood (IFOB) Salicylates Acetaminophen 07/03/24 07/03/24 07/03/24 12:00 16:16 20:00 WBC RBC Hgb Hct MCV MCHC RDW Plt Count MPV Immature Gran % (Auto) Neut % (Auto) Lymph % (Auto) [place] % (Auto) Baso % (Auto) Lymph # (Auto) Abs Immat Gran (auto) Absolute Neuts (auto) Neutrophils % (Manual) Lymphocytes % (Manual) Monocytes % (Manual) Abs Lymphs (Manual) Abs Monocytes (Manual) PT D-Dimer ABG pH ABG pCO2 ABG HCO3 ABG O2 Saturation ABG O2 Content VBG pH VBG pCO2 VBG pO2 VBG HCO3 Total Hemoglobin Sodium Potassium Chloride Carbon Dioxide Anion Gap BUN Creatinine Estimated GFR Glucose POC Capillary Glucose 268 H 288 H Hemoglobin A1c Calcium Magnesium Iron TIBC % Saturation AST Total Creatine Kinase Troponin I NT-Pro-B Natriuret Pep Total Protein Albumin Urine Appearance Urine Glucose (UA) 2+ H Leukocyte Esterase Rfl Urine WBC Protein/Creat Ratio 2 0.30 H Stl Occult Blood (IFOB) Salicylates Acetaminophen 07/04/24 07/04/24 07/04/24 04:10 08:14 11:31 WBC RBC 2.70 L Hgb 8.3 L Hct 27.1 L MCV 100.4 H MCHC 30.6 L RDW 15.9 H Plt Count 104 L MPV Immature Gran % (Auto) Neut % (Auto) 97.7 H Lymph % (Auto) 1.1 L [place] % (Auto) 0.8 L Baso % (Auto) 0.0 L Lymph # (Auto) 0.08 L Abs Immat Gran (auto) Absolute Neuts (auto) 7.2 H Neutrophils % (Manual) Lymphocytes % (Manual) Monocytes % (Manual) Abs Lymphs (Manual) Abs Monocytes (Manual) PT D-Dimer ABG pH ABG pCO2 ABG HCO3 ABG O2 Saturation ABG O2 Content VBG pH VBG pCO2 VBG pO2 VBG HCO3 Total Hemoglobin Sodium 130 L Potassium 5.9 H Chloride 88 L Carbon Dioxide 31 H Anion Gap BUN 122 H Creatinine 2.76 H Estimated GFR 22 L Glucose 313 H POC Capillary Glucose 346 H 359 H Hemoglobin A1c Calcium 7.9 L Magnesium Iron TIBC % Saturation AST Total Creatine Kinase Troponin I NT-Pro-B Natriuret Pep Total Protein 6.0 L Albumin 3.4 L Urine Appearance Urine Glucose (UA) Leukocyte Esterase Rfl Urine WBC Protein/Creat Ratio 2 Stl Occult Blood (IFOB) Salicylates Acetaminophen 07/04/24 14:00 WBC RBC Hgb Hct MCV MCHC RDW Plt Count MPV Immature Gran % (Auto) Neut % (Auto) Lymph % (Auto) [place] % (Auto) Baso % (Auto) Lymph # (Auto) Abs Immat Gran (auto) Absolute Neuts (auto) Neutrophils % (Manual) Lymphocytes % (Manual) Monocytes % (Manual) Abs Lymphs (Manual) Abs Monocytes (Manual) PT D-Dimer ABG pH ABG pCO2 50.9 H ABG HCO3 27.5 H ABG O2 Saturation ABG O2 Content 11.6 L VBG pH VBG pCO2 VBG pO2 VBG HCO3 Total Hemoglobin 8.6 L Sodium Potassium Chloride Carbon Dioxide Anion Gap BUN Creatinine Estimated GFR Glucose POC Capillary Glucose Hemoglobin A1c Calcium Magnesium Iron TIBC % Saturation AST Total Creatine Kinase Troponin I NT-Pro-B Natriuret Pep Total Protein Albumin Urine Appearance Urine Glucose (UA) Leukocyte Esterase Rfl Urine WBC Protein/Creat Ratio 2 Stl Occult Blood (IFOB) Salicylates Acetaminophen
[2024-07-04 16:30] LABS: Glucose Point of Care 383 mg/dl (65-105)
[2024-07-04] MEDS: FUROSEMIDE INJ 40 MG/4 ML VIAL IV PUSH (16:39)
[2024-07-04 20:57] LABS: Glucose Point of Care 380 mg/dl (65-105)
[2024-07-04] MEDS: INSULIN GLARGINE (*BKC) 100 UNITS/ML 8 UNITS SUB-Q (21:20)
[2024-07-04] MEDS: TAMSULOSIN HCL 0.4 MG CAPSULE PO (21:21)
[2024-07-04] MEDS: ATORVASTATIN 40 MG TABLET PO (21:21)
[2024-07-05] VITALS (25 sets, daily range): BP systolic 90–109; BP diastolic 38–64; PULSE 60–93; RESP 16–25; TEMP 36–36.8; O2SAT 95–100
[2024-07-05] MEDS: SODIUM ZIRCONIUM CYCLOSILICATE 10 GM POWD.PACK PO ×2 (00:22→08:58)
[2024-07-05] MEDS: IPRATROPIUM 0.5 MG/ALBUTEROL SULFATE 2.5 MG AMPUL.NEB 3 ML INHALATION ×5 (00:26→20:00)
[2024-07-05 04:55] LABS: Hematocrit 26.1 % (42.0-52.0); Hemoglobin 7.8 g/dL (14.0-18.0); Immature Granulocyte Absolute 0.03 K/mm3 (0.00-0.031); Immature Granulocyte Percent A 0.6 % (0-0.5); Lymphocytes Absolute Auto 0.15 K/mm3 (0.9-3.2); Lymphocytes Percent Auto 2.9 % (18.3-44.2); Mean Corpuscular HGB Conc 29.9 g/dl (32-36); Mean Corpuscular Hemoglobin 30.5 pg (26-34); Mean Platelet Volume 10.3 fl (7.4-10.4); Monocytes Absolute Auto 0.3 K/mm3 (0.1-0.6); Monocytes Percent Auto 6.4 % (2.6-8.5); Neutrophils Absolute Auto 4.6 K/mm3 (1.3-6.7); Neutrophils Percent Auto 90.1 % (45.5-73.1); Platelet Count Result 111 k/mm3 (150-375); Red Blood Count 2.56 M/mm3 (4.6-6.20); Red Cell Distribution Width 15.9 % (11.5-14.5); White Blood Count 5.2 K/mm3 (4.5-10.0)
[2024-07-05 05:07] LABS: Alanine Aminotransferase 16 U/L (6-50); Albumin Level 3.3 g/dL (3.5-5.1); Alkaline Phosphatase 68 U/L (38-126); Anion Gap 10 mmol/L (4-12); Aspartate Amino Transferase 18 U/L (17-59); Bilirubin,Total 0.5 mg/dL (0.2-1.3); Calcium 7.7 mg/dL (8.4-10.2); Carbon Dioxide 31 mmol/L (22-30); Chloride 88 mmol/L (98-107); Estimated CRCL calculation 22 ml/min; Estimated Glomerular Filt Rate 23; Glucose 344 mg/dL (65-110); Magnesium 2.8 mg/dL (1.6-2.3); Phosphorus 4.6 mg/dL (2.5-4.5); Potassium 5.2 mmol/L (3.4-5.0); Sodium 129 mmol/L (137-145)
[2024-07-05 05:20] LABS: Blood Urea Nitrogen 128 mg/dL (9-20)
[2024-07-05 08:00] LABS: Glucose Point of Care 349 mg/dl (65-105)
[2024-07-05] MEDS: FLUTICASONE/SALMETEROL 115-21 MCG INHALER 1 PUFF 2 PUFF INHALATION ×2 (08:16→20:07)
[2024-07-05] MEDS: FOLIC ACID 1 MG TABLET PO (08:56)
[2024-07-05] MEDS: ASPIRIN 81 MG ENTERIC TABLET PO (08:56)
[2024-07-05] MEDS: FERROUS SULFATE 325 MG TABLET DR PO (08:56)
[2024-07-05] MEDS: FINASTERIDE 5 MG TABLET PO (08:56)
[2024-07-05] MEDS: CHOLECALCIFEROL 1,000 UNITS TABLET 1000 UNITS PO (08:56)
[2024-07-05] MEDS: ISOSORBIDE MONONITRATE 15 MG TAB.ER.24H PO (08:56)
[2024-07-05] MEDS: METOPROLOL SUCCINATE EXT REL 25 MG TABCR PO (08:57)
[2024-07-05] MEDS: CYANOCOBALAMIN 1,000 MCG TABLET 1000 MCG PO (08:57)
[2024-07-05] MEDS: FUROSEMIDE INJ 40 MG/4 ML VIAL IV PUSH (08:57)
[2024-07-05] MEDS: PANTOPRAZOLE 40 MG TABLET PO (08:57)
[2024-07-05] MEDS: INSULIN ASPART (*BKC) 100 UNITS/ML SUB-Q ×2 (08:57→13:39)
[2024-07-05] MEDS: polyethylene glycoL 3350 17 GM POWD.PACK PO (08:57)
[2024-07-05 09:08] LABS: Hepatitis B Core Ab Total NON-REACTIVE (NON-REACTIVE)
[2024-07-05 11:42] LABS: Glucose Point of Care 377 mg/dl (65-105)
--- NOTE | 2024-07-05 11:49 | P.PNNP_ITS ---
Progress Note: A&P Assessment and Plan (1) Acute kidney injury: Code(s): N17.9 - Acute kidney failure, unspecified Status: Acute Assessment and Plan: * noted on admission * suspect due to several issues: * volume overload * infection (UTI) * previous IV diuresis * outpatient diuretics prior to admission * hypoxia * relative hypotension * contrast exposure (although creatinine elevated even prior to this...) * Outpatient baseline of creatinine seems to be around 1.8-2.3. * His creatinine was 1.9 when he was admitted but that was when he was severely volume overloaded. * The patient still has swelling and shortness of breath. Intake/output still fairly even. This is in spite of furosemide 40 b.i.d.. * Will change to Bumex 2mg b.i.d. and add metolazone. (2) Chronic kidney disease, stage IV (severe): Code(s): N18.4 - Chronic kidney disease, stage 4 (severe) Status: Chronic Assessment and Plan: * baseline creatinine runs ~ 1.8 - 2.3mg/dl (from review of [place] records) * however, given his multiple admissions for volume overload/acute hypoxic respiratory failure and the need for diuresis, his creatinine has run in the 3ish range * furthermore, he tends have significant azotemia with BUNs running in the 100s+ range (presumably due to diuretics and prerenal factors) * due to hypertension, diabetes, CHF/cardiomyopathy with necessity of chronic diuretic therapy, vascular disease and age-related change * follows with Nephrology at [facility] * according to his , there have been ongoing discussions about dialysis with his palliative care team at [facility]. (3) Acute and chronic respiratory failure with hypercapnia: Code(s): J96.22 - Acute and chronic respiratory failure with hypercapnia Status: Acute Assessment and Plan: * due to combo of CHF and COPD complicated by his AFUA * on BiPAP therapy PRN and IV steroids * increase diuretics to remove fluid (4) CHF (congestive heart failure): Code(s): I50.9 - Heart failure, unspecified Status: Chronic Assessment and Plan: * known history * Echo (06/10) noted: * left ventricular systolic function is mildly reduced - estimated at 40-45% * right ventricular systolic function is reduced * bioprosthetic valve appears to be well-seated. Leaflets not well visualized. Peak velocity of 2.5m/s, mean gradient of 13mmHg * no aortic valve regurgitation * mitral valve annulus is severely calcified * mitral valve has thickened leaflets * mild mitral valve regurgitation * moderate tricuspid valve regurgitation * pulmonary hypertension, estimated pulmonary arterial systolic pressure is 66 mmHg * CXR results noted * increase diuretics (5) COPD (chronic obstructive pulmonary disease): Code(s): J44.9 - Chronic obstructive pulmonary disease, unspecified Status: Chronic Assessment and Plan: * exacerbation suspected on admission * follow ABGs * BiPAP as needed * on nebulizers/bronchodilators and IV steroids * continue supportive therapy (6) Acute ischemic stroke: Code(s): I63.9 - Cerebral infarction, unspecified Status: Acute Assessment and Plan: * head CT shown hypodensity in the left posterior temporal/occipital area suggestive of acute/subacute infarct with multiple hyperdensities which may be hemorrhagic areas * head/neck CTA showed severe calcification of the carotid arteries 60% on the right side, bilateral pleural effusion with adjacent atelectasis versus pneumonia * unable to do MRI brain due to pacemaker * Neurololgy following with recommendations * continue PT/OT/ST (7) Sleep apnea: Code(s): G47.30 - Sleep apnea, unspecified Status: Chronic Assessment and Plan: * known history * was not using CPAP machine before admission * BIPAP when resting during the day and at night * noted issues with CO2 retention by ABGs (8) Chronic anemia: Code(s): D64.9 - Anemia, unspecified Status: Chronic Assessment and Plan: * suspect related to CHRISTIAN, CKD, and acute illness * anemia studies also note iron deficiency * on oral iron * s/p IV venofer * dosing with Epogen while hospitalized * hb in the high 7s, low 8s (9) Hypertension: Code(s): I10 - Essential (primary) hypertension Status: Chronic Assessment and Plan: * systolic 90 to 130 * follow trend of hemodynamics (10) DM2 (diabetes mellitus, type 2): Code(s): E11.9 - Type 2 diabetes mellitus without complications Status: Chronic Assessment and Plan: * follow accu-cheks * glycemic control per hospitalist Subjective Date/time seen: 07/05/24 11:49 Interval history: patient is on BiPAP mask. Still somewhat short of breath. Exam Narrative: General: elderly but WD/WN male in NAD; on BiPAP Heart: normal S1 and S2; no rub Lungs: coarse breath sounds with a few crackles at baseline Abdomen: soft, nontender, nondistended, positive bowel sounds Extremities: 2+ edema bilaterally Skin: No rash Objective Data Vital Signs Vital Signs: Vital Signs - 24 hr 07/04/24 11:58 07/04/24 11:58 07/04/24 12:00 Temperature 98.4 F Pulse Rate 77 77 58 L Respiratory Rate 27 H 27 H 23 H Blood Pressure 114/45 L Pulse Oximetry 96 97 Oxygen Delivery BiPAP Oxygen Flow Rate Fraction of Inspired Oxygen 07/04/24 12:00 07/04/24 12:00 07/04/24 12:34 Temperature Pulse Rate 61 58 L 68 Respiratory Rate 22 H Blood Pressure Pulse Oximetry 97 Oxygen Delivery BiPAP Oxygen Flow Rate Fraction of Inspired Oxygen 07/04/24 14:00 07/04/24 14:55 07/04/24 14:57 Temperature Pulse Rate 60 61 61 Respiratory Rate 22 H 22 H Blood Pressure Pulse Oximetry 98 Oxygen Delivery BiPAP Oxygen Flow Rate Fraction of Inspired Oxygen 07/04/24 15:03 07/04/24 16:00 07/04/24 16:00 Temperature Pulse Rate 62 60 Respiratory Rate 22 H Blood Pressure Pulse Oximetry 99 Oxygen Delivery BiPAP Oxygen Flow Rate Fraction of Inspired Oxygen 07/04/24 16:00 07/04/24 18:00 07/04/24 19:57 Temperature 98.5 F Pulse Rate 59 L 60 60 Respiratory Rate 24 H 23 H Blood Pressure 103/45 L Pulse Oximetry 98 98 Oxygen Delivery BiPAP Oxygen Flow Rate Fraction of Inspired Oxygen 07/04/24 19:58 07/04/24 20:00 07/04/24 20:00 Temperature 98.3 F Pulse Rate 60 60 Respiratory Rate 23 H 19 Blood Pressure 104/40 L Pulse Oximetry 98 98 Oxygen Delivery BiPAP Oxygen Flow Rate Fraction of Inspired Oxygen 28 07/04/24 20:00 07/04/24 22:00 07/05/24 00:00 Temperature 98.2 F Pulse Rate 60 60 60 Respiratory Rate 18 Blood Pressure 97/45 L Pulse Oximetry 100 Oxygen Delivery Oxygen Flow Rate Fraction of Inspired Oxygen 07/05/24 00:00 07/05/24 00:00 07/05/24 00:25 Temperature Pulse Rate 82 61 Respiratory Rate 24 H Blood Pressure Pulse Oximetry 98 97 Oxygen Delivery BiPAP BiPAP Oxygen Flow Rate Fraction of Inspired Oxygen 28 07/05/24 02:00 07/05/24 04:00 07/05/24 04:00 Temperature 97.9 F Pulse Rate 72 60 Respiratory Rate 19 Blood Pressure 95/38 L Pulse Oximetry 100 96 Oxygen Delivery Nasal Cannula Oxygen Flow Rate 2 Fraction of Inspired Oxygen 07/05/24 04:00 07/05/24 04:47 07/05/24 06:00 Temperature Pulse Rate 62 63 60 Respiratory Rate 22 H Blood Pressure Pulse Oximetry 97 Oxygen Delivery BiPAP Oxygen Flow Rate Fraction of Inspired Oxygen 07/05/24 07:43 07/05/24 07:45 07/05/24 08:00 Temperature 96.8 F L Pulse Rate 60 60 62 Respiratory Rate 17 17 20 Blood Pressure 102/42 L Pulse Oximetry 96 100 Oxygen Delivery BiPAP Oxygen Flow Rate Fraction of Inspired Oxygen 07/05/24 08:00 07/05/24 08:12 07/05/24 08:13 Temperature Pulse Rate 67 Respiratory Rate 20 Blood Pressure Pulse Oximetry 98 98 Oxygen Delivery Autopap Nasal Cannula Oxygen Flow Rate 2 Fraction of Inspired Oxygen 07/05/24 08:57 Temperature Pulse Rate 60 Respiratory Rate Blood Pressure Pulse Oximetry Oxygen Delivery Oxygen Flow Rate Fraction of Inspired Oxygen Intake/Output Intake/Output: Intake & Output 07/02/24 07/03/24 07/04/24 07/05/24 23:59 23:59 23:59 23:59 Intake Total 207 060 0172 440 Output Total 650 650 950 400 Balance 50 -170 570 40 Meds/Results Medications: Active Medications Generic Name Dose Route Start Last Admin Trade Name Freq PRN Reason Stop Dose Admin Acetaminophen 650 mg 06/25/24 23:05 07/03/24 17:50 Acetaminophen 325 Mg Tablet PO 650 mg Q4H PRN Administration Mild Pain (1-3) or Fever Albuterol/Ipratropium 3 ml 07/02/24 13:50 07/05/24 07:42 Ipratropium 0.5 Mg/Albuterol Sulfate 2.5 Mg Ampul.Neb 3 Ml INHALATION 3 ml Q4HRT WARD Administration Aspirin 81 mg 07/01/24 09:00 07/05/24 08:56 Aspirin 81 Mg Enteric Tablet PO 81 mg QAM WARD Administration Atorvastatin Calcium 40 mg 06/25/24 23:10 07/04/24 21:21 Atorvastatin 40 Mg Tablet PO 40 mg HS WARD Administration Cyanocobalamin 1,000 mcg 06/26/24 09:00 07/05/24 08:57 Cyanocobalamin 1,000 Mcg Tablet PO 1,000 mcg DAILY WARD Administration Dextrose 12.5 gm 06/26/24 04:23 Dextrose 50% 25 Gm/50 Ml Syringe IV PUSH PRN PRN Hypoglycemia Protocol Epoetin Edwin-epbx 10,000 units 07/04/24 09:00 07/04/24 10:41 Epoetin Edwin-Epbx 10,000 Units/Ml Vial SUB-Q 10,000 units TUTHSA@09 WARD Administration Ferrous Sulfate 325 mg 06/26/24 09:00 07/05/24 08:56 Ferrous Sulfate [address] PO 325 mg BID WARD Administration Finasteride 5 mg 06/26/24 09:00 07/05/24 08:56 Finasteride 5 Mg Tablet PO 5 mg DAILY WARD Administration Folic Acid 1 mg 06/26/24 09:00 07/05/24 08:56 Folic Acid 1 Mg Tablet PO 1 mg DAILY WARD Administration Furosemide 40 mg 06/26/24 09:00 07/05/24 08:57 Furosemide Inj 40 Mg/4 Ml Vial IV PUSH 40 mg BID WARD Administration Glucagon 1 mg 06/26/24 04:23 Glucagon For Inj 1 Mg Vial IM PRN PRN Hypoglycemia Protocol Glucose 15 gm 06/26/24 04:23 Glucose Oral Gel 15 Gm Of Glucse In 37.5 Gm Tube PO PRN PRN Hypoglycemia Protocol Dextrose 1,000 mls @ 100 mls/hr 06/26/24 04:23 Dextrose 5% 1,000 Ml IVPB PRN PRN Hypoglycemia Protocol Insulin Aspart 4 - 8 units 06/26/24 08:00 07/05/24 08:57 Insulin Aspart (*Bkc) 100 Units/Ml SUB-Q 6 units TIDWM WARD Administration Protocol Insulin Aspart 2 - 4 units 06/26/24 21:00 07/04/24 21:20 Insulin Aspart (*Bkc) 100 Units/Ml SUB-Q 4 units HS WARD Administration Protocol Insulin Glargine 8 units 06/28/24 21:00 07/04/24 21:20 Insulin Glargine (*Bkc) 100 Units/Ml SUB-Q 8 units HS WARD Administration Isosorbide Mononitrate 15 mg 07/03/24 09:00 07/05/24 08:56 Isosorbide Mononitrate 15 Mg Tab.Er.24h PO 15 mg BID@0900,1600 WARD Administration Metoprolol Succinate 25 mg 06/26/24 09:00 07/05/24 08:57 Metoprolol Succinate Ext Rel 25 Mg Tabcr PO 25 mg QAM WARD Administration Ondansetron HCl 4 mg 06/25/24 23:05 Ondansetron Inj 4 Mg/2 Ml Vial IV PUSH Q6H PRN Nausea And Vomiting Pantoprazole Sodium 40 mg 06/26/24 09:00 07/05/24 08:57 Pantoprazole 40 Mg Tablet PO 40 mg QAM WARD Administration Polyethylene Glycol 17 gm 07/04/24 09:00 07/05/24 08:57 Polyethylene Glycol 3350 17 Gm Powd.Pack PO 17 gm QAM WARD Administration Pregabalin 25 mg 06/26/24 21:00 07/04/24 21:36 Pregabalin (*Crx) 25 Mg Capsule PO Not Given HS [facility] Fluticasone/Salmeterol 2 puff 07/02/24 20:00 07/05/24 08:16 Fluticasone/Salmeterol 115-21 Mcg Inhaler 1 Puff INHALATION 2 puff Q12HRT WARD Administration Sodium Zirconium Cyclosilicate 10 gm 07/02/24 16:50 07/05/24 08:58 Sodium Zirconium Cyclosilicate 10 Gm Powd.Pack PO 10 gm TID@1000,1500,2200 WRAD Administration Tamsulosin HCl 0.4 mg 06/25/24 23:10 07/04/24 21:21 Tamsulosin Hcl 0.4 Mg Capsule PO 0.4 mg QHS [facility] Administration Vitamin D 1,000 units 06/26/24 09:00 07/05/24 08:56 Cholecalciferol 1,000 Units Tablet PO 1,000 units DAILY WARD Administration Wound Care/Dressing Products 1 patch 07/06/24 09:00 Hydrocolloid Dressing (Aquacel) Patch TOPICAL DAILY [facility] Radiology Results: ITS Impressions Head CT 06/24/24 18:31 IMPRESSION: Hypodensity in the left posterior temporal/occipital area which is suggestive of acute/subacute infarct with multiple hyperdensities which may be hemorrhagic areas. Calcification is less likely. MRI evaluation is advised. Physician: Manav Duarte MD Was notified with the result of the patient at time 6:45 PM on June 24, 2024. Head/Neck CTA 06/24/24 19:43 IMPRESSION: 1. Nonvisualization of the distal left posterior cerebral artery. Otherwise normal CTA of the head. 2. CTA of the neck. Shows severe calcification of the carotid arteries. Percent stenosis per NASCET criteria is 60% on the right side. 3. Bilateral pleural effusion with adjacent atelectasis versus pneumonia. Venous Doppler Study 06/26/24 12:46 IMPRESSION: 1. No deep venous thrombosis. Pulmonary Perfusion Imaging 06/26/24 13:58 IMPRESSION: 1. No immediate probability for pulmonary embolism. ADDENDUM: 07/02/24 1044 CORRECTION: There is a dictation error in the impression section. With the correction capitalized this should read- 1. INTERMEDIATE probability for pulmonary embolism. This correction was discussed with Dior Ugarte, the nurse caring for the patient, at 10:40 AM. Chest X-Ray 07/03/24 11:30 Impression: Small bilateral pleural effusions with mild bibasilar pulmonary edema/atelectasis. Stable cardiomegaly, status post CABG and aortic valve replacement, with pacemaker device. Renal Ultrasound 07/03/24 20:41 IMPRESSION: No hydronephrosis or renal calculi. Findings suggesting medical renal disease. Labs Labs: Laboratory Results - last 24 hr 07/04/24 07/04/24 07/04/24 04:10 11:31 14:00 WBC RBC Hgb Hct MCV MCH MCHC RDW Plt Count MPV Immature Gran % (Auto) Neut % (Auto) Lymph % (Auto) Hill % (Auto) Eos % (Auto) Baso % (Auto) Lymph # (Auto) Hill # (Auto) Eos # (Auto) Baso # (Auto) Abs Immat Gran (auto) Absolute Neuts (auto) Absolute Nucleated RBC Nucleated RBC % Puncture Site Right radial ABG pH 7.350 ABG pCO2 50.9 H ABG pO2 84.5 ABG PO2/FiO2 Ratio 3.38 ABG HCO3 27.5 H ABG O2 Saturation 95.8 ABG O2 Content 11.6 L ABG Base Excess 1.5 A-a Gradient 33.3 Oxyhemoglobin 94.9 Total Hemoglobin 8.6 L O2 Delivery Device Non-invasive vent O2 Liters/Min Not Reportable Vent Rate 16 FiO2 25 Expiratory Pressure 6 Inspiratory Pressure 12 Sodium Potassium Chloride Carbon Dioxide Anion Gap BUN Creatinine Estim Creat Clear Calc Estimated GFR Glucose POC Capillary Glucose 359 H Calcium Phosphorus Magnesium Total Bilirubin AST ALT Alkaline Phosphatase Total Protein Albumin Hep B Core Total Ab Non-reactive 07/04/24 07/04/24 07/05/24 16:23 20:55 04:32 WBC 5.2 RBC 2.56 L Hgb 7.8 L Hct 26.1 L MCV 102.0 H MCH 30.5 MCHC 29.9 L RDW 15.9 H Plt Count 111 L MPV 10.3 Immature Gran % (Auto) 0.6 H Neut % (Auto) 90.1 H Lymph % (Auto) 2.9 L Hill % (Auto) 6.4 Eos % (Auto) 0.0 Baso % (Auto) 0.0 L Lymph # (Auto) 0.15 L Hill # (Auto) 0.3 Eos # (Auto) 0.0 Baso # (Auto) 0.0 Abs Immat Gran (auto) 0.03 Absolute Neuts (auto) 4.6 Absolute Nucleated RBC 0.000 Nucleated RBC % 0.0 Puncture Site ABG pH ABG pCO2 ABG pO2 ABG PO2/FiO2 Ratio ABG HCO3 ABG O2 Saturation ABG O2 Content ABG Base Excess A-a Gradient Oxyhemoglobin Total Hemoglobin O2 Delivery Device O2 Liters/Min Vent Rate FiO2 Expiratory Pressure Inspiratory Pressure Sodium 129 L Potassium 5.2 H Chloride 88 L Carbon Dioxide 31 H Anion Gap 10 BUN 128 H Creatinine 2.68 H Estim Creat Clear Calc 22 Estimated GFR 23 L Glucose 344 H POC Capillary Glucose 383 H 380 H Calcium 7.7 L Phosphorus 4.6 H Magnesium 2.8 H Total Bilirubin 0.5 AST 18 ALT 16 Alkaline Phosphatase 68 Total Protein 6.0 L Albumin 3.3 L Hep B Core Total Ab 07/05/24 07/05/24 07:23 11:39 WBC RBC Hgb Hct MCV MCH MCHC RDW Plt Count MPV Immature Gran % (Auto) Neut % (Auto) Lymph % (Auto) Hill % (Auto) Eos % (Auto) Baso % (Auto) Lymph # (Auto) Hill # (Auto) Eos # (Auto) Baso # (Auto) Abs Immat Gran (auto) Absolute Neuts (auto) Absolute Nucleated RBC Nucleated RBC % Puncture Site ABG pH ABG pCO2 ABG pO2 ABG PO2/FiO2 Ratio ABG HCO3 ABG O2 Saturation ABG O2 Content ABG Base Excess A-a Gradient Oxyhemoglobin Total Hemoglobin O2 Delivery Device O2 Liters/Min Vent Rate FiO2 Expiratory Pressure Inspiratory Pressure Sodium Potassium Chloride Carbon Dioxide Anion Gap BUN Creatinine Estim Creat Clear Calc Estimated GFR Glucose POC Capillary Glucose 349 H 377 H Calcium Phosphorus Magnesium Total Bilirubin AST ALT Alkaline Phosphatase Total Protein Albumin Hep B Core Total Ab
--- NOTE | 2024-07-05 12:58 | PCSTNOTE ---
Please refer to the Bedside Swallow Evaluation in the EMR. Please note, silent aspiration cannot be ruled out at bedside. This 84 year old male pt was admitted to [facility] from a longterm facility on 06/25/24 due to altered mental status. Upon admission, the pt completed a head CT that demonstrated an acute ischemic stroke. A bedside swallow evaluation was ordered to evaluate the pts oral intake following ELIAS Palmer noting that the pt demonstrated a wet vocal quality and cough following consumption of thin liquids. Upon entry, pts , Darcie, and granddaughter, Christiane were present. Pt was lying in bed. spoke with family and pt and after gaining permission, ST raised bed upright to 90 degrees and turned off tv to minimize distractions during oral intake. Pt denies dysphagia, and verbalized that he coughs a lot in general . Pt was wet/gurgly at baseline. ELIAS Palmer stated that pt was not sounding like that ~a week ago. Pt has upper and lower dentures, but was edentulous during BSE this date. Trials of thin liquid (ice chips/water) and moderately thick liquids were trialed this date. Pt demonstrated a cough after every trial and a wet/gurgly vocal quality. Pt completed 2 trials of straw sips of thin liquid. On the second trial, the pt had delayed triggering of the swallow and exhibited coughing/choking during the trial. Following this, moderately thick liquid was trialed once in which the pt coughed afterwards and demonstrated a wet/gurgly vocal quality. Due to the high potential for aspiration, ST discontinued the BSE at this time. Please note that silent aspiration cannot be ruled out at bedside. Given the results of the bedside swallow evaluation, a Modified Barium Swallow Study (MBS) is recommended. The MBS cannot be completed today due to no radiologist being on site, but will be completed tomorrow, 07/06. Dr. Jamison, and ELIAS Palmer were notified of BSE results and recommendations. Further diet/tx recommendations will be made following the completion of the MBS. Thank you for this referral.
[2024-07-05] MEDS: SODIUM CHLORIDE 0.9% IV 1,000 ML 50 ML IV CONT (13:39)
--- NOTE | 2024-07-05 13:47 | PC.NURSE ---
Phoned and spoke with Dr. Jamison and informed pt failed bedside swallow and barium swallow has been recommended for 07/06/24, pt also has a blood sugar of 377 requiring 8 Units of sliding scale insulin and pt is currently NPO with no fluids going. Order was given to start Normal Saline at 50ml/h and to give 8 Units of sliding scale per order from Dr. Jamison. Insulin given and Normal saline started per order. Kelsea Proctor RN
--- NOTE | 2024-07-05 14:10 | PCOTNOTE ---
Attempted to see pt for OT treatment. Pt is declining to participate in therapeutic tasks and/or self care tasks stating difficulty breathing despite >90% SPo2. Pt's spouse is present and also stating that today is not a good day for therapy. Pt is educated on the importance of therapy participation as well as decrease frequency due to recent refusals. Will attempt per poc duration/frequency when appropriate.
--- NOTE | 2024-07-05 15:08 | P.PNIM_ITS ---
Progress Note: A&P Assessment and Plan (1) Acute ischemic stroke: Code(s): I63.9 - Cerebral infarction, unspecified Status: Acute Assessment and Plan: * Head CT shown hypodensity in the left posterior temporal/occipital area suggestive of acute/subacute infarct with multiple hyperdensities which may be hemorrhagic areas * Head/neck CTA showed severe calcification of the carotid arteries 60% on the right side, bilateral pleural effusion with adjacent atelectasis versus pneumonia * Unable to do MRI brain due to pacemaker * Continue Aspirin, lipitor * PT/OT/ST * neurology following (2) Acute and chronic respiratory failure with hypercapnia: Code(s): J96.22 - Acute and chronic respiratory failure with hypercapnia Status: Acute Assessment and Plan: From COPD exacerbation abg 7.249/76.1/88.6/32.5 resolving continue Nighttime BiPAP S/p IV steroid per Pulmonology continue bronchodilators monitor (3) CHF (congestive heart failure): Code(s): I50.9 - Heart failure, unspecified Status: Chronic Assessment and Plan: * ProBNP greater than 30,000, patient has 4+ pitting edema to bilateral lower extremities * Troponin 0.078> 0.078> 0.070--likely demand ischemia * ECHO EF 40-45% * On Bumex and Metolazone, per nephrology * Repeat CXR showed no significant change to small to moderate-sized bilateral pleural effusions (4) Elevated d-dimer: Code(s): R79.89 - Other specified abnormal findings of blood chemistry Status: Acute Assessment and Plan: * D-dimer 1.9 * Will get V/Q scan negative for PE * Venous Doppler LE, negative (5) DM2 (diabetes mellitus, type 2): Code(s): E11.9 - Type 2 diabetes mellitus without complications Status: Chronic Assessment and Plan: * Blood sugars ranging 175-230 * Hgb A1C 5.4 on 09/03/2020 * Will recheck hemoglobin A1c * Accu checks AC/HS * High-dose SSI ordered * hypoglycemic protocol in place * Diabetic diet and 2 g sodium diet ordered (6) COPD (chronic obstructive pulmonary disease): Code(s): J44.9 - Chronic obstructive pulmonary disease, unspecified Status: Chronic Assessment and Plan: in exacerbation bronchodilators monitor (7) Hypertension: Code(s): I10 - Essential (primary) hypertension Status: Chronic Assessment and Plan: * Blood pressure ranging 102/54 to 118/72 * Continue isosorbide (8) CAD (coronary artery disease): Code(s): I25.10 - Atherosclerotic heart disease of [place] coronary artery without angina pectoris Status: Chronic Assessment and Plan: * Status post CABG x5 vessel * Continue atorvastatin (9) Pacemaker: Code(s): Z95.0 - Presence of cardiac pacemaker Status: Acute Assessment and Plan: * Ventricular pacemaker in place * EKG showed electronic ventricular pacemaker with a rate of 65, QTC 517 (10) BPH (benign prostatic hyperplasia): Code(s): N40.0 - Benign prostatic hyperplasia without lower urinary tract symptoms Status: Chronic Assessment and Plan: * Continue finasteride and tamsulosin (11) Chronic anemia: Code(s): D64.9 - Anemia, unspecified Status: Chronic Assessment and Plan: * Hemoglobin 9.4-->8.4 * Appears to be chronic * Continue ferrous sulfate * isat 15 and Ferritin 43. * IV Iron 400/1000mg * continue PO Iron (12) Sleep apnea: Code(s): G47.30 - Sleep apnea, unspecified Status: Chronic Assessment and Plan: * Patient currently requiring BiPAP due to hypercapnia Plan CHRISTIAN on CKD , worsening 1.8-2.3. Nephrology wilma noted that patient may have to have to adjust to higher Creatinien thus recommended restarting Lasix, Lasix restarted 40mg bid IV Cr 2.51-->2.68 baseline is about 1.6 Lasix on hold, given worsening fluid overload, patient may need dialysis Nephrology consulted Hyperkalemia K 5.8 Started [facility] Nephrology following iron deficiency anemia Hb 8.2, isat 15 Give 400mg IV iron continue PO Iron monitor DVT prophylaxis on SCDs, hx of hemorrhagic CVA NPO for MBS tomorrow, Subjective Date/time seen: 07/05/24 15:08 Interval history: Feeling better today Pulwesly dillon noted Nephrology changed diuretics to Bumex and Metalazone Review of Systems Review of Systems: All systems reviewed & are unremarkable except as noted in HPI and below Exam Narrative: General: In no acute distress, well nourished Head: atraumatic, no encephalopathy Eyes: PERRLA, sclera clear ENT: moist mucous membranes, nasal passages clear Neck: supple, no JVD, no adenopathy, trachea midline Cardiac: Normal S1 and S2. No murmur, gallops or friction rubs, peripheral pulses intact. Respiratory:Inspiratory and expiratory wheezing, no other adventitious lung sounds, currently on nasal cannula with use of accessory muscles and acute respiratory distress. Gastrointestinal: soft, non-distended, non-tender, normoactive bowel sounds. : voiding without difficulty. Extremities:BUE with good hand out and out cigar maker hand 4/5 bilaterally, 4+ pitting edema to bilateral lower extremities Skin: clean, dry, intact. No wounds or lesions. Neuro: Alert and oriented x4, cranial nerves intact, LUE weakness Psych: normal mood, normal affect, interactive Objective Data Vital Signs Vital Signs: Vital Signs - 24 hr 07/04/24 16:00 07/04/24 16:00 07/04/24 16:00 Temperature 98.5 F Pulse Rate 60 59 L Respiratory Rate 24 H Blood Pressure 103/45 L Pulse Oximetry 99 98 Oxygen Delivery BiPAP Oxygen Flow Rate Fraction of Inspired Oxygen 07/04/24 18:00 07/04/24 19:57 07/04/24 19:58 Temperature Pulse Rate 60 60 60 Respiratory Rate 23 H 23 H Blood Pressure Pulse Oximetry 98 Oxygen Delivery BiPAP Oxygen Flow Rate Fraction of Inspired Oxygen 07/04/24 20:00 07/04/24 20:00 07/04/24 20:00 Temperature 98.3 F Pulse Rate 60 60 Respiratory Rate 19 Blood Pressure 104/40 L Pulse Oximetry 98 98 Oxygen Delivery BiPAP Oxygen Flow Rate Fraction of Inspired Oxygen 07/04/24 22:00 07/05/24 00:00 07/05/24 00:00 Temperature 98.2 F Pulse Rate 60 60 82 Respiratory Rate 18 Blood Pressure 97/45 L Pulse Oximetry 100 Oxygen Delivery Oxygen Flow Rate Fraction of Inspired Oxygen 07/05/24 00:00 07/05/24 00:25 07/05/24 02:00 Temperature Pulse Rate 61 72 Respiratory Rate 24 H Blood Pressure Pulse Oximetry 98 97 Oxygen Delivery BiPAP BiPAP Oxygen Flow Rate Fraction of Inspired Oxygen 07/05/24 04:00 07/05/24 04:00 07/05/24 04:00 Temperature 97.9 F Pulse Rate 60 62 Respiratory Rate 19 Blood Pressure 95/38 L Pulse Oximetry 100 96 Oxygen Delivery Nasal Cannula Oxygen Flow Rate 2 Fraction of Inspired Oxygen 07/05/24 04:47 07/05/24 06:00 07/05/24 07:43 Temperature Pulse Rate 63 60 60 Respiratory Rate 22 H 17 Blood Pressure Pulse Oximetry 97 Oxygen Delivery BiPAP Oxygen Flow Rate Fraction of Inspired Oxygen 07/05/24 07:45 07/05/24 08:00 07/05/24 08:00 Temperature 96.8 F L Pulse Rate 60 62 Respiratory Rate 17 20 Blood Pressure 102/42 L Pulse Oximetry 96 100 98 Oxygen Delivery BiPAP Autopap Oxygen Flow Rate Fraction of Inspired Oxygen 07/05/24 08:12 07/05/24 08:13 07/05/24 08:57 Temperature Pulse Rate 67 60 Respiratory Rate 20 Blood Pressure Pulse Oximetry 98 Oxygen Delivery Nasal Cannula Oxygen Flow Rate 2 Fraction of Inspired Oxygen 07/05/24 12:00 07/05/24 12:00 07/05/24 12:32 Temperature 97.4 F L Pulse Rate 61 60 Respiratory Rate 24 H 20 Blood Pressure 90/44 L Pulse Oximetry 100 100 Oxygen Delivery Autopap Oxygen Flow Rate Fraction of Inspired Oxygen 07/05/24 12:43 Temperature Pulse Rate 60 Respiratory Rate 20 Blood Pressure Pulse Oximetry Oxygen Delivery Oxygen Flow Rate Fraction of Inspired Oxygen Intake/Output Intake/Output: Intake & Output 07/02/24 07/03/24 07/04/24 07/05/24 23:59 23:59 23:59 23:59 Intake Total 454 395 5824 440 Output Total 650 650 950 400 Balance 50 -170 570 40 Meds/Results Medications: Active Medications Generic Name Dose Route Start Last Admin Trade Name Freq PRN Reason Stop Dose Admin Acetaminophen 650 mg 06/25/24 23:05 07/03/24 17:50 Acetaminophen 325 Mg Tablet PO 650 mg Q4H PRN Administration Mild Pain (1-3) or Fever Albuterol/Ipratropium 3 ml 07/02/24 13:50 07/05/24 12:32 Ipratropium 0.5 Mg/Albuterol Sulfate 2.5 Mg Ampul.Neb 3 Ml INHALATION 3 ml Q4HRT WARD Administration Aspirin 81 mg 07/01/24 09:00 07/05/24 08:56 Aspirin 81 Mg Enteric Tablet PO 81 mg QAM WARD Administration Atorvastatin Calcium 40 mg 06/25/24 23:10 07/04/24 21:21 Atorvastatin 40 Mg Tablet PO 40 mg HS WARD Administration Bumetanide 2 mg 07/05/24 11:55 07/05/24 12:37 Bumetanide Inj 2.5 Mg/10 Ml Vial IV PUSH Not Given BID WARD Cyanocobalamin 1,000 mcg 06/26/24 09:00 07/05/24 08:57 Cyanocobalamin 1,000 Mcg Tablet PO 1,000 mcg DAILY WARD Administration Dextrose 12.5 gm 06/26/24 04:23 Dextrose 50% 25 Gm/50 Ml Syringe IV PUSH PRN PRN Hypoglycemia Protocol Epoetin Edwin-epbx 10,000 units 07/04/24 09:00 07/04/24 10:41 Epoetin Edwin-Epbx 10,000 Units/Ml Vial SUB-Q 10,000 units TUTHSA@09 WARD Administration Ferrous Sulfate 325 mg 06/26/24 09:00 07/05/24 08:56 Ferrous Sulfate [address] PO 325 mg BID WARD Administration Finasteride 5 mg 06/26/24 09:00 07/05/24 08:56 Finasteride 5 Mg Tablet PO 5 mg DAILY WARD Administration Folic Acid 1 mg 06/26/24 09:00 07/05/24 08:56 Folic Acid 1 Mg Tablet PO 1 mg DAILY WARD Administration Glucagon 1 mg 06/26/24 04:23 Glucagon For Inj 1 Mg Vial IM PRN PRN Hypoglycemia Protocol Glucose 15 gm 06/26/24 04:23 Glucose Oral Gel 15 Gm Of Glucse In 37.5 Gm Tube PO PRN PRN Hypoglycemia Protocol Dextrose 1,000 mls @ 100 mls/hr 06/26/24 04:23 Dextrose 5% 1,000 Ml IVPB PRN PRN Hypoglycemia Protocol Sodium Chloride 1,000 mls @ 50 mls/hr 07/05/24 13:25 07/05/24 13:39 Normal Saline Iv IV CONT 50 mls/hr .Q20H WARD Administration Insulin Aspart 4 - 8 units 06/26/24 08:00 07/05/24 13:39 Insulin Aspart (*Bkc) 100 Units/Ml SUB-Q 8 units TIDWM WARD Administration Protocol Insulin Aspart 2 - 4 units 06/26/24 21:00 07/04/24 21:20 Insulin Aspart (*Bkc) 100 Units/Ml SUB-Q 4 units HS WARD Administration Protocol Insulin Glargine 8 units 06/28/24 21:00 07/04/24 21:20 Insulin Glargine (*Bkc) 100 Units/Ml SUB-Q 8 units HS [facility] Administration Isosorbide Mononitrate 15 mg 07/03/24 09:00 07/05/24 08:56 Isosorbide Mononitrate 15 Mg Tab.Er.24h PO 15 mg BID@0900,1600 [facility] Administration Metolazone 5 mg 07/05/24 11:55 07/05/24 12:36 Metolazone 5 Mg Tablet PO Not Given QAM WARD Metoprolol Succinate 25 mg 06/26/24 09:00 07/05/24 08:57 Metoprolol Succinate Ext Rel 25 Mg Tabcr PO 25 mg QAM [facility] Administration Ondansetron HCl 4 mg 06/25/24 23:05 Ondansetron Inj 4 Mg/2 Ml Vial IV PUSH Q6H PRN Nausea And Vomiting Pantoprazole Sodium 40 mg 06/26/24 09:00 07/05/24 08:57 Pantoprazole 40 Mg Tablet PO 40 mg QAM [facility] Administration Polyethylene Glycol 17 gm 07/04/24 09:00 07/05/24 08:57 Polyethylene Glycol 3350 17 Gm Powd.Pack PO 17 gm QAM [facility] Administration Pregabalin 25 mg 06/26/24 21:00 07/04/24 21:36 Pregabalin (*Crx) 25 Mg Capsule PO Not Given [facility] Fluticasone/Salmeterol 2 puff 07/02/24 20:00 07/05/24 08:16 Fluticasone/Salmeterol 115-21 Mcg Inhaler 1 Puff INHALATION 2 puff Q12HRT [facility] Administration Sodium Zirconium Cyclosilicate 10 gm 07/02/24 16:50 07/05/24 14:27 Sodium Zirconium Cyclosilicate 10 Gm Powd.Pack PO Not Given TID@1000,1500,2200 [facility] Tamsulosin HCl 0.4 mg 06/25/24 23:10 07/04/24 21:21 Tamsulosin Hcl 0.4 Mg Capsule PO 0.4 mg QHS [facility] Administration Vitamin D 1,000 units 06/26/24 09:00 07/05/24 08:56 Cholecalciferol 1,000 Units Tablet PO 1,000 units DAILY WARD Administration Wound Care/Dressing Products 1 patch 07/06/24 09:00 Hydrocolloid Dressing (Aquacel) Patch TOPICAL DAILY WARD Radiology Results: ITS Impressions Head CT 06/24/24 18:31 IMPRESSION: Hypodensity in the left posterior temporal/occipital area which is suggestive of acute/subacute infarct with multiple hyperdensities which may be hemorrhagic areas. Calcification is less likely. MRI evaluation is advised. Physician: Manav Duarte MD Was notified with the result of the patient at time 6:45 PM on June 24, 2024. Head/Neck CTA 06/24/24 19:43 IMPRESSION: 1. Nonvisualization of the distal left posterior cerebral artery. Otherwise normal CTA of the head. 2. CTA of the neck. Shows severe calcification of the carotid arteries. Percent stenosis per NASCET criteria is 60% on the right side. 3. Bilateral pleural effusion with adjacent atelectasis versus pneumonia. Venous Doppler Study 06/26/24 12:46 IMPRESSION: 1. No deep venous thrombosis. Pulmonary Perfusion Imaging 06/26/24 13:58 IMPRESSION: 1. No immediate probability for pulmonary embolism. ADDENDUM: 07/02/24 1044 CORRECTION: There is a dictation error in the impression section. With the correction capitalized this should read- 1. INTERMEDIATE probability for pulmonary embolism. This correction was discussed with Dior Ugarte, the nurse caring for the patient, at 10:40 AM. Chest X-Ray 07/03/24 11:30 Impression: Small bilateral pleural effusions with mild bibasilar pulmonary edema/atelectasis. Stable cardiomegaly, status post CABG and aortic valve replacement, with pacemaker device. Renal Ultrasound 07/03/24 20:41 IMPRESSION: No hydronephrosis or renal calculi. Findings suggesting medical renal disease. Labs Labs: Laboratory Results - last 24 hr 07/04/24 07/04/24 07/04/24 04:10 16:23 20:55 WBC RBC Hgb Hct MCV MCH MCHC RDW Plt Count MPV Immature Gran % (Auto) Neut % (Auto) Lymph % (Auto) [place] % (Auto) Eos % (Auto) Baso % (Auto) Lymph # (Auto) [place] # (Auto) Eos # (Auto) Baso # (Auto) Abs Immat Gran (auto) Absolute Neuts (auto) Absolute Nucleated RBC Nucleated RBC % Sodium Potassium Chloride Carbon Dioxide Anion Gap BUN Creatinine Estim Creat Clear Calc Estimated GFR Glucose POC Capillary Glucose 383 H 380 H Calcium Phosphorus Magnesium Total Bilirubin AST ALT Alkaline Phosphatase Total Protein Albumin Hep B Core Total Ab Non-reactive 07/05/24 07/05/24 07/05/24 04:32 07:23 11:39 WBC 5.2 RBC 2.56 L Hgb 7.8 L Hct 26.1 L MCV 102.0 H MCH 30.5 MCHC 29.9 L RDW 15.9 H Plt Count 111 L MPV 10.3 Immature Gran % (Auto) 0.6 H Neut % (Auto) 90.1 H Lymph % (Auto) 2.9 L [place] % (Auto) 6.4 Eos % (Auto) 0.0 Baso % (Auto) 0.0 L Lymph # (Auto) 0.15 L [place] # (Auto) 0.3 Eos # (Auto) 0.0 Baso # (Auto) 0.0 Abs Immat Gran (auto) 0.03 Absolute Neuts (auto) 4.6 Absolute Nucleated RBC 0.000 Nucleated RBC % 0.0 Sodium 129 L Potassium 5.2 H Chloride 88 L Carbon Dioxide 31 H Anion Gap 10 BUN 128 H Creatinine 2.68 H Estim Creat Clear Calc 22 Estimated GFR 23 L Glucose 344 H POC Capillary Glucose 349 H 377 H Calcium 7.7 L Phosphorus 4.6 H Magnesium 2.8 H Total Bilirubin 0.5 AST 18 ALT 16 Alkaline Phosphatase 68 Total Protein 6.0 L Albumin 3.3 L Hep B Core Total Ab Quality VTE Prophylaxis VTE prophylaxis: mechanical ordered
[2024-07-05 16:01] LABS: Glucose Point of Care 272 mg/dl (65-105)
--- NOTE | 2024-07-05 16:27 | P.PNPL_ITS ---
Progress Note: A&P Assessment and Plan (1) Acute and chronic respiratory failure with hypercapnia: Code(s): J96.22 - Acute and chronic respiratory failure with hypercapnia Status: Acute Assessment and Plan: 07/04/24 He is better compensated now compared to admission; Last ABG showed compensated pH, lowest pCO2 in the system, adequate pO2. 7.35/51/85 on BiPAP /, 25% and rate 16. He has the intersection of and stage systolic CHF leading to worsening renal perfusion, worsening acute on chronic kidney failure; lungs are not normal at baseline, has used O2 for years, now with inability to compensate. This will only get worse. 07/05/24 He is not improving due to warsening cardiorenal syndrome; PAP can only do so much. He is only requiring 28%, however he is failing therapy as his body shuts down. (2) COPD (chronic obstructive pulmonary disease): Code(s): J44.9 - Chronic obstructive pulmonary disease, unspecified Status: Chronic Assessment and Plan: Has dx of COPD, has been on O2 7-8 years, uses nebulizer at home with albuterol, and his controller inhaler he says is Breztri. Smoked 2 ppd x 20 years, quit decades ago. This is not his main problem. Plan plan: 1) ABG tomorrow am after night on AVAPS. He is having progressive multiorgan deterioration due to systolic heart failure and worsening acute on chronic renal failure, driving up pCO2. 2) plans noted for modified barium swallow; he is weak, pre-terminal. Consider thickener for liquids, see how he responds. He is so sick that taking away food and drink seems inhumane. said that she knows that he is failing, and has called her son to come from [place] Saturday. She is ok with cancelling, and Dr Glasgow approves of cancelling MBS. 3) Airway clearance; he has little sputum. He can continue to try to use Cornet valve to help with any secretions he has. He does not have pneumonia; has a chronic cough with daily clear sputum. He looks like he is close to . tells me that her son is flying in tomorrow from [place], she wants to hold off on withdrawing any treatment until he arrives. I will cancel the swallow study. Subjective Date/time seen: 07/05/24 16:27 Interval history: 07/04/2024, new consult; Jessica Wallace is an 84-year-old man with CHF, CAD s/p CABG, stent, ppm with probable ICD, COPD, O2 use for 7-8 years, chronic kidney disease, DM type 2, anemia, AFUA, Agent Diagonal exposure, 100% disability. He has diagnosis of AFUA, had a CPAP for a few years, did not want to use it until the last few months when his breathing worsened, started regular use 3 months ago. Has a hard time keeping it on at night, sleeps more than he is awake, worsening exercise tolerance, increased leg swelling. [facility] breath, sounds like CHF + acute and chronic respiratory failure, and acute and chronic kidney disease. [facility] at the end of that admission. He was admitted here at [facility] June 09 through admission with hypercapnic respiratory failure, decompensated systolic CHF, acute and chronic renal failure; he was having shortness of breath and LE swelling for several months. He went to a [facility] facility, became less responsive, returned on June 24 with altered mentation, had a UTI and an acute ischemic stroke; head CT showed left posterior temporal occipital ischemia with areas of hemorrhage. He had elevated pCO2 both admissions; this admission June 24 as placed on BiPAP in the ED, I/E = 12/ with rate 20, 1 L/min O2. He had been on BiPAP most of this admission, improved pCO2. He has worsening acute on chronic renal failure, initial BUN was 102, creat was 2.19, with worsening failure, BUN 122, creat 2.76. He has systolic CHF, diabetes is out of control with glucose running in the 300s aggravated by solumedrol IV push Q 6 hours. He is receiving this for COPD. Nephrology has talked with him about dialysis, which he does not want because he watched his 34 year-old daughter have HD for a month before dying of scleroderma. His sister also had dialysis, he does not want that path. He has been on CPAP a few years, did not wear his device regularly until 3 months ago when he started having worsening CHF. His machine was adjusted after this Fe admission at the [facility]. He coughs daily, minimal sputum which is clear, uses albuterol at home and an inhaler, thinks that it is Breztri. 07/05/2024: Dr Ruiz changed his Lasix to Bumex 2 mg bid and metolazone. He had a bedside swallow today which was abnoraml, and now he is NPO for modified barium swallow tomorrow. He coughs with liquids, according to his RN who noticed this last weekend and today. Yesterday, I changed his BiPAP to AVAPS, he tolerated this well. He is on 2 L/min, sat is 98%. came to his room, we discussed his situation. He is not making enough urine, BUN and creat are rising. DATA * 07/03/24 CXR; Impression: Small bilateral pleural effusions with mild bibasilar pulmonary edema/atelectasis. Stable cardiomegaly, status post CABG and aortic valve replacement, with pacemaker device. * ABGs ; he had acute hypercapnia during last admission June 09; his serum bicarbonate is low. He now has acute and chronic hypercapnia, serum bicarbonate is 27 to 32. document embedded image Review of Systems Review of Systems: All systems reviewed & are unremarkable except as noted in HPI and below Exam Narrative: GEN: Lethargic; not alert as he was yesterday. He has a new PAP mask for his AVAPS settings. Chronically ill. Lying in bed with head elevated up; he has faint wheezes audible from upper airway. HEENT: Left pupil responds to light, right eye opacified, blindness; symmetrical face; oral membranes dry NECK: Trachea is midline. No palpable lymphadenopathy. CHEST: Decreased breath sounds in right lung base; he is leaning towards right side; decreased breath sounds with basilar crackles. CV: Regular S1S2 no m/g/r ABD : (+) bowel sounds, distended abdomen Extremities : no clubbing; his hands are warm, he has no cyanosis; scattered ecchymoses over dorsum of hands; 4+ edema both legs and hands. PSYCH: drowsy, responds to loud voice. Objective Data Vital Signs Vital Signs: Vital Signs - 24 hr 07/04/24 18:00 07/04/24 19:57 07/04/24 19:58 Temperature Pulse Rate 60 60 60 Respiratory Rate 23 H 23 H Blood Pressure Pulse Oximetry 98 Oxygen Delivery BiPAP Oxygen Flow Rate Fraction of Inspired Oxygen 07/04/24 20:00 07/04/24 20:00 07/04/24 20:00 Temperature 36.8 C Pulse Rate 60 60 Respiratory Rate 19 Blood Pressure 104/40 L Pulse Oximetry 98 98 Oxygen Delivery BiPAP Oxygen Flow Rate Fraction of Inspired Oxygen 28 07/04/24 22:00 07/05/24 00:00 07/05/24 00:00 Temperature 36.8 C Pulse Rate 60 60 82 Respiratory Rate 18 Blood Pressure 97/45 L Pulse Oximetry 100 Oxygen Delivery Oxygen Flow Rate Fraction of Inspired Oxygen 07/05/24 00:00 07/05/24 00:25 07/05/24 02:00 Temperature Pulse Rate 61 72 Respiratory Rate 24 H Blood Pressure Pulse Oximetry 98 97 Oxygen Delivery BiPAP BiPAP Oxygen Flow Rate Fraction of Inspired Oxygen 28 07/05/24 04:00 07/05/24 04:00 07/05/24 04:00 Temperature 36.6 C Pulse Rate 60 62 Respiratory Rate 19 Blood Pressure 95/38 L Pulse Oximetry 100 96 Oxygen Delivery Nasal Cannula Oxygen Flow Rate 2 Fraction of Inspired Oxygen 07/05/24 04:47 07/05/24 06:00 07/05/24 07:43 Temperature Pulse Rate 63 60 60 Respiratory Rate 22 H 17 Blood Pressure Pulse Oximetry 97 Oxygen Delivery BiPAP Oxygen Flow Rate Fraction of Inspired Oxygen 07/05/24 07:45 07/05/24 08:00 07/05/24 08:00 Temperature 36.0 C L Pulse Rate 60 62 Respiratory Rate 17 20 Blood Pressure 102/42 L Pulse Oximetry 96 100 98 Oxygen Delivery BiPAP Autopap Oxygen Flow Rate Fraction of Inspired Oxygen 07/05/24 08:12 07/05/24 08:13 07/05/24 08:57 Temperature Pulse Rate 67 60 Respiratory Rate 20 Blood Pressure Pulse Oximetry 98 Oxygen Delivery Nasal Cannula Oxygen Flow Rate 2 Fraction of Inspired Oxygen 07/05/24 12:00 07/05/24 12:00 07/05/24 12:32 Temperature 36.3 C L Pulse Rate 61 60 Respiratory Rate 24 H 20 Blood Pressure 90/44 L Pulse Oximetry 100 100 Oxygen Delivery Autopap Oxygen Flow Rate Fraction of Inspired Oxygen 07/05/24 12:43 07/05/24 16:02 07/05/24 16:02 Temperature Pulse Rate 60 93 93 Respiratory Rate 20 25 H 20 Blood Pressure Pulse Oximetry 98 Oxygen Delivery BiPAP Oxygen Flow Rate Fraction of Inspired Oxygen 07/05/24 16:16 Temperature Pulse Rate 91 Respiratory Rate 20 Blood Pressure Pulse Oximetry Oxygen Delivery Oxygen Flow Rate Fraction of Inspired Oxygen Intake/Output Intake/Output: Intake & Output 07/02/24 07/03/24 07/04/24 07/05/24 23:59 23:59 23:59 23:59 Intake Total 482 237 6820 440 Output Total 650 650 950 400 Balance 50 -170 570 40 Meds/Results Medications: Active Medications Generic Name Dose Route Start Last Admin Trade Name Freq PRN Reason Stop Dose Admin Acetaminophen 650 mg 06/25/24 23:05 07/03/24 17:50 Acetaminophen 325 Mg Tablet PO 650 mg Q4H PRN Administration Mild Pain (1-3) or Fever Albuterol/Ipratropium 3 ml 07/02/24 13:50 07/05/24 15:59 Ipratropium 0.5 Mg/Albuterol Sulfate 2.5 Mg Ampul.Neb 3 Ml INHALATION 3 ml Q4HRT WARD Administration Aspirin 81 mg 07/01/24 09:00 07/05/24 08:56 Aspirin 81 Mg Enteric Tablet PO 81 mg QAM WARD Administration Atorvastatin Calcium 40 mg 06/25/24 23:10 07/04/24 21:21 Atorvastatin 40 Mg Tablet PO 40 mg HS WARD Administration Bumetanide 2 mg 07/05/24 11:55 07/05/24 12:37 Bumetanide Inj 2.5 Mg/10 Ml Vial IV PUSH Not Given BID WARD Cyanocobalamin 1,000 mcg 06/26/24 09:00 07/05/24 08:57 Cyanocobalamin 1,000 Mcg Tablet PO 1,000 mcg DAILY WARD Administration Dextrose 12.5 gm 06/26/24 04:23 Dextrose 50% 25 Gm/50 Ml Syringe IV PUSH PRN PRN Hypoglycemia Protocol Epoetin Edwin-epbx 10,000 units 07/04/24 09:00 07/04/24 10:41 Epoetin Edwin-Epbx 10,000 Units/Ml Vial SUB-Q 10,000 units TUTHSA@09 WARD Administration Ferrous Sulfate 325 mg 06/26/24 09:00 07/05/24 08:56 Ferrous Sulfate [address] PO 325 mg BID WARD Administration Finasteride 5 mg 06/26/24 09:00 07/05/24 08:56 Finasteride 5 Mg Tablet PO 5 mg DAILY WARD Administration Folic Acid 1 mg 06/26/24 09:00 07/05/24 08:56 Folic Acid 1 Mg Tablet PO 1 mg DAILY WARD Administration Glucagon 1 mg 06/26/24 04:23 Glucagon For Inj 1 Mg Vial IM PRN PRN Hypoglycemia Protocol Glucose 15 gm 06/26/24 04:23 Glucose Oral Gel 15 Gm Of Glucse In 37.5 Gm Tube PO PRN PRN Hypoglycemia Protocol Dextrose 1,000 mls @ 100 mls/hr 06/26/24 04:23 Dextrose 5% 1,000 Ml IVPB PRN PRN Hypoglycemia Protocol Sodium Chloride 1,000 mls @ 50 mls/hr 07/05/24 13:25 07/05/24 13:39 Normal Saline Iv IV CONT 50 mls/hr .Q20H WARD Administration Insulin Aspart 4 - 8 units 06/26/24 08:00 07/05/24 13:39 Insulin Aspart (*Bkc) 100 Units/Ml SUB-Q 8 units TIDWM WARD Administration Protocol Insulin Aspart 2 - 4 units 06/26/24 21:00 07/04/24 21:20 Insulin Aspart (*Bkc) 100 Units/Ml SUB-Q 4 units HS WARD Administration Protocol Insulin Glargine 8 units 06/28/24 21:00 07/04/24 21:20 Insulin Glargine (*Bkc) 100 Units/Ml SUB-Q 8 units HS WARD Administration Isosorbide Mononitrate 15 mg 07/03/24 09:00 07/05/24 08:56 Isosorbide Mononitrate 15 Mg Tab.Er.24h PO 15 mg BID@0900,1600 WARD Administration Metolazone 5 mg 07/05/24 11:55 07/05/24 12:36 Metolazone 5 Mg Tablet PO Not Given QAM WARD Metoprolol Succinate 25 mg 06/26/24 09:00 07/05/24 08:57 Metoprolol Succinate Ext Rel 25 Mg Tabcr PO 25 mg QAM WARD Administration Ondansetron HCl 4 mg 06/25/24 23:05 Ondansetron Inj 4 Mg/2 Ml Vial IV PUSH Q6H PRN Nausea And Vomiting Pantoprazole Sodium 40 mg 06/26/24 09:00 07/05/24 08:57 Pantoprazole 40 Mg Tablet PO 40 mg QAM WARD Administration Polyethylene Glycol 17 gm 07/04/24 09:00 07/05/24 08:57 Polyethylene Glycol 3350 17 Gm Powd.Pack PO 17 gm QAM WARD Administration Pregabalin 25 mg 06/26/24 21:00 07/04/24 21:36 Pregabalin (*Crx) 25 Mg Capsule PO Not Given HS WARD Fluticasone/Salmeterol 2 puff 07/02/24 20:00 07/05/24 08:16 Fluticasone/Salmeterol 115-21 Mcg Inhaler 1 Puff INHALATION 2 puff Q12HRT WARD Administration Sodium Zirconium Cyclosilicate 10 gm 07/02/24 16:50 07/05/24 14:27 Sodium Zirconium Cyclosilicate 10 Gm Powd.Pack PO Not Given TID@1000,1500,2200 WARD Tamsulosin HCl 0.4 mg 06/25/24 23:10 07/04/24 21:21 Tamsulosin Hcl 0.4 Mg Capsule PO 0.4 mg QHS WARD Administration Vitamin D 1,000 units 06/26/24 09:00 07/05/24 08:56 Cholecalciferol 1,000 Units Tablet PO 1,000 units DAILY WARD Administration Wound Care/Dressing Products 1 patch 07/06/24 09:00 Hydrocolloid Dressing (Aquacel) Patch TOPICAL DAILY [facility] Radiology Results: ITS Impressions Head CT 06/24/24 18:31 IMPRESSION: Hypodensity in the left posterior temporal/occipital area which is suggestive of acute/subacute infarct with multiple hyperdensities which may be hemorrhagic areas. Calcification is less likely. MRI evaluation is advised. Physician: Manav Duarte MD Was notified with the result of the patient at time 6:45 PM on June 24, 2024. Head/Neck CTA 06/24/24 19:43 IMPRESSION: 1. Nonvisualization of the distal left posterior cerebral artery. Otherwise normal CTA of the head. 2. CTA of the neck. Shows severe calcification of the carotid arteries. Percent stenosis per NASCET criteria is 60% on the right side. 3. Bilateral pleural effusion with adjacent atelectasis versus pneumonia. Venous Doppler Study 06/26/24 12:46 IMPRESSION: 1. No deep venous thrombosis. Pulmonary Perfusion Imaging 06/26/24 13:58 IMPRESSION: 1. No immediate probability for pulmonary embolism. ADDENDUM: 07/02/24 1044 CORRECTION: There is a dictation error in the impression section. With the correction capitalized this should read- 1. INTERMEDIATE probability for pulmonary embolism. This correction was discussed with Dior Ugarte, the nurse caring for the patient, at 10:40 AM. Chest X-Ray 07/03/24 11:30 Impression: Small bilateral pleural effusions with mild bibasilar pulmonary edema/atelectasis. Stable cardiomegaly, status post CABG and aortic valve replacement, with pacemaker device. Renal Ultrasound 07/03/24 20:41 IMPRESSION: No hydronephrosis or renal calculi. Findings suggesting medical renal disease. Labs Labs: Laboratory Results - last 24 hr 07/04/24 07/04/24 07/04/24 04:10 16:23 20:55 WBC RBC Hgb Hct MCV MCH MCHC RDW Plt Count MPV Immature Gran % (Auto) Neut % (Auto) Lymph % (Auto) [place] % (Auto) Eos % (Auto) Baso % (Auto) Lymph # (Auto) [place] # (Auto) Eos # (Auto) Baso # (Auto) Abs Immat Gran (auto) Absolute Neuts (auto) Absolute Nucleated RBC Nucleated RBC % Sodium Potassium Chloride Carbon Dioxide Anion Gap BUN Creatinine Estim Creat Clear Calc Estimated GFR Glucose POC Capillary Glucose 383 H 380 H Calcium Phosphorus Magnesium Total Bilirubin AST ALT Alkaline Phosphatase Total Protein Albumin Hep B Core Total Ab Non-reactive 07/05/24 07/05/24 07/05/24 04:32 07:23 11:39 WBC 5.2 RBC 2.56 L Hgb 7.8 L Hct 26.1 L MCV 102.0 H MCH 30.5 MCHC 29.9 L RDW 15.9 H Plt Count 111 L MPV 10.3 Immature Gran % (Auto) 0.6 H Neut % (Auto) 90.1 H Lymph % (Auto) 2.9 L [place] % (Auto) 6.4 Eos % (Auto) 0.0 Baso % (Auto) 0.0 L Lymph # (Auto) 0.15 L [place] # (Auto) 0.3 Eos # (Auto) 0.0 Baso # (Auto) 0.0 Abs Immat Gran (auto) 0.03 Absolute Neuts (auto) 4.6 Absolute Nucleated RBC 0.000 Nucleated RBC % 0.0 Sodium 129 L Potassium 5.2 H Chloride 88 L Carbon Dioxide 31 H Anion Gap 10 BUN 128 H Creatinine 2.68 H Estim Creat Clear Calc 22 Estimated GFR 23 L Glucose 344 H POC Capillary Glucose 349 H 377 H Calcium 7.7 L Phosphorus 4.6 H Magnesium 2.8 H Total Bilirubin 0.5 AST 18 ALT 16 Alkaline Phosphatase 68 Total Protein 6.0 L Albumin 3.3 L Hep B Core Total Ab 07/05/24 15:58 WBC RBC Hgb Hct MCV MCH MCHC RDW Plt Count MPV Immature Gran % (Auto) Neut % (Auto) Lymph % (Auto) [place] % (Auto) Eos % (Auto) Baso % (Auto) Lymph # (Auto) [place] # (Auto) Eos # (Auto) Baso # (Auto) Abs Immat Gran (auto) Absolute Neuts (auto) Absolute Nucleated RBC Nucleated RBC % Sodium Potassium Chloride Carbon Dioxide Anion Gap BUN Creatinine Estim Creat Clear Calc Estimated GFR Glucose POC Capillary Glucose 272 H Calcium Phosphorus Magnesium Total Bilirubin AST ALT Alkaline Phosphatase Total Protein Albumin Hep B Core Total Ab
[2024-07-05] MEDS: BUMETANIDE INJ 2.5 MG/10 ML VIAL 2 MG IV PUSH (16:58)
[2024-07-05 20:38] LABS: Glucose Point of Care 181 mg/dl (65-105)
[2024-07-06] VITALS (26 sets, daily range): BP systolic 93–110; BP diastolic 34–84; PULSE 58–84; RESP 15–28; TEMP 36.4–36.6; O2SAT 95–100
[2024-07-06] MEDS: IPRATROPIUM 0.5 MG/ALBUTEROL SULFATE 2.5 MG AMPUL.NEB 3 ML INHALATION ×6 (03:27→19:58)
[2024-07-06 04:59] LABS: Eosinophils Percent Auto 0.3 % (0-4.4); Hematocrit 28.1 % (42.0-52.0); Hemoglobin 8.3 g/dL (14.0-18.0); Immature Granulocyte Absolute 0.03 K/mm3 (0.00-0.031); Immature Granulocyte Percent A 0.5 % (0-0.5); Lymphocytes Absolute Auto 0.29 K/mm3 (0.9-3.2); Lymphocytes Percent Auto 4.9 % (18.3-44.2); Mean Corpuscular HGB Conc 29.5 g/dl (32-36); Mean Corpuscular Hemoglobin 30.5 pg (26-34); Mean Corpuscular Volume 103.3 fl (80-100); Mean Platelet Volume 10.3 fl (7.4-10.4); Monocytes Absolute Auto 0.5 K/mm3 (0.1-0.6); Monocytes Percent Auto 7.7 % (2.6-8.5); Neutrophils Absolute Auto 5.1 K/mm3 (1.3-6.7); Neutrophils Percent Auto 86.6 % (45.5-73.1); Platelet Count Result 136 k/mm3 (150-375); Red Blood Count 2.72 M/mm3 (4.6-6.20); White Blood Count 5.9 K/mm3 (4.5-10.0)
[2024-07-06 05:14] LABS: Alanine Aminotransferase 15 U/L (6-50); Albumin Level 3.3 g/dL (3.5-5.1); Alkaline Phosphatase 63 U/L (38-126); Anion Gap 8 mmol/L (4-12); Aspartate Amino Transferase 19 U/L (17-59); Bilirubin,Total 0.6 mg/dL (0.2-1.3); Calcium 7.8 mg/dL (8.4-10.2); Carbon Dioxide 32 mmol/L (22-30); Chloride 90 mmol/L (98-107); Estimated CRCL calculation 22 ml/min; Estimated Glomerular Filt Rate 23; Glucose 183 mg/dL (65-110); Phosphorus 4.7 mg/dL (2.5-4.5); Sodium 130 mmol/L (137-145)
[2024-07-06 05:44] LABS: Blood Urea Nitrogen 131 mg/dL (9-20)
[2024-07-06] MEDS: FLUTICASONE/SALMETEROL 115-21 MCG INHALER 1 PUFF 2 PUFF INHALATION (07:24)
[2024-07-06 08:20] LABS: Glucose Point of Care 195 mg/dl (65-105)
--- NOTE | 2024-07-06 09:16 | P.PNNP_ITS ---
Progress Note: A&P Assessment and Plan (1) Acute kidney injury: Code(s): N17.9 - Acute kidney failure, unspecified Status: Acute Assessment and Plan: * as noted by recent testing * suspect due to several issues: * volume overload * infection (UTI) * previous IV diuresis * outpatient diuretics prior to admission * hypoxia * relative hypotension * contrast exposure (although creatinine elevated even prior to this...) * outpatient records note baselinecreatinine seems to be around 1.8-2.3 * however, has been as high as 3.8mg/dl with acute hospitalizations and need for aggresive diuresis * suspect his admission creatinine was a dilutional value since he was severely volume overloaded at that time * no significant diuresis in spite of high dose bumex with metolazone * remaisn at risk of ROLL SCALE MAN/hemodialysis * initially he was resistant to the idea of dialysis but today he stated he would be willing to do it.... * HOWEVER, although dialysis is an option, I very much doubt it would really improve his overall respiratory status (2) Chronic kidney disease, stage IV (severe): Code(s): N18.4 - Chronic kidney disease, stage 4 (severe) Status: Chronic Assessment and Plan: * baseline creatinine runs ~ 1.8 - 2.3mg/dl [facility] * however, given his multiple admissions for volume overload/acute hypoxic respiratory failure and the need for diuresis, his creatinine has run in the 3ish range * furthermore, he tends have significant azotemia with BUNs running in the 100s+ range (presumably due to diuretics and prerenal factors) * due to hypertension, diabetes, CHF/cardiomyopathy with necessity of chronic diuretic therapy, vascular disease and age-related change * follows with Nephrology at [facility] * according to his , there have been ongoing discussions about dialysis with his palliative care team at [facility]. (3) Acute and chronic respiratory failure with hypercapnia: Code(s): J96.22 - Acute and chronic respiratory failure with hypercapnia Status: Acute Assessment and Plan: * due to combo of CHF and COPD complicated by his AFUA * on BiPAP therapy PRN * off steroids * titrating diuretics to remove fluid (but limited response noted) * Pulmonary following with recommendations noted (4) CHF (congestive heart failure): Code(s): I50.9 - Heart failure, unspecified Status: Chronic Assessment and Plan: * known history * Echo (06/10) noted: * left ventricular systolic function is mildly reduced - estimated at 40-45% * right ventricular systolic function is reduced * bioprosthetic valve appears to be well-seated. Leaflets not well visualized. Peak velocity of 2.5m/s, mean gradient of 13mmHg * no aortic valve regurgitation * mitral valve annulus is severely calcified * mitral valve has thickened leaflets * mild mitral valve regurgitation * moderate tricuspid valve regurgitation * pulmonary hypertension, estimated pulmonary arterial systolic pressure is 66 mmHg * CXR results noted * attempting to facilitate diuresis (5) COPD (chronic obstructive pulmonary disease): Code(s): J44.9 - Chronic obstructive pulmonary disease, unspecified Status: Chronic Assessment and Plan: * exacerbation suspected on admission * follow ABGs * BiPAP as needed * on nebulizers/bronchodilators therapy * Pulmonary following * continue supportive therapy (6) Acute ischemic stroke: Code(s): I63.9 - Cerebral infarction, unspecified Status: Acute Assessment and Plan: * head CT shown hypodensity in the left posterior temporal/occipital area suggestive of acute/subacute infarct with multiple hyperdensities which may be hemorrhagic areas * head/neck CTA showed severe calcification of the carotid arteries 60% on the right side, bilateral pleural effusion with adjacent atelectasis versus pneumonia * unable to do MRI brain due to pacemaker * Neurololgy following with recommendations * continue PT/OT/ST (7) Sleep apnea: Code(s): G47.30 - Sleep apnea, unspecified Status: Chronic Assessment and Plan: * known history * was not using CPAP machine before admission * BIPAP when resting during the day and at night * noted issues with CO2 retention by ABGs (8) Chronic anemia: Code(s): D64.9 - Anemia, unspecified Status: Chronic Assessment and Plan: * suspect related to CHRISTIAN, CKD, and acute illness * anemia studies also note iron deficiency * on oral iron * s/p IV venofer * dosing with Epogen while hospitalized * follow trend of H/H (9) Hypertension: Code(s): I10 - Essential (primary) hypertension Status: Chronic Assessment and Plan: * systolic 90 to 130 * follow trend of hemodynamics (10) DM2 (diabetes mellitus, type 2): Code(s): E11.9 - Type 2 diabetes mellitus without complications Status: Chronic Assessment and Plan: * follow accu-cheks * glycemic control per hospitalist Extensive discussion with and granddaughter at bedside (> 20 minutes) regarding his advanced kidney disease in conjunction with advanced CHF and COPD -- although dialysis may help improve his kidney function, I worry it will not change his underlying lung disease/problems which will likely continue to progressive get worse. Although patient states he would be willing to do dialysis, I suspect the risk and suspected lack of benefit argues against this intervention and his and granddaughter see to agree with this. Hospice referral has already been made. Will continue to follow. L Subjective Date/time seen: 07/06/24 09:16 Interval history: Follow-up for acute kidney injury/acute renal failure on chronic kidney disease. Chart reviewed since last seen -- renal function/creatinine remains about the same but BUN rising; high dose diuretics over the last few days have not resulted in any significant diuresis; remains on BiPAP therapy at the time of my visit; and granddaughter at bedside and we discussed the situation. Exam 2 Narrative: General: elderly but WD/WN male in NAD; on BiPAP Heart: normal S1 and S2; no rub Lungs: coarse breath sounds with a few crackles at baseline Abdomen: soft, nontender, nondistended, positive bowel sounds Extremities: 2+ edema bilaterally Skin: no nodules Objective Data Vital Signs Vital Signs: Vital Signs Temp Pulse Resp BP Pulse Ox O2 Del Method FiO2 07/06/24 08:00 60 96 BiPAP 28 07/06/24 08:00 97.5 F L 61 15 95/51 L 96 07/06/24 07:24 60 15 07/06/24 07:15 60 16 07/06/24 07:15 60 16 97 BiPAP 07/06/24 06:00 60 07/06/24 04:00 60 07/06/24 04:00 97 BiPAP 07/06/24 04:00 97.8 F 62 18 96/37 L 100 07/06/24 03:36 60 16 07/06/24 03:27 60 16 07/06/24 02:20 60 16 95 BiPAP 07/06/24 02:00 60 07/06/24 00:45 60 16 07/06/24 00:00 84 07/06/24 00:00 96 BiPAP 28 07/06/24 00:00 60 16 07/06/24 00:00 97.9 F 61 20 105/45 L 97 07/05/24 22:21 60 18 95 BiPAP 07/05/24 22:00 66 07/05/24 20:11 60 16 07/05/24 20:00 60 07/05/24 20:00 98 BiPAP 28 07/05/24 20:00 99 BiPAP 28 07/05/24 20:00 60 16 07/05/24 20:00 60 16 99 BiPAP 07/05/24 20:00 97.8 F 88 20 100/56 L 99 07/05/24 18:00 60 07/05/24 16:16 91 20 07/05/24 16:02 93 20 07/05/24 16:02 93 25 H 98 BiPAP 07/05/24 16:00 60 07/05/24 16:00 100 Autopap 07/05/24 16:00 97.2 F L 84 19 109/64 99 07/05/24 14:00 60 07/05/24 12:43 60 20 Intake/Output Intake/Output: Intake & Output 07/03/24 07/04/24 07/05/24 07/06/24 23:59 23:59 23:59 23:59 Intake Total 480 1520 640 991.7 Output Total 650 950 700 200 Balance -170 570 -60 791.7 Meds/Results Medications: Active Medications Generic Name Dose Route Start Last Admin Trade Name Freq PRN Reason Stop Dose Admin Acetaminophen 650 mg 06/25/24 23:05 07/03/24 17:50 Acetaminophen 325 Mg Tablet PO 650 mg Q4H PRN Administration Mild Pain (1-3) or Fever Albuterol/Ipratropium 3 ml 07/02/24 13:50 07/06/24 11:17 Ipratropium 0.5 Mg/Albuterol Sulfate 2.5 Mg Ampul.Neb 3 Ml INHALATION 3 ml Q4HRT WARD Administration Aspirin 81 mg 07/01/24 09:00 07/06/24 12:18 Aspirin 81 Mg Enteric Tablet PO Not Given QAM WARD Atorvastatin Calcium 40 mg 06/25/24 23:10 07/05/24 20:01 Atorvastatin 40 Mg Tablet PO Not Given HS WARD Bumetanide 2 mg 07/05/24 11:55 07/06/24 10:29 Bumetanide Inj 2.5 Mg/10 Ml Vial IV PUSH 2 mg BID WARD Administration Cyanocobalamin 1,000 mcg 06/26/24 09:00 07/06/24 12:18 Cyanocobalamin 1,000 Mcg Tablet PO Not Given DAILY WARD Dextrose 12.5 gm 06/26/24 04:23 Dextrose 50% 25 Gm/50 Ml Syringe IV PUSH PRN PRN Hypoglycemia Protocol Epoetin Edwin-epbx 10,000 units 07/04/24 09:00 07/04/24 10:41 Epoetin Edwin-Epbx 10,000 Units/Ml Vial SUB-Q 10,000 units TUTHSA@09 WARD Administration Ferrous Sulfate 325 mg 06/26/24 09:00 07/06/24 12:18 Ferrous Sulfate [address] PO Not Given BID WARD Finasteride 5 mg 06/26/24 09:00 07/06/24 12:18 Finasteride 5 Mg Tablet PO Not Given DAILY [facility] Folic Acid 1 mg 06/26/24 09:00 07/06/24 12:18 Folic Acid 1 Mg Tablet PO Not Given DAILY WARD Glucagon 1 mg 06/26/24 04:23 Glucagon For Inj 1 Mg Vial IM PRN PRN Hypoglycemia Protocol Glucose 15 gm 06/26/24 04:23 Glucose Oral Gel 15 Gm Of Glucse In 37.5 Gm Tube PO PRN PRN Hypoglycemia Protocol Dextrose 1,000 mls @ 100 mls/hr 06/26/24 04:23 Dextrose 5% 1,000 Ml IVPB PRN PRN Hypoglycemia Protocol Sodium Chloride 1,000 mls @ 50 mls/hr 07/05/24 13:25 07/06/24 09:29 Normal Saline Iv IV CONT 50 mls/hr .Q20H WARD Administration Insulin Aspart 4 - 8 units 06/26/24 08:00 07/06/24 08:35 Insulin Aspart (*Bkc) 100 Units/Ml SUB-Q Not Given TIDWM [facility] Protocol Insulin Aspart 2 - 4 units 06/26/24 21:00 07/05/24 20:39 Insulin Aspart (*Bkc) 100 Units/Ml SUB-Q Not Given HS [facility] Protocol Insulin Glargine 8 units 06/28/24 21:00 07/05/24 20:39 Insulin Glargine (*Bkc) 100 Units/Ml SUB-Q Not Given HS [facility] Isosorbide Mononitrate 15 mg 07/03/24 09:00 07/06/24 12:19 Isosorbide Mononitrate 15 Mg Tab.Er.24h PO Not Given BID@0900,1600 WARD Metolazone 5 mg 07/05/24 11:55 07/06/24 12:19 Metolazone 5 Mg Tablet PO Not Given QAM [facility] Metoprolol Succinate 25 mg 06/26/24 09:00 07/06/24 12:19 Metoprolol Succinate Ext Rel 25 Mg Tabcr PO Not Given QAM [facility] Ondansetron HCl 4 mg 06/25/24 23:05 Ondansetron Inj 4 Mg/2 Ml Vial IV PUSH Q6H PRN Nausea And Vomiting Pantoprazole Sodium 40 mg 06/26/24 09:00 07/06/24 12:19 Pantoprazole 40 Mg Tablet PO Not Given QAM [facility] Polyethylene Glycol 17 gm 07/04/24 09:00 07/06/24 12:19 Polyethylene Glycol 3350 17 Gm Powd.Pack PO Not Given QAM [facility] Pregabalin 25 mg 06/26/24 21:00 07/05/24 20:01 Pregabalin (*Crx) 25 Mg Capsule PO Not Given HS [facility] Sodium Zirconium Cyclosilicate 10 gm 07/02/24 16:50 07/06/24 12:19 Sodium Zirconium Cyclosilicate 10 Gm Powd.Pack PO Not Given TID@1000,1500,2200 [facility] Tamsulosin HCl 0.4 mg 06/25/24 23:10 07/05/24 20:01 Tamsulosin Hcl 0.4 Mg Capsule PO Not Given QHS [facility] Vitamin D 1,000 units 06/26/24 09:00 07/06/24 12:18 Cholecalciferol 1,000 Units Tablet PO Not Given DAILY [facility] Wound Care/Dressing Products 1 patch 07/06/24 09:00 07/06/24 12:19 Hydrocolloid Dressing (Aquacel) Patch TOPICAL Not Given DAILY [facility] Radiology Results: ITS Impressions Head CT 06/24/24 18:31 IMPRESSION: Hypodensity in the left posterior temporal/occipital area which is suggestive of acute/subacute infarct with multiple hyperdensities which may be hemorrhagic areas. Calcification is less likely. MRI evaluation is advised. Physician: Manav Duarte MD Was notified with the result of the patient at time 6:45 PM on June 24, 2024. Head/Neck CTA 06/24/24 19:43 IMPRESSION: 1. Nonvisualization of the distal left posterior cerebral artery. Otherwise normal CTA of the head. 2. CTA of the neck. Shows severe calcification of the carotid arteries. Percent stenosis per NASCET criteria is 60% on the right side. 3. Bilateral pleural effusion with adjacent atelectasis versus pneumonia. Venous Doppler Study 06/26/24 12:46 IMPRESSION: 1. No deep venous thrombosis. Pulmonary Perfusion Imaging 06/26/24 13:58 IMPRESSION: 1. No immediate probability for pulmonary embolism. ADDENDUM: 07/02/24 1044 CORRECTION: There is a dictation error in the impression section. With the correction capitalized this should read- 1. INTERMEDIATE probability for pulmonary embolism. This correction was discussed with Dior Ugarte, the nurse caring for the patient, at 10:40 AM. Chest X-Ray 07/03/24 11:30 Impression: Small bilateral pleural effusions with mild bibasilar pulmonary edema/atelectasis. Stable cardiomegaly, status post CABG and aortic valve replacement, with pacemaker device. Renal Ultrasound 07/03/24 20:41 IMPRESSION: No hydronephrosis or renal calculi. Findings suggesting medical renal disease. Labs Labs: Laboratory Tests 07/06/24 04:22 07/06/24 04:22 Calcium 7.8 L Phosphorus 4.7 H Total Bilirubin 0.6 AST 19 ALT 15 Alkaline Phosphatase 63 Total Protein 6.0 L Albumin 3.3 L
[2024-07-06] MEDS: SODIUM CHLORIDE 0.9% IV 1,000 ML 50 ML IV CONT (09:29)
--- NOTE | 2024-07-06 10:00 | PC.NURSE ---
PT SOB, requesting to be placed dago on mask. Unable to take pills. Notified Dr Jamison. OK to non-admin PO medications
[2024-07-06] MEDS: BUMETANIDE INJ 2.5 MG/10 ML VIAL 2 MG IV PUSH ×2 (10:29→16:49)
--- NOTE | 2024-07-06 10:30 | PCOTNOTE ---
The patient treatment was not able to be completed. Patient is on Bipap and having difficulty keeping his mask on at this time. RN present and is assisting. Will plan to continue treatment per plan of care.
--- NOTE | 2024-07-06 11:21 | PCDIET ---
MBS canceled, diet resumed 2gm NA/DBCC, intake minimal at this time due to respiratory needs. Pt and family considering hospice care. Will follow up as needed.
--- NOTE | 2024-07-06 11:44 | P.PNPL_ITS ---
Progress Note: A&P Assessment and Plan (1) Acute and chronic respiratory failure with hypercapnia: Code(s): J96.22 - Acute and chronic respiratory failure with hypercapnia Status: Acute Assessment and Plan: 07/04/24 He is better compensated now compared to admission; Last ABG showed compensated pH, lowest pCO2 in the system, adequate pO2. 7.35/51/85 on BiPAP 12/6, 25% and rate 16. He has the intersection of and stage systolic CHF leading to worsening renal perfusion, worsening acute on chronic kidney failure; lungs are not normal at baseline, has used O2 for years, now with inability to compe nsate. This will only get worse. 07/05/24 He is not improving due to worsening cardiorenal syndrome; PAP can only do so much. He is only requiring 28%, however he is failing therapy as his body shuts down. plan: 1) ABG tomorrow am after night on AVAPS. He is having progressive multiorgan deterioration due to systolic heart failure and worsening acute on chronic renal failure, driving up pCO2. 2) plans noted for modified barium swallow; he is weak, pre-terminal. Consider thickener for liquids, see how he responds. He is so sick that taking away food and drink seems inhumane. said that she knows that he is failing, and has called her son to come from [place] Saturday. She is ok with cancelling, and Dr Glasgow approves of cancelling MBS. He looks like he is close to . tells me that her son is flying in tomorrow from [place], she wants to hold off on withdrawing any treatment until he arrives. I will cancel the swallow study. 07/06/24: patient was on continuous noninvasive ventilation with the AVAPS mode and 28% FiO2 since 4:00 p.m. yesterday. He was taken off at 9:35 a.m. this morning and placed on 2 L nasal cannula with saturations 100%. Patient is in bed, he is awake and conversant. He is in mild respiratory distress. States he has some shortness of breath. he is afebrile. White blood cell count 5.9, creatinine 2.64, BUN 131. and granddaughter in the room and they tell me they are waiting for the son to arrive from [place] later tonight. They requested hospice consultation to gather information. cumulative patient is +3.4 L since admission. His weight is 102.4 with an admission weight of 95.7. last BNP was greater than 30,000 on 06/25/2024. Currently patient is on noninvasive ventilation with the AVAPS mode and rate of 14, tidal volume 500, EPAP 10, minimal inspiratory pressure 12, maximal inspiratory pressure 25, inspiratory time 1.0, rise of 3. I placed the patient on his fullface mask with these settings in an attempt to adjust for comfort. I increased the rise to 5 and he preferred to rise of 3. I decreased the rise to 1 and he preferred to rise of 3. He preferred inspiratory time 1.0 for comfort. Plan: Patient with congestive heart failure, acute on chronic kidney injury, fluid overload with anasarca, pleural effusions and pulmonary edema. Agree with as aggressive diuresis as tolerated by his cardiac and renal systems. Currently the patient is on metolazone 5 mg q.a.m., Bumex 2 mg IV push b.i.d. per Nephrology and hospitalist teams. Will continue current noninvasive ventilation with the AVAPS mode and 28% FiO2 p.r.n. during the day and at night. Discussed with and granddaughter in the room. Discussed with Dr. Jamison, will follow with you (2) COPD (chronic obstructive pulmonary disease): Code(s): J44.9 - Chronic obstructive pulmonary disease, unspecified Status: Chronic Assessment and Plan: 07/05/24: Has dx of COPD made by [facility]. Smoked 2 ppd x 20 years, quit decades ago. Patient had PFTs [facility] approximately 3 years ago and I do not have these results. he has been on inhalers since then. He has been on O2 for 7-8 years, uses nebulizer at home with albuterol, and his controller inhaler he says is Breztri. This is not his main problem. Plan: Airway clearance; he has little sputum. He can continue to try to use Cornet valve to help with any secretions he has. He does not have pneumonia; has a chronic cough with daily clear sputum. 07/06/24: Patient has no wheezing, no evidence of COPD exacerbation, bacterial infection or bronchitis. Plan: Continue DuoNebs Q 4 hours. This provides adequate beta agonist and muscarinic antagonists and will discontinue his Advair. Subjective Date/time seen: 07/06/24 11:44 Interval history: 07/04/2024, new consult; Jessica Wallace is an 84-year-old man with CHF, CAD s/p CABG, stent, ppm with probable ICD, COPD, O2 use for 7-8 years, chronic kidney disease, DM type 2, anemia, AFUA, [place] exposure, 100% disability. He has diagnosis of AFUA, had a CPAP for a few years, did not want to use it until the last few months when his breathing worsened, started regular use 3 months ago. Has a hard time keeping it on at night, sleeps more than he is awake, worsening exercise tolerance, increased leg swelling. [facility], sounds like CHF + acute and chronic respiratory failure, and acute and chronic kidney disease. [facility] at the end of that admission. He was admitted here at [facility] June 09 through admission with hypercapnic respiratory failure, decompensated systolic CHF, acute and chronic renal failure; he was having shortness of breath and LE swelling for several months. He went to a custodial facility, became less responsive, returned on June 24 with altered mentation, had a UTI and an acute ischemic stroke; head CT showed left posterior temporal occipital ischemia with areas of hemorrhage. He had elevated pCO2 both admissions; this admission June 24 as placed on BiPAP in the ED, I/E = 12/ with rate 20, 1 L/min O2. He had been on BiPAP most of this admission, improved pCO2. He has worsening acute on chronic renal failure, initial BUN was 102, creat was 2.19, with worsening failure, BUN 122, creat 2.76. He has systolic CHF, diabetes is out of control with glucose running in the 300s aggravated by solumedrol IV push Q 6 hours. He is receiving this for COPD. Nephrology has talked with him about dialysis, which he does not want because he watched his 34 year-old daughter have HD for a month before dying of scleroderma. His sister also had dialysis, he does not want that path. He has been on CPAP a few years, did not wear his device regularly until 3 months ago when he started having worsening CHF. His machine was adjusted after this [facility]. He coughs daily, minimal sputum which is clear, uses albuterol at home and an inhaler, thinks that it is Breztri. 07/05/2024: Dr Ruiz changed his Lasix to Bumex 2 mg bid and metolazone. He had a bedside swallow today which was abnoraml, and now he is NPO for modified barium swallow tomorrow. He coughs with liquids, according to his RN who noticed this last weekend and today. Yesterday, I changed his BiPAP to AVAPS, he tolerated this well. He is on 2 L/min, sat is 98%. came to his room, we discussed his situation. He is not making enough urine, BUN and creat are rising. 07/06/24: patient was on continuous noninvasive ventilation with the AVAPS mode and 28% FiO2 since 4:00 p.m. yesterday. He was taken off at 9:35 a.m. this mo rning and placed on 2 L nasal cannula with saturations 100%. Patient is in bed, he is awake and conversant. He is in mild respiratory distress. States he has some shortness of breath. he is afebrile. White blood cell count 5.9, creatinine 2.64, BUN 131. and granddaughter in the room and they tell me they are waiting for the son to arrive from [place] later tonight. They requested hospice consultation to gather information. Currently patient is on noninvasive ventilation with the AVAPS mode and rate of 14, tidal volume 500, EPAP 10, minimal inspiratory pressure 12, maximal inspiratory pressure 25, inspiratory time 1.0, rise of 3. I placed the patient on his fullface mask with these settings in an attempt to adjust for comfort. I increased the rise to 5 and he preferred to rise of 3. I decreased the rise to 1 and he preferred to rise of 3. He preferred inspiratory time 1.0 for comfort. DATA * 07/03/24 CXR; Impression: Small bilateral pleural effusions with mild bibasilar pulmonary edema/atelectasis. Stable cardiomegaly, status post CABG and aortic valve replacement, with pacemaker device. * ABGs ; he had acute hypercapnia during last admission June 09; his serum bicarbonate is low. He now has acute and chronic hypercapnia, serum bicarbonate is 27 to 32. document embedded image Review of Systems Constitutional: Constitutional: Reports no additional constitutional complaints Eyes: Eyes: Reports no additional eye complaints ENT: Reports system reviewed and no additional complaints, except as documented Cardiovascular: Cardiovascular: Reports no additional cardiovascular complaints Respiratory: Respiratory: Reports no additional respiratory complaints Gastrointestinal: Gastrointestinal: Reports no additional gastrointestinal complaints Musculoskeletal: Musculoskeletal: Reports no additional musculoskeletal complaints Neurologic: Reports system reviewed and no additional complaints, except as documented Psychiatric: Psychiatric: Reports no additional psychiatric complaints Endocrine: Endocrine: Reports no additional endocrine complaints Hematologic/Lymphatic: Hematologic/Lymphatic: Reports no additional hematologic/lymphatic complaints Allergic/Immunologic: Allergic/Immunologic: Reports no additional allergic/immunologic complaints Exam Const: General: cooperative, healthy appearing and in distress Other: Mild respiratory distress off of noninvasive ventilation HENMT: Head: normal to inspection Ears: hearing grossly normal bilaterally Eyes: General: appearance normal, both eyes and all related structures Neck: Neck: normal visual inspection Chest: Chest palpation & inspection: normal inspection of the chest Resp: Effort & Inspection: normal respiratory effort and able to speak in complete sentences Auscultation: crackles, no rales, no rhonchi, no wheezes and diminished lung sounds Other: bases Cardio: Jugular venous distension: no JVD GI: Inspection: normal to inspection GI Palp: No abdominal tenderness Skin: General skin exam: normal color Neuro: General: oriented to person, oriented to place and oriented to time Extrem: General: normal to inspection and edema Other: anasarca Psych: Appearance: grossly normal Objective Data Vital Signs Vital Signs: Vital Signs - 24 hr 07/05/24 12:00 07/05/24 12:00 07/05/24 12:00 Temperature 36.3 C L Pulse Rate 61 60 Respiratory Rate 24 H Blood Pressure 90/44 L Pulse Oximetry 100 100 Oxygen Delivery Autopap Fraction of Inspired Oxygen 07/05/24 12:32 07/05/24 12:43 07/05/24 14:00 Temperature Pulse Rate 60 60 60 Respiratory Rate 20 20 Blood Pressure Pulse Oximetry Oxygen Delivery Fraction of Inspired Oxygen 07/05/24 16:00 07/05/24 16:00 07/05/24 16:00 Temperature 36.2 C L Pulse Rate 84 60 Respiratory Rate 19 Blood Pressure 109/64 Pulse Oximetry 99 100 Oxygen Delivery Autopap Fraction of Inspired Oxygen 07/05/24 16:02 07/05/24 16:02 07/05/24 16:16 Temperature Pulse Rate 93 93 91 Respiratory Rate 25 H 20 20 Blood Pressure Pulse Oximetry 98 Oxygen Delivery BiPAP Fraction of Inspired Oxygen 07/05/24 18:00 07/05/24 20:00 07/05/24 20:00 Temperature 36.6 C Pulse Rate 60 88 60 Respiratory Rate 20 16 Blood Pressure 100/56 L Pulse Oximetry 99 99 Oxygen Delivery BiPAP Fraction of Inspired Oxygen 07/05/24 20:00 07/05/24 20:00 07/05/24 20:00 Temperature Pulse Rate 60 Respiratory Rate 16 Blood Pressure Pulse Oximetry 99 98 Oxygen Delivery BiPAP BiPAP Fraction of Inspired Oxygen 28 07/05/24 20:00 07/05/24 20:11 07/05/24 22:00 Temperature Pulse Rate 60 60 66 Respiratory Rate 16 Blood Pressure Pulse Oximetry Oxygen Delivery Fraction of Inspired Oxygen 07/05/24 22:21 07/06/24 00:00 07/06/24 00:00 Temperature 36.6 C Pulse Rate 60 61 60 Respiratory Rate 18 20 16 Blood Pressure 105/45 L Pulse Oximetry 95 97 Oxygen Delivery BiPAP Fraction of Inspired Oxygen 07/06/24 00:00 07/06/24 00:00 07/06/24 00:45 Temperature Pulse Rate 84 60 Respiratory Rate 16 Blood Pressure Pulse Oximetry 96 Oxygen Delivery BiPAP Fraction of Inspired Oxygen 07/06/24 02:00 07/06/24 02:20 07/06/24 03:27 Temperature Pulse Rate 60 60 60 Respiratory Rate 16 16 Blood Pressure Pulse Oximetry 95 Oxygen Delivery BiPAP Fraction of Inspired Oxygen 07/06/24 03:36 07/06/24 04:00 07/06/24 04:00 Temperature 36.6 C Pulse Rate 60 62 Respiratory Rate 16 18 Blood Pressure 96/37 L Pulse Oximetry 100 97 Oxygen Delivery BiPAP Fraction of Inspired Oxygen 28 07/06/24 04:00 07/06/24 06:00 07/06/24 07:15 Temperature Pulse Rate 60 60 60 Respiratory Rate 16 Blood Pressure Pulse Oximetry 97 Oxygen Delivery BiPAP Fraction of Inspired Oxygen 07/06/24 07:15 07/06/24 07:24 07/06/24 08:00 Temperature 36.4 C L Pulse Rate 60 60 61 Respiratory Rate 16 15 15 Blood Pressure 95/51 L Pulse Oximetry 96 Oxygen Delivery Fraction of Inspired Oxygen 07/06/24 11:17 07/06/24 11:17 07/06/24 11:24 Temperature Pulse Rate 60 60 60 Respiratory Rate 22 H 22 H 20 Blood Pressure Pulse Oximetry 98 Oxygen Delivery BiPAP Fraction of Inspired Oxygen Intake/Output Intake/Output: Intake & Output 07/03/24 07/04/24 07/05/24 07/06/24 23:59 23:59 23:59 23:59 Intake Total 480 1520 640 991.7 Output Total 650 950 700 200 Balance -170 570 -60 791.7 Meds/Results Medications: Active Medications Generic Name Dose Route Start Last Admin Trade Name Freq PRN Reason Stop Dose Admin Acetaminophen 650 mg 06/25/24 23:05 07/03/24 17:50 Acetaminophen 325 Mg Tablet PO 650 mg Q4H PRN Administration Mild Pain (1-3) or Fever Albuterol/Ipratropium 3 ml 07/02/24 13:50 07/06/24 11:17 Ipratropium 0.5 Mg/Albuterol Sulfate 2.5 Mg Ampul.Neb 3 Ml INHALATION 3 ml Q4HRT WARD Administration Aspirin 81 mg 07/01/24 09:00 07/05/24 08:56 Aspirin 81 Mg Enteric Tablet PO 81 mg QAM WARD Administration Atorvastatin Calcium 40 mg 06/25/24 23:10 07/05/24 20:01 Atorvastatin 40 Mg Tablet PO Not Given HS WARD Bumetanide 2 mg 07/05/24 11:55 07/06/24 10:29 Bumetanide Inj 2.5 Mg/10 Ml Vial IV PUSH 2 mg BID WARD Administration Cyanocobalamin 1,000 mcg 06/26/24 09:00 07/05/24 08:57 Cyanocobalamin 1,000 Mcg Tablet PO 1,000 mcg DAILY WARD Administration Dextrose 12.5 gm 06/26/24 04:23 Dextrose 50% 25 Gm/50 Ml Syringe IV PUSH PRN PRN Hypoglycemia Protocol Epoetin Edwin-epbx 10,000 units 07/04/24 09:00 07/04/24 10:41 Epoetin Edwin-Epbx 10,000 Units/Ml Vial SUB-Q 10,000 units TUTHSA@09 WARD Administration Ferrous Sulfate 325 mg 06/26/24 09:00 07/05/24 16:43 Ferrous Sulfate [address] PO Not Given BID WARD Finasteride 5 mg 06/26/24 09:00 07/05/24 08:56 Finasteride 5 Mg Tablet PO 5 mg DAILY WARD Administration Folic Acid 1 mg 06/26/24 09:00 07/05/24 08:56 Folic Acid 1 Mg Tablet PO 1 mg DAILY WARD Administration Glucagon 1 mg 06/26/24 04:23 Glucagon For Inj 1 Mg Vial IM PRN PRN Hypoglycemia Protocol Glucose 15 gm 06/26/24 04:23 Glucose Oral Gel 15 Gm Of Glucse In 37.5 Gm Tube PO PRN PRN Hypoglycemia Protocol Dextrose 1,000 mls @ 100 mls/hr 06/26/24 04:23 Dextrose 5% 1,000 Ml IVPB PRN PRN Hypoglycemia Protocol Sodium Chloride 1,000 mls @ 50 mls/hr 07/05/24 13:25 07/06/24 09:29 Normal Saline Iv IV CONT 50 mls/hr .Q20H WARD Administration Insulin Aspart 4 - 8 units 06/26/24 08:00 07/06/24 08:35 Insulin Aspart (*Bkc) 100 Units/Ml SUB-Q Not Given TIDWM [facility] Protocol Insulin Aspart 2 - 4 units 06/26/24 21:00 07/05/24 20:39 Insulin Aspart (*Bkc) 100 Units/Ml SUB-Q Not Given HS [facility] Protocol Insulin Glargine 8 units 06/28/24 21:00 07/05/24 20:39 Insulin Glargine (*Bkc) 100 Units/Ml SUB-Q Not Given HS [facility] Isosorbide Mononitrate 15 mg 07/03/24 09:00 07/05/24 16:43 Isosorbide Mononitrate 15 Mg Tab.Er.24h PO Not Given BID@0900,1600 [facility] Metolazone 5 mg 07/05/24 11:55 07/05/24 12:36 Metolazone 5 Mg Tablet PO Not Given QAM [facility] Metoprolol Succinate 25 mg 06/26/24 09:00 07/05/24 08:57 Metoprolol Succinate Ext Rel 25 Mg Tabcr PO 25 mg QAM WARD Administration Ondansetron HCl 4 mg 06/25/24 23:05 Ondansetron Inj 4 Mg/2 Ml Vial IV PUSH Q6H PRN Nausea And Vomiting Pantoprazole Sodium 40 mg 06/26/24 09:00 07/05/24 08:57 Pantoprazole 40 Mg Tablet PO 40 mg QAM WARD Administration Polyethylene Glycol 17 gm 07/04/24 09:00 07/05/24 08:57 Polyethylene Glycol 3350 17 Gm Powd.Pack PO 17 gm QAM WARD Administration Pregabalin 25 mg 06/26/24 21:00 07/05/24 20:01 Pregabalin (*Crx) 25 Mg Capsule PO Not Given HS WARD Fluticasone/Salmeterol 2 puff 07/02/24 20:00 07/06/24 07:24 Fluticasone/Salmeterol 115-21 Mcg Inhaler 1 Puff INHALATION 2 puff Q12HRT WARD Administration Sodium Zirconium Cyclosilicate 10 gm 07/02/24 16:50 07/05/24 20:01 Sodium Zirconium Cyclosilicate 10 Gm Powd.Pack PO Not Given TID@1000,1500,2200 WARD Tamsulosin HCl 0.4 mg 06/25/24 23:10 07/05/24 20:01 Tamsulosin Hcl 0.4 Mg Capsule PO Not Given QHS WARD Vitamin D 1,000 units 06/26/24 09:00 07/05/24 08:56 Cholecalciferol 1,000 Units Tablet PO 1,000 units DAILY WARD Administration Wound Care/Dressing Products 1 patch 07/06/24 09:00 Hydrocolloid Dressing (Aquacel) Patch TOPICAL DAILY [facility] Radiology Results: ITS Impressions Head CT 06/24/24 18:31 IMPRESSION: Hypodensity in the left posterior temporal/occipital area which is suggestive of acute/subacute infarct with multiple hyperdensities which may be hemorrhagic areas. Calcification is less likely. MRI evaluation is advised. Physician: Manav Duarte MD Was notified with the result of the patient at time 6:45 PM on June 24, 2024. Head/Neck CTA 06/24/24 19:43 IMPRESSION: 1. Nonvisualization of the distal left posterior cerebral artery. Otherwise normal CTA of the head. 2. CTA of the neck. Shows severe calcification of the carotid arteries. Percent stenosis per NASCET criteria is 60% on the right side. 3. Bilateral pleural effusion with adjacent atelectasis versus pneumonia. Venous Doppler Study 06/26/24 12:46 IMPRESSION: 1. No deep venous thrombosis. Pulmonary Perfusion Imaging 06/26/24 13:58 IMPRESSION: 1. No immediate probability for pulmonary embolism. ADDENDUM: 07/02/24 1044 CORRECTION: There is a dictation error in the impression section. With the correction capitalized this should read- 1. INTERMEDIATE probability for pulmonary embolism. This correction was discussed with Dior Ugarte, the nurse caring for the patient, at 10:40 AM. Chest X-Ray 07/03/24 11:30 Impression: Small bilateral pleural effusions with mild bibasilar pulmonary edema/atelectasis. Stable cardiomegaly, status post CABG and aortic valve replacement, with pacemaker device. Renal Ultrasound 07/03/24 20:41 IMPRESSION: No hydronephrosis or renal calculi. Findings suggesting medical renal disease. Labs Labs: Laboratory Results - last 24 hr 07/05/24 07/05/24 07/06/24 15:58 19:54 04:22 WBC 5.9 RBC 2.72 L Hgb 8.3 L Hct 28.1 L MCV 103.3 H MCH 30.5 MCHC 29.5 L RDW 16.0 H Plt Count 136 L MPV 10.3 Immature Gran % (Auto) 0.5 Neut % (Auto) 86.6 H Lymph % (Auto) 4.9 L [place] % (Auto) 7.7 Eos % (Auto) 0.3 Baso % (Auto) 0.0 L Lymph # (Auto) 0.29 L [place] # (Auto) 0.5 Eos # (Auto) 0.0 Baso # (Auto) 0.0 Abs Immat Gran (auto) 0.03 Absolute Neuts (auto) 5.1 Absolute Nucleated RBC 0.000 Nucleated RBC % 0.0 Sodium 130 L Potassium 5.0 Chloride 90 L Carbon Dioxide 32 H Anion Gap 8 BUN 131 H Creatinine 2.64 H Estim Creat Clear Calc 22 Estimated GFR 23 L Glucose 183 H POC Capillary Glucose 272 H 181 H Calcium 7.8 L Phosphorus 4.7 H Total Bilirubin 0.6 AST 19 ALT 15 Alkaline Phosphatase 63 Total Protein 6.0 L Albumin 3.3 L 07/06/24 07:45 WBC RBC Hgb Hct MCV MCH MCHC RDW Plt Count MPV Immature Gran % (Auto) Neut % (Auto) Lymph % (Auto) [place] % (Auto) Eos % (Auto) Baso % (Auto) Lymph # (Auto) [place] # (Auto) Eos # (Auto) Baso # (Auto) Abs Immat Gran (auto) Absolute Neuts (auto) Absolute Nucleated RBC Nucleated RBC % Sodium Potassium Chloride Carbon Dioxide Anion Gap BUN Creatinine Estim Creat Clear Calc Estimated GFR Glucose POC Capillary Glucose 195 H Calcium Phosphorus Total Bilirubin AST ALT Alkaline Phosphatase Total Protein Albumin
[2024-07-06 11:59] LABS: Glucose Point of Care 234 mg/dl (65-105)
[2024-07-06] MEDS: INSULIN ASPART (*BKC) 100 UNITS/ML SUB-Q ×3 (12:40→22:00)
--- NOTE | 2024-07-06 13:06 | PCOTNOTE ---
Per RN, Patient is on BiPapp, Patient is having hospice come speak with them at this time.
--- NOTE | 2024-07-06 14:30 | PM.IMPN ---
Progress Note: A&P Assessment and Plan (1) Acute ischemic stroke: Code(s): I63.9 - Cerebral infarction, unspecified Status: Acute Assessment and Plan: Head CT shown hypodensity in the left posterior temporal/occipital area suggestive of acute/subacute infarct with multiple hyperdensities which may be hemorrhagic areas Head/neck CTA showed severe calcification of the carotid arteries 60% on the right side, bilateral pleural effusion with adjacent atelectasis versus pneumonia Unable to do MRI brain due to pacemaker Continue Aspirin, lipitor PT/OT/ST neurology following (2) Acute and chronic respiratory failure with hypercapnia: Code(s): J96.22 - Acute and chronic respiratory failure with hypercapnia Status: Acute Assessment and Plan: From COPD exacerbation abg 7.249/76.1/88.6/32.5 resolving continue Nighttime BiPAP S/p IV steroid per Pulmonology continue bronchodilators monitor (3) CHF (congestive heart failure): Code(s): I50.9 - Heart failure, unspecified Status: Chronic Assessment and Plan: ProBNP greater than 30,000, patient has 4+ pitting edema to bilateral lower extremities Troponin 0.078> 0.078> 0.070--likely demand ischemia ECHO EF 40-45% On Bumex and Metolazone, per nephrology Repeat CXR showed no significant change to small to moderate-sized bilateral pleural effusions (4) Elevated d-dimer: Code(s): R79.89 - Other specified abnormal findings of blood chemistry Status: Acute Assessment and Plan: D-dimer 1.9 Will get V/Q scan negative for PE Venous Doppler LE, negative (5) DM2 (diabetes mellitus, type 2): Code(s): E11.9 - Type 2 diabetes mellitus without complications Status: Chronic Assessment and Plan: Blood sugars ranging 175-230 Hgb A1C 5.4 on 09/03/2020 Will recheck hemoglobin A1c Accu checks AC/HS High-dose SSI ordered hypoglycemic protocol in place Diabetic diet and 2 g sodium diet ordered (6) COPD (chronic obstructive pulmonary disease): Code(s): J44.9 - Chronic obstructive pulmonary disease, unspecified Status: Chronic Assessment and Plan: in exacerbation bronchodilators monitor (7) Hypertension: Code(s): I10 - Essential (primary) hypertension Status: Chronic Assessment and Plan: Blood pressure ranging 102/54 to 118/72 Continue isosorbide (8) CAD (coronary artery disease): Code(s): I25.10 - Atherosclerotic heart disease of [place] coronary artery without angina pectoris Status: Chronic Assessment and Plan: Status post CABG x5 vessel Continue atorvastatin (9) Pacemaker: Code(s): Z95.0 - Presence of cardiac pacemaker Status: Acute Assessment and Plan: Ventricular pacemaker in place EKG showed electronic ventricular pacemaker with a rate of 65, QTC 517 (10) BPH (benign prostatic hyperplasia): Code(s): N40.0 - Benign prostatic hyperplasia without lower urinary tract symptoms Status: Chronic Assessment and Plan: Continue finasteride and tamsulosin (11) Chronic anemia: Code(s): D64.9 - Anemia, unspecified Status: Chronic Assessment and Plan: Hemoglobin 9.4-->8.4 Appears to be chronic Continue ferrous sulfate isat 15 and Ferritin 43. IV Iron 400/1000mg continue PO Iron (12) Sleep apnea: Code(s): G47.30 - Sleep apnea, unspecified Status: Chronic Assessment and Plan: Patient currently requiring BiPAP due to hypercapnia Plan CHRISTIAN on CKD , worsening 1.8-2.3. Nephrology eval noted that patient may have to have to adjust to higher Creatinine thus recommended restarting Lasix, Lasix restarted 40mg bid IV Cr 2.51-->2.68 baseline is about 1.6 Lasix on hold, given worsening fluid overload, patient may need dialysis Nephrology consulted Hyperkalemia K 5.0 Started [facility] Nephrology following iron deficiency anemia Hb 8.2, isat 15 Give 400mg IV iron continue PO Iron monitor DVT prophylaxis on SCDs, hx of hemorrhagic CVA MBS held as family is considering hospice awaiting son's arrival this evening for hospice conversation Subjective Date/time seen: 07/06/24 14:30 Interval history: Patient comfortable at bedside is considering hospice care and is waiting for her son to arrive this evening tohave the discussion Review of Systems Review of Systems: All systems reviewed & are unremarkable except as noted in HPI and below Exam Narrative: General: In no acute distress, well nourished Head: atraumatic, no encephalopathy Eyes: PERRLA, sclera clear ENT: moist mucous membranes, nasal passages clear Neck: supple, no JVD, no adenopathy, trachea midline Cardiac: Normal S1 and S2. No murmur, gallops or friction rubs, peripheral pulses intact. Respiratory:Inspiratory and expiratory wheezing, no other adventitious lung sounds, currently on nasal cannula with use of accessory muscles and acute respiratory distress. Gastrointestinal: soft, non-distended, non-tender, normoactive bowel sounds. : voiding without difficulty. Extremities:BUE with [employer] program director 4/5 bilaterally, 4+ pitting edema to bilateral lower extremities Skin: clean, dry, intact. No wounds or lesions. Neuro: Alert and oriented x4, cranial nerves intact, LUE weakness Psych: normal mood, normal affect, interactive Objective Data Vital Signs Vital Signs: Vital Signs - 24 hr 07/05/24 16:00 07/05/24 16:00 07/05/24 16:00 Temperature 97.2 F L Pulse Rate 84 60 Respiratory Rate 19 Blood Pressure 109/64 Pulse Oximetry 99 100 Oxygen Delivery Autopap Fraction of Inspired Oxygen 07/05/24 16:02 07/05/24 16:02 07/05/24 16:16 Temperature Pulse Rate 93 93 91 Respiratory Rate 25 H 20 20 Blood Pressure Pulse Oximetry 98 Oxygen Delivery BiPAP Fraction of Inspired Oxygen 07/05/24 18:00 07/05/24 20:00 07/05/24 20:00 Temperature 97.8 F Pulse Rate 60 88 60 Respiratory Rate 20 16 Blood Pressure 100/56 L Pulse Oximetry 99 99 Oxygen Delivery BiPAP Fraction of Inspired Oxygen 07/05/24 20:00 07/05/24 20:00 07/05/24 20:00 Temperature Pulse Rate 60 Respiratory Rate 16 Blood Pressure Pulse Oximetry 99 98 Oxygen Delivery BiPAP BiPAP Fraction of Inspired Oxygen 28 28 07/05/24 20:00 07/05/24 20:11 07/05/24 22:00 Temperature Pulse Rate 60 60 66 Respiratory Rate 16 Blood Pressure Pulse Oximetry Oxygen Delivery Fraction of Inspired Oxygen 07/05/24 22:21 07/06/24 00:00 07/06/24 00:00 Temperature 97.9 F Pulse Rate 60 61 60 Respiratory Rate 18 20 16 Blood Pressure 105/45 L Pulse Oximetry 95 97 Oxygen Delivery BiPAP Fraction of Inspired Oxygen 07/06/24 00:00 07/06/24 00:00 07/06/24 00:45 Temperature Pulse Rate 84 60 Respiratory Rate 16 Blood Pressure Pulse Oximetry 96 Oxygen Delivery BiPAP Fraction of Inspired Oxygen 28 07/06/24 02:00 07/06/24 02:20 07/06/24 03:27 Temperature Pulse Rate 60 60 60 Respiratory Rate 16 16 Blood Pressure Pulse Oximetry 95 Oxygen Delivery BiPAP Fraction of Inspired Oxygen 07/06/24 03:36 07/06/24 04:00 07/06/24 04:00 Temperature 97.8 F Pulse Rate 60 62 Respiratory Rate 16 18 Blood Pressure 96/37 L Pulse Oximetry 100 97 Oxygen Delivery BiPAP Fraction of Inspired Oxygen 28 07/06/24 04:00 07/06/24 06:00 07/06/24 07:15 Temperature Pulse Rate 60 60 60 Respiratory Rate 16 Blood Pressure Pulse Oximetry 97 Oxygen Delivery BiPAP Fraction of Inspired Oxygen 07/06/24 07:15 07/06/24 07:24 07/06/24 08:00 Temperature 97.5 F L Pulse Rate 60 60 61 Respiratory Rate 16 15 15 Blood Pressure 95/51 L Pulse Oximetry 96 Oxygen Delivery Fraction of Inspired Oxygen 07/06/24 08:00 07/06/24 08:00 07/06/24 10:00 Temperature Pulse Rate 60 65 Respiratory Rate Blood Pressure Pulse Oximetry 96 Oxygen Delivery BiPAP Fraction of Inspired Oxygen 28 07/06/24 11:17 07/06/24 11:17 07/06/24 11:24 Temperature Pulse Rate 60 60 60 Respiratory Rate 22 H 22 H 20 Blood Pressure Pulse Oximetry 98 Oxygen Delivery BiPAP Fraction of Inspired Oxygen 07/06/24 12:00 07/06/24 12:00 Temperature 97.5 F L Pulse Rate 59 L Respiratory Rate 28 H Blood Pressure 110/84 Pulse Oximetry 96 98 Oxygen Delivery BiPAP Fraction of Inspired Oxygen 28 Intake/Output Intake/Output: Intake & Output 07/03/24 07/04/24 07/05/24 07/06/24 23:59 23:59 23:59 23:59 Intake Total 480 1520 640 991.7 Output Total 650 950 700 200 Balance -170 570 -60 791.7 Meds/Results Medications: Active Medications Generic Name Dose Route Start Last Admin Trade Name Freq PRN Reason Stop Dose Admin Acetaminophen 650 mg 06/25/24 23:05 07/03/24 17:50 Acetaminophen 325 Mg Tablet PO 650 mg Q4H PRN Administration Mild Pain (1-3) or Fever Albuterol/Ipratropium 3 ml 07/02/24 13:50 07/06/24 11:17 Ipratropium 0.5 Mg/Albuterol Sulfate 2.5 Mg Ampul.Neb 3 Ml INHALATION 3 ml Q4HRT WARD Administration Aspirin 81 mg 07/01/24 09:00 07/06/24 12:18 Aspirin 81 Mg Enteric Tablet PO Not Given QAM WARD Atorvastatin Calcium 40 mg 06/25/24 23:10 07/05/24 20:01 Atorvastatin 40 Mg Tablet PO Not Given HS WARD Bumetanide 2 mg 07/05/24 11:55 07/06/24 10:29 Bumetanide Inj 2.5 Mg/10 Ml Vial IV PUSH 2 mg BID WARD Administration Cyanocobalamin 1,000 mcg 06/26/24 09:00 07/06/24 12:18 Cyanocobalamin 1,000 Mcg Tablet PO Not Given DAILY WARD Dextrose 12.5 gm 06/26/24 04:23 Dextrose 50% 25 Gm/50 Ml Syringe IV PUSH PRN PRN Hypoglycemia Protocol Epoetin Edwin-epbx 10,000 units 07/04/24 09:00 07/04/24 10:41 Epoetin Edwin-Epbx 10,000 Units/Ml Vial SUB-Q 10,000 units TUTHSA@09 WARD Administration Ferrous Sulfate 325 mg 06/26/24 09:00 07/06/24 12:18 Ferrous Sulfate [address] PO Not Given BID WARD Finasteride 5 mg 06/26/24 09:00 07/06/24 12:18 Finasteride 5 Mg Tablet PO Not Given DAILY [facility] Folic Acid 1 mg 06/26/24 09:00 07/06/24 12:18 Folic Acid 1 Mg Tablet PO Not Given DAILY [facility] Glucagon 1 mg 06/26/24 04:23 Glucagon For Inj 1 Mg Vial IM PRN PRN Hypoglycemia Protocol Glucose 15 gm 06/26/24 04:23 Glucose Oral Gel 15 Gm Of Glucse In 37.5 Gm Tube PO PRN PRN Hypoglycemia Protocol Dextrose 1,000 mls @ 100 mls/hr 06/26/24 04:23 Dextrose 5% 1,000 Ml IVPB PRN PRN Hypoglycemia Protocol Sodium Chloride 1,000 mls @ 50 mls/hr 07/05/24 13:25 07/06/24 09:29 Normal Saline Iv IV CONT 50 mls/hr .Q20H WARD Administration Insulin Aspart 4 - 8 units 06/26/24 08:00 07/06/24 12:40 Insulin Aspart (*Bkc) 100 Units/Ml SUB-Q 4 units TIDWM WARD Administration Protocol Insulin Aspart 2 - 4 units 06/26/24 21:00 07/05/24 20:39 Insulin Aspart (*Bkc) 100 Units/Ml SUB-Q Not Given HS [facility] Protocol Insulin Glargine 8 units 06/28/24 21:00 07/05/24 20:39 Insulin Glargine (*Bkc) 100 Units/Ml SUB-Q Not Given HS [facility] Isosorbide Mononitrate 15 mg 07/03/24 09:00 07/06/24 12:19 Isosorbide Mononitrate 15 Mg Tab.Er.24h PO Not Given BID@0900,1600 WARD Metolazone 5 mg 07/05/24 11:55 07/06/24 12:19 Metolazone 5 Mg Tablet PO Not Given QAM [facility] Metoprolol Succinate 25 mg 06/26/24 09:00 07/06/24 12:19 Metoprolol Succinate Ext Rel 25 Mg Tabcr PO Not Given QAM [facility] Ondansetron HCl 4 mg 06/25/24 23:05 Ondansetron Inj 4 Mg/2 Ml Vial IV PUSH Q6H PRN Nausea And Vomiting Pantoprazole Sodium 40 mg 06/26/24 09:00 07/06/24 12:19 Pantoprazole 40 Mg Tablet PO Not Given QAM [facility] Polyethylene Glycol 17 gm 07/04/24 09:00 07/06/24 12:19 Polyethylene Glycol 3350 17 Gm Powd.Pack PO Not Given QAM [facility] Pregabalin 25 mg 06/26/24 21:00 07/05/24 20:01 Pregabalin (*Crx) 25 Mg Capsule PO Not Given HS [facility] Sodium Zirconium Cyclosilicate 10 gm 07/02/24 16:50 07/06/24 12:19 Sodium Zirconium Cyclosilicate 10 Gm Powd.Pack PO Not Given TID@1000,1500,2200 WARD Tamsulosin HCl 0.4 mg 06/25/24 23:10 07/05/24 20:01 Tamsulosin Hcl 0.4 Mg Capsule PO Not Given QHS [facility] Vitamin D 1,000 units 06/26/24 09:00 07/06/24 12:18 Cholecalciferol 1,000 Units Tablet PO Not Given DAILY [facility] Wound Care/Dressing Products 1 patch 07/06/24 09:00 07/06/24 12:19 Hydrocolloid Dressing (Aquacel) Patch TOPICAL Not Given DAILY [facility] Radiology Results: ITS Impressions Head CT 06/24/24 18:31 IMPRESSION: Hypodensity in the left posterior temporal/occipital area which is suggestive of acute/subacute infarct with multiple hyperdensities which may be hemorrhagic areas. Calcification is less likely. MRI evaluation is advised. Physician: Manav Duarte MD Was notified with the result of the patient at time 6:45 PM on June 24, 2024. Head/Neck CTA 06/24/24 19:43 IMPRESSION: 1. Nonvisualization of the distal left posterior cerebral artery. Otherwise normal CTA of the head. 2. CTA of the neck. Shows severe calcification of the carotid arteries. Percent stenosis per NASCET criteria is 60% on the right side. 3. Bilateral pleural effusion with adjacent atelectasis versus pneumonia. Venous Doppler Study 06/26/24 12:46 IMPRESSION: 1. No deep venous thrombosis. Pulmonary Perfusion Imaging 06/26/24 13:58 IMPRESSION: 1. No immediate probability for pulmonary embolism. ADDENDUM: 07/02/24 1044 CORRECTION: There is a dictation error in the impression section. With the correction capitalized this should read- 1. INTERMEDIATE probability for pulmonary embolism. This correction was discussed with Dior Ugarte, the nurse caring for the patient, at 10:40 AM. Chest X-Ray 07/03/24 11:30 Impression: Small bilateral pleural effusions with mild bibasilar pulmonary edema/atelectasis. Stable cardiomegaly, status post CABG and aortic valve replacement, with pacemaker device. Renal Ultrasound 07/03/24 20:41 IMPRESSION: No hydronephrosis or renal calculi. Findings suggesting medical renal disease. Labs Labs: Laboratory Results - last 24 hr 07/05/24 07/05/24 07/06/24 15:58 19:54 04:22 WBC 5.9 RBC 2.72 L Hgb 8.3 L Hct 28.1 L MCV 103.3 H MCH 30.5 MCHC 29.5 L RDW 16.0 H Plt Count 136 L MPV 10.3 Immature Gran % (Auto) 0.5 Neut % (Auto) 86.6 H Lymph % (Auto) 4.9 L [place] % (Auto) 7.7 Eos % (Auto) 0.3 Baso % (Auto) 0.0 L Lymph # (Auto) 0.29 L [place] # (Auto) 0.5 Eos # (Auto) 0.0 Baso # (Auto) 0.0 Abs Immat Gran (auto) 0.03 Absolute Neuts (auto) 5.1 Absolute Nucleated RBC 0.000 Nucleated RBC % 0.0 Sodium 130 L Potassium 5.0 Chloride 90 L Carbon Dioxide 32 H Anion Gap 8 BUN 131 H Creatinine 2.64 H Estim Creat Clear Calc 22 Estimated GFR 23 L Glucose 183 H POC Capillary Glucose 272 H 181 H Calcium 7.8 L Phosphorus 4.7 H Total Bilirubin 0.6 AST 19 ALT 15 Alkaline Phosphatase 63 Total Protein 6.0 L Albumin 3.3 L 07/06/24 07/06/24 07:45 11:55 WBC RBC Hgb Hct MCV MCH MCHC RDW Plt Count MPV Immature Gran % (Auto) Neut % (Auto) Lymph % (Auto) [place] % (Auto) Eos % (Auto) Baso % (Auto) Lymph # (Auto) [place] # (Auto) Eos # (Auto) Baso # (Auto) Abs Immat Gran (auto) Absolute Neuts (auto) Absolute Nucleated RBC Nucleated RBC % Sodium Potassium Chloride Carbon Dioxide Anion Gap BUN Creatinine Estim Creat Clear Calc Estimated GFR Glucose POC Capillary Glucose 195 H 234 H Calcium Phosphorus Total Bilirubin AST ALT Alkaline Phosphatase Total Protein Albumin Quality VTE Prophylaxis VTE prophylaxis: mechanical ordered
[2024-07-06] MEDS: SODIUM ZIRCONIUM CYCLOSILICATE 10 GM POWD.PACK PO (14:49)
[2024-07-06] MEDS: FERROUS SULFATE 325 MG TABLET DR PO (16:48)
[2024-07-06] MEDS: ISOSORBIDE MONONITRATE 15 MG TAB.ER.24H PO (16:48)
[2024-07-06 16:51] LABS: Folic Acid > 20.0 ng/mL (2.76->20); Vitamin B12 > 1000.0 pg/mL (239-931)
[2024-07-06 18:41] LABS: Glucose Point of Care 213 mg/dl (65-105)
[2024-07-06] MEDS: ATORVASTATIN 40 MG TABLET PO (20:25)
[2024-07-06] MEDS: TAMSULOSIN HCL 0.4 MG CAPSULE PO (20:25)
[2024-07-06 21:14] LABS: Glucose Point of Care 270 mg/dl (65-105)
[2024-07-06] MEDS: INSULIN GLARGINE (*BKC) 100 UNITS/ML 8 UNITS SUB-Q (22:00)
[2024-07-07] VITALS (24 sets, daily range): BP systolic 96–131; BP diastolic 40–61; PULSE 60–76; RESP 16–28; TEMP 36.4–36.7; O2SAT 92–100
[2024-07-07] MEDS: IPRATROPIUM 0.5 MG/ALBUTEROL SULFATE 2.5 MG AMPUL.NEB 3 ML INHALATION ×5 (00:21→20:15)
[2024-07-07] MEDS: SODIUM CHLORIDE 0.9% IV 1,000 ML 50 ML IV CONT (06:06)
[2024-07-07 07:41] LABS: Albumin Level 3.1 g/dL (3.5-5.1); Anion Gap 9 mmol/L (4-12); Calcium 7.5 mg/dL (8.4-10.2); Carbon Dioxide 32 mmol/L (22-30); Chloride 90 mmol/L (98-107); Estimated CRCL calculation 24 ml/min; Estimated Glomerular Filt Rate 25; Glucose 212 mg/dL (65-110); Phosphorus 4.4 mg/dL (2.5-4.5); Potassium 4.6 mmol/L (3.4-5.0); Sodium 131 mmol/L (137-145)
[2024-07-07 07:57] LABS: Glucose Point of Care 208 mg/dl (65-105)
[2024-07-07 08:06] LABS: Blood Urea Nitrogen 130 mg/dL (9-20)
[2024-07-07] MEDS: INSULIN ASPART (*BKC) 100 UNITS/ML SUB-Q ×4 (08:30→20:51)
[2024-07-07] MEDS: FERROUS SULFATE 325 MG TABLET DR PO ×2 (08:31→18:18)
[2024-07-07] MEDS: FOLIC ACID 1 MG TABLET PO (08:31)
[2024-07-07] MEDS: ASPIRIN 81 MG ENTERIC TABLET PO (08:31)
[2024-07-07] MEDS: CYANOCOBALAMIN 1,000 MCG TABLET 1000 MCG PO (08:31)
[2024-07-07] MEDS: FINASTERIDE 5 MG TABLET PO (08:31)
[2024-07-07] MEDS: metOLazone 5 MG TABLET PO (08:31)
[2024-07-07] MEDS: CHOLECALCIFEROL 1,000 UNITS TABLET 1000 UNITS PO (08:31)
[2024-07-07] MEDS: PANTOPRAZOLE 40 MG TABLET PO (08:32)
[2024-07-07] MEDS: HYDROCOLLOID DRESSING 1 PATCH TOPICAL (08:32)
[2024-07-07] MEDS: EPOETIN ALFA-EPBX 10,000 UNITS/ML VIAL 10000 UNITS SUB-Q (08:38)
--- NOTE | 2024-07-07 08:46 | P.PNNP_ITS ---
Progress Note: A&P Assessment and Plan (1) Acute kidney injury: Code(s): N17.9 - Acute kidney failure, unspecified Status: Acute Assessment and Plan: * as noted by recent testing * suspect due to several issues: * volume overload * infection (UTI) * previous IV diuresis * outpatient diuretics prior to admission * hypoxia * relative hypotension * contrast exposure (although creatinine elevated even prior to this...) * outpatient records note baselinecreatinine seems to be around 1.8-2.3 * however, has been as high as 3.8mg/dl with acute hospitalizations and need for aggresive diuresis * suspect his admission creatinine was a dilutional value since he was severely volume overloaded at that time * no significant diuresis in spite of high dose bumex with metolazone * remains at risk of [employer]/hemodialysis * although dialysis is an option, I very much doubt it would really improve his overall clinical status given his chronic cardiac/lung issues (2) Chronic kidney disease, stage IV (severe): Code(s): N18.4 - Chronic kidney disease, stage 4 (severe) Status: Chronic Assessment and Plan: * baseline creatinine runs ~ 1.8 - 2.3mg/dl ([facility]) * however, given his multiple admissions for volume overload/acute hypoxic respiratory failure and the need for diuresis, his creatinine has run in the 3ish range * furthermore, he tends have significant azotemia with BUNs running in the 100s+ range (presumably due to diuretics and prerenal factors) * due to hypertension, diabetes, CHF/cardiomyopathy with necessity of chronic diuretic therapy, vascular disease and age-related change * follows with Nephrology at [facility] * according to his , there have been ongoing discussions about dialysis with his palliative care team at [facility]. (3) Acute and chronic respiratory failure with hypercapnia: Code(s): J96.22 - Acute and chronic respiratory failure with hypercapnia Status: Acute Assessment and Plan: * due to combo of CHF and COPD complicated by his AFUA * on BiPAP therapy PRN * off steroids * titrating diuretics to remove fluid (but limited response noted) * Pulmonary following with recommendations noted (4) CHF (congestive heart failure): Code(s): I50.9 - Heart failure, unspecified Status: Chronic Assessment and Plan: * known history * Echo (06/10) noted: * left ventricular systolic function is mildly reduced - estimated at 40-45% * right ventricular systolic function is reduced * bioprosthetic valve appears to be well-seated. Leaflets not well visualized. Peak velocity of 2.5m/s, mean gradient of 13mmHg * no aortic valve regurgitation * mitral valve annulus is severely calcified * mitral valve has thickened leaflets * mild mitral valve regurgitation * moderate tricuspid valve regurgitation * pulmonary hypertension, estimated pulmonary arterial systolic pressure is 66 mmHg * CXR results noted * attempts at aggressive diuresis have not been successful (5) COPD (chronic obstructive pulmonary disease): Code(s): J44.9 - Chronic obstructive pulmonary disease, unspecified Status: Chronic Assessment and Plan: * exacerbation suspected on admission * follow ABGs * BiPAP as needed * on nebulizers/bronchodilators therapy * Pulmonary following * continue supportive therapy (6) Acute ischemic stroke: Code(s): I63.9 - Cerebral infarction, unspecified Status: Acute Assessment and Plan: * head CT shown hypodensity in the left posterior temporal/occipital area suggestive of acute/subacute infarct with multiple hyperdensities which may be hemorrhagic areas * head/neck CTA showed severe calcification of the carotid arteries 60% on the right side, bilateral pleural effusion with adjacent atelectasis versus pneumonia * unable to do MRI brain due to pacemaker * Neurololgy following with recommendations * continue PT/OT/ST (7) Sleep apnea: Code(s): G47.30 - Sleep apnea, unspecified Status: Chronic Assessment and Plan: * known history * was not using CPAP machine before admission * BIPAP when resting during the day and at night * noted issues with CO2 retention by ABGs (8) Chronic anemia: Code(s): D64.9 - Anemia, unspecified Status: Chronic Assessment and Plan: * suspect related to CHRISTIAN, CKD, and acute illness * anemia studies also note iron deficiency * on oral iron * s/p IV venofer * dosing with Epogen while hospitalized * follow trend of H/H (9) Hypertension: Code(s): I10 - Essential (primary) hypertension Status: Chronic Assessment and Plan: * systolic 90 to 130 * follow trend of hemodynamics (10) DM2 (diabetes mellitus, type 2): Code(s): E11.9 - Type 2 diabetes mellitus without complications Status: Chronic Assessment and Plan: * follow accu-cheks * glycemic control per hospitalist It would appear his and family are likely moving forward with hospice/comfort care measures (but she is waiting for more family members to arrive to discuss further) which seems appropriate given his multiple medical problems and issues. Will continue to follow from a distance. L Subjective Date/time seen: 07/07/24 08:46 Interval history: Follow-up for acute kidney injury/acute renal failure on chronic kidney disease. No real significant change since I last saw him; remains on BiPAP therapy at the time of my visit; at bedside and states she did meet with hospice yesterday afternoon -- it seems family is likely to move forward with this soon; renal function/creatinine better but BUN remains elevated; despite high dose diuretic therapy, no significant augmentation in urine output noted. Exam 2 Narrative: General: elderly but WD/WN male in NAD; on BiPAP Heart: normal S1 and S2; no rub Lungs: coarse breath sounds with some crackles at baseline Abdomen: soft, nontender, nondistended, positive bowel sounds Extremities: 2+ edema bilaterally Skin: warm and dry Objective Data Vital Signs Vital Signs: Vital Signs Temp Pulse Resp BP Pulse Ox O2 Del Method O2 Flow Rate 07/07/24 08:03 60 20 92 Nasal Cannula 2 07/07/24 08:00 98.1 F 60 24 H 96/54 L 95 07/07/24 05:36 60 07/07/24 04:56 60 20 07/07/24 04:49 60 21 H 07/07/24 04:00 60 07/07/24 04:00 61 18 121/44 L 98 07/07/24 04:00 96 BiPAP 07/07/24 03:30 60 21 H 96 BiPAP 07/07/24 02:00 60 07/07/24 00:30 60 21 H 07/07/24 00:21 62 21 H 07/07/24 00:00 60 07/07/24 00:00 61 18 122/40 L 99 07/07/24 00:00 98 BiPAP 07/06/24 22:00 60 07/06/24 20:50 60 21 H 97 BiPAP 07/06/24 20:06 60 20 07/06/24 20:01 98 Nasal Cannula 2 07/06/24 20:00 60 07/06/24 20:00 96 BiPAP 07/06/24 20:00 60 18 103/34 L 100 07/06/24 19:58 60 20 07/06/24 18:00 69 17 97/71 L 98 07/06/24 18:00 70 07/06/24 16:00 60 07/06/24 16:00 97.5 F L 58 L 24 H 93/40 L 100 07/06/24 15:42 60 20 07/06/24 15:35 60 20 07/06/24 15:35 100 Nasal Cannula 2 07/06/24 14:00 60 07/06/24 12:00 60 07/06/24 12:00 97.5 F L 59 L 28 H 110/84 98 07/06/24 12:00 96 BiPAP Intake/Output Intake/Output: Intake & Output 07/04/24 07/05/24 07/06/24 07/07/24 23:59 23:59 23:59 23:59 Intake Total 9224 542 0653.7 1290 Output Total 950 700 550 350 Balance 570 -60 1411.7 940 Meds/Results Medications: Active Medications Generic Name Dose Route Start Last Admin Trade Name Freq PRN Reason Stop Dose Admin Acetaminophen 650 mg 06/25/24 23:05 07/03/24 17:50 Acetaminophen 325 Mg Tablet PO 650 mg Q4H PRN Administration Mild Pain (1-3) or Fever Albuterol/Ipratropium 3 ml 07/02/24 13:50 07/07/24 08:03 Ipratropium 0.5 Mg/Albuterol Sulfate 2.5 Mg Ampul.Neb 3 Ml INHALATION 3 ml Q4HRT WARD Administration Aspirin 81 mg 07/01/24 09:00 07/07/24 08:31 Aspirin 81 Mg Enteric Tablet PO 81 mg QAM WARD Administration Atorvastatin Calcium 40 mg 06/25/24 23:10 07/06/24 20:25 Atorvastatin 40 Mg Tablet PO 40 mg HS WARD Administration Bumetanide 2 mg 07/05/24 11:55 07/07/24 10:38 Bumetanide Inj 2.5 Mg/10 Ml Vial IV PUSH 2 mg BID WARD Administration Cyanocobalamin 1,000 mcg 06/26/24 09:00 07/07/24 08:31 Cyanocobalamin 1,000 Mcg Tablet PO 1,000 mcg DAILY WARD Administration Dextrose 12.5 gm 06/26/24 04:23 Dextrose 50% 25 Gm/50 Ml Syringe IV PUSH PRN PRN Hypoglycemia Protocol Epoetin Edwin-epbx 10,000 units 07/04/24 09:00 07/07/24 08:38 Epoetin Edwin-Epbx 10,000 Units/Ml Vial SUB-Q 10,000 units TUTHSA@09 WARD Administration Ferrous Sulfate 325 mg 06/26/24 09:00 07/07/24 08:31 Ferrous Sulfate [address] PO 325 mg BID WARD Administration Finasteride 5 mg 06/26/24 09:00 07/07/24 08:31 Finasteride 5 Mg Tablet PO 5 mg DAILY WARD Administration Folic Acid 1 mg 06/26/24 09:00 07/07/24 08:31 Folic Acid 1 Mg Tablet PO 1 mg DAILY WARD Administration Glucagon 1 mg 06/26/24 04:23 Glucagon For Inj 1 Mg Vial IM PRN PRN Hypoglycemia Protocol Glucose 15 gm 06/26/24 04:23 Glucose Oral Gel 15 Gm Of Glucse In 37.5 Gm Tube PO PRN PRN Hypoglycemia Protocol Guaifenesin 1,200 mg 07/07/24 09:40 07/07/24 10:38 Guaifenesin 12 Hr 600 Mg Tabcr PO 1,200 mg Q12HR WARD Administration Dextrose 1,000 mls @ 100 mls/hr 06/26/24 04:23 Dextrose 5% 1,000 Ml IVPB PRN PRN Hypoglycemia Protocol Insulin Aspart 4 - 8 units 06/26/24 08:00 07/07/24 08:30 Insulin Aspart (*Bkc) 100 Units/Ml SUB-Q 4 units TIDWM WARD Administration Protocol Insulin Aspart 2 - 4 units 06/26/24 21:00 07/06/24 22:00 Insulin Aspart (*Bkc) 100 Units/Ml SUB-Q 2 units HS WARD Administration Protocol Insulin Glargine 8 units 06/28/24 21:00 07/06/24 22:00 Insulin Glargine (*Bkc) 100 Units/Ml SUB-Q 8 units HS WARD Administration Isosorbide Mononitrate 15 mg 07/03/24 09:00 07/07/24 10:38 Isosorbide Mononitrate 15 Mg Tab.Er.24h PO 15 mg BID@0900,1600 WARD Administration Metolazone 5 mg 07/05/24 11:55 07/07/24 08:31 Metolazone 5 Mg Tablet PO 5 mg QAM WARD Administration Metoprolol Succinate 12.5 mg 07/07/24 10:45 07/07/24 11:03 Metoprolol Succinate Ext Rel 12.5 Mg Tabcr PO 12.5 mg QAM WARD Administration Ondansetron HCl 4 mg 06/25/24 23:05 Ondansetron Inj 4 Mg/2 Ml Vial IV PUSH Q6H PRN Nausea And Vomiting Pantoprazole Sodium 40 mg 06/26/24 09:00 07/07/24 08:32 Pantoprazole 40 Mg Tablet PO 40 mg QAM WARD Administration Polyethylene Glycol 17 gm 07/04/24 09:00 07/07/24 08:32 Polyethylene Glycol 3350 17 Gm Powd.Pack PO Not Given QAM WARD Sodium Zirconium Cyclosilicate 10 gm 07/02/24 16:50 07/07/24 10:42 Sodium Zirconium Cyclosilicate 10 Gm Powd.Pack PO Not Given TID@1000,1500,2200 WARD Tamsulosin HCl 0.4 mg 06/25/24 23:10 07/06/24 20:25 Tamsulosin Hcl 0.4 Mg Capsule PO 0.4 mg QHS WARD Administration Vitamin D 1,000 units 06/26/24 09:00 07/07/24 08:31 Cholecalciferol 1,000 Units Tablet PO 1,000 units DAILY WARD Administration Wound Care/Dressing Products 1 patch 07/06/24 09:00 07/07/24 08:32 Hydrocolloid Dressing (Aquacel) Patch TOPICAL 1 patch DAILY WARD Administration Radiology Results: ITS Impressions Head CT 06/24/24 18:31 IMPRESSION: Hypodensity in the left posterior temporal/occipital area which is suggestive of acute/subacute infarct with multiple hyperdensities which may be hemorrhagic areas. Calcification is less likely. MRI evaluation is advised. Physician: Manav Duarte MD Was notified with the result of the patient at time 6:45 PM on June 24, 2024. Head/Neck CTA 06/24/24 19:43 IMPRESSION: 1. Nonvisualization of the distal left posterior cerebral artery. Otherwise normal CTA of the head. 2. CTA of the neck. Shows severe calcification of the carotid arteries. Percent stenosis per NASCET criteria is 60% on the right side. 3. Bilateral pleural effusion with adjacent atelectasis versus pneumonia. Venous Doppler Study 06/26/24 12:46 IMPRESSION: 1. No deep venous thrombosis. Pulmonary Perfusion Imaging 06/26/24 13:58 IMPRESSION: 1. No immediate probability for pulmonary embolism. ADDENDUM: 07/02/24 1044 CORRECTION: There is a dictation error in the impression section. With the correction capitalized this should read- 1. INTERMEDIATE probability for pulmonary embolism. This correction was discussed with Dior Ugarte, the nurse caring for the patient, at 10:40 AM. Chest X-Ray 07/03/24 11:30 Impression: Small bilateral pleural effusions with mild bibasilar pulmonary edema/atelectasis. Stable cardiomegaly, status post CABG and aortic valve replacement, with pacemaker device. Renal Ultrasound 07/03/24 20:41 IMPRESSION: No hydronephrosis or renal calculi. Findings suggesting medical renal disease. Labs Labs: Laboratory Tests 07/06/24 04:22 07/07/24 07:18 Calcium 7.5 L Phosphorus 4.4 Albumin 3.1 L
--- NOTE | 2024-07-07 09:26 | P.PNPL_ITS ---
Progress Note: A&P Assessment and Plan (1) Acute and chronic respiratory failure with hypercapnia: Code(s): J96.22 - Acute and chronic respiratory failure with hypercapnia Status: Acute Assessment and Plan: 07/04/24 He is better compensated now compared to admission; Last ABG showed compensated pH, lowest pCO2 in the system, adequate pO2. 7.35/51/85 on BiPAP 12/6, 25% and rate 16. He has the intersection of and stage systolic CHF leading to worsening renal perfusion, worsening acute on chronic kidney failure; lungs are not normal at baseline, has used O2 for years, now with inability to compe nsate. This will only get worse. 07/05/24 He is not improving due to worsening cardiorenal syndrome; PAP can only do so much. He is only requiring 28%, however he is failing therapy as his body shuts down. plan: 1) ABG tomorrow am after night on AVAPS. He is having progressive multiorgan deterioration due to systolic heart failure and worsening acute on chronic renal failure, driving up pCO2. 2) plans noted for modified barium swallow; he is weak, pre-terminal. Consider thickener for liquids, see how he responds. He is so sick that taking away food and drink seems inhumane. said that she knows that he is failing, and has called her son to come from [place] Saturday. She is ok with cancelling, and Dr Glasgow approves of cancelling MBS. He looks like he is close to . tells me that her son is flying in tomorrow from [place], she wants to hold off on withdrawing any treatment until he arrives. I will cancel the swallow study. 07/06/24: patient was on continuous noninvasive ventilation with the AVAPS mode and 28% FiO2 since 4:00 p.m. yesterday. He was taken off at 9:35 a.m. this morning and placed on 2 L nasal cannula with saturations 100%. Patient is in bed, he is awake and conversant. He is in mild respiratory distress. States he has some shortness of breath. he is afebrile. White blood cell count 5.9, creatinine 2.64, BUN 131. and granddaughter in the room and they tell me they are waiting for the son to arrive from [place] later tonight. They requested hospice consultation to gather information. cumulative patient is +3.4 L since admission. His weight is 102.4 with an admission weight of 95.7. last BNP was greater than 30,000 on 06/25/2024. Currently patient is on noninvasive ventilation with the AVAPS mode and rate of 14, tidal volume 500, EPAP 10, minimal inspiratory pressure 12, maximal inspiratory pressure 25, inspiratory time 1.0, rise of 3. I placed the patient on his fullface mask with these settings in an attempt to adjust for comfort. I increased the rise to 5 and he preferred to rise of 3. I decreased the rise to 1 and he preferred to rise of 3. He preferred inspiratory time 1.0 for comfort. Plan: Patient with congestive heart failure, acute on chronic kidney injury, fluid overload with anasarca, pleural effusions and pulmonary edema. Agree with as aggressive diuresis as tolerated by his cardiac and renal systems. Currently the patient is on metolazone 5 mg q.a.m., Bumex 2 mg IV push b.i.d. per Nephrology and hospitalist teams. Will continue current noninvasive ventilation with the AVAPS mode and 28% FiO2 p.r.n. during the day and at night. Discussed with and granddaughter in the room. Discussed with Dr. Jamison, will follow with you. 07/07/24: Patient wore the noninvasive ventilator with the AVAPS mode 28% last night. Patient said he did well with these settings. Currently the patient is on 2 L nasal cannula saturations 92%. Yesterday he was positive 1.4 L and cumulative he is positive 6.6 L since admission. Patient states he has difficulty expectorating his phlegm. Patient and family met with [facility] and the plan is to go home with hospice. I placed the patient on BiPAP and adjusted settings to comfort resulting in a BiPAP rate of 14, EPAP 5, inspiratory pressure 15, inspiratory time 1.0 and 2 L bleed in. Plan: Patient will be discharged home once arrangements have been made with [facility]. From a pulmonary perspective patient can be discharged on these pulmonary medications: breztri at 2 puffs b.i.d., rescue albuterol 2 puffs q.4 hours p.r.n. shortness of breath or wheezing guaifenesin 400 mg p.o. q.4 hours p.r.n. cough with phlegm. oxygen per hospice protocol. Currently the patient is on 2 L nasal cannula saturations 92%. For comfort, When patient naps or sleeps should be placed on noninvasive ventilation with the AVAPS AE mode with a rate of 14, tidal volume 500, minimum EPAP 5, maximum EPAP 15, minimum pressure support 11, maximum pressure support 25, inspiratory time 1.0 and 2 L bleed in. If the noninvasive ventilator with the AVAPS AE mode is not available, BiPAP rate of 14, EPAP 5, inspiratory pressure 15, inspiratory time 1.0 and 2 L bleed in. Discussed with in the room and Dr. Vallejo, will sign off, call with questions. (2) COPD (chronic obstructive pulmonary disease): Code(s): J44.9 - Chronic obstructive pulmonary disease, unspecified Status: Chronic Assessment and Plan: 07/05/24: Has dx of COPD made by the [facility]. Smoked 2 ppd x 20 years, quit decades ago. Patient had PFTs at the [facility] approximately 3 years ago and I do not have these results. he has been on inhalers since then. He has been on O2 for 7-8 years, uses nebulizer at home with albuterol, and his controller inhaler he says is Breztri. This is not his main problem. Plan: Airway clearance; he has little sputum. He can continue to try to use Cornet valve to help with any secretions he has. He does not have pneumonia; has a chronic cough with daily clear sputum. 07/06/24: Patient has no wheezing, no evidence of COPD exacerbation, bacterial infection or bronchitis. Plan: Continue DuoNebs Q 4 hours. This provides adequate beta agonist and muscarinic antagonists and will discontinue his Advair. 07/07/24: patient states he has good benefit from the DuoNebs and will continue those while he is in-house. Complains of some difficulty expectorating. Plan: I will add guaifenesin 1200 mg p.o. b.i.d.. When he is discharged on hospice will place him back on his home medication of breztri at 2 puffs b.i.d., rescue albuterol, guaifenesin 400 mg p.o. q.4 hours p.r.n. cough with phlegm. Subjective Date/time seen: 07/07/24 09:26 Interval history: 07/04/2024, new consult; Jessica Wallace is an 84-year-old man with CHF, CAD s/p CABG, stent, ppm with probable ICD, COPD, O2 use for 7-8 years, chronic kidney disease, DM type 2, anemia, AFUA, Agent [place] exposure, 100% disability. He has diagnosis of AFUA, had a CPAP for a few years, did not want to use it until the last few months when his breathing worsened, started regular use 3 months ago. Has a hard time keeping it on at night, sleeps more than he is awake, worsening exercise tolerance, increased leg swelling. [facility], sounds like CHF + acute and chronic respiratory failure, and acute and chronic kidney disease. [facility] at the end of that admission. He was admitted here at [facility] June 09 through admission with hypercapnic respiratory failure, decompensated systolic CHF, acute and chronic renal failure; he was having shortness of breath and LE swelling for several months. He went to a intermediate facility, became less responsive, returned on June 24 with altered mentation, had a UTI and an acute ischemic stroke; head CT showed left posterior temporal occipital ischemia with areas of hemorrhage. He had elevated pCO2 both admissions; this admission June 24 as placed on BiPAP in the ED, I/E = 12/6 with rate 20, 1 L/min O2. He had been on BiPAP most of this admission, improved pCO2. He has worsening acute on chronic renal failure, initial BUN was 102, creat was 2.19, with worsening failure, BUN 122, creat 2.76. He has systolic CHF, diabetes is out of control with glucose running in the 300s aggravated by solumedrol IV push Q 6 hours. He is receiving this for COPD. Nephrology has talked with him about dialysis, which he does not want because he watched his 34 year-old daughter have HD for a month before dying of scleroderma. His sister also had dialysis, he does not want that path. He has been on CPAP a few years, did not wear his device regularly until 3 months ago when he started having worsening CHF. His machine was adjusted after this May admission at the [facility]. He coughs daily, minimal sputum which is clear, uses albuterol at home and an inhaler, thinks that it is Breztri. 07/05/2024: Dr Ruiz changed his Lasix to Bumex 2 mg bid and metolazone. He had a bedside swallow today which was abnoraml, and now he is NPO for modified barium swallow tomorrow. He coughs with liquids, according to his RN who noticed this last weekend and today. Yesterday, I changed his BiPAP to AVAPS, he tolerated this well. He is on 2 L/min, sat is 98%. came to his room, we discussed his situation. He is not making enough urine, BUN and creat are rising. 07/06/24: patient was on continuous noninvasive ventilation with the AVAPS mode and 28% FiO2 since 4:00 p.m. yesterday. He was taken off at 9:35 a.m. this morning and placed on 2 L nasal cannula with saturations 100%. Patient is in bed, he is awake and conversant. He is in mild respiratory distress. States he has some shortness of breath. he is afebrile. White blood cell count 5.9, creatinine 2.64, BUN 131. and granddaughter in the room and they tell me they are waiting for the son to arrive from [place] later tonight. They requested hospice consultation to gather information. Currently patient is on noninvasive ventilation with the AVAPS mode and rate of 14, tidal volume 500, EPAP 10, minimal inspiratory pressure 12, maximal inspiratory pressure 25, inspiratory time 1.0, rise of 3. I placed the patient on his fullface mask with these settings in an attempt to adjust for comfort. I increased the rise to 5 and he preferred to rise of 3. I decreased the rise to 1 and he preferred to rise of 3. He preferred inspiratory time 1.0 for comfort. 07/07/24: Patient wore the noninvasive ventilator with the AVAPS mode 28% last night. Patient said he did well with these settings. Currently the patient is on 2 L nasal cannula saturations 92%. Yesterday he was positive 1.4 L and cumulative he is positive 6.6 L since admission. Patient states he has difficulty expectorating his phlegm. Patient and family met with hospice and the plan is to go home with hospice. DATA * 07/03/24 CXR; Impression: Small bilateral pleural effusions with mild bibasilar pulmonary edema/atelectasis. Stable cardiomegaly, status post CABG and aortic valve replacement, with pacemaker device. * ABGs ; he had acute hypercapnia during last admission June 09; his serum bicarbonate is low. He now has acute and chronic hypercapnia, serum bicarbonate is 27 to 32. document embedded image Review of Systems Review of Systems: All systems reviewed & are unremarkable except as noted in HPI and below Constitutional: Constitutional: Reports no additional constitutional complaints Eyes: Eyes: Reports no additional eye complaints ENT: Reports system reviewed and no additional complaints, except as documented Cardiovascular: Cardiovascular: Reports no additional cardiovascular complaints Respiratory: Respiratory: Reports no additional respiratory complaints Gastrointestinal: Gastrointestinal: Reports no additional gastrointestinal complaints Musculoskeletal: Musculoskeletal: Reports no additional musculoskeletal complaints Neurologic: Reports system reviewed and no additional complaints, except as documented Psychiatric: Psychiatric: Reports no additional psychiatric complaints Endocrine: Endocrine: Reports no additional endocrine complaints Hematologic/Lymphatic: Hematologic/Lymphatic: Reports no additional hematologic/lymphatic complaints Allergic/Immunologic: Allergic/Immunologic: Reports no additional allergic/immunologic complaints Exam Const: General: cooperative, healthy appearing and in distress Orientation/consciousness: oriented to person, oriented to place and oriented to time Other: Mild respiratory distress off of noninvasive ventilation HENMT: Head: normal to inspection Ears: hearing grossly normal bilaterally Eyes: General: appearance normal, both eyes and all related structures Neck: Neck: normal visual inspection Chest: Chest palpation & inspection: normal inspection of the chest Resp: Effort & Inspection: normal respiratory effort and able to speak in complete sentences Auscultation: crackles, no rales, no rhonchi, no wheezes and diminished lung sounds Other: bases Cardio: Jugular venous distension: no JVD GI: Inspection: normal to inspection Skin: General skin exam: normal color Neuro: General: oriented to person, oriented to place and oriented to time Extrem: General: normal to inspection and edema Other: anasarca Psych: Appearance: grossly normal Objective Data Vital Signs Vital Signs: Vital Signs - 24 hr 07/06/24 10:00 07/06/24 11:17 07/06/24 11:17 Temperature Pulse Rate 65 60 60 Respiratory Rate 22 H 22 H Blood Pressure Pulse Oximetry 98 Oxygen Delivery BiPAP Oxygen Flow Rate Fraction of Inspired Oxygen 07/06/24 11:24 07/06/24 12:00 07/06/24 12:00 Temperature 36.4 C L Pulse Rate 60 59 L Respiratory Rate 20 28 H Blood Pressure 110/84 Pulse Oximetry 96 98 Oxygen Delivery BiPAP Oxygen Flow Rate Fraction of Inspired Oxygen 28 07/06/24 12:00 07/06/24 14:00 07/06/24 15:35 Temperature Pulse Rate 60 60 Respiratory Rate Blood Pressure Pulse Oximetry 100 Oxygen Delivery Nasal Cannula Oxygen Flow Rate 2 Fraction of Inspired Oxygen 28 07/06/24 15:35 07/06/24 15:42 07/06/24 16:00 Temperature 36.4 C L Pulse Rate 60 60 58 L Respiratory Rate 20 20 24 H Blood Pressure 93/40 L Pulse Oximetry 100 Oxygen Delivery Oxygen Flow Rate Fraction of Inspired Oxygen 07/06/24 16:00 07/06/24 18:00 07/06/24 18:00 Temperature Pulse Rate 60 70 69 Respiratory Rate 17 Blood Pressure 97/71 L Pulse Oximetry 98 Oxygen Delivery Oxygen Flow Rate Fraction of Inspired Oxygen 07/06/24 19:58 07/06/24 20:00 07/06/24 20:00 Temperature Pulse Rate 60 60 Respiratory Rate 20 18 Blood Pressure 103/34 L Pulse Oximetry 100 96 Oxygen Delivery BiPAP Oxygen Flow Rate Fraction of Inspired Oxygen 28 07/06/24 20:00 07/06/24 20:01 07/06/24 20:06 Temperature Pulse Rate 60 60 Respiratory Rate 20 Blood Pressure Pulse Oximetry 98 Oxygen Delivery Nasal Cannula Oxygen Flow Rate 2 Fraction of Inspired Oxygen 07/06/24 20:50 07/06/24 22:00 07/07/24 00:00 Temperature Pulse Rate 60 60 Respiratory Rate 21 H Blood Pressure Pulse Oximetry 97 98 Oxygen Delivery BiPAP BiPAP Oxygen Flow Rate Fraction of Inspired Oxygen 07/07/24 00:00 07/07/24 00:00 07/07/24 00:21 Temperature Pulse Rate 61 60 62 Respiratory Rate 18 21 H Blood Pressure 122/40 L Pulse Oximetry 99 Oxygen Delivery Oxygen Flow Rate Fraction of Inspired Oxygen 07/07/24 00:30 07/07/24 02:00 07/07/24 03:30 Temperature Pulse Rate 60 60 60 Respiratory Rate 21 H 21 H Blood Pressure Pulse Oximetry 96 Oxygen Delivery BiPAP Oxygen Flow Rate Fraction of Inspired Oxygen 07/07/24 04:00 07/07/24 04:00 07/07/24 04:00 Temperature Pulse Rate 61 60 Respiratory Rate 18 Blood Pressure 121/44 L Pulse Oximetry 96 98 Oxygen Delivery BiPAP Oxygen Flow Rate Fraction of Inspired Oxygen 28 07/07/24 04:49 07/07/24 04:56 07/07/24 05:36 Temperature Pulse Rate 60 60 60 Respiratory Rate 21 H 20 Blood Pressure Pulse Oximetry Oxygen Delivery Oxygen Flow Rate Fraction of Inspired Oxygen 07/07/24 08:00 07/07/24 08:03 07/07/24 08:03 Temperature 36.7 C Pulse Rate 60 60 Respiratory Rate 24 H 20 Blood Pressure 96/54 L Pulse Oximetry 95 92 Oxygen Delivery Nasal Cannula Oxygen Flow Rate 2 Fraction of Inspired Oxygen Intake/Output Intake/Output: Intake & Output 07/04/24 07/05/24 07/06/24 07/07/24 23:59 23:59 23:59 23:59 Intake Total 7024 712 5009.7 1290 Output Total 950 700 550 350 Balance 570 -60 1411.7 940 Meds/Results Medications: Active Medications Generic Name Dose Route Start Last Admin Trade Name Freq PRN Reason Stop Dose Admin Acetaminophen 650 mg 06/25/24 23:05 07/03/24 17:50 Acetaminophen 325 Mg Tablet PO 650 mg Q4H PRN Administration Mild Pain (1-3) or Fever Albuterol/Ipratropium 3 ml 07/02/24 13:50 07/07/24 08:03 Ipratropium 0.5 Mg/Albuterol Sulfate 2.5 Mg Ampul.Neb 3 Ml INHALATION 3 ml Q4HRT WARD Administration Aspirin 81 mg 07/01/24 09:00 07/07/24 08:31 Aspirin 81 Mg Enteric Tablet PO 81 mg QAM WARD Administration Atorvastatin Calcium 40 mg 06/25/24 23:10 07/06/24 20:25 Atorvastatin 40 Mg Tablet PO 40 mg HS WARD Administration Bumetanide 2 mg 07/05/24 11:55 07/06/24 16:49 Bumetanide Inj 2.5 Mg/10 Ml Vial IV PUSH 2 mg BID WARD Administration Cyanocobalamin 1,000 mcg 06/26/24 09:00 07/07/24 08:31 Cyanocobalamin 1,000 Mcg Tablet PO 1,000 mcg DAILY WARD Administration Dextrose 12.5 gm 06/26/24 04:23 Dextrose 50% 25 Gm/50 Ml Syringe IV PUSH PRN PRN Hypoglycemia Protocol Epoetin Edwin-epbx 10,000 units 07/04/24 09:00 07/07/24 08:38 Epoetin Edwin-Epbx 10,000 Units/Ml Vial SUB-Q 10,000 units TUTHSA@09 WARD Administration Ferrous Sulfate 325 mg 06/26/24 09:00 07/07/24 08:31 Ferrous Sulfate [address] PO 325 mg BID WARD Administration Finasteride 5 mg 06/26/24 09:00 07/07/24 08:31 Finasteride 5 Mg Tablet PO 5 mg DAILY WARD Administration Folic Acid 1 mg 06/26/24 09:00 07/07/24 08:31 Folic Acid 1 Mg Tablet PO 1 mg DAILY WARD Administration Glucagon 1 mg 06/26/24 04:23 Glucagon For Inj 1 Mg Vial IM PRN PRN Hypoglycemia Protocol Glucose 15 gm 06/26/24 04:23 Glucose Oral Gel 15 Gm Of Glucse In 37.5 Gm Tube PO PRN PRN Hypoglycemia Protocol Dextrose 1,000 mls @ 100 mls/hr 06/26/24 04:23 Dextrose 5% 1,000 Ml IVPB PRN PRN Hypoglycemia Protocol Sodium Chloride 1,000 mls @ 50 mls/hr 07/05/24 13:25 07/07/24 06:06 Normal Saline Iv IV CONT 50 mls/hr .Q20H WARD Administration Insulin Aspart 4 - 8 units 06/26/24 08:00 07/07/24 08:30 Insulin Aspart (*Bkc) 100 Units/Ml SUB-Q 4 units TIDWM WARD Administration Protocol Insulin Aspart 2 - 4 units 06/26/24 21:00 07/06/24 22:00 Insulin Aspart (*Bkc) 100 Units/Ml SUB-Q 2 units HS WARD Administration Protocol Insulin Glargine 8 units 06/28/24 21:00 07/06/24 22:00 Insulin Glargine (*Bkc) 100 Units/Ml SUB-Q 8 units HS WARD Administration Isosorbide Mononitrate 15 mg 07/03/24 09:00 07/06/24 16:48 Isosorbide Mononitrate 15 Mg Tab.Er.24h PO 15 mg BID@0900,1600 [facility] Administration Metolazone 5 mg 07/05/24 11:55 07/07/24 08:31 Metolazone 5 Mg Tablet PO 5 mg QAM WARD Administration Metoprolol Succinate 25 mg 06/26/24 09:00 07/06/24 12:19 Metoprolol Succinate Ext Rel 25 Mg Tabcr PO Not Given QAM [facility] Ondansetron HCl 4 mg 06/25/24 23:05 Ondansetron Inj 4 Mg/2 Ml Vial IV PUSH Q6H PRN Nausea And Vomiting Pantoprazole Sodium 40 mg 06/26/24 09:00 07/07/24 08:32 Pantoprazole 40 Mg Tablet PO 40 mg QAM [facility] Administration Polyethylene Glycol 17 gm 07/04/24 09:00 07/07/24 08:32 Polyethylene Glycol 3350 17 Gm Powd.Pack PO Not Given QAM [facility] Sodium Zirconium Cyclosilicate 10 gm 07/02/24 16:50 07/06/24 23:21 Sodium Zirconium Cyclosilicate 10 Gm Powd.Pack PO Not Given TID@1000,1500,2200 [facility] Tamsulosin HCl 0.4 mg 06/25/24 23:10 07/06/24 20:25 Tamsulosin Hcl 0.4 Mg Capsule PO 0.4 mg QHS [facility] Administration Vitamin D 1,000 units 06/26/24 09:00 07/07/24 08:31 Cholecalciferol 1,000 Units Tablet PO 1,000 units DAILY [facility] Administration Wound Care/Dressing Products 1 patch 07/06/24 09:00 07/07/24 08:32 Hydrocolloid Dressing (Aquacel) Patch TOPICAL 1 patch DAILY [facility] Administration Radiology Results: ITS Impressions Head CT 06/24/24 18:31 IMPRESSION: Hypodensity in the left posterior temporal/occipital area which is suggestive of acute/subacute infarct with multiple hyperdensities which may be hemorrhagic areas. Calcification is less likely. MRI evaluation is advised. Physician: Manav Duarte MD Was notified with the result of the patient at time 6:45 PM on June 24, 2024. Head/Neck CTA 06/24/24 19:43 IMPRESSION: 1. Nonvisualization of the distal left posterior cerebral artery. Otherwise normal CTA of the head. 2. CTA of the neck. Shows severe calcification of the carotid arteries. Percent stenosis per NASCET criteria is 60% on the right side. 3. Bilateral pleural effusion with adjacent atelectasis versus pneumonia. Venous Doppler Study 06/26/24 12:46 IMPRESSION: 1. No deep venous thrombosis. Pulmonary Perfusion Imaging 06/26/24 13:58 IMPRESSION: 1. No immediate probability for pulmonary embolism. ADDENDUM: 07/02/24 1044 CORRECTION: There is a dictation error in the impression section. With the correction capitalized this should read- 1. INTERMEDIATE probability for pulmonary embolism. This correction was discussed with Dior Ugarte, the nurse caring for the patient, at 10:40 AM. Chest X-Ray 07/03/24 11:30 Impression: Small bilateral pleural effusions with mild bibasilar pulmonary edema/atelectasis. Stable cardiomegaly, status post CABG and aortic valve replacement, with pacemaker device. Renal Ultrasound 07/03/24 20:41 IMPRESSION: No hydronephrosis or renal calculi. Findings suggesting medical renal disease. Labs Labs: Laboratory Results - last 24 hr 07/06/24 07/06/24 07/06/24 04:18 11:55 16:54 Sodium Potassium Chloride Carbon Dioxide Anion Gap BUN Creatinine Estim Creat Clear Calc Estimated GFR Glucose POC Capillary Glucose 234 H 213 H Calcium Phosphorus Albumin Vitamin B12 > 1000.0 H Folate > 20.0 H 07/06/24 07/07/24 07/07/24 20:29 07:18 07:49 Sodium 131 L Potassium 4.6 Chloride 90 L Carbon Dioxide 32 H Anion Gap 9 BUN 130 H Creatinine 2.50 H Estim Creat Clear Calc 24 Estimated GFR 25 L Glucose 212 H POC Capillary Glucose 270 H 208 H Calcium 7.5 L Phosphorus 4.4 Albumin 3.1 L Vitamin B12 Folate
--- NOTE | 2024-07-07 09:29 | P.PNIM_ITS ---
Progress Note: A&P Assessment and Plan (1) Acute ischemic stroke: Code(s): I63.9 - Cerebral infarction, unspecified Status: Acute Assessment and Plan: * Head CT shown hypodensity in the left posterior temporal/occipital area suggestive of acute/subacute infarct with multiple hyperdensities which may be hemorrhagic areas * Head/neck CTA showed severe calcification of the carotid arteries 60% on the right side, bilateral pleural effusion with adjacent atelectasis versus pneumonia * Unable to do MRI brain due to pacemaker * Continue Aspirin, lipitor * PT/OT/ST * neurology following (2) Acute and chronic respiratory failure with hypercapnia: Code(s): J96.22 - Acute and chronic respiratory failure with hypercapnia Status: Acute Assessment and Plan: From COPD exacerbation abg 7.249/76.1/88.6/32.5 resolving continue Nighttime BiPAP S/p IV steroid per Pulmonology continue bronchodilators monitor (3) CHF (congestive heart failure): Code(s): I50.9 - Heart failure, unspecified Status: Chronic Assessment and Plan: * ProBNP greater than 30,000, patient has 4+ pitting edema to bilateral lower extremities * Troponin 0.078> 0.078> 0.070--likely demand ischemia * ECHO EF 40-45% * On Bumex and Metolazone, per nephrology * Repeat CXR showed no significant change to small to moderate-sized bilateral pleural effusions (4) Elevated d-dimer: Code(s): R79.89 - Other specified abnormal findings of blood chemistry Status: Acute Assessment and Plan: * D-dimer 1.9 * Will get V/Q scan negative for PE * Venous Doppler LE, negative (5) DM2 (diabetes mellitus, type 2): Code(s): E11.9 - Type 2 diabetes mellitus without complications Status: Chronic Assessment and Plan: * Blood sugars ranging 175-230 * Hgb A1C 5.4 on 09/03/2020 * Will recheck hemoglobin A1c * Accu checks AC/HS * High-dose SSI ordered * hypoglycemic protocol in place * Diabetic diet and 2 g sodium diet ordered (6) COPD (chronic obstructive pulmonary disease): Code(s): J44.9 - Chronic obstructive pulmonary disease, unspecified Status: Chronic Assessment and Plan: in exacerbation bronchodilators monitor (7) Hypertension: Code(s): I10 - Essential (primary) hypertension Status: Chronic Assessment and Plan: * Blood pressure ranging 102/54 to 118/72 * Continue isosorbide (8) CAD (coronary artery disease): Code(s): I25.10 - Atherosclerotic heart disease of [place] coronary artery without angina pectoris Status: Chronic Assessment and Plan: * Status post CABG x5 vessel * Continue atorvastatin (9) Pacemaker: Code(s): Z95.0 - Presence of cardiac pacemaker Status: Acute Assessment and Plan: * Ventricular pacemaker in place * EKG showed electronic ventricular pacemaker with a rate of 65, QTC 517 (10) BPH (benign prostatic hyperplasia): Code(s): N40.0 - Benign prostatic hyperplasia without lower urinary tract symptoms Status: Chronic Assessment and Plan: * Continue finasteride and tamsulosin (11) Chronic anemia: Code(s): D64.9 - Anemia, unspecified Status: Chronic Assessment and Plan: * Hemoglobin 9.4-->8.4 * Appears to be chronic * Continue ferrous sulfate * isat 15 and Ferritin 43. * IV Iron 400/1000mg * continue PO Iron (12) Sleep apnea: Code(s): G47.30 - Sleep apnea, unspecified Status: Chronic Assessment and Plan: * Patient currently requiring BiPAP due to hypercapnia Plan CHRISTIAN on CKD , worsening 1.8-2.3. Nephrology wilma noted that patient may have to have to adjust to higher Creatinine thus recommended restarting Lasix, Lasix restarted 40mg bid IV Cr 2.51-->2.68 baseline is about 1.6 Lasix on hold, given worsening fluid overload, patient may need dialysis Nephrology consulted Hyperkalemia K 5.0 Started [facility] Nephrology following iron deficiency anemia Hb 8.2, isat 15 Give 400mg IV iron continue PO Iron monitor DVT prophylaxis on SCDs, hx of hemorrhagic CVA MBS held as family is considering hospice awaiting son's arrival this evening for hospice conversation Subjective Date/time seen: 07/07/24 09:29 Interval history: Interval history: 84-year-old male with a past medical history of CAD(s/p CABG 2004,PCI 2005), HFrEF (EF 45-50% 05/2024), s/p [employer]OR[employer] MACHINE and ICD,CKD4, HTN, COPD(2L) ,AFUA,CVA,T2DM,A.Fib, (s/p Bio AVR 2013),rib fracture(2023), and urothelial ca. 07/07: Pending hospice evaluation Review of Systems Review of Systems: All systems reviewed & are unremarkable except as noted in HPI and below Exam Narrative: General: In no acute distress, well nourished Head: atraumatic, no encephalopathy Eyes: PERRLA, sclera clear ENT: moist mucous membranes, nasal passages clear Neck: supple, no JVD, no adenopathy, trachea midline Cardiac: Normal S1 and S2. No murmur, gallops or friction rubs, peripheral pulses intact. Respiratory:Inspiratory and expiratory wheezing, no other adventitious lung sounds, currently on nasal cannula with use of accessory muscles and acute respiratory distress. Gastrointestinal: soft, non-distended, non-tender, normoactive bowel sounds. : voiding without difficulty. Extremities:BUE with good hand soft drink powder mixer 4/5 bilaterally, 4+ pitting edema to bilateral lower extremities Skin: clean, dry, intact. No wounds or lesions. Neuro: Alert and oriented x4, cranial nerves intact, LUE weakness Psych: normal mood, normal affect, interactive Objective Data Vital Signs Vital Signs: Vital Signs - 24 hr 07/06/24 10:00 07/06/24 11:17 07/06/24 11:17 Temperature Pulse Rate 65 60 60 Respiratory Rate 22 H 22 H Blood Pressure Pulse Oximetry 98 Oxygen Delivery BiPAP Oxygen Flow Rate Fraction of Inspired Oxygen 07/06/24 11:24 07/06/24 12:00 07/06/24 12:00 Temperature 97.5 F L Pulse Rate 60 59 L Respiratory Rate 20 28 H Blood Pressure 110/84 Pulse Oximetry 96 98 Oxygen Delivery BiPAP Oxygen Flow Rate Fraction of Inspired Oxygen 07/06/24 12:00 07/06/24 14:00 07/06/24 15:35 Temperature Pulse Rate 60 60 Respiratory Rate Blood Pressure Pulse Oximetry 100 Oxygen Delivery Nasal Cannula Oxygen Flow Rate 2 Fraction of Inspired Oxygen 07/06/24 15:35 07/06/24 15:42 07/06/24 16:00 Temperature 97.5 F L Pulse Rate 60 60 58 L Respiratory Rate 20 20 24 H Blood Pressure 93/40 L Pulse Oximetry 100 Oxygen Delivery Oxygen Flow Rate Fraction of Inspired Oxygen 07/06/24 16:00 07/06/24 18:00 07/06/24 18:00 Temperature Pulse Rate 60 70 69 Respiratory Rate 17 Blood Pressure 97/71 L Pulse Oximetry 98 Oxygen Delivery Oxygen Flow Rate Fraction of Inspired Oxygen 07/06/24 19:58 07/06/24 20:00 07/06/24 20:00 Temperature Pulse Rate 60 60 Respiratory Rate 20 18 Blood Pressure 103/34 L Pulse Oximetry 100 96 Oxygen Delivery BiPAP Oxygen Flow Rate Fraction of Inspired Oxygen 28 07/06/24 20:00 07/06/24 20:01 07/06/24 20:06 Temperature Pulse Rate 60 60 Respiratory Rate 20 Blood Pressure Pulse Oximetry 98 Oxygen Delivery Nasal Cannula Oxygen Flow Rate 2 Fraction of Inspired Oxygen 28 07/06/24 20:50 07/06/24 22:00 07/07/24 00:00 Temperature Pulse Rate 60 60 Respiratory Rate 21 H Blood Pressure Pulse Oximetry 97 98 Oxygen Delivery BiPAP BiPAP Oxygen Flow Rate Fraction of Inspired Oxygen 28 07/07/24 00:00 07/07/24 00:00 07/07/24 00:21 Temperature Pulse Rate 61 60 62 Respiratory Rate 18 21 H Blood Pressure 122/40 L Pulse Oximetry 99 Oxygen Delivery Oxygen Flow Rate Fraction of Inspired Oxygen 07/07/24 00:30 07/07/24 02:00 07/07/24 03:30 Temperature Pulse Rate 60 60 60 Respiratory Rate 21 H 21 H Blood Pressure Pulse Oximetry 96 Oxygen Delivery BiPAP Oxygen Flow Rate Fraction of Inspired Oxygen 07/07/24 04:00 07/07/24 04:00 07/07/24 04:00 Temperature Pulse Rate 61 60 Respiratory Rate 18 Blood Pressure 121/44 L Pulse Oximetry 96 98 Oxygen Delivery BiPAP Oxygen Flow Rate Fraction of Inspired Oxygen 28 07/07/24 04:49 07/07/24 04:56 07/07/24 05:36 Temperature Pulse Rate 60 60 60 Respiratory Rate 21 H 20 Blood Pressure Pulse Oximetry Oxygen Delivery Oxygen Flow Rate Fraction of Inspired Oxygen 07/07/24 08:00 07/07/24 08:03 07/07/24 08:03 Temperature 98.1 F Pulse Rate 60 60 Respiratory Rate 24 H 20 Blood Pressure 96/54 L Pulse Oximetry 95 92 Oxygen Delivery Nasal Cannula Oxygen Flow Rate 2 Fraction of Inspired Oxygen Intake/Output Intake/Output: Intake & Output 07/04/24 07/05/24 07/06/24 07/07/24 23:59 23:59 23:59 23:59 Intake Total 4636 153 3802.7 1290 Output Total 950 700 550 350 Balance 570 -60 1411.7 940 Meds/Results Medications: Active Medications Generic Name Dose Route Start Last Admin Trade Name Freq PRN Reason Stop Dose Admin Acetaminophen 650 mg 06/25/24 23:05 07/03/24 17:50 Acetaminophen 325 Mg Tablet PO 650 mg Q4H PRN Administration Mild Pain (1-3) or Fever Albuterol/Ipratropium 3 ml 07/02/24 13:50 07/07/24 08:03 Ipratropium 0.5 Mg/Albuterol Sulfate 2.5 Mg Ampul.Neb 3 Ml INHALATION 3 ml Q4HRT WARD Administration Aspirin 81 mg 07/01/24 09:00 07/07/24 08:31 Aspirin 81 Mg Enteric Tablet PO 81 mg QAM WARD Administration Atorvastatin Calcium 40 mg 06/25/24 23:10 07/06/24 20:25 Atorvastatin 40 Mg Tablet PO 40 mg HS WARD Administration Bumetanide 2 mg 07/05/24 11:55 07/06/24 16:49 Bumetanide Inj 2.5 Mg/10 Ml Vial IV PUSH 2 mg BID WARD Administration Cyanocobalamin 1,000 mcg 06/26/24 09:00 07/07/24 08:31 Cyanocobalamin 1,000 Mcg Tablet PO 1,000 mcg DAILY WARD Administration Dextrose 12.5 gm 06/26/24 04:23 Dextrose 50% 25 Gm/50 Ml Syringe IV PUSH PRN PRN Hypoglycemia Protocol Epoetin Edwin-epbx 10,000 units 07/04/24 09:00 07/07/24 08:38 Epoetin Edwin-Epbx 10,000 Units/Ml Vial SUB-Q 10,000 units TUTHSA@09 WARD Administration Ferrous Sulfate 325 mg 06/26/24 09:00 07/07/24 08:31 Ferrous Sulfate [address] PO 325 mg BID WARD Administration Finasteride 5 mg 06/26/24 09:00 07/07/24 08:31 Finasteride 5 Mg Tablet PO 5 mg DAILY WARD Administration Folic Acid 1 mg 06/26/24 09:00 07/07/24 08:31 Folic Acid 1 Mg Tablet PO 1 mg DAILY WARD Administration Glucagon 1 mg 06/26/24 04:23 Glucagon For Inj 1 Mg Vial IM PRN PRN Hypoglycemia Protocol Glucose 15 gm 06/26/24 04:23 Glucose Oral Gel 15 Gm Of Glucse In 37.5 Gm Tube PO PRN PRN Hypoglycemia Protocol Dextrose 1,000 mls @ 100 mls/hr 06/26/24 04:23 Dextrose 5% 1,000 Ml IVPB PRN PRN Hypoglycemia Protocol Sodium Chloride 1,000 mls @ 50 mls/hr 07/05/24 13:25 07/07/24 06:06 Normal Saline Iv IV CONT 50 mls/hr .Q20H WARD Administration Insulin Aspart 4 - 8 units 06/26/24 08:00 07/07/24 08:30 Insulin Aspart (*Bkc) 100 Units/Ml SUB-Q 4 units TIDWM WARD Administration Protocol Insulin Aspart 2 - 4 units 06/26/24 21:00 07/06/24 22:00 Insulin Aspart (*Bkc) 100 Units/Ml SUB-Q 2 units HS WARD Administration Protocol Insulin Glargine 8 units 06/28/24 21:00 07/06/24 22:00 Insulin Glargine (*Bkc) 100 Units/Ml SUB-Q 8 units HS WARD Administration Isosorbide Mononitrate 15 mg 07/03/24 09:00 07/06/24 16:48 Isosorbide Mononitrate 15 Mg Tab.Er.24h PO 15 mg BID@0900,1600 WARD Administration Metolazone 5 mg 07/05/24 11:55 07/07/24 08:31 Metolazone 5 Mg Tablet PO 5 mg QAM WARD Administration Metoprolol Succinate 25 mg 06/26/24 09:00 07/06/24 12:19 Metoprolol Succinate Ext Rel 25 Mg Tabcr PO Not Given QAM WARD Ondansetron HCl 4 mg 06/25/24 23:05 Ondansetron Inj 4 Mg/2 Ml Vial IV PUSH Q6H PRN Nausea And Vomiting Pantoprazole Sodium 40 mg 06/26/24 09:00 07/07/24 08:32 Pantoprazole 40 Mg Tablet PO 40 mg QAM WARD Administration Polyethylene Glycol 17 gm 07/04/24 09:00 07/07/24 08:32 Polyethylene Glycol 3350 17 Gm Powd.Pack PO Not Given QAM WARD Sodium Zirconium Cyclosilicate 10 gm 07/02/24 16:50 07/06/24 23:21 Sodium Zirconium Cyclosilicate 10 Gm Powd.Pack PO Not Given TID@1000,1500,2200 WARD Tamsulosin HCl 0.4 mg 06/25/24 23:10 07/06/24 20:25 Tamsulosin Hcl 0.4 Mg Capsule PO 0.4 mg QHS WARD Administration Vitamin D 1,000 units 06/26/24 09:00 07/07/24 08:31 Cholecalciferol 1,000 Units Tablet PO 1,000 units DAILY WARD Administration Wound Care/Dressing Products 1 patch 07/06/24 09:00 07/07/24 08:32 Hydrocolloid Dressing (Aquacel) Patch TOPICAL 1 patch DAILY WARD Administration Radiology Results: ITS Impressions Head CT 06/24/24 18:31 IMPRESSION: Hypodensity in the left posterior temporal/occipital area which is suggestive of acute/subacute infarct with multiple hyperdensities which may be hemorrhagic areas. Calcification is less likely. MRI evaluation is advised. Physician: Manav Duarte MD Was notified with the result of the patient at time 6:45 PM on June 24, 2024. Head/Neck CTA 06/24/24 19:43 IMPRESSION: 1. Nonvisualization of the distal left posterior cerebral artery. Otherwise normal CTA of the head. 2. CTA of the neck. Shows severe calcification of the carotid arteries. Percent stenosis per NASCET criteria is 60% on the right side. 3. Bilateral pleural effusion with adjacent atelectasis versus pneumonia. Venous Doppler Study 06/26/24 12:46 IMPRESSION: 1. No deep venous thrombosis. Pulmonary Perfusion Imaging 06/26/24 13:58 IMPRESSION: 1. No immediate probability for pulmonary embolism. ADDENDUM: 07/02/24 1044 CORRECTION: There is a dictation error in the impression section. With the correction capitalized this should read- 1. INTERMEDIATE probability for pulmonary embolism. This correction was discussed with Dior Ugarte, the nurse caring for the patient, at 10:40 AM. Chest X-Ray 07/03/24 11:30 Impression: Small bilateral pleural effusions with mild bibasilar pulmonary edema/atelectasis. Stable cardiomegaly, status post CABG and aortic valve replacement, with pacemaker device. Renal Ultrasound 07/03/24 20:41 IMPRESSION: No hydronephrosis or renal calculi. Findings suggesting medical renal disease. Labs Labs: Laboratory Results - last 24 hr 07/06/24 07/06/24 07/06/24 04:18 11:55 16:54 Sodium Potassium Chloride Carbon Dioxide Anion Gap BUN Creatinine Estim Creat Clear Calc Estimated GFR Glucose POC Capillary Glucose 234 H 213 H Calcium Phosphorus Albumin Vitamin B12 > 1000.0 H Folate > 20.0 H 07/06/24 07/07/24 07/07/24 20:29 07:18 07:49 Sodium 131 L Potassium 4.6 Chloride 90 L Carbon Dioxide 32 H Anion Gap 9 BUN 130 H Creatinine 2.50 H Estim Creat Clear Calc 24 Estimated GFR 25 L Glucose 212 H POC Capillary Glucose 270 H 208 H Calcium 7.5 L Phosphorus 4.4 Albumin 3.1 L Vitamin B12 Folate Quality VTE Prophylaxis VTE prophylaxis: mechanical ordered Hospitalist MIPS Advance Care Plan I have confirmed that the patient's Advanced Care Plan is present, code status is documented, or surrogate decision maker is listed in patient medical record.: Yes Medication Reconciliation I have utilized all available resources to obtain, update and review the patients current medications (includes all prescriptions, OTC, herbals, cannabis, and nutritional supplements).: Yes
[2024-07-07] MEDS: BUMETANIDE INJ 2.5 MG/10 ML VIAL 2 MG IV PUSH ×2 (10:38→16:40)
[2024-07-07] MEDS: ISOSORBIDE MONONITRATE 15 MG TAB.ER.24H PO ×2 (10:38→18:18)
[2024-07-07] MEDS: guaiFENesin 12 HR 600 MG TABCR 1200 MG PO ×2 (10:38→20:51)
[2024-07-07] MEDS: METOPROLOL SUCCINATE EXT REL 12.5 MG TABCR PO (11:03)
[2024-07-07 11:45] LABS: Glucose Point of Care 295 mg/dl (65-105)
[2024-07-07 15:53] LABS: Glucose Point of Care 289 mg/dl (65-105)
[2024-07-07] MEDS: SODIUM ZIRCONIUM CYCLOSILICATE 10 GM POWD.PACK PO (16:16)
[2024-07-07 20:16] LABS: Glucose Point of Care 245 mg/dl (65-105)
[2024-07-07] MEDS: INSULIN GLARGINE (*BKC) 100 UNITS/ML 8 UNITS SUB-Q (20:51)
[2024-07-07] MEDS: ATORVASTATIN 40 MG TABLET PO (20:51)
[2024-07-07] MEDS: TAMSULOSIN HCL 0.4 MG CAPSULE PO (20:52)
[2024-07-08] VITALS (26 sets, daily range): BP systolic 88–120; BP diastolic 38–66; PULSE 58–71; RESP 13–24; TEMP 36.2–36.6; O2SAT 94–100
[2024-07-08] MEDS: IPRATROPIUM 0.5 MG/ALBUTEROL SULFATE 2.5 MG AMPUL.NEB 3 ML INHALATION ×7 (01:10→23:01)
[2024-07-08 07:40] LABS: Glucose Point of Care 141 mg/dl (65-105)
--- NOTE | 2024-07-08 08:00 | P.PNIM_ITS ---
Progress Note: A&P Assessment and Plan (1) Acute ischemic stroke: Code(s): I63.9 - Cerebral infarction, unspecified Status: Acute Assessment and Plan: * Head CT shown hypodensity in the left posterior temporal/occipital area suggestive of acute/subacute infarct with multiple hyperdensities which may be hemorrhagic areas * Head/neck CTA showed severe calcification of the carotid arteries 60% on the right side, bilateral pleural effusion with adjacent atelectasis versus pneumonia * Unable to do MRI brain due to pacemaker * Continue Aspirin, lipitor * PT/OT/ST * neurology following (2) Acute and chronic respiratory failure with hypercapnia: Code(s): J96.22 - Acute and chronic respiratory failure with hypercapnia Status: Acute Assessment and Plan: From COPD exacerbation abg 7.249/76.1/88.6/32.5 resolving continue Nighttime BiPAP S/p IV steroid per Pulmonology continue bronchodilators monitor (3) CHF (congestive heart failure): Code(s): I50.9 - Heart failure, unspecified Status: Chronic Assessment and Plan: * ProBNP greater than 30,000, patient has 4+ pitting edema to bilateral lower extremities * Troponin 0.078> 0.078> 0.070--likely demand ischemia * ECHO EF 40-45% * On Bumex and Metolazone, per nephrology * Repeat CXR showed no significant change to small to moderate-sized bilateral pleural effusions (4) Elevated d-dimer: Code(s): R79.89 - Other specified abnormal findings of blood chemistry Status: Acute Assessment and Plan: * D-dimer 1.9 * Will get V/Q scan negative for PE * Venous Doppler LE, negative (5) DM2 (diabetes mellitus, type 2): Code(s): E11.9 - Type 2 diabetes mellitus without complications Status: Chronic Assessment and Plan: * Blood sugars ranging 175-230 * Hgb A1C 5.4 on 09/03/2020 * Will recheck hemoglobin A1c * Accu checks AC/HS * High-dose SSI ordered * hypoglycemic protocol in place * Diabetic diet and 2 g sodium diet ordered (6) COPD (chronic obstructive pulmonary disease): Code(s): J44.9 - Chronic obstructive pulmonary disease, unspecified Status: Chronic Assessment and Plan: in exacerbation bronchodilators monitor (7) Hypertension: Code(s): I10 - Essential (primary) hypertension Status: Chronic Assessment and Plan: * Blood pressure ranging 102/54 to 118/72 * Continue isosorbide (8) CAD (coronary artery disease): Code(s): I25.10 - Atherosclerotic heart disease of [place] coronary artery without angina pectoris Status: Chronic Assessment and Plan: * Status post CABG x5 vessel * Continue atorvastatin (9) Pacemaker: Code(s): Z95.0 - Presence of cardiac pacemaker Status: Acute Assessment and Plan: * Ventricular pacemaker in place * EKG showed electronic ventricular pacemaker with a rate of 65, QTC 517 (10) BPH (benign prostatic hyperplasia): Code(s): N40.0 - Benign prostatic hyperplasia without lower urinary tract symptoms Status: Chronic Assessment and Plan: * Continue finasteride and tamsulosin (11) Chronic anemia: Code(s): D64.9 - Anemia, unspecified Status: Chronic Assessment and Plan: * Hemoglobin 9.4-->8.4 * Appears to be chronic * Continue ferrous sulfate * isat 15 and Ferritin 43. * IV Iron 400/1000mg * continue PO Iron (12) Sleep apnea: Code(s): G47.30 - Sleep apnea, unspecified Status: Chronic Assessment and Plan: * Patient currently requiring BiPAP due to hypercapnia Plan CHRISTIAN on CKD , worsening 1.8-2.3. Nephrology wilma noted that patient may have to have to adjust to higher Creatinine thus recommended restarting Lasix, Lasix restarted 40mg bid IV Cr 2.51-->2.68 baseline is about 1.6 Lasix on hold, given worsening fluid overload, patient may need dialysis Nephrology consulted Hyperkalemia K 5.0 Started [facility] following iron deficiency anemia Hb 8.2, isat 15 Give 400mg IV iron continue PO Iron monitor DVT prophylaxis on SCDs, hx of hemorrhagic CVA MBS held as family is considering hospice awaiting son's arrival this evening for hospice conversation Subjective Date/time seen: 07/08/24 08:00 Interval history: Discussed with who is the POA and patient both wanted comfort care.Pending hospice consult Review of Systems Review of Systems: All systems reviewed & are unremarkable except as noted in HPI and below Exam Narrative: General: In no acute distress, well nourished Head: atraumatic, no encephalopathy Eyes: PERRLA, sclera clear ENT: moist mucous membranes, nasal passages clear Neck: supple, no JVD, no adenopathy, trachea midline Cardiac: Normal S1 and S2. No murmur, gallops or friction rubs, peripheral pulses intact. Respiratory:Inspiratory and expiratory wheezing, no other adventitious lung sounds, currently on nasal cannula with use of accessory muscles and acute respiratory distress. Gastrointestinal: soft, non-distended, non-tender, normoactive bowel sounds. : voiding without difficulty. Extremities:BUE with good hand loan service officer 4/5 bilaterally, 4+ pitting edema to bilateral lower extremities Skin: clean, dry, intact. No wounds or lesions. Neuro: Alert and oriented x4, cranial nerves intact, LUE weakness Psych: normal mood, normal affect, interactive Objective Data Vital Signs Vital Signs: Vital Signs - 24 hr 07/07/24 08:03 07/07/24 08:03 07/07/24 10:00 Temperature Pulse Rate 60 60 Respiratory Rate 20 Blood Pressure Pulse Oximetry 92 Oxygen Delivery Nasal Cannula Oxygen Flow Rate 2 Fraction of Inspired Oxygen 07/07/24 10:24 07/07/24 11:03 07/07/24 12:00 Temperature 97.6 F Pulse Rate 60 60 Respiratory Rate 28 H Blood Pressure 126/43 L 102/61 Pulse Oximetry 100 Oxygen Delivery Oxygen Flow Rate Fraction of Inspired Oxygen 07/07/24 12:00 07/07/24 12:55 07/07/24 14:00 Temperature Pulse Rate 70 60 60 Respiratory Rate 22 H Blood Pressure Pulse Oximetry Oxygen Delivery Oxygen Flow Rate Fraction of Inspired Oxygen 07/07/24 16:00 07/07/24 16:00 07/07/24 19:34 Temperature 98.1 F 97.7 F Pulse Rate 71 76 73 Respiratory Rate 24 H 16 Blood Pressure 131/43 L 122/51 L Pulse Oximetry 100 100 Oxygen Delivery Oxygen Flow Rate Fraction of Inspired Oxygen 07/07/24 20:00 07/07/24 20:00 07/07/24 20:18 Temperature Pulse Rate 60 60 62 Respiratory Rate 16 26 H Blood Pressure Pulse Oximetry 100 98 Oxygen Delivery Nasal Cannula Nasal Cannula Oxygen Flow Rate 2 Fraction of Inspired Oxygen 07/07/24 20:18 07/07/24 20:18 07/07/24 20:24 Temperature Pulse Rate 62 60 Respiratory Rate 26 H 21 H Blood Pressure Pulse Oximetry 98 Oxygen Delivery BiPAP Oxygen Flow Rate Fraction of Inspired Oxygen 28 07/07/24 22:00 07/07/24 23:34 07/08/24 01:10 Temperature 97.7 F Pulse Rate 60 62 60 Respiratory Rate 18 19 Blood Pressure 103/40 L Pulse Oximetry 100 100 Oxygen Delivery Oxygen Flow Rate Fraction of Inspired Oxygen 07/08/24 01:14 07/08/24 03:41 07/08/24 03:46 Temperature Pulse Rate 60 62 60 Respiratory Rate 19 21 H 21 H Blood Pressure Pulse Oximetry Oxygen Delivery Oxygen Flow Rate Fraction of Inspired Oxygen 07/08/24 04:00 07/08/24 04:00 07/08/24 04:00 Temperature 97.6 F Pulse Rate 60 60 62 Respiratory Rate 21 H 16 Blood Pressure 111/41 L Pulse Oximetry 100 99 Oxygen Delivery BiPAP Oxygen Flow Rate Fraction of Inspired Oxygen 07/08/24 07:57 Temperature 97.5 F L Pulse Rate 60 Respiratory Rate 20 Blood Pressure 96/38 L Pulse Oximetry 100 Oxygen Delivery Oxygen Flow Rate Fraction of Inspired Oxygen Intake/Output Intake/Output: Intake & Output 07/05/24 07/06/24 07/07/24 07/08/24 23:59 23:59 23:59 23:59 Intake Total 640 1961.7 2010 250 Output Total 700 070 905 8202 Balance -60 1411.7 1460 -850 Meds/Results Medications: Active Medications Generic Name Dose Route Start Last Admin Trade Name Freq PRN Reason Stop Dose Admin Acetaminophen 650 mg 06/25/24 23:05 07/03/24 17:50 Acetaminophen 325 Mg Tablet PO 650 mg Q4H PRN Administration Mild Pain (1-3) or Fever Albuterol/Ipratropium 3 ml 07/02/24 13:50 07/08/24 03:41 Ipratropium 0.5 Mg/Albuterol Sulfate 2.5 Mg Ampul.Neb 3 Ml INHALATION 3 ml Q4HRT WARD Administration Aspirin 81 mg 07/01/24 09:00 07/07/24 08:31 Aspirin 81 Mg Enteric Tablet PO 81 mg QAM WARD Administration Atorvastatin Calcium 40 mg 06/25/24 23:10 07/07/24 20:51 Atorvastatin 40 Mg Tablet PO 40 mg HS WARD Administration Bumetanide 2 mg 07/05/24 11:55 07/07/24 16:40 Bumetanide Inj 2.5 Mg/10 Ml Vial IV PUSH 2 mg BID WARD Administration Cyanocobalamin 1,000 mcg 06/26/24 09:00 07/07/24 08:31 Cyanocobalamin 1,000 Mcg Tablet PO 1,000 mcg DAILY WARD Administration Dextrose 12.5 gm 06/26/24 04:23 Dextrose 50% 25 Gm/50 Ml Syringe IV PUSH PRN PRN Hypoglycemia Protocol Epoetin Edwin-epbx 10,000 units 07/04/24 09:00 07/07/24 08:38 Epoetin Edwin-Epbx 10,000 Units/Ml Vial SUB-Q 10,000 units TUTHSA@09 WARD Administration Ferrous Sulfate 325 mg 06/26/24 09:00 07/07/24 18:18 Ferrous Sulfate [address] PO 325 mg BID WARD Administration Finasteride 5 mg 06/26/24 09:00 07/07/24 08:31 Finasteride 5 Mg Tablet PO 5 mg DAILY WARD Administration Folic Acid 1 mg 06/26/24 09:00 07/07/24 08:31 Folic Acid 1 Mg Tablet PO 1 mg DAILY WARD Administration Glucagon 1 mg 06/26/24 04:23 Glucagon For Inj 1 Mg Vial IM PRN PRN Hypoglycemia Protocol Glucose 15 gm 06/26/24 04:23 Glucose Oral Gel 15 Gm Of Glucse In 37.5 Gm Tube PO PRN PRN Hypoglycemia Protocol Guaifenesin 1,200 mg 07/07/24 09:40 07/07/24 20:51 Guaifenesin 12 Hr 600 Mg Tabcr PO 1,200 mg Q12HR WARD Administration Dextrose 1,000 mls @ 100 mls/hr 06/26/24 04:23 Dextrose 5% 1,000 Ml IVPB PRN PRN Hypoglycemia Protocol Insulin Aspart 4 - 8 units 06/26/24 08:00 07/07/24 16:39 Insulin Aspart (*Bkc) 100 Units/Ml SUB-Q 5 units TIDWM WARD Administration Protocol Insulin Aspart 2 - 4 units 06/26/24 21:00 07/07/24 20:51 Insulin Aspart (*Bkc) 100 Units/Ml SUB-Q 2 units HS WARD Administration Protocol Insulin Glargine 8 units 06/28/24 21:00 07/07/24 20:51 Insulin Glargine (*Bkc) 100 Units/Ml SUB-Q 8 units HS WARD Administration Isosorbide Mononitrate 15 mg 07/03/24 09:00 07/07/24 18:18 Isosorbide Mononitrate 15 Mg Tab.Er.24h PO 15 mg BID@0900,1600 WARD Administration Metolazone 5 mg 07/05/24 11:55 07/07/24 08:31 Metolazone 5 Mg Tablet PO 5 mg QAM WARD Administration Metoprolol Succinate 12.5 mg 07/07/24 10:45 07/07/24 11:03 Metoprolol Succinate Ext Rel 12.5 Mg Tabcr PO 12.5 mg QAM WARD Administration Ondansetron HCl 4 mg 06/25/24 23:05 Ondansetron Inj 4 Mg/2 Ml Vial IV PUSH Q6H PRN Nausea And Vomiting Pantoprazole Sodium 40 mg 06/26/24 09:00 07/07/24 08:32 Pantoprazole 40 Mg Tablet PO 40 mg QAM WARD Administration Polyethylene Glycol 17 gm 07/04/24 09:00 07/07/24 08:32 Polyethylene Glycol 3350 17 Gm Powd.Pack PO Not Given QAM WARD Sodium Zirconium Cyclosilicate 10 gm 07/07/24 23:00 07/08/24 04:13 Sodium Zirconium Cyclosilicate 10 Gm Powd.Pack PO Not Given 0600,1200,2300 WARD Tamsulosin HCl 0.4 mg 06/25/24 23:10 07/07/24 20:52 Tamsulosin Hcl 0.4 Mg Capsule PO 0.4 mg QHS WARD Administration Vitamin D 1,000 units 06/26/24 09:00 07/07/24 08:31 Cholecalciferol 1,000 Units Tablet PO 1,000 units DAILY WARD Administration Wound Care/Dressing Products 1 patch 07/06/24 09:00 07/07/24 08:32 Hydrocolloid Dressing (Aquacel) Patch TOPICAL 1 patch DAILY WARD Administration Radiology Results: ITS Impressions Head CT 06/24/24 18:31 IMPRESSION: Hypodensity in the left posterior temporal/occipital area which is suggestive of acute/subacute infarct with multiple hyperdensities which may be hemorrhagic areas. Calcification is less likely. MRI evaluation is advised. Physician: Manav Duarte MD Was notified with the result of the patient at time 6:45 PM on June 24, 2024. Head/Neck CTA 06/24/24 19:43 IMPRESSION: 1. Nonvisualization of the distal left posterior cerebral artery. Otherwise normal CTA of the head. 2. CTA of the neck. Shows severe calcification of the carotid arteries. Percent stenosis per NASCET criteria is 60% on the right side. 3. Bilateral pleural effusion with adjacent atelectasis versus pneumonia. Venous Doppler Study 06/26/24 12:46 IMPRESSION: 1. No deep venous thrombosis. Pulmonary Perfusion Imaging 06/26/24 13:58 IMPRESSION: 1. No immediate probability for pulmonary embolism. ADDENDUM: 07/02/24 1044 CORRECTION: There is a dictation error in the impression section. With the correction capitalized this should read- 1. INTERMEDIATE probability for pulmonary embolism. This correction was discussed with Dior Ugarte, the nurse caring for the patient, at 10:40 AM. Chest X-Ray 07/03/24 11:30 Impression: Small bilateral pleural effusions with mild bibasilar pulmonary edema/atelectasis. Stable cardiomegaly, status post CABG and aortic valve replacement, with pacemaker device. Renal Ultrasound 07/03/24 20:41 IMPRESSION: No hydronephrosis or renal calculi. Findings suggesting medical renal disease. Labs Labs: Laboratory Results - last 24 hr 07/07/24 07/07/24 07/07/24 07:18 11:32 15:37 BUN 130 H POC Capillary Glucose 295 H 289 H 07/07/24 07/08/24 20:06 07:14 BUN POC Capillary Glucose 245 H 141 H Quality VTE Prophylaxis VTE prophylaxis: mechanical ordered Hospitalist [facility] Advance Care Plan I have confirmed that the patient's Advanced Care Plan is present, code status is documented, or surrogate decision maker is listed in patient medical record.: Yes Medication Reconciliation I have utilized all available resources to obtain, update and review the patients current medications (includes all prescriptions, OTC, herbals, cannabis, and nutritional supplements).: Yes
[2024-07-08] MEDS: METOPROLOL SUCCINATE EXT REL 12.5 MG TABCR PO (09:18)
[2024-07-08] MEDS: FINASTERIDE 5 MG TABLET PO (09:19)
[2024-07-08] MEDS: metOLazone 5 MG TABLET PO (09:19)
[2024-07-08] MEDS: ASPIRIN 81 MG ENTERIC TABLET PO (09:19)
[2024-07-08] MEDS: PANTOPRAZOLE 40 MG TABLET PO (09:19)
[2024-07-08] MEDS: guaiFENesin 12 HR 600 MG TABCR 1200 MG PO ×2 (09:19→21:47)
[2024-07-08] MEDS: CYANOCOBALAMIN 1,000 MCG TABLET 1000 MCG PO (09:19)
[2024-07-08] MEDS: FERROUS SULFATE 325 MG TABLET DR PO (09:19)
[2024-07-08] MEDS: FOLIC ACID 1 MG TABLET PO (09:19)
[2024-07-08] MEDS: ISOSORBIDE MONONITRATE 15 MG TAB.ER.24H PO ×2 (09:19→17:29)
[2024-07-08] MEDS: CHOLECALCIFEROL 1,000 UNITS TABLET 1000 UNITS PO (09:19)
[2024-07-08] MEDS: HYDROCOLLOID DRESSING 1 PATCH TOPICAL (09:20)
[2024-07-08] MEDS: BUMETANIDE INJ 2.5 MG/10 ML VIAL 2 MG IV PUSH (09:20)
[2024-07-08 11:40] LABS: Glucose Point of Care 195 mg/dl (65-105)
[2024-07-08] MEDS: LORazepam INJ (*CRX) 2 MG/ML VIAL 0.5 MG IV PUSH ×2 (13:04→21:48)
[2024-07-08 15:58] LABS: Glucose Point of Care 284 mg/dl (65-105)
[2024-07-08 17:36] LABS: Glucose Point of Care 340 mg/dl (65-105)
[2024-07-08] MEDS: INSULIN ASPART (*BKC) 100 UNITS/ML SUB-Q ×2 (17:36→21:48)
--- NOTE | 2024-07-08 18:49 | PC.NURSE ---
This patient, Jessica Wallace, was transferred to [ [facility]] on 07/08/24 at 1840. Personal belongings sent with patient. Report given to [todd]. Appropriate documentation sent with patient.
--- NOTE | 2024-07-08 18:50 | PC.NURSE ---
This patient, Jessica Wallace, was received from [[id number]] on 07/08/24 at 1845. Patient/family oriented to unit policies and routines
[2024-07-08 20:03] LABS: Glucose Point of Care 314 mg/dl (65-105)
[2024-07-08] MEDS: ACETAMINOPHEN 325 MG TABLET 650 MG PO (21:47)
[2024-07-08] MEDS: TAMSULOSIN HCL 0.4 MG CAPSULE PO (21:47)
[2024-07-08] MEDS: INSULIN GLARGINE (*BKC) 100 UNITS/ML 8 UNITS SUB-Q (21:48)
[2024-07-09 03:04] VITALS: PULSE 60; RESP 16; O2SAT 94
[2024-07-09] MEDS: IPRATROPIUM 0.5 MG/ALBUTEROL SULFATE 2.5 MG AMPUL.NEB 3 ML INHALATION (03:04)
[2024-07-09 03:14] VITALS: PULSE 60; RESP 16
[2024-07-09 05:52] VITALS: BP 105/42; PULSE 60; RESP 16; TEMP 36.2; O2SAT 95
[2024-07-09 08:00] VITALS: PULSE 60; RESP 16; O2SAT 95
[2024-07-09] MEDS: PANTOPRAZOLE 40 MG TABLET PO (09:06)
[2024-07-09] MEDS: polyethylene glycoL 3350 17 GM POWD.PACK PO (09:06)
[2024-07-09] MEDS: guaiFENesin 12 HR 600 MG TABCR 1200 MG PO (09:06)
[2024-07-09] MEDS: metOLazone 5 MG TABLET PO (09:06)
[2024-07-09] MEDS: ISOSORBIDE MONONITRATE 15 MG TAB.ER.24H PO (09:06)
[2024-07-09] MEDS: FINASTERIDE 5 MG TABLET PO (09:06)
[2024-07-09] MEDS: INSULIN ASPART (*BKC) 100 UNITS/ML SUB-Q (09:10)
--- NOTE | 2024-07-10 17:58 | P.DS_ITS ---
DS: Admitting Diagnosis Discharge Date 07/09/24 Admitting Diagnosis Altered mental status DS: Discharge Diagnosis Discharge Diagnosis (1) Acute ischemic stroke: Code(s): I63.9 - Cerebral infarction, unspecified Status: Acute Assessment and Plan: * Head CT shown hypodensity in the left posterior temporal/occipital area suggestive of acute/subacute infarct with multiple hyperdensities which may be hemorrhagic areas * Head/neck CTA showed severe calcification of the carotid arteries 60% on the right side, bilateral pleural effusion with adjacent atelectasis versus pneumonia * Unable to do MRI brain due to pacemaker * Continue Aspirin, lipitor * PT/OT/ST * neurology following (2) Acute and chronic respiratory failure with hypercapnia: Code(s): J96.22 - Acute and chronic respiratory failure with hypercapnia Status: Acute Assessment and Plan: From COPD exacerbation abg 7.249/76.1/88.6/32.5 resolving continue Nighttime BiPAP S/p IV steroid per Pulmonology continue bronchodilators monitor (3) CHF (congestive heart failure): Code(s): I50.9 - Heart failure, unspecified Status: Chronic Assessment and Plan: * ProBNP greater than 30,000, patient has 4+ pitting edema to bilateral lower extremities * Troponin 0.078> 0.078> 0.070--likely demand ischemia * ECHO EF 40-45% * On Bumex and Metolazone, per nephrology * Repeat CXR showed no significant change to small to moderate-sized bilateral pleural effusions (4) Elevated d-dimer: Code(s): R79.89 - Other specified abnormal findings of blood chemistry Status: Acute Assessment and Plan: * D-dimer 1.9 * Will get V/Q scan negative for PE * Venous Doppler LE, negative (5) DM2 (diabetes mellitus, type 2): Code(s): E11.9 - Type 2 diabetes mellitus without complications Status: Chronic Assessment and Plan: * Blood sugars ranging 175-230 * Hgb A1C 5.4 on 09/03/2020 * Will recheck hemoglobin A1c * Accu checks AC/HS * High-dose SSI ordered * hypoglycemic protocol in place * Diabetic diet and 2 g sodium diet ordered (6) COPD (chronic obstructive pulmonary disease): Code(s): J44.9 - Chronic obstructive pulmonary disease, unspecified Status: Chronic Assessment and Plan: in exacerbation bronchodilators monitor (7) Hypertension: Code(s): I10 - Essential (primary) hypertension Status: Chronic Assessment and Plan: * Blood pressure ranging 102/54 to 118/72 * Continue isosorbide (8) CAD (coronary artery disease): Code(s): I25.10 - Atherosclerotic heart disease of lime coronary artery without angina pectoris Status: Chronic Assessment and Plan: * Status post CABG x5 vessel * Continue atorvastatin (9) Pacemaker: Code(s): Z95.0 - Presence of cardiac pacemaker Status: Acute Assessment and Plan: * Ventricular pacemaker in place * EKG showed electronic ventricular pacemaker with a rate of 65, QTC 517 (10) BPH (benign prostatic hyperplasia): Code(s): N40.0 - Benign prostatic hyperplasia without lower urinary tract symptoms Status: Chronic Assessment and Plan: * Continue finasteride and tamsulosin (11) Chronic anemia: Code(s): D64.9 - Anemia, unspecified Status: Chronic Assessment and Plan: * Hemoglobin 9.4-->8.4 * Appears to be chronic * Continue ferrous sulfate * isat 15 and Ferritin 43. * IV Iron 400/1000mg * continue PO Iron (12) Sleep apnea: Code(s): G47.30 - Sleep apnea, unspecified Status: Chronic Assessment and Plan: * Patient currently requiring BiPAP due to hypercapnia Plan CHRISTIAN on CKD , worsening 1.8-2.3. Nephrology eval noted that patient may have to have to adjust to higher Creatinine thus recommended restarting Lasix, Lasix restarted 40mg bid IV Cr 2.51-->2.68 baseline is about 1.6 Lasix on hold, given worsening fluid overload, patient may need dialysis Nephrology consulted Hyperkalemia K 5.0 Started [facility] Nephrology following iron deficiency anemia Hb 8.2, isat 15 Give 400mg IV iron continue PO Iron monitor DVT prophylaxis on SCDs, hx of hemorrhagic CVA MBS held as family is considering hospice awaiting son's arrival this evening for hospice conversation DS: Summary Hospital Course Hospital Course: 84-year-old male with a significant past medical history who presented to the hospital for evaluation of altered mental status. Patient was found by staff members at his senior living facility to be somnolent and minimally arousable to verbal or painful stimuli and EMS was called to the scene. Upon EMS arrival patient was able to be stimulated by EMS en route, woke up, and was then alert and oriented x4. Workup in the hospital included a head CT which showed hyperdensity in the left posterior temporal/occipital area which is suggestive of acute/subacute infarct with multiple hyperdensities which may be hemorrhagic areas. Chest x-ray showed bilateral basal atelectasis versus pneumonia with bilateral pleural effusion, cardiomegaly with cardiac decompensation and pulmon monisha edema. Head/neck CTA shown a normal CTA of the head, CTA of the neck shows severe calcification of the carotid arteries, bilateral pleural effusion with adjacent atelectasis versus pneumonia. Initial labs showed a white blood cell count of 5.0, hemoglobin 9.5, platelet count 131, sodium 129, chloride 87, bicarb 36, creatinine 2.49, EGFR 25, blood sugars ranging 215-311, troponin 0.078> 0.078, TSH was normal at 3.770. VBG showed a pH of 7.276, pCO2 of 71.4, PO2 29.2, bicarb 32.5 on room air. UA was obtained which showed cloudy urine appearance, 1+ glucose, trace leukocytes, 6-10 urine WBC, 11-20 urine cast. Urine culture was obtained and shown Gram-negative bacilli isolated on preliminary read. EKG showed electronic ventricular pacemaker with a rate of 65, QTC 517. Was placed on BiPAP for a hypercapnia while in the ED. he was also given aspirin 300 mg rectal and Rocephin while in the ED. patient currently has an electronic pacemaker and is unable to get MRI at our facility . Patient had a prolonged hospitalization and was complicated by renal failure, acute on chronic respiratory failure and stroke. Patient and the family opted for comfort care and hospice and unfortunately he on 07/09/2024 . Time Spent with Patient Time attestation: Total time spent providing and/or coordinating discharge services: Exam Narrative: General: In no acute distress, well nourished Head: atraumatic, no encephalopathy Eyes: PERRLA, sclera clear ENT: moist mucous membranes, nasal passages clear Neck: supple, no JVD, no adenopathy, trachea midline Cardiac: Normal S1 and S2. No murmur, gallops or friction rubs, peripheral pulses intact. Respiratory:Inspiratory and expiratory wheezing, no other adventitious lung sounds, currently on nasal cannula with use of accessory muscles and acute respiratory distress. Gastrointestinal: soft, non-distended, non-tender, normoactive bowel sounds. : voiding without difficulty. Extremities:BUE with good hand costume rental clerk 4/5 bilaterally, 4+ pitting edema to bilateral lower extremities Skin: clean, dry, intact. No wounds or lesions. Neuro: Alert and oriented x4, cranial nerves intact, LUE weakness Psych: normal mood, normal affect, interactive Discharge Plan Discharge Attending physician on discharge: Chandan Vallejo Consulting providers: Temi Maurice; Lynne Hernández; Omer Sanchez; Manav Duarte; Renan Barnard; Nohemi Ross; Elzbieta Jamison; Marilynn Boyd; Harley Ruiz; Jacobo Oneal; Andrey Jean Baptiste; Rl,Jaguar Rodriguez; Severo Barber; Roel Phoenix; Alka Tovar Discharging Clinician: Chandan Vallejo Patient Disposition: Hospice - Medical Facility Patient Instructions: Heart Failure (GEN), Self Care Measures After a Stroke (GEN), Stroke (GEN), Stroke Prevention (GEN) Patient Language: Korean Stand Alone Forms: General Discharge Information Discharge Medications: No Action No Home Medications Date of admission: 06/25/24 19:40 Primary Care Provider: [facility] Admitting Provider: Chandan Vallejo Attending physician on admission: Chandan Vallejo Condition: Serious
== END 2024-07-09 11:05 | disposition hospice, inpatient (51) | DRG 189 ==
LOC: ANHED 06-25 12:15 → ANHIMU 06-25 20:27 → ANH3MEDSUR 07-09 11:04 → ANHIMU 07-10 11:04
PROVIDERS: Internal Medicine; Internal Medicine Nephrology; Nurse Practitioner Acute Care; Student in an Organized Health Care Education/Training Program; Admitting Provider General Practice; Emergency Provider Student in an Organized Health Care Education/Training Program; Visit Provider General Practice
DX: J96.22 Acute and chronic respiratory failure with hypercapnia (principal); I63.9 Cerebral infarction, unspecified; I13.0 Hypertensive heart and chronic kidney disease with heart failure and stage 1 through stage 4 chronic kidney disease, or unspecified chronic kidney disease; I50.22 Chronic systolic (congestive) heart failure; N17.9 Acute kidney failure, unspecified; N39.0 Urinary tract infection, site not specified; N18.4 Chronic kidney disease, stage 4 (severe); J44.1 Chronic obstructive pulmonary disease with (acute) exacerbation; B96.5 Pseudomonas (aeruginosa) (mallei) (pseudomallei) as the cause of diseases classified elsewhere; D63.1 Anemia in chronic kidney disease; D50.9 Iron deficiency anemia, unspecified; E11.65 Type 2 diabetes mellitus with hyperglycemia; E87.5 Hyperkalemia; E11.22 Type 2 diabetes mellitus with diabetic chronic kidney disease; G47.33 Obstructive sleep apnea (adult) (pediatric); I08.1 Rheumatic disorders of both mitral and tricuspid valves; I25.10 Atherosclerotic heart disease of native coronary artery without angina pectoris; N40.0 Benign prostatic hyperplasia without lower urinary tract symptoms; Z95.0 Presence of cardiac pacemaker; Z95.1 Presence of aortocoronary bypass graft; Z99.81 Dependence on supplemental oxygen; Z95.5 Presence of coronary angioplasty implant and graft; Z87.891 Personal history of nicotine dependence
CPT/HCPCS: 36415; 36600; 70450; 70496; 70498; 71045; 76775; 78582; 80053; 80069; 80143; 80179; 81001; 81050; 82077; 82274; 82550; 82570; 82607; 82728; 82746; 82803; 82805; 82948; 83036; 83540; 83550; 83735; 83880; 84100; 84156; 84300; 84443; 84484; 84540; 85018; 85025; 85055; 85380; 85610; 85730; 85999; 86704; 86706; 87086; 87186; 87340; 92610; 93005; 93970; 94002; 94003; 94640; 96360; 97161; 97165; 99291; A9270; A9540; A9558; J0696; J1756; J1815; J1938; J1939; J1940; J2060; J2919; J7030; J7050; J7120; Q5105; Q9967

== ENCOUNTER 2024-07-09 11:05 | HOS | payer MEDICARE, OTHER, SELFPAY ==
[2024-07-09] MEDS: MORPHINE SULFATE (*CRX) 2 MG/ML INJ IV PUSH (12:08)
[2024-07-09] MEDS: LORazepam INJ (*CRX) 2 MG/ML VIAL 1 MG IV PUSH (12:09)
--- OUTSIDE RECORDS SUMMARY | 2024-07-09 12:15 | XMS_ITS | Clinical Summary ---
Author Organization Unknown Care Team Providers Care Surveyor Chain Helper Name Role Phone FRANCISCO JAVIER OQUENDO Unavailable Unavaila boyd BELL PT, NADER Unavailable Unavailable ERNST TRANSLATIONAL SPECIALIST, ANMOL Unavailable Unavailable Payers Payer Name Policy Type Policy Number Effective Date Expira tion Date [facility].[id number] Problems Condition Name Condition Details [...] 05-26 00:00: [address]CL [address] DISEASE OF 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 8mcg/actuat ion HFA aerosol inhaler 06-02 00:00: 00 Yes [id number] COPD 2 puff 2 TIMES DAILY 2 puff 2 TIMES DAILY (route: inhalation ) Med Classific ation: Respirato ry Therapy Agents calcitriol 0.25 mcg capsule 06-02 00:00: 00 Yes [id number] LOW PARATHYROID HORMONE 1 capsule EVERY OTHER DAY 1 capsule EVERY OTHER DAY (route: oral) Med Classific ation: Electroly te Balance-N utritiona l Products diclofenac 1 % topical gel 06-02 00:00: 00 Yes [id number] NEEDED FOR KNEE PAIN 1 inch 4 TIMES DAILY 1 inch 4 TIMES DAILY (route: topical) Med Classific ation: Dermatolo gical ferrous sulfate 325 mg (65 mg iron) tablet 06-02 00:00: 00 Yes [id number] SUPPLEMENT 1 tablet DAILY 1 tablet DAILY (route: oral) Med Classific ation: Electroly te Balance-N utritiona l Products finasteride 5 mg tablet 06-02 00:00: 00 Yes [id number] PROSTATE 1 tablet DAILY 1 tablet DAILY (route: oral) Med Classific ation: Genitouri nary Therapy folic acid 1 mg tablet 06-02 00:00: 00 Yes [id number] SUPPLEMENT 1 tablet DAILY 1 tablet DAILY (route: oral) Med Classific ation: Electroly te Balance-N utritiona l Products guaifenesin 400 mg tablet 06-02 00:00: 00 Yes [id number] NEEDED FOR COUGH AND CONGESTION 1 tablet EVERY 4 HOURS 1 tablet EVERY 4 HOURS (route: oral) Med Classific ation: Respirato ry Therapy Agents metoprolol succinate ER 25 mg tablet,exte nded release 24 hr 06-02 00:00: 00 Yes [id number] HIGH BLOOD PRESSURE .5 tablet DAILY .5 tablet DAILY (route: oral) Med Classific ation: Cardiovas cular Therapy Agents pantoprazol e 40 mg tablet,uziel yed release 06-02 00:00: 00 Yes [id number] GERD 1 tablet DAILY 1 tablet DAILY (route: oral) Med Classific ation: Gastroint estinal Therapy Agents prednisolon e acetate 1 % eye drops,suspe nsion 06-02 00:00: 00 Yes [id number] EYE INFLAMMATIO N 1 drops 2 TIMES DAILY 1 drops 2 TIMES DAILY (route: ophthalmic (eye)) Med Classific ation: Ophthalmi c Agents pregabalin 25 mg capsule 06-02 00:00: 00 Yes [id number] NERVE PAIN 1 capsule DAILY 1 capsule DAILY (route: oral) Med Classific ation: Central Nervous System Agents sitagliptin 25 mg tablet 06-02 00:00: 00 Yes [id number] DIABETES 1 tablet DAILY 1 tablet DAILY (route: oral) Med Classific ation: Endocrine tamsulosin 0.4 mg capsule 06-02 00:00: 00 Yes [id number] PROSTATE HEALTH 1 capsule DAILY 1 capsule DAILY (route: oral) Med Classific ation: Genitouri nary Therapy torsemide 20 mg tablet 06-02 00:00: 00 Yes [id number] FLUID OVERLOAD 1 tablet 2 TIMES DAILY [...] TO EVALUATE, OBSERVE / ASSESS, AND MONITOR, TRANSLATIONAL SPECIALIST TO OBSERVE AND MONITOR, PROVIDE SKILLED THERAPEUTIC INTERVENTION, ACTIVITY, EDUCATION, AND TRAINING TO ADDRESS; PATIENT HAS PAST MEDICAL HISTORY OF CAD S/P CABG, HEART FAILURE, CKD STAGE 4, HTN, COPD, AFUA, CVA, UMBILICAL HERNIA, MILD PULMONARY HTN, DMII, AFIB, AORTIC STENOSIS. [facility] CL[facility] WILL MONITOR PATIENT FOR SIGNS AND SYMPTOMS OF EXACERBATION OF THESE DIAGNOSES AND WILL NOTIFY PROVIDER OF ANY CONCERNS OR CHANGES THAT ARISE. [code = AGENCY MAY PERFORM A RESUMPTION OF CARE VISIT FOLLOWING ANY HOSPITAL ADMISSION. PT TO EVALUATE, OBSERVE / ASSESS, AND MONITOR, TRANSLATIONAL SPECIALIST TO OBSERVE AND MONITOR, PROVIDE SKILLED THERAPEUTIC INTERVENTION, ACTIVITY, EDUCATION, AND TRAINING TO ADDRESS; PATIENT HAS PAST MEDICAL HISTORY OF CAD S/P CABG, HEART FAILURE, CKD STAGE 4, HTN, COPD, AFUA, CVA, UMBILICAL HERNIA, MILD PULMONARY HTN, DMII, AFIB, AORTIC STENOSIS. [facility] CLIN[facility] WILL MONITOR PATIENT FOR SIGNS AND SYMPTOMS OF EXACERBATION OF THESE DIAGNOSES AND WILL NOTIFY PROVIDER OF ANY CONCERNS OR CHANGES THAT ARISE. ] Future Scheduled Test PT / TRANSLATIONAL SPECIALIST T O INSTRUCT PATIENT/CAREGIVER ON RISK FOR HOSPITALIZATION/EMERGENCY ROOM VISITS, TEACH SIGNS AND SYMPTOMS THAT PUT PATIENT AT RISK, WHEN TO NOTIFY NURSE/PHYSICIAN OF COMPLICATIONS/DECLINE, AND WHEN TO CALL 911. [code = PT / TRANSLATIONAL SPECIALIST TO INSTRUCT PATIENT/CAREGIVER ON RISK FOR HOSPITALIZATION/EMERGENCY ROOM VISITS, TEACH SIGNS AND SYMPTOMS THAT PUT PATIENT AT RISK, WHEN TO NOTIFY NURSE/PHYSICIAN OF COMPLICATIONS/DECLINE, AND WHEN TO CALL 911.] Future Scheduled Test BED MOBILI TY (PT/TRANSLATIONAL SPECIALIST) [code = BED MOBILITY (PT/TRANSLATIONAL SPECIALIST)] Future Scheduled Test PT/TRANSLATIONAL SPECIALIST TO PROVIDE GAIT TRAINING FOR IMPROVED MOBILITY AND /OR TO NORMALIZE GAIT PATTERN [code = PT/TRANSLATIONAL SPECIALIST TO PROVIDE GAIT TRAINING FOR IMPROVED MOBILITY AND /OR TO NORMALIZE GAIT PATTERN] Future Scheduled Test PT/TRANSLATIONAL SPECIALIST TO IDENTIFY FALL RISK FACTORS; EDUCATE THE PATIENT/CAREGIVER ON WAYS TO REDUCE FALL RISK FACTORS AND ESTABLISH HOME EXERCISE PROGRAM TO MINIMIZE FALL RISK. MAY TEACH THE PATIENT FLOOR RECOVERY WHEN CLINICALLY APPROPRIATE [code = PT/TRANSLATIONAL SPECIALIST TO IDENTIFY FALL RISK FACTORS; EDUCATE THE PATIENT/CAREGIVER ON WAYS TO REDUCE FALL RISK FACTORS AND ESTABLISH HOME EXERCISE PROGRAM TO MINIMIZE FALL RISK. MAY TEACH THE PATIENT FLOOR RECOVERY WHEN CLINICALLY APPROPRIATE] Future Scheduled Test SIT TO/FRO M STAND TRANSFERS (PT/TRANSLATIONAL SPECIALIST) [code = SIT TO/FROM STAND TRANSFERS (PT/TRANSLATIONAL SPECIALIST)] Future Scheduled Test PT TO ASSE SS / TRANSLATIONAL SPECIALIST TO MONITOR CARDIO/RESPIRATORY SYSTEM; AND NOTIFY THE PHYSICIAN AND/OR THE RN CLINICAL SAP BW BI DEVELOPER FOR PHYSICIAN NOTIFICATION FOR EARLY SIGNS AND SYMPTOMS OF EXACERBATION OR DETERIORATION. [code = PT TO ASSESS / TRANSLATIONAL SPECIALIST TO MONITOR CARDIO/RESPIRATORY SYSTEM; AND NOTIFY THE PHYSICIAN AND/OR THE RN CLINICAL SAP BW BI DEVELOPER FOR PHYSICIAN NOTIFICATION FOR EARLY SIGNS AND SYMPTOMS OF EXACERBATION OR DETERIORATION.] Future Scheduled Test PT / TRANSLATIONAL SPECIALIST T O MONITOR AND EDUCATE ON OXYGEN SATURATION DURING ADLS/IADLS, NOTIFY PHYSICIAN AND/OR THE RN CLINICAL SAP BW BI DEVELOPER FOR PHYSICIAN NOTIFICATION AND IF O2 SATS BELOW PHYSICIAN ORDERED PARAMETERS AFTER 10 MIN OF REST [code = PT / TRANSLATIONAL SPECIALIST TO MONITOR AND EDUCATE ON OXYGEN SATURATION DURING ADLS/IADLS, NOTIFY PHYSICIAN AND/OR THE RN CLINICAL SAP BW BI DEVELOPER FOR PHYSICIAN NOTIFICATION AND IF O2 SATS BELOW PHYSICIAN ORDERED PARAMETERS AFTER 10 MIN OF REST] Future Scheduled Test PT / TRANSLATIONAL SPECIALIST T O EDUCATE PATIENT / CAREGIVER ON OXYGEN MANAGEMENT; OXYGEN FLOW RATE L/MIN CONTINUOUS [code = PT / TRANSLATIONAL SPECIALIST TO EDUCATE PATIENT / CAREGIVER ON OXYGEN MANAGEMENT; OXYGEN FLOW RATE L/MIN CONTINUOUS ] Future Scheduled Test PT / TRANSLATIONAL SPECIALIST T O MONITOR FOR HYPO/HYPERGLYCEMIA AND CONDUCT ROUTINE FOOT INSPECTIONS. RECORD PATIENT REPORTED BLOOD SUGAR LEVELS AND NOTIFY PHYSICIAN AND/OR THE RN CLINICAL SAP BW BI DEVELOPER FOR PHYSICIAN NOTIFICATION IF BLOOD SUGAR LEVELS ARE OUTSIDE ORDERED PARAMETERS. TEACH PATIENT/CAREGIVER ON DAILY FOOT INSPECTIONS [code = PT / TRANSLATIONAL SPECIALIST TO MONITOR FOR HYPO/HYPERGLYCEMIA AND CONDUCT ROUTINE FOOT INSPECTIONS. RECORD PATIENT REPORTED BLOOD SUGAR LEVELS AND NOTIFY PHYSICIAN AND/OR THE RN CLINICAL SAP BW BI DEVELOPER FOR PHYSICIAN NOTIFICATION IF BLOOD SUGAR LEVELS ARE OUTSIDE ORDERED PARAMETERS. TEACH PATIENT/CAREGIVER ON DAILY FOOT INSPECTIONS] Future Scheduled Test NEUROMUSCU LAR RE-EDUCATION / BALANCE / POSTURAL CONTROL (PT) [code = NEUROMUSCULAR RE-EDUCATION / BALANCE / POSTURAL CONTROL (PT)] Future Scheduled Test PT / TRANSLATIONAL SPECIALIST T O EDUCATE ON HEART FAILURE SELF-MANAGEMENT [code = PT / TRANSLATIONAL SPECIALIST TO EDUCATE ON HEART FAILURE SELF-MANAGEMENT] Future Scheduled Test PT / TRANSLATIONAL SPECIALIST T O EDUCATE ON HYPERTENSION SELF-MANAGEMENT [code = PT / TRANSLATIONAL SPECIALIST TO EDUCATE ON HYPERTENSION SELF-MANAGEMENT] Future Scheduled Test PT / TRANSLATIONAL SPECIALIST T O EDUCATE ON COPD SELF-MANAGEMENT [code = PT / TRANSLATIONAL SPECIALIST TO EDUCATE ON COPD SELF-MANAGEMENT] Future Scheduled Test PT / TRANSLATIONAL SPECIALIST T O EDUCATE ON DIABETES SELF- MANAGEMENT [code = PT / TRANSLATIONAL SPECIALIST TO EDUCATE ON DIABETES SELF- MANAGEMENT] Goal [...] 00:00:00 Outpatient NEW ADMISSION NADER BELL [facility] [id number]
--- OUTSIDE RECORDS SUMMARY | 2024-07-09 12:16 | XMS_ITS | Clinical Summary ---
Author Organization Unknown Care Team Providers Care Overhead Door Technician Name Role Phone FRANCISCO JAVIER OQUENDO Unavailable Unavaila boyd BELL PT, NADER Unavailable Unavailable [facility]FOR[employer]CE PROFESSOR, ANMOL Unavailable Unavailable Payers Payer Name Policy Type Policy Number Effective Date Expira tion Date 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 8mcg/actuat ion HFA aerosol inhaler 06-02 00:00: 00 Yes [id number] COPD 2 puff 2 TIMES DAILY 2 puff 2 TIMES DAILY (route: inhalation ) Med Classific ation: Respirato ry Therapy Agents calcitriol 0.25 mcg capsule 06-02 00:00: 00 Yes [id number] LOW PARATHYROID HORMONE 1 capsule EVERY OTHER DAY 1 capsule EVERY OTHER DAY (route: oral) Med Classific ation: Electroly te Balance-N utritiona l Products diclofenac 1 % topical gel 06-02 00:00: 00 Yes [id number] NEEDED FOR KNEE PAIN 1 inch 4 TIMES DAILY 1 inch 4 TIMES DAILY (route: topical) Med Classific ation: Dermatolo gical ferrous sulfate 325 mg (65 mg iron) tablet 06-02 00:00: 00 Yes [id number] SUPPLEMENT 1 tablet DAILY 1 tablet DAILY (route: oral) Med Classific ation: Electroly te Balance-N utritiona l Products finasteride 5 mg tablet 06-02 00:00: 00 Yes [id number] PROSTATE 1 tablet DAILY 1 tablet DAILY (route: oral) Med Classific ation: Genitouri nary Therapy folic acid 1 mg tablet 06-02 00:00: 00 Yes [id number] SUPPLEMENT 1 tablet DAILY 1 tablet DAILY (route: oral) Med Classific ation: Electroly te Balance-N utritiona l Products guaifenesin 400 mg tablet 06-02 00:00: 00 Yes [id number] NEEDED FOR COUGH AND CONGESTION 1 tablet EVERY 4 HOURS 1 tablet EVERY 4 HOURS (route: oral) Med Classific ation: Respirato ry Therapy Agents metoprolol succinate ER 25 mg tablet,exte nded release 24 hr 06-02 00:00: 00 Yes [id number] HIGH BLOOD PRESSURE .5 tablet DAILY .5 tablet DAILY (route: oral) Med Classific ation: Cardiovas cular Therapy Agents pantoprazol e 40 mg tablet,uziel yed release 06-02 00:00: 00 Yes [id number] GERD 1 tablet DAILY 1 tablet DAILY (route: oral) Med Classific ation: Gastroint estinal Therapy Agents prednisolon e acetate 1 % eye drops,suspe nsion 06-02 00:00: 00 Yes [id number] EYE INFLAMMATIO N 1 drops 2 TIMES DAILY 1 drops 2 TIMES DAILY (route: ophthalmic (eye)) Med Classific ation: Ophthalmi c Agents pregabalin 25 mg capsule 06-02 00:00: 00 Yes [id number] NERVE PAIN 1 capsule DAILY 1 capsule DAILY (route: oral) Med Classific ation: Central Nervous System Agents sitagliptin 25 mg tablet 06-02 00:00: 00 Yes [id number] DIABETES 1 tablet DAILY 1 tablet DAILY (route: oral) Med Classific ation: Endocrine tamsulosin 0.4 mg capsule 06-02 00:00: 00 Yes [id number] PROSTATE HEALTH 1 capsule DAILY 1 capsule DAILY (route: oral) Med Classific ation: Genitouri nary Therapy torsemide 20 mg tablet 06-02 00:00: 00 Yes [id number] FLUID OVERLOAD 1 tablet 2 TIMES DAILY [...] TO EVALUATE, OBSERVE / ASSESS, AND MONITOR, HEALTH AND HUMAN PERFORMANCE PROFESSOR TO OBSERVE AND MONITOR, PROVIDE SKILLED THERAPEUTIC INTERVENTION, ACTIVITY, EDUCATION, AND TRAINING TO ADDRESS; PATIENT HAS PAST MEDICAL HISTORY OF CAD S/P CABG, HEART FAILURE, CKD STAGE 4, HTN, COPD, AFUA, CVA, UMBILICAL HERNIA, MILD PULMONARY HTN, DMII, AFIB, AORTIC STENOSIS. [facility] CLINICIANS WILL MONITOR PATIENT FOR SIGNS AND SYMPTOMS OF EXACERBATION OF THESE DIAGNOSES AND WILL NOTIFY PROVIDER OF ANY CONCERNS OR CHANGES THAT ARISE. [code = AGENCY MAY PERFORM A RESUMPTION OF CARE VISIT FOLLOWING ANY HOSPITAL ADMISSION. PT TO EVALUATE, OBSERVE / ASSESS, AND MONITOR, HEALTH AND HUMAN PERFORMANCE PROFESSOR TO OBSERVE AND MONITOR, PROVIDE SKILLED THERAPEUTIC INTERVENTION, ACTIVITY, EDUCATION, AND TRAINING TO ADDRESS; PATIENT HAS PAST MEDICAL HISTORY OF CAD S/P CABG, HEART FAILURE, CKD STAGE 4, HTN, COPD, AFUA, CVA, UMBILICAL HERNIA, MILD PULMONARY HTN, DMII, AFIB, AORTIC STENOSIS. [facility] CLINICIANS WILL MONITOR PATIENT FOR SIGNS AND SYMPTOMS OF EXACERBATION OF THESE DIAGNOSES AND WILL NOTIFY PROVIDER OF ANY CONCERNS OR CHANGES THAT ARISE. ] Future Scheduled Test PT / HEALTH AND HUMAN PERFORMANCE PROFESSOR T O INSTRUCT PATIENT/CAREGIVER ON RISK FOR HOSPITALIZATION/EMERGENCY ROOM VISITS, TEACH SIGNS AND SYMPTOMS THAT PUT PATIENT AT RISK, WHEN TO NOTIFY NURSE/PHYSICIAN OF COMPLICATIONS/DECLINE, AND WHEN TO CALL 911. [code = PT / HEALTH AND HUMAN PERFORMANCE PROFESSOR TO INSTRUCT PATIENT/CAREGIVER ON RISK FOR HOSPITALIZATION/EMERGENCY ROOM VISITS, TEACH SIGNS AND SYMPTOMS THAT PUT PATIENT AT RISK, WHEN TO NOTIFY NURSE/PHYSICIAN OF COMPLICATIONS/DECLINE, AND WHEN TO CALL 911.] Future Scheduled Test BED MOBILI TY (PT/HEALTH AND HUMAN PERFORMANCE PROFESSOR) [code = BED MOBILITY (PT/HEALTH AND HUMAN PERFORMANCE PROFESSOR)] Future Scheduled Test PT/HEALTH AND HUMAN PERFORMANCE PROFESSOR TO PROVIDE GAIT TRAINING FOR IMPROVED MOBILITY AND /OR TO NORMALIZE GAIT PATTERN [code = PT/HEALTH AND HUMAN PERFORMANCE PROFESSOR TO PROVIDE GAIT TRAINING FOR IMPROVED MOBILITY AND /OR TO NORMALIZE GAIT PATTERN] Future Scheduled Test PT/HEALTH AND HUMAN PERFORMANCE PROFESSOR TO IDENTIFY FALL RISK FACTORS; EDUCATE THE PATIENT/CAREGIVER ON WAYS TO REDUCE FALL RISK FACTORS AND ESTABLISH HOME EXERCISE PROGRAM TO MINIMIZE FALL RISK. MAY TEACH THE PATIENT FLOOR RECOVERY WHEN CLINICALLY APPROPRIATE [code = PT/HEALTH AND HUMAN PERFORMANCE PROFESSOR TO IDENTIFY FALL RISK FACTORS; EDUCATE THE PATIENT/CAREGIVER ON WAYS TO REDUCE FALL RISK FACTORS AND ESTABLISH HOME EXERCISE PROGRAM TO MINIMIZE FALL RISK. MAY TEACH THE PATIENT FLOOR RECOVERY WHEN CLINICALLY APPROPRIATE] Future Scheduled Test SIT TO/FRO M STAND TRANSFERS (PT/HEALTH AND HUMAN PERFORMANCE PROFESSOR) [code = SIT TO/FROM STAND TRANSFERS (PT/HEALTH AND HUMAN PERFORMANCE PROFESSOR)] Future Scheduled Test PT TO ASSE SS / HEALTH AND HUMAN PERFORMANCE PROFESSOR TO MONITOR CARDIO/RESPIRATORY SYSTEM; AND NOTIFY THE PHYSICIAN AND/OR THE RN CLINICAL DEVELOPMENTAL WRITING INSTRUCTOR FOR PHYSICIAN NOTIFICATION FOR EARLY SIGNS AND SYMPTOMS OF EXACERBATION OR DETERIORATION. [code = PT TO ASSESS / HEALTH AND HUMAN PERFORMANCE PROFESSOR TO MONITOR CARDIO/RESPIRATORY SYSTEM; AND NOTIFY THE PHYSICIAN AND/OR THE RN CLINICAL DEVELOPMENTAL WRITING INSTRUCTOR FOR PHYSICIAN NOTIFICATION FOR EARLY SIGNS AND SYMPTOMS OF EXACERBATION OR DETERIORATION.] Future Scheduled Test PT / HEALTH AND HUMAN PERFORMANCE PROFESSOR T O MONITOR AND EDUCATE ON OXYGEN SATURATION DURING ADLS/IADLS, NOTIFY PHYSICIAN AND/OR THE RN CLINICAL DEVELOPMENTAL WRITING INSTRUCTOR FOR PHYSICIAN NOTIFICATION AND IF O2 SATS BELOW PHYSICIAN ORDERED PARAMETERS AFTER 10 MIN OF REST [code = PT / HEALTH AND HUMAN PERFORMANCE PROFESSOR TO MONITOR AND EDUCATE ON OXYGEN SATURATION DURING ADLS/IADLS, NOTIFY PHYSICIAN AND/OR THE RN CLINICAL DEVELOPMENTAL WRITING INSTRUCTOR FOR PHYSICIAN NOTIFICATION AND IF O2 SATS BELOW PHYSICIAN ORDERED PARAMETERS AFTER 10 MIN OF REST] Future Scheduled Test PT / HEALTH AND HUMAN PERFORMANCE PROFESSOR T O EDUCATE PATIENT / CAREGIVER ON OXYGEN MANAGEMENT; OXYGEN FLOW RATE L/MIN CONTINUOUS [code = PT / HEALTH AND HUMAN PERFORMANCE PROFESSOR TO EDUCATE PATIENT / CAREGIVER ON OXYGEN MANAGEMENT; OXYGEN FLOW RATE L/MIN CONTINUOUS ] Future Scheduled Test PT / HEALTH AND HUMAN PERFORMANCE PROFESSOR T O MONITOR FOR HYPO/HYPERGLYCEMIA AND CONDUCT ROUTINE FOOT INSPECTIONS. RECORD PATIENT REPORTED BLOOD SUGAR LEVELS AND NOTIFY PHYSICIAN AND/OR THE RN CLINICAL DEVELOPMENTAL WRITING INSTRUCTOR FOR PHYSICIAN NOTIFICATION IF BLOOD SUGAR LEVELS ARE OUTSIDE ORDERED PARAMETERS. TEACH PATIENT/CAREGIVER ON DAILY FOOT INSPECTIONS [code = PT / HEALTH AND HUMAN PERFORMANCE PROFESSOR TO MONITOR FOR HYPO/HYPERGLYCEMIA AND CONDUCT ROUTINE FOOT INSPECTIONS. RECORD PATIENT REPORTED BLOOD SUGAR LEVELS AND NOTIFY PHYSICIAN AND/OR THE RN CLINICAL DEVELOPMENTAL WRITING INSTRUCTOR FOR PHYSICIAN NOTIFICATION IF BLOOD SUGAR LEVELS ARE OUTSIDE ORDERED PARAMETERS. TEACH PATIENT/CAREGIVER ON DAILY FOOT INSPECTIONS] Future Scheduled Test NEUROMUSCU LAR RE-EDUCATION / BALANCE / POSTURAL CONTROL (PT) [code = NEUROMUSCULAR RE-EDUCATION / BALANCE / POSTURAL CONTROL (PT)] Future Scheduled Test PT / HEALTH AND HUMAN PERFORMANCE PROFESSOR T O EDUCATE ON HEART FAILURE SELF-MANAGEMENT [code = PT / HEALTH AND HUMAN PERFORMANCE PROFESSOR TO EDUCATE ON HEART FAILURE SELF-MANAGEMENT] Future Scheduled Test PT / HEALTH AND HUMAN PERFORMANCE PROFESSOR T O EDUCATE ON HYPERTENSION SELF-MANAGEMENT [code = PT / HEALTH AND HUMAN PERFORMANCE PROFESSOR TO EDUCATE ON HYPERTENSION SELF-MANAGEMENT] Future Scheduled Test PT / HEALTH AND HUMAN PERFORMANCE PROFESSOR T O EDUCATE ON COPD SELF-MANAGEMENT [code = PT / HEALTH AND HUMAN PERFORMANCE PROFESSOR TO EDUCATE ON COPD SELF-MANAGEMENT] Future Scheduled Test PT / HEALTH AND HUMAN PERFORMANCE PROFESSOR T O EDUCATE ON DIABETES SELF- MANAGEMENT [code = PT / HEALTH AND HUMAN PERFORMANCE PROFESSOR TO EDUCATE ON DIABETES SELF- MANAGEMENT] Goal [...] 2024-07-31 00:00:00 Outpatient NEW ADMISSION NADER BELL [facility] [id number]
--- OUTSIDE RECORDS SUMMARY | 2024-07-09 12:16 | XMS_ITS | Clinical Summary ---
Author Organization [facility] Address [address] [place] [address] Care Team Providers Care Seasonal Tax Preparer Name Role Phone Rafat Nunez MD Primary Care Provider [phone] Source Comments [facility],non-christian hospital Affiliates and Associated Physician Practices is amultiple site organization consisting of ambulatory clinics and hospital sitesin [place], [place], [place] and [place]. This disclosure is being madepursuant to the Care Everywhere program and may not contain all information available regarding this patient. Last updated 17.[facility] Allergies Active Allergy Reactions Criticality Noted Date [...] Immunizations Name Administration Dates Next Due Sharmin Next Points primary monoval ent 12+ yr 0.3mL Purple [...] Health Maintenance Due Date Last Done Comments DTAP/TDAP/TD VACCINES (1 - Tdap) 1961 PNEUMOCOCCAL VACCINE 50+ (1 of 1 - PCV) 1992 ZOSTER VACCINE (1 of 2) 1992 Respiratory Syncytial Virus (RSV) Vaccine Pt: or over 60 yrs (1 - 1-dose 75+ series) 2017 COVID-19 VACCINE ( season) 2023 01/15/2022, 11/27/2021, 01/11/2021, Additional history exists DEPRESSION SCREENING 04/01/2024 INFLUENZA VACCINE Completed 01/06/2024, , 01/01/2017, Additional history exists HEPATITIS B VACCINE Aged Out No longe [...] A/C/Y/W VACCINE Aged Out No longer eligible based on patient's age to complete this topic Care Teams Seasonal Tax Preparer Relationship Specialty Start Date End Date Rafat Nunez MD [address] OF [facility] [place] [address] PCP - General 08/11/20
--- OUTSIDE RECORDS SUMMARY | 2024-07-09 12:16 | XMS_ITS | Continuity of Care Document ---
Author Organization [facility] Address [address] [place] [address] Phone Care Team Providers Care Sports Teacher Name Role Phone Jonn Trinh Unavailable Unavailable Procedures Procedure Date Eye Exam Established Pt Ophthalmoscopy, Subsequent Ophthalmoscopy, Subsequent Office/outpatient Visit, Est Advance Directives Directive Yes / No Effective Date File Name No Information Encounters Encounter Description Practice Location Reason(s) For Visit Diagnoses Date Provider Providers Copied on Encounter [facility], [address], [place], [place], [id number], [place] tel:[phone] [facility] No Information [address] [place], [address], [place]. tel:[phone] Office/outpat ient Visit, Est [facility], [address] [place] [address] [address], [place], [place], [address], [place] tel:[phone] [facility] No Information [address] [place], [place], [id number], [place]. tel:[phone] Family History Family Member Type Diagnosis Age At Onset No Information Payers Payer name Insurance type Covered democrat ID Authoriza tion(s) No Information Social History [...]
[2024-07-09] MEDS: MORPHINE SULFATE INJ (*CRX) 50 MG in SODIUM CHLORIDE 0.9% IV 95 ML IV CONT (13:05)
[2024-07-09 13:17] VITALS: BMI 34.4
[2024-07-09 13:39] VITALS: O2SAT 95
--- NOTE | 2024-07-09 14:11 | PC.NURSE ---
This patient, Jessica Wallace, was admitted to [facility] Surg Room 303-01. Patient/family oriented to hospital policies and general routines including ID bracelet, bed and alarms, visiting hours, pain management, procedures, bathroom and other care routines, personal items, smoking policy, room service/diet, and visiting hours. Information on how to activate the Rapid Response Team has been discussed. Patient/Family are encouraged to report perceived risks to care and to ask questions if they do not understand what they are told or what they should do.
--- NOTE | 2024-07-09 16:40 | P.DN_ITS ---
Discharge Summary Date and Time Date of : 07/09/24 Time of : 14:25 Provider Name of Provider That Pronounced: Yan Duron Name of First RN That Pronounced: Sally Bowser Probable Cause of Probable Cause of : Acute and chronic respiratory failure Summary Hospital Course: 84-year-old male with a significant past medical history who presented to the hospital for evaluation of altered mental status. Patient was found by staff members at his retirement facility to be somnolent and minimally arousable to verbal or painful stimuli and EMS was called to the scene. Upon EMS arrival patient was able to be stimulated by EMS en route, woke up, and was then alert and oriented x4. Workup in the hospital included a head CT which showed hyperdensity in the left posterior temporal/occipital area which is suggestive of acute/subacute infarct with multiple hyperdensities which may be hemorrhagic areas. Chest x-ray showed bilateral basal atelectasis versus pneumonia with bilateral pleural effusion, cardiomegaly with cardiac decompensation and pulm onary edema. Head/neck CTA shown a normal CTA of the head, CTA of the neck shows severe calcification of the carotid arteries, bilateral pleural effusion with adjacent atelectasis versus pneumonia. Initial labs showed a white blood cell count of 5.0, hemoglobin 9.5, platelet count 131, sodium 129, chloride 87, bicarb 36, creatinine 2.49, EGFR 25, blood sugars ranging 215-311, troponin 0.078> 0.078, TSH was normal at 3.770. VBG showed a pH of 7.276, pCO2 of 71.4, PO2 29.2, bicarb 32.5 on room air. UA was obtained which showed cloudy urine appearance, 1+ glucose, trace leukocytes, 6-10 urine WBC, 11-20 urine cast. Urine culture was obtained and shown Gram-negative bacilli isolated on preliminary read. EKG showed electronic ventricular pacemaker with a rate of 65, QTC 517. Was placed on BiPAP for a hypercapnia while in the ED. he was also given aspirin 300 mg rectal and Rocephin while in the ED. patient currently has an electronic pacemaker and is unable to get MRI at our facility . Patient had a prolonged hospitalization and was complicated by renal failure, acute on chronic respiratory failure and stroke. Patient and the family opted for comfort care and hospice and unfortunately he on 07/09/2024 .
--- NOTE | 2024-07-09 18:38 | PC.NURSE ---
PT 1425. Lines and healy removed, family bedside, MD aware.
--- NOTE | 2024-07-10 17:59 | PM.IMHP ---
H&P: HPI History of Present Illness Date/Time: 07/10/24 17:59 Chief Complaint: AMS Narrative: 84-year-old male with a significant past medical history who presented to the hospital for evaluation of altered mental status. Patient was found by staff members at his long-term facility to be somnolent and minimally arousable to verbal or painful stimuli and EMS was called to the scene. Upon EMS arrival patient was able to be stimulated by EMS en route, woke up, and was then alert and oriented x4. Workup in the hospital included a head CT which showed hyperdensity in the left posterior temporal/occipital area which is suggestive of acute/subacute infarct with multiple hyperdensities which may be hemorrhagic areas. Chest x-ray showed bilateral basal atelectasis versus pneumonia with bilateral pleural effusion, cardiomegaly with cardiac decompensation and pulmonary edema. Head/neck CTA shown a normal CTA of the head, CTA of the neck shows severe calcification of the carotid arteries, bilateral pleural effusion with adjacent atelectasis versus pneumonia. Initial labs showed a white blood cell count of 5.0, hemoglobin 9.5, platelet count 131, sodium 129, chloride 87, bicarb 36, creatinine 2.49, EGFR 25, blood sugars ranging 215-311, troponin 0.078> 0.078, TSH was normal at 3.770. VBG showed a pH of 7.276, pCO2 of 71.4, PO2 29.2, bicarb 32.5 on room air. UA was obtained which showed cloudy urine appearance, 1+ glucose, trace leukocytes, 6-10 urine WBC, 11-20 urine cast. Urine culture was obtained and shown Gram-negative bacilli isolated on preliminary read. EKG showed electronic ventricular pacemaker with a rate of 65, QTC 517. Was placed on BiPAP for a hypercapnia while in the ED. he was also given aspirin 300 mg rectal and Rocephin while in the ED. patient currently has an electronic pacemaker and is unable to get MRI at our facility . Patient had a prolonged hospitalization and was complicated by renal failure, acute on chronic respiratory failure and stroke. 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 Chronic anemia Chronic renal failure, stage 3 (moderate) Chronic respiratory failure with hypoxia He wears oxygen at 2 L per nasal cannula Hypertension Sleep apnea The patient no longer uses and CPAP machine CAD (coronary artery disease) Pacemaker CHF (congestive heart failure) COPD (chronic obstructive pulmonary disease) Surgical History Surgical History H/O cystoscopy With bladder biopsy S/P CABG x 5 S/P heart valve repair Stented coronary artery X1 Family History Family History Daughter Scleroderma Social History Social History Social History: The patient lives 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 The patient desires to be a full code but does not want to be in a vegetative state on a ventilator. Patient is retired from working for the [employer] [facility]. He had a son and a daughter but his daughter with the scleroderma. Patient does not use any alcohol, marijuana, or illicit drugs. The patient stated that he quit smoking 40 years ago. The patient served in the [employer] in [place] and suffers from exposure from agent orange. Smoking packs per day: 2 Smoking cigarettes per day: 40.0 Years smoked: 22 Smoking pack-years: 44.00 Smoking status: Former smoker Second hand tobacco smoke exposure: No Alcohol intake: never Substance use: never Do You Feel Safe in your Home?: Yes Lack of Transportation: No Lack of Food: Never True Current Housing: I Have Housing Concerned About Future Housing: No Difficulty Paying Gas/Electric Bills: No Difficulty Paying for Meds: No Currently Unemployed: No Education: High School Diploma/GED Difficulty w/ Childcare or Family Care: No Gender identity (if verbalized by the patient): Male Spiritual care concerns: No Meds Home Medications and Allergies Home Medications ?Medication ?Instructions ?Recorded ?Confirmed ?Type No Home Medications 07/09/24 07/09/24 History Allergies Allergy/AdvReac Type Severity Reaction Status Date / Time latex Allergy Unknown Rash Verified 06/25/24 06:09 lisinopril Allergy Unknown Unknown Verified 06/25/24 06:09 Assessment and Plan Assessment and plan (1) Hypertension: Code(s): I10 - Essential (primary) hypertension Status: Chronic (2) CHF (congestive heart failure): Code(s): I50.9 - Heart failure, unspecified Status: Chronic (3) CHF exacerbation: Code(s): I50.9 - Heart failure, unspecified Status: Acute (4) Pacemaker: Code(s): Z95.0 - Presence of cardiac pacemaker Status: Acute (5) CAD (coronary artery disease): Code(s): I25.10 - Atherosclerotic heart disease of tetlin coronary artery without angina pectoris Status: Chronic Plan 84-year-old male with a significant past medical history who presented to the hospital for evaluation of altered mental status. Patient was found by staff members at his long-term facility to be somnolent and minimally arousable to verbal or painful stimuli and EMS was called to the scene. Upon EMS arrival patient was able to be stimulated by EMS en route, woke up, and was then alert and oriented x4. Workup in the hospital included a head CT which showed hyperdensity in the left posterior temporal/occipital area which is suggestive of acute/subacute infarct with multiple hyperdensities which may be hemorrhagic areas. Chest x-ray showed bilateral basal atelectasis versus pneumonia with bilateral pleural effusion, cardiomegaly with cardiac decompensation and pulmonary edema. Head/neck CTA shown a normal CTA of the head, CTA of the neck shows severe calcification of the carotid arteries, bilateral pleural effusion with adjacent atelectasis versus pneumonia. Initial labs showed a white blood cell count of 5.0, hemoglobin 9.5, platelet count 131, sodium 129, chloride 87, bicarb 36, creatinine 2.49, EGFR 25, blood sugars ranging 215-311, troponin 0.078> 0.078, TSH was normal at 3.770. VBG showed a pH of 7.276, pCO2 of 71.4, PO2 29.2, bicarb 32.5 on room air. UA was obtained which showed cloudy urine appearance, 1+ glucose, trace leukocytes, 6-10 urine WBC, 11-20 urine cast. Urine culture was obtained and shown Gram-negative bacilli isolated on preliminary read. EKG showed electronic ventricular pacemaker with a rate of 65, QTC 517. Was placed on BiPAP for a hypercapnia while in the ED. he was also given aspirin 300 mg rectal and Rocephin while in the ED. patient currently has an electronic pacemaker and is unable to get MRI at our facility . Patient had a prolonged hospitalization and was complicated by renal failure, acute on chronic respiratory failure and stroke. Patient and the family opted for comfort care and hospice
--- OUTSIDE RECORDS SUMMARY | 2024-07-13 06:51 | XMS_ITS | Continuity of Care Document ---
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 [employer] Pet Supp[employer] Name Role Phone Jonn Trinh Unavailable Unavailable Procedures Procedure Date Eye Exam Established Pt Ophthalmoscopy, Subsequent Ophthalmoscopy, Subsequent Office/outpatient Visit, Est Advance Directives Directive Yes / No Effective Date File Name No Information Encounters Encounter Description Practice Location Reason(s) For Visit Diagnoses Date Provider Providers Copied on Encounter [facility], [address], [place], [place], [id number], [place] tel:[phone] [address] [facility] No Information [address] [place], [address], [place]. tel:[phone] Office/outpat ient Visit, Est [facility], [address] [place] [address] [address], [place], [place], [id number], [place] tel:[phone] [address] [facility] No Information [address] [place], [place], [id number], [place]. tel:[phone] Family History Family Member Type Diagnosis Age At Onset No Information Payers Payer name Insurance type Covered alliance party ID Authoriza tion(s) No Information Social History [...]
--- OUTSIDE RECORDS SUMMARY | 2024-07-13 06:51 | XMS_ITS | Clinical Summary ---
Author Organization [facility] [employer] Address [address] [place] [address] Care Team Providers Care Robotics Technician Name Role Phone Rafat Nunez MD Primary Care Provider [phone] Source Comments [facility] [employer],non-[facility]iliates and Associated Physician Practices is amultiple site organization consisting of ambulatory clinics and hospital sitesin [place], [place], [place] and [place]. This disclosure is being madepursuant to the Care Everywhere program and may not contain all information available regarding this patient. Last updated 17.[facility] [employer] Allergies Active Allergy Reactions Criticality Noted Date Comments Latex Unknown 11/15/2020 Lisinopril Unknown 11/15/2020 Medications * Be aware that medications may not be up to date on this document. Alwaysverify current medications with the patient. 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
== END 2024-07-09 14:25 | disposition expired | DRG 951 ==
PROVIDERS: Admitting Provider General Practice; Visit Provider General Practice
DX: Z51.5 Encounter for palliative care (principal); I63.9 Cerebral infarction, unspecified; J96.22 Acute and chronic respiratory failure with hypercapnia; I13.0 Hypertensive heart and chronic kidney disease with heart failure and stage 1 through stage 4 chronic kidney disease, or unspecified chronic kidney disease; I50.9 Heart failure, unspecified; I25.10 Atherosclerotic heart disease of native coronary artery without angina pectoris; N18.30 Chronic kidney disease, stage 3 unspecified; J44.9 Chronic obstructive pulmonary disease, unspecified; E11.9 Type 2 diabetes mellitus without complications
CPT/HCPCS: J2060; J2270